=== PATIENT | female | born 1950 | race Caucasian/White ===

== ENCOUNTER 2018-12-31 16:38 | Outpatient (CLI) | payer MEDICARE, SELFPAY ==
[2018-12-31 14:59] LABS: Abs Immature Grans 0.02 k/cumm (0.0-0.09); Absolute Basophil Count 0.02 k/cumm (0.0-0.2); Absolute Eosinophil Count 0.03 k/cumm (0.0-0.7); Absolute Lymphocyte Count 0.79 k/cumm (1.2-3.4); Absolute Monocyte Count 1.37 k/cumm (0.11-0.7); Absolute Neutrophil Count 4.53 k/cumm (1.2-6.7); Basophils % 0.3; Eosinophils % 0.4; HCT 39.1 % (36.0-46.0); HGB 12.7 g/dL (12.0-15.5); Immature Grans % 0.3; Lymphocytes % 11.7; Mean Corp. HGB Concentration 32.5 g/dL (32.0-36.0); Mean Corpuscular Hemoglobin 29.2 pg (27.0-33.0); Mean Corpuscular Volume 89.9 fL (80-95); Mean Platelet Volume 9.4 fL (8.0-11.0); Monocytes % 20.3; Platelet Count 363 x1000/uL (130-400); RBC 4.35 m/cumm (4.00-5.20); RBC Distribution Width 13.5 % (11.7-14.6); White Blood Cell Count 6.76 k/cumm (4.4-10.8)
[2018-12-31 15:06] LABS: ALT 60 U/L (12-78); AST 39 U/L (15-37); Albumin 3.8 g/dL (3.4-5.0); Alkaline Phosphatase 122 U/L (46-116); Anion Gap 10.9 mmol/L (3-11); BUN 26 mg/dL (7-18); Bilirubin, Total 0.4 mg/dL (0.2-1.0); CO2 28.1 mmol/L (21.0-32.0); CREATININE 1.44 mg/dL (0.55-1.02); Calcium 8.7 mg/dL (8.5-10.1); Chloride 95 mmol/L (98-107); Estimated GFR 36.09 (mL/min/1.73m2); Glucose 113 mg/dL (70-100); Potassium 3.3 mmol/L (3.5-5.1); Sodium 134 mmol/L (136-145); Total Protein 7.9 g/dL (6.4-8.2)
--- NOTE | 2018-12-31 15:30 | DI.CT_ITS ---
SYMPTOM/DIAGNOSIS: RLQ PAIN, REBOUND TENDERNESS, DIARRHEA, ? APPENDICITIS ABDOMEN AND PELVIC CT: The study was carried out with oral contrast enhancement. No intravenous contrast was administered. There are some small regions of scarring in the lingula and right middle lobe. The lungs appear otherwise unremarkable with no evidence of a pleural effusion. The liver is intact. No focal abnormality is seen. The gallbladder is intact. There is no pericholecystic fluid. There are no demonstrated stones or evidence of ductal dilatation. The pancreas is unremarkable. The spleen is normal. Note is made of an 11 mm. left adrenal nodule, the findings are consistent with an adenoma. The kidneys are unremarkable. There is no evidence of nephrolithiasis or hydronephrosis. There is no evidence of bowel obstruction. Sigmoid and descending colonic diverticulosis is noted without evidence of diverticulitis. There is no evidence of an acute appendix. There are some small densities in the distal appendix which could represent contrast material or conceivably an appendicolith. The bladder is suboptimally distended. The reproductive organs as visualized appear intact. There is no evidence of free air or free fluid in the intraperitoneal space. No acute bony abnormality is seen. The soft tissues are unremarkable. Note is made of atherosclerotic changes involving the aorta and iliac vessels. There is no evidence of an aneurysm. SUMMARY: Question small appendicolith or appendicoliths. There is no finding to suggest an acute appendicitis. Note is made of diverticulosis without evidence of diverticulitis. There is an apparent left adrenal adenoma measuring approximately 11 mm. in diameter.
[2018-12-31] MEDS: Breeza Beverage 473 ML BTL PO ×2 (16:17→16:18)
[2018-12-31] MEDS: Omnipaque 350 MG/ML 50 ML BTL PO (16:18)
--- NOTE | 2018-12-31 16:56 | DI.VRAD_ITS ---
EXAM: CT Abdomen and Pelvis Without Contrast EXAM DATE/TIME: 12/31/2018 2:16 PM CLINICAL HISTORY: 68 years old, female; Signs and symptoms; Other: Rlq abd pain with rebound tenderness, diarrhea x 5 days, ? appendicitis TECHNIQUE: Imaging protocol: Axial computed tomography images of the abdomen and pelvis without contrast. Coronal and sagittal reformatted images were created and reviewed. Radiation optimization: All CT scans at this facility use at least one of these dose optimization techniques: automated exposure control; mA and/or kV adjustment per patient size (includes targeted exams where dose is matched to clinical indication); or iterative reconstruction. COMPARISON: No relevant prior studies available. FINDINGS: Limitations: The absence of intravenous contrast material limits evaluation of the abdominal and pelvic viscera, and the vasculature. Lower thorax: Scarring in the lingula and RIGHT middle lobe. Lower chest otherwise unremarkable as visualized. ABDOMEN: Liver: The liver is normal in size and density. The hepatic contour is normal. There are no focal hepatic masses. Gallbladder and bile ducts: The gall bladder is normal in size. There is no gall bladder wall thickening. There are no gallstones or pericholecystic collection. The common duct and intrahepatic ducts are normal in caliber. Pancreas: The pancreas is normal in size and density. There are no pancreatic calcifications or ductal dilatation. Spleen: The spleen is normal in size. No focal splenic lesions are noted. Adrenals: Normal RIGHT adrenal gland. 11 mm LEFT adrenal nodule with a density of 4 Hounsfield units consistent with an adenoma.There are no gross focal renal masses. No radioopaque renal calculi are noted. There is no hydronephosis. Kidneys and ureters: See Adrenals Finding. Stomach and bowel: Sigmoid and descending colonic diverticulosis. No fat stranding or fluid collections to suggest diverticulitis. There is mild thickening of the wall of a distal ileal loop (series 2, images 47-52). This is likely due to incomplete distention. There is no surrounding fat stranding to suggest inflammation. Stomach is unremarkable. There is lipomatous infiltration of the ileocecal valve. Appendix: The appendix is normal in caliber and contains a wall collapse material proximally and more hyperdense material distally, the latter probably representing an appendicolith. There is no periappendiceal fat straining or fluid collection to suggest appendicitis. PELVIS: Bladder: Contracted, limiting evaluation. Reproductive: Uterus unremarkable for age. Bilateral adnexal hypoattenuated lesions measuring up to 1.8 cm on the RIGHT and 1.0 cm on the LEFT. No followup is necessary. ABDOMEN and PELVIS: Intraperitoneal space: There is no evidence of free intraperitoneal air. There is no abdominal or pelvic ascites. Bones/joints: Degenerative changes of the lumbar spine. No acute fracture. Soft tissues: Soft tissues are unremarkable. Vasculature: Atherosclerotic calcification of the non-aneurysmal normal aorta and iliac arteries. Lymph nodes: See Adrenals Finding. IMPRESSION: 1. The appendix probably containing an appendicolith. No evidence of acute appendicitis. 2. Mild thickening of the wall of the infrarenal which may be due to incomplete distention. Pneumonitis is not excluded but less likely given the absence of surrounding fat stranding. Clinical correlation advised. 3. Colonic diverticulosis without CT evidence of diverticulitis. 4. LEFT adrenal adenoma. No followup is necessary. https://www.jacr.org/article/[email or web address]/fulltext?code=jacr-site#s ec11 <https://www.jacr.org/article/[email or web address]/fulltext?code=jacr-site> 5. Bilateral adnexal hypoattenuated lesions. No followup is necessary. Reference: Bradford Rodrigues MD, et al. (2013) Managing Incidental Findings on Abdominal and Pelvic CT and MRI, Part 1: White Paper of the ACR Incidental Findings Committee II on Adnexal Findings, JACR 10:675-678. 6. Additional incidental/nonemergent findings as discussed above. Dictated and Authenticated by: Katy Lockwood MD. Ordering:AYLEEN Arce MD
== END 2018-12-31 16:58 ==
DX: R19.7 Diarrhea, unspecified (principal); R10.31 Right lower quadrant pain; K57.90 Diverticulosis of intestine, part unspecified, without perforation or abscess without bleeding; D35.00 Benign neoplasm of unspecified adrenal gland
CPT/HCPCS: 80053; 74176; 82565; 85025; Q9967

== ENCOUNTER 2019-01-12 08:26 | Inpatient (IN) | payer MEDICARE, SELFPAY ==
[2019-01-12] VITALS (34 sets, daily range): BP systolic 93–154; BP diastolic 55–91; PULSE 105–127; RESP 18–42; TEMP 36.7–37.2; O2SAT 85–100
--- NOTE | 2019-01-12 08:38 | DI.RAD_ITS ---
SYMPTOM/DIAGNOSIS: COUGH, SOB, COPD R/O PNEUMONIA PA AND LATERAL CHEST: 01/12/19 The heart is not enlarged. There appears to be changes of COPD and mild interstitial scarring. No focal consolidation seen. No pleural effusion seen. CONCLUSION: No evidence of acute disease.
--- NOTE | 2019-01-12 08:40 | W.ED.GENAD ---
Discharge Plan Disposition Patient Disposition: [facility] INPATIENT Condition: Improving Discharge Details Chief Complaint: RespSymp Clinical Impression: Community acquired pneumonia, Asthma exacerbation in COPD Primary Care Provider: Yazmin Yañez ED Provider: Levy Sutton Home Meds and New Rx's Prescriptions: No Action fluticasone propion-salmeterol [Advair Diskus] 1 EACH blister with device 1 puff Inhalation BID Qty: 3 RF: 4 albuterol sulfate 2.5 MG/3 ML solution for nebulization 1 amp Inhalation QID PRN Qty: 50 RF: 11 amlodipine 5 MG tablet 5 mg PO DAILY Qty: 90 RF: 4 omeprazole 20 MG capsule,delayed release(DR/EC) 20 mg PO DAILY Qty: 90 RF: 3 montelukast 10 MG tablet 10 mg PO DAILY Qty: 90 RF: 3 furosemide 20 MG tablet 20 mg PO QAM Qty: 90 RF: 4 COMBIVENT RESPIMAT INHAL SPRAY 4 GM AER.W.ADAP 1 puff Inhalation QID Qty: 3 RF: 4 Medical Decision Making This is a pleasant 68-year-old female who presents with 3 weeks of cough, shortness of breath, productive green yellow and yao sputum. She has pain only with cough, no severe pleuritic chest pain or chest heaviness or tightness. No history of cardiac disease. She did have diarrhea 3 weeks ago which led to a CT scan of her abdomen pelvis which showed no evidence of significant abnormality at that time in her chest abdomen or pelvis. Exam today demonstrates mild tachypnea, mild hypoxemia, and tachycardia. She is afebrile. Exam demonstrates crackles in the bases and wheezes throughout. Concern for community-acquired pneumonia in conjunction with COPD exacerbation. Will perform a cardiac workup, rehydrate, treat for COPD and reassess. It is likely she will require admission. 11:41 AM Laboratory workup demonstrates an elevated white count, notable left shift, no bandemia, electrolytes demonstrate slightly low potassium and calcium which are being corrected. VBG shows mild CO2 retention at 52. Renal function stable, troponin normal, proBNP normal. Initial chest x-ray read was read as unchanged, however I do feel that there is infiltrate in the right lower cardiac border, concerning for potential community-acquired pneumonia. Patient has responded well to the breathing treatments and steroids. With a benign EKG, normal troponin, I feel that her signs and symptoms are clinically consistent with COPD exacerbation in conjunction with community-acquired pneumonia. We have started Rocephin and azithromycin. I discussed the case with hospitalist, the hospital staff agrees with the assessment and plan. The patient will be admitted for further medical management I have extensively reviewed the treatment plan with the patient. I have addressed all patient concerns at this time. I have also discussed the plan with the admitting physician and they agree with the current assessment and plan and have agreed to assume responsibility for the patient. All parties demonstrate verbal understanding and agreement with our assessment and plan at this time. . EKG 8: 47 Rate 115, intervals normal, sinus tachycardia, no significant ST elevations or depressions, small Q wave noted in lead III, no T wave inversions. No evidence of STEMI HPI General Date/Time Provider Initiated Documentation: 01/12/19 08:30. HPI Narrative: This is a 68-year-old female with a past medical history of COPD, hypertension, arthritis, who presents today for evaluation of shortness of breath and cough for the last 3 weeks. She has associated productive yellow and green sputum. Occasional yao sputum. She does admit to chills but denies any fever. She does have some pain when she is coughing but denies any regular chest pain, chest pressure, chest heaviness, arm, neck, or shoulder pain. She has been taking her breathing treatment but this is not resolved her symptoms. She denies any history of cardiac disease or blood clot. She does admit to mild swelling around her ankles. Patient denies any recent long trips, surgeries or procedures. She denies any other acute complaints. Breathing treatments have been slightly improving her symptoms. Patient denies any other complaints at this time. Related Data Home Medications Medication Instructions Recorded Confirmed albuterol sulfate 1 amp INHALATION QID PRN #50 amp 05/27/18 01/12/19 amlodipine 5 mg PO DAILY #90 tab-cap 05/27/18 01/12/19 fluticasone propion-salmeterol 1 puff INHALATION BID #3 disk 05/27/18 01/12/19 [Advair 250/50 Diskus] furosemide 20 mg PO QAM #90 tab-cap 05/27/18 01/12/19 montelukast 10 mg PO DAILY #90 tab-cap 05/27/18 01/12/19 omeprazole 20 mg PO DAILY #90 tab-cap 05/27/18 01/12/19 Previous Rx's Medication Instructions Recorded albuterol sulfate 1 amp INHALATION QID PRN #50 amp 05/27/18 amlodipine 5 mg PO DAILY #90 tab-cap 05/27/18 fluticasone propion-salmeterol 1 puff INHALATION BID #3 disk 05/27/18 [Advair 250/50 Diskus] furosemide 20 mg PO QAM #90 tab-cap 05/27/18 montelukast 10 mg PO DAILY #90 tab-cap 05/27/18 omeprazole 20 mg PO DAILY #90 tab-cap 05/27/18 Allergies Allergy/AdvReac Type Severity Reaction Status Date / Time hydrochlorothiazide Allergy Mild rash Verified 01/12/19 08:40 Sulfa (Sulfonamide Allergy Unknown Verified 01/12/19 08:40 Antibiotics) lisinopril AdvReac Mild did not Verified 01/12/19 08:40 feel well General Stated Complaint: RespSymp KAYCE: 3 Review of Systems Review of Systems All systems reviewed & are unremarkable except as noted in HPI and below PFSH Surgical History Endoscopic Carpal Tunnel release (03/31/13) Family History Mother Essential hypertension Hyperlipidemia Father Heart disease Neoplasm Sister No problems noted. Sister No problems noted. Brother No problems noted. Brother No problems noted. Grandfather Stroke Grandfather Heart disease Grandmother Heart disease Grandmother Stroke Son Diabetes Essential hypertension Daughter No problems noted. Social History Smoking/Tobacco Use Status: Former Tobacco Use Alcohol Intake: never Drug use: Never Do you feel safe at home: Yes Do you feel safe in your relationship?: Yes Exam Narrative Exam Narrative: 1.Const: Well-nourished, Well-developed, appearing stated age 2.Eyes: PERRL, no conjunctival injection, and symmetrical lids. 3.ENT: Atraumatic external nose and ears. Moist MM. Neck: Symmetric, trachea midline, No thyromegaly. 4.CVS: +S1/S2, No murmurs or gallops. Peripheral pulses 2+ and equal in all extremities. Brisk capillary refill in all extremities. 5.RESP: Mild tachypnea, reduced breath sounds throughout, wheezes throughout, crackles in the bases. 6.GI: Soft, Nontender/Nondistended, No hepatosplenomegaly. No guarding or rebound. 7.MSK: Normocephalic/Atraumatic, Extremities w/o deformity or ttp No cyanosis or clubbing, Normal movement of all extremities. No calf tenderness. 8.Skin: Warm, Dry. No rashes or lesions. 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 Sensation grossly intact, no focal neurologic deficits. 10.Psych: (AAO) x3. Appropriate mood and affect Course Vital Signs Temperature 36.7 C 01/12/19 08:30 Pulse 118 H 01/12/19 08:30 Respiratory Rate 20 01/12/19 08:30 Blood Pressure 133/80 01/12/19 08:30 Pulse Oximetry 91 L 01/12/19 08:30 Temperature 36.7 C 01/12/19 08:30 Temperature Source Temporal Artery Scan 01/12/19 08:30 Pulse 118 H 01/12/19 08:30 Respiratory Rate 20 01/12/19 08:30 Respiratory Effort Accessory Muscle Use 01/12/19 08:38 Blood Pressure 133/80 01/12/19 08:30 Blood Pressure Position Sitting 01/12/19 08:30 Pulse Oximetry 91 L 01/12/19 08:30 Oxygen Delivery Method Room Air 01/12/19 08:30 Oxygen Flow Rate 0 01/12/19 08:30
[2019-01-12] MEDS: Albuterol/Ipratropium 3 ML UPD VIAL UPD ×3 (08:48→23:38)
[2019-01-12] MEDS: methylPREDNISolone SUCC 125 MG VIAL IVP (09:05)
[2019-01-12] MEDS: Normal Saline 1,000 ML 1000 ML IV (09:08)
[2019-01-12 09:18] LABS: BE (Venous) 4.6 mmol/L (-3-3); HCO3 (Venous) 30 mmol/L (22-28); O2 Sat (Venous) 64 % (70-80); TCO2 (Venous) 28 mmol/L (22-29); pCO2 (Venous) 52 mm/Hg (34-47); pH (Venous) 7.37 (7.32-7.43); pO2 (Venous) 35 mm/Hg (28-44)
[2019-01-12 09:20] LABS: Abs Immature Grans 0.03 k/cumm (0.0-0.09); Absolute Eosinophil Count 0.04 k/cumm (0.0-0.7); Absolute Lymphocyte Count 0.76 k/cumm (1.2-3.4); Basophils % 0.2; Eosinophils % 0.3; HCT 36.3 % (36.0-46.0); HGB 11.4 g/dL (12.0-15.5); Immature Grans % 0.2; Lymphocytes % 6.2; Mean Corp. HGB Concentration 31.4 g/dL (32.0-36.0); Mean Corpuscular Hemoglobin 28.9 pg (27.0-33.0); Mean Corpuscular Volume 91.9 fL (80-95); Mean Platelet Volume 9.3 fL (8.0-11.0); Neutrophils % 80.1; Platelet Count 430 x1000/uL (130-400); RBC 3.95 m/cumm (4.00-5.20); RBC Distribution Width 13.8 % (11.7-14.6); White Blood Cell Count 12.33 k/cumm (4.4-10.8)
[2019-01-12 09:26] LABS: Absolute Basophil Count 0.02 k/cumm (0.0-0.2); Absolute Neutrophil Count 9.88 k/cumm (1.2-6.7)
[2019-01-12 09:34] LABS: PTT Activated 28.9 sec (21.0-31.4); Prothrombin Time 10.2 sec (9.3-11.0)
[2019-01-12 09:46] LABS: Diff Comment Diff Reviewed; RBC Morphology Normal
[2019-01-12 09:47] LABS: NT-proBNP 391 pg/mL
[2019-01-12 09:49] LABS: ALT 19 U/L (12-78); AST 12 U/L (15-37); Alkaline Phosphatase 115 U/L (46-116); Anion Gap 10.9 mmol/L (3-11); BUN 11 mg/dL (7-18); Bilirubin, Total 0.5 mg/dL (0.2-1.0); CO2 29.1 mmol/L (21.0-32.0); CREATININE 0.91 mg/dL (0.55-1.02); Calcium 7.7 mg/dL (8.5-10.1); Chloride 97 mmol/L (98-107); Glucose 107 mg/dL (70-100); Potassium 3.3 mmol/L (3.5-5.1); Sodium 137 mmol/L (136-145); TSH (W/Ref FT4) 2.43 uIU/mL (0.358-3.74); Total Protein 7.7 g/dL (6.4-8.2); Troponin I < 0.02 ng/mL (0.00-0.06)
[2019-01-12] MEDS: Albuterol/Ipratropium 3 ML UPD VIAL (10:04)
[2019-01-12] MEDS: cefTRIAXone 2 GM/50 ML BAG IVPB (10:52)
[2019-01-12] MEDS: Normal Saline 1,000 ML 100 ML IV (11:19)
[2019-01-12] MEDS: AZITHROMYCIN 500 MG in Normal Saline 250 ML 250 MG IVPB (11:31)
[2019-01-12] MEDS: POTASSIUM CHLORIDE 20 MEQ/100 ML BAG 50 MEQ IVPB (12:07)
[2019-01-12] MEDS: Enoxaparin 40 MG/0.4 ML SYR SC (13:42)
[2019-01-12] MEDS: Benzonatate 100 MG CAP PO ×2 (13:42→19:52)
[2019-01-12] MEDS: Normal Saline 1,000 ML 110 ML IV ×2 (14:15→20:51)
--- NOTE | 2019-01-12 14:31 | HPE_ITS ---
Date of service: 01/12/19 Time of Service: 14:28 Assessment and Plan (1) CAP (community acquired pneumonia): Start date: 01/12/19 Start time: 15:07 Current visit: Yes Status: Acute CAP started on ceftriaxone and azithromycin IV, steroids, blood cultures pending, mucolytics, updrafts, xoponex. Sputum cultures pending. She is requiring oxygen at this time. Continue to monitor. Echo was ordered given her COPD with c/o leg swelling in the evening, continue to monitor for fluid overload. (2) COPD with acute exacerbation: Start date: 01/12/19 Start time: 15:16 Current visit: Yes Status: Acute In the setting of pneumonia see above, SOB, tachycardia, O2 requirement of 2 liters at this time. (3) GERD (gastroesophageal reflux disease): Start date: 01/12/19 Start time: 15:26 Current visit: Yes Status: Chronic Protonix 40 mg daily (4) HTN (hypertension): Start date: 01/12/19 Start time: 15:27 Current visit: Yes Status: Chronic Continue home dose of amlodipine (5) DVT prophylaxis: Start date: 01/12/19 Start time: 15:27 Current visit: Yes Status: Acute lovenox subcu History of Present Illness Chief Complaint: CAP, COPD Exacerbation Narrative: Mrs. Myers is a 68 y.o female arriving to [facility] emergency deparment today with PMH of COPD non-oxygen dependent complaining of cough with yellow, green and brown sputum production and Shortness of breath. 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 She quit smoking 9 years ago. She has a PMH of COPD, HTN, Migraines. GERD. She had a bout of abdominal pain with diarrhea last week and was seen in the [facility] emergency department where an abdominal CT scan was done, resulting in small appendicolith no acute appendicitis. She was sent home, and she states she stayed in bed for two days. At this time she believes her breathing was worsening she started with a cough. She endorses chills, thinks she had a fever but did not check temperature. She came in today after worsening SOB x last couple days with ta chypnea, tachycardia, mild hypoxemia requiring 2 L oxygen. She was asked to be admitted to med surg. She was started on cefttiraxone with azithromycin, EKG was normal in ED with no history of CHF or cardiac disease. Blood cultures done in the ED are pending. We will obtain a sputum culture, start steroids, updrafts, neb with xoponex given the patient is tachy, and IVF. She has not had an echo and does endorse swelling to bilateral lower extremities at night. Her lungs are diminished but clear no wheezing, or rhonchi. No edema to bilateral extremities at this time. She denies CP, SOB, n/v/d. Review of Systems Constitutional Reports system reviewed and no additional complaints, except as docu Eyes Reports system reviewed and no additional complaints, except as docu ENT Reports system reviewed and no additional complaints, except as docu Cardiovascular Reports system reviewed and no additional complaints, except as docu Respiratory Reports as per HPI Gastrointestinal Reports system reviewed and no additional complaints, except as docu Genitourinary Reports system reviewed and no additional complaints, except as docu Musculoskeletal Reports system reviewed and no additional complaints, except as docu Integumentary/Breasts Reports system reviewed and no additional complaints, except as docu Neurologic Reports system reviewed and no additional complaints, except as docu Psychiatric Reports system reviewed and no additional complaints, except as docu Endocrine Reports system reviewed and no additional complaints, except as docu Hematologic/Lymphatic Reports system reviewed and no additional complaints, except as docu Allergic/Immunologic Reports system reviewed and no additional complaints, except as docu PFSH Medical History COPD (chronic obstructive pulmonary disease) (Chronic) GERD (gastroesophageal reflux disease) (Chronic) HTN (hypertension) (Chronic) Surgical History Endoscopic Carpal Tunnel release (03/31/13) Family History Mother Essential hypertension Hyperlipidemia Father Heart disease Neoplasm Sister No problems noted. Sister No problems noted. Brother No problems noted. Brother No problems noted. Grandfather Stroke Grandfather Heart disease Grandmother Heart disease Grandmother Stroke Son Diabetes Essential hypertension Daughter No problems noted. Social History Smoking/Tobacco Use Status: Former Tobacco Use Alcohol Intake: never Drug use: Never Do you feel safe at home: Yes Do you feel safe in your relationship?: Yes Meds Home Medications Medication Instructions Recorded Confirmed Type Combivent Respimat Inhal [place] 1 puff INHALATION QID #3 inhaler 05/27/18 01/12/19 Clinic albuterol sulfate 1 amp INHALATION QID PRN #50 amp 05/27/18 01/12/19 Rx amlodipine 5 mg PO DAILY #90 tab-cap 05/27/18 01/12/19 Rx fluticasone propion-salmeterol 1 puff INHALATION BID #3 disk 05/27/18 01/12/19 Rx [Advair 250/50 Diskus] furosemide 20 mg PO QAM #90 tab-cap 05/27/18 01/12/19 Rx montelukast 10 mg PO DAILY #90 tab-cap 05/27/18 01/12/19 Rx omeprazole 20 mg PO DAILY #90 tab-cap 05/27/18 01/12/19 Rx guaifenesin [Mucinex] 600 mg PO BID PRN 01/12/19 01/12/19 History Allergies Allergy/AdvReac Type Severity Reaction Status Date / Time hydrochlorothiazide Allergy Mild rash Verified 01/12/19 08:40 Sulfa (Sulfonamide Allergy Unknown Verified 01/12/19 08:40 Antibiotics) lisinopril AdvReac Mild did not Verified 01/12/19 08:40 feel well Exam Const General: cooperative and no acute distress Orientation: alert, awake and oriented x3 HENMT Head: normal to inspection Eyes General: appearance normal, both eyes and all related structures Pupils: PERRL Neck Neck: normal visual inspection Chest Chest: normal inspection of the chest Resp Effort & Inspection: able to speak in complete sentences and tachypneic Auscultation: clear to auscultation bilaterally Cardio Jugular venous pressure: no JVD Palpation: normal PMI Rate: regular rate Rhythm: regular rhythm Heart Sounds: S1 normal GI Inspection: normal to inspection Auscultation: normal bowel sounds Skin General skin exam: no rashes or lesions noted Neuro General: alert, awake and oriented x3 Extrem General: normal to inspection Results Labs : 01/12/19 09:05 01/12/19 09:05 Laboratory Results - last 24 hr 01/12/19 01/12/19 01/12/19 08:37 09:05 09:05 WBC RBC Hgb Hct MCV MCH MCHC RDW Plt Count MPV Immature Gran % Neutrophils % Lymphocytes % Monocytes % Eosinophils % Basophils % Absolute Neutrophils Absolute Lymphocytes Absolute Monocytes Absolute Eosinophils Absolute Basophils Differential Comment RBC Morphology PT INR APTT VBG pH VBG pCO2 VBG pO2 VBG HCO3 VBG Total CO2 VBG O2 Saturation VBG Base Excess Sodium 137 Potassium 3.3 L Chloride 97 L Carbon Dioxide 29.1 Anion Gap 10.9 BUN 11 Creatinine 0.91 Estimated GFR/1.73 m2 >= 60.00 Glucose 107 H Lactate 1.0 Calcium 7.7 L Total Bilirubin 0.5 AST 12 L ALT 19 Alkaline Phosphatase 115 Troponin I < 0.02 NT-Pro-B Natriuret Pep 391 H Total Protein 7.7 Albumin 3.0 L TSH 2.43 01/12/19 01/12/19 01/12/19 09:05 09:05 09:05 WBC 12.33 H RBC 3.95 L Hgb 11.4 L Hct 36.3 MCV 91.9 MCH 28.9 MCHC 31.4 L RDW 13.8 Plt Count 430 H MPV 9.3 Immature Gran % 0.2 Neutrophils % 80.1 Lymphocytes % 6.2 Monocytes % 13.0 Eosinophils % 0.3 Basophils % 0.2 Absolute Neutrophils 9.88 H Absolute Lymphocytes 0.76 L Absolute Monocytes 1.60 H Absolute Eosinophils 0.04 Absolute Basophils 0.02 Differential Comment Diff reviewed RBC Morphology Normal PT 10.2 INR 1.0 APTT 28.9 VBG pH 7.37 VBG pCO2 52 H VBG pO2 35 VBG HCO3 30 H VBG Total CO2 28 VBG O2 Saturation 64 L VBG Base Excess 4.6 H Sodium Potassium Chloride Carbon Dioxide Anion Gap BUN Creatinine Estimated GFR/1.73 m2 Glucose Lactate Calcium Total Bilirubin AST ALT Alkaline Phosphatase Troponin I NT-Pro-B Natriuret Pep Total Protein Albumin TSH Last Vital Signs Temp 37.1 C 01/12/19 12:56 Pulse 120 H 01/12/19 12:56 Resp 21 01/12/19 12:56 BP 129/79 01/12/19 12:56 Pulse Ox 94 L 01/12/19 12:56
[2019-01-12] MEDS: guaiFENesin 600 MG TABCR PO (19:51)
[2019-01-12] MEDS: Budesonide/Formoterol 160/4.5 6 GM 60 PUFF INH IH (19:51)
[2019-01-12] MEDS: Normal Saline Flush 10 ML SYR IVP (19:51)
[2019-01-12] MEDS: methylPREDNISolone SUCC 125 MG VIAL 80 MG IVP (19:52)
[2019-01-13] VITALS (15 sets, daily range): BP systolic 128–152; BP diastolic 68–88; PULSE 108–120; RESP 2–24; TEMP 36.2–37.3; O2SAT 90–94
[2019-01-13] MEDS: Albuterol/Ipratropium 3 ML UPD VIAL UPD ×4 (06:01→23:43)
[2019-01-13] MEDS: Normal Saline 1,000 ML 110 ML IV (06:01)
[2019-01-13] MEDS: Budesonide/Formoterol 160/4.5 6 GM 60 PUFF INH IH ×2 (07:17→19:46)
--- NOTE | 2019-01-13 07:31 | PT.INIE ---
Date of service: 01/12/19 Time of Service: 15:42 PT Notes Inpatient Physical Therapy Evaluation Date: 01/12/2019 Referring Doctor: Bianca Prescott NP PT Orders: PT CONSULT: Chronic disease deconditioning Precautions: Fall. Standard. Low endurance, needs frequent rests. Patient Profile/Admitting Diagnosis: Patient is a 68-year-old female who presented to the ED early this morning with chief complaints of cough with yellow, green and brown sputum as well as shortness of breath. Patient was found to be tachypneic, tachycardic and mildly hypoxemic requiring 2 L of oxygen. Patient was diagnosed with community-acquired pneumonia and with acute on chronic obstructive pulmonary disease and is on DVT prophylaxis. Orders for physical therapy received today for functional mobility training and maximization of functional activity tolerance. 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 She is independent with all aspects of ADLs with no assistive ambulatory device nor adaptive equipment. She still drives. She states she has 1 step to enter the house who he shares with her son and grandson. Current Functional Limitations: Patient has poor activity tolerance which has limited her ability to participate in all aspects of ADLs Equipment Owned/DME: None Subjective: Patient was seen lying in bed with head of bed elevated some 30 degrees. She is agreeable to a PT consult although is unsure of how much will be due to persistent shortness of breath. Objective: General Observation: Continuous oxygen at 2 L/min via NC. Patient seen dyspneic at rest and with conversation. Swelling on BUE/LE noted. No digital clubbing/cyanosis observed. Mental Status: Alert and oriented x3 Pain: 0/10 ROM: Right Upper Extremity: Shoulder Flexion WFL. Shoulder abduction WFL. Elbow flexion WFL. Wrist flexion WFL. Functional opening and closing of hand WFL. Left Upper Extremity: Shoulder Flexion WFL. Shoulder abduction WFL. Elbow flexion WFL. Wrist flexion WFL. Functional opening and closing of hand WFL. Right Lower Extremity: Hip flexion WFL. Hip abduction WFL. Knee flexion WFL. Ankle dorsiflexion WFL. Ankle plantarflexion WFL. Left Lower Extremity: Hip flexion WFL. Hip abduction WFL. Knee flexion WFL. Ankle dorsiflexion WFL. Ankle plantarflexion WFL. STRENGTH: Right Upper Extremity: Shoulder flexors 5/5. Shoulder abductors 5/5. Elbow flexors 5/5. Elbow extensors 5/5. Pneumatic Tester Mechanic strong. Left Upper Extremity: Shoulder flexors 5/5. Shoulder abductors 5/5. Elbow flexors 5/5. Elbow extensors 5/5. Pneumatic Tester Mechanic strong. Right Lower Extremity: Hip flexors 4/5. Hip abductors 4/5. Knee flexors 4/5. Knee extensors 4/5. Ankle dorsiflexors 5/5. Ankle plantarflexors 5/5. Right Lower Extremity:Hip flexors 4/5. Hip abductors 4/5. Knee flexors 4/5. Knee extensors 4/5. Ankle dorsiflexors 5/5. Ankle plantarflexors 5/5. Sensation: Intact to B UE LE as to pain and pressure. BED MOBILITY LEVELS/TRANSFERS Rolling supervision Supine to sit supervision Sit to supine supervision Sit to stand SBA Stand to sit SBA Bed to chair SBA Chair to bed SBA Gait: Patient managed to perform level surface ambulation although with significant difficulty and shortness of breath 40 feet up to the hallway, 20 feet inside room x 3 with slowed theresa and with trunk hunched due to SOB with oxygen saturation ranging from 84% to 91% on 2 L of oxygen. Patient complained of dizziness and supplementation was increased to 3 L back two with extensive cueing for pursed lip breathing. Balance: Static Sitting: Good Dynamic Sitting: Good Static Standing: Fair Dynamic Standing: Fair Special Tests: Mobility Limitations Standardized Measure [facility] AM-PAC 6 clicks basic Mobility Inpatient Short Form: Raw Score: 22 CMS score: 21% deficit 4-Stage Balance Test: Feet side by side 10 minutes. Instep to big toe position 10 minutes. Tandem stand 10 minutes able to assume with assistance but unable to maintain. Standing on one foot 10 minutes able to assume with assistance but unable to mid. Informed Consent/Education: Patient instructed in purpose of PT consult and plan of care. She was instructed on correct technique for pursed lip breathing, activity pacing, and energy conservation techniques. Assessment: Patient is a 68 year old female referred to physical therapy services with the diagnosis of progression of community-acquired pneumonia acute on chronic COPD. Patient presents with clinical signs and symptoms consistent with current/admitting diagnoses that have resulted to mobility limitations, gait instability, generalized weakness, and impairment of motor control as demonstrated by the following impairment level findings: 1. Decreased strength to B LE major muscle groups 2. Impaired sitting/standing balance 3. Impaired activity tolerance Impairments are contributing to the following functional limitations: 1. Increased completion time for bed mobility skills 2. Increased completion time for transfers 3. Inability to safely ambulate without assistive device and physical assistance 4. Increase completion time for mobility ADL performance 5. Increased fall risk 6. Inability to negotiate steps alone safely Patient is assessed as a Moderate 85173 complexity based on the following: History: 68-year-old female with diagnosis of complete acquired pneumonia and acute on chronic COPD had been independent with all aspects of ADLs prior to admission he Examination: Underlying impairments and functional deficits resulting to 1 AM-PAC score of 22 and an equivalent CMS score of 21% deficit Presentation: Evolving Decision Makin moderate complexity Goals: Goals X1 week 1. Supine-Sit independent 2. Sit-Supine independent 3. Sit-Stand independent 4. Stand-Sit independent 5. Bed-Chair independent 6. Chair-Bed independent 7. Independent gait on level surface without use of assistive device for at least 300 feet without report of pain nor dyspnea 8. Independent stair negotiation while holding onto bilateral rails for at least 3 steps without report of pain nor dyspnea 9. Independent with home exercise program 10. Good static and dynamic standing balance/tolerance Plan of Care/Treatment Plan: 1-2x/day, 7 days/week x 1 week. Plan of care has been reviewed with the EXERCISE PLANNER providing the service under Physical Therapy direction. Initiate Physical Therapy intervention for strengthening, bed mobility, transfers, gait, stairs, balance training, use of assistive device. DISCHARGE RECOMMENDATIONS: Patient will highly benefit from participating in a in outpatient pulmonary rehabilitation program to facilitate return to premorbid independent level. No anticipated equipment needs. TREATMENT CODE/TIME: 9716 237 minutes beginning at 15:42 PM. Thank you for this referral. Susana Lainez, PT, DPT, CLT [facility]
--- NOTE | 2019-01-13 07:34 | IN_ITS ---
Date of service: 01/12/19 Time of Service: 15:42 PT Notes Inpatient Physical Therapy Evaluation Date: 01/12/2019 Referring Doctor: Bianca Prescott NP PT Orders: PT CONSULT: Chronic disease deconditioning Precautions: Fall. Standard. Low endurance, needs frequent rests. Patient Profile/Admitting Diagnosis: Patient is a 68-year-old female who presented to the ED early this morning with chief complaints of cough with yellow, green and brown sputum as well as shortness of breath. Patient was found to be tachypneic, tachycardic and mildly hypoxemic requiring 2 L of oxygen. Patient was diagnosed with community-acquired pneumonia and with acute on chronic obstructive pulmonary disease and is on DVT prophylaxis. Orders for physical therapy received today for functional mobility training and maximization of functional activity tolerance. 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 She is independent with all aspects of ADLs with no assistive ambulatory device nor adaptive equipment. She still drives. She states she has 1 step to enter the house who he shares with her son and grandson. Current Functional Limitations: Patient has poor activity tolerance which has limited her ability to participate in all aspects of ADLs Equipment Owned/DME: None Subjective: Patient was seen lying in bed with head of bed elevated some 30 degrees. She is agreeable to a PT consult although is unsure of how much will be due to persistent shortness of breath. Objective: General Observation: Continuous oxygen at 2 L/min via NC. Patient seen dyspneic at rest and with conversation. Swelling on BUE/LE noted. No digital clubbing/cyanosis observed. Mental Status: Alert and oriented x3 Pain: 0/10 ROM: Right Upper Extremity: Shoulder Flexion WFL. Shoulder abduction WFL. Elbow flexion WFL. Wrist flexion WFL. Functional opening and closing of hand WFL. Left Upper Extremity: Shoulder Flexion WFL. Shoulder abduction WFL. Elbow flexion WFL. Wrist flexion WFL. Functional opening and closing of hand WFL. Right Lower Extremity: Hip flexion WFL. Hip abduction WFL. Knee flexion WFL. Ankle dorsiflexion WFL. Ankle plantarflexion WFL. Left Lower Extremity: Hip flexion WFL. Hip abduction WFL. Knee flexion WFL. Ankle dorsiflexion WFL. Ankle plantarflexion WFL. STRENGTH: Right Upper Extremity: Shoulder flexors 5/5. Shoulder abductors 5/5. Elbow flexors 5/5. Elbow extensors 5/5. Bisque Grader strong. Left Upper Extremity: Shoulder flexors 5/5. Shoulder abductors 5/5. Elbow flexors 5/5. Elbow extensors 5/5. Bisque Grader strong. Right Lower Extremity: Hip flexors 4/5. Hip abductors 4/5. Knee flexors 4/5. Kne e extensors 4/5. Ankle dorsiflexors 5/5. Ankle plantarflexors 5/5. Right Lower Extremity:Hip flexors 4/5. Hip abductors 4/5. Knee flexors 4/5. Knee extensors 4/5. Ankle dorsiflexors 5/5. Ankle plantarflexors 5/5. Sensation: Intact to B UE LE as to pain and pressure. BED MOBILITY LEVELS/TRANSFERS Rolling supervision Supine to sit supervision Sit to supine supervision Sit to stand SBA Stand to sit SBA Bed to chair SBA Chair to bed SBA Gait: Patient managed to perform level surface ambulation although with significant difficulty and shortness of breath 40 feet up to the hallway, 20 feet inside room x 3 with slowed theresa and with trunk hunched due to SOB with oxygen saturation ranging from 84% to 91% on 2 L of oxygen. Patient complained of dizziness and supplementation was increased to 3 L back two with extensive cueing for pursed lip breathing. Balance: Static Sitting: Good Dynamic Sitting: Good Static Standing: Fair Dynamic Standing: Fair Special Tests: Mobility Limitations Standardized Measure [facility] AM-PAC 6 clicks basic Mobility Inpatient Short Form: Raw Score: 22 CMS score: 21% deficit 4-Stage Balance Test: Feet side by side 10 minutes. Instep to big toe position 10 minutes. Tandem stand 10 minutes able to assume with assistance but unable to maintain. Standing on one foot 10 minutes able to assume with assistance but unable to mid. Informed Consent/Education: Patient instructed in purpose of PT consult and plan of care. She was instructed on correct technique for pursed lip breathing, activity pacing, and energy conservation techniques. Assessment: Patient is a 68 year old female referred to physical therapy services with the diagnosis of progression of community-acquired pneumonia acute on chronic COPD. Patient presents with clinical signs and symptoms consistent with current/admitting diagnoses that have resulted to mobility limitations, gait instability, generalized weakness, and impairment of motor control as demonstrated by the following impairment level findings: 1. Decreased strength to B LE major muscle groups 2. Impaired sitting/standing balance 3. Impaired activity tolerance Impairments are contributing to the following functional limitations: 1. Increased completion time for bed mobility skills 2. Increased completion time for transfers 3. Inability to safely ambulate without assistive device and physical assistance 4. Increase completion time for mobility ADL performance 5. Increased fall risk 6. Inability to negotiate steps alone safely Patient is assessed as a Moderate [id number] complexity based on the following: History: 68-year-old female with diagnosis of complete acquired pneumonia and acute on chronic COPD had been independent with all aspects of ADLs prior to admission he Examination: Underlying impairments and functional deficits resulting to 1 AM- PAC score of 22 and an equivalent CMS score of 21% deficit Presentation: Evolving Decision Makin moderate complexity Goals: Goals X1 week 1. Supine-Sit independent 2. Sit-Supine independent 3. Sit-Stand independent 4. Stand-Sit independent 5. Bed-Chair independent 6. Chair-Bed independent 7. Independent gait on level surface without use of assistive device for at least 300 feet without report of pain nor dyspnea 8. Independent stair negotiation while holding onto bilateral rails for at least 3 steps without report of pain nor dyspnea 9. Independent with home exercise program 10. Good static and dynamic standing balance/tolerance Plan of Care/Treatment Plan: 1-2x/day, 7 days/week x 1 week. Plan of care has been reviewed with the CHIEF ACCOUNTING OFFICER providing the service under Physical Therapy direction. Initiate Physical Therapy intervention for strengthening, bed mobility, transfers, gait, stairs, balance training, use of assistive device. DISCHARGE RECOMMENDATIONS: Patient will highly benefit from participating in a in outpatient pulmonary rehabilitation program to facilitate return to premorbid independent level. No anticipated equipment needs. TREATMENT CODE/TIME: 9716 237 minutes beginning at 15:42 PM. Thank you for this referral. Susana Lainez, PT, DPT, CLT [facility]
[2019-01-13 07:45] LABS: Abs Immature Grans 0.04 k/cumm (0.0-0.09); Absolute Basophil Count 0.01 k/cumm (0.0-0.2); Absolute Lymphocyte Count 0.52 k/cumm (1.2-3.4); Absolute Monocyte Count 0.45 k/cumm (0.11-0.7); Absolute Neutrophil Count 9.17 k/cumm (1.2-6.7); Basophils % 0.1; HCT 34.7 % (36.0-46.0); HGB 10.5 g/dL (12.0-15.5); Immature Grans % 0.4; Lymphocytes % 5.1; Mean Corp. HGB Concentration 30.3 g/dL (32.0-36.0); Mean Corpuscular Hemoglobin 28.4 pg (27.0-33.0); Mean Corpuscular Volume 93.8 fL (80-95); Mean Platelet Volume 9.3 fL (8.0-11.0); Monocytes % 4.4; Platelet Count 438 x1000/uL (130-400); White Blood Cell Count 10.19 k/cumm (4.4-10.8)
[2019-01-13 07:53] LABS: Anion Gap 11.7 mmol/L (3-11); BUN 9 mg/dL (7-18); CO2 27.3 mmol/L (21.0-32.0); CREATININE 0.79 mg/dL (0.55-1.02); Calcium 7.9 mg/dL (8.5-10.1); Chloride 102 mmol/L (98-107); Glucose 152 mg/dL (70-100); Magnesium 0.9 mg/dL (1.8-2.4); Potassium 3.5 mmol/L (3.5-5.1); Sodium 141 mmol/L (136-145)
[2019-01-13] MEDS: Montelukast 10 MG TAB PO (07:53)
[2019-01-13] MEDS: Pantoprazole 40 MG TABCR PO (07:53)
[2019-01-13] MEDS: Furosemide 20 MG TAB PO (07:53)
[2019-01-13] MEDS: guaiFENesin 600 MG TABCR PO ×2 (07:53→19:46)
[2019-01-13] MEDS: methylPREDNISolone SUCC 125 MG VIAL 80 MG IVP (07:54)
[2019-01-13] MEDS: Benzonatate 100 MG CAP PO ×3 (07:54→19:46)
[2019-01-13] MEDS: amLODIPine 5 MG TAB PO (07:54)
[2019-01-13] MEDS: Normal Saline Flush 10 ML SYR IVP ×2 (07:54→23:43)
--- NOTE | 2019-01-13 07:58 | PDOC.CMIN ---
- If Service Date Differs Date of service: 01/13/19 Time of Service: 07:58 Care Management Initial Assess REASON FOR HOSPITALIZATION:: Community acquired pneumonia, COPD exacerbation PAST MEDICAL HISTORY/PAST SURGICAL HISTORY:: Medical History: COPD (chronic obstructive pulmonary disease) (Chronic), GERD (gastroesophageal reflux disease), HTN (hypertension). Surgical History: Endoscopic Carpal Tunnel release (03/31/13) PREVIOUS FUNCTIONAL STATUS/SOCIAL/FAMILY SUPPORTS:: Jackie lives in her own home with her son and grandson. She has a daughter who lives in [place] and has 2 additional grandchildren and 2 great grandchildren. 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 She is completely independent with ADLs, driving, shopping etc. CURRENT FUNCTIONAL STATUS:: Jackie was sitting up in bed receiving 2L of oxygen via nasal cannula during CM visit. She was friendly and talkative and open in her responses to questions. She states she is feeling much better today but feels her health care providers are still concerned about her breathing. ADVANCE DIRECTIVES:: On file Has patient been provided with information about the portal?: No Did the patient sign up for the portal?: No (not interested) CODE STATUS:: DNR/DNI INSURANCE COVERAGE / FINANCIAL ISSUES:: Medicare CURRENT HOME/COMMUNITY SERVICES/EQUIPMENT:: None currently but did have home oxygen for a while after a previous hospital stay. PRIMARY CARE PHYSICIAN:: Yazmin Yañez NP POTENTIAL DISCHARGE NEEDS:: May need evaluation for home oxygen. PATIENT/FAMILY EDUCATION NEEDS:: Discharge plan, limitations, follow up plan of care and Ask Me Three. ANTICIPATED BARRIERS TO DISCHARGE:: May need home oxygen but is concerned about cost. TRANSPORTATION:: Via private automobile with family at time of discharge. PLAN:: Jackie is currently receiving oxygen, IV antibiotics and respiratory support. She will return home at discharge with no services, unless she needs home oxygen. CM will continue to provide support to patient, family, care team and ongoing discharge planning.
--- NOTE | 2019-01-13 08:12 | INITIAL_ITS ---
- If Service Date Differs Date of service: 01/13/19 Time of Service: 07:58 Care Management Initial Assess REASON FOR HOSPITALIZATION:: Community acquired pneumonia, COPD exacerbation PAST MEDICAL HISTORY/PAST SURGICAL HISTORY:: Medical History: COPD (chronic obstructive pulmonary disease) (Chronic), GERD (gastroesophageal reflux disease), HTN (hypertension). Surgical History: Endoscopic Carpal Tunnel release (03/31/13) PREVIOUS FUNCTIONAL STATUS/SOCIAL/FAMILY SUPPORTS:: Jackie lives in her own home with her son and grandson. She has a daughter who lives in [place] and has 2 additional grandchildren and 2 great grandchildren. 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 She is completely independent with ADLs, driving, shopping etc. CURRENT FUNCTIONAL STATUS:: Jackie was sitting up in bed receiving 2L of oxygen via nasal cannula during CM visit. She was friendly and talkative and open in her responses to questions. She states she is feeling much better today but feels her health care providers are still concerned about her breathing. ADVANCE DIRECTIVES:: On file Has patient been provided with information about the portal?: No Did the patient sign up for the portal?: No (not interested) CODE STATUS:: DNR/DNI INSURANCE COVERAGE / FINANCIAL ISSUES:: Medicare CURRENT HOME/COMMUNITY SERVICES/EQUIPMENT:: None currently but did have home oxygen for a while after a previous hospital stay. PRIMARY CARE PHYSICIAN:: Yazmin Yañez NP POTENTIAL DISCHARGE NEEDS:: May need evaluation for home oxygen. PATIENT/FAMILY EDUCATION NEEDS:: Discharge plan, limitations, follow up plan of care and Ask Me Three. ANTICIPATED BARRIERS TO DISCHARGE:: May need home oxygen but is concerned about cost. TRANSPORTATION:: Via private automobile with family at time of discharge. PLAN:: Jackie is currently receiving oxygen, IV antibiotics and respiratory support. She will return home at discharge with no services, unless she needs home oxygen. CM will continue to provide support to patient, family, care team and ongoing discharge planning.
--- NOTE | 2019-01-13 09:00 | MERGE_ITS ---
*[facility]* *[facility]* [address] [place] [address] Date of study: 01/13/2019 Transthoracic Echocardiography M-mode, complete 2D, complete spectral Doppler, and color Doppler *STUDY CONCLUSIONS* Summary: 1. Left ventricle: The cavity size was normal. Wall thickness was normal. Systolic function was hyperdynamic. The estimated ejection fraction was 65-70%. There was no dynamic obstruction. Wall motion was normal; there were no regional wall motion abnormalities. Findings consistent with diastolic dysfunction. Doppler parameters are consistent with high ventricular filling pressure. 2. Left atrium: The atrium was mildly dilated. 3. Right ventricle: The cavity size was normal. Wall thickness was normal. Systolic function was hyperdynamic. 4. Pulmonary arteries: Pulmonary systolic pressure was increased, in the range of 40mm Hg to 50mm Hg. *PATIENT PRESENTATION* Height: 157.5cm ((62in) ) S/D Pressure: 132 / 74 Weight: 76.2kg ((167.6lb) ) BSA: 1.85m^2 Test start time: 09:10 AM. Test stop time: 10:10 AM. PERFORMING Unknown ORDERING Fernando Parikh REFERRING Fernando Parikh PERFORMING Nv CONSULTING Yazmin Yañez [employer] DES[employer] ENGINEER RT Elisa (R)(WILL), FANNY *PROCEDURE DATA* Procedure information: The patient was identified by two identifiers. This study was interpreted by [facility]. Pertinent images and digital data are archived for permanent storage and are available for subsequent review. No prior study was available for comparison. Study status: Routine. Transthoracic echocardiography. M-mode, complete 2D, complete spectral Doppler, and color Doppler. A Transthoracic Echocardiogram was performed. Scanning was performed from the parasternal, apical, subcostal, and suprasternal notch acoustic windows. Images were obtained using an [id number] cardiac ultrasound machine. Image quality was adequate. Study completion: The patient tolerated the procedure well. There were no complications. History: PMH: COPD EDEMA. *CARDIAC ANATOMY* Left ventricle: The cavity size was normal. Wall thickness was normal. Systolic function was hyperdynamic. The estimated ejection fraction was 65-70%. There was no dynamic obstruction. Wall motion was normal; there were no regional wall motion abnormalities. Findings consistent with diastolic dysfunction. Doppler parameters are consistent with high ventricular filling pressure. Aortic valve: Trileaflet; normal thickness leaflets. Mobility was not restricted. Doppler: Transvalvular velocity was within the normal range. There was no stenosis. There was no significant regurgitation. VTI ratio of LVOT to aortic valve: 0.96. Valve area (VTI): 2.8cm^2. Indexed valve area (VTI): 1.5cm^2/m^2. Peak velocity ratio of LVOT to aortic valve: 0.76. Valve area (Vmax): 2.3cm^2. Indexed valve area (Vmax): 1.2cm^2/m^2. Mean velocity ratio of LVOT to aortic valve: 0.79. Valve area (Vmean): 2.4cm^2. Indexed valve area (Vmean): 1.3cm^2/m^2. Mean gradient (S): 5.9mm Hg. Peak gradient (S): 12.3mm Hg. Aorta: Aortic root: The aortic root was normal in size. Ascending aorta: The ascending aorta was normal in size. Mitral valve: Structurally normal valve. Mobility was not restricted. Doppler: Transvalvular velocity was within the normal range. There was no evidence for stenosis. There was trivial regurgitation. Peak gradient (D): 10.1mm Hg. Left atrium: The atrium was mildly dilated. Right ventricle: The cavity size was normal. Wall thickness was normal. Systolic function was hyperdynamic. Pulmonic valve: Structurally normal valve. Doppler: Transvalvular velocity was within the normal range. There was no evidence for stenosis. There was no significant regurgitation. Tricuspid valve: Structurally normal valve. Doppler: Transvalvular velocity was within the normal range. There was no evidence for stenosis. There was trivial regurgitation. Pulmonary artery: Pulmonary systolic pressure was increased, in the range of 40mm Hg to 50mm Hg. Right atrium: The atrium was normal in size. Pericardium: There was no pericardial effusion. Systemic veins: Inferior vena cava: Well visualized. The vessel was patent and normal in size. The respirophasic diameter changes were in the normal range (greater than or equal to 50%). Baseline ECG: Tachycardia. Measurements Left ventricle Value Reference LV ID, ED, PLAX 4.7 cm 3.5 - 6.0 LV ID, ES, PLAX 3.0 cm 2.1 - 4.0 LV PW thickness, ED, PLAX 1.0 cm LV end-diastolic volume, 1-p A2C 72 ml LV ejection fraction, 1-p A2C 64 % LV end-diastolic volume, 1-p A4C 94 ml LV ejection fraction, 1-p A4C 66 % LV e', lateral 0.073 m/sec LV E/e', lateral 22 Ventricular septum Value Reference IVS thickness, ED, PLAX 0.9 cm LVOT Value Reference LVOT ID, A-P 1.9 cm LVOT area 3 cm^2 LVOT peak velocity, S 1.33 m/sec LVOT mean velocity, S 0.88 m/sec LVOT VTI, S 25.8 cm LVOT peak gradient, S 7 mm Hg LVOT mean gradient, S 3.5 mm Hg Stroke volume (SV), LVOT DP 77 ml Stroke index (SV/bsa), LVOT DP 41 ml/m^2 Aortic valve Value Reference Aortic valve peak velocity, S 1.8 m/sec Aortic valve mean velocity, S 1.12 m/sec Aortic valve VTI, S 27.0 cm Aortic mean gradient, S 5.9 mm Hg Aortic peak gradient, S 12.3 mm Hg VTI ratio, LVOT/AV 0.96 Aortic valve area, VTI 2.8 cm^2 Velocity ratio, peak, LVOT/AV 0.76 Aortic valve area, peak velocity 2.3 cm^2 Velocity ratio, mean, LVOT/AV 0.79 Aortic valve area, mean velocity 2.4 cm^2 Aortic valve area/bsa, mean velocity 1.3 cm^2/m^2 Aorta Value Reference Aortic root ID, ED 3.1 cm Ascending aorta ID, A-P, S 3.4 cm Left atrium Value Reference LA ID, A-P, ES 3.6 cm LA ID/bsa, A-P 2.0 cm/m^2 <=2.2 LA area, ES, A4C 19.5 cm^2 8.8 - 23.4 LA area, ES, A2C 21 cm^2 LA volume/bsa, ES, 1-p A4C 34 ml/m^2 LA volume, ES, 2-p 59 ml LA volume/bsa, ES, 2-p 32 ml/m^2 LA/aortic root ratio 1.16 Mitral valve Value Reference Mitral E-wave peak velocity 1.59 m/sec Mitral peak gradient, D 10.1 mm Hg Tricuspid valve Value Reference Tricuspid regurg peak velocity 3.4 m/sec Tricuspid peak RV-RA gradient 46 mm Hg Right atrium Value Reference RA area, ES, A4C 12.1 cm^2 8.3 - 19.5 Legend: (L) and (H) trinh values outside specified reference range. I have personally reviewed the images and have reviewed and edited the reported findings. Electronically signed by Omar Coley 01/13/2019 11:02
[2019-01-13] MEDS: cefTRIAXone 1 GM/50 ML BAG IVPB (11:02)
[2019-01-13] MEDS: Potassium Chloride 20 MEQ TABCR 40 MEQ PO (11:02)
--- NOTE | 2019-01-13 11:17 | PHARADMIT ---
Addendum entered by Drew Degroot III 01/15/19 14:31: Pharmacy Note Subjective Experiencing tachycardia RT working on ambulating and SAO2's Objective BP-162/83 HR-108 K+4.2 Plts-589 H&h-OK WBC-10.62 Assessment Low dose Lopressor started. ABX to PO, Azithromycin & Vantin today. Symbicort DC'd Plan plan is for discharge home tomorrow. Original Note: Admission Pharmacy Clinical Review CAP, COPD exacerbation Code Status DNR/DNI Current Weight 76.657 kg Renally Cleared and Narrow Therapeutic Index Meds Crcl ~64.4 mL/min using adjusted body weight current meds okay QTc Value / Action Taken QTc 448 BP Control, Fever BP 132/74 afebrile Electrolytes reviewed mag 0.9 IV and PO mag replacement given DVT Prophylaxis enoxaparin Opiate Usage / Scheduled Bowel Regimen Ordered no/prn Plt/SCr for Heparin / Enoxaparin plt 438 SCr 0.79 INR for Warfarin n/a H/H stable, WBC/Bands h/h 10.5/34.7 WBC 10.19 Antibiotic appropriateness ceftriaxone and azithromycin (day2) Cultures and Sensitivities blood culture- one is pending other no growth @24 hours sputum culture- pending Surgical ABX d/c within 24 hr n/a DM control / Insulin Dosing BG 152 none Heart Failure (Check EF%) (DOE's, B-Block, Diuretics) EF 65-70% amlodipine, furosemide, IV to PO Switch n/a Home Meds Reviewed yes Home Meds Not Ordered albuterol(has xopenex ordered), combivent(has duonebs ordered), advair(symbicort substituted), omeprazole(has pantoprazole ordered) Comments
[2019-01-13] MEDS: AZITHROMYCIN 500 MG in Normal Saline 250 ML 250 MG IVPB (11:38)
[2019-01-13] MEDS: Enoxaparin 40 MG/0.4 ML SYR SC (11:38)
[2019-01-13] MEDS: MAGNESIUM SULFATE 4 GM/100 ML BAG IVPB (12:55)
[2019-01-13] MEDS: methylPREDNISolone SUCC 125 MG VIAL 60 MG IVP ×2 (16:21→23:43)
--- NOTE | 2019-01-13 16:40 | PGE_ITS ---
Date of Service Date of service: 01/13/19 Time of Service: 16:28 Assessment and Plan (1) CAP (community acquired pneumonia): Current visit: Yes Status: Acute Symptoms are improving. She remains afebrile, leukocytosis has resolved. Blood cultures have yielded no growth at 24 hours, sputum culture growing normal naomy. Continue ceftriaxone and azithromycin (day #2). Continue IV steroids, supplemental oxygen, scheduled nebulizer treatments and mucolytic's. She has been tachycardic, will place her on telemetry for continuous cardiac monitoring. (2) COPD with acute exacerbation: Current visit: Yes Status: Acute As above. (3) Tachycardia: Current visit: Yes Status: Acute Heart rate has consistently been over 100 in the setting of COPD exacerbation with pneumonia. Place her on telemetry for continued cardiac monitoring. (4) HTN (hypertension): Current visit: Yes Status: Chronic Blood pressure within acceptable range. Continue home dose of amlodipine. Echocardiogram today revealed LVEF of 65-70% with diastolic dysfunction, left atrium mildly dilated, pulmonary systolic pressure elevated in the range of 40- 50 mmHg. (5) GERD (gastroesophageal reflux disease): Current visit: Yes Status: Chronic Continue Protonix 40 mg daily. (6) DVT prophylaxis: Current visit: Yes Status: Acute Subcutaneous Lovenox. (7) Discharge planning issues: Current visit: Yes Status: Acute She is a DNR/DNI. This case was discussed with Dr. Parikh who is in agreement. Subjective Interval history since last seen: Mrs. Myers reports feeling better today. She continues to report shortness of breath with activity, no shortness of breath at rest. She continues to cough, productive of thick yellow sputum, she feels wheezy at times. She denies dizziness, chest pain/pressure, she has been tachycardic, she felt like her heart was racing with activity. She is eating and drinking and tolerating her diet, no nausea, vomiting or diarrhea. She denies dysuria or hematuria. Her bowels are moving normally, she had a bowel movement yesterday. She denies lower extremity edema. Exam Narrative Exam Narrative: General: She is sitting up at the edge of the bed, she is awake and alert, no acute distress, she is speaking complete sentences with no shor tness of breath. HEENT: Normocephalic, atraumatic, pupils equal and round, mucous membranes moist. Neck: Supple, no JVD. Respiratory: Respirations even and unlabored, rales to left lower lobe, no whee zing. Cardiovascular: Heart rate sounds regular, tachycardic. Gastrointestinal: Abdomen soft, nontender on palpation, normoactive bowel sounds, nondistended. Extremities: No clubbing, cyanosis or edema. Pedal pulses palpable bilaterally. Objective Objective Clinical Data: Abnormal lab results 01/13/19 01/13/19 Range/Units 07:28 07:28 RBC 3.70 L (4.00-5.20) m/cumm Hgb 10.5 L (12.0-15.5) g/dL Hct 34.7 L (36.0-46.0) % MCHC 30.3 L (32.0-36.0) g/dL Plt Count 438 H (130-400) x1000/uL Absolute Neutrophils 9.17 H (1.2-6.7) k/cumm Absolute Lymphocytes 0.52 L (1.2-3.4) k/cumm Anion Gap 11.7 H (3-11) mmol/L Glucose 152 H (70-100) mg/dL Calcium 7.9 L (8.5-10.1) mg/dL Magnesium 0.9 L (1.8-2.4) mg/dL Vital Signs Temperature 37.3 C 01/13/19 11:20 Temperature Source Tympanic 01/13/19 11:20 Pulse 120 H 01/13/19 11:20 Pulse Rhythm Regular 01/13/19 08:45 Pulse 121 H 01/12/19 12:20 Respiratory Rate 19 01/13/19 11:20 Respiratory Effort Non-Labored 01/13/19 08:45 Respiratory Depth Normal 01/13/19 08:45 Respiratory Pattern Normal 01/13/19 08:45 Blood Pressure 137/68 01/13/19 11:20 Blood Pressure Mean 76 01/12/19 12:15 Blood Pressure Position Sitting 01/12/19 08:30 Pulse Oximetry 93 L 01/13/19 11:20 Oxygen Delivery Method Nasal Cannula 01/13/19 11:20 Oxygen Flow Rate 2 01/13/19 11:20 Pain Level 0 01/13/19 12:49 Comment 01/13/19 07:10 Intake & Output 01/12/19 01/13/1901/13/19 23:59 11:59 23:59 Intake Total 1266 / 2316 1852.833 / 3852.833 2000 / 3852.833 Output Total 750 / 750 400 / 400 Balance 516 / 1566 1852.833 / 3452.833 1600 / 3452.833 Weight 76.657 kg Intake: IV 786 / 1836 1612.833 / 3112.833 1500 / 3112.833 Oral 480 / 480 240 / 740 500 / 740 Output: Urine 750 / 750 400 / 400 Other: Urine Color Yellow Yellow Urine Appearance Clear Clear Urine Odor None None Comment Void x1 in the bedside commode. Stool Size Moderate Stool Characteristics Soft Formed Voiding Methods Toilet Bedside Commode Laboratory Results WBC 10.19 k/cumm (4.4-10.8) 01/13/19 07:28 RBC 3.70 m/cumm (4.00-5.20) L 01/13/19 07:28 Hgb 10.5 g/dL (12.0-15.5) L 01/13/19 07:28 Hct 34.7 % (36.0-46.0) L 01/13/19 07:28 MCV 93.8 fL (80-95) 01/13/19 07:28 MCH 28.4 pg (27.0-33.0) 01/13/19 07:28 MCHC 30.3 g/dL (32.0-36.0) L 01/13/19 07:28 RDW 14.0 % (11.7-14.6) 01/13/19 07:28 Plt Count 438 x1000/uL (130-400) H 01/13/19 07:28 MPV 9.3 fL (8.0-11.0) 01/13/19 07:28 Immature Gran % 0.4 01/13/19 07:28 Neutrophils % 90.0 01/13/19 07:28 Lymphocytes % 5.1 01/13/19 07:28 Monocytes % 4.4 01/13/19 07:28 Eosinophils % 0.0 01/13/19 07:28 Basophils % 0.1 01/13/19 07:28 Absolute Neutrophils 9.17 k/cumm (1.2-6.7) H 01/13/19 07:28 Absolute Lymphocytes 0.52 k/cumm (1.2-3.4) L 01/13/19 07:28 Absolute Monocytes 0.45 k/cumm (0.11-0.7) 01/13/19 07:28 Absolute Eosinophils 0.00 k/cumm (0.0-0.7) 01/13/19 07:28 Absolute Basophils 0.01 k/cumm (0.0-0.2) 01/13/19 07:28 Differential Comment Diff reviewed 01/12/19 09:05 RBC Morphology Normal 01/12/19 09:05 PT 10.2 sec (9.3-11.0) 01/12/19 09:05 INR 1.0 (0.9-1.1) 01/12/19 09:05 APTT 28.9 sec (21.0-31.4) 01/12/19 09:05 VBG pH 7.37 (7.32-7.43) 01/12/19 09:05 VBG pCO2 52 mm/Hg (34-47) H 01/12/19 09:05 VBG pO2 35 mm/Hg (28-44) 01/12/19 09:05 VBG HCO3 30 mmol/L (22-28) H 01/12/19 09:05 VBG Total CO2 28 mmol/L (22-29) 01/12/19 09:05 VBG O2 Saturation 64 % (70-80) L 01/12/19 09:05 VBG Base Excess 4.6 mmol/L (-3-3) H 01/12/19 09:05 Sodium 141 mmol/L (136-145) 01/13/19 07:28 Potassium 3.5 mmol/L (3.5-5.1) 01/13/19 07:28 Chloride 102 mmol/L (98-107) 01/13/19 07:28 Carbon Dioxide 27.3 mmol/L (21.0-32.0) 01/13/19 07:28 Anion Gap 11.7 mmol/L (3-11) H 01/13/19 07:28 BUN 9 mg/dL (7-18) 01/13/19 07:28 Creatinine 0.79 mg/dL (0.55-1.02) 01/13/19 07:28 Estimated GFR/1.73 m2 >= 60.00 (mL/min/1.73m2) 01/13/19 07:28 Glucose 152 mg/dL (70-100) H 01/13/19 07:28 Lactate 1.0 mmol/l (0.6-1.4) 01/12/19 09:05 Calcium 7.9 mg/dL (8.5-10.1) L 01/13/19 07:28 Magnesium 0.9 mg/dL (1.8-2.4) L 01/13/19 07:28 Total Bilirubin 0.5 mg/dL (0.2-1.0) 01/12/19 09:05 AST 12 U/L (15-37) L 01/12/19 09:05 ALT 19 U/L (12-78) 01/12/19 09:05 Alkaline Phosphatase 115 U/L (46-116) 01/12/19 09:05 Troponin I < 0.02 ng/mL (0.00-0.06) 01/12/19 09:05 NT-Pro-B Natriuret Pep 391 pg/mL (-299) H 01/12/19 08:37 Total Protein 7.7 g/dL (6.4-8.2) 01/12/19 09:05 Albumin 3.0 g/dL (3.4-5.0) L 01/12/19 09:05 TSH 2.43 uIU/mL (0.358-3.74) 01/12/19 09:05
[2019-01-13] MEDS: Acetaminophen 325 MG TAB PO (19:45)
[2019-01-13] MEDS: Magnesium Oxide 400 MG TAB 800 MG PO (19:46)
[2019-01-14] VITALS (12 sets, daily range): BP systolic 129–167; BP diastolic 77–92; PULSE 93–120; RESP 4–24; TEMP 36.3–37; O2SAT 90–97
[2019-01-14] MEDS: Albuterol/Ipratropium 3 ML UPD VIAL UPD ×2 (06:00→12:35)
[2019-01-14 07:08] LABS: Anion Gap 5.6 mmol/L (3-11); BUN 8 mg/dL (7-18); CO2 32.4 mmol/L (21.0-32.0); CREATININE 0.87 mg/dL (0.55-1.02); Calcium 8.7 mg/dL (8.5-10.1); Chloride 99 mmol/L (98-107); Glucose 147 mg/dL (70-100); Magnesium 2.4 mg/dL (1.8-2.4); Potassium 4.1 mmol/L (3.5-5.1); Sodium 137 mmol/L (136-145)
[2019-01-14 07:09] LABS: Abs Immature Grans 0.07 k/cumm (0.0-0.09); Absolute Basophil Count 0.01 k/cumm (0.0-0.2); Absolute Lymphocyte Count 0.44 k/cumm (1.2-3.4); Absolute Monocyte Count 0.55 k/cumm (0.11-0.7); Absolute Neutrophil Count 9.92 k/cumm (1.2-6.7); Basophils % 0.1; HCT 36.1 % (36.0-46.0); Immature Grans % 0.6; Mean Corp. HGB Concentration 30.5 g/dL (32.0-36.0); Mean Corpuscular Hemoglobin 28.6 pg (27.0-33.0); Mean Corpuscular Volume 93.8 fL (80-95); Mean Platelet Volume 9.3 fL (8.0-11.0); Neutrophils % 90.3; Platelet Count 516 x1000/uL (130-400); RBC 3.85 m/cumm (4.00-5.20); RBC Distribution Width 13.7 % (11.7-14.6); White Blood Cell Count 10.99 k/cumm (4.4-10.8)
[2019-01-14] MEDS: Budesonide/Formoterol 160/4.5 6 GM 60 PUFF INH IH ×2 (07:27→19:26)
--- NOTE | 2019-01-14 07:59 | PDOC.CMPRO ---
- If Service Date Differs Date of service: 01/14/19 Time of Service: 08:00 Care Management Progress Note S/O:Jackie was walking in her room when CM came to visit. She was smiling and talkative and states she is feeling much better. She did well ambulating with PT and was able to maintain her oxygen saturation with only 1L of oxygen. She looks forward to returning home soon. A:Jackie is a 68 year old woman admitted with pneumonia and COPD exacerbation. P: Jackie is currently receiving oxygen, IV antibiotics and respiratory support. She will return home at discharge with no services, unless she needs home oxygen. CM will continue to provide support to patient, family, care team and ongoing discharge planning.
[2019-01-14] MEDS: Benzonatate 100 MG CAP PO ×3 (08:21→19:27)
[2019-01-14] MEDS: Pantoprazole 40 MG TABCR PO (08:21)
[2019-01-14] MEDS: Magnesium Oxide 400 MG TAB 800 MG PO ×2 (08:21→19:27)
[2019-01-14] MEDS: Montelukast 10 MG TAB PO (08:21)
[2019-01-14] MEDS: amLODIPine 5 MG TAB PO (08:21)
[2019-01-14] MEDS: Furosemide 20 MG TAB PO (08:22)
[2019-01-14] MEDS: guaiFENesin 600 MG TABCR PO ×2 (08:22→19:27)
[2019-01-14] MEDS: Normal Saline Flush 10 ML SYR IVP ×4 (08:22→16:51)
[2019-01-14] MEDS: methylPREDNISolone SUCC 125 MG VIAL 60 MG IVP ×2 (08:22→16:50)
[2019-01-14] MEDS: cefTRIAXone 1 GM/50 ML BAG IVPB (10:19)
[2019-01-14] MEDS: AZITHROMYCIN 500 MG in Normal Saline 250 ML 250 MG IVPB (12:30)
[2019-01-14] MEDS: Enoxaparin 40 MG/0.4 ML SYR SC (12:30)
--- NOTE | 2019-01-14 16:07 | CHAPLAIN ---
Jackie said she is feeling better. Her dog at home is missing her and paulino, family members told her. She has told family members not to visit because he likes to be by herself when she is not feeling well.
--- NOTE | 2019-01-14 17:19 | W.PM.PROGNOT ---
Date of Service Date of service: 01/14/19 Time of Service: 17:19 Assessment and Plan (1) CAP (community acquired pneumonia): Current visit: Yes Status: Acute Symptoms continue to improving. She remains afebrile, mild leukocytosis in the setting of systemic steroids. Blood cultures have yielded no growth at 48 hours, sputum culture growing normal naomy. Continue ceftriaxone and azithromycin (day #3). Continue IV steroids- begin to taper, supplemental oxygen, nebulizer treatments and mucolytic's. She has been tachycardic, telemetry shows sinus tachycardia. Change nebs to Xopenex PRN. (2) COPD with acute exacerbation: Current visit: Yes Status: Acute As above. (3) Tachycardia: Current visit: Yes Status: Acute Heart rate has consistently been over 100 in the setting of COPD exacerbation with pneumonia. Telemetry showing sinus tachycardia. Continue telemetry, change nebulizer treatment as above. (4) HTN (hypertension): Current visit: Yes Status: Chronic Blood pressure within acceptable range. Continue home dose of amlodipine. Echocardiogram today revealed LVEF of 65-70% with diastolic dysfunction, left atrium mildly dilated, pulmonary systolic pressure elevated in the range of 40-50 mmHg. (5) GERD (gastroesophageal reflux disease): Current visit: Yes Status: Chronic Continue Protonix 40 mg daily. (6) DVT prophylaxis: Current visit: Yes Status: Acute Subcutaneous Lovenox. (7) Discharge planning issues: Current visit: Yes Status: Acute She is a DNR/DNI. This case was discussed with Dr. Parikh who is in agreement. Subjective Interval history since last seen: Mrs. Myers reports feeling better again today. She has been ambulating in the halls, she continues to have some shortness of breath with activity, none at rest. She is occasionally wheezy. Her cough is improving, she is producing less sputum. The sputum is thin and slightly yellow today. She continues to have tachycardia, she does not feel like her heart is racing. She is eating and drinking and tolerating her diet, no nausea, vomiting or diarrhea. She denies dysuria or hematuria. Her bowels are more loose today. She noticed some RLE edema after her leg was dependent today. Exam Narrative Exam Narrative: General: She is sitting up in bed, she is awake and alert, no acute distress, she is speaking complete sentences with no shortness of breath. HEENT: Normocephalic, atraumatic, pupils equal and round, mucous membranes moist. Neck: Supple, no JVD. Respiratory: Respirations even and unlabored, rales to left lower lobe, no wheezing. No cough during exam. Cardiovascular: Heart rate sounds regular, tachycardic. Gastrointestinal: Abdomen soft, nontender on palpation, normoactive bowel sounds, nondistended. Extremities: No clubbing, cyanosis or edema. Pedal pulses palpable bilaterally. Objective Objective Clinical Data: Abnormal lab results 01/14/19 01/14/19 Range/Units 06:30 06:30 WBC 10.99 H (4.4-10.8) k/cumm RBC 3.85 L (4.00-5.20) m/cumm Hgb 11.0 L (12.0-15.5) g/dL MCHC 30.5 L (32.0-36.0) g/dL Plt Count 516 H (130-400) x1000/uL Absolute Neutrophils 9.92 H (1.2-6.7) k/cumm Absolute Lymphocytes 0.44 L (1.2-3.4) k/cumm Carbon Dioxide 32.4 H (21.0-32.0) mmol/L Glucose 147 H (70-100) mg/dL Vital Signs Temperature 36.3 C L 01/14/19 16:52 Temperature Source Tympanic 01/14/19 16:52 Pulse 120 H 01/14/19 17:03 Pulse Rhythm Regular 01/14/19 07:35 Pulse 121 H 01/12/19 12:20 Respiratory Rate 19 01/14/19 16:52 Respiratory Effort Non-Labored 01/14/19 07:35 Respiratory Depth Normal 01/14/19 07:35 Respiratory Pattern Normal 01/14/19 07:35 Blood Pressure 146/79 H 01/14/19 16:52 Blood Pressure Mean 76 01/12/19 12:15 Blood Pressure Position Sitting 01/12/19 08:30 Pulse Oximetry 93 L 01/14/19 16:52 Oxygen Delivery Method Room Air 01/14/19 16:52 Oxygen Flow Rate 0 01/14/19 16:52 Pain Level 0 01/14/19 11:35 Comment 01/13/19 07:10 Intake & Output 01/13/19 01/14/19 01/14/19 23:59 11:59 23:59 Intake Total 3327.167 / 5180.000 1390 / 1390 Output Total 700 / 700 900 / 900 Balance 2627.167 / 4480.000 490 / 490 Intake: IV 2037.167 / 3650.000 30 / 30 Oral 1290 / 1530 1360 / 1360 Output: Urine 700 / 700 900 / 900 Other: Urine Color Yellow Yellow Urine Appearance Clear Clear Urine Odor None Comment Void x1 in the bedside commode. Voiding Methods Bedside Commode Bedside Commode Laboratory Results WBC 10.99 k/cumm (4.4-10.8) H 01/14/19 06:30 RBC 3.85 m/cumm (4.00-5.20) L 01/14/19 06:30 Hgb 11.0 g/dL (12.0-15.5) L 01/14/19 06:30 Hct 36.1 % (36.0-46.0) 01/14/19 06:30 MCV 93.8 fL (80-95) 01/14/19 06:30 MCH 28.6 pg (27.0-33.0) 01/14/19 06:30 MCHC 30.5 g/dL (32.0-36.0) L 01/14/19 06:30 RDW 13.7 % (11.7-14.6) 01/14/19 06:30 Plt Count 516 x1000/uL (130-400) H 01/14/19 06:30 MPV 9.3 fL (8.0-11.0) 01/14/19 06:30 Immature Gran % 0.6 01/14/19 06:30 Neutrophils % 90.3 01/14/19 06:30 Lymphocytes % 4.0 01/14/19 06:30 Monocytes % 5.0 01/14/19 06:30 Eosinophils % 0.0 01/14/19 06:30 Basophils % 0.1 01/14/19 06:30 Absolute Neutrophils 9.92 k/cumm (1.2-6.7) H 01/14/19 06:30 Absolute Lymphocytes 0.44 k/cumm (1.2-3.4) L 01/14/19 06:30 Absolute Monocytes 0.55 k/cumm (0.11-0.7) 01/14/19 06:30 Absolute Eosinophils 0.00 k/cumm (0.0-0.7) 01/14/19 06:30 Absolute Basophils 0.01 k/cumm (0.0-0.2) 01/14/19 06:30 Differential Comment Diff reviewed 01/12/19 09:05 RBC Morphology Normal 01/12/19 09:05 PT 10.2 sec (9.3-11.0) 01/12/19 09:05 INR 1.0 (0.9-1.1) 01/12/19 09:05 APTT 28.9 sec (21.0-31.4) 01/12/19 09:05 VBG pH 7.37 (7.32-7.43) 01/12/19 09:05 VBG pCO2 52 mm/Hg (34-47) H 01/12/19 09:05 VBG pO2 35 mm/Hg (28-44) 01/12/19 09:05 VBG HCO3 30 mmol/L (22-28) H 01/12/19 09:05 VBG Total CO2 28 mmol/L (22-29) 01/12/19 09:05 VBG O2 Saturation 64 % (70-80) L 01/12/19 09:05 VBG Base Excess 4.6 mmol/L (-3-3) H 01/12/19 09:05 Sodium 137 mmol/L (136-145) 01/14/19 06:30 Potassium 4.1 mmol/L (3.5-5.1) 01/14/19 06:30 Chloride 99 mmol/L (98-107) 01/14/19 06:30 Carbon Dioxide 32.4 mmol/L (21.0-32.0) H 01/14/19 06:30 Anion Gap 5.6 mmol/L (3-11) 01/14/19 06:30 BUN 8 mg/dL (7-18) 01/14/19 06:30 Creatinine 0.87 mg/dL (0.55-1.02) 01/14/19 06:30 Estimated GFR/1.73 m2 >= 60.00 (mL/min/1.73m2) 01/14/19 06:30 Glucose 147 mg/dL (70-100) H 01/14/19 06:30 Lactate 1.0 mmol/l (0.6-1.4) 01/12/19 09:05 Calcium 8.7 mg/dL (8.5-10.1) 01/14/19 06:30 Magnesium 2.4 mg/dL (1.8-2.4) 01/14/19 06:30 Total Bilirubin 0.5 mg/dL (0.2-1.0) 01/12/19 09:05 AST 12 U/L (15-37) L 01/12/19 09:05 ALT 19 U/L (12-78) 01/12/19 09:05 Alkaline Phosphatase 115 U/L (46-116) 01/12/19 09:05 Troponin I < 0.02 ng/mL (0.00-0.06) 01/12/19 09:05 NT-Pro-B Natriuret Pep 391 pg/mL (-299) H 01/12/19 08:37 Total Protein 7.7 g/dL (6.4-8.2) 01/12/19 09:05 Albumin 3.0 g/dL (3.4-5.0) L 01/12/19 09:05 TSH 2.43 uIU/mL (0.358-3.74) 01/12/19 09:05
--- NOTE | 2019-01-14 18:37 | PT.INTREAT ---
Date of service: 01/14/19 Time of Service: 10:39 PT Notes Inpatient Physical Therapy Treatment Note [facility] Date: 01/14/2019 Precautions: Fall. Standard. Low endurance, needs frequent rests. SUBJECTIVE: Patient was seen sitting at edge of bed. She is agreeable to a PT treatment. She states she feels a lot better today. She reports that her sputum has started to clear up now with just little specks of yellow. OBJECTIVE: 1 L of oxygen per minute via NC. IV still in the right UE. PAIN: 0/10 BED MOBILITY/TRANSFERS Rolling independent Supine to sit independent Sit to supine independent Sit to stand independent Stand to sit independent Bed to chair independent Chair to bed independent GAIT: Patient tolerated level surface ambulation both in the morning and in the afternoon up to 205 feet with 5 standing rests and pursed lip breathing in order to maintain saturation levels. Patient demonstrates better ability at monitoring symptoms with saturation levels and doing activity pacing, energy conservation, and correct breathing techniques. In the morning patient was holding onto IV pole requiring only supervision assist from this therapist. The afternoon patient did not need to use any assistive device with supervision assist from this PT. both sessions patient's oxygen saturation ranged from 84% to 92% on 1 L of oxygen per minute. No complaints of dizziness or lightheadedness been received. Patient denied chest pain or leg pain throughout activity. THEREX: In the morning, patient completed sit to stand from edge of bed x10 and heel raises with arms across across chest for both exercises. Patient was instructed to coordinate deep breathing exercises with said activities with oxygen saturation ranging from 86-94% on room air. ASSESSMENT: Patient demonstrates continued increase in activity tolerance and decreased need for oxygen supplementation. She demonstrates good safety awareness and good ability to monitor self for symptoms of dyspnea and is able to pace self accordingly pursed lip breathing technique. PLAN: Patient may be discontinued from skilled PT services on 01/15/2019 now at highest functional level. No equipment needs at this time. Patient refused recommendations for home health PT services to assess for energy conservation techniques at home. TREATMENT CODE/TIME: Morning session 36795 25 minutes, [id number] 10 minutes, beginning at 10:39 AM. Afternoon session [id number] 25 minutes beginning at 14:53 PM.
--- NOTE | 2019-01-14 18:52 | PTTR_ITS ---
Date of service: 01/14/19 Time of Service: 10:39 PT Notes Inpatient Physical Therapy Treatment Note [facility] Date: 01/14/2019 Precautions: Fall. Standard. Low endurance, needs frequent rests. SUBJECTIVE: Patient was seen sitting at edge of bed. She is agreeable to a PT treatment. She states she feels a lot better today. She reports that her sputum has started to clear up now with just little specks of yellow. OBJECTIVE: 1 L of oxygen per minute via NC. IV still in the right UE. PAIN: 0/10 BED MOBILITY/TRANSFERS Rolling independent Supine to sit independent Sit to supine independent Sit to stand independent Stand to sit independent Bed to chair independent Chair to bed independent GAIT: Patient tolerated level surface ambulation both in the morning and in the afternoon up to 205 feet with 5 standing rests and pursed lip breathing in order to maintain saturation levels. Patient demonstrates better ability at monitoring symptoms with saturation levels and doing activity pacing, energy conservation, and correct breathing techniques. In the morning patient was holding onto IV pole requiring only supervision assist from this therapist. The afternoon patient did not need to use any assistive device with supervision assist from this PT. both sessions patient's oxygen saturation ranged from 84% to 92% on 1 L of oxygen per minute. No complaints of dizziness or lightheadedness been received. Patient denied chest pain or leg pain throughout activity. THEREX: In the morning, patient completed sit to stand from edge of bed x10 and heel raises with arms across across chest for both exercises. Patient was instructed to coordinate deep breathing exercises with said activities with oxygen saturation ranging from 86-94% on room air. ASSESSMENT: Patient demonstrates continued increase in activity tolerance and decreased need for oxygen supplementation. She demonstrates good safety awareness and good ability to monitor self for symptoms of dyspnea and is able to pace self accordingly pursed lip breathing technique. PLAN: Patient may be discontinued from skilled PT services on 01/15/2019 now at highest functional level. No equipment needs at this time. Patient refused recommendations for home health PT services to assess for energy conservation techniques at home. TREATMENT CODE/TIME: Morning session 39781 25 minutes, [id number] 10 minutes, beginning at 10:39 AM. Afternoon session [id number] 25 minutes beginning at 14:53 PM.
[2019-01-14] MEDS: Lactobacillus Acidophilus CAP 1 CAP PO (19:27)
[2019-01-14] MEDS: Acetaminophen 325 MG TAB PO (23:52)
[2019-01-15] VITALS (13 sets, daily range): BP systolic 135–165; BP diastolic 54–90; PULSE 92–140; RESP 20–24; TEMP 36.2–36.9; O2SAT 90–94
[2019-01-15] MEDS: methylPREDNISolone SUCC 125 MG VIAL 60 MG IVP (03:38)
[2019-01-15 07:22] LABS: Abs Immature Grans 0.19 k/cumm (0.0-0.09); Absolute Basophil Count 0.01 k/cumm (0.0-0.2); Absolute Lymphocyte Count 0.41 k/cumm (1.2-3.4); Absolute Neutrophil Count 9.31 k/cumm (1.2-6.7); Basophils % 0.1; HCT 37.7 % (36.0-46.0); HGB 11.5 g/dL (12.0-15.5); Immature Grans % 1.8; Lymphocytes % 3.9; Mean Corp. HGB Concentration 30.5 g/dL (32.0-36.0); Mean Corpuscular Hemoglobin 28.5 pg (27.0-33.0); Mean Corpuscular Volume 93.3 fL (80-95); Mean Platelet Volume 9.2 fL (8.0-11.0); Monocytes % 6.6; Neutrophils % 87.6; Platelet Count 589 x1000/uL (130-400); RBC 4.04 m/cumm (4.00-5.20); RBC Distribution Width 13.7 % (11.7-14.6); White Blood Cell Count 10.62 k/cumm (4.4-10.8)
[2019-01-15 07:26] LABS: Anion Gap 7.5 mmol/L (3-11); BUN 15 mg/dL (7-18); CO2 31.5 mmol/L (21.0-32.0); CREATININE 0.82 mg/dL (0.55-1.02); Calcium 8.9 mg/dL (8.5-10.1); Chloride 97 mmol/L (98-107); Glucose 114 mg/dL (70-100); Magnesium 2.1 mg/dL (1.8-2.4); Potassium 4.2 mmol/L (3.5-5.1); Sodium 136 mmol/L (136-145)
--- NOTE | 2019-01-15 07:47 | PDOC.CMPRO ---
- If Service Date Differs Date of service: 01/15/19 Time of Service: 07:47 Care Management Progress Note S/O:Jackie was sitting up in bed during CM visit. She states she is continuing to improve and feels 120% better than when she came to the hospital. She discussed the fact that although her oxygen saturation level dropped during ambulation on room air, she is clear that she does not want home oxygen. She insists I will be fine when I go home. She is a litttle concerned about her tachycardia and her medications are being adjusted to help with that. A:Jackie is a 68 year old woman admitted with pneumonia and COPD exacerbation. P: Jackie is currently receiving oxygen, IV antibiotics and respiratory support. She will return home at discharge with no services, unless she needs home oxygen. CM will continue to provide support to patient, family, care team and ongoing discharge planning. cc:
[2019-01-15] MEDS: Pantoprazole 40 MG TABCR PO (08:27)
[2019-01-15] MEDS: Lactobacillus Acidophilus CAP 1 CAP PO ×3 (08:27→19:13)
[2019-01-15] MEDS: Magnesium Oxide 400 MG TAB 800 MG PO ×2 (08:28→19:13)
[2019-01-15] MEDS: amLODIPine 5 MG TAB PO (08:28)
[2019-01-15] MEDS: Montelukast 10 MG TAB PO (08:28)
[2019-01-15] MEDS: Furosemide 20 MG TAB PO (08:29)
[2019-01-15] MEDS: Benzonatate 100 MG CAP PO ×3 (08:30→19:13)
[2019-01-15] MEDS: guaiFENesin 600 MG TABCR PO ×2 (08:30→19:13)
[2019-01-15] MEDS: Normal Saline Flush 10 ML SYR IVP ×2 (10:07→12:06)
[2019-01-15] MEDS: cefTRIAXone 1 GM/50 ML BAG IVPB (10:07)
--- NOTE | 2019-01-15 11:50 | PGE_ITS ---
Date of Service Date of service: 01/15/19 Time of Service: 11:41 Assessment and Plan (1) CAP (community acquired pneumonia): Current visit: Yes Status: Acute Symptoms continue to improving. She remains afebrile, no leukocytosis. Blood cultures have yielded no growth at 72 hours, sputum culture grew normal naomy. Transition to oral antibiotics today(day #4). She is no longer req uiring supplemental oxygen. Transition to oral steroids today. She has been tachycardic, telemetry shows sinus tachycardia, Decrease PRN Xopenex dose. Continue to monitor. (2) COPD with acute exacerbation: Current visit: Yes Status: Acute As above. (3) Tachycardia: Current visit: Yes Status: Acute Heart rate has consistently been over 100 in the setting of COPD exacerbation with pneumonia. Telemetry showing sinus tachycardia. Decrease Xopenex nebulizer dose as above. Discontinue Symbicort inhaler. Add low-dose beta-gisell. Continue to monitor on telemetry. (4) HTN (hypertension): Current visit: Yes Status: Chronic Blood pressure slightly elevated. Continue home dose of amlodipine. Echocardiogram today revealed LVEF of 65-70% with diastolic dysfunction, left atrium mildly dilated, pulmonary systolic pressure elevated in the range of 40- 50 mmHg. Rales on respiratory exam, RLE edema, give Lasix IV 20 mg x1 dose and continue to monitor. (5) GERD (gastroesophageal reflux disease): Current visit: Yes Status: Chronic Continue Protonix 40 mg daily. (6) DVT prophylaxis: Current visit: Yes Status: Acute Subcutaneous Lovenox. (7) Discharge planning issues: Current visit: Yes Status: Acute She is a DNR/DNI. This case was discussed with Dr. Parikh who is in agreement. Subjective Interval history since last seen: Jackie is feeling better again today. She has been ambulating in the halls. She continues to have some shortness of breath with activity, however, she reports dyspnea on exertion at baseline related to COPD. She has no shortness of breath at rest. She feels wheezy occasionally. She continues to cough, her cough is becoming less frequent, her sputum is more thin and clear. She has been monitored on telemetry, she continues to have tachycardia. She is eating and drinking tolerating her diet with no nausea or vomiting. She had some loose stools yesterday, she is now taking probiotics and is no longer having loose stools. She denies dysuria or hematuria. She reports right lower extremity edema again today, she feels it was dependent, it has improved from yesterday by her account. Exam Narrative Exam Narrative: General: She is walking around the room, doing exercises, she is awake and alert, no acute distress, she is speaking complete sentences with no shortness of breath. HEENT: Normocephalic, atraumatic, pupils equal and round, mucous membranes moist. Neck: Supple, no JVD. Respiratory: Respirations even and unlabored, rales to left lower lobe, no wheezing. No cough during exam. Cardiovascular: Heart rate sounds regular, tachycardic. Gastrointestinal: Abdomen soft, nontender on palpation, normoactive bowel sounds, nondistended. Extremities: +1 pitting edema to her RLE- no calf swelling, warmth or tenderness. No clubbing or cyanosis. Pedal pulses palpable bilaterally. Objective Objective Clinical Data: Abnormal lab results 01/15/19 01/15/19 Range/Units 06:55 06:55 Hgb 11.5 L (12.0-15.5) g/dL MCHC 30.5 L (32.0-36.0) g/dL Plt Count 589 H (130-400) x1000/uL Absolute Neutrophils 9.31 H (1.2-6.7) k/cumm Absolute Lymphocytes 0.41 L (1.2-3.4) k/cumm Chloride 97 L (98-107) mmol/L Glucose 114 H (70-100) mg/dL Vital Signs Temperature 36.9 C 01/15/19 07:20 Temperature Source Tympanic 01/15/19 07:20 Pulse 112 H 01/15/19 07:20 Pulse Rhythm Regular 01/15/19 07:30 Pulse 121 H 01/12/19 12:20 Respiratory Rate 20 01/15/19 07:20 Respiratory Effort Non-Labored 01/15/19 07:30 Respiratory Depth Normal 01/15/19 07:30 Respiratory Pattern Normal 01/15/19 07:30 Blood Pressure 165/90 H 01/15/19 07:20 Blood Pressure Mean 76 01/12/19 12:15 Blood Pressure Position Sitting 01/12/19 08:30 Pulse Oximetry 90 L 01/15/19 08:15 Oxygen Delivery Method Room Air 01/15/19 08:15 Oxygen Flow Rate 0 01/15/19 08:15 Pain Level 0 01/15/19 07:20 Comment 01/13/19 07:10 Intake & Output 01/14/19 01/14/19 01/15/19 11:59 23:59 11:59 Intake Total 1390 / 2170 780 / 2170 Output Total 900 / 900 1000 / 1000 Balance 490 / 1270 780 / 1270 -1000 / -1000 Intake: IV 30 / 330 300 / 330 Oral 1360 / 1840 480 / 1840 Output: Urine 900 / 900 1000 / 1000 Other: Urine Color Yellow Yellow Yellow Urine Appearance Clear Clear Clear Voiding Methods Bedside Commode Toilet Bedside Commode Laboratory Results WBC 10.62 k/cumm (4.4-10.8) 01/15/19 06:55 RBC 4.04 m/cumm (4.00-5.20) 01/15/19 06:55 Hgb 11.5 g/dL (12.0-15.5) L 01/15/19 06:55 Hct 37.7 % (36.0-46.0) 01/15/19 06:55 MCV 93.3 fL (80-95) 01/15/19 06:55 MCH 28.5 pg (27.0-33.0) 01/15/19 06:55 MCHC 30.5 g/dL (32.0-36.0) L 01/15/19 06:55 RDW 13.7 % (11.7-14.6) 01/15/19 06:55 Plt Count 589 x1000/uL (130-400) H 01/15/19 06:55 MPV 9.2 fL (8.0-11.0) 01/15/19 06:55 Immature Gran % 1.8 01/15/19 06:55 Neutrophils % 87.6 01/15/19 06:55 Lymphocytes % 3.9 01/15/19 06:55 Monocytes % 6.6 01/15/19 06:55 Eosinophils % 0.0 01/15/19 06:55 Basophils % 0.1 01/15/19 06:55 Absolute Neutrophils 9.31 k/cumm (1.2-6.7) H 01/15/19 06:55 Absolute Lymphocytes 0.41 k/cumm (1.2-3.4) L 01/15/19 06:55 Absolute Monocytes 0.70 k/cumm (0.11-0.7) 01/15/19 06:55 Absolute Eosinophils 0.00 k/cumm (0.0-0.7) 01/15/19 06:55 Absolute Basophils 0.01 k/cumm (0.0-0.2) 01/15/19 06:55 Differential Comment Diff reviewed 01/12/19 09:05 RBC Morphology Normal 01/12/19 09:05 PT 10.2 sec (9.3-11.0) 01/12/19 09:05 INR 1.0 (0.9-1.1) 01/12/19 09:05 APTT 28.9 sec (21.0-31.4) 01/12/19 09:05 VBG pH 7.37 (7.32-7.43) 01/12/19 09:05 VBG pCO2 52 mm/Hg (34-47) H 01/12/19 09:05 VBG pO2 35 mm/Hg (28-44) 01/12/19 09:05 VBG HCO3 30 mmol/L (22-28) H 01/12/19 09:05 VBG Total CO2 28 mmol/L (22-29) 01/12/19 09:05 VBG O2 Saturation 64 % (70-80) L 01/12/19 09:05 VBG Base Excess 4.6 mmol/L (-3-3) H 01/12/19 09:05 Sodium 136 mmol/L (136-145) 01/15/19 06:55 Potassium 4.2 mmol/L (3.5-5.1) 01/15/19 06:55 Chloride 97 mmol/L (98-107) L 01/15/19 06:55 Carbon Dioxide 31.5 mmol/L (21.0-32.0) 01/15/19 06:55 Anion Gap 7.5 mmol/L (3-11) 01/15/19 06:55 BUN 15 mg/dL (7-18) D 01/15/19 06:55 Creatinine 0.82 mg/dL (0.55-1.02) 01/15/19 06:55 Estimated GFR/1.73 m2 >= 60.00 (mL/min/1.73m2) 01/15/19 06:55 Glucose 114 mg/dL (70-100) H 01/15/19 06:55 Lactate 1.0 mmol/l (0.6-1.4) 01/12/19 09:05 Calcium 8.9 mg/dL (8.5-10.1) 01/15/19 06:55 Magnesium 2.1 mg/dL (1.8-2.4) 01/15/19 06:55 Total Bilirubin 0.5 mg/dL (0.2-1.0) 01/12/19 09:05 AST 12 U/L (15-37) L 01/12/19 09:05 ALT 19 U/L (12-78) 01/12/19 09:05 Alkaline Phosphatase 115 U/L (46-116) 01/12/19 09:05 Troponin I < 0.02 ng/mL (0.00-0.06) 01/12/19 09:05 NT-Pro-B Natriuret Pep 391 pg/mL (-299) H 01/12/19 08:37 Total Protein 7.7 g/dL (6.4-8.2) 01/12/19 09:05 Albumin 3.0 g/dL (3.4-5.0) L 01/12/19 09:05 TSH 2.43 uIU/mL (0.358-3.74) 01/12/19 09:05
[2019-01-15] MEDS: Furosemide 20 MG/2 ML VIAL IVP (12:06)
[2019-01-15] MEDS: Metoprolol 12.5 MG TAB PO ×2 (12:08→19:13)
[2019-01-15] MEDS: Azithromycin 250 MG TAB 500 MG PO (12:08)
[2019-01-15] MEDS: Enoxaparin 40 MG/0.4 ML SYR SC (12:09)
--- NOTE | 2019-01-15 14:41 | PT.INDS ---
Date of service: 01/15/19 Time of Service: 09:10 PT Notes Date: 01/15/2019 Referring Doctor: Bianca Prescott NP PT Orders: PT CONSULT: Chronic disease deconditioning Precautions: Fall. Standard. Low endurance, needs frequent rests. Treatment Dates: 01/12/19 - 01/15/19 Patient Profile/Admitting Diagnosis: Patient is a 68-year-old female who presented to the ED 01/12/19 with chief complaints of cough with yellow, green and brown sputum as well as shortness of breath. Patient was found to be tachypneic, tachycardic and mildly hypoxemic requiring 2 L of oxygen. Patient was diagnosed with community-acquired pneumonia and with acute on chronic obstructive pulmonary disease and is on DVT prophylaxis. Orders for physical therapy received, and patient has participated in PT intervention 1-2 times per day, for a total of 6 sessions over the past 4 days. 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 She is independent with all aspects of ADLs with no assistive ambulatory device nor adaptive equipment. She still drives. She states she has 1 step to enter the house who he shares with her son and grandson. Current Functional Limitations: Patient has poor activity tolerance which has limited her ability to participate in all aspects of ADLs Equipment Owned/DME: None Subjective: Patient resting in bed with no lines. She states that she has been off oxygen all morning, at nursing's request. She states that she feels as though her breathing is at baseline. She does have chronic back pain, and although she does not do any specific exercises for this, she reports that she tends to feel better during summer months when she is moving more. She typically splits her own wood, walks, etc. Objective: General Observation: No lines Mental Status: Alert and oriented x3 Pain: 0/10 at rest ROM: Right Upper Extremity: Shoulder Flexion WFL. Shoulder abduction WFL. Elbow flexion WFL. Wrist flexion WFL. Functional opening and closing of hand WFL. Left Upper Extremity: Shoulder Flexion WFL. Shoulder abduction WFL. Elbow flexion WFL. Wrist flexion WFL. Functional opening and closing of hand WFL. Right Lower Extremity: Hip flexion WFL. Hip abduction WFL. Knee flexion WFL. Ankle dorsiflexion WFL. Ankle plantarflexion WFL. Left Lower Extremity: Hip flexion WFL. Hip abduction WFL. Knee flexion WFL. Ankle dorsiflexion WFL. Ankle plantarflexion WFL. STRENGTH: Right Upper Extremity: Shoulder flexors 5/5. Shoulder abductors 5/5. Elbow flexors 5/5. Elbow extensors 5/5. Process Control Tech strong. Left Upper Extremity: Shoulder flexors 5/5. Shoulder abductors 5/5. Elbow flexors 5/5. Elbow extensors 5/5. Process Control Tech strong. Right Lower Extremity: Hip flexors 4+/5. Hip abductors 4/5. Knee flexors 4/5. Knee extensors 4+/5. Ankle dorsiflexors 5/5. Ankle plantarflexors 5/5. Right Lower Extremity:Hip flexors 4+/5. Hip abductors 4/5. Knee flexors 4/5. Knee extensors 4+/5. Ankle dorsiflexors 5/5. Ankle plantarflexors 5/5. Sensation: Intact to B UE LE as to pain and pressure. BED MOBILITY LEVELS/TRANSFERS Rolling: independent Supine to sit: independent Sit to supine: independent Sit to stand: independent Stand to sit: independent Bed to chair: independent Chair to bed: independent Gait: Patient ambulates 80 feet with no assistive device, supervision only. She requires cues for breathing throughout. She begins at SaO2 of 90% on room air, although desaturates to 81% with ambulation. With rest and pursed lip breathing, she requires 2 minutes to resect rate to 90%. During ambulation, she demonstrates forward flexed trunk position, and requires rest period with upper extremity support to wall. She has demonstrated safety with ambulation up to 300' with 2LPM (01/13/19). Balance: Static Sitting: Good Dynamic Sitting: Good Static Standing: Good Dynamic Standing: Good Special Tests: Mobility Limitations Standardized Measure [facility]-PAC 6 clicks basic Mobility Inpatient Short Form: Raw Score: 24 CMS score: 0% deficit Treatment: Today's session consisted of reevaluation, followed by instruction in a progress therapeutic exercise program. Patient completed supine core stabilization and trunk range of motion exercises, with good alleviation of symptoms. She also received lower extremity stretching, and was instructed in self stretching activities. These can be found noted on flowsheet. Assessment: Patient is a 68 year old female referred to physical therapy services with the diagnosis of progression of community-acquired pneumonia acute on chronic COPD. She has made significant improvements in activity tolerance and mobility, although continues to significantly desaturate with ambulation on room air. Patient is adamant about returning home without supplemental oxygen. She will benefit from continued short distance ambulation, with focus on breathing techniques, as well as initiation of a home exercise program to address her chronic back pain. At this point she is demonstrating safe short distance ambulation and is, I suspect, at baseline level of function. She has been instructed to continue with her home program independently in her room, and is appropriate for discharge from PT intervention in an acute care setting. We did discuss the option of outpatient PT for general conditioning and to address her chronic low back pain, although patient defers on this at this time. Goals: Goals X1 week 1. Supine-Sit independent (MET) 2. Sit-Supine independent(MET) 3. Sit-Stand independent(MET) 4. Stand-Sit independent(MET) 5. Bed-Chair independent(MET) 6. Chair-Bed independent(MET) 7. Independent gait on level surface without use of assistive device for at least 300 feet without report of pain nor dyspnea(MET) 8. Independent stair negotiation while holding onto bilateral rails for at least 3 steps without report of pain nor dyspnea (not assessed today) 9. Independent with home exercise program (MET) 10. Good static and dynamic standing balance/tolerance(MET) Plan of Care/Treatment Plan: Discharge from physical therapy in acute care setting DISCHARGE RECOMMENDATIONS: Recommendation for outpatient physical therapy, however patient is not interested in pursuing that at this time. TREATMENT CODE/TIME: [id number], [id number] (9:10 AM?9:40 AM) Chery Linder, PT, DPT [facility]
--- NOTE | 2019-01-15 14:51 | INDS_ITS ---
Date of service: 01/15/19 Time of Service: 09:10 PT Notes Date: 01/15/2019 Referring Doctor: Bianca Prescott NP PT Orders: PT CONSULT: Chronic disease deconditioning Precautions: Fall. Standard. Low endurance, needs frequent rests. Treatment Dates: 01/12/19 - 01/15/19 Patient Profile/Admitting Diagnosis: Patient is a 68-year-old female who presented to the ED 01/12/19 with chief complaints of cough with yellow, green and brown sputum as well as shortness of breath. Patient was found to be tachypneic, tachycardic and mildly hypoxemic requiring 2 L of oxygen. Patient was diagnosed with community-acquired pneumonia and with acute on chronic obstructive pulmonary disease and is on DVT prophylaxis. Orders for physical therapy received, and patient has participated in PT intervention 1-2 times per day, for a total of 6 sessions over the past 4 days. 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 She is independent with all aspects of ADLs with no assistive ambulatory device nor adaptive equipment. She still drives. She states she has 1 step to enter the house who he shares with her son and grands on. Current Functional Limitations: Patient has poor activity tolerance which has limited her ability to participate in all aspects of ADLs Equipment Owned/DME: None Subjective: Patient resting in bed with no lines. She states that she has been off oxygen all morning, at nursing's request. She states that she feels as though her breathing is at baseline. She does have chronic back pain, and although she does not do any specific exercises for this, she reports that she tends to feel better during summer months when she is moving more. She typically splits her own wood, walks, etc. Objective: General Observation: No lines Mental Status: Alert and oriented x3 Pain: 0/10 at rest ROM: Right Upper Extremity: Shoulder Flexion WFL. Shoulder abduction WFL. Elbow flexion WFL. Wrist flexion WFL. Functional opening and closing of hand WFL. Left Upper Extremity: Shoulder Flexion WFL. Shoulder abduction WFL. Elbow flexion WFL. Wrist flexion WFL. Functional opening and closing of hand WFL. Right Lower Extremity: Hip flexion WFL. Hip abduction WFL. Knee flexion WFL. Ankle dorsiflexion WFL. Ankle plantarflexion WFL. Left Lower Extremity: Hip flexion WFL. Hip abduction WFL. Knee flexion WFL. Ankle dorsiflexion WFL. Ankle plantarflexion WFL. STRENGTH: Right Upper Extremity: Shoulder flexors 5/5. Shoulder abductors 5/5. Elbow flexors 5/5. Elbow extensors 5/5. Division Merchandise Manager strong. Left Upper Extremity: Shoulder flexors 5/5. Shoulder abductors 5/5. Elbow flexors 5/5. Elbow extensors 5/5. Division Merchandise Manager strong. Right Lower Extremity: Hip flexors 4+/5. Hip abductors 4/5. Knee flexors 4/5. Knee extensors 4+/5. Ankle dorsiflexors 5/5. Ankle plantarflexors 5/5. Right Lower Extremity:Hip flexors 4+/5. Hip abductors 4/5. Knee flexors 4/5. Knee extensors 4+/5. Ankle dorsiflexors 5/5. Ankle plantarflexors 5/5. Sensation: Intact to B UE LE as to pain and pressure. BED MOBILITY LEVELS/TRANSFERS Rolling: independent Supine to sit: independent Sit to supine: independent Sit to stand: independent Stand to sit: independent Bed to chair: independent Chair to bed: independent Gait: Patient ambulates 80 feet with no assistive device, supervision only. She requires cues for breathing throughout. She begins at SaO2 of 90% on room air, although desaturates to 81% with ambulation. With rest and pursed lip breathing, she requires 2 minutes to resect rate to 90%. During ambulation, she demonstrates forward flexed trunk position, and requires rest period with upper extremity support to wall. She has demonstrated safety with ambulation up to 300' with 2LPM (01/13/19). Balance: Static Sitting: Good Dynamic Sitting: Good Static Standing: Good Dynamic Standing: Good Special Tests: Mobility Limitations Standardized Measure [facility] AM-PAC 6 clicks basic Mobility Inpatient Short Form: Raw Score: 24 CMS score: 0% deficit Treatment: Today's session consisted of reevaluation, followed by instruction in a progress therapeutic exercise program. Patient completed supine core stab ilization and trunk range of motion exercises, with good alleviation of symptoms. She also received lower extremity stretching, and was instructed in self stretching activities. These can be found noted on flowsheet. Assessment: Patient is a 68 year old female referred to physical therapy services with the diagnosis of progression of community-acquired pneumonia acute on chronic COPD. She has made significant improvements in activity tolerance and mobility, although continues to significantly desaturate with ambulation on room air. Patient is adamant about returning home without supplemental oxygen. She will benefit from continued short distance ambulation, with focus on breathing techniques, as well as initiation of a home exercise program to address her chronic back pain. At this point she is demonstrating safe short distance ambulation and is, I suspect, at baseline level of function. She has been instructed to continue with her home program independently in her room, and is appropriate for discharge from PT intervention in an acute care setting. We did discuss the option of outpatient PT for general conditioning and to address her chronic low back pain, although patient defers on this at this time. Goals: Goals X1 week 1. Supine-Sit independent (MET) 2. Sit-Supine independent(MET) 3. Sit-Stand independent(MET) 4. Stand-Sit independent(MET) 5. Bed-Chair independent(MET) 6. Chair-Bed independent(MET) 7. Independent gait on level surface without use of assistive device for at least 300 feet without report of pain nor dyspnea(MET) 8. Independent stair negotiation while holding onto bilateral rails for at least 3 steps without report of pain nor dyspnea (not assessed today) 9. Independent with home exercise program (MET) 10. Good static and dynamic standing balance/tolerance(MET) Plan of Care/Treatment Plan: Discharge from physical therapy in acute care setting DISCHARGE RECOMMENDATIONS: Recommendation for outpatient physical therapy, however patient is not interested in pursuing that at this time. TREATMENT CODE/TIME: 30035, 02426 (9:10 AM?9:40 AM) Chery Linder, PT, DPT [facility]
[2019-01-15] MEDS: predniSONE 20 MG TAB 40 MG PO (19:13)
[2019-01-15] MEDS: Budesonide/Formoterol 160/4.5 6 GM 60 PUFF INH IH (19:13)
[2019-01-15] MEDS: Cefpodoxime 200 MG TAB PO (19:13)
[2019-01-15] MEDS: Acetaminophen 325 MG TAB PO (20:42)
[2019-01-16 03:17] VITALS: BP 141/85; PULSE 96; RESP 18; TEMP 36; O2SAT 90
[2019-01-16] MEDS: Pantoprazole 40 MG TABCR PO (06:37)
[2019-01-16 07:00] VITALS: PULSE 93
[2019-01-16] MEDS: Acetaminophen 325 MG TAB PO (07:06)
[2019-01-16 07:10] LABS: Mean Corp. HGB Concentration 31.6 g/dL (32.0-36.0); Mean Corpuscular Hemoglobin 29.1 pg (27.0-33.0); RBC 4.13 m/cumm (4.00-5.20); RBC Distribution Width 13.4 % (11.7-14.6); White Blood Cell Count 10.83 k/cumm (4.4-10.8)
[2019-01-16 07:22] LABS: Anion Gap 6.5 mmol/L (3-11); BUN 21 mg/dL (7-18); CO2 33.5 mmol/L (21.0-32.0); CREATININE 0.88 mg/dL (0.55-1.02); Calcium 8.9 mg/dL (8.5-10.1); Chloride 95 mmol/L (98-107); Glucose 119 mg/dL (70-100); Magnesium 2.1 mg/dL (1.8-2.4); Potassium 4.6 mmol/L (3.5-5.1); Sodium 135 mmol/L (136-145)
[2019-01-16 07:40] VITALS: O2SAT 93
[2019-01-16] MEDS: Budesonide/Formoterol 160/4.5 6 GM 60 PUFF INH IH (07:41)
[2019-01-16 07:42] VITALS: BP 147/86; PULSE 100; RESP 20; TEMP 36.8; O2SAT 93
[2019-01-16 08:02] LABS: Absolute Lymphocyte Count 0.87 k/cumm (1.2-3.4); Absolute Monocyte Count 0.97 k/cumm (0.11-0.7); Absolute Neutrophil Count 8.77 k/cumm (1.2-6.7); Atypical Lymphocytes % 1; Diff Comment Manual Differential; Platelet Count 599 x1000/uL (130-400)
[2019-01-16 08:03] LABS: Basophilic Stippling Present; Hypochromasia 1+; Polychromasia Present
[2019-01-16] MEDS: Montelukast 10 MG TAB PO (08:50)
[2019-01-16] MEDS: Metoprolol 12.5 MG TAB PO (08:50)
[2019-01-16] MEDS: Cefpodoxime 200 MG TAB PO (08:50)
[2019-01-16] MEDS: Lactobacillus Acidophilus CAP 1 CAP PO (08:51)
[2019-01-16] MEDS: predniSONE 20 MG TAB 40 MG PO (08:51)
[2019-01-16] MEDS: Azithromycin 250 MG TAB 500 MG PO (08:51)
[2019-01-16] MEDS: Benzonatate 100 MG CAP PO (08:51)
[2019-01-16] MEDS: guaiFENesin 600 MG TABCR PO (08:51)
[2019-01-16] MEDS: amLODIPine 5 MG TAB PO (08:51)
[2019-01-16] MEDS: Magnesium Oxide 400 MG TAB 800 MG PO (08:51)
[2019-01-16] MEDS: Furosemide 20 MG TAB PO (08:52)
[2019-01-16 09:40] VITALS: PULSE 114; PULSE 126; PULSE 99; RESP 24; O2SAT 86; O2SAT 90; O2SAT 94
--- NOTE | 2019-01-16 10:44 | PDOC.CMDIS ---
- If Service Date Differs Date of service: 01/16/19 Time of Service: 10:44 LACE Index Scoring Tool - Questions: Length of Stay (in days): 4 - 6 Acuity (Admit via E.D.?): Yes Comorbidities: Chronic Pulmonary Disease E.D. Visits: 1 - Answers: Total Score: 10 Risk of Readmission: High Risk Care Management Discharge Reason for Hospitalization: Community acquired pneumonia, COPD exacerbation Discharge Plan: Jackie will return home with no services. She will follow up with her PCP and the precribed plan of care. Patient/Family Education Needs: Discharge plan, limitations, follow up plan and Ask Me Three.
--- NOTE | 2019-01-16 11:54 | DSE_ITS ---
Date of service: 01/16/19 Time of Service: 11:53 DS: Diagnosis Discharge Diagnosis (1) CAP (community acquired pneumonia): Status: Acute (2) COPD with acute exacerbation: Status: Acute (3) Tachycardia: Status: Acute (4) HTN (hypertension): Status: Chronic (5) GERD (gastroesophageal reflux disease): Status: Chronic Discharge Plan Disposition Patient Disposition: HOME Condition: Improving Discharge Details Reason For Visit: CAP, COPD EXACERBATION Admit Date/Time: 01/12/19 11:42 Admit Provider: Fernando Parikh Attending Provider: Fernando Parikh Primary Care Provider: Yazmin Yañez Hospital Course Hospital Course: Mrs. Myers is a very pleasant 68 year old female with a past medical history significant for COPD, HTN, Migraines and GERD who presented to the ED on 01/12/19 with reports of worsening cough productive of yellow, green and brown sputum, increasing shortness of breath, fever and chills. In the ED, she was found to hypoxic with tachycardia and tachypnea. She had elevated white blood cell count with left shift and hypokalemia. Her initial chest x-ray was read as unchanged, however there was concern for infiltrate at the right lower cardiac border, concerning for potential community-acquired pneumonia. She was admitted to the med/surg floor for treatment of community acquired pneumonia and COPD exacerbation. She was given IV ceftriaxone and azithromycin, IV steroids, nebulizer treatments and antitussives. Her respiratory status slowly improved over the following days. She transitioned to oral antibiotics and prednisone the day prior to her discharge and continued to improve. She had an ambulatory pulse oximetry test on the day of discharge and did not qualify for home oxygen, her oxygen saturation dropped as low as 89% with ambulation. She has some shortness of breath with activity at baseline and feels that her breathing is back to her baseline. Her leukocytosis resolved, her potassium and magnesium improved with supplementatio n. She did have an elevated platelet count which may be reactive, however, she will be scheduled to have a repeat CBC in one week to reassess her platelet count. She was found to be tachycardic and placed on telemetry. She remained in sinus tachycardia. She had one episode of nonsustained SVT on 01/15 with ambulation. She remained tachycardic as her respiratory status improved and with decreasing steroids and nebulizer treatments. She was then placed on a low dose beta gisell with improvement in her heart rate to primarily the 90s. She will be discharged home on metoprolol with follow up scheduled with her PCP. The plan was for a trial off of symbicort inhaler (therapeutic substitution for advair) to assess whether this had an impact on her heart rate, however, she had extreme anxiety surrounding changing this, therefore, she would prefer discussing this with her PCP at her follow up appointment. She had an echocardiogram while she was in the hospital with showed an LVEF of 65-70%, no regional wall motion abnormalities, with findings consistent with diastolic dysfunction. Her left atrium was mildly dilated, she had increased pulmonary systolic pressure in the range of 40-50 mmHg. She will complete 2 more days of antibiotics to complete a full 7 day course. She will taper off of steroids over several days. She will continue metoprolol at the time of discharge. Home Meds and New Rx's Prescriptions: New azithromycin 250 mg Tablet 500 mg PO DAILY Qty: 2 RF: 0 benzonatate 100 mg Capsule 100 mg PO TID Qty: 9 RF: 0 cefpodoxime 200 mg Tablet 200 mg PO BID Qty: 5 RF: 0 pantoprazole 40 mg Tablet,Delayed Release (Dr/Ec) 40 mg PO DAILY@0730 Qty: 30 RF: 0 metoprolol tartrate 25 mg Tablet 25 mg PO BID Qty: 30 RF: 0 acidophilus-pectin, citrus 25 million cell -100 mg Tablet 1 cap PO TID Qty: 9 RF: 0 guaifenesin [Mucinex] 600 mg Tablet Extended Release 12hr 600 mg PO BID Qty: 6 RF: 0 prednisone 10 mg tablet 10 mg PO DAILY Qty: 34 RF: 0 Continued fluticasone propion-salmeterol [Advair Diskus] 1 EACH blister with device 1 puff Inhalation BID Qty: 3 RF: 4 albuterol sulfate 2.5 MG/3 ML solution for nebulization 1 amp Inhalation QID PRN Qty: 50 RF: 11 amlodipine 5 MG tablet 5 mg PO DAILY Qty: 90 RF: 4 omeprazole 20 MG capsule,delayed release(DR/EC) 20 mg PO DAILY Qty: 90 RF: 3 montelukast 10 MG tablet 10 mg PO DAILY Qty: 90 RF: 3 furosemide 20 MG tablet 20 mg PO QAM Qty: 90 RF: 4 COMBIVENT RESPIMAT INHAL SPRAY 4 GM AER.W.ADAP 1 puff Inhalation QID Qty: 3 RF: 4 guaifenesin [Mucinex] 600 mg Tablet Extended Release 12hr 600 mg PO BID PRNRF: 0 Discharge Instructions Instructions: Community Acquired Pneumonia (DC), Chronic Lung Disease and Infection Prevention (DC) Additional Instructions: Taper steroids as follows: take 4 tablets tonight, then 4 tablets in the morning x3 days, then decrease to 3 tablets daily for 3 days, then 2 tablets daily x3 days then decrease to 1 tablet daily x3 days. Take antibiotics until they are gone. Continue taking metoprolol for your heart rate, discuss this with your PCP at your follow up appointment. Stand Alone Forms: Nursing Discharge Form Referrals: Jordana Mann MD [ [facility] STAFF PHYSICIAN] - 01/21/19 3:00 pm Activity:: Activity as Tolerated Equipment/Supplies:: No Equipment Needed Diet:: Low Sodium Discharge Orders Discharge Orders: Discharge Order (Routine); Ordered 01/16/19 Ordered By: Marga Nassar Other Ambulatory Orders: Complete Blood Count No Diff (Routine) Timeframe: 1 Week Location: Determined by Patient Ordered By: Marga Nassar Exam Narrative Exam Narrative: General: Sitting up at the edge of the bed, she is awake and alert, no acute distress, she is speaking complete sentences with no shortness of breath. HEENT: Normocephalic, atraumatic, pupils equal and round, mucous membranes moist. Neck: Supple, no JVD. Respiratory: Respirations even and unlabored, lung sounds clear throughout, no rales or wheezing. No cough during exam. Cardiovascular: Heart rate sounds regular, rate in the 90s. Gastrointestinal: Abdomen soft, nontender on palpation, normoactive bowel sounds, nondistended. Extremities: trace edema to her RLE- no calf swelling, warmth or tenderness. No clubbing or cyanosis. Pedal pulses palpable bilaterally. DS: Data Vitals/I&O Vitals and I&O: Vital Signs Temperature 36.8 C 01/16/19 07:42 Temperature Source Skin 01/16/19 07:42 Pulse 100 H 01/16/19 07:42 Pulse Rhythm Regular 01/16/19 09:38 Pulse 121 H 01/12/19 12:20 Respiratory Rate 20 01/16/19 07:42 Respiratory Effort Non-Labored 01/16/19 09:38 Respiratory Depth Normal 01/16/19 09:38 Respiratory Pattern Normal 01/16/19 09:38 Blood Pressure 147/86 H 01/16/19 07:42 Blood Pressure Mean 76 01/12/19 12:15 Blood Pressure Position Sitting 01/12/19 08:30 Pulse Oximetry 93 L 01/16/19 07:42 Oxygen Delivery Method Room Air 01/16/19 07:42 Oxygen Flow Rate 0 01/16/19 07:42 Pain Level 0 01/15/19 11:15 Comment 01/13/19 07:10 Intake & Output 01/15/19 01/15/19 01/16/19 11:59 23:59 11:59 Intake Total 960 / 960 740 / 740 Output Total 1000 / 3750 2750 / 3750 1500 / 1500 Balance -1000 / -2790 -1790 / -2790 -760 / -760 Weight 76.7 kg Intake: IV Oral 960 / 960 720 / 720 Output: Urine 1000 / 3750 2750 / 3750 1500 / 1500 Other: Urine Color Yellow Yellow Yellow Urine Appearance Clear Clear Clear Urine Odor Normal Voiding Methods Bedside Commode Bedside Commode Bedside Commode Completed studies during hospitalization [Text1]: 01/12/19: PA AND LATERAL CHEST: 01/12/19 The heart is not enlarged. There appears to be changes of COPD and mild interstitial scarring. No focal consolidation seen. No pleural effusion seen. CONCLUSION: No evidence of acute disease. Date of study: 01/13/2019 Transthoracic Echocardiography M-mode, complete 2D, complete spectral Doppler, and color Doppler *STUDY CONCLUSIONS* Summary: 1. Left ventricle: The cavity size was normal. Wall thickness was normal. Systolic function was hyperdynamic. The estimated ejection fraction was 65-70%. There was no dynamic obstruction. Wall motion was normal; there were no regional wall motion abnormalities. Findings consistent with diastolic dysfunction. Doppler parameters are consistent with high ventricular filling pressure. 2. Left atrium: The atrium was mildly dilated. 3. Right ventricle: The cavity size was normal. Wall thickness was normal. Systolic function was hyperdynamic. 4. Pulmonary arteries: Pulmonary systolic pressure was increased, in the range of 40mm Hg to 50mm Hg. Labs on day of discharge: Labs from last 24 hours 01/16/19 01/16/19 06:53 06:53 WBC 10.83 H RBC 4.13 Hgb 12.0 Hct 38.0 MCV 92.0 MCH 29.1 MCHC 31.6 L RDW 13.4 Plt Count 599 H MPV 9.0 Immature Gran % See Differential Neutrophils % 81.0 Lymphocytes % 7.0 Atypical Lymphs % 1 Monocytes % 9.0 Eosinophils % 0.0 Basophils % 0.0 Metamyelocytes % 1.0 Myelocytes % 1.0 Absolute Neutrophils 8.77 H Absolute Lymphocytes 0.87 L Absolute Monocytes 0.97 H Absolute Eosinophils 0.00 Absolute Basophils 0.00 Differential Comment Manual differential RBC Morphology See below Polychromasia Present Hypochromasia 1+ Basophilic Stippling Present Sodium 135 L Potassium 4.6 Chloride 95 L Carbon Dioxide 33.5 H Anion Gap 6.5 BUN 21 H D Creatinine 0.88 Estimated GFR/1.73 m2 >= 60.00 Glucose 119 H Calcium 8.9 Magnesium 2.1 Preliminary micro results at discharge 01/12/19 09:05 Blood Culture - Preliminary Blood NO GROWTH 96 HOURS 01/12/19 09:45 Blood Culture - Preliminary Blood NO GROWTH 72 HOURS [facility] Medical History COPD (chronic obstructive pulmonary disease) (Chronic) GERD (gastroesophageal reflux disease) (Chronic) HTN (hypertension) (Chronic) Surgical History Endoscopic Carpal Tunnel release (03/31/13) Family History Mother Essential hypertension Hyperlipidemia Father Heart disease Neoplasm Sister No problems noted. Sister No problems noted. Brother No problems noted. Brother No problems noted. Grandfather Stroke Grandfather Heart disease Grandmother Heart disease Grandmother Stroke Son Diabetes Essential hypertension Daughter No problems noted. Social History Smoking/Tobacco Use Status: Former Tobacco Use Alcohol Intake: never Drug use: Never Do you feel safe at home: Yes Do you feel safe in your relationship?: Yes
== END 2019-01-16 14:25 | disposition home or self-care (01) | DRG 190 ==
LOC: ER 12:26 → MS 12:47
PROVIDERS: Nurse Practitioner Family; Admitting Provider Internal Medicine; Emergency Provider Student in an Organized Health Care Education/Training Program; Visit Provider Internal Medicine
DX: J44.1 Chronic obstructive pulmonary disease with (acute) exacerbation (principal); J18.9 Pneumonia, unspecified organism; I47.1 Supraventricular tachycardia; I50.30 Unspecified diastolic (congestive) heart failure; J44.0 Chronic obstructive pulmonary disease with (acute) lower respiratory infection; R00.0 Tachycardia, unspecified; R53.81 Other malaise; R60.0 Localized edema; E87.6 Hypokalemia; E83.42 Hypomagnesemia; I11.0 Hypertensive heart disease with heart failure; K21.9 Gastro-esophageal reflux disease without esophagitis; R09.02 Hypoxemia; I27.20 Pulmonary hypertension, unspecified; Z87.891 Personal history of nicotine dependence
CPT/HCPCS: 36415; 80048; 80053; 82805; 87040; 93005; 93306; 94640; 96361; 96365; 96367; 96375; 97110; 97162; 97530; 99223; 99232; 99239; 99285; J1650; 71046; 83605; 83735; 83880; 84443; 84484; 85025; 85610; 85730; 87070; 87205; 93010; J0456; J0610; J0696; J1941; J2930; J3475; J3480; J3490; J7512; J7620

== ENCOUNTER 2019-01-19 01:56 | Outpatient (CLI) | payer MEDICARE, SELFPAY ==
[2019-01-19 11:03] LABS: HCT 40.4 % (36.0-46.0); HGB 12.5 g/dL (12.0-15.5); Mean Corp. HGB Concentration 30.9 g/dL (32.0-36.0); Mean Corpuscular Hemoglobin 28.7 pg (27.0-33.0); Mean Corpuscular Volume 92.9 fL (80-95); Platelet Count 635 x1000/uL (130-400); RBC 4.35 m/cumm (4.00-5.20); RBC Distribution Width 14.1 % (11.7-14.6); White Blood Cell Count 13.95 k/cumm (4.4-10.8)
== END 2019-01-19 02:16 ==
PROVIDERS: Visit Provider Nurse Practitioner
DX: J18.9 Pneumonia, unspecified organism (principal)
CPT/HCPCS: 36415; 85027

== ENCOUNTER 2019-01-22 08:16 | Outpatient (CLI) | payer MEDICARE, SELFPAY ==
[2019-01-22 11:47] LABS: HCT 38.1 % (36.0-46.0); HGB 11.7 g/dL (12.0-15.5); Mean Corp. HGB Concentration 30.7 g/dL (32.0-36.0); Mean Corpuscular Hemoglobin 28.4 pg (27.0-33.0); Mean Corpuscular Volume 92.5 fL (80-95); Mean Platelet Volume 9.3 fL (8.0-11.0); Platelet Count 564 x1000/uL (130-400); RBC 4.12 m/cumm (4.00-5.20); RBC Distribution Width 14.6 % (11.7-14.6); White Blood Cell Count 13.87 k/cumm (4.4-10.8)
[2019-01-22 11:57] LABS: ALT 42 U/L (12-78); AST 15 U/L (15-37); Albumin 3.3 g/dL (3.4-5.0); Alkaline Phosphatase 79 U/L (46-116); Anion Gap 5.9 mmol/L (3-11); BUN 18 mg/dL (7-18); Bilirubin, Total 0.3 mg/dL (0.2-1.0); CO2 31.1 mmol/L (21.0-32.0); CREATININE 1.05 mg/dL (0.55-1.02); Calcium 8.4 mg/dL (8.5-10.1); Chloride 100 mmol/L (98-107); Estimated GFR 51.96 (mL/min/1.73m2); Glucose 82 mg/dL (70-100); NT-proBNP 801 pg/mL; Potassium 4.8 mmol/L (3.5-5.1); Sodium 137 mmol/L (136-145); Total Protein 6.6 g/dL (6.4-8.2)
[2019-01-22 16:01] LABS: Vitamin D 25 Total < 5 ng/ml (30-100)
== END 2019-01-22 08:36 ==
PROVIDERS: Visit Provider Internal Medicine
DX: I50.9 Heart failure, unspecified (principal); M81.0 Age-related osteoporosis without current pathological fracture; E87.6 Hypokalemia; J18.9 Pneumonia, unspecified organism; J44.1 Chronic obstructive pulmonary disease with (acute) exacerbation
CPT/HCPCS: 36415; 80053; 82306; 85027; 83880

== ENCOUNTER 2019-01-27 12:00 | Outpatient (CLI) | payer MEDICARE, SELFPAY ==
--- NOTE | 2019-01-27 11:50 | DI.RAD_ITS ---
SYMPTOMS/DIAGNOSIS: SYMPTOMS IMPROVED AFTER DISCHARGE, WORSENING AGAIN, J18.9, R00.0, J44.9 CHEST X-RAY, PA AND LATERAL: Comparison is 01/12/19. The heart size and pulmonary vasculature are within normal limits. The lungs are clear. No effusions or pneumothoraces are identified. No acute osseous abnormality is identified. IMPRESSION: No acute pulmonary process.
[2019-01-27 12:22] LABS: Abs Immature Grans 0.06 k/cumm (0.0-0.09); Absolute Basophil Count 0.02 k/cumm (0.0-0.2); Absolute Eosinophil Count 0.01 k/cumm (0.0-0.7); Absolute Lymphocyte Count 0.42 k/cumm (1.2-3.4); Absolute Monocyte Count 0.52 k/cumm (0.11-0.7); Absolute Neutrophil Count 10.12 k/cumm (1.2-6.7); Basophils % 0.2; Eosinophils % 0.1; HCT 37.4 % (36.0-46.0); HGB 11.5 g/dL (12.0-15.5); Immature Grans % 0.5; Lymphocytes % 3.8; Mean Corp. HGB Concentration 30.7 g/dL (32.0-36.0); Mean Corpuscular Hemoglobin 28.8 pg (27.0-33.0); Mean Corpuscular Volume 93.5 fL (80-95); Mean Platelet Volume 8.6 fL (8.0-11.0); Monocytes % 4.7; Neutrophils % 90.7; Platelet Count 444 x1000/uL (130-400); RBC Distribution Width 15.3 % (11.7-14.6); White Blood Cell Count 11.16 k/cumm (4.4-10.8)
== END 2019-01-27 12:20 ==
DX: J18.9 Pneumonia, unspecified organism (principal); R00.0 Tachycardia, unspecified; J44.9 Chronic obstructive pulmonary disease, unspecified
CPT/HCPCS: 36415; 71046; 85025

== ENCOUNTER 2019-02-02 08:54 | Inpatient (IN) | payer MEDICARE, SELFPAY ==
[2019-02-02] VITALS (128 sets, daily range): BP systolic 86–183; BP diastolic 43–87; PULSE 66–121; RESP 2–43; TEMP 37; O2SAT 86–100
[2019-02-02] MEDS: Albuterol/Ipratropium 3 ML UPD VIAL UPD ×2 (09:10→18:50)
--- NOTE | 2019-02-02 09:10 | W.ED.GENAD ---
Discharge Plan Disposition Patient Disposition: [facility] INPATIENT Condition: Stable Discharge Details Chief Complaint: Chest Pain Clinical Impression: Acute exacerbation of chronic obstructive pulmonary disease (COPD) Admit Date/Time: 02/02/19 10:29 Admit Provider: Angelina Chino Attending Provider: Angelina Chino Primary Care Provider: Yazmin Yañez ED Provider: Anne Snell Discharge Data Discharge Date/Time-TO BE ENTERED AT DEPARTURE: 02/02/19 14:25 Medical Decision Making 68-year-old female with history of CVA, CHF, COPD, hypertension who presents with shortness of breath for the past 2 weeks, worse over the past 3 days. Also complaining of bilateral lower extremity edema. Respiratory rate 20s to 30s. Sats on arrival per nursing 60s, now 100% on nonrebreather. Speaks in 3-4 word sentences. Diminished breath sounds throughout with fine crackles to bases bilaterally. Nonpitting edema bilateral lower extremities. Differential diagnosis includes acute CHF, acute COPD, pneumonia, IA, dissection. We will give a DuoNeb and additional 5 mg albuterol neb, 40 mg Lasix, Solu-Medrol, cardiac work-up, portable chest x-ray. Will trial on BiPAP to see if improves pt symptoms. 0920 -- patient unable to tolerate BiPAP. Patient states she is claustrophobic and very anxious. Will give a dose of Ativan and reattempt. 0950 -- patient tolerating BiPAP. Still w/ scattered wheezing but improved breath sounds. She is significantly drowsy after Ativan but arousable and able to answer questions. RR mid 20s. Improvement in work of breathing. Will give a 7.5mg neb and reassess. 1015 -- labs and imaging reviewed. White blood cell count 11. Troponin negative. BNP 659. Mag 1.7. Chest x-ray negative for acute findings. Patient appears much more comfortable. Breath sounds improved. Will admit for acute COPD versus acute CHF exacerbation. Will hold on antibiotics at this time as she has no fever or sputum or obvious pneumonia on x-ray. 1025 -- discussed with hospitalist - accepts patient for admission. ABG notes an acute respiratory acidosis with some compensation -- pH 7.28, PCO2 of 77, PO2 of 96, HCO3 37 -- on BiPAP Medical Records Medical records reviewed: Yes I reviewed the patient's medical records. Imaging Data Radiologic Study: Radiologist's impression: PORTABLE AP CHEST at 0946 hours: The heart is not enlarged. The lungs appear clear and well expanded. CONCLUSION: No evidence of acute disease. Lab Data Lab results reviewed: Yes I reviewed the patient's lab results. Laboratory Tests Range/Units 02/02/19 02/02/19 09:10 09:10 WBC (4.4-10.8) k/cumm 11.56 H RBC (4.00-5.20) m/cumm 4.14 Hgb (12.0-15.5) g/dL 12.1 Hct (36.0-46.0) % 38.9 MCV (80-95) fL 94.0 MCH (27.0-33.0) pg 29.2 MCHC (32.0-36.0) g/dL 31.1 L RDW (11.7-14.6) % 15.3 H Plt Count (130-400) x1000/uL 380 MPV (8.0-11.0) fL 8.8 Immature Gran % 0.3 Neutrophils % 83.7 Lymphocytes % 7.9 Monocytes % 7.6 Eosinophils % 0.3 Basophils % 0.2 Absolute Neutrophils (1.2-6.7) k/cumm 9.68 H Absolute Lymphocytes (1.2-3.4) k/cumm 0.91 L Absolute Monocytes (0.11-0.7) k/cumm 0.88 H Absolute Eosinophils (0.0-0.7) k/cumm 0.03 Absolute Basophils (0.0-0.2) k/cumm 0.02 Sodium (136-145) mmol/L 135 L Potassium (3.5-5.1) mmol/L 4.0 Chloride (98-107) mmol/L 95 L Carbon Dioxide (21.0-32.0) mmol/L 34.3 H Anion Gap (3-11) mmol/L 5.7 BUN (7-18) mg/dL 22 H Creatinine (0.55-1.02) mg/dL 0.84 Estimated GFR/1.73 m2 (mL/min/1.73m2) >= 60.00 Glucose (70-100) mg/dL 125 H Calcium (8.5-10.1) mg/dL 9.2 Magnesium (1.8-2.4) mg/dL 1.7 L Total Bilirubin (0.2-1.0) mg/dL 0.4 AST (15-37) U/L 15 ALT (12-78) U/L 41 Alkaline Phosphatase (46-116) U/L 101 Troponin I (0.00-0.06) ng/mL < 0.02 NT-Pro-B Natriuret Pep ( - 299) pg/mL 659 H Total Protein (6.4-8.2) g/dL 7.7 Albumin (3.4-5.0) g/dL 3.7 ECG Data Attestation: I personally reviewed and interpreted this ECG (s) as follows: Interpretation: rate of 105bpm. Sinus tachycardia. No acute ST elevation or depression. QTc 418. QRS 76. HPI General Mode of arrival: wheelchair. Date/Time Provider Initiated Documentation: 02/02/19 09:01. Limitations to Documentation: no limitations. Information obtained by: patient. HPI Narrative: Patient is a 68-year-old female with a history of CVA, COPD, hypertension, GERD who presents the ED with a complaint of shortness of breath for the past 2 weeks, worse over the past 3 days. Patient was admitted here last month for pneumonia and COPD and discharged last week. She states she is still taking antibiotics and the prednisone taper. She states she has had intermittent left-sided chest pain with radiation up to her neck for the past 3 days. She denies any known fever or vomiting and states she has been eating and drinking normally. She also admits to a dry cough. Related Data Home Medications Medication Instructions Recorded Confirmed albuterol sulfate 1 amp INHALATION QID PRN #50 amp 05/27/18 02/02/19 amlodipine 5 mg PO DAILY #90 tab-cap 05/27/18 02/02/19 fluticasone propion-salmeterol 1 puff INHALATION BID #3 disk 05/27/18 02/02/19 [Advair Diskus] furosemide 20 mg PO QAM #90 tab-cap 05/27/18 02/02/19 montelukast 10 mg PO DAILY #90 tab-cap 05/27/18 02/02/19 guaifenesin [Mucinex] 600 mg PO BID PRN 01/12/19 02/02/19 acidophilus-pectin, citrus 1 cap PO TID #9 tab 01/16/19 02/02/19 metoprolol tartrate 25 mg PO BID #30 tab 01/16/19 02/02/19 pantoprazole 40 mg PO DAILY@0730 #30 tab 01/16/19 02/02/19 cholecalciferol (vitamin D3) 50,000 unit PO QWEEK #8 cap 01/22/19 02/02/19 50,000 unit capsule levofloxacin 750 mg tablet 750 mg PO DAILY #7 tab 01/27/19 02/02/19 prednisone 10 mg tablet 10 mg PO DAILY #9 tab 01/27/19 02/02/19 Previous Rx's Medication Instructions Recorded albuterol sulfate 1 amp INHALATION QID PRN #50 amp 05/27/18 amlodipine 5 mg PO DAILY #90 tab-cap 05/27/18 fluticasone propion-salmeterol 1 puff INHALATION BID #3 disk 05/27/18 [Advair Diskus] furosemide 20 mg PO QAM #90 tab-cap 05/27/18 montelukast 10 mg PO DAILY #90 tab-cap 05/27/18 acidophilus-pectin, citrus 1 cap PO TID #9 tab 01/16/19 metoprolol tartrate 25 mg PO BID #30 tab 01/16/19 pantoprazole 40 mg PO DAILY@0730 #30 tab 01/16/19 cholecalciferol (vitamin D3) 50,000 unit PO QWEEK #8 cap 01/22/19 50,000 unit capsule levofloxacin 750 mg tablet 750 mg PO DAILY #7 tab 01/27/19 prednisone 10 mg tablet 10 mg PO DAILY #9 tab 01/27/19 Allergies Allergy/AdvReac Type Severity Reaction Status Date / Time hydrochlorothiazide Allergy Mild rash Verified 02/02/19 10:18 Sulfa (Sulfonamide Allergy Unknown Verified 02/02/19 10:18 Antibiotics) lisinopril AdvReac Mild did not Verified 02/02/19 10:18 feel well General Stated Complaint: Chest Pain KAYCE: 2 Review of Systems Review of Systems All systems reviewed & are unremarkable except as noted in HPI and below Constitutional Reports as per HPI, Denies chills and Denies fever(s) Eyes Denies blurry vision ENT Denies dizziness, Denies sore throat and Denies throat swelling Cardiovascular Reports chest pain and Reports dyspnea Respiratory Reports cough and Reports dyspnea Gastrointestinal Denies abdominal pain, Denies diarrhea and Denies vomiting Genitourinary Denies hematuria and Denies dysuria Musculoskeletal Denies back pain and Denies numbness Integumentary/Breasts Denies lesions and Denies rash Neurologic Denies dizziness, Denies focal weakness and Denies numbness Allergic/Immunologic Denies throat swelling [facility] Medical History Arthritis (Acute 02/10/13) CVA (cerebral vascular accident) (Acute 02/10/13) Chronic obstructive lung disease (Acute) Fatigue (Acute 02/10/13) Osteoporosis (Acute 01/14/08) Discharge planning issues (Acute) Tachycardia (Acute) DVT prophylaxis (Acute) CAP (community acquired pneumonia) (Acute) HTN (hypertension) (Chronic) GERD (gastroesophageal reflux disease) (Chronic) COPD (chronic obstructive pulmonary disease) (Chronic) GERD (gastroesophageal reflux disease) (Chronic) HTN (hypertension) (Chronic) Surgical History Endoscopic Carpal Tunnel release (03/31/13) Family History Mother Essential hypertension Hyperlipidemia Father Heart disease Neoplasm Sister No problems noted. Sister No problems noted. Brother No problems noted. Brother No problems noted. Grandfather Stroke Grandfather Heart disease Grandmother Heart disease Grandmother Stroke Son Diabetes Essential hypertension Daughter No problems noted. Social History Smoking/Tobacco Use Status: Former Tobacco Use Alcohol Intake: never Drug use: Never Do you feel safe at home: Yes Do you feel safe in your relationship?: Yes Exam Const General: cooperative, healthy appearing and no acute distress HENMT Head: normal to inspection Face and sinus: normal facial exam Eyes General: appearance normal, both eyes and all related structures Neck Neck: normal visual inspection and No submandibular swelling Lymphatic: no lymphadenopathy noted Chest Chest: normal inspection of the chest and no tenderness Resp Effort & Inspection: normal respiratory effort and not able to speak in complete sentences (speaks in 3-4 word sentences) Auscultation: crackles bilaterally at the base and diminished lung sounds bilaterally throughout Cardio Rate: tachycardic Rhythm: regular rhythm GI Inspection: normal to inspection Palpation: soft, not firm, not rigid and nontender Auscultation: normal bowel sounds Skin General skin exam: no rashes or lesions noted Neuro General: alert, awake and oriented x3 Cognition: normal cognition Speech: speech normal Motor: muscle tone normal throughout Sensory Exam: no sensory deficits noted Extrem General: normal to inspection, full ROM and edema Laterality: bilateral (nonpitting) Psych Appearance: grossly normal Mental Status: mental status grossly normal Speech and Movement: speech and movement normal Affect: normal affect Course Vital Signs Temperature 98.6 F 02/02/19 09:06 Pulse 66 02/02/19 09:06 Respiratory Rate 14 02/02/19 09:06 Blood Pressure 135/58 L 02/02/19 09:06 Pulse Oximetry 95 02/02/19 09:06 Temperature 98.6 F 02/02/19 09:06 Pulse 66 02/02/19 09:06 Respiratory Rate 14 02/02/19 09:06 Respiratory Effort Non-Labored 02/02/19 09:09 Blood Pressure 135/58 L 02/02/19 09:06 Pulse Oximetry 95 02/02/19 09:06 Oxygen Delivery Method Room Air 02/02/19 09:06 Oxygen Flow Rate 0 02/02/19 09:06 Pain Level 1 02/02/19 09:06
[2019-02-02] MEDS: Albuterol 2.5 MG/3 ML INH SOLN VIAL 5 MG UPD (09:24)
[2019-02-02] MEDS: Furosemide 40 MG/4 ML VIAL IVP (09:25)
[2019-02-02] MEDS: methylPREDNISolone SUCC 125 MG VIAL IVP (09:25)
[2019-02-02] MEDS: LORazepam 2 MG/ML VIAL 1 MG IVP (09:26)
[2019-02-02 09:29] LABS: Abs Immature Grans 0.03 k/cumm (0.0-0.09); Absolute Basophil Count 0.02 k/cumm (0.0-0.2); Absolute Lymphocyte Count 0.91 k/cumm (1.2-3.4); Absolute Monocyte Count 0.88 k/cumm (0.11-0.7); Absolute Neutrophil Count 9.68 k/cumm (1.2-6.7); Basophils % 0.2; Eosinophils % 0.3; HCT 38.9 % (36.0-46.0); HGB 12.1 g/dL (12.0-15.5); Immature Grans % 0.3; Lymphocytes % 7.9; Mean Corp. HGB Concentration 31.1 g/dL (32.0-36.0); Mean Corpuscular Hemoglobin 29.2 pg (27.0-33.0); Mean Platelet Volume 8.8 fL (8.0-11.0); Monocytes % 7.6; Neutrophils % 83.7; Platelet Count 380 x1000/uL (130-400); RBC 4.14 m/cumm (4.00-5.20); RBC Distribution Width 15.3 % (11.7-14.6); White Blood Cell Count 11.56 k/cumm (4.4-10.8)
[2019-02-02 09:30] LABS: Absolute Eosinophil Count 0.03 k/cumm (0.0-0.7)
--- NOTE | 2019-02-02 09:42 | DI.RAD_ITS ---
SYMPTOM/DIAGNOSIS: CHEST PAIN, SOB PORTABLE AP CHEST at 0946 hours: The heart is not enlarged. The lungs appear clear and well expanded. CONCLUSION: No evidence of acute disease.
[2019-02-02 09:43] LABS: ALT 41 U/L (12-78); AST 15 U/L (15-37); Albumin 3.7 g/dL (3.4-5.0); Alkaline Phosphatase 101 U/L (46-116); Anion Gap 5.7 mmol/L (3-11); BUN 22 mg/dL (7-18); Bilirubin, Total 0.4 mg/dL (0.2-1.0); CO2 34.3 mmol/L (21.0-32.0); CREATININE 0.84 mg/dL (0.55-1.02); Calcium 9.2 mg/dL (8.5-10.1); Chloride 95 mmol/L (98-107); Glucose 125 mg/dL (70-100); Magnesium 1.7 mg/dL (1.8-2.4); NT-proBNP 659 pg/mL; Sodium 135 mmol/L (136-145); Total Protein 7.7 g/dL (6.4-8.2)
[2019-02-02 09:45] LABS: Troponin I < 0.02 ng/mL (0.00-0.06)
[2019-02-02] MEDS: Albuterol 2.5 MG/3 ML INH SOLN VIAL ×4 (09:55→13:15)
[2019-02-02 10:41] LABS: BE 9.9 mmol/L (-3-3); HCO3 37 mmol/L (22-28); pH 7.28 (7.35-7.45); pO2 96 mmHg (83-108); sO2 97 % (94-98); tCO2 34 mmol/L (22-29)
[2019-02-02 10:44] LABS: FIO2 40 %; Site Left Radial; pCO2 77 mmHg (34-47)
[2019-02-02] MEDS: MAGNESIUM SULFATE 2 GM/50 ML BAG IVPB (11:27)
[2019-02-02] MEDS: PIPERACILLIN/TAZO 3.375 GM in Normal Saline 50 ML IVPB ×2 (13:48→19:43)
--- NOTE | 2019-02-02 13:52 | HPE_ITS ---
Date of service: 02/02/19 Time of Service: 11:00 Assessment and Plan (1) Acute respiratory failure with hypoxia and hypercapnia: Current visit: Yes Status: Acute Multifactorial, due to both acute exacerbation of COPD (or one that failed outpatient therapy) as well as Acute on chronic diastolic CHF. Treat above conditions. Repeating ABG to see if BiPAP can be weaned off. Patient is being admitted to the ICU. (2) Acute exacerbation of chronic obstructive pulmonary disease (COPD): Current visit: Yes Status: Acute No evidence of pneumonia on CXR, however, reports persistently purulent sputum. Patient has recently completed a combination of azithromycin and cephalosporin and is still on levofloxacin as outpatient. I feel that at this point, we are forced to upgrade antibiotics to vancomycin/zosyn. Obtain sputum culture. Treat with systemic and inhaled corticosteroids, nebs, antitussives. Wean BiPAP/O2 as tolerated. (3) Acute on chronic diastolic CHF (congestive heart failure): Current visit: Yes Status: Acute Diurese with lasix gtt. (4) Chest discomfort: Current visit: Yes Status: Acute Initial EKG without evidence of acute ischemia and troponin negative. Will trend troponins, monitor on telemetry. (5) GERD (gastroesophageal reflux disease): Current visit: No Status: Chronic Continue home PPI (6) Hypomagnesemia: Current visit: Yes Status: Acute Replete (7) Discharge planning issues: Current visit: No Status: Acute Code status verified with patient. She is ok with receiving chest compressions and defibrillation but not intubation. DNI entered in the system. Total amount of time spent providing critical care/documentation on the patient is 45 minutes. (8) DVT prophylaxis: Current visit: No Status: Acute Lovenox History of Present Illness Chief Complaint: shortness of breath Narrative: Ms Myers is a 68 year old female with PMHx of non-oxygen dependent COPD, chronic diastolic CHF, recent CA P, treated with azithromycin and rocephin at [facility] from 01/14 until 01/16, and who remains on a steroid taper (10 mg PO daily of prednisone is the dose she took this morning), and initiated on levofloxacin by her PCP on 01/27/19, still on it, who has been getting progressively shorter of breath since 01/30/19. She describes wheezing, cough productive of yellow sputum (not her normal sputum color), chest tightness/pressure radiating to the Left side of her neck (described to the ED provider, to me she complains of chest tightness only), bilateral leg swelling, and orthopnea. She states she has been urinating less for the last couple of days. She denies fevers/chills. Her son felt that she was sick enough to be at the hospital 3 days ago, but the patient refused until today. At [facility] ED, her O2 sats were in the 60's on room air when she first arrived, and her respiratory rate was in the 30's. She was placed on BiPAP. This made her very anxious, and for this she required IV ativan, which was quite sedating for her. Her ABG revealed pH of 7.28, pCO2 of 77, pO2 of 96 while on BiPAP 10/5 and FiO2 of 40%. She was initiated on IV lasix, IV steroids, nebs. Because the patient describes persistent purulent sputum, I have also added antibiotics. We were asked to admit the patient for further care. The patient is quite somnolent during my interview with her, making this history limited. Review of Systems Review of Systems 12 systems attempted to be reviewed. Patient is somnolent and on BiPAP, making obtaining of the history difficult. Pertinent positives and negatives are as per HPI. [facility] Medical History Arthritis (Acute 02/10/13) CVA (cerebral vascular accident) (Acute 02/10/13) Chronic obstructive lung disease (Acute) Fatigue (Acute 02/10/13) Osteoporosis (Acute 01/14/08) Discharge planning issues (Acute) Tachycardia (Acute) DVT prophylaxis (Acute) CAP (community acquired pneumonia) (Acute) HTN (hypertension) (Chronic) GERD (gastroesophageal reflux disease) (Chronic) COPD (chronic obstructive pulmonary disease) (Chronic) GERD (gastroesophageal reflux disease) (Chronic) HTN (hypertension) (Chronic) Surgical History Endoscopic Carpal Tunnel release (03/31/13) Family History Mother Essential hypertension Hyperlipidemia Father Heart disease Neoplasm Sister No problems noted. Sister No problems noted. Brother No problems noted. Brother No problems noted. Grandfather Stroke Grandfather Heart disease Grandmother Heart disease Grandmother Stroke Son Diabetes Essential hypertension Daughter No problems noted. Social History Smoking/Tobacco Use Status: Former Tobacco Use Alcohol Intake: never Drug use: Never Do you feel safe at home: Yes Do you feel safe in your relationship?: Yes Meds Home Medications Medication Instructions Recorded Confirmed Type Combivent Respimat Inhal [place] 1 puff INHALATION QID #3 inhaler 05/27/18 02/02/19 Clinic albuterol sulfate 1 amp INHALATION QID PRN #50 amp 05/27/18 02/02/19 Rx amlodipine 5 mg PO DAILY #90 tab-cap 05/27/18 02/02/19 Rx fluticasone propion-salmeterol 1 puff INHALATION BID #3 disk 05/27/18 02/02/19 Rx [Advair Diskus] furosemide 20 mg PO QAM #90 tab-cap 05/27/18 02/02/19 Rx montelukast 10 mg PO DAILY #90 tab-cap 05/27/18 02/02/19 Rx guaifenesin [Mucinex] 600 mg PO BID PRN 01/12/19 02/02/19 History acidophilus-pectin, citrus 1 cap PO TID #9 tab 01/16/19 02/02/19 Rx metoprolol tartrate 25 mg PO BID #30 tab 01/16/19 02/02/19 Rx pantoprazole 40 mg PO DAILY@0730 #30 tab 01/16/19 02/02/19 Rx cholecalciferol (vitamin D3) 50,000 unit PO QWEEK #8 cap 01/22/19 02/02/19 Rx 50,000 unit capsule levofloxacin 750 mg tablet 750 mg PO DAILY #7 tab 01/27/19 02/02/19 Rx prednisone 10 mg tablet 10 mg PO DAILY #9 tab 01/27/19 02/02/19 Rx Allergies Allergy/AdvReac Type Severity Reaction Status Date / Time hydrochlorothiazide Allergy Mild rash Verified 02/02/19 10:18 Sulfa (Sulfonamide Allergy Unknown Verified 02/02/19 10:18 Antibiotics) lisinopril AdvReac Mild did not Verified 02/02/19 10:18 feel well Exam Narrative Exam Narrative: General: Middle-aged female, in bed, on BiPAP, somnolent, arousable for brief periods. Neurological: somnolent, arousable, following commands. With the BiPAP mask on, it appears she might have a R facial droop, but I am not convinced. Psychiatric: Difficult to establish given mental status Skin: visible skin intact HEENT: Atraumatic, normocephalic, EOMI, dry MM, wearing BiPAP - full oropharyngeal exam deferred, no submandibular or cervical lymphadenopathy, no goiter or JVD Cardiovascular: RRR, quiet KRYSTA Lungs: Wheezing on expiration B (tight); I did not appreciate crackles on my exam Gastrointestinal: abdomen is soft, nontender, nondistended Genitourinary: has a doll Extremities: 2+ BLE edema, symmetric, no clubbing or cyanosis Results Imaging Additional studies: EKG: Sinus Tachycardia, HR 105, poor lead placement in V5, otherwise, no acute ischemia and nonspecific ST changes in inferiolateral leads. CXR: No evidence of acute disease. Labs : 02/02/19 09:10 02/02/19 09:10 Laboratory Results - last 24 hr 02/02/19 02/02/19 02/02/19 09:10 09:10 10:28 WBC 11.56 H RBC 4.14 Hgb 12.1 Hct 38.9 MCV 94.0 MCH 29.2 MCHC 31.1 L RDW 15.3 H Plt Count 380 MPV 8.8 Immature Gran % 0.3 Neutrophils % 83.7 Lymphocytes % 7.9 Monocytes % 7.6 Eosinophils % 0.3 Basophils % 0.2 Absolute Neutrophils 9.68 H Absolute Lymphocytes 0.91 L Absolute Monocytes 0.88 H Absolute Eosinophils 0.03 Absolute Basophils 0.02 Sample Site Left radial pCO2 77 H* pO2 96 O2 Saturation 97 ABG pH 7.28 L ABG HCO3 37 H ABG Total CO2 34 H ABG Base Excess 9.9 H FiO2 40 Sodium 135 L Potassium 4.0 Chloride 95 L Carbon Dioxide 34.3 H Anion Gap 5.7 BUN 22 H Creatinine 0.84 Estimated GFR/1.73 m2 >= 60.00 Glucose 125 H Calcium 9.2 Magnesium 1.7 L Total Bilirubin 0.4 AST 15 ALT 41 Alkaline Phosphatase 101 Troponin I < 0.02 NT-Pro-B Natriuret Pep 659 H Total Protein 7.7 Albumin 3.7 Last Vital Signs Temp 37.0 C 02/02/19 09:06 Pulse 100 H 02/02/19 13:15 Resp 27 H 02/02/19 13:15 BP 136/61 02/02/19 11:01 Pulse Ox 93 L 02/02/19 13:15
[2019-02-02 14:56] LABS: BE 9.9 mmol/L (-3-3); HCO3 37 mmol/L (22-28); pH 7.28 (7.35-7.45); pO2 74 mmHg (83-108); sO2 93 % (94-98); tCO2 35 mmol/L (22-29)
[2019-02-02 14:58] LABS: FIO2L 4 L; Site Right Radial; pCO2 77 mmHg (34-47)
[2019-02-02 15:21] LABS: Troponin I < 0.02 ng/mL (0.00-0.06)
[2019-02-02] MEDS: hydrOXYzine HCL 25 MG TAB PO (16:06)
[2019-02-02] MEDS: Enoxaparin 40 MG/0.4 ML SYR SC (16:27)
[2019-02-02] MEDS: Normal Saline Flush 10 ML SYR IVP (17:45)
[2019-02-02] MEDS: methylPREDNISolone SUCC 125 MG VIAL 60 MG IVP (18:46)
[2019-02-02] MEDS: Normal Saline 500 ML 30 ML IV ×2 (19:06→23:20)
[2019-02-02] MEDS: Budesonide/Formoterol 160/4.5 6 GM 60 PUFF INH IH (19:43)
[2019-02-02] MEDS: Metoprolol 25 MG TAB PO (19:43)
[2019-02-03] VITALS (58 sets, daily range): BP systolic 96–131; BP diastolic 50–70; PULSE 80–121; RESP 2–35; TEMP 34–37.3; O2SAT 4–955
[2019-02-03] MEDS: Albuterol/Ipratropium 3 ML UPD VIAL UPD ×2 (00:12→05:24)
[2019-02-03] MEDS: methylPREDNISolone SUCC 125 MG VIAL 60 MG IVP ×2 (02:15→10:17)
[2019-02-03] MEDS: Normal Saline Flush 10 ML SYR IVP (02:20)
[2019-02-03] MEDS: PIPERACILLIN/TAZO 3.375 GM in Normal Saline 50 ML IVPB ×3 (04:13→20:28)
[2019-02-03] MEDS: Pantoprazole 40 MG TABCR PO (06:54)
[2019-02-03] MEDS: Aspirin 81 MG CHEW 162 MG PO (07:00)
[2019-02-03] MEDS: LORazepam 0.5 MG TAB PO (07:05)
[2019-02-03 07:06] LABS: Absolute Monocyte Count 0.11 k/cumm (0.11-0.7); Absolute Neutrophil Count 6.88 k/cumm (1.2-6.7); HCT 38.1 % (36.0-46.0); HGB 11.4 g/dL (12.0-15.5); Lymphocytes % 2.8; Mean Corp. HGB Concentration 29.9 g/dL (32.0-36.0); Mean Corpuscular Hemoglobin 28.7 pg (27.0-33.0); Mean Platelet Volume 9.1 fL (8.0-11.0); Monocytes % 1.5; Neutrophils % 95.7; Platelet Count 327 x1000/uL (130-400); RBC 3.97 m/cumm (4.00-5.20); RBC Distribution Width 15.6 % (11.7-14.6); White Blood Cell Count 7.19 k/cumm (4.4-10.8)
[2019-02-03 07:13] LABS: Anion Gap 5.3 mmol/L (3-11); BUN 21 mg/dL (7-18); CO2 35.7 mmol/L (21.0-32.0); CREATININE 0.85 mg/dL (0.55-1.02); Calcium 8.5 mg/dL (8.5-10.1); Chloride 96 mmol/L (98-107); Glucose 143 mg/dL (70-100); Magnesium 2.3 mg/dL (1.8-2.4); Potassium 4.3 mmol/L (3.5-5.1); Sodium 137 mmol/L (136-145)
[2019-02-03 07:24] LABS: Troponin I 0.02 ng/mL (0.00-0.06)
[2019-02-03] MEDS: Montelukast 10 MG TAB PO (07:52)
[2019-02-03] MEDS: Budesonide/Formoterol 160/4.5 6 GM 60 PUFF INH IH ×2 (07:52→20:30)
[2019-02-03] MEDS: Metoprolol 25 MG TAB PO ×2 (07:52→20:31)
[2019-02-03 12:28] LABS: Troponin I < 0.02 ng/mL (0.00-0.06)
--- NOTE | 2019-02-03 12:46 | PGE_ITS ---
Date of Service Date of service: 02/03/19 Time of Service: 08:15 Assessment and Plan (1) Acute respiratory failure with hypoxia and hypercapnia: Current visit: Yes Status: Acute Multifactorial, due to both acute exacerbation of COPD (or one that failed outpatient therapy) as well as Acute on chronic diastolic CHF. Improved, doing well off BiPAP. pH better on VBG today. May be able to transfer out of ICU to [facility] with tele this afternoon evening if remains stable. Treatment plan as below (2) Acute exacerbation of chronic obstructive pulmonary disease (COPD): Current visit: Yes Status: Acute Failed outpatient tx. No PNA on CXR. Continue vancomycin/zosyn x 24 more hours. Tomorrow, would d/c vancomycin unless cx data shows presence of MRSA. Start to wean systemic steroids; continue inhaled corticosteroids, nebs, antitussives. Wean O2 as tolerated. (3) Acute on chronic diastolic CHF (congestive heart failure): Current visit: Yes Status: Acute Continue lasix gtt x 24 hours. (4) Chest discomfort: Current visit: Yes Status: Acute Evidently, this has been happening repeatedly. Does get relieved with nitroglycerin, which is concerning. Troponins are negative x4, however, and EKG is without ischemia. Would benefit from a stress test, but I do not feel that she is ready to have a stress test tomorrow. Will consult cardiology. (5) GERD (gastroesophageal reflux disease): Current visit: No Status: Chronic Continue home PPI (6) Hypomagnesemia: Current visit: Yes Status: Acute Repleted (7) Discharge planning issues: Current visit: No Status: Acute The patient now verbalized to case management that she would consider intubation. Code status is being changed to full code, and palliativec are consult is placed. PT/OT consult placed. (8) DVT prophylaxis: Current visit: No Status: Acute Lovenox Subjective Interval history since last seen: Ms Myers feels better today - however, at around 6 am, after getting a duoneb treatment, she complained of L chest tightness radiating up to her L neck and jaw, which she described as pain. At the time, she does not recall feeling dizzy, having more shortness of breath. She is not sure if she was nauseated. The discomfort/pain resolved with nitroglycerin. She feels better now. She now admits to having had these episodes of chest discomfort with radiation multiple times per day for several days. Spent the night on BiPAP - transitioned to NC this am. Cough is improving. Exam Narrative Exam Narrative: General: Middle-aged female, awake, off BiPAP on NC, A&Ox3, very minimally tachypneic, able to speak in 4-5 word phrases HEENT: EOMI, dry MM, no facial droop, no JVD Cardiovascular: RRR, tachycardic, quiet KRYSTA Lungs: Diminished breath sounds B Gastrointestinal: abdomen is soft, nontender, nondistended Genitourinary: has a doll Extremities: trace BLE edema, symmetric, wrinkling noted in the ankles, no clubbing or cyanosis, 1+ pedal pulses B Objective Objective Clinical Data: Abnormal lab results 02/02/19 02/03/19 02/03/19 Range/Units 14:58 06:20 06:20 RBC 3.97 L (4.00-5.20) m/cumm Hgb 11.4 L (12.0-15.5) g/dL MCV 96.0 H (80-95) fL MCHC 29.9 L (32.0-36.0) g/dL RDW 15.6 H (11.7-14.6) % Absolute Neutrophils 6.88 H (1.2-6.7) k/cumm Absolute Lymphocytes 0.20 L (1.2-3.4) k/cumm pCO2 77 H* (34-47) mmHg pO2 74 L (83-108) mmHg O2 Saturation 93 L (94-98) % ABG pH 7.28 L (7.35-7.45) ABG HCO3 37 H (22-28) mmol/L ABG Total CO2 35 H (22-29) mmol/L ABG Base Excess 9.9 H (-3-3) mmol/L Chloride 96 L (98-107) mmol/L Carbon Dioxide 35.7 H (21.0-32.0) mmol/L BUN 21 H (7-18) mg/dL Glucose 143 H (70-100) mg/dL Vital Signs Temperature 37.2 C 02/03/19 09:35 Temperature Source Temporal Artery Scan 02/03/19 09:35 Pulse 85 02/03/19 10:01 Pulse 87 02/03/19 10:01 Respiratory Rate 21 02/03/19 10:01 Respiratory Effort Incrsd Work of Breathing 02/03/19 09:35 Respiratory Depth Shallow 02/03/19 09:35 Respiratory Pattern Tachypnea 02/03/19 09:35 Blood Pressure 102/57 L 02/03/19 10:01 Blood Pressure Mean 68 02/03/19 10:01 Blood Pressure Position Supine 02/03/19 09:35 Pulse Oximetry 96 02/03/19 10:01 Oxygen Delivery Method Nasal Cannula 02/03/19 09:35 Oxygen Flow Rate 4 02/03/19 09:35 Fraction of Inspired Oxygen (FIO2) 30 02/03/19 07:20 Pain Level 0 02/03/19 09:35 Intake & Output 02/02/19 02/03/19 02/03/19 23:59 11:59 23:59 Intake Total 930 / 930 260 / 260 Output Total 1175 / 1475 850 / 850 Balance -245 / -545 -590 / -590 Weight 96.162 kg 77 kg Intake: IV 880 / 880 250 / 250 Oral 50 / 50 10 / 10 Output: Urine 1175 / 1475 850 / 850 Other: Urine Color Yellow Pale Yellow Urine Appearance Clear Clear Comment doll patent Doll catheter in place and draining clear, pale, yellow urine. Laboratory Results WBC 7.19 k/cumm (4.4-10.8) D 02/03/19 06:20 RBC 3.97 m/cumm (4.00-5.20) L 02/03/19 06:20 Hgb 11.4 g/dL (12.0-15.5) L 02/03/19 06:20 Hct 38.1 % (36.0-46.0) 02/03/19 06:20 MCV 96.0 fL (80-95) H 02/03/19 06:20 MCH 28.7 pg (27.0-33.0) 02/03/19 06:20 MCHC 29.9 g/dL (32.0-36.0) L 02/03/19 06:20 RDW 15.6 % (11.7-14.6) H 02/03/19 06:20 Plt Count 327 x1000/uL (130-400) 02/03/19 06:20 MPV 9.1 fL (8.0-11.0) 02/03/19 06:20 Immature Gran % 0.0 02/03/19 06:20 Neutrophils % 95.7 02/03/19 06:20 Lymphocytes % 2.8 02/03/19 06:20 Monocytes % 1.5 02/03/19 06:20 Eosinophils % 0.0 02/03/19 06:20 Basophils % 0.0 02/03/19 06:20 Absolute Neutrophils 6.88 k/cumm (1.2-6.7) H 02/03/19 06:20 Absolute Lymphocytes 0.20 k/cumm (1.2-3.4) L 02/03/19 06:20 Absolute Monocytes 0.11 k/cumm (0.11-0.7) 02/03/19 06:20 Absolute Eosinophils 0.00 k/cumm (0.0-0.7) 02/03/19 06:20 Absolute Basophils 0.00 k/cumm (0.0-0.2) 02/03/19 06:20 Sample Site Right radial 02/02/19 14:58 pCO2 77 mmHg (34-47) H* 02/02/19 14:58 pO2 74 mmHg (83-108) L 02/02/19 14:58 O2 Saturation 93 % (94-98) L 02/02/19 14:58 ABG pH 7.28 (7.35-7.45) L 02/02/19 14:58 ABG HCO3 37 mmol/L (22-28) H 02/02/19 14:58 ABG Total CO2 35 mmol/L (22-29) H 02/02/19 14:58 ABG Base Excess 9.9 mmol/L (-3-3) H 02/02/19 14:58 Oxygen Liter Flow 4 L 02/02/19 14:58 FiO2 40 % 02/02/19 10:28 Sodium 137 mmol/L (136-145) 02/03/19 06:20 Potassium 4.3 mmol/L (3.5-5.1) 02/03/19 06:20 Chloride 96 mmol/L (98-107) L 02/03/19 06:20 Carbon Dioxide 35.7 mmol/L (21.0-32.0) H 02/03/19 06:20 Anion Gap 5.3 mmol/L (3-11) 02/03/19 06:20 BUN 21 mg/dL (7-18) H 02/03/19 06:20 Creatinine 0.85 mg/dL (0.55-1.02) 02/03/19 06:20 Estimated GFR/1.73 m2 >= 60.00 (mL/min/1.73m2) 02/03/19 06:20 Glucose 143 mg/dL (70-100) H 02/03/19 06:20 Calcium 8.5 mg/dL (8.5-10.1) 02/03/19 06:20 Magnesium 2.3 mg/dL (1.8-2.4) 02/03/19 06:20 Total Bilirubin 0.4 mg/dL (0.2-1.0) 02/02/19 09:10 AST 15 U/L (15-37) 02/02/19 09:10 ALT 41 U/L (12-78) 02/02/19 09:10 Alkaline Phosphatase 101 U/L (46-116) 02/02/19 09:10 Troponin I < 0.02 ng/mL (0.00-0.06) 02/03/19 11:40 NT-Pro-B Natriuret Pep 659 pg/mL (-299) H 02/02/19 09:10 Total Protein 7.7 g/dL (6.4-8.2) 02/02/19 09:10 Albumin 3.7 g/dL (3.4-5.0) 02/02/19 09:10
[2019-02-03 13:03] LABS: HCO3 (Venous) 43 mmol/L (22-28); O2 Sat (Venous) 45 % (70-80); TCO2 (Venous) 40 mmol/L (22-29); pCO2 (Venous) 78 mm/Hg (34-47); pH (Venous) 7.35 (7.32-7.43); pO2 (Venous) 26 mm/Hg (28-44)
--- NOTE | 2019-02-03 13:41 | INITIAL_ITS ---
- If Service Date Differs Date of service: 02/03/19 Time of Service: 12:46 Care Management Initial Assess REASON FOR HOSPITALIZATION:: COPD exacerbation, acute hypoxia, CHF PAST MEDICAL HISTORY/PAST SURGICAL HISTORY:: Medical History: COPD (chronic obstructive pulmonary disease) (Chronic), GERD (gastroesophageal reflux disease), HTN (hypertension). Surgical History: Endoscopic Carpal Tunnel release (03/31/13) PREVIOUS FUNCTIONAL STATUS/SOCIAL/FAMILY SUPPORTS:: Jackie lives in her own home with her son and grandson. She has a daughter who lives in [place] and has 2 additional grandchildren and 2 great grandchildren. 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 She is completely independent with ADLs, driving, shopping and maintaining her own firewood. CURRENT FUNCTIONAL STATUS:: Jackie is alert and engaged with CM during assessment. She is lying in bed she is able to articulate her days prior to admission. She reports she had chest pressure since Saturday intermintantly and was unable to lay flat. She states that she has had poor activity tolerence at home and has been unable to tolerate moving from one room to another r/t shortness of breath. She states she felt well after her last discharge. She states she was able to move her home around and compelte daily task until the symptoms started. She states she does not want any addtional services at home. She states I am an old [place] I need to be able to take care of myself and my home. She states her baseline is the ability to process her own firewood and and care for her home. ADVANCE DIRECTIVES:: On file Has patient been provided with information about the portal?: Yes Did the patient sign up for the portal?: No INSURANCE COVERAGE / FINANCIAL ISSUES:: Medicare CURRENT HOME/COMMUNITY SERVICES/EQUIPMENT:: No current services she declines any additional help. CM did review resources including chronic care classes and healthy living as well as oulmonary rehab to improve lung health and stability. PRIMARY CARE PHYSICIAN:: Yazmin Yañez NP POTENTIAL DISCHARGE NEEDS:: Follow up appoiontment with primary care scheduled prior to discharge. PATIENT/FAMILY EDUCATION NEEDS:: Discharge education, limitations and follow up plan of care including ask me three education and self management. CM provided teaching related to COPD and managment of chronic condition. ANTICIPATED BARRIERS TO DISCHARGE:: None identified TRANSPORTATION:: Via private car with family at time of discharge PLAN:: Jackie is currently receiving supplemental oxygen, lasix drip and IV antibiotics. She remians in the ICU anticiapte no change in status today. She will have daily weights and continue fluid balance monitoring. CM to continue to provide support to pt and family ongoing discharge planning and disposition. Readmission - Within the Past 30 Days Yes or No: Y - Date of First Admission Date of 1st Admission: 01/12/19 - Date of this Admission This admission was: Through ED - Office Visit Since 1st Admission Date of PCP Appointment: 01/27/19 Had an appointment Been Scheduled?: Yes - I. Interview patient and/or Family Difficulty reaching your doctor or getting an office appt?: No Have you had trouble purchasing/ or taking medication?: No Have you had trouble with getting meals at home?: No Did you feel ready for discharge when you left the last time: Yes (yes i felt ready to return home) What services were received?: declined If patient did not receive services, were there orders at: No Did you call your physician beore you came to the ED?: No How do you think you became sick enough to come back?: I began having chest pressure and unable to lay down for several days prior to going to the ED. I thought I was just tired and maybe needed to rest when I could no longer sleep in the recliner my son made me go to the ed - If the patient had a VNA ordered Did the patient have a VNA order?: No - ED visits How many ED visits in the past 12 months: 2 - Assessment for Readmission Summary of readmission circumstances, based upon interviews: Jackie states that she felt ready to be discharged last discharge. She was able to return home and continue task she did see her provider and was restarted on steroids per her report. She states that she also completed antibiotics as directed, She tried to not come into the hospital when she started having difficulty and attempted to manage her symptoms at home. She said she could hear her heart pounding in her ears when she would lay down. She states once she was no longer able to tolerate being in a recliner and the chest pressure her son had her go to the ED. She states she knew she was gaining some fluid in her legs however did not realize she was experiencing CHF. Jackie does not want home services she states that she needs to be independent with taking care of her home. She does have support people in the home including her son and grandson that can help with the tasks. She declines extra support services including home health. CM provided educational resources related to CHF/ and COPD. CM contacted chronic intensive care medicine specialist to follow up and support transition.
[2019-02-03] MEDS: Ipratropium 0.5 MG/2.5 ML UPD VIAL UPD ×3 (13:49→23:40)
[2019-02-03] MEDS: Enoxaparin 40 MG/0.4 ML SYR SC (16:32)
[2019-02-03] MEDS: methylPREDNISolone SUCC 40 MG VIAL IVP (18:12)
[2019-02-03] MEDS: Normal Saline 500 ML 30 ML IV (22:16)
[2019-02-03] MEDS: Acetaminophen 325 MG TAB PO (23:46)
[2019-02-04] VITALS (59 sets, daily range): BP systolic 101–151; BP diastolic 45–81; PULSE 70–127; RESP 17–36; TEMP 34–37.4; O2SAT 89–98
[2019-02-04] MEDS: hydrOXYzine HCL 25 MG TAB PO (00:10)
[2019-02-04] MEDS: methylPREDNISolone SUCC 40 MG VIAL IVP ×3 (02:19→18:34)
[2019-02-04] MEDS: PIPERACILLIN/TAZO 3.375 GM in Normal Saline 50 ML IVPB ×3 (05:29→19:39)
[2019-02-04 07:35] LABS: Abs Immature Grans 0.02 k/cumm (0.0-0.09); Absolute Lymphocyte Count 0.28 k/cumm (1.2-3.4); Absolute Monocyte Count 0.37 k/cumm (0.11-0.7); HGB 10.8 g/dL (12.0-15.5); Immature Grans % 0.2; Lymphocytes % 2.7; Mean Corpuscular Hemoglobin 29.3 pg (27.0-33.0); Mean Corpuscular Volume 97.6 fL (80-95); Mean Platelet Volume 9.1 fL (8.0-11.0); Monocytes % 3.6; Neutrophils % 93.5; Platelet Count 288 x1000/uL (130-400); RBC 3.69 m/cumm (4.00-5.20); RBC Distribution Width 15.6 % (11.7-14.6); White Blood Cell Count 10.27 k/cumm (4.4-10.8)
[2019-02-04 07:36] LABS: Anion Gap 3.2 mmol/L (3-11); BUN 22 mg/dL (7-18); CO2 37.8 mmol/L (21.0-32.0); CREATININE 0.81 mg/dL (0.55-1.02); Calcium 8.2 mg/dL (8.5-10.1); Chloride 96 mmol/L (98-107); Glucose 121 mg/dL (70-100); Sodium 137 mmol/L (136-145)
[2019-02-04] MEDS: Budesonide/Formoterol 160/4.5 6 GM 60 PUFF INH IH ×2 (07:45→19:39)
[2019-02-04] MEDS: Pantoprazole 40 MG TABCR PO (07:56)
[2019-02-04] MEDS: Montelukast 10 MG TAB PO (07:56)
[2019-02-04] MEDS: Aspirin 81 MG CHEW 162 MG PO (07:56)
[2019-02-04] MEDS: Metoprolol 25 MG TAB PO ×2 (07:56→19:40)
--- NOTE | 2019-02-04 08:37 | W.CARDCONSUL ---
Date of service: 02/04/19 Assessment and Plan (1) Chest discomfort: Current visit: Yes Status: Acute Symptoms suggestive of angina. This could be either due to coronary artery disease, microvascular disease vasospasm. Symptoms could have have certainly be exacerbated by hypoxia and anemia. She ruled out for CA. There were no ischemic changes on EKG. LV systolic function is normal and there were no regional wall motion abnormalities. She is electrically stable. Proceed with nuclear stress test to assess for coronary artery disease. Medical management is indicated for low risk test results. Cardiac catheterization should be considered for moderate or high risk test results. Risk will be determined by amount of ischemia and post stress EF. Continue metoprolol tartrate 25 mg twice daily Continue aspirin 81 mg daily Obtain fasting cholesterol profile to determine cardiovascular risk and need for statin for primary prevention. If abnormal stress test start atorvastatin 40 mg nightly Complete anemia work-up. (2) Acute on chronic diastolic CHF (congestive heart failure): Current visit: Yes Status: Acute Acute diastolic heart failure most likely driven by hypertension but need to consider ischemia as well. Continue IV diuresis, goal net negative 500 - 1000 cc Monitor for at least 24 hours after transition to p.o. diuretic diuretic. Consider adding on spironolactone if potassium remains less than 4.5 or if the patient requires potassium replacement, starting dose 12.5 mg Importance of low-sodium diet discussed. Strongly recommend an inpatient nutrition consult regarding DASH-Mediterranean diet. (3) HTN (hypertension): Current visit: No Status: Chronic Mildly hypertensive in setting of acute illness. Patient did not tolerate hydrochlorothiazide or lisinopril for Continue amlodipine 5 mg daily. If blood pressure persistently greater than 140 consider adding either an ARB. This can be done as an outpatient. Qualifiers: Hypertension type: essential hypertension Qualified Code(s): I10 - Essential (primary) hypertension History of Present Illness Chief Complaint: Chest pain Narrative: 68-year-old woman with tobacco dependence in remission, migraines associated with stroke like symptoms, GERD, COPD, hypertension, and heart failure with preserved ejection. Admitted 2 weeks ago for COPD exacerbation. 3 days prior to admission chest pressure with radiation into left jaw and left shoulder at rest and with exertion. Days prior to this episode she experienced worsening shortness of breath and productive cough; steroids were restarted. Her diet did not contain a particular high sodium load. She did not measure her blood pressure at home. Over the next few days she developed pedal edema shortness of breath worsened. She was hypoxic upon admission. Chest x-ray did not show an acute process. She ruled out for CA. NT proBNP was approximately 700. Echocardiogram was notable for preserved ejection fraction and diastolic dysfunction with elevated filling pressures as well as pulmonary hypertension. Telemetry did not significant tachycardia or bradycardia arrhythmia. Laboratory studies were further notable for anemia. She denies hematochezia, melena, hemoptysis, hematuria, bruising. Symptoms improved with forced diuresis and nitroglycerin. She still experience occasional chest discomfort. She denies PND, syncope, focal deficits, claudication, GI or symptoms. 10 point review of systems was performed; all pertinent positives as mentioned HPI, all others negative Allergies reviewed and include hydrochlorothiazide and lisinopril. Medications reviewed. Cardiac medications include aspirin, furosemide, metoprolol, amlodipine and enoxaparin . Available records including laboratory, cardiac and radiology studies reviewed; pertinent findings as mentioned above. Consults Consult date: 02/04/19 Requesting physician: Angelina Chino [facility] Medical History Arthritis (Acute 02/10/13) CVA (cerebral vascular accident) (Acute 02/10/13) Chronic obstructive lung disease (Acute) Fatigue (Acute 02/10/13) Osteoporosis (Acute 01/14/08) Discharge planning issues (Acute) Tachycardia (Acute) DVT prophylaxis (Acute) CAP (community acquired pneumonia) (Acute) HTN (hypertension) (Chronic) GERD (gastroesophageal reflux disease) (Chronic) COPD (chronic obstructive pulmonary disease) (Chronic) GERD (gastroesophageal reflux disease) (Chronic) HTN (hypertension) (Chronic) Surgical History Endoscopic Carpal Tunnel release (03/31/13) Family History Mother Essential hypertension Hyperlipidemia Father Heart disease Neoplasm Sister No problems noted. Sister No problems noted. Brother No problems noted. Brother No problems noted. Grandfather Stroke Grandfather Heart disease Grandmother Heart disease Grandmother Stroke Son Diabetes Essential hypertension Daughter No problems noted. Social History Smoking/Tobacco Use Status: Former Tobacco Use Alcohol Intake: never Drug use: Never Do you feel safe at home: Yes Do you feel safe in your relationship?: Yes Exam Narrative Exam Narrative: General: pleasant, no acute distress, wearing oxygen HEENT: Anicteric, mucus membranes moist Neck: Supple, normal JVP, brisk carotid upstrokes, no bruits Chest: Non-tender Lungs: Poor air entry bilaterally, distant breath sounds, scattered, faint expiratory wheezes Cardiac: Regular rate, regular rhythm, normal S1S2, no murmurs Abdomen: Soft, non-tender, bowel sounds present Extremities: No clubbing, cyanosis or edema, equal pulses in all 4 extremities Skin: Warm and dry, no rashes Neuro: Alert and oriented x3, grossly intact Results Last Vital Signs Temp 36.7 C 02/04/19 04:05 Pulse 92 H 02/04/19 06:01 Resp 30 H 02/04/19 06:01 BP 141/71 H 02/04/19 06:01 Pulse Ox 96 02/04/19 06:01 Labs : 02/04/19 06:10 02/04/19 06:10 Laboratory Results - last 24 hr 02/03/19 02/03/19 02/04/19 11:40 12:56 06:10 WBC RBC Hgb Hct MCV MCH MCHC RDW Plt Count MPV Immature Gran % Neutrophils % Lymphocytes % Monocytes % Eosinophils % Basophils % Absolute Neutrophils Absolute Lymphocytes Absolute Monocytes Absolute Eosinophils Absolute Basophils VBG pH 7.35 VBG pCO2 78 H VBG pO2 26 L VBG HCO3 43 H VBG Total CO2 40 H VBG O2 Saturation 45 L VBG Base Excess Sodium 137 Potassium 4.0 Chloride 96 L Carbon Dioxide 37.8 H Anion Gap 3.2 BUN 22 H Creatinine 0.81 Estimated GFR/1.73 m2 >= 60.00 Glucose 121 H Calcium 8.2 L Magnesium 2.0 Troponin I < 0.02 02/04/19 06:10 WBC 10.27 D RBC 3.69 L Hgb 10.8 L Hct 36.0 MCV 97.6 H MCH 29.3 MCHC 30.0 L RDW 15.6 H Plt Count 288 MPV 9.1 Immature Gran % 0.2 Neutrophils % 93.5 Lymphocytes % 2.7 Monocytes % 3.6 Eosinophils % 0.0 Basophils % 0.0 Absolute Neutrophils 9.60 H Absolute Lymphocytes 0.28 L Absolute Monocytes 0.37 Absolute Eosinophils 0.00 Absolute Basophils 0.00 VBG pH VBG pCO2 VBG pO2 VBG HCO3 VBG Total CO2 VBG O2 Saturation VBG Base Excess Sodium Potassium Chloride Carbon Dioxide Anion Gap BUN Creatinine Estimated GFR/1.73 m2 Glucose Calcium Magnesium Troponin I
[2019-02-04] MEDS: Furosemide 40 MG TAB PO ×2 (09:26→16:34)
--- NOTE | 2019-02-04 10:13 | W.PM.PROGNOT ---
Date of Service Date of service: 02/04/19 Time of Service: 10:13 Assessment and Plan (1) Acute respiratory failure with hypoxia and hypercapnia: Current visit: Yes Status: Acute Multifactorial, due to both acute exacerbation of COPD (or one that failed outpatient therapy) as well as Acute on chronic diastolic CHF. Improving. Did not require BiPAP overnight. Transfer out of ICU to [facility] surg with tele. Treatment as below. (2) Acute exacerbation of chronic obstructive pulmonary disease (COPD): Current visit: Yes Status: Acute Failed outpatient tx. No PNA on CXR. D/c vancomycin. Continue zosyn. Keep steroids the same as sounds extremely diminished on exam. Could benefit from IS and acapella. Continue inhaled corticosteroids, nebs, antitussives. Wean O2 as tolerated. (3) Acute on chronic diastolic CHF (congestive heart failure): Current visit: Yes Status: Acute D/c lasix gtt and transition to PO lasix. (4) Chest discomfort: Current visit: Yes Status: Acute Suspicious for angina. I am not sure that she will be ready for a stress test tomorrow, but I am preemptively making her NPO and ordering a stress test for tomorrow am, which we can cancel if she is not ready. (5) GERD (gastroesophageal reflux disease): Current visit: No Status: Chronic Continue home PPI (6) Hypomagnesemia: Current visit: Yes Status: Acute Repleted (7) Discharge planning issues: Current visit: No Status: Acute Full code, but the patient has been waxing and waning on her code status. Palliative care consulted. PT/OT consulted (8) DVT prophylaxis: Current visit: No Status: Acute Lovenox Subjective Interval history since last seen: Reports chest pain overnight radiating to L neck and ear. This responded to nitroglycerin again. On tele, there were several nonsustained episodes of SVT (no more than 5 beats each). [place] a little dizzy today with PT. Shortness of breath is better. Cough is still there, she did not bring up any sputum, but thinks she probably could. Denies nausea/vomiting. Evaluated by cardiology - Dr Coley recommends a stress test. Off lasix gtt. Doll out this morning. Exam Narrative Exam Narrative: General: Middle-aged female, awake, sitting in a chair on humidified heated high flow, A&Ox3, ? mildly tachypneic HEENT: EOMI, MMM, no JVD Cardiovascular: RRR, tachycardic, quiet KRYSTA Lungs: Diminished breath sounds B Gastrointestinal: abdomen is soft, nontender, nondistended Genitourinary: has a doll Extremities: +1 BLE edema, symmetric, better than yesterday, no clubbing or cyanosis, 1+ pedal pulses B Objective Objective Clinical Data: Abnormal lab results 02/03/19 02/04/19 02/04/19 Range/Units 12:56 06:10 06:10 RBC 3.69 L (4.00-5.20) m/cumm Hgb 10.8 L (12.0-15.5) g/dL MCV 97.6 H (80-95) fL MCHC 30.0 L (32.0-36.0) g/dL RDW 15.6 H (11.7-14.6) % Absolute Neutrophils 9.60 H (1.2-6.7) k/cumm Absolute Lymphocytes 0.28 L (1.2-3.4) k/cumm VBG pCO2 78 H (34-47) mm/Hg VBG pO2 26 L (28-44) mm/Hg VBG HCO3 43 H (22-28) mmol/L VBG Total CO2 40 H (22-29) mmol/L VBG O2 Saturation 45 L (70-80) % Chloride 96 L (98-107) mmol/L Carbon Dioxide 37.8 H (21.0-32.0) mmol/L BUN 22 H (7-18) mg/dL Glucose 121 H (70-100) mg/dL Calcium 8.2 L (8.5-10.1) mg/dL Vital Signs Temperature 36.7 C 02/04/19 04:05 Temperature Source Temporal Artery Scan 02/04/19 04:05 Pulse 92 H 02/04/19 06:01 Pulse 101 H 02/04/19 06:01 Respiratory Rate 30 H 02/04/19 06:01 Respiratory Effort 02/04/19 04:05 Respiratory Depth Normal 02/04/19 04:05 Respiratory Pattern Tachypnea 02/04/19 04:05 Blood Pressure 141/71 H 02/04/19 06:01 Blood Pressure Mean 88 02/04/19 06:01 Blood Pressure Position Sitting 02/04/19 00:20 Pulse Oximetry 96 02/04/19 06:01 Oxygen Delivery Method Hi Flow Nasal Cannula 02/04/19 04:05 Oxygen Flow Rate 40 02/04/19 00:20 Fraction of Inspired Oxygen (FIO2) 39 02/04/19 00:20 Pain Level 0 02/04/19 04:05 Intake & Output 02/03/19 02/03/19 02/04/19 11:59 23:59 11:59 Intake Total 310 / 2697 2387 / 2697 874.458 / 874.458 Output Total 850 / 1850 1000 / 1850 1000 / 1000 Balance -540 / 847 1387 / 847 -125.542 / -125.542 Weight 77 kg Intake: IV 300 / 1157 857 / 1157 634.458 / 634.458 Oral 10 / 1540 1530 / 1540 240 / 240 Output: Urine 850 / 1850 1000 / 1850 1000 / 1000 Other: Urine Color Pale Pale Yellow Yellow Urine Appearance Clear Clear Clear Comment Doll catheter in place and draining clear, pale, yellow urine. Doll catheter in place and draining Doll catheter in place and draining Laboratory Results WBC 10.27 k/cumm (4.4-10.8) D 02/04/19 06:10 RBC 3.69 m/cumm (4.00-5.20) L 02/04/19 06:10 Hgb 10.8 g/dL (12.0-15.5) L 02/04/19 06:10 Hct 36.0 % (36.0-46.0) 02/04/19 06:10 MCV 97.6 fL (80-95) H 02/04/19 06:10 MCH 29.3 pg (27.0-33.0) 02/04/19 06:10 MCHC 30.0 g/dL (32.0-36.0) L 02/04/19 06:10 RDW 15.6 % (11.7-14.6) H 02/04/19 06:10 Plt Count 288 x1000/uL (130-400) 02/04/19 06:10 MPV 9.1 fL (8.0-11.0) 02/04/19 06:10 Immature Gran % 0.2 02/04/19 06:10 Neutrophils % 93.5 02/04/19 06:10 Lymphocytes % 2.7 02/04/19 06:10 Monocytes % 3.6 02/04/19 06:10 Eosinophils % 0.0 02/04/19 06:10 Basophils % 0.0 02/04/19 06:10 Absolute Neutrophils 9.60 k/cumm (1.2-6.7) H 02/04/19 06:10 Absolute Lymphocytes 0.28 k/cumm (1.2-3.4) L 02/04/19 06:10 Absolute Monocytes 0.37 k/cumm (0.11-0.7) 02/04/19 06:10 Absolute Eosinophils 0.00 k/cumm (0.0-0.7) 02/04/19 06:10 Absolute Basophils 0.00 k/cumm (0.0-0.2) 02/04/19 06:10 Sample Site Right radial 02/02/19 14:58 pCO2 77 mmHg (34-47) H* 02/02/19 14:58 pO2 74 mmHg (83-108) L 02/02/19 14:58 O2 Saturation 93 % (94-98) L 02/02/19 14:58 ABG pH 7.28 (7.35-7.45) L 02/02/19 14:58 ABG HCO3 37 mmol/L (22-28) H 02/02/19 14:58 ABG Total CO2 35 mmol/L (22-29) H 02/02/19 14:58 ABG Base Excess 9.9 mmol/L (-3-3) H 02/02/19 14:58 VBG pH 7.35 (7.32-7.43) 02/03/19 12:56 VBG pCO2 78 mm/Hg (34-47) H 02/03/19 12:56 VBG pO2 26 mm/Hg (28-44) L 02/03/19 12:56 VBG HCO3 43 mmol/L (22-28) H 02/03/19 12:56 VBG Total CO2 40 mmol/L (22-29) H 02/03/19 12:56 VBG O2 Saturation 45 % (70-80) L 02/03/19 12:56 VBG Base Excess mmol/L (-3-3) 02/03/19 12:56 Oxygen Liter Flow 4 L 02/02/19 14:58 FiO2 40 % 02/02/19 10:28 Sodium 137 mmol/L (136-145) 02/04/19 06:10 Potassium 4.0 mmol/L (3.5-5.1) 02/04/19 06:10 Chloride 96 mmol/L (98-107) L 02/04/19 06:10 Carbon Dioxide 37.8 mmol/L (21.0-32.0) H 02/04/19 06:10 Anion Gap 3.2 mmol/L (3-11) 02/04/19 06:10 BUN 22 mg/dL (7-18) H 02/04/19 06:10 Creatinine 0.81 mg/dL (0.55-1.02) 02/04/19 06:10 Estimated GFR/1.73 m2 >= 60.00 (mL/min/1.73m2) 02/04/19 06:10 Glucose 121 mg/dL (70-100) H 02/04/19 06:10 Calcium 8.2 mg/dL (8.5-10.1) L 02/04/19 06:10 Magnesium 2.0 mg/dL (1.8-2.4) 02/04/19 06:10 Total Bilirubin 0.4 mg/dL (0.2-1.0) 02/02/19 09:10 AST 15 U/L (15-37) 02/02/19 09:10 ALT 41 U/L (12-78) 02/02/19 09:10 Alkaline Phosphatase 101 U/L (46-116) 02/02/19 09:10 Troponin I < 0.02 ng/mL (0.00-0.06) 02/03/19 11:40 NT-Pro-B Natriuret Pep 659 pg/mL (-299) H 02/02/19 09:10 Total Protein 7.7 g/dL (6.4-8.2) 02/02/19 09:10 Albumin 3.7 g/dL (3.4-5.0) 02/02/19 09:10
--- NOTE | 2019-02-04 10:31 | PHARADMIT ---
Addendum entered by Annabel Martinez 02/10/19 16:31: Pharmacy Note Subjective appeared volume depleted per progres note, gentle hydration ordered Objective BP-146/78 HR-96 other VS okay Na-127 K+5.5 Cl-89 mag-2.6 Assessment methylprednisolone changed to prednisone Plan possible discharge tomorrow pending hydration Addendum entered by Annabel Martinez 02/09/19 16:37: Pharmacy Note Subjective pt continues to appear dehydrated per progress note, diuretics still on hold Objective VS okay Na-128 mag-2.5 WBC-10.26(down) Assessment no med changes Plan continue to watch VS, labs and med changes Addendum entered by Radha Whitehead 02/07/19 14:38: Pharmacy Note Subjective frequent COPD exacerbations and evidence of acute on chronic hypoxic hypercapnic respiratory failure Objective bp up 166/84, afebrile, WBC 9.3 Assessment Vancomycin (now day 1)restarted, pip/tazo (day 5)continues Plan vancomycoin trough when appropriate Addendum entered by Drew Degroot III 02/06/19 16:23: Pharmacy Note Subjective Stress test negative, Patient transferred to Med,surg floor. Objective VS-OK SCr-0.82 Lytes,WBC, H&H,Plts-OK Assessment Vancomycin DC, Zosyn continues Plan No completed MD note entered Original Note: Admission Pharmacy Clinical Review acute exacerbation of COPD, acute hypoxic resp Code Status Full Code Current Weight 77 kg Renally Cleared and Narrow Therapeutic Index Meds crcl ~47ml/min QTc Value / Action Taken 436 BP Control, Fever 141/71 afebrile Electrolytes reviewed ok DVT Prophylaxis enoxaparin Opiate Usage / Scheduled Bowel Regimen Ordered no/PRN Plt/SCr for Heparin / Enoxaparin 288/0.81 INR for Warfarin na H/H stable, WBC/Bands 10.8/36.0 wbc 10.27 Antibiotic appropriateness pip/tazo, vancomycin Cultures and Sensitivities BC no growth 24 hrs,sputum culture pending Surgical ABX d/c within 24 hr na DM control / Insulin Dosing na Heart Failure (Check EF%) (DOE's, B-Block, Diuretics) na IV to PO Switch Home Meds Reviewed Home Meds Not Ordered albuterol sulfate 1 amp INHALATION QID PRN #50 amp 05/27/18 amlodipine 5 mg PO DAILY #90 tab-cap 05/27/18 [Rx Confirmed 02/02/19] fluticasone propion-salmeterol [Advair Diskus] 1 puff INHALATION BID acidophilus-pectin, citrus 1 cap PO TID #9 tab 01/16/19 cholecalciferol (vitamin D3) 50,000 unit capsule 50,000 unit PO QWEEK levofloxacin 750 mg tablet 750 mg PO DAILY #7 tab 01/27/19 prednisone 10 mg tablet 10 mg PO DAILY #9 tab 01/27/19 (ON IV) Comments
--- NOTE | 2019-02-04 11:20 | OTIE_ITS ---
Occupational Therapy Notes Inpatient Occupational Therapy Evaluation Date: 02/04/19 Referring Doctor: Angelina Chino MD OT Orders: Eval and Treat Precautions: Fall, Standard PATIENT PROFILE/ADMITTING DIAGNOSIS: Pt is a 68 year old female who was admitted through the ER for acute CHF, acute COPD, pneumonia, LA, dissection. Past Medical History: Medical History Arthritis (Acute 02/10/13) CVA (cerebral vascular accident) (Acute 02/10/13) Chronic obstructive lung disease (Acute) Fatigue (Acute 02/10/13) Osteoporosis (Acute 01/14/08) Discharge planning issues (Acute) Tachycardia (Acute) DVT prophylaxis (Acute) CAP (community acquired pneumonia) (Acute) HTN (hypertension) (Chronic) GERD (gastroesophageal reflux disease) (Chronic) COPD (chronic obstructive pulmonary disease) (Chronic) GERD (gastroesophageal reflux disease) (Chronic) HTN (hypertension) (Chronic) Surgical History Endoscopic Carpal Tunnel release (03/31/13) Social History/Home Situation: 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 She reports that prior to admission she was totally (I) with all ADLs/IADLs. She states that she enjoys spending her free time splitting and stacking firewood. Equipment owned/DME: None SUBJECTIVE: Pt was sitting in bed when OT arrived. She was agreeable to OT session and states that she is feeling better today. OBJECTIVE: General Observation: O2 nasal cannula, BP (L) UE, (B) IVs in elbows, telemetry Mental Status: A&Ox3 Pain: no c/o pain ROM: RUE AROM WFL L UE AROM WFL STRENGTH: RUE 4+/5 throughout globally LUE 4+/5 throughout globally FUNCTIONAL MOBILITY/ADLS: Transfers Supine-sit (I) Sit-supine (I) Sit-Stand (S) Stand-sit (S) Pivot transfer to commode (S) BATHING Pt denies. DRESSING Unable to (I) don and doff (B) socks at this time. GROOMING Pt denies TOILETING On commode (I) EATING (I) BALANCE: Static sitting Normal Dynamic Sitting Normal Static Standing Good Dynamic Standing Good SPECIAL TESTS: Daily Activity Limitations Standardized Measure [facility] AM PAC ?6 clicks? Daily Activity Inpatient Short Form: Raw score: 22 Standardized score: 47.10 CMS score: 25.80% INFORMED CONSENT/EDUCATION: Pt instructed in purpose of OT Consult and plan of care. ASSESSMENT: Patient is a 68-year-old female referred to occupational therapy services with diagnosis of acute CHF, acute COPD, pneumonia, LA, dissection. P atient presents with clinical signs and symptoms consistent with dx, as demonstrated by the following impairment level findings/ functional limitations: Decreased functional activity tolerance, functional mobility performed with O2 nasal cannula, decreased standing tolerance. Pt would benefit from skilled OT services for increased (I) in her ADL/IADL routine to get her back to her baseline level of function. AMPAC score 22, CMS score 25.80% Patient is assessed as a Low 53938 complexity based on the following: History: See Above Examination: See Above Presentation: Evolving Decision Making: AMPAC score 22, CMS score 25.80% GOALS Goals x1 week 1. Transfers (I) 2. Dressing (I) 3. Bathing (I) sitting in chair 4. Toileting (I) on toilet 5. Eating (I) 6. Grooming (I) standing at sink PLAN OF CARE/TREATMENT PLAN: 1x/day, 5 days/ week x 1week Initiate Occupational Therapy Services for bathing, dressing, grooming, toileting, eating, transfer training. DISCHARGE RECOMMENDATIONS Home with services TREATMENT TIME/MINUTES/CODES 00159, 25 minutes (08:40) Lydia Fuentes [facility]
[2019-02-04] MEDS: Ipratropium 0.5 MG/2.5 ML UPD VIAL UPD ×2 (11:42→18:07)
--- NOTE | 2019-02-04 12:08 | IN_ITS ---
Date of service: 02/04/19 Time of Service: 09:18 PT Notes Inpatient Physical Therapy Evaluation Date: 02/04/2019 Referring Doctor:Angelina Chino MD PT Orders: PT CONSULT: Eval and treat Precautions: Fall. Standard. Significantly limited endurance, needs frequent rests. Patient Profile/Admitting Diagnosis: Patient is a 68-year-old female who presented to the ED on 02/02/2019 with chief complaint of shortness of breath, productive cough with yellow sputum, chest tightness radiating to the left side of neck, bilateral lower extremity swelling, and orthopnea. Patient was diagnosed with Acute respiratory failure with hypoxia and hypercapnia, acute on chronic obstructive pulmonary disease, acute on chroninc CHF, and hypomagnesemia. Orders for physical therapy were received yesterday for functional mobility training and maximization of functional activity tolerance. PMHX: Medical History Arthritis (Acute 02/10/13) CVA (cerebral vascular accident) (Acute 02/10/13) Chronic obstructive lung disease (Acute) Fatigue (Acute 02/10/13) Osteoporosis (Acute 01/14/08) Discharge planning issues (Acute) Tachycardia (Acute) DVT prophylaxis (Acute) CAP (community acquired pneumonia) (Acute) HTN (hypertension) (Chronic) GERD (gastroesophageal reflux disease) (Chronic) COPD (chronic obstructive pulmonary disease) (Chronic) GERD (gastroesophageal reflux disease) (Chronic) HTN (hypertension) (Chronic) Surgical History Endoscopic Carpal Tunnel release (03/31/13) Social History/Home Situation: 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 She is independent with all aspects of ADLs with no assistive ambulatory device nor adaptive equipment. She still drives. She states she has 1 step to enter the house who he shares with her son and grandson. Since going home from her recent hospitalization, patient had been able to walk dog on her porch some 230 feet without undue fatigue nor shortness of breath. Current Functional Limitations: Patient has poor activity tolerance which has limited her ability to participate in all aspects of ADLs Equipment Owned/DME: [place] Subjective: Patient was seen sitting on. She is agreeable to a PT consult and ttreatment today. She states that last noc, she had one episode of heaavy feeling and could hear her heart was pounding through her ears which necessitated administartion of nurse by 1 nitroglycerin with good resolution. She reports no other episode since. She states she has not fallen since going home last month. She reports dizziness upon sitting back down from standing activity with this Pt today. Objective: General Observation: Continuous high flow oxygen. Patient seen dyspneic at rest and with conversation. Mild Swelling on B UE/LE noted with R more than L. No digital clubbing/cyanosis observed. Telemetry monitoring on. IV in R UE. Mental Status: Alert and oriented x3 Pain: 0/10 Vital Signs: Seated- 151/67 mmHg, 29 cpm, 100 bpm, 92% on HF. Standing- 119/58 mmHg to 121/57 mmHg, 37 to 31 cp, 101 to 105 bpm, 88%-93% on HF. ROM: Right Upper Extremity: Shoulder Flexion WFL. Shoulder abduction WFL. Elbow flexion WFL. Wrist flexion WFL. Functional opening and closing of hand WFL. Left Upper Extremity: Shoulder Flexion WFL. Shoulder abduction WFL. Elbow flexion WFL. Wrist flexion WFL. Functional opening and closing of hand WFL. Right Lower Extremity: Hip flexion WFL. Hip abduction WFL. Knee flexion WFL. Ankle dorsiflexion WFL. Ankle plantarflexion WFL. Left Lower Extremity: Hip flexion WFL. Hip abduction WFL. Knee flexion WFL. Ankle dorsiflexion WFL. Ankle plantarflexion WFL. STRENGTH: Right Upper Extremity: Shoulder flexors 5/5. Shoulder abductors 5/5. Elbow flexors 5/5. Elbow extensors 5/5. Shoe Puller strong. Left Upper Extremity: Shoulder flexors 5/5. Shoulder abductors 5/5. Elbow flexors 5/5. Elbow extensors 5/5. Shoe Puller strong. Right Lower Extremity: Hip flexors 4/5. Hip abductors 4/5. Knee flexors 4/5. Knee extensors 4/5. Ankle dorsiflexors 5/5. Ankle plantarflexors 5/5. Right Lower Extremity:Hip flexors 4/5. Hip abductors 4/5. Knee flexors 4/5. Knee extensors 4/5. Ankle dorsiflexors 5/5. Ankle plantarflexors 5/5. Sensation: Intact to B UE LE as to pain and pressure. BED MOBILITY LEVELS/TRANSFERS Rolling supervision using siderails for support with increased completion time observed Supine to sit supervision using siderails for support with increased completion time observed Sit to supine supervision using siderails for support with increased completion time observed Sit to stand SBA Stand to sit SBA Bed to chair SBA Chair to bed SBA Gait: Patient only able to tolerate 2 steps forward and 2 steps backward using FWW due to extremely low activity tolerance. Balance: Static Sitting: Good Dynamic Sitting: Good Static Standing: Fair Dynamic Standing: Fair Special Tests: Mobility Limitations Standardized Measure [facility] AM-PAC 6 clicks basic Mobility Inpatient Short Form: Raw Score: 16 CMS score: 54.16% deficit Informed Consent/Education: Patient instructed in purpose of PT consult and plan of care. She was instructed on correct technique for pursed lip breathing, activity pacing, and energy conservation techniques. Assessment: Patient is a 68-year-old female referred to physical therapy services with the diagnosis of progression of community-acquired pneumonia acute on chronic COPD. Patient presents with clinical signs and symptoms consistent with current/admitting diagnoses that have resulted to mobility limitations, gait instability, generalized weakness, and impairment of motor control as demonstrated by the following impairment level findings: 1. Decreased strength to B LE major muscle groups 2. Impaired sitting/standing balance 3. Impaired activity tolerance Impairments are contributing to the following functional limitations: 1. Increased completion time for bed mobility skills 2. Increased completion time for transfers 3. Inability to safely ambulate without assistive device and physical assistance 4. Increase completion time for mobility ADL performance 5. Increased fall risk 6. Inability to negotiate steps alone safely Patient is assessed as a Moderate [id number] complexity based on the following: History: 68-year-old female with diagnosis of acute respiratory failure, acute on chronic COPD, acute on chronic CHF, hypomagnesemia who had been independent with all aspects of ADLs prior to admission Examination: Underlying impairments and functional deficits as noted above Presentation: Evolving Decision Makin moderate complexity Goals: Goals X1 week 1. Supine-Sit independent 2. Sit-Supine independent 3. Sit-Stand independent 4. Stand-Sit independent 5. Bed-Chair independent 6. Chair-Bed independent 7. Independent gait on level surface without use of assistive device for at least 100 feet without report of pain nor dyspnea 8. Independent stair negotiation while holding onto bilateral rails for at least 3 steps without report of pain nor dyspnea 9. Independent with home exercise program 10. Good static and dynamic standing balance/tolerance Plan of Care/Treatment Plan: 1x/day, 7 days/week x 1 week. Plan of care has been reviewed with the ORDER DETAILER providing the service under Physical Therapy direction. Initiate Physical Therapy intervention for strengthening, bed mobility, transfers, gait, stairs, balance training, use of assistive device. DISCHARGE RECOMMENDATIONS: Patient will highly benefit from participating in a in outpatient pulmonary rehabilitation program to facilitate return to premorbid independent level. She will benefit from usinf a FWW in order to reduce fatigue level and conserve energy. TREATMENT CODE/TIME: [id number] for 28 minutes beginning at 9:18 AM. Thank you for this referral. Susana Lainez, PT, DPT, CLT [facility]
--- NOTE | 2019-02-04 13:11 | PDOC.CMPRO ---
- If Service Date Differs Date of service: 02/04/19 Time of Service: 13:11 Care Management Progress Note S/O: Jackie will transition to medical surgical status today. She continues to receive IV steroids and antibiotics three times a day. She did have a cardiology consult today her lasix drip was discontinued. She continues to have intermittent chest pressure and will plan to have a stress test here prior to discharge. A:Jackie is a 68 old female admitted with pneumonia and CHF. P:Jackie is currently receiving supplemental oxygen, IV antibiotics and steroids. She will have daily weights and continue fluid balance monitoring. CM to continue to provide support to Pt and family ongoing discharge planning and disposition.
[2019-02-04 13:37] LABS: Vancomycin, Trough 19.4 ug/mL (10.0-20.0)
[2019-02-04] MEDS: Enoxaparin 40 MG/0.4 ML SYR SC (16:34)
[2019-02-04] MEDS: Normal Saline Flush 10 ML SYR IVP ×2 (18:34→19:39)
[2019-02-04] MEDS: Acetaminophen 325 MG TAB PO (19:40)
[2019-02-05] VITALS (18 sets, daily range): BP systolic 126–157; BP diastolic 51–74; PULSE 63–205; RESP 1–30; TEMP 36.2–37.2; O2SAT 89–96
[2019-02-05] MEDS: methylPREDNISolone SUCC 40 MG VIAL IVP ×3 (03:06→21:16)
[2019-02-05] MEDS: PIPERACILLIN/TAZO 3.375 GM in Normal Saline 50 ML IVPB ×3 (03:06→19:49)
[2019-02-05 06:45] LABS: Abs Immature Grans 0.03 k/cumm (0.0-0.09); Absolute Lymphocyte Count 0.28 k/cumm (1.2-3.4); Absolute Monocyte Count 0.52 k/cumm (0.11-0.7); HCT 36.3 % (36.0-46.0); HGB 10.9 g/dL (12.0-15.5); Immature Grans % 0.3; Lymphocytes % 2.8; Mean Corpuscular Hemoglobin 29.1 pg (27.0-33.0); Mean Corpuscular Volume 96.8 fL (80-95); Mean Platelet Volume 8.9 fL (8.0-11.0); Monocytes % 5.2; Neutrophils % 91.7; Platelet Count 293 x1000/uL (130-400); RBC 3.75 m/cumm (4.00-5.20); RBC Distribution Width 15.2 % (11.7-14.6); White Blood Cell Count 10.03 k/cumm (4.4-10.8)
[2019-02-05 06:57] LABS: Anion Gap -2.4 mmol/L (3-11); BUN 22 mg/dL (7-18); CO2 43.4 mmol/L (21.0-32.0); CREATININE 0.86 mg/dL (0.55-1.02); Calcium 8.7 mg/dL (8.5-10.1); Chloride 95 mmol/L (98-107); Glucose 116 mg/dL (70-100); Potassium 4.2 mmol/L (3.5-5.1); Sodium 136 mmol/L (136-145)
[2019-02-05] MEDS: Budesonide/Formoterol 160/4.5 6 GM 60 PUFF INH IH (07:37)
--- NOTE | 2019-02-05 08:07 | W.PM.PROGNOT ---
Date of Service Date of service: 02/05/19 Time of Service: 08:08 Assessment and Plan (1) Acute respiratory failure with hypoxia and hypercapnia: Current visit: Yes Status: Acute Multifactorial, due to both acute exacerbation of COPD (or one that failed outpatient therapy) as well as Acute on chronic diastolic CHF. Improving. The patient, given her frequent COPD exacerbations and evidence of acute on chronic hypoxic hypercapnic respiratory failure, would strongly benefit from NIV. She has been admitted to the hospital twice in less than once month and has failed outpatient therapy for yet another COPD exacerbation in the interim. All of her ABGs on this admission reveal hypercapnia with pCO2 of 67-77. She does not have a diagnosis of obstructive sleep apnea. BiPAP was tried and failed and was difficult for the patient to tolerate. However, she would greatly benefit from NIV therapy at home to prevent recurrences of COPD exacerbations and prevent readmissions. (2) Acute exacerbation of chronic obstructive pulmonary disease (COPD): Current visit: Yes Status: Acute Failed outpatient tx. No PNA on CXR. Continue zosyn. Continue IS and acapella. Wean steroids. Continue nebs, antitussives. Wean O2 as tolerated. (3) Acute on chronic diastolic CHF (congestive heart failure): Current visit: Yes Status: Acute Lasix made IV today as the patient still has some fluid overload clinically. (4) Chest discomfort: Current visit: Yes Status: Acute Suspicious for angina. Await results of nuclear stress test today. (5) GERD (gastroesophageal reflux disease): Current visit: No Status: Chronic Continue home PPI (6) Hypomagnesemia: Current visit: Yes Status: Acute Repleted (7) Discharge planning issues: Current visit: No Status: Acute Met with palliative care - code status changed to DNR/DNI. PT/OT consulted Would strongly benefit from NIV as outpatient. (8) DVT prophylaxis: Current visit: No Status: Acute Lovenox Subjective Interval history since last seen: Remains on 4L via regular nasal cannula, 92% this am. Continues to have a wet cough. On monitor, ST 100-150, frequent PVCs. 1 am - chest pain - nitro given - helped. Chest pain again in stress test today - results are not yet available. Exam Narrative Exam Narrative: General: Middle-aged female, A&Ox3, no tachypnea HEENT: EOMI, MMM, no JVD Cardiovascular: RRR, quiet KRYSTA Lungs: Diminished breath sounds B, crackles at B bases and also at midlung, especially on the right Gastrointestinal: abdomen is soft, nontender, nondistended Genitourinary: has a doll Extremities: trace edema BLE's, no clubbing or cyanosis, 1+ pedal pulses B Objective Objective Clinical Data: Abnormal lab results 02/05/19 02/05/19 Range/Units 06:10 06:10 RBC 3.75 L (4.00-5.20) m/cumm Hgb 10.9 L (12.0-15.5) g/dL MCV 96.8 H (80-95) fL MCHC 30.0 L (32.0-36.0) g/dL RDW 15.2 H (11.7-14.6) % Absolute Neutrophils 9.20 H (1.2-6.7) k/cumm Absolute Lymphocytes 0.28 L (1.2-3.4) k/cumm Chloride 95 L (98-107) mmol/L Carbon Dioxide 43.4 H (21.0-32.0) mmol/L Anion Gap -2.4 L (3-11) mmol/L BUN 22 H (7-18) mg/dL Glucose 116 H (70-100) mg/dL Vital Signs Temperature 36.9 C 02/05/19 07:58 Temperature Source Temporal Artery Scan 02/05/19 07:58 Pulse 81 02/05/19 07:18 Pulse Rhythm Irregular 02/05/19 04:20 Pulse 91 H 02/05/19 07:18 Respiratory Rate 30 H 02/05/19 07:18 Respiratory Effort Non-Labored 02/05/19 07:58 Respiratory Depth Normal 02/05/19 07:58 Respiratory Pattern Normal 02/05/19 07:58 Blood Pressure 138/72 02/05/19 07:18 Blood Pressure Mean 89 02/05/19 07:18 Blood Pressure Position Supine 02/04/19 08:00 Pulse Oximetry 92 L 02/05/19 07:58 Oxygen Delivery Method Nasal Cannula 02/05/19 07:58 Oxygen Flow Rate 4 02/05/19 07:58 Fraction of Inspired Oxygen (FIO2) 39 02/04/19 08:00 Pain Level 0 02/05/19 07:58 Intake & Output 0502/04/19 02/05/19 11:59 23:59 11:59 Intake Total 1164.458 / 1694.458 530 / 1694.458 50 / 50 Output Total 1575 / 2425 850 / 2425 650 / 650 Balance -410.542 / -730.542 -320 / -730.542 -600 / -600 Intake: IV 684.458 / 734.458 50 / 734.458 50 / 50 Oral 480 / 960 480 / 960 Output: Urine 1575 / 2425 850 / 2425 650 / 650 Other: Urine Color Pale Pale Yellow Urine Appearance Clear Clear Clear Urine Odor None Normal Comment Doll catheter in place and draining Mixed with stool. Stool Occult Blood Negative Negative Stool Size Small Moderate Stool Characteristics Brown Soft Laboratory Results WBC 10.03 k/cumm (4.4-10.8) 02/05/19 06:10 RBC 3.75 m/cumm (4.00-5.20) L 02/05/19 06:10 Hgb 10.9 g/dL (12.0-15.5) L 02/05/19 06:10 Hct 36.3 % (36.0-46.0) 02/05/19 06:10 MCV 96.8 fL (80-95) H 02/05/19 06:10 MCH 29.1 pg (27.0-33.0) 02/05/19 06:10 MCHC 30.0 g/dL (32.0-36.0) L 02/05/19 06:10 RDW 15.2 % (11.7-14.6) H 02/05/19 06:10 Plt Count 293 x1000/uL (130-400) 02/05/19 06:10 MPV 8.9 fL (8.0-11.0) 02/05/19 06:10 Immature Gran % 0.3 02/05/19 06:10 Neutrophils % 91.7 02/05/19 06:10 Lymphocytes % 2.8 02/05/19 06:10 Monocytes % 5.2 02/05/19 06:10 Eosinophils % 0.0 02/05/19 06:10 Basophils % 0.0 02/05/19 06:10 Absolute Neutrophils 9.20 k/cumm (1.2-6.7) H 02/05/19 06:10 Absolute Lymphocytes 0.28 k/cumm (1.2-3.4) L 02/05/19 06:10 Absolute Monocytes 0.52 k/cumm (0.11-0.7) 02/05/19 06:10 Absolute Eosinophils 0.00 k/cumm (0.0-0.7) 02/05/19 06:10 Absolute Basophils 0.00 k/cumm (0.0-0.2) 02/05/19 06:10 Sample Site Right radial 02/02/19 14:58 pCO2 77 mmHg (34-47) H* 02/02/19 14:58 pO2 74 mmHg (83-108) L 02/02/19 14:58 O2 Saturation 93 % (94-98) L 02/02/19 14:58 ABG pH 7.28 (7.35-7.45) L 02/02/19 14:58 ABG HCO3 37 mmol/L (22-28) H 02/02/19 14:58 ABG Total CO2 35 mmol/L (22-29) H 02/02/19 14:58 ABG Base Excess 9.9 mmol/L (-3-3) H 02/02/19 14:58 VBG pH 7.35 (7.32-7.43) 02/03/19 12:56 VBG pCO2 78 mm/Hg (34-47) H 02/03/19 12:56 VBG pO2 26 mm/Hg (28-44) L 02/03/19 12:56 VBG HCO3 43 mmol/L (22-28) H 02/03/19 12:56 VBG Total CO2 40 mmol/L (22-29) H 02/03/19 12:56 VBG O2 Saturation 45 % (70-80) L 02/03/19 12:56 VBG Base Excess mmol/L (-3-3) 02/03/19 12:56 Oxygen Liter Flow 4 L 02/02/19 14:58 FiO2 40 % 02/02/19 10:28 Sodium 136 mmol/L (136-145) 02/05/19 06:10 Potassium 4.2 mmol/L (3.5-5.1) 02/05/19 06:10 Chloride 95 mmol/L (98-107) L 02/05/19 06:10 Carbon Dioxide 43.4 mmol/L (21.0-32.0) H 02/05/19 06:10 Anion Gap -2.4 mmol/L (3-11) L 02/05/19 06:10 BUN 22 mg/dL (7-18) H 02/05/19 06:10 Creatinine 0.86 mg/dL (0.55-1.02) 02/05/19 06:10 Estimated GFR/1.73 m2 >= 60.00 (mL/min/1.73m2) 02/05/19 06:10 Glucose 116 mg/dL (70-100) H 02/05/19 06:10 Calcium 8.7 mg/dL (8.5-10.1) 02/05/19 06:10 Magnesium 2.0 mg/dL (1.8-2.4) 02/05/19 06:10 Total Bilirubin 0.4 mg/dL (0.2-1.0) 02/02/19 09:10 AST 15 U/L (15-37) 02/02/19 09:10 ALT 41 U/L (12-78) 02/02/19 09:10 Alkaline Phosphatase 101 U/L (46-116) 02/02/19 09:10 Troponin I < 0.02 ng/mL (0.00-0.06) 02/03/19 11:40 NT-Pro-B Natriuret Pep 659 pg/mL (-299) H 02/02/19 09:10 Total Protein 7.7 g/dL (6.4-8.2) 02/02/19 09:10 Albumin 3.7 g/dL (3.4-5.0) 02/02/19 09:10 Vancomycin Trough 19.4 ug/mL (10.0-20.0) 02/04/19 13:00
[2019-02-05 08:27] LABS: Cholesterol 205 mg/dL (50-200); HDL Cholesterol 87 mg/dL (40-60); LDL CHOLESTEROL 89 mg/dL (<100); Triglyceride 93 mg/dL (30-150)
[2019-02-05] MEDS: Montelukast 10 MG TAB PO (08:30)
[2019-02-05] MEDS: Pantoprazole 40 MG TABCR PO (08:30)
[2019-02-05] MEDS: Aspirin 81 MG CHEW 162 MG PO (08:30)
[2019-02-05] MEDS: Furosemide 40 MG/4 ML VIAL IVP ×2 (08:40→15:16)
[2019-02-05] MEDS: Normal Saline Flush 10 ML SYR IVP ×4 (08:41→21:16)
--- NOTE | 2019-02-05 09:00 | MERGEMPI_ITS ---
*[facility]* *[facility]* [address] [place] [address] Myocardial Perfusion Imaging - SPECT Regadenoson Date of study: 02/05/2019 *PATIENT PRESENTATION* Height: 157.5cm (62in) Blood Pressure: Weight: 75.5kg (166lb) BSA: 1.84m^2 Referring physician: Valentin Murray Ordering physician: Angelina Chino Impressions: Normal perfusion and contraction by Tc99m Sestamibi Imaging. Summary: 1. Myocardial perfusion imaging: No myocardial perfusion defects noted. 2. The calculated left ventricular ejection fraction after stress: 75%. LV global systolic function is normal. No left ventricular regional motion abnormality. 3. Stress ECG conclusions: The stress ECG is negative. 4. Stress: There is resting hypertension with a hypertensive response to stress. Stress-induced atypical chest pain. Indication: R07.89. History: REASON FOR TESTING: INPATIENT FOR COPD EXACERBATION, HAVING CHEST DISCOMFORT RELIEVED BY NITROGLYCERINE SL. TROPONINS NEGATIVE. PMH: HYPOMAGNESEMIA, ACUTE ON CHRONIC DIASTOLIC CHF, COPD, RESP. FAILURE WITH HYPOXEMIA AND HYPERCAPNEA, CVA, FATIGUE, OSTEOPOROSIS, TACHYCARDIA, CAP, HTN, GERD. FAMILY HX: MOTHER- HYPERTENSION, HYPERLIPIDEMIA. FATHER-CAD. SON- HYPERTENSION. SMOKING: FORMER SMOKER EXCERCISE: NO REGULAR EXCERCISE. PMH: COPD. Risk factors: Family history of coronary artery disease. Current tobacco use. Hypertension. Cholesterol: 205mg/dl. HDL: 87mg/dl. LDL: 89mg/dl. Triglycerides: 93mg/dl. ALLERGIES: HCTZ, SULFA, LISINOPRIL. HOME MEDICATIONS:COMBIVENT RESPIMAT 1 PUFF QID, ALBUTEROL SULFAT 1 AMP INHALLATION QID PRN, AMLODIPINE 5 MG DAILY, ADVAIR DISKUS 1 INHALLATION BID, FUROSEMIDE 20 MG QAM, MONTELUKAST 10 MG DAILY, GUAIFENESIN 600 MG BID PRN, ACIDOPHILUS-PECTIN 1 TID, METOPROLOL TARTRATE 25 MG BID, PANTOPRAZOLE 40 MG DAILY, VIT D3 50,000 UNITS QWEEK, PREDNISONE 10 MG DAILY, LEVOFLOXACIN 750 MG DAILY. Imaging Technique: Protocol: Regadenoson. Acquisition: Gated SPECT; 1 day - rest/stress. The patient was imaged in the supine position. Attenuation correction used. Isotope administration: - Rest. Tc[99m]-sestamibi. Dose: 11mCi. Injection time: 11:00 AM. Injection to stress time: 00:45. - Stress. Tc[99m]-sestamibi. Dose: 33mCi. Injection time: 12:45 PM. 1-2 min before end of exercise Baseline ECG: LAST EKG 02/03/2019- SINUS TACHYCARDIA, OCCAS. VEB'S. TODAY'S EKG- SINUS TACHYARRYTHMIA, APC'S AND PVC'S NOTED. Stress protocol: +--------+---+ + + + !Stage !HR !BP (mmHg) ![employer]arm[employer] !Comments ! +--------+---+ + + + !Baseline!109!140/80 (100)! ! ! +--------+---+ + + + !1 min !118!160/68 (99) ! !Inject Regadenoson.! +--------+---+ + + + !3 min !136!158/72 (101)! ! ! +--------+---+ + + + !6 min !126!170/70 (103)! ! ! +--------+---+ + + + !7 min !156!140/80 (100)!Nitroglycerin 0.4 mg SL! ! +--------+---+ + + + !9 min !128!152/80 (104)! ! ! +--------+---+ + + + * Stress results: There is resting hypertension with a hypertensive response to stress. The rate-pressure product for the peak heart rate and blood pressure was 89392ti Hg/min. Stress-induced atypical chest pain. Stress ECG: LEXISCAN TESTING ENDED IN 9 MINS, 21 SECS EFFECT OF MEDICATION NO LONGER PRESENT. MAX HR WAS 162, WITH A HYPERTENSIVE BLOOD PRESSURE RESPONSE. TESTIN PERFORMED WTH THE PATIENT ON OXYGEN AT 4LNC CONTINOUSLY. ECTOPY: NUMEROUS PAC'S AND PVC'S, FREQUENT COUPLETS AND SEVERAL 3 BRAT RUNS OF PAC'S. ANGINA: PT REPORTED CHEST PRESSURE AT [facility] OCCASIONS DURING TESTING AT 5/10 ON THE PAIN SCALE. THE PRESSURE WAS OFTEN FLEETING, BUT AT 7 MINS OF TESTING THE PAIN HAD BEEN STEADY FOR 4 MINS- NITROGLYCERIN 0.4 MG SL GIVEN WITH RELIEF OF PAIN/ PRESSURE. ISCHEMIA: NO ISCHEMIC CHANGES NOTED. The stress ECG is negative. Myocardial perfusion: Imaging information: gated. Left ventricular size is normal. No myocardial perfusion defects noted. Ventricular Function (Wall Motion): The calculated left ventricular ejection fraction after stress: 75%. LV global systolic function is normal. No left ventricular regional motion abnormality. Study data: Valentin Murray MD supervised and was readily available during the procedure. This study was interpreted by [facility]. Study status: Routine. Consent: The risks, benefits, and alternatives to the procedure were explained to the patient and informed consent was obtained. Procedure: Initial setup. A baseline ECG was recorded. Surface ECG leads and manual cuff blood pressure measurements were monitored. Heart sounds: Normal. Lung sounds: Normal. Regadenoson stress test. Stress testing was performed, with regadenoson by intravenous bolus, for a total dose of 0.4mgover 10.00sec, followed by a 5ml saline flush. The infusion was terminated due to per protocol. The patient was unable to exercise due to deconditioning and or frailty. Study completion: All catheters inserted during the procedure were removed. The patient tolerated the procedure well and was discharged from the lab. Discharge: The patient left the laboratory in stable condition. Birthdate: Patient birthdate: 1950. Sex: Gender: female. Study date: Study date: 02/05/2019. Study time: 00:01 AM. Signature Documentation: - The imaging portion of this study was interpreted by [employer] Valentin Murray MD. - The Stress ECG portion of this study was interpreted by Valentin Murray MD. Electronically signed by Valentin Murray 02/05/2019 18:02
--- NOTE | 2019-02-05 09:39 | PDOC.CMPRO ---
- If Service Date Differs Date of service: 02/05/19 Time of Service: 09:39 Care Management Progress Note S/O: Jackie remains in the ICU she is receiving IV Lasix, antibiotics and IV steroids. Palliative care did meet with her today and she changed to a DNR/DNI. RT to assess for additional resp supports at time of discharge including ventilator support triolgy. vs home with oxygen if required. Jackie may qualify for Pulmonary Rehab CM to review with RT as an option. A:Jackie is a 68 old female admitted with pneumonia and CHF. P:Jackie is currently receiving supplemental oxygen, IV antibiotics and steroids. She will have daily weights and continue fluid balance monitoring. CM to continue to provide support to Pt and family ongoing discharge planning and disposition.
--- NOTE | 2019-02-05 11:18 | OT.INTREAT ---
Date of service: 02/05/19 Time of Service: 10:05 Occupational Therapy Notes Occupational Therapy Inpatient Treatment Note Date: 02/05/19 PRECAUTIONS: Standard Precautions SUBJECTIVE: Pt was working with CONDENSER WINDER when OT arrived. Pt was agreeable to OT session. OBJECTIVE: PAIN:no c/o pain but c/o discomfort in chest. FUNCTIONAL MOBILITY Sit-supine: (S) Sit-stand: (S) FWW Stand-sit: (S) FWW BATHING: Performed with set up by nursing (I) prior to OT session. DRESSING: Lower Extremity: In sitting (I) donning and doffing (B) socks GROOMING: Standing at sink with FWW pt was (I) with brushing teeth with ideal technique. ASSESSMENT/PLAN: Pt was educated in energy conservation techniques for self care, home and functional mobility. Pt was receptive to this and verbalized understanding. She is able to demonstrate increased (I) in functional mobility but still presents with decreased functional activity tolerance. OT will continue to work towards goals established at evaluation. TREATMENT CODES/TIME: [id number], 25 minutes (10:05) Lydia Fuentes OTR/[facility]
--- NOTE | 2019-02-05 11:24 | OTTR_ITS ---
Date of service: 02/05/19 Time of Service: 10:05 Occupational Therapy Notes Occupational Therapy Inpatient Treatment Note Date: 02/05/19 PRECAUTIONS: Standard Precautions SUBJECTIVE: Pt was working with SCOUT SNIPER when OT arrived. Pt was agreeable to OT session. OBJECTIVE: PAIN:no c/o pain but c/o discomfort in chest. FUNCTIONAL MOBILITY Sit-supine: (S) Sit-stand: (S) FWW Stand-sit: (S) FWW BATHING: Performed with set up by nursing (I) prior to OT session. DRESSING: Lower Extremity: In sitting (I) donning and doffing (B) socks GROOMING: Standing at sink with FWW pt was (I) with brushing teeth with ideal technique. ASSESSMENT/PLAN: Pt was educated in energy conservation techniques for self car e, home and functional mobility. Pt was receptive to this and verbalized understanding. She is able to demonstrate increased (I) in functional mobility but still presents with decreased functional activity tolerance. OT will continue to work towards goals established at evaluation. TREATMENT CODES/TIME: [id number], 25 minutes (10:05) Lydia Fuentes OTR/[facility]
[2019-02-05] MEDS: Ipratropium 0.5 MG/2.5 ML UPD VIAL UPD ×3 (11:34→23:26)
--- NOTE | 2019-02-05 13:02 | PT.INTREAT ---
Date of service: 02/05/19 Time of Service: 13:02 PT Notes Inpatient Physical Therapy Treatment Note [facility] Date: 02/05/19 PRECAUTIONS: Monitor SaO2 SUBJECTIVE: Jackie states that she feels better today, although continues to feel a little dizzy and lightheaded with changes in position and ambulating. OBJECTIVE: PAIN: No c/o pain BED MOBILITY/TRANSFERS Supine-sit: I Sit-supine: I Sit-stand: I Stand-sit: I Bed-Chair: I Chair-bed: I GAIT Assistive Device: FWW Weight bearing: Full Assist: S Distance: 20' x2 Deviation: Seated rest x1 Static standing at sink x3 minutes with SBA VITALS: SaO2: 87-92% on 2.5L O2 via NC with gait training and at rest; 82-89% on 2.5L O2 via NC with ther ex. Instruction and cueing for purse-lipped breathing techniques. THEREX: Patient completed a LE strengthening program, while seated at EOB, as per flow sheet. ASSESSMENT: Patient tolerated session well with minimal c/o dizziness and lightheadedness with transfers and gait training. She was able to tolerate a progression in gait distance with FWW support and supervision, requiring seated rest x1 due to SOB. Patient would benefit from continued strengthening and gait training for improved activity tolerance and improved cardiovascular endurance. PLAN: Continue with PT's POC TREATMENT CODE/TIME: 30 minutes; [id number], [id number]
--- NOTE | 2019-02-05 13:05 | PTTR_ITS ---
Date of service: 02/05/19 Time of Service: 13:02 PT Notes Inpatient Physical Therapy Treatment Note [facility] Date: 02/05/19 PRECAUTIONS: Monitor SaO2 SUBJECTIVE: Jackie states that she feels better today, although continues to fe el a little dizzy and lightheaded with changes in position and ambulating. OBJECTIVE: PAIN: No c/o pain BED MOBILITY/TRANSFERS Supine-sit: I Sit-supine: I Sit-stand: I Stand-sit: I Bed-Chair: I Chair-bed: I GAIT Assistive Device: FWW Weight bearing: Full Assist: S Distance: 20' x2 Deviation: Seated rest x1 Static standing at sink x3 minutes with SBA VITALS: SaO2: 87-92% on 2.5L O2 via NC with gait training and at rest; 82-89% on 2.5L O2 via NC with ther ex. Instruction and cueing for purse-lipped breathing techniques. THEREX: Patient completed a LE strengthening program, while seated at EOB, as per flow sheet. ASSESSMENT: Patient tolerated session well with minimal c/o dizziness and lightheadedness with transfers and gait training. She was able to tolerate a progression in gait distance with FWW support and supervision, requiring seated rest x1 due to SOB. Patient would benefit from continued strengthening and gait training for improved activity tolerance and improved cardiovascular endurance. PLAN: Continue with PT's POC TREATMENT CODE/TIME: 30 minutes; [id number], [id number]
[2019-02-05] MEDS: Regadenoson 0.4 MG/5 ML SYR IVP (13:28)
[2019-02-05 14:29] LABS: HCO3 45 mmol/L (22-28); pH 7.44 (7.35-7.45); pO2 44 mmHg (83-108); sO2 81 % (94-98); tCO2 41 mmol/L (22-29)
[2019-02-05 14:31] LABS: pCO2 67 mmHg (34-47)
[2019-02-05 14:32] LABS: FIO2 21 %; Site Right Radial
[2019-02-05] MEDS: Metoprolol 25 MG TAB PO ×3 (14:32→21:14)
[2019-02-05] MEDS: Enoxaparin 40 MG/0.4 ML SYR SC (15:17)
--- NOTE | 2019-02-05 17:56 | W.PALLCONSUL ---
Date of service: 02/05/19 Time of Service: 06:56 History of Present Illness Chief Complaint: clarification of code status Narrative: I was asked by the hospitalist to do a consult on Jackie. Jackie is a 68-year-old woman admitted for COPD exacerbation and community-acquired pneumonia. The lady has been thoughtful in the past about her advanced directives. She did not want to be intubated. She has them registered with the [facility] registry. When she spoke with the hospitalist she changed her CODE STATUS to a full code. Dr. Chino wanted this clarified so that she better understood and consequently could choose her preferences. Jackie has worked for [employer]. During this time she saw many people in different states of dying. She has decided because of this that she is not interested in being kept alive by artificial means. She understands what CPR stands for, and is not certain how she feels about chest compressions or intubation. She is feeling much better than when she initially came to the hospital. She states that she was feeling poorly for days, and finally she caves to her son's pressure to be seen at the hospital. She admits she is not a very good patient and does not like to see her PCP often. She lives at home with her son and grandson. Recently her her son girlfriend moved in with 2 children. She feels like this is a bit of a break and that the girlfriend has agreed to do meals and cleaning. States that she was trying to help a girlfriend settle into their home and consequently felt she was doing too much. It became more and more difficult for her to breathe and finally she presented to [facility] with community-acquired pneumonia and a COPD exacerbation Consults Consult date: 02/05/19 Requesting physician: Angelina Chino Assessment and Plan (1) Acute exacerbation of chronic obstructive pulmonary disease (COPD): Current visit: Yes Status: Acute (2) Acute respiratory failure with hypoxia and hypercapnia: Current visit: Yes Status: Acute (3) Tachycardia: Current visit: No Status: Acute Jackie and I spoke for quite some time regarding her wishes. We talked about what CPR entailed regarding chest compressions and intubation. In the end she decided she did not want to be resuscitated, but she does want other care in the form of IV antibiotics etc. I explained that being a DNR does not mean that she will not receive care only that she will not receive 3 things i.e. chest compressions electrical shocks and intubation. In the end she wanted to sign a COLST form stating that she is a DNR/DNI, she would still want to be transferred, she would want antibiotics, she does not want a feeding tube, she would want IV hydration. I discussed this with both the hospitalist and the care management people I also let her PCP know about this. If there are further discussions regarding end-of-life choices I am happy to see Jackie again. This document was created by [employer] and may contain grammatical and translation errors. I have spent more than 50% of time in counseling with this patient. Review of Systems Constitutional Reports fatigue Eyes Reports system reviewed and no additional complaints, except as docu ENT Reports system reviewed and no additional complaints, except as docu Cardiovascular Reports irregular heart rhythm, Reports palpitations, Reports dyspnea and Reports dyspnea on exertion Respiratory Reports chest congestion, Reports cough, Reports dyspnea, Reports dyspnea on exertion and Reports wheezing Gastrointestinal Reports diarrhea Genitourinary Reports system reviewed and no additional complaints, except as docu Psychiatric Denies depression Endocrine Reports fatigue and Reports palpitations Allergic/Immunologic Reports wheezing [facility] Medical History Arthritis (Acute 02/10/13) CVA (cerebral vascular accident) (Acute 02/10/13) Chronic obstructive lung disease (Acute) Fatigue (Acute 02/10/13) Osteoporosis (Acute 01/14/08) Discharge planning issues (Acute) Tachycardia (Acute) DVT prophylaxis (Acute) CAP (community acquired pneumonia) (Acute) HTN (hypertension) (Chronic) GERD (gastroesophageal reflux disease) (Chronic) COPD (chronic obstructive pulmonary disease) (Chronic) GERD (gastroesophageal reflux disease) (Chronic) HTN (hypertension) (Chronic) Surgical History Endoscopic Carpal Tunnel release (03/31/13) Family History Mother Essential hypertension Hyperlipidemia Father Heart disease Neoplasm Sister No problems noted. Sister No problems noted. Brother No problems noted. Brother No problems noted. Grandfather Stroke Grandfather Heart disease Grandmother Heart disease Grandmother Stroke Son Diabetes Essential hypertension Daughter No problems noted. Social History Smoking/Tobacco Use Status: Former Tobacco Use Alcohol Intake: never Drug use: Never Do you feel safe at home: Yes Do you feel safe in your relationship?: Yes Exam Narrative Exam Narrative: Jackie is sitting in the side of the bed. She smiles looks me in the eye. She speaks in complete sentences. Const General: cooperative, comfortable and no acute distress Nutritional Appearance: average body habitus Orientation: oriented x3 HENMT Head: normal to inspection Teeth and gingiva: dentures Eyes General: appearance normal, both eyes and all related structures Neck Lymphatic: no lymphadenopathy noted Resp Effort & Inspection: normal respiratory effort and able to speak in complete sentences Auscultation: wheezes Cardio Rate: tachycardic GI Palpation: soft and no hepatosplenomegaly Psych Appearance: grossly normal Mental Status: mental status grossly normal Speech and Movement: speech and movement normal Mood: congruent mood Affect: normal affect Attitude: cooperative Thought Process: normal Thought Content: normal Results Last Vital Signs Temp 99.0 F 02/05/19 15:57 Pulse 90 02/05/19 15:56 Resp 29 H 02/05/19 15:01 BP 135/64 02/05/19 15:01 Pulse Ox 92 L 02/05/19 15:57 Labs : 02/05/19 06:10 02/05/19 06:10 Laboratory Results - last 24 hr 02/05/19 02/05/19 02/05/19 06:10 06:10 14:19 WBC 10.03 RBC 3.75 L Hgb 10.9 L Hct 36.3 MCV 96.8 H MCH 29.1 MCHC 30.0 L RDW 15.2 H Plt Count 293 MPV 8.9 Immature Gran % 0.3 Neutrophils % 91.7 Lymphocytes % 2.8 Monocytes % 5.2 Eosinophils % 0.0 Basophils % 0.0 Absolute Neutrophils 9.20 H Absolute Lymphocytes 0.28 L Absolute Monocytes 0.52 Absolute Eosinophils 0.00 Absolute Basophils 0.00 Sample Site Right radial pCO2 67 H* pO2 44 L O2 Saturation 81 L ABG pH 7.44 ABG HCO3 45 H ABG Total CO2 41 H FiO2 21 Sodium 136 Potassium 4.2 Chloride 95 L Carbon Dioxide 43.4 H Anion Gap -2.4 L BUN 22 H Creatinine 0.86 Estimated GFR/1.73 m2 >= 60.00 Glucose 116 H Calcium 8.7 Magnesium 2.0 Triglycerides 93 Total Cholesterol 205 H LDL Cholesterol Direct 89 HDL Cholesterol 87 H Patient Name: JACKIE WELLS #: [id number]: ICU Ordering Provider: Anne Snell DOAccount #: [id number]: ADM IN Primary Care Provider: Yazmin Yañez NPDate of Exam: 02/02/19Sex: F Admission Date: 02/02/19 : 1950 Age: 68 Exam(s) a RAD:XR portable chest AP SYMPTOM/DIAGNOSIS: CHEST PAIN, SOB PORTABLE AP CHEST at 0946 hours: The heart is not enlarged. The lungs appear clear and well expanded.
[2019-02-05] MEDS: Sodium Chloride-Nasal SPRAY-ADULT 44 ML BTL NS (21:13)
[2019-02-05 21:50] LABS: Troponin I < 0.02 ng/mL (0.00-0.06)
[2019-02-05] MEDS: Acetaminophen 325 MG TAB PO (23:41)
[2019-02-06] VITALS (13 sets, daily range): BP systolic 122–143; BP diastolic 62–81; PULSE 77–103; RESP 5–33; TEMP 36.2–37.2; O2SAT 84–98
[2019-02-06] MEDS: PIPERACILLIN/TAZO 3.375 GM in Normal Saline 50 ML IVPB ×3 (04:00→20:27)
[2019-02-06] MEDS: Normal Saline Flush 10 ML SYR IVP ×4 (04:00→20:32)
[2019-02-06] MEDS: Ipratropium 0.5 MG/2.5 ML UPD VIAL UPD ×4 (05:59→23:38)
[2019-02-06 07:30] LABS: Abs Immature Grans 0.02 k/cumm (0.0-0.09); Absolute Lymphocyte Count 0.33 k/cumm (1.2-3.4); Absolute Monocyte Count 0.69 k/cumm (0.11-0.7); Absolute Neutrophil Count 8.24 k/cumm (1.2-6.7); HCT 37.6 % (36.0-46.0); HGB 11.1 g/dL (12.0-15.5); Immature Grans % 0.2; Lymphocytes % 3.6; Mean Corp. HGB Concentration 29.5 g/dL (32.0-36.0); Mean Corpuscular Hemoglobin 28.8 pg (27.0-33.0); Mean Corpuscular Volume 97.4 fL (80-95); Mean Platelet Volume 9.2 fL (8.0-11.0); Monocytes % 7.4; Neutrophils % 88.8; Platelet Count 321 x1000/uL (130-400); RBC 3.86 m/cumm (4.00-5.20); RBC Distribution Width 15.1 % (11.7-14.6); White Blood Cell Count 9.28 k/cumm (4.4-10.8)
[2019-02-06 07:48] LABS: Anion Gap -0.7 mmol/L (3-11); BUN 29 mg/dL (7-18); CO2 44.7 mmol/L (21.0-32.0); CREATININE 0.82 mg/dL (0.55-1.02); Calcium 8.9 mg/dL (8.5-10.1); Chloride 94 mmol/L (98-107); Glucose 105 mg/dL (70-100); Magnesium 2.1 mg/dL (1.8-2.4); Sodium 138 mmol/L (136-145)
[2019-02-06] MEDS: Aspirin 81 MG CHEW 162 MG PO (08:04)
[2019-02-06] MEDS: Pantoprazole 40 MG TABCR PO (08:04)
[2019-02-06] MEDS: Furosemide 40 MG/4 ML VIAL IVP ×2 (08:04→16:04)
[2019-02-06] MEDS: Metoprolol 25 MG TAB PO ×2 (08:05→20:28)
[2019-02-06] MEDS: Montelukast 10 MG TAB PO (08:05)
--- NOTE | 2019-02-06 08:12 | PGE_ITS ---
Date of Service Date of service: 02/06/19 Time of Service: 08:11 Assessment and Plan (1) Acute on chronic respiratory failure with hypoxia and hypercapnia: Current visit: Yes Status: Acute Multifactorial, due to both acute exacerbation of COPD (or one that failed outpatient therapy) as well as Acute on chronic diastolic CHF. Improvement has plateaued. Reintroduce vancomycin, continue zosyn. Today's CXR actually has evidence of PNA - which I trust the patient had on admission, but had not yet shown an infiltrate on original imaging. The patient, given her frequent COPD exacerbations and evidence of acute on chronic hypoxic hypercapnic respiratory failure, would strongly benefit from NIV. She has been admitted to the hospital twice in less than once month and has failed outpatient therapy for yet another COPD exacerbation in the interim. All of her ABGs on this admission reveal hypercapnia with pCO2 of 67-77. She does not have a diagnosis of obstructive sleep apnea. BiPAP was tried and failed and was difficult for the patient to tolerate. However, she would greatly benefit from NIV therapy at home to prevent recurrences of COPD exacerbations and prevent readmissions. (2) Acute exacerbation of chronic obstructive pulmonary disease (COPD): Current visit: Yes Status: Acute Failed outpatient tx. Does have PNA on today's CXR Continue zosyn. Add vancomycin. Continue the use of IS and acapella. Wean steroids. Continue nebs, antitussives. Wean O2 as tolerated. (3) Acute on chronic diastolic CHF (congestive heart failure): Current visit: Yes Status: Acute Continue IV lasix. Evidence of pleural effusion on today's CXR. (4) Chest discomfort: Current visit: Yes Status: Acute Negative nuclear stress test yesterday. I suspect the patient might be having esophageal spasms. Will trial calcium channel blockers. Ok to use prn nitroglycerin as well. Tele d/c'ed. (5) GERD (gastroesophageal reflux disease): Current visit: No Status: Chronic Continue home PPI (6) Hypomagnesemia: Current visit: Yes Status: Acute Repleted (7) Discharge planning issues: Current visit: No Status: Acute Met with palliative care - code status changed to DNR/DNI. PT/OT consulted Would strongly benefit from NIV as outpatient. (8) DVT prophylaxis: Current visit: No Status: Acute Lovenox Subjective Interval history since last seen: Afebrile, in NSR, no bouts of SVT or CP. Nursing continues to report crackles, wheezing. Down on 3L of O2, saturating 89- 94%. The patient states that the breathing is a little bit better. Complains of a little bit of dizziness/lightheadedness this morning. Denies chest pain, nausea, vomiting. Exam Narrative Exam Narrative: General: Middle-aged female, A&Ox3, no tachypnea HEENT: EOMI, MMM, no JVD Cardiovascular: RRR, quiet KRYSTA Lungs: Diminished breath sounds B, crackles only heard at the left midlung today Gastrointestinal: abdomen is soft, nontender, nondistended Genitourinary: has a doll Extremities: trace edema BLE's, no clubbing or cyanosis, 1+ pedal pulses B Objective Objective Clinical Data: Abnormal lab results 02/05/19 02/05/19 02/06/19 Range/Units 06:10 14:19 06:25 RBC (4.00-5.20) m/cumm Hgb (12.0-15.5) g/dL MCV (80-95) fL MCHC (32.0-36.0) g/dL RDW (11.7-14.6) % Absolute Neutrophils (1.2-6.7) k/cumm Absolute Lymphocytes (1.2-3.4) k/cumm pCO2 67 H* (34-47) mmHg pO2 44 L (83-108) mmHg O2 Saturation 81 L (94-98) % ABG HCO3 45 H (22-28) mmol/L ABG Total CO2 41 H (22-29) mmol/L Chloride 95 L 94 L (98-107) mmol/L Carbon Dioxide 43.4 H 44.7 H (21.0-32.0) mmol/L Anion Gap -2.4 L -0.7 L (3-11) mmol/L BUN 22 H 29 H (7-18) mg/dL Glucose 116 H 105 H (70-100) mg/dL Total Cholesterol 205 H (50-200) mg/dL HDL Cholesterol 87 H (40-60) mg/dL 02/06/19 Range/Units 06:25 RBC 3.86 L (4.00-5.20) m/cumm Hgb 11.1 L (12.0-15.5) g/dL MCV 97.4 H (80-95) fL MCHC 29.5 L (32.0-36.0) g/dL RDW 15.1 H (11.7-14.6) % Absolute Neutrophils 8.24 H (1.2-6.7) k/cumm Absolute Lymphocytes 0.33 L (1.2-3.4) k/cumm pCO2 (34-47) mmHg pO2 (83-108) mmHg O2 Saturation (94-98) % ABG HCO3 (22-28) mmol/L ABG Total CO2 (22-29) mmol/L Chloride (98-107) mmol/L Carbon Dioxide (21.0-32.0) mmol/L Anion Gap (3-11) mmol/L BUN (7-18) mg/dL Glucose (70-100) mg/dL Total Cholesterol (50-200) mg/dL HDL Cholesterol (40-60) mg/dL Vital Signs Temperature 36.2 C L 02/06/19 04:08 Temperature Source Tympanic 02/06/19 04:08 Pulse 79 02/06/19 03:59 Pulse Rhythm Regular 02/05/19 23:32 Pulse 84 02/06/19 03:59 Respiratory Rate 20 02/06/19 03:59 Respiratory Effort 02/05/19 23:32 Respiratory Depth Normal 02/05/19 23:32 Respiratory Pattern Normal 02/05/19 23:32 Blood Pressure 130/68 02/06/19 03:59 Blood Pressure Mean 82 02/06/19 03:59 Blood Pressure Position Supine 02/04/19 08:00 Pulse Oximetry 98 02/06/19 03:59 Oxygen Delivery Method Nasal Cannula 02/06/19 06:38 Oxygen Flow Rate 3 02/06/19 06:38 Fraction of Inspired Oxygen (FIO2) 39 02/04/19 08:00 Pain Level 5 02/05/19 23:41 Intake & Output 02/05/19 02/05/19 02/06/19 11:59 23:59 11:59 Intake Total 100 / 890 790 / 890 0 / 0 Output Total 1770 / 3055 1285 / 3055 150 / 150 Balance -1670 / -2165 -495 / -2165 -150 / -150 Weight 72.5 kg Intake: IV 100 / 250 150 / 250 0 / 0 Oral 640 / 640 Output: Urine 1770 / 3055 1285 / 3055 150 / 150 Other: Urine Color Pale Yellow Yellow Yellow Urine Appearance Clear Clear Clear Urine Odor Normal None Comment Mixed with stool. mixed with BM Stool Occult Blood Negative Stool Size Small Small Small Stool Characteristics Soft Soft Soft Liquid Voiding Methods Bedside Commode Bedside Commode Laboratory Results WBC 9.28 k/cumm (4.4-10.8) 02/06/19 06:25 RBC 3.86 m/cumm (4.00-5.20) L 02/06/19 06:25 Hgb 11.1 g/dL (12.0-15.5) L 02/06/19 06:25 Hct 37.6 % (36.0-46.0) 02/06/19 06:25 MCV 97.4 fL (80-95) H 02/06/19 06:25 MCH 28.8 pg (27.0-33.0) 02/06/19 06:25 MCHC 29.5 g/dL (32.0-36.0) L 02/06/19 06:25 RDW 15.1 % (11.7-14.6) H 02/06/19 06:25 Plt Count 321 x1000/uL (130-400) 02/06/19 06:25 MPV 9.2 fL (8.0-11.0) 02/06/19 06:25 Immature Gran % 0.2 02/06/19 06:25 Neutrophils % 88.8 02/06/19 06:25 Lymphocytes % 3.6 02/06/19 06:25 Monocytes % 7.4 02/06/19 06:25 Eosinophils % 0.0 02/06/19 06:25 Basophils % 0.0 02/06/19 06:25 Absolute Neutrophils 8.24 k/cumm (1.2-6.7) H 02/06/19 06:25 Absolute Lymphocytes 0.33 k/cumm (1.2-3.4) L 02/06/19 06:25 Absolute Monocytes 0.69 k/cumm (0.11-0.7) 02/06/19 06:25 Absolute Eosinophils 0.00 k/cumm (0.0-0.7) 02/06/19 06:25 Absolute Basophils 0.00 k/cumm (0.0-0.2) 02/06/19 06:25 Sample Site Right radial 02/05/19 14:19 pCO2 67 mmHg (34-47) H* 02/05/19 14:19 pO2 44 mmHg (83-108) L 02/05/19 14:19 O2 Saturation 81 % (94-98) L 02/05/19 14:19 ABG pH 7.44 (7.35-7.45) 02/05/19 14:19 ABG HCO3 45 mmol/L (22-28) H 02/05/19 14:19 ABG Total CO2 41 mmol/L (22-29) H 02/05/19 14:19 ABG Base Excess 9.9 mmol/L (-3-3) H 02/02/19 14:58 VBG pH 7.35 (7.32-7.43) 02/03/19 12:56 VBG pCO2 78 mm/Hg (34-47) H 02/03/19 12:56 VBG pO2 26 mm/Hg (28-44) L 02/03/19 12:56 VBG HCO3 43 mmol/L (22-28) H 02/03/19 12:56 VBG Total CO2 40 mmol/L (22-29) H 02/03/19 12:56 VBG O2 Saturation 45 % (70-80) L 02/03/19 12:56 VBG Base Excess mmol/L (-3-3) 02/03/19 12:56 Oxygen Liter Flow 4 L 02/02/19 14:58 FiO2 21 % 02/05/19 14:19 Sodium 138 mmol/L (136-145) 02/06/19 06:25 Potassium 4.0 mmol/L (3.5-5.1) 02/06/19 06:25 Chloride 94 mmol/L (98-107) L 02/06/19 06:25 Carbon Dioxide 44.7 mmol/L (21.0-32.0) H 02/06/19 06:25 Anion Gap -0.7 mmol/L (3-11) L 02/06/19 06:25 BUN 29 mg/dL (7-18) H 02/06/19 06:25 Creatinine 0.82 mg/dL (0.55-1.02) 02/06/19 06:25 Estimated GFR/1.73 m2 >= 60.00 (mL/min/1.73m2) 02/06/19 06:25 Glucose 105 mg/dL (70-100) H 02/06/19 06:25 Calcium 8.9 mg/dL (8.5-10.1) 02/06/19 06:25 Magnesium 2.1 mg/dL (1.8-2.4) 02/06/19 06:25 Total Bilirubin 0.4 mg/dL (0.2-1.0) 02/02/19 09:10 AST 15 U/L (15-37) 02/02/19 09:10 ALT 41 U/L (12-78) 02/02/19 09:10 Alkaline Phosphatase 101 U/L (46-116) 02/02/19 09:10 Troponin I < 0.02 ng/mL (0.00-0.06) 02/05/19 21:10 NT-Pro-B Natriuret Pep 659 pg/mL (-299) H 02/02/19 09:10 Total Protein 7.7 g/dL (6.4-8.2) 02/02/19 09:10 Albumin 3.7 g/dL (3.4-5.0) 02/02/19 09:10 Triglycerides 93 mg/dL (30-150) 02/05/19 06:10 Total Cholesterol 205 mg/dL (50-200) H 02/05/19 06:10 LDL Cholesterol Direct 89 mg/dL (<100) 02/05/19 06:10 HDL Cholesterol 87 mg/dL (40-60) H 02/05/19 06:10 Vancomycin Trough 19.4 ug/mL (10.0-20.0) 02/04/19 13:00 CXR: Findings raising the possibility of new left pleural effusion and/or left lower lobe patchy consolidation. Appropriate follow up studies requested. The findings are suspicious for acute pneumonia. Nuclear stress test: Normal perfusion and contraction by [id number] Sestamibi [facility]. Summary: 1. Myocardial perfusion imaging: No myocardial perfusion defects noted. 2. The calculated left ventricular ejection fraction after stress: 75%. LV global systolic function is normal. No left ventricular regional motion abnormality. 3. Stress ECG conclusions: The stress ECG is negative. 4. Stress: There is resting hypertension with a hypertensive response to stress. Stress-induced atypical chest pain.
--- NOTE | 2019-02-06 08:18 | OT.INDS ---
Date of service: 02/06/19 Time of Service: 07:55 Occupational Therapy Notes Occupational Therapy Inpatient Discharge Summary Date: 02/06/19 Dates of Service: 02/04/19-02/06/19 Referring Doctor: Angelina Chino MD OT Orders: Eval and Treat Precautions: Fall, Standard PATIENT PROFILE/ADMITTING DIAGNOSIS: Pt is a 68 year old female who was admitted through the ER for acute CHF, acute COPD, pneumonia, IA, dissection. Past Medical History: Medical History Arthritis (Acute 02/10/13) CVA (cerebral vascular accident) (Acute 02/10/13) Chronic obstructive lung disease (Acute) Fatigue (Acute 02/10/13) Osteoporosis (Acute 01/14/08) Discharge planning issues (Acute) Tachycardia (Acute) DVT prophylaxis (Acute) CAP (community acquired pneumonia) (Acute) HTN (hypertension) (Chronic) GERD (gastroesophageal reflux disease) (Chronic) COPD (chronic obstructive pulmonary disease) (Chronic) GERD (gastroesophageal reflux disease) (Chronic) HTN (hypertension) (Chronic) Surgical History Endoscopic Carpal Tunnel release (03/31/13) Social History/Home Situation: 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 She reports that prior to admission she was totally (I) with all ADLs/IADLs. She states that she enjoys spending her free time splitting and stacking firewood. Equipment owned/DME: None- OT recommends a shower chair. SUBJECTIVE: Pt was sitting on side of bed when OT arrived. She was agreeable to OT session. OBJECTIVE: Mental Status: A&Ox3 Pain: no c/o pain ROM: RUE AROM WFL L UE AROM WFL STRENGTH: RUE 4+/5 throughout globally LUE 4+/5 throughout globally FUNCTIONAL MOBILITY/ADLS: Transfers Supine-sit (I) Sit-supine (I) Sit-Stand (S) Stand-sit (S) Pivot transfer to commode (S) BATHING Sitting on side of the bed with max (A) set up (I) DRESSING Sitting on side of bed (I) [facility] gown and (B) socks. Dates of Service: 02/04/19-02/06/19 GROOMING standing at sink with FWW (I) with brushing teeth and hair TOILETING On commode (I) EATING (I) BALANCE: Static sitting Normal Dynamic Sitting Normal Static Standing Good Dynamic Standing Good ASSESSMENT: Patient is a 68-year-old female referred to occupational therapy services with diagnosis of acute CHF, acute COPD, pneumonia, IA, dissection. Pt was seen for 3 skilled OT services. She has demonstrated increased (I) in ADL/IADL routines. Pt is able to perform ADLs with limitations in her breathing at times. Pt does not feel that she needs OT services as she is able to perform her ADLs in sitting (I). GOALS- ALL GOALS MET UNLESS SPECIFIED 1. Transfers (I)- progressing towards with PT 2. Dressing (I) 3. Bathing (I) sitting in chair 4. Toileting (I) on toilet 5. Eating (I) 6. Grooming (I) standing at sink PLAN OF CARE/TREATMENT PLAN: 1x/day, 5 days/ week x 1week Initiate Occupational Therapy Services for bathing, dressing, grooming, toileting, eating, transfer training. DISCHARGE RECOMMENDATIONS Home with HH services OT recommends a shower chair to increase pts safety in bathing routine. TREATMENT TIME/MINUTES/CODES 09645, 15 minutes (07:50) [facility]
--- NOTE | 2019-02-06 08:24 | OTDS_ITS ---
Date of service: 02/06/19 Time of Service: 07:55 Occupational Therapy Notes Occupational Therapy Inpatient Discharge Summary Date: 02/06/19 Dates of Service: 02/04/19-02/06/19 Referring Doctor: Angelina Chino MD OT Orders: Eval and Treat Precautions: Fall, Standard PATIENT PROFILE/ADMITTING DIAGNOSIS: Pt is a 68 year old female who was admitted through the ER for acute CHF, acute COPD, pneumonia, MT, dissection. Past Medical History: Medical History Arthritis (Acute 02/10/13) CVA (cerebral vascular accident) (Acute 02/10/13) Chronic obstructive lung disease (Acute) Fatigue (Acute 02/10/13) Osteoporosis (Acute 01/14/08) Discharge planning issues (Acute) Tachycardia (Acute) DVT prophylaxis (Acute) CAP (community acquired pneumonia) (Acute) HTN (hypertension) (Chronic) GERD (gastroesophageal reflux disease) (Chronic) COPD (chronic obstructive pulmonary disease) (Chronic) GERD (gastroesophageal reflux disease) (Chronic) HTN (hypertension) (Chronic) Surgical History Endoscopic Carpal Tunnel release (03/31/13) Social History/Home Situation: 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 She reports that prior to admission she was totally (I) with all ADLs/IADLs. She states that she enjoys spending her free time splitting and stacking firewood. Equipment owned/DME: None- OT recommends a shower chair. SUBJECTIVE: Pt was sitting on side of bed when OT arrived. She was agreeable to OT session. OBJECTIVE: Mental Status: A&Ox3 Pain: no c/o pain ROM: RUE AROM WFL L UE AROM WFL STRENGTH: RUE 4+/5 throughout globally LUE 4+/5 throughout globally FUNCTIONAL MOBILITY/ADLS: Transfers Supine-sit (I) Sit-supine (I) Sit-Stand (S) Stand-sit (S) Pivot transfer to commode (S) BATHING Sitting on side of the bed with max (A) set up (I) DRESSING Sitting on side of bed (I) [facility] gown and (B) socks. Dates of Service: 02/04/19-02/06/19 GROOMING standing at sink with FWW (I) with brushing teeth and hair TOILETING On commode (I) EATING (I) BALANCE: Static sitting Normal Dynamic Sitting Normal Static Standing Good Dynamic Standing Good ASSESSMENT: Patient is a 68-year-old female referred to occupational therapy services with diagnosis of acute CHF, acute COPD, pneumonia, MT, dissection. Pt was seen for 3 skilled OT services. She has demonstrated increased (I) in ADL/IADL routines. Pt is able to perform ADLs with limitations in her breathing at times. Pt does not feel that she needs OT services as she is able to perform her ADLs in sitting (I). GOALS- ALL GOALS MET UNLESS SPECIFIED 1. Transfers (I)- progressing towards with PT 2. Dressing (I) 3. Bathing (I) sitting in chair 4. Toileting (I) on toilet 5. Eating (I) 6. Grooming (I) standing at sink PLAN OF CARE/TREATMENT PLAN: 1x/day, 5 days/ week x 1week Initiate Occupational Therapy Services for bathing, dressing, grooming, toileting, eating, transfer training. DISCHARGE RECOMMENDATIONS Home with HH services OT recommends a shower chair to increase pts safety in bathing routine. TREATMENT TIME/MINUTES/CODES 79910, 15 minutes (07:50) [facility]
--- NOTE | 2019-02-06 08:45 | DI.RAD_ITS ---
SYMPTOM/DIAGNOSIS: F/U CHF EXACERBATION, R/O PNA PORTABLE AP CHEST : 02/06 The heart is not enlarged. The right lung is clear. There is interval development of blunting of the costophrenic angle on the left with question of minimal streaky intrapulmonary densities since the previous chest film of 02/02/2019. CONCLUSION: Findings raising the possibility of new left pleural effusion and/or left lower lobe patchy consolidation. Appropriate follow up studies requested. The findings are suspicious for acute pneumonia.
--- NOTE | 2019-02-06 09:39 | CMPROGNOTE_ITS ---
- If Service Date Differs Date of service: 02/06/19 Time of Service: 09:33 Care Management Progress Note S/O: CM met with Jackie at the bedside she is sitting on the side of the bed alert and engaged. She states she would be willing to try non invasive ventilation support (NIV) at home if she qualifies. Per review with provider and at interdisciplinary rounds: given her frequent COPD exacerbations and evidence of acute on chronic hypoxic hypercapnic respiratory failure, would strongly benefit from NIV.She has been admitted to the hospital twice in less than once month and has failed outpatient therapy for yet another COPD exacerbation in the interim. All of her ABGs on this admission reveal hypercapnia with pCO2 of 67-77. She does not have a diagnosis of obstructive sleep apnea. BiPAP was tried and failed and was difficult for the patient to tolerate. However, she would greatly benefit from NIV therapy at home to prevent recurrences of COPD exacerbations and prevent readmissions.[place] [facility] today to completed assessment and review qualification for the device. Jackie continues to need oxygen which is not her baseline. She remains on IV steroids and antibiotics. A:Jackie is a 68 year old female admitted with pneumonia, and CHF P: Jackie will be discharged home when medically ready per provider. RT is assisting with obtaining a NIV for at home use. She declines any home health services. She will transport home via private car with family at time of discharge. Palliative care will be notified of discharge to continue follow up as outpatient.
[2019-02-06] MEDS: methylPREDNISolone SUCC 40 MG VIAL IVP ×2 (10:27→22:34)
--- NOTE | 2019-02-06 10:31 | PT.INTREAT ---
Date of service: 02/06/19 Time of Service: 10:31 PT Notes 02/06/19 SUBJECTIVE: Jackie stating she is feeling better. She needs to use the commode. OBJECTIVE: Pt agreeable to PT treatment. Nursing in the process of moving her to the floor. TRANSFERS Sit to stand: I Stand to sit: I GAIT Device: FWW Weight bearing: Full Assist: S Distance: 20'+30' Deviation: 1 sit rest break VITALS: Sa02 90-94% throughout, HR 89-90 b/m ASSESSMENT: Pt progressing well with her mobility with good maintenance of oxygen saturation today on 4 L NC. Pt will be moving to the Medical/Surgical floor this AM. PLAN: Continue 1x per day progressing toward's established goals. Treatment time: 20 minutes [id number] Gauri Tipton, SENIOR [employer] ADMINISTRATOR
--- NOTE | 2019-02-06 10:35 | PTTR_ITS ---
Date of service: 02/06/19 Time of Service: 10:31 PT Notes 02/06/19 SUBJECTIVE: Jackie stating she is feeling better. She needs to use the commode. OBJECTIVE: Pt agreeable to PT treatment. Nursing in the process of moving her to the floor. TRANSFERS Sit to stand: I Stand to sit: I GAIT Device: FWW Weight bearing: Full Assist: S Distance: 20'+30' Deviation: 1 sit rest break VITALS: Sa02 90-94% throughout, HR 89-90 b/m ASSESSMENT: Pt progressing well with her mobility with good maintenance of oxygen saturation today on 4 L NC. Pt will be moving to the Medical/Surgical floor this AM. PLAN: Continue 1x per day progressing toward's established goals. Treatment time: 20 minutes [id number] Gauri Tipton, MEDICAL PSYCHOTHERAPIST
[2019-02-06] MEDS: Budesonide/Formoterol 160/4.5 6 GM 60 PUFF INH IH ×2 (11:03→20:28)
[2019-02-06] MEDS: Enoxaparin 40 MG/0.4 ML SYR SC (16:05)
[2019-02-06] MEDS: Sodium Chloride-Nasal SPRAY-ADULT 44 ML BTL NS (18:44)
[2019-02-06] MEDS: dilTIAZem 30 MG TAB PO (22:37)
[2019-02-06] MEDS: Acetaminophen 325 MG TAB PO (23:38)
[2019-02-07] VITALS (12 sets, daily range): BP systolic 120–166; BP diastolic 74–84; PULSE 78–87; RESP 2–20; TEMP 36.6–37.1; O2SAT 92–96
[2019-02-07] MEDS: VANCOMYCIN 1,250 MG in Normal Saline 250 ML 250 MG IV (02:40)
[2019-02-07] MEDS: PIPERACILLIN/TAZO 3.375 GM in Normal Saline 50 ML IVPB ×3 (04:04→20:06)
[2019-02-07] MEDS: dilTIAZem 30 MG TAB PO ×3 (05:38→22:10)
[2019-02-07] MEDS: Ipratropium 0.5 MG/2.5 ML UPD VIAL UPD ×4 (05:38→23:37)
[2019-02-07 06:26] LABS: Anion Gap 1.3 mmol/L (3-11); BUN 34 mg/dL (7-18); CO2 43.7 mmol/L (21.0-32.0); CREATININE 0.91 mg/dL (0.55-1.02); Calcium 9.2 mg/dL (8.5-10.1); Chloride 91 mmol/L (98-107); Glucose 123 mg/dL (70-100); Magnesium 2.1 mg/dL (1.8-2.4); Potassium 4.2 mmol/L (3.5-5.1); Sodium 136 mmol/L (136-145)
[2019-02-07 06:27] LABS: Basophils % 0.1; HGB 12.6 g/dL (12.0-15.5); Immature Grans % 0.4; Mean Corp. HGB Concentration 30.7 g/dL (32.0-36.0); Mean Corpuscular Hemoglobin 29.3 pg (27.0-33.0); Mean Corpuscular Volume 95.3 fL (80-95); Mean Platelet Volume 9.4 fL (8.0-11.0); Monocytes % 6.2; Neutrophils % 89.3; Platelet Count 309 x1000/uL (130-400); RBC Distribution Width 14.9 % (11.7-14.6)
[2019-02-07 06:28] LABS: Abs Immature Grans 0.04 k/cumm (0.0-0.09); Absolute Basophil Count 0.01 k/cumm (0.0-0.2); Absolute Lymphocyte Count 0.37 k/cumm (1.2-3.4); Absolute Monocyte Count 0.58 k/cumm (0.11-0.7)
[2019-02-07] MEDS: Montelukast 10 MG TAB PO (07:43)
[2019-02-07] MEDS: Pantoprazole 40 MG TABCR PO (07:43)
[2019-02-07] MEDS: Metoprolol 25 MG TAB PO ×2 (07:43→20:05)
[2019-02-07] MEDS: Furosemide 40 MG/4 ML VIAL IVP ×2 (07:43→15:22)
[2019-02-07] MEDS: Aspirin 81 MG CHEW 162 MG PO (07:43)
[2019-02-07] MEDS: Normal Saline Flush 10 ML SYR IVP ×4 (07:43→20:06)
[2019-02-07] MEDS: Budesonide/Formoterol 160/4.5 6 GM 60 PUFF INH IH ×2 (07:56→20:06)
[2019-02-07] MEDS: methylPREDNISolone SUCC 40 MG VIAL IVP ×2 (09:28→22:10)
[2019-02-07] MEDS: Acetaminophen 325 MG TAB PO ×2 (11:02→20:26)
[2019-02-07] MEDS: Milk of Magnesia 30 ML CUP PO (11:02)
--- NOTE | 2019-02-07 12:28 | PT.INTREAT ---
Date of service: 02/07/19 Time of Service: 12:29 PT Notes Inpatient Physical Therapy Treatment Note [facility] Date: 02/07/2019 PRECAUTIONS: Monitor SaO2 SUBJECTIVE: Jackie states that she is not feeling well today, stating that she is feeling more dizzy than usual. OBJECTIVE: PAIN: No complaints of pain BED MOBILITY/TRANSFERS Sit-stand: I Stand-sit: I GAIT Assistive Device: FWW Weight bearing: Full Assist: S Distance: 20' x2 Static standing x4 minutes due to dizziness/SOB with gait training. VITALS: SaO2: 84-92% on 4L O2 via NC throughout session TOILETING: Patient toileted independently ASSESSMENT: Patient tolerated session with complaints of increased dizziness and SOB with gait training. Patient was able to tolerate gait training although did demonstrate a drop in oxygen saturation to 84%. Patient requested to hold further PT due to dizziness. PLAN: Continue with PTs POC TREATMENT CODE/TIME: 20 minutes; [id number]
[2019-02-07] MEDS: Docusate Sodium 100 MG CAP PO (12:49)
--- NOTE | 2019-02-07 15:09 | PGE_ITS ---
Date of Service Date of service: 02/07/19 Time of Service: 15:06 Assessment and Plan (1) Acute on chronic respiratory failure with hypoxia and hypercapnia: Current visit: Yes Status: Acute Multifactorial, due to both acute exacerbation of COPD (failed outpatient therapy) as well as Acute on chronic diastolic CHF. Currently also with evidence of new infiltrate after 4 days of hospitalization, although clinically suspected initially. Continue Pip-Tazo day #5, Vancomycin #1, steroid therapy, nebs, and diuretics. The patient, given her frequent COPD exacerbations and evidence of acute on chronic hypoxic hypercapnic respiratory failure, would strongly benefit from NIV. (2) Acute exacerbation of chronic obstructive pulmonary disease (COPD): Current visit: Yes Status: Acute Failed outpatient therapy. Continue antibiotics, steroids, and nebs as a nina. (3) Acute on chronic diastolic CHF (congestive heart failure): Current visit: Yes Status: Acute Continue but decrease IV Furosemide, with plans to transition to oral soon. Monitor daily weights and renal function carefully. (4) Chest discomfort: Current visit: Yes Status: Acute Appears likely nonischemic, with negative Nuclear stress test. Potential for esophageal spasm by prior evaluation, with patient initiated on short-acting Dilt. Will reevaluate symptoms. (5) GERD (gastroesophageal reflux disease): Current visit: No Status: Chronic Continue PPI therapy. (6) HTN (hypertension): Current visit: No Status: Chronic Continue BB, with amlodipine on hold in favor of short-acting Diltiazem as above. Qualifiers: Hypertension type: essential hypertension Qualified Code(s): I10 - Essential (primary) hypertension (7) DVT prophylaxis: Current visit: No Status: Acute SC Enoxaparin. (8) Advance directive discussed with patient: Current visit: Yes Status: Acute DNR/DNI. Subjective Interval history since last seen: 68 year old woman with a prior history of COPD, admitted from [facility] on 02/02 with an initial diagnosis of COPD exacerbation. Mrs. Myers has a history of non-oxygen depended COPD, Diastolic CHF, and GERD. She was recently hospitalized and treated for Pneumonia in mid December. The patient was treated with Azithromycin and Ceftriaxone during her hospitalization, transitioned to oral Cefpodoxime and Azithromycin at time of discharge. She was then initiated on Levofloxacin by her PCP on 01/27 for worsening dyspnea, and despite treatment has been getting progressively worse, leading to her presentation to the ED. Work-up initially showed the patient to be hypoxic with oxygen sats in the 60's on room air, along with tachypnea, originally requiring BiPAP therapy. She was also noted to be acutely hypercapneic, and found to be in a degree of CHF. At that time she was referred for admission for further evaluation and treatment. Although the patient's original CXR was negative, a repeat test performed on 02/06 showed evidence of a new left pleural effusion vs. LLL lobe patchy consolidation suspicious for pneumonia, per radiology read. Her chest pain was worked up with a nuclear stress test interpreted as negative for ischemia. She has been maintained on broad spectrum antibiotics, with culture data unrevealing. She has also been diuresed, and feels improved this morning. No other events reported. Remains afebrile. Exam Narrative Exam Narrative: General: Patient appears comfortable, AAOX3, NAD Neck: Supple CV: Regular, nontachycardic, S1S2, No rubs, murmurs, or gallops. Pulmonary: Clear to auscultation bilaterally, no crackles, wheezing, or rhonchi Abdomen: + Bowel Sounds, soft, nontender, nondistended Vascular: No lower extremity edema Psych: Normal mood and affect. Objective Objective Clinical Data: Abnormal lab results 02/07/19 02/07/19 Range/Units 06:01 06:01 MCV 95.3 H (80-95) fL MCHC 30.7 L (32.0-36.0) g/dL RDW 14.9 H (11.7-14.6) % Absolute Neutrophils 8.30 H (1.2-6.7) k/cumm Absolute Lymphocytes 0.37 L (1.2-3.4) k/cumm Chloride 91 L (98-107) mmol/L Carbon Dioxide 43.7 H (21.0-32.0) mmol/L Anion Gap 1.3 L (3-11) mmol/L BUN 34 H (7-18) mg/dL Glucose 123 H (70-100) mg/dL Vital Signs Temperature 36.8 C 02/07/19 11:35 Temperature Source Tympanic 02/07/19 11:35 Pulse 87 02/07/19 11:35 Pulse Rhythm Regular 02/07/19 07:37 Pulse 92 H 02/06/19 07:44 Respiratory Rate 20 02/07/19 11:35 Respiratory Effort Short of Breath 02/07/19 07:37 Respiratory Depth Normal 02/07/19 07:37 Respiratory Pattern Normal 02/07/19 07:37 Blood Pressure 166/84 H 02/07/19 11:35 Blood Pressure Mean 78 02/06/19 07:44 Blood Pressure Position Supine 02/04/19 08:00 Pulse Oximetry 92 L 02/07/19 11:35 Oxygen Delivery Method Room Air 02/07/19 11:35 Oxygen Flow Rate 0 02/07/19 11:35 Fraction of Inspired Oxygen (FIO2) 39 02/04/19 08:00 Pain Level 2 02/07/19 11:35 Intake & Output 02/06/19 02/07/19 02/07/19 23:59 11:59 23:59 Intake Total 530 / 886 750 / 990 240 / 990 Output Total 650 / 650 Balance 530 / -114 100 / 340 240 / 340 Weight 73.2 kg Intake: IV 50 / 120 390 / 390 Oral 480 / 766 360 / 600 240 / 600 Output: Urine 650 / 650 Other: Urine Color Yellow Yellow Urine Appearance Clear Clear Urine Odor None Normal Comment Mixed with moderate, liquid/soft stool. No hat Stool Size Moderate Stool Characteristics Soft Liquid Brown Voiding Methods Bedside Commode Bedside Commode Laboratory Results WBC 9.30 k/cumm (4.4-10.8) 02/07/19 06:01 RBC 4.30 m/cumm (4.00-5.20) 02/07/19 06:01 Hgb 12.6 g/dL (12.0-15.5) 02/07/19 06:01 Hct 41.0 % (36.0-46.0) 02/07/19 06:01 MCV 95.3 fL (80-95) H 02/07/19 06:01 MCH 29.3 pg (27.0-33.0) 02/07/19 06:01 MCHC 30.7 g/dL (32.0-36.0) L 02/07/19 06:01 RDW 14.9 % (11.7-14.6) H 02/07/19 06:01 Plt Count 309 x1000/uL (130-400) 02/07/19 06:01 MPV 9.4 fL (8.0-11.0) 02/07/19 06:01 Immature Gran % 0.4 02/07/19 06:01 Neutrophils % 89.3 02/07/19 06:01 Lymphocytes % 4.0 02/07/19 06:01 Monocytes % 6.2 02/07/19 06:01 Eosinophils % 0.0 02/07/19 06:01 Basophils % 0.1 02/07/19 06:01 Absolute Neutrophils 8.30 k/cumm (1.2-6.7) H 02/07/19 06:01 Absolute Lymphocytes 0.37 k/cumm (1.2-3.4) L 02/07/19 06:01 Absolute Monocytes 0.58 k/cumm (0.11-0.7) 02/07/19 06:01 Absolute Eosinophils 0.00 k/cumm (0.0-0.7) 02/07/19 06:01 Absolute Basophils 0.01 k/cumm (0.0-0.2) 02/07/19 06:01 Sample Site Right radial 02/05/19 14:19 pCO2 67 mmHg (34-47) H* 02/05/19 14:19 pO2 44 mmHg (83-108) L 02/05/19 14:19 O2 Saturation 81 % (94-98) L 02/05/19 14:19 ABG pH 7.44 (7.35-7.45) 02/05/19 14:19 ABG HCO3 45 mmol/L (22-28) H 02/05/19 14:19 ABG Total CO2 41 mmol/L (22-29) H 02/05/19 14:19 ABG Base Excess mmol/L (-3-3) 02/05/19 14:19 VBG pH 7.35 (7.32-7.43) 02/03/19 12:56 VBG pCO2 78 mm/Hg (34-47) H 02/03/19 12:56 VBG pO2 26 mm/Hg (28-44) L 02/03/19 12:56 VBG HCO3 43 mmol/L (22-28) H 02/03/19 12:56 VBG Total CO2 40 mmol/L (22-29) H 02/03/19 12:56 VBG O2 Saturation 45 % (70-80) L 02/03/19 12:56 VBG Base Excess mmol/L (-3-3) 02/03/19 12:56 Oxygen Liter Flow 4 L 02/02/19 14:58 FiO2 21 % 02/05/19 14:19 Sodium 136 mmol/L (136-145) 02/07/19 06:01 Potassium 4.2 mmol/L (3.5-5.1) 02/07/19 06:01 Chloride 91 mmol/L (98-107) L 02/07/19 06:01 Carbon Dioxide 43.7 mmol/L (21.0-32.0) H 02/07/19 06:01 Anion Gap 1.3 mmol/L (3-11) L 02/07/19 06:01 BUN 34 mg/dL (7-18) H 02/07/19 06:01 Creatinine 0.91 mg/dL (0.55-1.02) 02/07/19 06:01 Estimated GFR/1.73 m2 >= 60.00 (mL/min/1.73m2) 02/07/19 06:01 Glucose 123 mg/dL (70-100) H 02/07/19 06:01 Calcium 9.2 mg/dL (8.5-10.1) 02/07/19 06:01 Magnesium 2.1 mg/dL (1.8-2.4) 02/07/19 06:01 Total Bilirubin 0.4 mg/dL (0.2-1.0) 02/02/19 09:10 AST 15 U/L (15-37) 02/02/19 09:10 ALT 41 U/L (12-78) 02/02/19 09:10 Alkaline Phosphatase 101 U/L (46-116) 02/02/19 09:10 Troponin I < 0.02 ng/mL (0.00-0.06) 02/05/19 21:10 NT-Pro-B Natriuret Pep 659 pg/mL (-299) H 02/02/19 09:10 Total Protein 7.7 g/dL (6.4-8.2) 02/02/19 09:10 Albumin 3.7 g/dL (3.4-5.0) 02/02/19 09:10 Triglycerides 93 mg/dL (30-150) 02/05/19 06:10 Total Cholesterol 205 mg/dL (50-200) H 02/05/19 06:10 LDL Cholesterol Direct 89 mg/dL (<100) 02/05/19 06:10 HDL Cholesterol 87 mg/dL (40-60) H 02/05/19 06:10 Vancomycin Trough 19.4 ug/mL (10.0-20.0) 02/04/19 13:00
[2019-02-07] MEDS: Enoxaparin 40 MG/0.4 ML SYR SC (15:22)
[2019-02-07] MEDS: VANCOMYCIN 750 MG in Normal Saline 250 ML 166.667 MG IVPB (15:22)
[2019-02-07] MEDS: Sodium Chloride-Nasal SPRAY-ADULT 44 ML BTL NS (15:30)
--- NOTE | 2019-02-07 16:59 | RESPIRATORY ---
Patient demonstrated ability to turn off and on the Astral machine as well as to deal with alarms. She was able to fit and adjust her face mask.
--- NOTE | 2019-02-07 17:59 | EVALE_ITS ---
Date of service: 02/07/19 Time of Service: 16:15 Speech Therapy Evaluation Note: REFERRING PROVIDER: Dr. Parikh BACKGROUND This is a 68 year old right-handed female who was admitted on 02/02/19 for tx of a COPD exacerbation and acute respiratory failure. An initial CXR showed no acute findings but a repeat CXR on 02/06/19 showed a possible L pleural effusion &/or LLL patchy consolidation. Today a swallow evaluation was requested to assess for aspiration risk. PMH: COPD, HTN, GERD, h/o CVA (02/10/13). The patient (pt) is able to provide additional background information regarding p.o. consistencies taken in the weeks prior to this admission. She states that she was taking what, by description, are Thin liuquids, a Regular consistency diet and whole pills with a liquid wash. OBJECTIVE Nursing reports: - T: 36.3 - O2 sat: 92% on 3 L via NC - LS: wheezy & diminished in the presence of ABX - Pt is currently on a Regular consistency diet, Thin liquids and whole pills with a liquid wash. The pt tolerated whole pills with a Thin liquid wash well today. The pt is about to start her supper meal but is willing to have me work with her. She greets me with good direct eye contact, a smile and an intelligible verbal greeting. She is able to converse well, showing both good topic maintenance & use of humor. She is A&O x 4 and able to follow 3-step directions. Oral Sensorimotor Exam The pt is partially edentulous on the bottom ridge in the posterior areas bilaterally and has a full upper denture (FUD). She denies any discomfort with either her teeth or the denture. The FUD shows excellent fit without the use of adhesive. She states she has had an FUD since she was 17 years old and had this denture made just 3-4 years ago. Oral sensation is WNL-B for buccal, labial & lingual areas. Motorically, the smile is symmetrical. Buccal & labial strength /coordination is WNL-B. No lingual deviation on protrusion is seen in a setting of good excursion. Lingual lateralization is WNL-B as are lingual rapid alternating movements. Lingual strength is WNL-B. Mandibular lateralization is WNL-B. Velopharyngeal elevation is strong & symmetrical. Volitional cough is strong. Speech intelligibility to this unfamiliar listener in a setting of mild background noise is 100%. Vocal quality & intensity are WNL. Swallowing - Thin liquids: Good bolus control & posterior oral transit (POT); no pietro signs/symptoms (s/s) of aspiration/penetration (A/P); oral clearance 100%; no oral escape. These results are true for both single & consecutive swallows by both cup & straw (including both large & small-bore straws). - Puree food: Good bolus control & linguopalatal bolus compression; POT WNL; no pietro s/s A/P; oral clearance 100%; no oral escape. - Mechanically Altered/Minced & Moist food: Good bolus control, mastication quality & POT; no pietro s/s A/P; oral clearance 100%; no oral escape. - Dysphagia Advanced/Soft & Bite-sized food: Results are the same as for MA/MM food. - modified Regular food: Results are the same as for MA/MM food. - Regular food: Good bolus control; use of appropriately increased mastication time which does result in good mastication quality; POT WNL; no pietro s/s A/P; oral clearance 100%; no oral escape. Pt is observed to independently self-feed using her dominant RUE and regular utensils. INTERPRETATION The pt shows no clinical signs of oropharyngeal dysphagia. Therefore, aspiration risk is felt to be minimal. RECOMMENDATIONS 1. Continue current p.o. consistencies: Thin liquids, a Regular consistency diet, whole pills with a liquid wash. 2. Continue independent self-feeding. 3. No speech therapy for swallowing is indicated at this time. Thank you for referring this pt.
--- NOTE | 2019-02-07 18:12 | PDOC.CMPRO ---
Care Management Progress Note S/O: CM met with Jackie at the bedside she is sitting on the side of the bed alert and engaged. She states she tried the non invasive ventilation support (NIV) machine last night nd it bothered her face. Stated she is willing to work with RT and try again. A:Jackie is a 68 year old female admitted with pneumonia, and CHF P: Jackie will be discharged home when medically ready per provider. RT is assisting with obtaining a NIV for at home use. She declines any home health services. She will transport home via private car with family at time of discharge. Palliative care will be notified of discharge to continue follow up as outpatient.
[2019-02-08] VITALS (11 sets, daily range): BP systolic 126–155; BP diastolic 65–89; PULSE 67–90; RESP 1–20; TEMP 36.3–36.9; O2SAT 91–97
[2019-02-08] MEDS: VANCOMYCIN 750 MG in Normal Saline 250 ML 166.667 MG IVPB (01:56)
[2019-02-08] MEDS: PIPERACILLIN/TAZO 3.375 GM in Normal Saline 50 ML IVPB (04:20)
[2019-02-08] MEDS: Normal Saline 500 ML 30 ML IV (04:20)
[2019-02-08] MEDS: Ipratropium 0.5 MG/2.5 ML UPD VIAL UPD ×3 (05:58→17:40)
[2019-02-08] MEDS: dilTIAZem 30 MG TAB PO (05:58)
[2019-02-08] MEDS: Budesonide/Formoterol 160/4.5 6 GM 60 PUFF INH IH ×2 (07:37→20:48)
[2019-02-08] MEDS: Metoprolol 25 MG TAB PO ×2 (07:40→20:48)
[2019-02-08] MEDS: Aspirin 81 MG CHEW 162 MG PO (07:40)
[2019-02-08] MEDS: Furosemide 40 MG/4 ML VIAL IVP (07:40)
[2019-02-08] MEDS: Pantoprazole 40 MG TABCR PO (07:40)
[2019-02-08] MEDS: Montelukast 10 MG TAB PO (07:40)
[2019-02-08] MEDS: Normal Saline Flush 10 ML SYR IVP (09:41)
[2019-02-08] MEDS: Doxycycline Hyclate 100 MG CAP PO ×2 (09:41→20:47)
[2019-02-08] MEDS: methylPREDNISolone SUCC 40 MG VIAL IVP ×2 (09:41→22:09)
[2019-02-08 10:23] LABS: Abs Immature Grans 0.04 k/cumm (0.0-0.09); Absolute Lymphocyte Count 0.46 k/cumm (1.2-3.4); Absolute Monocyte Count 0.94 k/cumm (0.11-0.7); Absolute Neutrophil Count 10.77 k/cumm (1.2-6.7); HCT 38.5 % (36.0-46.0); Immature Grans % 0.3; Lymphocytes % 3.8; Mean Corp. HGB Concentration 31.2 g/dL (32.0-36.0); Mean Corpuscular Hemoglobin 29.5 pg (27.0-33.0); Mean Corpuscular Volume 94.6 fL (80-95); Mean Platelet Volume 9.1 fL (8.0-11.0); Monocytes % 7.7; Neutrophils % 88.2; Platelet Count 377 x1000/uL (130-400); RBC 4.07 m/cumm (4.00-5.20); RBC Distribution Width 14.8 % (11.7-14.6); White Blood Cell Count 12.21 k/cumm (4.4-10.8)
[2019-02-08 10:32] LABS: Anion Gap 1.9 mmol/L (3-11); BUN 26 mg/dL (7-18); CO2 41.1 mmol/L (21.0-32.0); CREATININE 0.82 mg/dL (0.55-1.02); Chloride 89 mmol/L (98-107); Glucose 132 mg/dL (70-100); Magnesium 2.2 mg/dL (1.8-2.4); Potassium 4.5 mmol/L (3.5-5.1); Sodium 132 mmol/L (136-145)
[2019-02-08 10:50] LABS: Procalcitonin < 0.1 ng/mL
--- NOTE | 2019-02-08 13:31 | W.PM.PROGNOT ---
Date of Service Date of service: 02/08/19 Time of Service: 13:31 Assessment and Plan (1) Acute on chronic respiratory failure with hypoxia and hypercapnia: Current visit: Yes Status: Acute Multifactorial, due to both acute exacerbation of COPD (failed outpatient therapy) as well as Acute on chronic diastolic CHF. Currently also with evidence of new infiltrate after 4 days of hospitalization, although clinically suspected initially. Discontinue Pip-Tazo after a 5 day course. Vancomycin was added previously, but current procalcitonin is undetectable. Will discontinue today. Continue steroid therapy but titrate as able. Continue nebs. Patient now appears dehydrated clinically and by labs - hold diuretics. The patient, given her frequent COPD exacerbations and evidence of acute on chronic hypoxic hypercapnic respiratory failure, would strongly benefit from NIV long-term. (2) Acute exacerbation of chronic obstructive pulmonary disease (COPD): Current visit: Yes Status: Acute Failed outpatient therapy. Continue steroids, and nebs as above. (3) Acute on chronic diastolic CHF (congestive heart failure): Current visit: Yes Status: Acute Currently appears volume depleted by labs and clinically. Discontinue IV Furosemide, with plans to reinitiating low dose oral furosemide soon. Monitor daily weights and renal function carefully. (4) Chest discomfort: Current visit: Yes Status: Acute Appears likely nonischemic, with negative Nuclear stress test. Potential for esophageal spasm by prior evaluation, with patient initiated on short-acting Dilt. Will discontinue and reevaluate symptoms. (5) GERD (gastroesophageal reflux disease): Current visit: No Status: Chronic Continue PPI therapy. (6) HTN (hypertension): Current visit: No Status: Chronic Continue BB, reinitiate amlodipine with discontinuation of short-acting Diltiazem as above. Qualifiers: Hypertension type: essential hypertension Qualified Code(s): I10 - Essential (primary) hypertension (7) DVT prophylaxis: Current visit: No Status: Acute SC Enoxaparin. (8) Advance directive discussed with patient: Current visit: Yes Status: Acute DNR/DNI. Subjective Interval history since last seen: 68 year old woman with a prior history of COPD, admitted from [facility] on 02/02 with an initial diagnosis of COPD exacerbation. Mrs. Myers has a history of non-oxygen depended COPD, Diastolic CHF, and GERD. She was recently hospitalized and treated for Pneumonia in mid December. The patient was treated with Azithromycin and Ceftriaxone during her hospitalization, transitioned to oral Cefpodoxime and Azithromycin at time of discharge. She was then initiated on Levofloxacin by her PCP on 01/27 for worsening dyspnea, and despite treatment has been getting progressively worse, leading to her presentation to the ED. Work-up initially showed the patient to be hypoxic with oxygen sats in the 60's on room air, along with tachypnea, originally requiring BiPAP therapy. She was also noted to be acutely hypercapneic, and found to be in a degree of CHF. At that time she was referred for admission for further evaluation and treatment. Although the patient's original CXR was negative, a repeat test performed on 02/06 showed evidence of a new left pleural effusion vs. LLL lobe patchy consolidation suspicious for pneumonia, per radiology read. Her chest pain was worked up with a nuclear stress test interpreted as negative for ischemia. She has been maintained on broad spectrum antibiotics, with culture data unrevealing. She has also been diuresed, and feels improved again this morning, but now complaining of dizziness and associating it with being dehydrated. No other events reported. Remains afebrile. Exam Narrative Exam Narrative: General: Patient appears comfortable, AAOX3, NAD Neck: Supple CV: Regular, nontachycardic, S1S2, No rubs, murmurs, or gallops. Pulmonary: Diffusely diminished but clear to auscultation bilaterally, no crackles, wheezing, or rhonchi Abdomen: + Bowel Sounds, soft, nontender, nondistended Vascular: No lower extremity edema Psych: Normal mood and affect. Objective Objective Clinical Data: Abnormal lab results 02/08/19 02/08/19 Range/Units 10:15 10:15 WBC 12.21 H (4.4-10.8) k/cumm MCHC 31.2 L (32.0-36.0) g/dL RDW 14.8 H (11.7-14.6) % Absolute Neutrophils 10.77 H (1.2-6.7) k/cumm Absolute Lymphocytes 0.46 L (1.2-3.4) k/cumm Absolute Monocytes 0.94 H (0.11-0.7) k/cumm Sodium 132 L (136-145) mmol/L Chloride 89 L (98-107) mmol/L Carbon Dioxide 41.1 H (21.0-32.0) mmol/L Anion Gap 1.9 L (3-11) mmol/L BUN 26 H (7-18) mg/dL Glucose 132 H (70-100) mg/dL Vital Signs Temperature 36.9 C 02/08/19 12:00 Temperature Source Tympanic 02/08/19 12:00 Pulse 83 02/08/19 12:00 Pulse Rhythm Regular 02/08/19 07:26 Pulse 92 H 02/06/19 07:44 Respiratory Rate 20 02/08/19 12:00 Respiratory Effort Short of Breath 02/08/19 07:26 Respiratory Depth Normal 02/08/19 07:26 Respiratory Pattern Normal 02/08/19 07:26 Blood Pressure 153/80 H 02/08/19 12:00 Blood Pressure Mean 78 02/06/19 07:44 Blood Pressure Position Supine 02/04/19 08:00 Pulse Oximetry 91 L 02/08/19 12:12 Oxygen Delivery Method Nasal Cannula 02/08/19 12:12 Oxygen Flow Rate 3 02/08/19 12:12 Fraction of Inspired Oxygen (FIO2) 39 02/04/19 08:00 Pain Level 0 02/08/19 03:50 Intake & Output 02/07/19 02/08/19 02/08/19 23:59 11:59 23:59 Intake Total 1750 / 2500 830.5 / 1350.5 520 / 1350.5 Output Total 1050 / 1700 400 / 1450 1050 / 1450 Balance 700 / 800 430.5 / -99.5 -530 / -99.5 Weight 74.559 kg Intake: IV 310 / 700 350.5 / 390.5 40 / 390.5 Oral 1440 / 1800 480 / 960 480 / 960 Output: Urine 1050 / 1700 400 / 1450 1050 / 1450 Other: Urine Color Yellow Yellow Yellow Urine Appearance Clear Clear Clear Urine Odor None Normal Comment Multiple voids on commode mixed with loose stool. Stool Size Moderate Small Moderate Stool Characteristics Soft Soft Soft Brown Voiding Methods Bedside Commode Bedside Commode Laboratory Results WBC 12.21 k/cumm (4.4-10.8) H 02/08/19 10:15 RBC 4.07 m/cumm (4.00-5.20) 02/08/19 10:15 Hgb 12.0 g/dL (12.0-15.5) 02/08/19 10:15 Hct 38.5 % (36.0-46.0) 02/08/19 10:15 MCV 94.6 fL (80-95) 02/08/19 10:15 MCH 29.5 pg (27.0-33.0) 02/08/19 10:15 MCHC 31.2 g/dL (32.0-36.0) L 02/08/19 10:15 RDW 14.8 % (11.7-14.6) H 02/08/19 10:15 Plt Count 377 x1000/uL (130-400) 02/08/19 10:15 MPV 9.1 fL (8.0-11.0) 02/08/19 10:15 Immature Gran % 0.3 02/08/19 10:15 Neutrophils % 88.2 02/08/19 10:15 Lymphocytes % 3.8 02/08/19 10:15 Monocytes % 7.7 02/08/19 10:15 Eosinophils % 0.0 02/08/19 10:15 Basophils % 0.0 02/08/19 10:15 Absolute Neutrophils 10.77 k/cumm (1.2-6.7) H 02/08/19 10:15 Absolute Lymphocytes 0.46 k/cumm (1.2-3.4) L 02/08/19 10:15 Absolute Monocytes 0.94 k/cumm (0.11-0.7) H 02/08/19 10:15 Absolute Eosinophils 0.00 k/cumm (0.0-0.7) 02/08/19 10:15 Absolute Basophils 0.00 k/cumm (0.0-0.2) 02/08/19 10:15 Sample Site Right radial 02/05/19 14:19 pCO2 67 mmHg (34-47) H* 02/05/19 14:19 pO2 44 mmHg (83-108) L 02/05/19 14:19 O2 Saturation 81 % (94-98) L 02/05/19 14:19 ABG pH 7.44 (7.35-7.45) 02/05/19 14:19 ABG HCO3 45 mmol/L (22-28) H 02/05/19 14:19 ABG Total CO2 41 mmol/L (22-29) H 02/05/19 14:19 ABG Base Excess mmol/L (-3-3) 02/05/19 14:19 VBG pH 7.35 (7.32-7.43) 02/03/19 12:56 VBG pCO2 78 mm/Hg (34-47) H 02/03/19 12:56 VBG pO2 26 mm/Hg (28-44) L 02/03/19 12:56 VBG HCO3 43 mmol/L (22-28) H 02/03/19 12:56 VBG Total CO2 40 mmol/L (22-29) H 02/03/19 12:56 VBG O2 Saturation 45 % (70-80) L 02/03/19 12:56 VBG Base Excess mmol/L (-3-3) 02/03/19 12:56 Oxygen Liter Flow 4 L 02/02/19 14:58 FiO2 21 % 02/05/19 14:19 Sodium 132 mmol/L (136-145) L 02/08/19 10:15 Potassium 4.5 mmol/L (3.5-5.1) 02/08/19 10:15 Chloride 89 mmol/L (98-107) L 02/08/19 10:15 Carbon Dioxide 41.1 mmol/L (21.0-32.0) H 02/08/19 10:15 Anion Gap 1.9 mmol/L (3-11) L 02/08/19 10:15 BUN 26 mg/dL (7-18) H 02/08/19 10:15 Creatinine 0.82 mg/dL (0.55-1.02) 02/08/19 10:15 Estimated GFR/1.73 m2 >= 60.00 (mL/min/1.73m2) 02/08/19 10:15 Glucose 132 mg/dL (70-100) H 02/08/19 10:15 Calcium 9.0 mg/dL (8.5-10.1) 02/08/19 10:15 Magnesium 2.2 mg/dL (1.8-2.4) 02/08/19 10:15 Total Bilirubin 0.4 mg/dL (0.2-1.0) 02/02/19 09:10 AST 15 U/L (15-37) 02/02/19 09:10 ALT 41 U/L (12-78) 02/02/19 09:10 Alkaline Phosphatase 101 U/L (46-116) 02/02/19 09:10 Troponin I < 0.02 ng/mL (0.00-0.06) 02/05/19 21:10 NT-Pro-B Natriuret Pep 659 pg/mL (-299) H 02/02/19 09:10 Total Protein 7.7 g/dL (6.4-8.2) 02/02/19 09:10 Albumin 3.7 g/dL (3.4-5.0) 02/02/19 09:10 Triglycerides 93 mg/dL (30-150) 02/05/19 06:10 Total Cholesterol 205 mg/dL (50-200) H 02/05/19 06:10 LDL Cholesterol Direct 89 mg/dL (<100) 02/05/19 06:10 HDL Cholesterol 87 mg/dL (40-60) H 02/05/19 06:10 Procalcitonin < 0.1 ng/mL 02/08/19 10:15 Vancomycin Trough 19.4 ug/mL (10.0-20.0) 02/04/19 13:00
[2019-02-08] MEDS: Enoxaparin 40 MG/0.4 ML SYR SC (16:00)
[2019-02-08] MEDS: Milk of Magnesia 30 ML CUP PO (16:00)
--- NOTE | 2019-02-08 16:24 | PDOC.CMPRO ---
Care Management Progress Note S/O: CM met with Jackie at the bedside she is sitting on the side of the bed alert and engaged. She states she did not use the machine last night but has been working with RT and understands what to do now. A:Jackie is a 68 year old female admitted with pneumonia, and CHF P: Jackie will be discharged home when medically ready per provider. RT is assisting with obtaining a NIV for at home use. She declines any home health services. She will transport home via private car with family at time of discharge. Palliative care will be notified of discharge to continue follow up as outpatient.
[2019-02-08] MEDS: Sodium Chloride-Nasal SPRAY-ADULT 44 ML BTL NS (16:37)
--- NOTE | 2019-02-08 20:18 | PT.INTREAT ---
Date of service: 02/08/19 Time of Service: 20:19 PT Notes Inpatient Physical Therapy Treatment Note [facility] Date: 02/07/2019 PRECAUTIONS: Monitor SaO2 SUBJECTIVE: Jackie states that she continues to feel dizzy. OBJECTIVE: PAIN: No complaints of pain BED MOBILITY/TRANSFERS Sit-stand: I Stand-sit: I GAIT Assistive Device: FWW Weight bearing: Full Assist: S Distance: 30' x4 VITALS: SaO2: 86-93% on 4L O2 via NC throughout session ASSESSMENT: Patient tolerated session with complaints of dizziness. Patient was able to tolerate gait training although did demonstrate a drop in oxygen saturation to 86%. Patient requested to hold further PT due to dizziness. PLAN: Continue with PTs POC TREATMENT CODE/TIME: 15 minutes; [id number]
[2019-02-08] MEDS: LORazepam 0.5 MG TAB PO (20:47)
[2019-02-08] MEDS: Acetaminophen 325 MG TAB PO (20:47)
[2019-02-09] VITALS (11 sets, daily range): BP systolic 131–137; BP diastolic 69–79; PULSE 65–85; RESP 5–19; TEMP 36.4–37; O2SAT 90–98
[2019-02-09] MEDS: Ipratropium 0.5 MG/2.5 ML UPD VIAL UPD ×5 (00:17→23:27)
[2019-02-09] MEDS: Pantoprazole 40 MG TABCR PO (07:19)
[2019-02-09 07:50] LABS: Abs Immature Grans 0.08 k/cumm (0.0-0.09); Absolute Lymphocyte Count 0.24 k/cumm (1.2-3.4); Absolute Monocyte Count 0.84 k/cumm (0.11-0.7); HCT 37.8 % (36.0-46.0); HGB 11.6 g/dL (12.0-15.5); Immature Grans % 0.8; Lymphocytes % 2.3; Mean Corp. HGB Concentration 30.7 g/dL (32.0-36.0); Mean Corpuscular Hemoglobin 28.9 pg (27.0-33.0); Mean Platelet Volume 9.4 fL (8.0-11.0); Monocytes % 8.2; Neutrophils % 88.7; Platelet Count 388 x1000/uL (130-400); RBC 4.02 m/cumm (4.00-5.20); RBC Distribution Width 14.4 % (11.7-14.6); White Blood Cell Count 10.26 k/cumm (4.4-10.8)
[2019-02-09 08:08] LABS: Anion Gap 2.3 mmol/L (3-11); BUN 25 mg/dL (7-18); CO2 38.7 mmol/L (21.0-32.0); CREATININE 0.79 mg/dL (0.55-1.02); Calcium 8.9 mg/dL (8.5-10.1); Chloride 87 mmol/L (98-107); Glucose 112 mg/dL (70-100); Magnesium 2.5 mg/dL (1.8-2.4); Potassium 4.9 mmol/L (3.5-5.1); Sodium 128 mmol/L (136-145)
[2019-02-09] MEDS: amLODIPine 5 MG TAB PO (08:33)
[2019-02-09] MEDS: Aspirin 81 MG CHEW 162 MG PO (08:33)
[2019-02-09] MEDS: Montelukast 10 MG TAB PO (08:33)
[2019-02-09] MEDS: Doxycycline Hyclate 100 MG CAP PO ×2 (08:33→20:38)
[2019-02-09] MEDS: Metoprolol 25 MG TAB PO ×2 (08:33→20:38)
[2019-02-09] MEDS: Budesonide/Formoterol 160/4.5 6 GM 60 PUFF INH IH ×2 (10:58→20:37)
[2019-02-09] MEDS: Normal Saline Flush 10 ML SYR IVP (11:02)
[2019-02-09] MEDS: methylPREDNISolone SUCC 40 MG VIAL IVP ×2 (11:02→20:37)
[2019-02-09] MEDS: Normal Saline 1,000 ML 75 ML IV (11:02)
--- NOTE | 2019-02-09 14:18 | PT.INTREAT ---
Date of service: 02/09/19 Time of Service: 14:18 PT Notes Inpatient Physical Therapy Treatment Note [facility] Date: 02/07/2019 PRECAUTIONS: Monitor SaO2 SUBJECTIVE: Jackie states that she continues to feel dizzy, although it seems to be getting better. OBJECTIVE: PAIN: No complaints of pain BED MOBILITY/TRANSFERS Supine-sit: I Sit-stand: I Stand-sit: I GAIT Assistive Device: FWW Weight bearing: Full Assist: S Distance: 120' in a.m.; 100' + 50' + 60' in p.m. Deviation: Standing rest x1 in a.m.; standing rest x3 in p.m. Static standing x5 minute with UE support and supervision VITALS: SaO2: 86-94% on 2L O2 via NC throughout session in a.m.; 89-94% on 2L O2 via NC throughout session in p.m. ASSESSMENT: Patient tolerated session with minimal complaints of dizziness. Patient was able to tolerate gait training although did demonstrate a drop in oxygen saturation to 86%. Patient requested to hold further PT due to dizziness. PLAN: Continue with PTs POC TREATMENT CODE/TIME: Session 1: 15 minutes; 91034 Session 2: 25 minutes; [id number] x2
--- NOTE | 2019-02-09 14:21 | PTTR_ITS ---
Date of service: 02/09/19 Time of Service: 14:18 PT Notes Inpatient Physical Therapy Treatment Note [facility] Date: 02/07/2019 PRECAUTIONS: Monitor SaO2 SUBJECTIVE: Jackie states that she continues to feel dizzy, although it seems to be getting better. OBJECTIVE: PAIN: No complaints of pain BED MOBILITY/TRANSFERS Supine-sit: I Sit-stand: I Stand-sit: I GAIT Assistive Device: FWW Weight bearing: Full Assist: S Distance: 120' in a.m.; 100' + 50' + 60' in p.m. Deviation: Standing rest x1 in a.m.; standing rest x3 in p.m. Static standing x5 minute with UE support and supervision VITALS: SaO2: 86-94% on 2L O2 via NC throughout session in a.m.; 89-94% on 2L O2 via NC throughout session in p.m. ASSESSMENT: Patient tolerated session with minimal complaints of dizziness. Patient was able to tolerate gait training although did demonstrate a drop in oxygen saturation to 86%. Patient requested to hold further PT due to dizziness. PLAN: Continue with PTs POC TREATMENT CODE/TIME: Session 1: 15 minutes; [id number] Session 2: 25 minutes; [id number] x2
--- NOTE | 2019-02-09 14:26 | W.PM.PROGNOT ---
Date of Service Date of service: 02/09/19 Time of Service: 14:26 Assessment and Plan (1) Acute on chronic respiratory failure with hypoxia and hypercapnia: Current visit: Yes Status: Acute Multifactorial, due to both acute exacerbation of COPD (failed outpatient therapy) as well as Acute on chronic diastolic CHF. Currently also with evidence of new infiltrate after 4 days of hospitalization, although clinically suspected initially. Patient was maintained on Pip-Tazo, discontinued after a 5 day course and after an undetectable Procalcitonin. Vancomycin was added previously, but also discontinued. Continue steroid therapy but titrate as able. Continue nebs. Patient continues to appear dehydrated clinically and by labs - continue to hold diuretics and plan on gentle IVFs through today. Still requiring oxygen therapy. The patient, given her frequent COPD exacerbations and evidence of acute on chronic hypoxic hypercapnic respiratory failure, would strongly benefit from NIV long-term. (2) Acute exacerbation of chronic obstructive pulmonary disease (COPD): Current visit: Yes Status: Acute Failed outpatient therapy. Continue steroids, and nebs as above. (3) Acute on chronic diastolic CHF (congestive heart failure): Current visit: Yes Status: Acute Currently appears volume depleted again by labs and clinically. Discontinued IV Furosemide, with plans to reinitiating low dose oral furosemide soon. Gentle IVFs as above. Monitor daily weights and renal function carefully. (4) Chest discomfort: Current visit: Yes Status: Acute Appears likely nonischemic, with negative Nuclear stress test. Potential for esophageal spasm by prior evaluation, with patient initiated on short-acting Dilt. Discontinued Diltiazem - remains asymptomatic. (5) GERD (gastroesophageal reflux disease): Current visit: No Status: Chronic Continue PPI therapy. (6) HTN (hypertension): Current visit: No Status: Chronic Continue BB, reinitiate amlodipine with discontinuation of short-acting Diltiazem as above. Qualifiers: Hypertension type: essential hypertension Qualified Code(s): I10 - Essential (primary) hypertension (7) DVT prophylaxis: Current visit: No Status: Acute SC Enoxaparin. (8) Advance directive discussed with patient: Current visit: Yes Status: Acute DNR/DNI. Subjective Interval history since last seen: 68 year old woman with a prior history of COPD, admitted from [facility] on 02/02 with an initial diagnosis of COPD exacerbation. Mrs. Myers has a history of non-oxygen depended COPD, Diastolic CHF, and GERD. She was recently hospitalized and treated for Pneumonia in mid December. The patient was treated with Azithromycin and Ceftriaxone during her hospitalization, transitioned to oral Cefpodoxime and Azithromycin at time of discharge. She was then initiated on Levofloxacin by her PCP on 01/27 for worsening dyspnea, and despite treatment has been getting progressively worse, leading to her presentation to the ED. Work-up initially showed the patient to be hypoxic with oxygen sats in the 60's on room air, along with tachypnea, originally requiring BiPAP therapy. She was also noted to be acutely hypercapneic, and found to be in a degree of CHF. At that time she was referred for admission for further evaluation and treatment. Although the patient's original CXR was negative, a repeat test performed on 02/06 showed evidence of a new left pleural effusion vs. LLL lobe patchy consolidation suspicious for pneumonia, per radiology read. Her chest pain was worked up with a nuclear stress test interpreted as negative for ischemia, and with a normal LVEF. She has been maintained on broad spectrum antibiotics, with culture data unrevealing. Procalcitonin was checked on 02/08 and negative. She was also diuresed and initially felt improved, but then complained of dizziness. No other events reported. Remains afebrile. Exam Narrative Exam Narrative: General: Patient appears comfortable, AAOX3, NAD Neck: Supple CV: Regular, nontachycardic, S1S2, No rubs, murmurs, or gallops. Pulmonary: Diffusely diminished but clear to auscultation bilaterally, no crackles, wheezing, or rhonchi Abdomen: + Bowel Sounds, soft, nontender, nondistended Vascular: No lower extremity edema Psych: Normal mood and affect. Objective Objective Clinical Data: Abnormal lab results 02/09/19 02/09/19 Range/Units 07:00 07:00 Hgb 11.6 L (12.0-15.5) g/dL MCHC 30.7 L (32.0-36.0) g/dL Absolute Neutrophils 9.10 H (1.2-6.7) k/cumm Absolute Lymphocytes 0.24 L (1.2-3.4) k/cumm Absolute Monocytes 0.84 H (0.11-0.7) k/cumm Sodium 128 L (136-145) mmol/L Chloride 87 L (98-107) mmol/L Carbon Dioxide 38.7 H (21.0-32.0) mmol/L Anion Gap 2.3 L (3-11) mmol/L BUN 25 H (7-18) mg/dL Glucose 112 H (70-100) mg/dL Magnesium 2.5 H (1.8-2.4) mg/dL Vital Signs Temperature 37.0 C 02/09/19 12:43 Temperature Source Tympanic 02/09/19 12:43 Pulse 83 02/09/19 12:43 Pulse Rhythm Regular 02/09/19 07:20 Pulse 92 H 02/06/19 07:44 Respiratory Rate 18 02/09/19 12:43 Respiratory Effort Non-Labored 02/09/19 07:20 Respiratory Depth Normal 02/09/19 07:20 Respiratory Pattern Normal 02/09/19 07:20 Blood Pressure 131/69 02/09/19 12:43 Blood Pressure Mean 78 02/06/19 07:44 Blood Pressure Position Supine 02/04/19 08:00 Pulse Oximetry 90 L 02/09/19 14:10 Oxygen Delivery Method Room Air 02/09/19 14:10 Oxygen Flow Rate 0 02/09/19 14:10 Fraction of Inspired Oxygen (FIO2) 39 02/04/19 08:00 Pain Level 0 02/09/19 12:43 Intake & Output 02/08/19 02/09/19 02/09/19 23:59 11:59 23:59 Intake Total 1490 / 2320.5 1240 / 1480 240 / 1480 Output Total 1450 / 2050 850 / 850 Balance 40 / 270.5 390 / 630 240 / 630 Weight 74.6 kg Intake: IV 50 / 400.5 10 10 Oral 1440 / 1920 1230 / 1470 240 / 1470 Output: Urine 1450 / 2050 850 / 850 Other: Urine Color Yellow Yellow Yellow Urine Appearance Clear Clear Clear Urine Odor Normal Comment Multiple voids on commode mixed with loose stool. large amount of urine mixed with stool Stool Size Small Moderate Small Stool Characteristics Liquid Soft Soft Brown Voiding Methods Bedside Commode Bedside Commode Bedside Commode Laboratory Results WBC 10.26 k/cumm (4.4-10.8) 02/09/19 07:00 RBC 4.02 m/cumm (4.00-5.20) 02/09/19 07:00 Hgb 11.6 g/dL (12.0-15.5) L 02/09/19 07:00 Hct 37.8 % (36.0-46.0) 02/09/19 07:00 MCV 94.0 fL (80-95) 02/09/19 07:00 MCH 28.9 pg (27.0-33.0) 02/09/19 07:00 MCHC 30.7 g/dL (32.0-36.0) L 02/09/19 07:00 RDW 14.4 % (11.7-14.6) 02/09/19 07:00 Plt Count 388 x1000/uL (130-400) 02/09/19 07:00 MPV 9.4 fL (8.0-11.0) 02/09/19 07:00 Immature Gran % 0.8 02/09/19 07:00 Neutrophils % 88.7 02/09/19 07:00 Lymphocytes % 2.3 02/09/19 07:00 Monocytes % 8.2 02/09/19 07:00 Eosinophils % 0.0 02/09/19 07:00 Basophils % 0.0 02/09/19 07:00 Absolute Neutrophils 9.10 k/cumm (1.2-6.7) H 02/09/19 07:00 Absolute Lymphocytes 0.24 k/cumm (1.2-3.4) L 02/09/19 07:00 Absolute Monocytes 0.84 k/cumm (0.11-0.7) H 02/09/19 07:00 Absolute Eosinophils 0.00 k/cumm (0.0-0.7) 02/09/19 07:00 Absolute Basophils 0.00 k/cumm (0.0-0.2) 02/09/19 07:00 Sample Site Right radial 02/05/19 14:19 pCO2 67 mmHg (34-47) H* 02/05/19 14: pO2 44 mmHg (83-108) L 02/05/19 14:19 O2 Saturation 81 % (94-98) L 02/05/19 14:19 ABG pH 7.44 (7.35-7.45) 02/05/19 14: ABG HCO3 45 mmol/L (22-28) H 02/05/19 14:19 ABG Total CO2 41 mmol/L (22-29) H 02/05/19 14:19 ABG Base Excess mmol/L (-3-3) 02/05/19 14:19 VBG pH 7.35 (7.32-7.43) 02/03/19 12:56 VBG pCO2 78 mm/Hg (34-47) H 02/03/19 12:56 VBG pO2 26 mm/Hg (28-44) L 02/03/19 12:56 VBG HCO3 43 mmol/L (22-28) H 02/03/19 12:56 VBG Total CO2 40 mmol/L (22-29) H 02/03/19 12:56 VBG O2 Saturation 45 % (70-80) L 02/03/19 12:56 VBG Base Excess mmol/L (-3-3) 02/03/19 12:56 Oxygen Liter Flow 4 L 02/02/19 14:58 FiO2 21 % 02/05/19 14:19 Sodium 128 mmol/L (136-145) L 02/09/19 07:00 Potassium 4.9 mmol/L (3.5-5.1) 02/09/19 07:00 Chloride 87 mmol/L (98-107) L 02/09/19 07:00 Carbon Dioxide 38.7 mmol/L (21.0-32.0) H 02/09/19 07:00 Anion Gap 2.3 mmol/L (3-11) L 02/09/19 07:00 BUN 25 mg/dL (7-18) H 02/09/19 07:00 Creatinine 0.79 mg/dL (0.55-1.02) 02/09/19 07:00 Estimated GFR/1.73 m2 >= 60.00 (mL/min/1.73m2) 02/09/19 07:00 Glucose 112 mg/dL (70-100) H 02/09/19 07:00 Calcium 8.9 mg/dL (8.5-10.1) 02/09/19 07:00 Magnesium 2.5 mg/dL (1.8-2.4) H 02/09/19 07:00 Total Bilirubin 0.4 mg/dL (0.2-1.0) 02/02/19 09:10 AST 15 U/L (15-37) 02/02/19 09:10 ALT 41 U/L (12-78) 02/02/19 09:10 Alkaline Phosphatase 101 U/L (46-116) 02/02/19 09:10 Troponin I < 0.02 ng/mL (0.00-0.06) 02/05/19 21:10 NT-Pro-B Natriuret Pep 659 pg/mL (-299) H 02/02/19 09:10 Total Protein 7.7 g/dL (6.4-8.2) 02/02/19 09:10 Albumin 3.7 g/dL (3.4-5.0) 02/02/19 09:10 Triglycerides 93 mg/dL (30-150) 02/05/19 06:10 Total Cholesterol 205 mg/dL (50-200) H 02/05/19 06:10 LDL Cholesterol Direct 89 mg/dL (<100) 02/05/19 06:10 HDL Cholesterol 87 mg/dL (40-60) H 02/05/19 06:10 Procalcitonin < 0.1 ng/mL 02/08/19 10:15 Vancomycin Trough 19.4 ug/mL (10.0-20.0) 02/04/19 13:00
[2019-02-09] MEDS: Enoxaparin 40 MG/0.4 ML SYR SC (15:44)
[2019-02-09] MEDS: Mylanta Suspension 30 ML CUP PO (15:48)
--- NOTE | 2019-02-09 17:02 | PDOC.CMPRO ---
- If Service Date Differs Date of service: 02/09/19 Time of Service: 17:02 Care Management Progress Note S/O: CM met with Jackie at the bedside she is sitting up she makes good eye contact. She remains on oxygen Sao2 low 90's. CM provided update to [facility] today. Agency would like to coordinate home visit with RT prior to discharge. CM will follow up with agency when patient is to be discharged. Contact is Darion at [phone] agency will also provide home oxygen if Jackie needs it at time of discharge. A:Jackie is a 68 year old female admitted with pneumonia, and CHF P: Jackie will be discharged home when medically ready per provider. NIV in the room will be sent home with patient at time of discharge. She declines any home health services. She will have outpatient RT services through [facility]. She will transport home via private car with family at time of discharge. Palliative care will be notified of discharge to continue follow up as outpatient.
--- NOTE | 2019-02-09 17:07 | CMPROGNOTE_ITS ---
- If Service Date Differs Date of service: 02/09/19 Time of Service: 17:02 Care Management Progress Note S/O: CM met with Jackie at the bedside she is sitting up she makes good eye contact. She remains on oxygen Sao2 low 90's. CM provided update to [facility] today. Agency would like to coordinate home visit with RT prior to discharge. CM will follow up with agency when patient is to be discharged. Contact is Darion at [phone] agency will also provide home oxygen if Jackie needs it at time of discharge. A:Jackie is a 68 year old female admitted with pneumonia, and CHF P: Jackie will be discharged home when medically ready per provider. NIV in the room will be sent home with patient at time of discharge. She declines any home health services. She will have outpatient RT services through [facility]. She will transport home via private car with family at time of discharge. Palliative care will be notified of discharge to continue follow up as outpatient.
[2019-02-09] MEDS: LORazepam 0.5 MG TAB PO (20:38)
[2019-02-09] MEDS: Sodium Chloride-Nasal SPRAY-ADULT 44 ML BTL NS (20:38)
[2019-02-09] MEDS: Acetaminophen 325 MG TAB PO (20:38)
[2019-02-10] VITALS (10 sets, daily range): BP systolic 117–146; BP diastolic 69–78; PULSE 74–98; RESP 8–26; TEMP 35.9–37.1; O2SAT 90–94
[2019-02-10] MEDS: Ipratropium 0.5 MG/2.5 ML UPD VIAL UPD ×4 (06:27→23:22)
[2019-02-10 07:34] LABS: Abs Immature Grans 0.08 k/cumm (0.0-0.09); Absolute Basophil Count 0.01 k/cumm (0.0-0.2); Absolute Lymphocyte Count 0.44 k/cumm (1.2-3.4); Absolute Monocyte Count 0.89 k/cumm (0.11-0.7); Basophils % 0.1; HGB 12.4 g/dL (12.0-15.5); Immature Grans % 0.7; Lymphocytes % 3.8; Mean Corp. HGB Concentration 31.8 g/dL (32.0-36.0); Mean Corpuscular Hemoglobin 29.5 pg (27.0-33.0); Mean Corpuscular Volume 92.6 fL (80-95); Mean Platelet Volume 9.4 fL (8.0-11.0); Monocytes % 7.7; Neutrophils % 87.7; Platelet Count 392 x1000/uL (130-400); RBC 4.21 m/cumm (4.00-5.20); RBC Distribution Width 14.7 % (11.7-14.6); White Blood Cell Count 11.59 k/cumm (4.4-10.8)
[2019-02-10 07:37] LABS: Absolute Neutrophil Count 10.16 k/cumm (1.2-6.7)
[2019-02-10 07:43] LABS: Anion Gap 4.7 mmol/L (3-11); BUN 20 mg/dL (7-18); CO2 33.3 mmol/L (21.0-32.0); CREATININE 0.77 mg/dL (0.55-1.02); Chloride 89 mmol/L (98-107); Glucose 107 mg/dL (70-100); Magnesium 2.6 mg/dL (1.8-2.4); Potassium 5.5 mmol/L (3.5-5.1); Sodium 127 mmol/L (136-145)
[2019-02-10] MEDS: Doxycycline Hyclate 100 MG CAP PO ×2 (08:02→19:16)
[2019-02-10] MEDS: amLODIPine 5 MG TAB PO (08:02)
[2019-02-10] MEDS: Montelukast 10 MG TAB PO (08:02)
[2019-02-10] MEDS: Metoprolol 25 MG TAB PO ×2 (08:03→19:16)
[2019-02-10] MEDS: Pantoprazole 40 MG TABCR PO (08:03)
[2019-02-10] MEDS: Aspirin 81 MG CHEW 162 MG PO (08:11)
[2019-02-10] MEDS: Normal Saline Flush 10 ML SYR IVP ×2 (09:39→13:48)
[2019-02-10] MEDS: methylPREDNISolone SUCC 40 MG VIAL IVP (09:39)
[2019-02-10] MEDS: Normal Saline 1,000 ML 100 ML IV (09:43)
[2019-02-10] MEDS: Budesonide/Formoterol 160/4.5 6 GM 60 PUFF INH IH ×2 (09:51→19:15)
--- NOTE | 2019-02-10 11:39 | PDOC.CMPRO ---
- If Service Date Differs Date of service: 02/10/19 Time of Service: 11:39 Care Management Progress Note S/O: Jackie is sitting up in chair she in engaged in assessment. She is not on oxygen at this time. She is hopeful that she will not need oxygen at home. She will be discharged home with NIV and with RT support through [facility]. She is requesting a financial assistance application CM assisted with and will return the application to patient procurement accountant once completed. Jackie continues to decline home health. A:Jackie is a 68 year old female admitted with pneumonia, and CHF P: Jackie will be discharged home when medically ready per provider. NIV in the room will be sent home with patient at time of discharge. She declines any home health services. She will have outpatient RT services through [facility]. She will transport home via private car with family at time of discharge. Palliative care will be notified of discharge to continue follow up as outpatient.
--- NOTE | 2019-02-10 11:53 | CMPROGNOTE_ITS ---
- If Service Date Differs Date of service: 02/10/19 Time of Service: 11:39 Care Management Progress Note S/O: Jackie is sitting up in chair she in engaged in assessment. She is not on oxygen at this time. She is hopeful that she will not need oxygen at home. She will be discharged home with NIV and with RT support through [facility]. She is requesting a financial assistance application CM assisted with and will return the application to patient landscape account manager once completed. Jackie continues to decline home health. A:Jackie is a 68 year old female admitted with pneumonia, and CHF P: Jackie will be discharged home when medically ready per provider. NIV in the room will be sent home with patient at time of discharge. She declines any home health services. She will have outpatient RT services through [facility]. She will transport home via private car with family at time of discharge. Palliative care will be notified of discharge to continue follow up as outpatient.
--- NOTE | 2019-02-10 12:32 | PT.INTREAT ---
Date of service: 02/10/19 Time of Service: 12:33 PT Notes Inpatient Physical Therapy Treatment Note [facility] Date: 02/10/2019 PRECAUTIONS: Monitor SaO2 SUBJECTIVE: Jackie states that she is feeling much better today. She reports that she has been performing standing exercises independently in her room. OBJECTIVE: PAIN: No complaints of pain BED MOBILITY/TRANSFERS Sit-stand: I Stand-sit: I GAIT Assistive Device: FWW Weight bearing: Full Assist: S Distance: 200' Deviation: Standing rest x2 due to decreased SaO2 Static standing with functional dynamic UE movement x1 minute without UE support VITALS: SaO2: 83-95% on RA throughout session ASSESSMENT: Patient tolerated session with minimal complaints of SOB with gait training. Patient was able to tolerate a progression in gait distance with FWW support, although did require standing rest x2 due to decrease in SaO2. PLAN: Continue with PTs POC TREATMENT CODE/TIME: 15 minutes; 31004
--- NOTE | 2019-02-10 14:26 | NUR.NOTE ---
Nursing Note: At approximately 1330 patient stated she was feeling like she was filling up with fluid again, becoming more short of breath and feeling puffy. Patient was assessed and RN Kelsey Gupta. IV fluids were decreased. CCRN and MD notified and d/c'd IV fluids
--- NOTE | 2019-02-10 15:43 | PGE_ITS ---
Date of Service Date of service: 02/10/19 Time of Service: 15:40 Assessment and Plan (1) Acute on chronic respiratory failure with hypoxia and hypercapnia: Current visit: Yes Status: Acute Multifactorial, due to both acute exacerbation of COPD (failed outpatient therapy) as well as Acute on chronic diastolic CHF. Also with evidence of new infiltrate after 4 days of hospitalization. Patient was maintained on Pip-Tazo, discontinued after a 5 day course and after an undetectable Procalcitonin. Vancomycin was added previously, but also discontinued. Continue steroid therapy but titrate as able. Continue nebs. Patient continued to appear dehydrated clinically and by labs - did not tolerate attempts at continued IVFs through a second bag. Oral lasix still on hold. Appears off oxygen therapy, but with increased work of breathing with repeat attempts at hydration. The patient, given her frequent COPD exacerbations and evidence of acute on chronic hypoxic hypercapnic respiratory failure, would strongly benefit from NIV long-term. (2) Acute exacerbation of chronic obstructive pulmonary disease (COPD): Current visit: Yes Status: Acute Failed outpatient therapy. Continue steroids, and nebs as above. (3) Acute on chronic diastolic CHF (congestive heart failure): Current visit: Yes Status: Acute Appeared volume depleted again by labs and clinically this morning, but repeat attempts at gentle hydration stopped as patient became subjectively dyspneic. Remains hyponatremic and hypochloremic. Will maintain off fluids and diuretics, with plans of reinitiating low dose oral furosemide soon. Monitor daily weights and renal function carefully. (4) Chest discomfort: Current visit: Yes Status: Acute Appears likely nonischemic, with negative Nuclear stress test. Potential for esophageal spasm by prior evaluation, with patient initiated on short-acting Dilt. Discontinued Diltiazem - remains asymptomatic. (5) GERD (gastroesophageal reflux disease): Current visit: No Status: Chronic Continue PPI therapy. (6) HTN (hypertension): Current visit: No Status: Chronic Continue BB, reinitiated amlodipine with discontinuation of short-acting Diltiazem as above. Qualifiers: Hypertension type: essential hypertension Qualified Code(s): I10 - Essential (primary) hypertension (7) DVT prophylaxis: Current visit: No Status: Acute SC Enoxaparin. (8) Advance directive discussed with patient: Current visit: Yes Status: Acute DNR/DNI. Subjective Interval history since last seen: 68 year old woman with a prior history of COPD, admitted from [facility] on 02/02 with an initial diagnosis of COPD exacerbation. Mrs. Myers has a history of non-oxygen depended COPD, Diastolic CHF, and GERD. She was recently hospitalized and treated for Pneumonia in mid December. The patient was treated with Azithromycin and Ceftriaxone during her hospitalization, transitioned to oral Cefpodoxime and Azithromycin at time of discharge. She was then initiated on Levofloxacin by her PCP on 01/27 for worsening dyspnea, and despite treatment has been getting progressively worse, leading to her presentation to the ED. Work-up initially showed the patient to be hypoxic with oxygen sats in the 60's on room air, along with tachypnea, originally requiring BiPAP therapy. She was also noted to be acutely hypercapneic, and found to be in a degree of CHF. At that time she was referred for admission for further evaluation and treatment. Although the patient's original CXR was negative, a repeat test performed on 02/06 showed evidence of a new left pleural effusion vs. LLL lobe patchy consolidation suspicious for pneumonia, per radiology read. Her chest pain was worked up with a nuclear stress test interpreted as negative for ischemia, and with a normal LVEF. She had been maintained on broad spectrum antibiotics, with culture data unrevealing. Procalcitonin was checked on 02/08 and negative, with antibiotics discontinued. She was also diuresed and initially felt improved, but then complained of dizziness with evidence of dehydration by labs. This morning she felt well with gentle hydration yesterday, but with continued hyponatremia and hypochloremia by labs. Additional IVFs were not tolerated by patient. No other events reported. Remains afebrile. Exam Narrative Exam Narrative: General: Patient appears comfortable, AAOX3, NAD Neck: Supple CV: Regular, nontachycardic, S1S2, No rubs, murmurs, or gallops. Pulmonary: Diffusely diminished but clear to auscultation bilaterally, no crackles, wheezing, or rhonchi. Exam improved. Abdomen: + Bowel Sounds, soft, nontender, nondistended Vascular: No lower extremity edema Psych: Normal mood and affect. Objective Objective Clinical Data: Abnormal lab results 02/10/19 02/10/19 Range/Units 07:23 07:23 WBC 11.59 H (4.4-10.8) k/cumm MCHC 31.8 L (32.0-36.0) g/dL RDW 14.7 H (11.7-14.6) % Absolute Neutrophils 10.16 H (1.2-6.7) k/cumm Absolute Lymphocytes 0.44 L (1.2-3.4) k/cumm Absolute Monocytes 0.89 H (0.11-0.7) k/cumm Sodium 127 L (136-145) mmol/L Potassium 5.5 H (3.5-5.1) mmol/L Chloride 89 L (98-107) mmol/L Carbon Dioxide 33.3 H (21.0-32.0) mmol/L BUN 20 H (7-18) mg/dL Glucose 107 H (70-100) mg/dL Magnesium 2.6 H (1.8-2.4) mg/dL Vital Signs Temperature 37.1 C 02/10/19 12:24 Temperature Source Tympanic 02/10/19 12:24 Pulse 89 02/10/19 12:24 Pulse Rhythm Regular 02/10/19 08:00 Pulse 92 H 02/06/19 07:44 Respiratory Rate 26 H 02/10/19 13:30 Respiratory Effort Non-Labored 02/10/19 08:00 Respiratory Depth Normal 02/10/19 08:00 Respiratory Pattern Normal 02/10/19 08:00 Blood Pressure 117/69 02/10/19 12:24 Blood Pressure Mean 78 02/06/19 07:44 Blood Pressure Position Supine 02/04/19 08:00 Pulse Oximetry 92 L 02/10/19 13:30 Oxygen Delivery Method Room Air 02/10/19 13:30 Oxygen Flow Rate 0 02/10/19 13:30 Fraction of Inspired Oxygen (FIO2) 39 02/04/19 08:00 Pain Level 0 02/10/19 10:21 Comment 02/10/19 03:39 Intake & Output 02/09/19 02/10/19 02/10/19 23:59 11:59 23:59 Intake Total 194.25 / 3181.25 500 / 915 415 / 915 Output Total 400 / 1300 900 / 1300 Balance 1940.25 / 2331.25 100 / -385 -485 / -385 Weight 74.2 kg Intake: IV 981.25 / 991.25 415 / 415 Oral 960 / 2190 500 / 500 Output: Urine 400 / 1300 900 / 1300 Other: Urine Color Yellow Yellow Urine Appearance Clear Clear Clear Urine Odor Normal Comment large amount of urine mixed with stool void x3 Stool Size Moderate Stool Characteristics Liquid Brown Voiding Methods Bedside Commode Bedside Commode Bedside Commode Laboratory Results WBC 11.59 k/cumm (4.4-10.8) H 02/10/19 07:23 RBC 4.21 m/cumm (4.00-5.20) 02/10/19 07:23 Hgb 12.4 g/dL (12.0-15.5) 02/10/19 07:23 Hct 39.0 % (36.0-46.0) 02/10/19 07:23 MCV 92.6 fL (80-95) 02/10/19 07:23 MCH 29.5 pg (27.0-33.0) 02/10/19 07:23 MCHC 31.8 g/dL (32.0-36.0) L 02/10/19 07:23 RDW 14.7 % (11.7-14.6) H 02/10/19 07:23 Plt Count 392 x1000/uL (130-400) 02/10/19 07:23 MPV 9.4 fL (8.0-11.0) 02/10/19 07:23 Immature Gran % 0.7 02/10/19 07:23 Neutrophils % 87.7 02/10/19 07:23 Lymphocytes % 3.8 02/10/19 07:23 Monocytes % 7.7 02/10/19 07:23 Eosinophils % 0.0 02/10/19 07:23 Basophils % 0.1 02/10/19 07:23 Absolute Neutrophils 10.16 k/cumm (1.2-6.7) H 02/10/19 07:23 Absolute Lymphocytes 0.44 k/cumm (1.2-3.4) L 02/10/19 07:23 Absolute Monocytes 0.89 k/cumm (0.11-0.7) H 02/10/19 07:23 Absolute Eosinophils 0.00 k/cumm (0.0-0.7) 02/10/19 07:23 Absolute Basophils 0.01 k/cumm (0.0-0.2) 02/10/19 07:23 Sample Site Right radial 02/05/19 14:19 pCO2 67 mmHg (34-47) H* 02/05/19 14:19 pO2 44 mmHg (83-108) L 02/05/19 14:19 O2 Saturation 81 % (94-98) L 02/05/19 14:19 ABG pH 7.44 (7.35-7.45) 02/05/19 14:19 ABG HCO3 45 mmol/L (22-28) H 02/05/19 14:19 ABG Total CO2 41 mmol/L (22-29) H 02/05/19 14:19 ABG Base Excess mmol/L (-3-3) 02/05/19 14:19 VBG pH 7.35 (7.32-7.43) 02/03/19 12:56 VBG pCO2 78 mm/Hg (34-47) H 02/03/19 12:56 VBG pO2 26 mm/Hg (28-44) L 02/03/19 12:56 VBG HCO3 43 mmol/L (22-28) H 02/03/19 12:56 VBG Total CO2 40 mmol/L (22-29) H 02/03/19 12:56 VBG O2 Saturation 45 % (70-80) L 02/03/19 12:56 VBG Base Excess mmol/L (-3-3) 02/03/19 12:56 Oxygen Liter Flow 4 L 02/02/19 14:58 FiO2 21 % 02/05/19 14:19 Sodium 127 mmol/L (136-145) L 02/10/19 07:23 Potassium 5.5 mmol/L (3.5-5.1) H 02/10/19 07:23 Chloride 89 mmol/L (98-107) L 02/10/19 07:23 Carbon Dioxide 33.3 mmol/L (21.0-32.0) H 02/10/19 07:23 Anion Gap 4.7 mmol/L (3-11) 02/10/19 07:23 BUN 20 mg/dL (7-18) H 02/10/19 07:23 Creatinine 0.77 mg/dL (0.55-1.02) 02/10/19 07:23 Estimated GFR/1.73 m2 >= 60.00 (mL/min/1.73m2) 02/10/19 07:23 Glucose 107 mg/dL (70-100) H 02/10/19 07:23 Calcium 9.0 mg/dL (8.5-10.1) 02/10/19 07:23 Magnesium 2.6 mg/dL (1.8-2.4) H 02/10/19 07:23 Total Bilirubin 0.4 mg/dL (0.2-1.0) 02/02/19 09:10 AST 15 U/L (15-37) 02/02/19 09:10 ALT 41 U/L (12-78) 02/02/19 09:10 Alkaline Phosphatase 101 U/L (46-116) 02/02/19 09:10 Troponin I < 0.02 ng/mL (0.00-0.06) 02/05/19 21:10 NT-Pro-B Natriuret Pep 659 pg/mL (-299) H 02/02/19 09:10 Total Protein 7.7 g/dL (6.4-8.2) 02/02/19 09:10 Albumin 3.7 g/dL (3.4-5.0) 02/02/19 09:10 Triglycerides 93 mg/dL (30-150) 02/05/19 06:10 Total Cholesterol 205 mg/dL (50-200) H 02/05/19 06:10 LDL Cholesterol Direct 89 mg/dL (<100) 02/05/19 06:10 HDL Cholesterol 87 mg/dL (40-60) H 02/05/19 06:10 Procalcitonin < 0.1 ng/mL 02/08/19 10:15 Vancomycin Trough 19.4 ug/mL (10.0-20.0) 02/04/19 13:00
[2019-02-10] MEDS: Enoxaparin 40 MG/0.4 ML SYR SC (15:44)
--- NOTE | 2019-02-10 18:29 | NUR.NOTE ---
Nursing Note: Pt received sitting on the chair with bilateral feet 2 pillows underneath, both feet seen bluish in color but warm to touched. Socks put in and encouraged to elevate lower extremities.Pedal pulses present. Rechecked and it improves and pt verbalized of feeling better.
[2019-02-10] MEDS: predniSONE 20 MG TAB 40 MG PO (19:16)
[2019-02-10] MEDS: Acetaminophen 325 MG TAB PO (19:20)
[2019-02-10] MEDS: Sodium Chloride-Nasal SPRAY-ADULT 44 ML BTL NS (19:21)
[2019-02-11] MEDS: Acetaminophen 325 MG TAB PO ×2 (00:19→07:01)
--- NOTE | 2019-02-11 01:36 | NUR.NOTE ---
Nursing Note: At 01:30, pt is fully awake on bed, called staff, so much concern with her lasix pill. She stated that MD told her that she will get it back again. resident care spec is aware of the concern, will be posted on day shift report. Pt verbalized of being puffy again
[2019-02-11 04:00] VITALS: BP 162/75; PULSE 77; RESP 18; TEMP 36.6; O2SAT 91
[2019-02-11] MEDS: Ipratropium 0.5 MG/2.5 ML UPD VIAL UPD ×2 (06:39→11:08)
[2019-02-11 07:09] VITALS: PULSE 91; RESP 1; RESP 19; RESP 8; O2SAT 91
[2019-02-11 07:25] VITALS: BP 162/74; PULSE 94; RESP 18; TEMP 36.7; O2SAT 92
[2019-02-11 07:28] LABS: Abs Immature Grans 0.25 k/cumm (0.0-0.09); Absolute Basophil Count 0.01 k/cumm (0.0-0.2); Absolute Monocyte Count 1.45 k/cumm (0.11-0.7); Basophils % 0.1; HGB 11.8 g/dL (12.0-15.5); Immature Grans % 1.9; Lymphocytes % 3.1; Mean Corp. HGB Concentration 31.9 g/dL (32.0-36.0); Mean Corpuscular Hemoglobin 29.3 pg (27.0-33.0); Mean Corpuscular Volume 91.8 fL (80-95); Mean Platelet Volume 9.3 fL (8.0-11.0); Monocytes % 11.1; Neutrophils % 83.8; Platelet Count 471 x1000/uL (130-400); RBC 4.03 m/cumm (4.00-5.20); RBC Distribution Width 14.5 % (11.7-14.6); White Blood Cell Count 13.07 k/cumm (4.4-10.8)
[2019-02-11 07:29] LABS: Absolute Lymphocyte Count 0.41 k/cumm (1.2-3.4); Absolute Neutrophil Count 10.95 k/cumm (1.2-6.7)
[2019-02-11] MEDS: Budesonide/Formoterol 160/4.5 6 GM 60 PUFF INH IH (07:35)
[2019-02-11 07:37] LABS: Anion Gap 3.6 mmol/L (3-11); BUN 24 mg/dL (7-18); CO2 33.4 mmol/L (21.0-32.0); CREATININE 0.77 mg/dL (0.55-1.02); Chloride 93 mmol/L (98-107); Glucose 96 mg/dL (70-100); Magnesium 2.2 mg/dL (1.8-2.4); Potassium 5.5 mmol/L (3.5-5.1); Sodium 130 mmol/L (136-145)
[2019-02-11] MEDS: Pantoprazole 40 MG TABCR PO (07:59)
[2019-02-11 08:01] VITALS: RESP 18
[2019-02-11] MEDS: Doxycycline Hyclate 100 MG CAP PO (08:04)
[2019-02-11] MEDS: Montelukast 10 MG TAB PO (08:04)
[2019-02-11] MEDS: amLODIPine 5 MG TAB PO (08:04)
[2019-02-11] MEDS: Metoprolol 25 MG TAB PO (08:04)
[2019-02-11] MEDS: Aspirin 81 MG CHEW 162 MG PO (08:08)
[2019-02-11] MEDS: predniSONE 20 MG TAB 40 MG PO (08:08)
--- NOTE | 2019-02-11 08:53 | PDOC.CMDIS ---
- If Service Date Differs Date of service: 02/11/19 Time of Service: 08:53 LACE Index Scoring Tool - Questions: Length of Stay (in days): 4 - 6 Acuity (Admit via E.D.?): Yes Comorbidities: Congestive Heart Failure, Chronic Pulmonary Disease E.D. Visits: 2 - Answers: Total Score: 14 Risk of Readmission: High Risk Care Management Discharge Reason for Hospitalization: COPD exacerbation, acute hypoxia, CHF Discharge Plan: Jackie will be discharged home today with supports through [facility] for RT support and ongoing follow up for NIV. She completed the patient assistance application. PT recomends a FWW for her patietn and agree. CM reviewed DME agencies pt request CM to fill FWW through [employer]. Jackie will be transported home via private car with sister at time of discharge. RT from [facility] met with patient prior to discharge and reviewed all NIV equipment with her. Patient/Family Education Needs: Discharge education, limitations, medications and treatments. Ask me three and self management. Jackie states she feels ready to be discharged home today and understands her discharge plan. Services Needed at Discharge: Respiratory Therapy, Respiratory Care Services
--- NOTE | 2019-02-11 08:57 | CMDISCH_ITS ---
- If Service Date Differs Date of service: 02/11/19 Time of Service: 08:53 LACE Index Scoring Tool - Questions: Length of Stay (in days): 4 - 6 Acuity (Admit via E.D.?): Yes Comorbidities: Congestive Heart Failure, Chronic Pulmonary Disease E.D. Visits: 2 - Answers: Total Score: 14 Risk of Readmission: High Risk Care Management Discharge Reason for Hospitalization: COPD exacerbation, acute hypoxia, CHF Discharge Plan: Jackie will be discharged home today with supports through [facility] for RT support and ongoing follow up for NIV. She completed the patient assistance application. PT recomends a FWW for her patietn and agree. CM reviewed DME agencies pt request CM to fill FWW through [employer] (formerly [employer]). Jackie will be transported home via private car with sister at time of discharge. RT from [facility] met with patient prior to discharge and reviewed all NIV equipment with her. Patient/Family Education Needs: Discharge education, limitations, medications and treatments. Ask me three and self management. Jackie states she feels ready to be discharged home today and understands her discharge plan. Services Needed at Discharge: Respiratory Therapy, Respiratory Care Services
[2019-02-11] MEDS: guaiFENesin 600 MG TABCR PO (09:00)
[2019-02-11] MEDS: Furosemide 20 MG TAB PO (09:31)
[2019-02-11 09:43] VITALS: O2SAT 91
--- NOTE | 2019-02-11 10:58 | W.PM.DS.N ---
Date of service: 02/11/19 Time of Service: 10:59 DS: Diagnosis Discharge Diagnosis (1) Acute on chronic respiratory failure with hypoxia and hypercapnia: Status: Acute (2) Acute exacerbation of chronic obstructive pulmonary disease (COPD): Status: Acute (3) Acute on chronic diastolic CHF (congestive heart failure): Status: Acute (4) Chest discomfort: Status: Acute (5) GERD (gastroesophageal reflux disease): Status: Chronic (6) HTN (hypertension): Status: Chronic Discharge Plan Disposition Patient Disposition: HOME Condition: Stable Discharge Details Reason For Visit: ACUTE EXACERBATION OF COPD, ACUTE HYPOXIC RESP. Admit Date/Time: 02/02/19 10:29 Admit Provider: Angelina Chino Attending Provider: Angelina Chino Primary Care Provider: Yazmin Yañez Hospital Course Hospital Course: Chief Complaint: Dyspnea HPI: 68 year old woman with a prior history of COPD, admitted from [facility] on 02/02 with an initial diagnosis of COPD exacerbation. Mrs. Myers has a history of non-oxygen depended COPD, Diastolic CHF, and GERD. She was recently hospitalized and treated for Pneumonia in mid December. The patient was treated with Azithromycin and Ceftriaxone during her hospitalization, transitioned to oral Cefpodoxime and Azithromycin at time of discharge. She was then initiated on Levofloxacin by her PCP on 01/27 for worsening dyspnea, and despite treatment had been getting progressively worse, leading to her presentation to the ED. Work-up initially showed the patient to be hypoxic with oxygen sats in the 60's on room air, along with tachypnea, originally requiring BiPAP therapy. She was also noted to be acutely hypercapneic, and found to be in a degree of CHF. At that time she was referred for admission for further evaluation and treatment. Although the patient's original CXR was negative, a repeat test performed on 02/06 was interpreted as having evidence of a new left pleural effusion vs. LLL lobe patchy consolidation suspicious for pneumonia. Her chest pain was worked up with a nuclear stress test interpreted as negative for ischemia, and with a normal LVEF. She had been maintained on broad spectrum antibiotics, with culture data unrevealing. Procalcitonin was checked on 02/08 and negative, with antibiotics discontinued. She was also diuresed and initially felt improved, but then complained of dizziness with evidence of dehydration by labs. This morning she felt well with gentle hydration previously, and with oral lasix reinitiated. She does have continued hyponatremia and hypochloremia by labs, both appear improved. No other events reported. Remains afebrile. Hospital Course: (1) Acute on chronic respiratory failure with hypoxia and hypercapnia: Multifactorial, due to both acute exacerbation of COPD (failed outpatient therapy) as well as Acute on chronic diastolic CHF. Also with evidence of new infiltrate vs. effusion after 4 days of hospitalization. Patient was maintained on Pip-Tazo, discontinued after a 5 day course and after an undetectable Procalcitonin on 02/08 - please note that she had remained afebrile throughout her hospital course, with mild leukocytosis in setting of steroid use - also appeared volume overloaded. Vancomycin was added previously, but also discontinued at the same time as her Zosyn. She continues to feel well and reports being at her baseline breathing status - no longer requiring supplemental oxygen. Wll continue steroid therapy with plans for a slow taper. Continue nebs. She will also continue on her home NIV long-term (Astral). (2) Acute exacerbation of chronic obstructive pulmonary disease (COPD): Failed outpatient therapy. Continue steroids, and nebs as above. (3) Acute on chronic diastolic CHF (congestive heart failure): Appeared volume depleted previously following diuresis, both by labs and clinically. However, also becomes subjectively dyspneic with minimal hydration. Currently feels very well from a respiratory standpoint, with swelling in her legs that is slightly worse than her baseline. She reports similiar findings prior to her last discharge, resolved within a few days at home. Also appears to be hyponatremic and hypochloremic, slightly improved, with minimal hyperkalemia off her home Furosemide, all unchanged to slightly improved from yesterday. Will plan on resumption of her low dose home Furosemide, with careful monitoring of her weight, fluid status, and repeat labs as outpatient. (4) Chest discomfort: Appears likely nonischemic, with negative Nuclear stress test. (5) GERD (gastroesophageal reflux disease): Continue PPI therapy. (6) HTN (hypertension): Continue BB, CCB. (7) DVT prophylaxis: Was maintained on SC Enoxaparin. (8) Advance directive: DNR/DNI. Home Meds and New Rx's Prescriptions: New prednisone 10 mg tablet 10 mg PO DAILY Qty: 34 RF: 0 Continued cholecalciferol (vitamin D3) 50,000 unit capsule 50,000 unit PO QWEEK Qty: 8 RF: 0 fluticasone propion-salmeterol [Advair Diskus] 1 EACH blister with device 1 puff Inhalation BID Qty: 3 RF: 4 albuterol sulfate 2.5 MG/3 ML solution for nebulization 1 amp Inhalation QID PRN Qty: 50 RF: 11 amlodipine 5 MG tablet 5 mg PO DAILY Qty: 90 RF: 4 montelukast 10 MG tablet 10 mg PO DAILY Qty: 90 RF: 3 furosemide 20 MG tablet 20 mg PO QAM Qty: 90 RF: 4 COMBIVENT RESPIMAT INHAL SPRAY 4 GM AER.W.ADAP 1 puff Inhalation QID Qty: 3 RF: 4 guaifenesin [Mucinex] 600 mg Tablet Extended Release 12hr 600 mg PO BID PRNRF: 0 pantoprazole 40 mg Tablet,Delayed Release (Dr/Ec) 40 mg PO DAILY@0730 Qty: 30 RF: 0 acidophilus-pectin, citrus 25 million cell -100 mg Tablet 1 cap PO TID Qty: 9 RF: 0 Changed metoprolol tartrate 25 mg Tablet 25 mg PO Q12H Qty: 30 RF: 0 Discontinued levofloxacin 750 mg tablet 750 mg PO DAILY Qty: 7 RF: 0 prednisone 10 mg tablet 10 mg PO DAILY Qty: 9 RF: 0 Discharge Instructions Stand Alone Forms: Nursing Discharge Form Referrals: Yazmin Yañez NP [Primary Care Provider] - 02/17/19 3:40 pm Activity:: No Strenuous Activity Equipment/Supplies:: No Equipment Needed Diet:: As Tolerated Discharge Orders Discharge Orders: Discharge Order (Routine); Ordered 02/11/19 Ordered By: Fernando Parikh Exam Narrative Exam Narrative: General: Patient appears comfortable, AAOX3, NAD Neck: Supple CV: Regular, nontachycardic, S1S2, No rubs, murmurs, or gallops. Pulmonary: Diffusely diminished but clear to auscultation bilaterally, no crackles, wheezing, or rhonchi. Better air entry. Exam improved. Abdomen: + Bowel Sounds, soft, nontender, nondistended Vascular: 1 + B/l lower extremity edema Psych: Normal mood and affect. DS: Data Vitals/I&O Vitals and I&O: Vital Signs Temperature 36.7 C 02/11/19 07:25 Temperature Source Tympanic 02/11/19 07:25 Pulse 94 H 02/11/19 07:25 Pulse Rhythm Regular 02/11/19 07:42 Pulse 92 H 02/06/19 07:44 Respiratory Rate 18 02/11/19 08:01 Respiratory Effort 02/11/19 07:42 Respiratory Depth Normal 02/11/19 07:42 Respiratory Pattern Normal 02/11/19 07:42 Blood Pressure 162/74 H 02/11/19 07:25 Blood Pressure Mean 78 02/06/19 07:44 Blood Pressure Position Supine 02/04/19 08:00 Pulse Oximetry 91 L 02/11/19 09:43 Oxygen Delivery Method Room Air 02/11/19 09:43 Oxygen Flow Rate 0 02/11/19 09:43 Fraction of Inspired Oxygen (FIO2) 39 02/04/19 08:00 Pain Level 0 02/11/19 09:43 Comment 02/10/19 03:39 Intake & Output 02/10/19 02/10/19 02/11/19 11:59 23:59 11:59 Intake Total 500 / 1405 905 / 1405 660 / 660 Output Total 400 / 1700 1300 / 1700 500 / 500 Balance 100 / -295 -395 / -295 160 / 160 Weight 74.2 kg 72.3 kg Intake: IV 425 / 425 Oral 500 / 980 480 / 980 660 / 660 Output: Urine 400 / 1700 1300 / 1700 500 / 500 Other: Urine Color Yellow Yellow Urine Appearance Clear Clear Clear Urine Odor Normal Comment void x3 Mixed with stool. Stool Size Small Small Stool Characteristics Formed Soft Voiding Methods Bedside Commode Bedside Commode Completed studies during hospitalization [Text1]: Exam(s) 02/02/2019 a RAD:XR portable chest AP SYMPTOM/DIAGNOSIS: CHEST PAIN, SOB PORTABLE AP CHEST at 0946 hours: The heart is not enlarged. The lungs appear clear and well expanded. CONCLUSION: No evidence of acute disease. -------- Exam(s) a NM:NM MPI rest & stress grp Date of study: 02/05/2019 Impressions: Normal perfusion and contraction by [id number] Sestamibi [facility]. Summary: 1. Myocardial perfusion imaging: No myocardial perfusion defects noted. 2. The calculated left ventricular ejection fraction after stress: 75%. LV global systolic function is normal. No left ventricular regional motion abnormality. 3. Stress ECG conclusions: The stress ECG is negative. 4. Stress: There is resting hypertension with a hypertensive response to stress. Stress-induced atypical chest pain. Exam(s) 02/06/2019 a RAD:XR portable chest AP SYMPTOM/DIAGNOSIS: F/U CHF EXACERBATION, R/O PNA PORTABLE AP CHEST : 02/06 The heart is not enlarged. The right lung is clear. There is interval development of blunting of the costophrenic angle on the left with question of minimal streaky intrapulmonary densities since the previous chest film of 02/02/2019. CONCLUSION: Findings raising the possibility of new left pleural effusion and/or left lower lobe patchy consolidation. Appropriate follow up studies requested. The findings are suspicious for acute pneumonia. Labs on day of discharge: Labs from last 24 hours 02/11/19 02/11/19 07:08 07:08 WBC 13.07 H RBC 4.03 Hgb 11.8 L Hct 37.0 MCV 91.8 MCH 29.3 MCHC 31.9 L RDW 14.5 Plt Count 471 H MPV 9.3 Immature Gran % 1.9 Neutrophils % 83.8 Lymphocytes % 3.1 Monocytes % 11.1 Eosinophils % 0.0 Basophils % 0.1 Absolute Neutrophils 10.95 H Absolute Lymphocytes 0.41 L Absolute Monocytes 1.45 H Absolute Eosinophils 0.00 Absolute Basophils 0.01 Sodium 130 L Potassium 5.5 H Chloride 93 L Carbon Dioxide 33.4 H Anion Gap 3.6 BUN 24 H Creatinine 0.77 Estimated GFR/1.73 m2 >= 60.00 Glucose 96 Calcium 9.0 Magnesium 2.2 Sputum Culture Final 02/06/19-1023 Day 1 Result ISOLATES BELOW DAY 1 GROWTH RARE GROWTH ISOLATE 1 APPEARANCE Normal Brian Day 2 Result ISOLATES BELOW DAY 2 GROWTH RARE GROWTH ISOLATE 1 APPEARANCE Normal Brian DAY 2 GROWTH RARE GROWTH ISOLATE 2 APPEARANCE Fungus Day 3 Result ISOLATES BELOW DAY 3 GROWTH RARE GROWTH ISOLATE 1 APPEARANCE Normal Brian DAY 3 GROWTH RARE GROWTH ISOLATE 2 APPEARANCE Fungus Organism 1 NORMAL BRIAN GROWTH RARE GROWTH Organism 2 FUNGUS GROWTH RARE GROWTH Gram Stain Final 02/04/19-704 GRAM STAIN Rare White Blood Cells Rare Epithelial Cells No Bacteria Seen Blood Culture ( Age => 10 Yrs) Final 02/07/19-1406 NO GROWTH 120 HOURS Blood Culture ( Age => 9 Yrs) Final 02/07/19-1404 NO GROWTH 120 HOURS [facility] Medical History Arthritis (Acute 02/10/13) CVA (cerebral vascular accident) (Acute 02/10/13) Chronic obstructive lung disease (Acute) Fatigue (Acute 02/10/13) Osteoporosis (Acute 01/14/08) Discharge planning issues (Acute) Tachycardia (Acute) DVT prophylaxis (Acute) CAP (community acquired pneumonia) (Acute) HTN (hypertension) (Chronic) GERD (gastroesophageal reflux disease) (Chronic) COPD (chronic obstructive pulmonary disease) (Chronic) GERD (gastroesophageal reflux disease) (Chronic) HTN (hypertension) (Chronic) Surgical History Endoscopic Carpal Tunnel release (03/31/13) Family History Mother Essential hypertension Hyperlipidemia Father Heart disease Neoplasm Sister No problems noted. Sister No problems noted. Brother No problems noted. Brother No problems noted. Grandfather Stroke Grandfather Heart disease Grandmother Heart disease Grandmother Stroke Son Diabetes Essential hypertension Daughter No problems noted. Social History Smoking/Tobacco Use Status: Former Tobacco Use Alcohol Intake: never Drug use: Never Do you feel safe at home: Yes Do you feel safe in your relationship?: Yes
[2019-02-11 11:20] VITALS: BP 145/73; PULSE 75; RESP 18; TEMP 37.2; O2SAT 95
--- NOTE | 2019-02-11 14:21 | PT.INNT ---
Date of service: 02/11/19 Time of Service: 14:21 PT Notes 02/11/2019 Patient refused PT session, due to swelling in feet. She reports that she will be going home today.
== END 2019-02-11 13:02 | disposition home or self-care (01) | DRG 189 ==
LOC: ER 11:06 → ICU 14:26 → MS 02-06 11:04
PROVIDERS: Family Medicine; Admitting Provider Internal Medicine; Emergency Provider Physician Assistant; Visit Provider Internal Medicine
DX: J96.21 Acute and chronic respiratory failure with hypoxia; I50.33 Acute on chronic diastolic (congestive) heart failure; J44.1 Chronic obstructive pulmonary disease with (acute) exacerbation; E87.1 Hypo-osmolality and hyponatremia; J96.22 Acute and chronic respiratory failure with hypercapnia; R91.8 Other nonspecific abnormal finding of lung field; R07.9 Chest pain, unspecified; K21.9 Gastro-esophageal reflux disease without esophagitis; I10 Essential (primary) hypertension; E83.42 Hypomagnesemia; Z87.891 Personal history of nicotine dependence; E87.8 Other disorders of electrolyte and fluid balance, not elsewhere classified
CPT/HCPCS: 36410; 36415; 51702; 78452; 80048; 80053; 80061; 82805; 83721; 84145; 87040; 92610; 93016; 93018; 94640; 96365; 96366; 96367; 96375; 97110; 97162; 97165; 97530; 97535; 99223; 99232; 99233; 99239; 99254; 99285; 99291; J1650; 36600; 71045; 80202; 83735; 83880; 84484; 85025; 87070; 87205; 93017; 94660; 99284; J1940; J2060; J2543; J2785; J2930; J3370; J7512; J7613; J7620; J7644

== ENCOUNTER → 2019-02-04 07:59 | Outpatient (BNVA) | payer MEDICARE, SELFPAY ==
--- NOTE | 2019-02-12 15:28 | PT.INDS ---
Date of service: 02/12/19 PT Notes Inpatient Physical Therapy Discharge Summary Dates: 02/12/2019 Dates of Service: 02/04/2019 through 02/10/2019 This is a clinical summary of care provided on the duration of dates listed above. No charge was made in the completion of this documentation. Referring Doctor:Angelina Chino MD PT Orders: PT CONSULT: Eval and treat Precautions: Fall. Standard. Significantly limited endurance, needs frequent rests. Patient Profile/Admitting Diagnosis: Patient is a 68-year-old female who presented to the ED on 02/02/2019 with chief complaint of shortness of breath, productive cough with yellow sputum, chest tightness radiating to the left side of neck, bilateral lower extremity swelling, and orthopnea. Patient was diagnosed with Acute respiratory failure with hypoxia and hypercapnia, acute on chronic obstructive pulmonary disease, acute on chroninc CHF, and hypomagnesemia. Orders for physical therapy were received yesterday for functional mobility training and maximization of functional activity tolerance. PMHX: Medical History Arthritis (Acute 02/10/13) CVA (cerebral vascular accident) (Acute 02/10/13) Chronic obstructive lung disease (Acute) Fatigue (Acute 02/10/13) Osteoporosis (Acute 01/14/08) Discharge planning issues (Acute) Tachycardia (Acute) DVT prophylaxis (Acute) CAP (community acquired pneumonia) (Acute) HTN (hypertension) (Chronic) GERD (gastroesophageal reflux disease) (Chronic) COPD (chronic obstructive pulmonary disease) (Chronic) GERD (gastroesophageal reflux disease) (Chronic) HTN (hypertension) (Chronic) Surgical History Endoscopic Carpal Tunnel release (03/31/13) Social History/Home Situation: 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 She is independent with all aspects of ADLs with no assistive ambulatory device nor adaptive equipment. She still drives. She states she has 1 step to enter the house who he shares with her son and grandson. Since going home from her recent hospitalization, patient had been able to walk dog on her porch some 230 feet without undue fatigue nor shortness of breath. Current Functional Limitations: Patient has poor activity tolerance which has limited her ability to participate in all aspects of ADLs Equipment Owned/DME: [place] Subjective: NT Objective: General Observation: NT Mental Status: NT Pain: NT ROM: Right Upper Extremity: Shoulder Flexion WFL. Shoulder abduction WFL. Elbow flexion WFL. Wrist flexion WFL. Functional opening and closing of hand WFL. Left Upper Extremity: Shoulder Flexion WFL. Shoulder abduction WFL. Elbow flexion WFL. Wrist flexion WFL. Functional opening and closing of hand WFL. Right Lower Extremity: Hip flexion WFL. Hip abduction WFL. Knee flexion WFL. Ankle dorsiflexion WFL. Ankle plantarflexion WFL. Left Lower Extremity: Hip flexion WFL. Hip abduction WFL. Knee flexion WFL. Ankle dorsiflexion WFL. Ankle plantarflexion WFL. STRENGTH: Right Upper Extremity: Shoulder flexors 5/5. Shoulder abductors 5/5. Elbow flexors 5/5. Elbow extensors 5/5. Analytic Manager strong. Left Upper Extremity: Shoulder flexors 5/5. Shoulder abductors 5/5. Elbow flexors 5/5. Elbow extensors 5/5. Analytic Manager strong. Right Lower Extremity: Hip flexors 4/5. Hip abductors 4/5. Knee flexors 4/5. Knee extensors 4/5. Ankle dorsiflexors 5/5. Ankle plantarflexors 5/5. Right Lower Extremity:Hip flexors 4/5. Hip abductors 4/5. Knee flexors 4/5. Knee extensors 4/5. Ankle dorsiflexors 5/5. Ankle plantarflexors 5/5. Sensation: Intact to B UE LE as to pain and pressure. BED MOBILITY LEVELS/TRANSFERS Rolling I Supine to sit I Sit to supine I Sit to stand I Stand to sit I Bed to chair I Chair to bed I Gait: Patient only able to tolerate 200 feet with 2 standing rests using FWW with SaO2 of 84%-95% on RA. Balance: Static Sitting: Good Dynamic Sitting: Good Static Standing: Fair Dynamic Standing: Fair Assessment: Patient is a 68-year-old female referred to physical therapy services with the diagnosis of progression of community-acquired pneumonia acute on chronic COPD. Patient presents with clinical signs and symptoms consistent with current/admitting diagnoses that have resulted to mobility limitations, gait instability, generalized weakness, and impairment of motor control as demonstrated by the following impairment level findings: 1. Decreased strength to B LE major muscle groups 2. Impaired sitting/standing balance 3. Impaired activity tolerance Impairments are contributing to the following functional limitations: 1. Increased completion time for bed mobility skills 2. Increased completion time for transfers 3. Inability to safely ambulate without assistive device and physical assistance 4. Increase completion time for mobility ADL performance 5. Increased fall risk 6. Inability to negotiate steps alone safely Goals: Goals X1 week 1. Supine-Sit independent MET 2. Sit-Supine independent MET 3. Sit-Stand independent MET 4. Stand-Sit independent MET 5. Bed-Chair independent MET 6. Chair-Bed independent MET 7. Independent gait on level surface without use of assistive device for at least 100 feet without report of pain nor dyspnea NOT MET 8. Independent stair negotiation while holding onto bilateral rails for at least 3 steps without report of pain nor dyspnea NOT MET 9. Independent with home exercise program NOT MET 10. Good static and dynamic standing balance/tolerance NOT MET DISCHARGE RECOMMENDATIONS: Patient will benefit from home health PT services in order to progress mobility level using least restrictive assistive ambulatory device/using no device, assess home safety, identify additional equipment needs, and establish a functional maintenance program that will increase ability of patient to remain at home. TREATMENT CODE/TIME: MT Thank you for this referral. Susana Lainez, PT, DPT, CLT [facility]
--- NOTE | 2019-02-16 15:41 | INDS_ITS ---
Date of service: 02/12/19 PT Notes Inpatient Physical Therapy Discharge Summary Dates: 02/12/2019 Dates of Service: 02/04/2019 through 02/10/2019 This is a clinical summary of care provided on the duration of dates listed above. No charge was made in the completion of this documentation. Referring Doctor:Angelina Chino MD PT Orders: PT CONSULT: Eval and treat Precautions: Fall. Standard. Significantly limited endurance, needs frequent rests. Patient Profile/Admitting Diagnosis: Patient is a 68-year-old female who presented to the ED on 02/02/2019 with chief complaint of shortness of breath, productive cough with yellow sputum, chest tightness radiating to the left side of neck, bilateral lower extremity swelling, and orthopnea. Patient was diagnosed with Acute respiratory failure with hypoxia and hypercapnia, acute on chronic obstructive pulmonary disease, acute on chroninc CHF, and hypomagnesemia. Orders for physical therapy were received yesterday for functional mobility training and maximization of functional activity tolerance. PMHX: Medical History Arthritis (Acute 02/10/13) CVA (cerebral vascular accident) (Acute 02/10/13) Chronic obstructive lung disease (Acute) Fatigue (Acute 02/10/13) Osteoporosis (Acute 01/14/08) Discharge planning issues (Acute) Tachycardia (Acute) DVT prophylaxis (Acute) CAP (community acquired pneumonia) (Acute) HTN (hypertension) (Chronic) GERD (gastroesophageal reflux disease) (Chronic) COPD (chronic obstructive pulmonary disease) (Chronic) GERD (gastroesophageal reflux disease) (Chronic) HTN (hypertension) (Chronic) Surgical History Endoscopic Carpal Tunnel release (03/31/13) Social History/Home Situation: 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 She is independent with all aspects of ADLs with no assistive ambulatory device nor adaptive equipment. She still drives. She states she has 1 step to enter the house who he shares with her son and grandson. Since going home from her recent hospitalization, patient had been able to walk dog on her porch some 230 feet without undue fatigue nor shortness of breath. Current Functional Limitations: Patient has poor activity tolerance which has limited her ability to participate in all aspects of ADLs Equipment Owned/DME: [place] Subjective: NT Objective: General Observation: NT Mental Status: NT Pain: NT ROM: Right Upper Extremity: Shoulder Flexion WFL. Shoulder abduction WFL. Elbow flexion WFL. Wrist flexion WFL. Functional opening and closing of hand WFL. Left Upper Extremity: Shoulder Flexion WFL. Shoulder abduction WFL. Elbow flexion WFL. Wrist flexion WFL. Functional opening and closing of hand WFL. Right Lower Extremity: Hip flexion WFL. Hip abduction WFL. Knee flexion WFL. Ankle dorsiflexion WFL. Ankle plantarflexion WFL. Left Lower Extremity: Hip flexion WFL. Hip abduction WFL. Knee flexion WFL. Ankle dorsiflexion WFL. Ankle plantarflexion WFL. STRENGTH: Right Upper Extremity: Shoulder flexors 5/5. Shoulder abductors 5/5. Elbow f lexors 5/5. Elbow extensors 5/5. Physician Neonatology strong. Left Upper Extremity: Shoulder flexors 5/5. Shoulder abductors 5/5. Elbow flexors 5/5. Elbow extensors 5/5. Physician Neonatology strong. Right Lower Extremity: Hip flexors 4/5. Hip abductors 4/5. Knee flexors 4/5. Knee extensors 4/5. Ankle dorsiflexors 5/5. Ankle plantarflexors 5/5. Right Lower Extremity:Hip flexors 4/5. Hip abductors 4/5. Knee flexors 4/5. Knee extensors 4/5. Ankle dorsiflexors 5/5. Ankle plantarflexors 5/5. Sensation: Intact to B UE LE as to pain and pressure. BED MOBILITY LEVELS/TRANSFERS Rolling I Supine to sit I Sit to supine I Sit to stand I Stand to sit I Bed to chair I Chair to bed I Gait: Patient only able to tolerate 200 feet with 2 standing rests using FWW with SaO2 of 84%-95% on RA. Balance: Static Sitting: Good Dynamic Sitting: Good Static Standing: Fair Dynamic Standing: Fair Assessment: Patient is a 68-year-old female referred to physical therapy services with the diagnosis of progression of community-acquired pneumonia acute on chronic COPD. Patient presents with clinical signs and symptoms consistent with current/admitting diagnoses that have resulted to mobility limitations, gait instability, generalized weakness, and impairment of motor control as demonstrated by the following impairment level findings: 1. Decreased strength to B LE major muscle groups 2. Impaired sitting/standing balance 3. Impaired activity tolerance Impairments are contributing to the following functional limitations: 1. Increased completion time for bed mobility skills 2. Increased completion time for transfers 3. Inability to safely ambulate without assistive device and physical assistance 4. Increase completion time for mobility ADL performance 5. Increased fall risk 6. Inability to negotiate steps alone safely Goals: Goals X1 week 1. Supine-Sit independent MET 2. Sit-Supine independent MET 3. Sit-Stand independent MET 4. Stand-Sit independent MET 5. Bed-Chair independent MET 6. Chair-Bed independent MET 7. Independent gait on level surface without use of assistive device for at least 100 feet without report of pain nor dyspnea NOT MET 8. Independent stair negotiation while holding onto bilateral rails for at least 3 steps without report of pain nor dyspnea NOT MET 9. Independent with home exercise program NOT MET 10. Good static and dynamic standing balance/tolerance NOT MET DISCHARGE RECOMMENDATIONS: Patient will benefit from home health PT services in order to progress mobility level using least restrictive assistive ambulatory device/using no device, assess home safety, identify additional equipment needs, and establish a functional maintenance program that will increase ability of patient to remain at home. TREATMENT CODE/TIME: OK Thank you for this referral. Susana Lainez, PT, DPT, CLT [facility]
== END ==
PROVIDERS: Visit Provider Student in an Organized Health Care Education/Training Program
DX: R69 Illness, unspecified (principal)

== ENCOUNTER 2019-02-16 03:00 | Outpatient (CLI) | payer MEDICARE, SELFPAY ==
[2019-02-16 10:49] LABS: Abs Immature Grans 0.36 k/cumm (0.0-0.09); Absolute Basophil Count 0.02 k/cumm (0.0-0.2); Basophils % 0.1; Eosinophils % 0.2; HCT 35.9 % (36.0-46.0); HGB 11.1 g/dL (12.0-15.5); Immature Grans % 1.8; Lymphocytes % 2.6; Mean Corp. HGB Concentration 30.9 g/dL (32.0-36.0); Mean Corpuscular Hemoglobin 29.4 pg (27.0-33.0); Mean Platelet Volume 9.3 fL (8.0-11.0); Monocytes % 3.5; Neutrophils % 91.8; Platelet Count 607 x1000/uL (130-400); RBC 3.78 m/cumm (4.00-5.20); RBC Distribution Width 16.2 % (11.7-14.6); White Blood Cell Count 19.73 k/cumm (4.4-10.8)
[2019-02-16 10:54] LABS: Absolute Eosinophil Count 0.04 k/cumm (0.0-0.7); Absolute Lymphocyte Count 0.51 k/cumm (1.2-3.4); Absolute Monocyte Count 0.69 k/cumm (0.11-0.7); Absolute Neutrophil Count 18.11 k/cumm (1.2-6.7)
[2019-02-16 11:58] LABS: Anion Gap 10.1 mmol/L (3-11); BUN 21 mg/dL (7-18); CO2 31.9 mmol/L (21.0-32.0); CREATININE 0.97 mg/dL (0.55-1.02); Calcium 9.1 mg/dL (8.5-10.1); Chloride 97 mmol/L (98-107); Estimated GFR 56.94 (mL/min/1.73m2); Glucose 96 mg/dL (70-100); Potassium 4.3 mmol/L (3.5-5.1); Sodium 139 mmol/L (136-145)
== END 2019-02-16 03:20 ==
PROVIDERS: Visit Provider Internal Medicine
DX: I50.33 Acute on chronic diastolic (congestive) heart failure (principal); K21.9 Gastro-esophageal reflux disease without esophagitis
CPT/HCPCS: 36415; 80048; 85025

== ENCOUNTER 2019-02-19 02:09 | Outpatient (CLI) | payer MEDICARE, SELFPAY ==
[2019-02-19 12:01] LABS: Magnesium 1.5 mg/dL (1.8-2.4)
[2019-02-19 12:08] LABS: Abs Immature Grans 0.14 k/cumm (0.0-0.09); Absolute Basophil Count 0.02 k/cumm (0.0-0.2); Absolute Lymphocyte Count 0.38 k/cumm (1.2-3.4); Basophils % 0.1; Eosinophils % 0.3; HCT 33.7 % (36.0-46.0); HGB 10.3 g/dL (12.0-15.5); Immature Grans % 0.7; Mean Corp. HGB Concentration 30.6 g/dL (32.0-36.0); Mean Corpuscular Hemoglobin 29.4 pg (27.0-33.0); Mean Corpuscular Volume 96.3 fL (80-95); Mean Platelet Volume 9.4 fL (8.0-11.0); Neutrophils % 93.9; Platelet Count 516 x1000/uL (130-400); RBC Distribution Width 16.4 % (11.7-14.6); White Blood Cell Count 19.18 k/cumm (4.4-10.8)
[2019-02-19 12:13] LABS: Absolute Eosinophil Count 0.06 k/cumm (0.0-0.7); Absolute Monocyte Count 0.58 k/cumm (0.11-0.7); Absolute Neutrophil Count 18.01 k/cumm (1.2-6.7)
== END 2019-02-19 02:29 ==
DX: E83.42 Hypomagnesemia (principal); J18.9 Pneumonia, unspecified organism; J44.9 Chronic obstructive pulmonary disease, unspecified; R00.0 Tachycardia, unspecified
CPT/HCPCS: 36415; 83735; 85025

== ENCOUNTER 2019-02-27 02:06 | Outpatient (CLI) | payer MEDICARE, SELFPAY ==
[2019-02-27 11:09] LABS: HCT 33.5 % (36.0-46.0); HGB 10.3 g/dL (12.0-15.5); Mean Corp. HGB Concentration 30.7 g/dL (32.0-36.0); Mean Corpuscular Hemoglobin 29.4 pg (27.0-33.0); Mean Corpuscular Volume 95.7 fL (80-95); Mean Platelet Volume 9.2 fL (8.0-11.0); Platelet Count 331 x1000/uL (130-400); RBC Distribution Width 15.6 % (11.7-14.6); White Blood Cell Count 8.48 k/cumm (4.4-10.8)
[2019-02-27 11:17] LABS: Magnesium 1.3 mg/dL (1.8-2.4)
== END 2019-02-27 02:26 ==
DX: D50.9 Iron deficiency anemia, unspecified (principal); E83.42 Hypomagnesemia; J18.9 Pneumonia, unspecified organism; R53.83 Other fatigue
CPT/HCPCS: 36415; 85027; 83735

== ENCOUNTER 2019-03-09 02:22 | Outpatient (CLI) | payer MEDICARE, SELFPAY ==
[2019-03-09 10:57] LABS: Anion Gap 10.1 mmol/L (3-11); BUN 13 mg/dL (7-18); CO2 28.9 mmol/L (21.0-32.0); CREATININE 0.95 mg/dL (0.55-1.02); Calcium 9.6 mg/dL (8.5-10.1); Chloride 95 mmol/L (98-107); Estimated GFR 58.33 (mL/min/1.73m2); Glucose 111 mg/dL (70-100); Magnesium 1.5 mg/dL (1.8-2.4); Potassium 4.6 mmol/L (3.5-5.1); Sodium 134 mmol/L (136-145)
== END 2019-03-09 02:42 ==
DX: E83.42 Hypomagnesemia (principal); I10 Essential (primary) hypertension
CPT/HCPCS: 36415; 80048; 83735

== ENCOUNTER 2019-04-10 02:21 | Outpatient (CLI) | payer MEDICARE, SELFPAY ==
[2019-04-10 09:48] LABS: Anion Gap 10.5 mmol/L (3-11); BUN 14 mg/dL (7-18); CO2 29.5 mmol/L (21.0-32.0); CREATININE 0.83 mg/dL (0.55-1.02); Calcium 9.5 mg/dL (8.5-10.1); Chloride 100 mmol/L (98-107); Glucose 102 mg/dL (70-100); Potassium 4.8 mmol/L (3.5-5.1); Sodium 140 mmol/L (136-145)
== END 2019-04-10 02:41 ==
DX: I10 Essential (primary) hypertension (principal); R00.0 Tachycardia, unspecified; J44.9 Chronic obstructive pulmonary disease, unspecified
CPT/HCPCS: 36415; 80048

== ENCOUNTER 2019-10-23 08:53 | Emergency (ER) | payer MEDICARE, SELFPAY ==
[2019-10-23 08:58] VITALS: BP 190/78; PULSE 92; RESP 18; TEMP 36.4; O2SAT 98
--- NOTE | 2019-10-23 09:11 | W.ED.GENAD ---
Discharge Plan Disposition Patient Disposition: HOME Condition: Stable Discharge Details Chief Complaint: FacialProb Clinical Impression: Lymphadenopathy of head and neck region Primary Care Provider: Yazmin Yañez ED Provider: Ofe Granda Home Meds and New Rx's Prescriptions: Continued Prevnar 13 (PF) 0.5 mL syringe 0.5 ml IM ONCE Qty: 0.5 RF: 0 Shingrix (PF) 50 mcg/0.5 mL suspension for reconstitution 0.5 ml IM ONCE Qty: 1 RF: 0 montelukast 10 mg tablet 10 mg PO DAILY Qty: 90 RF: 3 fluticasone propion-salmeterol [Advair Diskus] 250-50 mcg/dose blister with device 1 inh Inhalation BID Qty: 3 RF: 4 esomeprazole magnesium 40 mg capsule,delayed release(DR/EC) 40 mg PO DAILY Qty: 90 RF: 3 amlodipine 5 mg tablet 5 mg PO DAILY Qty: 90 RF: 3 furosemide 20 mg tablet See Rx Instructions PO .COMPLEX Qty: 135 RF: 4 digoxin 125 mcg tablet 0.125 mg PO QAM Qty: 90 RF: 4 albuterol sulfate 2.5 MG/3 ML solution for nebulization 1 amp Inhalation QID PRN Qty: 50 RF: 11 Combivent Respimat 20-100 mcg/actuation mist 1 puff IH QID Qty: 12 RF: 4 acetaminophen 500 mg Tablet 1,000 mg PO PRN PRNRF: 0 guaifenesin [Mucinex] 600 mg Tablet Extended Release 12hr 600 mg PO BID PRNRF: 0 Discharge Instructions Instructions: Lymphadenopathy (ED), Parotid Duct Obstruction (ED) Additional Instructions: Follow up with primary care provider in 3-5 days. Return to ED sooner if any worsening or concerns. Lymphnodes can swell for a number of reasons. Today your CBC is unchanged and largely normal. [place] screen negative. Return to the ED if any increase in size, problems swallowing, problems turning her neck. Try sucking on sour hard candy such as lemon drops for possible parotiditis.Massage the area and apply moist heat. Referrals: Kelsey Avila [Emergency Nurse] - Medical Decision Making 69-year-old female presents with left-sided unilateral lymphadenopathy to her left parotid/tonsillar area. She noticed this 1 week ago. Is mildly tender to touch, no surrounding erythema, no drainage. She has full range of motion of her neck. Denies any ear pain, throat pain or tooth pain no fever chills or night sweats. CBC and mono screen ordered. Discussed patient with ER attending he does not recommend imaging at this time. If abnormal labs will consider US or CT. Differential Dx includes: Normal lymphadenopathy, Parotoditis, Levi Clarke virus, Lymphoma. 0940: Negative [place] screen 0942: CBC results show Slightly elevated platelets at 463 and slightly low lymphocytes at 0.99. Upon examination of past labs, this is consistent with previous results. No acute change. Plan is to discharge patient with strict return instructions and given information on parotiditis and lymphadenopathy. Patient instructed to follow-up with PCP in 3 to 5 days and was put on a call list for ear nose and throat follow-up within 2 weeks. Patient verbalized understanding. HPI General Date/Time Provider Initiated Documentation: 10/23/19 08:57. Limitations to Documentation: no limitations. Information obtained by: patient. History of Present Illness described as mild, HPI Narrative: 69-year-old female presents with left-sided lymphadenopathy x1 week. Patient denies ear pain, throat pain, tooth pain, night sweats or any other symptoms. Denies fever or chills. Full range of motion noted to her neck. There is a proximately 3 cm x 3 cm swollen lymph node noted to her left Parotid and tonsillar area. No surrounding erythema or drainage. No other swollen lymph nodes noted to her axillary or supraclavicular. Related Data Home Medications Medication Instructions Recorded Confirmed albuterol sulfate 1 amp INHALATION QID PRN #50 amp 05/27/18 10/23/19 guaifenesin [Mucinex] 600 mg PO BID PRN 01/12/19 10/23/19 esomeprazole magnesium 40 mg 40 mg PO DAILY #90 cap 03/03/19 10/23/19 capsule,delayed release amlodipine 5 mg tablet 5 mg PO DAILY #90 tab 03/10/19 10/23/19 digoxin 125 mcg (0.125 mg) tablet 0.125 mg PO QAM #90 tab 04/14/19 10/23/19 furosemide 20 mg tablet See Rx Instructions PO .COMPLEX 04/14/19 10/23/19 #135 tab-cap fluticasone 250 mcg-salmeterol 50 1 inh INHALATION BID #3 each 06/04/19 10/23/19 mcg/dose blistr powdr for inhalation montelukast 10 mg tablet 10 mg PO DAILY #90 tab-cap 06/04/19 10/23/19 pneumoc 13-kaya conj-dip cr(PF) 0.5 0.5 ml IM ONCE #0.5 ml 06/04/19 10/23/19 mL IM syringe varicella-zoster [id number] (PF) 50 0.5 ml IM ONCE #1 each 06/04/19 10/23/19 mcg/0.5 mL IM susp, kit ipratropium 20 mcg-albuterol 100 1 puff IH QID #12 gm 07/13/19 10/23/19 mcg/actuation mist for inhalation acetaminophen 1,000 mg PO PRN PRN 10/23/19 10/23/19 Previous Rx's Medication Instructions Recorded albuterol sulfate 1 amp INHALATION QID PRN #50 amp 05/27/18 esomeprazole magnesium 40 mg 40 mg PO DAILY #90 cap 03/03/19 capsule,delayed release amlodipine 5 mg tablet 5 mg PO DAILY #90 tab 03/10/19 digoxin 125 mcg (0.125 mg) tablet 0.125 mg PO QAM #90 tab 04/14/19 furosemide 20 mg tablet See Rx Instructions PO .COMPLEX 04/14/19 #135 tab-cap fluticasone 250 mcg-salmeterol 50 1 inh INHALATION BID #3 each 06/04/19 mcg/dose blistr powdr for inhalation montelukast 10 mg tablet 10 mg PO DAILY #90 tab-cap 06/04/19 pneumoc 13-kaya conj-dip cr(PF) 0.5 0.5 ml IM ONCE #0.5 ml 06/04/19 mL IM syringe varicella-zoster [id number] (PF) 50 0.5 ml IM ONCE #1 each 06/04/19 mcg/0.5 mL IM susp, kit ipratropium 20 mcg-albuterol 100 1 puff IH QID #12 gm 07/13/19 mcg/actuation mist for inhalation Allergies Allergy/AdvReac Type Severity Reaction Status Date / Time diltiazem Allergy Intermediate LE and Verified 10/23/19 09:01 Facial Edema metoprolol Allergy Intermediate Fluid Verified 10/23/19 09:01 Retention hydrochlorothiazide Allergy Mild rash Verified 10/23/19 09:01 Sulfa (Sulfonamide Allergy Unknown Verified 10/23/19 09:01 Antibiotics) lisinopril AdvReac Mild did not Verified 10/23/19 09:01 feel well General Stated Complaint: FacialProb KAYCE: 3 Review of Systems Narrative: Constitutional: Negative for weight loss, alert and oriented, well groomed, normal body habitus, appears comfortable. HEENT: Denies trauma, headaches, blurry vision, nasal discharge, sore throat, trouble swallowing. Positive left lymphadenopathy. Chest: Denies chest pain, palpitations, irregular rhythm, hypertension. Respiratory: Denies Shortness of breath, cough, hemoptysis. GI: Denies abdominal pain, nausea, vomiting, diarrhea, constipation. : Denies dysuria, hematuria, flank pain, vaginal bleeding, rectal bleeding. Neuro: Denies dizziness, blurry vision, weakness, syncope, headache or facial numbness. Hematologic: Denies easy bruising, intolerance to heat or cold, hair loss. COUNT INCLUDES THE [facility] Medical History Acute on chronic diastolic CHF (congestive heart failure) (Inactive) Acute on chronic respiratory failure with hypoxia and hypercapnia (Inactive) Acute respiratory failure with hypoxia and hypercapnia (Inactive) Arthritis (Acute 02/10/13) CAP (community acquired pneumonia) (Resolved) Cervical arthritis with myelopathy (Acute) CHF (congestive heart failure) (Chronic) Chronic obstructive lung disease (Acute) h/o tobacco use, quit 2008 COPD (chronic obstructive pulmonary disease) (Chronic) CVA (cerebral vascular accident) (Resolved 02/10/13) 1987 with visual loss (? due to migraine) Discharge planning issues (Acute) DVT prophylaxis (Chronic) Fatigue (Acute 02/10/13) GERD (gastroesophageal reflux disease) (Chronic) GERD (gastroesophageal reflux disease) (Chronic) HTN (hypertension) (Chronic) HTN (hypertension) (Chronic) Osteoporosis (Acute 01/14/08) Tachycardia (Acute) Surgical History Endoscopic Carpal Tunnel release (03/31/13) Left 7.2.13 Family History Mother Essential hypertension Hyperlipidemia Father Heart disease Neoplasm LUNG Lung cancer Sister No problems noted. Sister No problems noted. Brother No problems noted. Brother No problems noted. Maternal Grandfather Stroke Paternal Grandfather Heart disease Maternal Grandmother Heart disease Paternal Grandmother Stroke Son Diabetes Essential hypertension Daughter No problems noted. Social History Smoking/Tobacco Use Status: Former Tobacco Use Tobacco: How many years used: 50 Alcohol Intake: never Drug use: Never Counseling given: No Counseling provided: none Caregiver/Support person: No Household members: children Housing: house Communication Needs: None Do you need help understanding health information?: Never Pets and animals: Yes Pets and animals: dog(s) Sexually active: No Do you think of yourself as: straight/heterosexual Current gender identity: female What is your relationship status?: How often do you talk on the phone with friends or family?: once per week How often do you get together with friends or relatives?: decline to answer How often do you attend confucianism or spiritism services?: decline to answer Do you belong to any clubs or organized social groups?: no Panel score (0-1 are the most socially isolated patients): 0 What type of physical activity do you participate in: none Holly/Quaker: None Special holly needs: No Seatbelt use: never Helmet use: No 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 Do you feel safe at home: Yes Do you feel safe in your relationship?: Yes Exam Const General: cooperative, healthy appearing, comfortable and no acute distress Nutritional Appearance: average body habitus Orientation: alert, awake and oriented x3 HENMT Head: normal to inspection, normocephalic and atraumatic Ears: hearing grossly normal bilaterally, external ears normal and TM's normal bilaterally General nose exam: external nose normal Face and sinus: no ecchymosis, no erythema and no edema Neck Neck: lymphadenopathy Thyroid: thyroid normal Lymphatic: lymphadenopathy (left tonsillar/parotid/ movable, soft) Chest Chest: normal inspection of the chest Resp Effort & Inspection: normal respiratory effort Auscultation: clear to auscultation bilaterally, no rales, no rhonchi and no wheezes Cardio Jugular venous pressure: no JVD Rate: regular rate Rhythm: regular rhythm Heart Sounds: S1 normal and S2 normal Bruits: no carotid bruits Pulses: radial pulses present Course Vital Signs Vital signs: Vital Signs Temperature 36.4 C L 10/23/19 08:58 Pulse 92 H 10/23/19 08:58 Respiratory Rate 18 10/23/19 08:58 Blood Pressure 190/78 H 10/23/19 08:58 Pulse Oximetry 98 10/23/19 08:58 Temperature 36.4 C L 10/23/19 08:58 Temperature Source Skin 10/23/19 08:58 Pulse 92 H 10/23/19 08:58 Respiratory Rate 18 10/23/19 08:58 Respiratory Effort 10/23/19 09:02 Blood Pressure 190/78 H 10/23/19 08:58 Pulse Oximetry 98 10/23/19 08:58 Oxygen Delivery Method Room Air 10/23/19 08:58 Oxygen Flow Rate 0 10/23/19 08:58 Pain Level 4 10/23/19 08:58
[2019-10-23 09:36] LABS: Abs Immature Grans 0.02 k/cumm (0.0-0.09); Absolute Basophil Count 0.05 k/cumm (0.0-0.2); Absolute Eosinophil Count 0.24 k/cumm (0.0-0.7); Absolute Lymphocyte Count 0.99 k/cumm (1.2-3.4); Absolute Monocyte Count 0.64 k/cumm (0.11-0.7); Basophils % 0.6; Eosinophils % 2.9; HCT 41.1 % (36.0-46.0); HGB 12.8 g/dL (12.0-15.5); Immature Grans % 0.2 %; Lymphocytes % 12.2; Mean Corp. HGB Concentration 31.1 g/dL (32.0-36.0); Mean Corpuscular Volume 89.9 fL (80-95); Monocytes % 7.9; Neutrophils % 76.2; Platelet Count 463 x1000/uL (130-400); RBC 4.57 m/cumm (4.00-5.20); RBC Distribution Width 13.7 % (11.7-14.6); White Blood Cell Count 8.14 k/cumm (4.4-10.8)
[2019-10-23 09:39] LABS: Mono Screening Negative (Negative)
[2019-10-23 10:51] VITALS: BP 190/78; PULSE 92; RESP 18; TEMP 36.4; O2SAT 98
--- NOTE | 2019-10-23 13:19 | NUR.NOTE ---
Nursing Note: faxed referral to ent kierra barrera
== END 2019-10-23 10:48 | disposition home or self-care (01) ==
PROVIDERS: Emergency Provider Registered Nurse Emergency
DX: R59.0 Localized enlarged lymph nodes (principal); I11.0 Hypertensive heart disease with heart failure; I50.33 Acute on chronic diastolic (congestive) heart failure; J44.9 Chronic obstructive pulmonary disease, unspecified; Z87.891 Personal history of nicotine dependence
CPT/HCPCS: 36415; 99283; 85025; 86308

== ENCOUNTER 2019-11-24 02:02 | Outpatient (CLI) | payer MEDICARE, SELFPAY ==
[2019-11-24 09:10] LABS: Estimated GFR 54.81 (mL/min/1.73m2)
[2019-11-24] MEDS: Normal Saline Flush 10 ML SYR IVP (10:00)
[2019-11-24] MEDS: Gadoterate meglumine 20 ML VIAL 14 ML IVP (10:01)
--- NOTE | 2019-11-24 10:21 | DI.MRI_ITS ---
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 TECHNIQUE: Multiplanar multisequence MRI was performed. COMPARISON: No exams were available for comparison FINDINGS: MR examination of the cervical facial region was performed. Patient reportedly has suspicion of paro tid gland mass on the left. Visualized portions of the brain are unremarkable. Visualized orbits and paranasal sinuses are unrem arkable. Temporal bone structures appear intact. No cervical adenopathy. Normal appearance of righ t parotid and submandibular glands, normal appearance of left submandibular gland. There is a bilobed fairly well-circumscribed mass of the left parotid gland, superficial lobe compone nt measures roughly 22 x 25 x 30 millimeters and the deep lobe component measures up to about 41 x 16 millimeters on transaxial imaging. This is of moderately heterogeneous signal with predominantly hi gh signal on T2 weighted imaging and intermediate signal on T1 weighted imaging, the deep lobe compon ent is of fairly low signal on T1 weighted imaging. There is enhancement of superficial and deep lobe components on post contrast imaging in a moderately heterogeneous fashion. No gross invasion of surrounding structures. The mass does extend medially to and mildly distorts the parapharyngeal fat. IMPRESSION: Large bilobed left parotid gland mass, no gross evidence of invasive features or associated adenopath y. 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 DATA REPOSITORY:
== END 2019-11-24 02:22 ==
PROVIDERS: Visit Provider Family Medicine
DX: R22.1 Localized swelling, mass and lump, neck (principal); D49.0 Neoplasm of unspecified behavior of digestive system
CPT/HCPCS: 70543; 82565

== ENCOUNTER 2021-06-19 15:13 | Outpatient (REF) | payer MEDICARE, SELFPAY ==
[2021-06-19 13:11] LABS: ALT 27 U/L (14-59); AST 18 U/L (15-37); Albumin 4.2 g/dL (3.4-5.0); Alkaline Phosphatase 110 U/L (46-116); Anion Gap 7.8 mmol/L (3-11); BUN 17 mg/dL (7-18); Bilirubin, Total 0.3 mg/dL (0.2-1.0); CO2 32.2 mmol/L (21.0-32.0); Calcium 9.5 mg/dL (8.5-10.1); Chloride 99 mmol/L (98-107); Estimated GFR 54.66 (mL/min/1.73m2); Glucose 105 mg/dL (74-106); Potassium 4.8 mmol/L (3.5-5.1); Sodium 139 mmol/L (136-145); Total Protein 7.9 g/dL (6.4-8.2)
== END 2021-06-19 15:14 | disposition home or self-care (01) ==
LOC: LBN 15:13
DX: I10 Essential (primary) hypertension (principal); I63.9 Cerebral infarction, unspecified
CPT/HCPCS: 80053

== ENCOUNTER 2021-08-08 11:19 | Outpatient (REF) | payer MEDICARE, SELFPAY ==
[2021-08-09 13:55] LABS: COVID-19 RT-PCR UVMMC Result Negative (Negative)
== END 2021-08-08 11:20 | disposition home or self-care (01) ==
LOC: LBN 11:19
PROVIDERS: Visit Provider Family Medicine
DX: Z20.822 Contact with and (suspected) exposure to COVID-19 (principal); R50.9 Fever, unspecified
CPT/HCPCS: U0003; U0005

== ENCOUNTER 2021-08-23 12:29 | Outpatient (REF) | payer MEDICARE, SELFPAY ==
[2021-08-26 13:35] LABS: COVID-19 RT-PCR UVMMC Result Positive (Negative)
== END 2021-08-23 12:30 | disposition home or self-care (01) ==
LOC: LBN 12:29
PROVIDERS: Visit Provider Family Medicine
DX: Z20.822 Contact with and (suspected) exposure to COVID-19 (principal); J44.1 Chronic obstructive pulmonary disease with (acute) exacerbation
CPT/HCPCS: U0003; 87070; 87205

== ENCOUNTER 2022-04-01 07:34 | Emergency (ER) | payer OTHER, SELFPAY ==
[2022-04-01 07:53] VITALS: BP 160/71; PULSE 107; TEMP 36.8; O2SAT 86
--- NOTE | 2022-04-01 08:26 | ED.GENADUL_ITS ---
Discharge Plan Disposition Patient Disposition: HOME Condition: Stable Discharge Details Clinical Impression: Acute exacerbation of chronic obstructive pulmonary disease (COPD), Pneumonia Primary Care Provider: Yazmin Yañez ED Provider: Khadra Long Home Meds and New Rx's Prescriptions: New levofloxacin 750 mg tablet 750 mg PO DAILY Qty: 5 0RF prednisone 20 mg tablet 40 mg PO DAILY 4 Days Qty: 8 0RF Continued digoxin 125 mcg (0.125 mg) tablet 125 mcg PO QAM Qty: 90 4RF esomeprazole magnesium 40 mg capsule,delayed release(DR/EC) 40 mg PO DAILY Qty: 90 3RF fluticasone propion-salmeterol [Advair Diskus] 250-50 mcg/dose blister with device 1 inh Inhalation BID Qty: 3 4RF furosemide 20 mg tablet See Rx Instructions PO .COMPLEX Qty: 135 4RF Rx Instructions: Alternating 20 mg and 40 mg PO every other day. Combivent Respimat 20-100 mcg/actuation mist 1 puff IH QID Qty: 12 4RF Rx Instructions: space evenly during waking hours montelukast 10 mg tablet 10 mg PO DAILY Qty: 90 3RF levofloxacin 500 mg tablet 500 mg PO DAILY Qty: 7 0RF prednisone 20 mg tablet See Rx Instructions PO DAILY Qty: 14 0RF Rx Instructions: PO daily; two tabs a day for 4 days then 1 tab a day for 4 days , then 1/2 tab a day for 4 days albuterol sulfate 2.5 MG/3 ML solution for nebulization 1 amp Inhalation QID PRN Qty: 50 11RF Rx Instructions: DX: J44.9 amlodipine 5 mg tablet 5 mg PO BID Qty: 180 3RF codeine-guaifenesin 10-100 mg/5 mL liquid See Rx Instructions PO Q6H PRN (Reason: cough) Qty: 120 0RF Rx Instructions: one to two teaspoons PO every 6 hours PRN; acetaminophen 500 mg Tablet 1,000 mg PO PRN PRN Discharge Instructions Instructions: COPD (Chronic Obstructive Pulmonary Disease) (ED), Pneumonia (ED) Additional Instructions: Your x-ray is concerning for pneumonia. Her lungs are also quite wheezy and your oxygen was low consistent with exacerbation of your COPD. Please encourage hydration. Please take the antibiotics as prescribed. You are given your first dose here today, next dose will be due tomorrow. I would also like to have you on prednisone for the COPD exacerbation, again you are given a dose here today and the next dose due until tomorrow morning. You may use Tylenol and ibuprofen as needed for any of your sinus pain. Please continue to use your nebulizer if you have any increasing in your symptoms, this greatly helps your heart rate and oxygen here today. If you develop increased work of breathing, shortness of breath or other new/worsening symptoms please seek care urgently once again. Otherwise, I would like for you to follow-up with primary care at the end of the week for reevaluation. Referrals: Yazmin Yañez NP [Primary Care Provider] - Discharge Data Discharge Date/Time-TO BE ENTERED AT DEPARTURE: 04/01/22 11:32 Medical Decision Making Patient is a pleasant 71-year-old female with past medical history pertinent for CHF, COPD, hypertension, GERD, presenting today with chief complaint of bilateral ear pain, sinus discomfort and fever x1 week. She reports this began after she believes that she swallowed something in her sleep approximately quarter of an inch. She states that she awoke with a sensation of the posterior oropharynx, questioning if this may have come down from her sinuses. States that since then that she has had worsening symptoms. T-max of 100.4 ?F at home. Patient currently afebrile. Patient reports that she has chronic cough and shortness of breath which has not gotten any worse. Denies any purulent sputum. No chest pain. On exam, patient does not appear acutely ill but does appear consistent with her chronic comorbidities. She is hypertensive at 160/71, heart rate of 107, initial O2 86%. She brought up to 94% on 2 L nasal cannula. She denies feeling symptomatically any better with this. She reports that her oxygen typically is in the mid to high 80s. She does have a frontal sinus pain with percussion. Patient has diffuse wheezing on exam, no focal area of crackles. Normal cardiac exam. No lower extremity edema or calf tenderness. Concerned at this time for COPD exacerbation, possible pneumonia, sinusitis. Patient denies any chest pain. She feels that her shortness of breath and cough are at baseline. However, on chart review her oxygen seems much lower than her normal. However, patient states this is typical for her when she is doing O2 readings at home. She also reports that tachycardia is typical for her. Her rate is generally in the high 90s, low 100s. Patient is quite hesitant to have a large work-up and would prefer minimal approach. She has declined evaluation historically. She was agreeable to obtaining chest x-ray. I would also like to give her a nebulizer she has not used any of her nebulizers at home. Questioning if this may have helped open her up and improve her oxygen so that she is not dependent on the nasal cannula. With her comorbidities, I would also like to obtain a viral panel. With her other infectious symptoms do not have suspicion for pulmonary embolism. FINDINGS: Lungs: Patchy infiltrates in right upper to mid lung. Pleural spaces: No pneumothorax or sizable pleural effusion. Heart/Mediastinum: Normal cardiac silhouette. Aortic atherosclerosis. Bones/joints: Degenerative changes in visualized spine and shoulders. IMPRESSION: Patchy infiltrates in right upper to mid lung concerning for pneumonia. After patient's DuoNeb reports feeling much improved. She is no longer needing the oxygen and heart rate has improved into the 90s. She reports that typically she has these large fluctuations in heart rate as well as oxygen demand. Does follow this at home and states that this is her baseline. Patient would prefer to be discharged home. Her viral panel is negative. Plan to treat for pneumonia. She has been on Levaquin and has done well with this historically. We will repeat the same. We will also place the patient on prednisone for her COPD exacerbation. I encourage close follow-up with her primary care. I did advise that she use her nebulizer at home she has not been doing so. Return precautions were discussed. All of her questions and concerns were addressed and she is in agreement this plan. 04/02/22 1320: Called patient to check in and she reports that she is feeling significantly improved today. HPI General Date/Time Provider Initiated Documentation: 04/01/22 08:09 . Limitations to Documentation: no limitations . Information obtained by: patient, RN notes reviewed and old records reviewed . History of Present Illness 71 year old F presents to the emergency department with the chief complaint of bilateral ear pain, sinus discomfort, cough, described as moderate and similar to prior episodes, Quality is described as aching, and is localized to the face. Patient reports no radiation. Patient started experiencing this week(s) and it has been constant. No relieving factors improve symptom(s), No exacerbating factors reported . Patient notes cough, fever/chills, malaise and shortness of breath (reports chronic and unchanged from baseline, associatede with COPD); denies chest pain, headaches, nausea/vomiting, rash and weakness. Patient did receive the following treatments prior to arrival, none Related Data Home Medications Medication Instructions Recorded Confirmed albuterol sulfate 2.5 mg/3 mL 1 amp inhalation QID PRN #50 amps 05/27/18 04/01/22 (0.083 %) solution for nebulization acetaminophen 500 mg tablet 1,000 mg PO PRN PRN 10/23/19 04/01/22 amlodipine 5 mg tablet 5 mg PO BID dose increase #180 tabs 06/19/21 04/01/22 digoxin 125 mcg (0.125 mg) tablet 125 mcg PO QAM #90 tabs 06/19/21 04/01/22 esomeprazole magnesium 40 mg 40 mg PO DAILY #90 caps 06/19/21 04/01/22 capsule,delayed release fluticasone 250 mcg-salmeterol 50 1 inh inhalation BID #3 ea 06/19/21 04/01/22 mcg/dose blistr powdr for inhalation (Advair Diskus) furosemide 20 mg tablet See Rx Instructions PO .COMPLEX 06/19/21 04/01/22 #135 tab-caps ipratropium 20 mcg-albuterol 100 1 puff inhalation QID #12 grams 06/19/21 04/01/22 mcg/actuation mist for inhalation (Combivent Respimat) montelukast 10 mg tablet 10 mg PO DAILY #90 tab-caps 06/19/21 04/01/22 levofloxacin 500 mg tablet 500 mg PO DAILY #7 tabs 08/23/21 04/01/22 prednisone 20 mg tablet See Rx Instructions PO DAILY #14 08/23/21 04/01/22 tabs codeine 10 mg-guaifenesin 100 mg/5 See Rx Instructions PO Q6H PRN 08/28/21 04/01/22 mL oral liquid cough #120 mL levofloxacin 750 mg tablet 750 mg PO DAILY #5 tabs 04/01/22 prednisone 20 mg tablet 40 mg PO DAILY 4 days #8 tabs 04/01/22 Previous Rx's Medication Instructions Recorded albuterol sulfate 2.5 mg/3 mL 1 amp inhalation QID PRN #50 amps 05/27/18 (0.083 %) solution for nebulization amlodipine 5 mg tablet 5 mg PO BID dose increase #180 tabs 06/19/21 digoxin 125 mcg (0.125 mg) tablet 125 mcg PO QAM #90 tabs 06/19/21 esomeprazole magnesium 40 mg 40 mg PO DAILY #90 caps 06/19/21 capsule,delayed release fluticasone 250 mcg-salmeterol 50 1 inh inhalation BID #3 ea 06/19/21 mcg/dose blistr powdr for inhalation (Advair Diskus) furosemide 20 mg tablet See Rx Instructions PO .COMPLEX 06/19/21 #135 tab-caps ipratropium 20 mcg-albuterol 100 1 puff inhalation QID #12 grams 06/19/21 mcg/actuation mist for inhalation (Combivent Respimat) montelukast 10 mg tablet 10 mg PO DAILY #90 tab-caps 06/19/21 levofloxacin 500 mg tablet 500 mg PO DAILY #7 tabs 08/23/21 prednisone 20 mg tablet See Rx Instructions PO DAILY #14 08/23/21 tabs codeine 10 mg-guaifenesin 100 mg/5 See Rx Instructions PO Q6H PRN 08/28/21 mL oral liquid cough #120 mL levofloxacin 750 mg tablet 750 mg PO DAILY #5 tabs 04/01/22 prednisone 20 mg tablet 40 mg PO DAILY 4 days #8 tabs 04/01/22 Allergies Allergy/AdvReac Type Severity Reaction Status Date / Time diltiazem Allergy Intermediate LE and Verified 04/01/22 08:34 Facial Edema metoprolol Allergy Intermediate Fluid Verified 04/01/22 08:34 Retention hydrochlorothiazide Allergy Mild rash Verified 04/01/22 08:34 Sulfa (Sulfonamide Allergy Unknown Verified 04/01/22 08:34 Antibiotics) lisinopril AdvReac Mild did not Verified 04/01/22 08:34 feel well General Stated Complaint: GenMedical KAYCE: 3 Review of Systems Constitutional Constitutional: Reports as per HPI and Denies headache(s) Eyes Eyes: Reports as per HPI, Denies eye discharge and Denies irritation ENT Ears, Nose, Mouth, and Throat: Reports as per HPI and Denies headache(s) Cardiovascular Cardiovascular: Reports as per HPI and Denies chest pain Respiratory Respiratory: Reports as per HPI Gastrointestinal Gastrointestinal: Reports as per HPI, Denies abdominal pain, Denies change in bowel habits, Denies nausea and Denies vomiting Integumentary/Breasts Skin/Breast: Reports as per HPI and Denies rash Neurologic Neurologic: Reports as per HPI and Denies headache(s) PFSH All Active Problems (Updated 04/01/22 @ 11:09 by MARITA Benz) Pneumonia (Acute) COVID-19 (Acute) -associated with COPD exacerbation CHF (congestive heart failure) (Chronic) Cervical arthritis with myelopathy (Acute) Acute exacerbation of chronic obstructive pulmonary disease (COPD) (Acute) Arthritis (Acute 02/10/13) Chronic obstructive lung disease (Acute) h/o tobacco use, quit 2008 Osteoporosis (Acute 01/14/08) Tachycardia (Acute) HTN (hypertension) (Chronic) GERD (gastroesophageal reflux disease) (Chronic) Medical History (Updated 04/01/22 @ 11:09 by MARITA Benz) Acute on chronic diastolic CHF (congestive heart failure) Acute on chronic respiratory failure with hypoxia and hypercapnia CAP (community acquired pneumonia) GERD (gastroesophageal reflux disease) HTN (hypertension) Surgical History (Updated 08/28/21 @ 07:52 by Ruddy Crowder MD) Endoscopic Carpal Tunnel release (03/31/13) Left 7.2.13 Family History Mother Essential hypertension Hyperlipidemia Father Heart disease Neoplasm LUNG Lung cancer Sister No problems noted. Sister No problems noted. Brother No problems noted. Brother No problems noted. Maternal Grandfather Stroke Paternal Grandfather Heart disease Maternal Grandmother Heart disease Paternal Grandmother Stroke Son Diabetes Essential hypertension Daughter No problems noted. Social History Smoking/Tobacco Use Status: Former Tobacco Use tobacco type: cigarettes Quit Date: 02/02/00 Tobacco: How many years used: 50 Second Hand Exposure: Yes Smoking risk assessment performed?: Yes Alcohol Intake: never Drug use: Never Substance use type: does not use Counseling given: No Counseling provided: none Caregiver/Support person: No Household members: family Communication Needs: None Do you need help understanding health information?: Never Pets and animals: Yes Pets and animals: dog(s) Sexually active: No Do you think of yourself as: straight/heterosexual Current gender identity: female What is your relationship status?: How often do you talk on the phone with friends or family?: three or more times per week How often do you get together with friends or relatives?: three or more times per week Do you belong to any clubs or organized social groups?: no Panel score (0-1 are the most socially isolated patients): 1 What type of physical activity do you participate in: none Special juan needs: No Seatbelt use: sometimes Helmet use: No Drive intox or ride w/intox cdl b driver: No Do you feel safe at home: Yes Do you feel safe in your relationship?: Yes Exam Const General: cooperative, comfortable, no acute distress, well developed, well groomed and ill appearing chronically Nutritional Appearance: average body habitus and well nourished Orientation: alert and awake [facility] Head: normal to inspection, normocephalic and atraumatic Ears: hearing grossly normal bilaterally, external ears normal and TM's normal bilaterally General nose exam: external nose normal and nares normal Face and sinus: normal facial exam, sinuses tender, face symmetric and sinus tenderness frontal Mouth: oral mucosae normal, lip normal, tongue normal, oropharynx normal and moist mucous membranes Teeth and gingiva: dentition normal Throat: posterior oropharynx normal, tonsils normal and uvula midline Eyes General: appearance normal, both eyes and all related structures Neck Neck: normal visual inspection, full ROM, no lymphadenopathy and no meningeal signs Resp Effort & Inspection: normal respiratory effort, able to speak in complete sentences and no respiratory distress Auscultation: no rales, no rhonchi and wheezes (diffuse) expiratory wheezes Cardio Rate: tachycardic (107) Rhythm: regular rhythm Heart Sounds: S1 normal and S2 normal Skin General skin exam: no rashes or lesions noted Neuro General: patient alert and patient awake Cognition: normal cognition Speech: speech normal Gait: normal gait Extrem General: normal to inspection, no pedal edema, no calf tenderness and normal gait Psych Appearance: grossly normal and well kempt Mental Status: mental status grossly normal Speech and Movement: speech and movement normal Course Vital Signs Vital signs: Vital Signs Temperature 36.8 C 04/01/22 07:53 Pulse 107 H 04/01/22 07:53 Blood Pressure 160/71 H 04/01/22 07:53 Pulse Oximetry 86 L 04/01/22 07:53 Temperature 36.8 C 04/01/22 07:53 Temperature Source Temporal Artery Scan 04/01/22 07:53 Pulse 107 H 04/01/22 07:53 Blood Pressure 160/71 H 04/01/22 07:53 Blood Pressure Position Sitting 04/01/22 07:53 Pulse Oximetry 86 L 04/01/22 07:53 Oxygen Delivery Method Room Air 04/01/22 07:53 Oxygen Flow Rate 0 04/01/22 07:53
--- NOTE | 2022-04-01 09:27 | DI.RAD_ITS ---
Exam(s) XR PORTABLE CHEST AP EXAM: XR PORTABLE CHEST AP CLINICAL HISTORY: cough, fever. TECHNIQUE: 2D digital imaging was performed. COMPARISON: CR XR PORTABLE CHEST AP from 02/06/2019 FINDINGS: Single AP portable view. Heart size is upper normal. The mediastinum is not widened. Left lung is clear. However, there is now prominent interstitial and patchy infiltrate in the upper 2/3 of the right lung field, not evident on chest x-ray of January 2019. No associated pleural effusion. IMPRESSION: Prominent right lung infiltrate. No pleural effusions. DATA REPOSITORY: RADIATION DOSE DELIVERED: All CT scans at this facility use at least one of these dose optimization techniques: automated exposure control; mA and/or kV adjustment per patient size (includes targeted e xams where dose is matched to clinical indication); or iterative reconstruction.
[2022-04-01 09:49] VITALS: RESP 4
[2022-04-01] MEDS: Albuterol/Ipratropium 3 ML UPD VIAL UPD (09:49)
--- NOTE | 2022-04-01 09:50 | DI.VRAD_ITS ---
PROCEDURE INFORMATION: Exam: XR Chest Exam date and time: 04/01/2022 9:07 AM Age: 71 years old Clinical indication: Cough and fever TECHNIQUE: Imaging protocol: Radiologic exam of the chest. Views: 1 view. COMPARISON: CR XR PORTABLE CHEST AP 02/06/2019 8:39 AM FINDINGS: Lungs: Patchy infiltrates in right upper to mid lung. Pleural spaces: No pneumothorax or sizable pleural effusion. Heart/Mediastinum: Normal cardiac silhouette. Aortic atherosclerosis. Bones/joints: Degenerative changes in visualized spine and shoulders. IMPRESSION: Patchy infiltrates in right upper to mid lung concerning for pneumonia. Dictated and Authenticated by: Amanda Rodrigues MD. Ordering:YARA Gaviria MD
[2022-04-01 10:23] LABS: COVID-19 PCR Negative (Negative); Influenza A PCR Negative (Negative); Influenza B PCR Negative (Negative); RSV PCR Negative (Negative)
[2022-04-01] MEDS: predniSONE 20 MG TAB 40 MG PO (11:18)
[2022-04-01] MEDS: levoFLOXacin 500 MG, levoFLOXacin 250 MG 750 MG PO (11:18)
[2022-04-01 11:27] VITALS: RESP 22
== END 2022-04-01 11:32 | disposition home or self-care (01) ==
PROVIDERS: Emergency Provider Physician Assistant
DX: J44.1 Chronic obstructive pulmonary disease with (acute) exacerbation (principal); J44.0 Chronic obstructive pulmonary disease with (acute) lower respiratory infection; J18.9 Pneumonia, unspecified organism; I11.0 Hypertensive heart disease with heart failure; I50.33 Acute on chronic diastolic (congestive) heart failure; Z87.891 Personal history of nicotine dependence; Z20.822 Contact with and (suspected) exposure to COVID-19; R00.0 Tachycardia, unspecified; Z79.51 Long term (current) use of inhaled steroids; Z79.52 Long term (current) use of systemic steroids
CPT/HCPCS: 87637; 94640; 99283; 99284; 71045; J7512; J7620

== ENCOUNTER 2022-05-18 00:57 | Outpatient (CLI) | payer OTHER, SELFPAY ==
[2022-05-18 13:06] LABS: ALT 14 U/L (14-59); AST 23 U/L (15-37); Albumin 2.8 g/dL (3.4-5.0); Alkaline Phosphatase 104 U/L (46-116); Anion Gap 9.9 mmol/L (3-11); BUN 17 mg/dL (7-18); Bilirubin, Total 0.3 mg/dL (0.2-1.0); CO2 27.1 mmol/L (21.0-32.0); CREATININE 0.9 mg/dL (0.55-1.02); Chloride 101 mmol/L (98-107); Glucose 116 mg/dL (74-106); Potassium 4.6 mmol/L (3.5-5.1); Sodium 138 mmol/L (136-145); Total Protein 8.3 g/dL (6.4-8.2)
== END 2022-05-18 00:58 | disposition home or self-care (01) ==
LOC: LOS 00:59
DX: I10 Essential (primary) hypertension (principal); I50.9 Heart failure, unspecified; K21.9 Gastro-esophageal reflux disease without esophagitis
CPT/HCPCS: 36415; 80053

== ENCOUNTER 2022-05-25 17:12 | Inpatient (IN) | payer OTHER, SELFPAY ==
[2022-05-25] VITALS (52 sets, daily range): BP systolic 122–161; BP diastolic 55–92; PULSE 88–175; RESP 4–42; TEMP 37; O2SAT 88–97
--- NOTE | 2022-05-25 17:15 | RT.EKG_ITS ---
APPROVED REPORT Exam: Resting ECG Reason for Exam: shortness of breath Patient Location: E HR:154 bpm ECG Measurements Heart Rate 154 AXIS MA [id number] P [id number] QRSd 72 QRS 83 QT 284 T -17 QTc 457 Conclusion Atrial fibrillation with rapid V-rate...A-rate 0 Ventricular premature complex...V complex w/ short R-R interval Consider anteroseptal infarct...Q >30mS, dimin R, V1-V2 Repolarization abnormality, prob rate related...ST dep, T neg, tachycardia. Afib. PVCs. No STEMI. I have reviewed and interpreted ECG and agree with software generated interpretation.
--- NOTE | 2022-05-25 17:15 | DI.RAD_ITS ---
Exam(s) XR PORTABLE CHEST AP EXAM: XR PORTABLE CHEST AP CLINICAL HISTORY: shortness of breath. TECHNIQUE: 2D digital imaging was performed. COMPARISON: CR,XR XR PORTABLE CHEST AP from 04/01/2022 FINDINGS: Single AP portable view. Compared to 04/01/2022 Heart size is upper normal. The mediastinum is not widened. Left lung is clear. There is infiltrate extending from the right suprahilar region to the lateral ri ght pleural surface. There is no adjacent rib destruction evident. This is in the region of larger more diffuse infiltrate in the right upper lobe as seen on 04/01/22. No pleural effusions. IMPRESSION: Right upper lobe infiltrate with atelectasis and/or scarring. Close follow-up to resolution is recom mended. Cannot completely exclude neoplasm here. There are no pleural effusions. DATA REPOSITORY: RADIATION DOSE DELIVERED: All CT scans at this facility use at least one of these dose optimization techniques: automated exposure control; mA and/or kV adjustment per patient size (includes targeted e xams where dose is matched to clinical indication); or iterative reconstruction.
[2022-05-25] MEDS: Albuterol/Ipratropium 3 ML UPD VIAL UPD (17:26)
[2022-05-25] MEDS: methylPREDNISolone SUCC 125 MG VIAL 80 MG IVP (17:30)
[2022-05-25] MEDS: Lactated Ringers 1,000 ML 1000 ML IV (17:30)
[2022-05-25 17:43] LABS: Abs Immature Grans 0.23 10^3/uL (0.0-0.06); HCT 36.5 % (36.0-46.0); HGB 10.8 g/dL (11.2-15.7); MCH 25.7 pg (27.0-33.0); MCHC 29.6 % (32.0-36.0); MCV 87 fL (80-95); RDW-SD 50.8 fL; WBC 15.46 10^3/uL (4.4-10.8)
[2022-05-25 17:49] LABS: BE 3 mmol/L (-2-3); HCO3 29 mmol/L (22-26); pH 7.27 (7.35-7.45); pO2 87 mmHg (80-105); sO2 95 % (95-98); tCO2 28 mmol/L (23-27)
[2022-05-25 17:52] LABS: Site Right Radial; pCO2 65 mmHg (35-45)
--- NOTE | 2022-05-25 17:59 | NUR.NOTE ---
Nursing Note:Pt pulse bouncing between 133 and 160s. Pt refused metoprolol, education provided on her increased risk of stroke and she continued to state it will come down on its own. I do not want a medication that i know will fuck me up Metoprolol is on allergy list as giving her fluid retention. Education provided to her letting her know that we can always take the fluid off, but at this time the benefit out weighs the risk and she continued to refuse the medication. Provider notified.
[2022-05-25 18:15] LABS: Platelet Count 743 10^3/uL (130-400)
[2022-05-25 18:17] LABS: Absolute Lymphocyte Count 0.46 10^3/uL (1.2-3.4); Absolute Monocyte Count 0.46 10^3/uL (0.1-0.8); Absolute Neutrophil Count 14.22 10^3/uL (1.2-6.7); Atypical Lymphocytes % 1; Bands % 1; Diff Comment Manual Differential; Metamyelocytes % 2; RBC Morphology Normal
[2022-05-25 18:18] LABS: ALT 29 U/L (14-59); AST 42 U/L (15-37); Albumin 3.3 g/dL (3.4-5.0); Alkaline Phosphatase 142 U/L (46-116); Anion Gap 9.3 mmol/L (3-11); BUN 18 mg/dL (7-18); Bilirubin, Total 0.1 mg/dL (0.2-1.0); CO2 30.7 mmol/L (21.0-32.0); Calcium 9.4 mg/dL (8.5-10.1); Chloride 97 mmol/L (98-107); Digoxin 0.87 ng/mL (0.90-2.00); Glucose 165 mg/dL (74-106); NT-proBNP 1460 pg/mL (<300); Potassium 4.8 mmol/L (3.5-5.1); Sodium 137 mmol/L (136-145); Total Protein 8.6 g/dL (6.4-8.2); Troponin I < 50 ng/L (<or=60)
[2022-05-25] MEDS: Levalbuterol 1.25 MG/3 ML UPD VIAL UPD ×2 (18:19→19:07)
[2022-05-25 18:20] LABS: Magnesium 1.7 mg/dL (1.8-2.4)
[2022-05-25 18:55] LABS: Source Nasal/Nares
--- NOTE | 2022-05-25 18:58 | DI.VRAD_ITS ---
PROCEDURE INFORMATION: Exam: XR Chest Exam date and time: 05/25/2022 18:29 Age: 71 years old Clinical indication: Other: Shortness of breath TECHNIQUE: Imaging protocol: Radiologic exam of the chest. Views: 1 view. COMPARISON: XR PORTABLE CHEST AP 04/01/2022 09:07 FINDINGS: Lungs: Linear density in the right lung apex, morphology suggesting predominantly scarring and or subsegmental atelectasis at the site of the previous pneumonia. There are patchy surrounding interstitial densities. Aeration of the lungs overall greatly improved compared to prior. The lungs appear slightly hyperinflated. Pleural spaces: No pleural effusion. No pneumothorax. Heart/Mediastinum: No significant cardiomegaly for position and projection. Bones/joints: No acute fracture. IMPRESSION: Improved aeration of the lungs since prior. Favor predominantly resolved right upper lobe pneumonia with residual subsegmental atelectasis and or scarring. Consider follow-up to assess for complete resolution of disease in the right upper lobe. Dictated and Authenticated by: Tali Urena MD. Ordering:ALAINA Jasso MD
[2022-05-25] MEDS: Levalbuterol 1.25 MG/3 ML UPD VIAL (19:26)
[2022-05-25 19:46] LABS: COVID-19 PCR POSITIVE (Negative)
[2022-05-25 20:06] LABS: BE (Venous) 2 mmol/L (-2-3); HCO3 (Venous) 29 mmol/L (23-28); O2 Sat (Venous) 94 %; TCO2 (Venous) 28 mmol/L (24-29); pH (Venous) 7.24 (7.31-7.41); pO2 (Venous) 81 mmHg
[2022-05-25 20:09] LABS: pCO2 (Venous) 69 mmHg (41-51)
[2022-05-25 20:13] LABS: Lactate 1.2 mmol/L (0.6-1.4)
--- NOTE | 2022-05-25 21:02 | HPE_ITS ---
Date of service: 05/25/22 Time of Service: 21:03 Assessment and Plan Assessment and plan (1) Pneumonia due to COVID-19 virus: Start date: 05/25/22 Status: Acute Assessment and plan: This is a 71-year-old lady who presents with hypoxemia and respiratory distress as well as respiratory failure he is found to be COVID-19 positive. She has persistent right infiltrate no improvement from her previous hospitalization when she was treated with Levaquin. She will be started on Zosyn and Zithromax IV with respiratory support including treatment for acute COVID-19 pneumonia. She was given dexamethasone in the ED after 1 dose of Solu-Medrol. She will be continued on remdesivir for 3 days at least. Pharmacy to review whether Paxlovid is appropriate in the morning. (2) Acute exacerbation of chronic obstructive pulmonary disease (COPD): Start date: 05/25/22 Status: Acute Assessment and plan: BiPAP with follow-up VBG in the morning. Treatment of acute pneumonia with COVID-19 and COPD exacerbation. (3) Tachycardia: Status: Chronic Assessment and plan: Patient has history of atrial fibrillation not on anticoagulation and will be placed on Lovenox while in the hospital. She appears to have paroxysmal atrial tachycardia in the ED and this has resolved without specific treatment other than treating her respiratory process. She will be continued on digoxin with metoprolol held for now. She is on amlodipine for hypertension and this will be continued. Consider adding metoprolol if he has recurrent tachycardia with elevated blood pressure. (4) Hypomagnesemia: Start date: 05/25/22 Status: Acute Assessment and plan: Patient has slight hypomagnesia Astrid and the ED was given IV magnesium with follow-up in the morning. (5) HTN (hypertension): Status: Chronic Assessment and plan: Improved with heart rate control and respiratory treatments. Amlodipine with addition of metoprolol if not controlled. Qualifiers: Hypertension type: essential hypertension Qualified Code(s): I10 - Essential (primary) hypertension (6) CHF (congestive heart failure): Status: Chronic Assessment and plan: Continue morning Lasix as at home. Monitor for fluid overload. She appears to have mostly elevated PA pressures with normal left-ventricular ejection fraction by last echocardiogram in 2019. This can be updated if needed. Qualifiers: Heart failure type: unspecified Qualified Code(s): I50.9 - Heart failure, unspecified History of Present Illness Narrative: This is a 71-year-old lady who had pneumonia about 1 month ago which was treated with Levaquin and improved. She was bit at home with her son and grandson and has not smoked since she was 59 years old but has COPD with right-sided heart failure in the past and elevated PA pressures by last echocardiogram. She does have chronic peripheral edema and 2 days prior to admission began to have increasing risk for symptoms reported to the ED with hypoxemia and wheezing with respiratory distress. She was in acute respiratory failure which responded to repeated Xopenex treatments and O2 supplementation along with BiPAP. He does have an elevated PCO2 with respiratory acidosis. After a period of time he was found to have COVID-19 positive status being immunized with a booster dose recently. He was started on dexamethasone after 1 dose of Solu-Medrol in the ED and remdesivir along with continued IV Zosyn and IV Zithromax for treatment of right infiltrates with persisting so improving by chest x-ray. At this time warren is more comfortable speaking comfortably and lying in bed with his head almost flat. She had a Castillo catheter in place and BiPAP continued. He stated he was constipated but has no other abdominal complaints. Her edema neuro.- Slightly worse treatment with chronic edema. He denies any significant weight gain. She has been sick since Saturday which was 2 days prior to presentation. Review of Systems Narrative: 13 point review of systems otherwise unrevealing or stable. PFSH All Active Problems (Updated 05/25/22 @ 23:25 by Allan Law) Pneumonia due to COVID-19 virus (Acute) CHF (congestive heart failure) (Chronic) Cervical arthritis with myelopathy (Acute) Hypomagnesemia (Acute) Acute exacerbation of chronic obstructive pulmonary disease (COPD) (Acute) Arthritis (Acute 02/10/13) Chronic obstructive lung disease (Acute) h/o tobacco use, quit 2008 Osteoporosis (Acute 01/14/08) Tachycardia (Chronic) HTN (hypertension) (Chronic) GERD (gastroesophageal reflux disease) (Chronic) Medical History (Updated 05/25/22 @ 23:25 by Allan Law) Acute on chronic diastolic CHF (congestive heart failure) Acute on chronic respiratory failure with hypoxia and hypercapnia CAP (community acquired pneumonia) COVID-19 -associated with COPD exacerbation GERD (gastroesophageal reflux disease) HTN (hypertension) Parotid mass Resolved after 3 months without intervention Tobacco dependence due to cigarettes Quit smoking when she was 59 years old Surgical History Endoscopic Carpal Tunnel release (03/31/13) Left 7.2.13 Family History Mother Essential hypertension Hyperlipidemia Father Heart disease Neoplasm LUNG Lung cancer Sister No problems noted. Sister No problems noted. Brother No problems noted. Brother No problems noted. Maternal Grandfather Stroke Paternal Grandfather Heart disease Maternal Grandmother Heart disease Paternal Grandmother Stroke Son Diabetes Essential hypertension Daughter No problems noted. Social History Smoking/Tobacco Use Status: Former Tobacco Use tobacco type: cigarettes Quit Date: 02/02/00 Tobacco: How many years used: 50 Second Hand Exposure: Yes Smoking risk assessment performed?: Yes Alcohol Intake: never Drug use: Never Substance use type: does not use Counseling given: No Counseling provided: none Caregiver/Support person: No Household members: family Communication Needs: None Do you need help understanding health information?: Never Pets and animals: Yes Pets and animals: dog(s) Sexually active: No Do you think of yourself as: straight/heterosexual Current gender identity: female What is your relationship status?: How often do you talk on the phone with friends or family?: three or more times per week How often do you get together with friends or relatives?: three or more times per week Do you belong to any clubs or organized social groups?: no Panel score (0-1 are the most socially isolated patients): 1 What type of physical activity do you participate in: none Special juan needs: No Seatbelt use: sometimes Helmet use: No Drive intox or ride w/intox driver/merchandiser: No Do you feel safe at home: Yes Do you feel safe in your relationship?: Yes Meds Allergies and Home Medications Allergies Allergy/AdvReac Type Severity Reaction Status Date / Time diltiazem Allergy Intermediate LE and Verified 05/23/22 10:17 Facial Edema hydrochlorothiazide Allergy Mild rash Verified 05/23/22 10:17 Sulfa (Sulfonamide Allergy Unknown Verified 05/23/22 10:17 Antibiotics) metoprolol AdvReac Intermediate Fluid Verified 05/25/22 17:29 Retention lisinopril AdvReac Mild did not Verified 05/23/22 10:17 feel well Home Medications Medication Instructions Recorded Confirmed Type albuterol sulfate 2.5 mg/3 mL 1 amp inhalation QID PRN #50 amps 05/27/18 05/23/22 Rx (0.083 %) solution for nebulization acetaminophen 500 mg tablet 1,000 mg PO PRN PRN 10/23/19 05/23/22 History amlodipine 5 mg tablet 5 mg PO BID dose increase #180 tabs 06/19/21 05/23/22 Rx digoxin 125 mcg (0.125 mg) tablet 125 mcg PO QAM #90 tabs 06/19/21 05/23/22 Rx esomeprazole magnesium 40 mg 40 mg PO DAILY #90 caps 06/19/21 05/23/22 Rx capsule,delayed release fluticasone 250 mcg-salmeterol 50 1 inh inhalation BID #3 ea 06/19/21 05/23/22 Rx mcg/dose blistr powdr for inhalation (Advair Diskus) furosemide 20 mg tablet See Rx Instructions PO .COMPLEX 06/19/21 05/23/22 Rx #135 tab-caps ipratropium 20 mcg-albuterol 100 1 puff inhalation QID #12 grams 06/19/21 05/23/22 Rx mcg/actuation mist for inhalation (Combivent Respimat) montelukast 10 mg tablet 10 mg PO DAILY #90 tab-caps 06/19/21 05/23/22 Rx codeine 10 mg-guaifenesin 100 mg/5 See Rx Instructions PO Q6H PRN 08/28/21 05/23/22 Rx mL oral liquid cough #120 mL amoxicillin 500 mg capsule 1,000 mg PO TID #42 caps 05/23/22 05/23/22 Rx benzonatate 100 mg capsule 100 - 200 mg PO TID PRN cough #60 05/23/22 05/23/22 Rx caps ciprofloxacin HCl 750 mg tablet 750 mg PO BID #14 tabs 05/23/22 05/23/22 Rx ipratropium 0.5 mg-albuterol 3 mg 3 ml inhalation Q6H PRN wheezing 05/23/22 05/23/22 Rx (2.5 mg base)/3 mL nebulization #180 mL soln prednisone 20 mg tablet 60 mg PO DAILY #23 tabs 05/23/22 05/23/22 Rx Exam Narrative Exam Narrative: General: Patient appears warm for age, lying in bed almost flat with BiPAP in place. He is alert and oriented to person place. She is in no acute distress. HEENT: Normocephalic, BiPAP mask in place, eyes with pupils equal and reactive light symmetrically, extraocular movement intact and sclera anicteric. Orophary nx with dry mucosa. Neck: Supple without JVD. Lungs: Bronchovesicular breath sounds diffusely with no focalizing rales or rhonchi but decreased aeration of the right hemithorax. Heart: Tachycardic rate with regular rhythm patient having higher heart rate earlier now in the low 100s. 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 Breast: Exam deferred. Abdomen: Slightly protuberant, soft nontender to palpation without palpable hepatosplenomegaly. Bowel sounds positive all quadrants. Genitalia/rectal: Exam deferred. Castillo catheter intact. Extremities: 2+ nonpitting edema in lower extremities with fair capillary refill, chronic skin changes with loss of hair but no ulcerations or hyperpigmentation. No atrophic skin. Joints have fair range of motion. Skin: Pale, warm and dry. Neuro: Cranial nerves II through XII grossly intact, no focal motor deficits. Psych: Normal affect and mood. No abnormal thought processes. Remote and recent memory intact. Results Imaging Imaging Studies: Exam: XR Chest Exam date and time: 05/25/2022 18:29 Age: 71 years old Clinical indication: Other: Shortness of breath TECHNIQUE: Imaging protocol: Radiologic exam of the chest. Views: 1 view. COMPARISON: XR PORTABLE CHEST AP 04/01/2022 09:07 FINDINGS: Lungs: Linear density in the right lung apex, morphology suggesting predominantly scarring and or subsegmental atelectasis at the site of the previous pneumonia. There are patchy surrounding interstitial densities. Aeration of the lungs overall greatly improved compared to prior. The lungs appear slightly hyperinflated. Pleural spaces: No pleural effusion. No pneumothorax. Heart/Mediastinum: No significant cardiomegaly for position and projection. Bones/joints: No acute fracture.? IMPRESSION: Improved aeration of the lungs since prior. Favor predominantly resolved right upper lobe pneumonia with residual subsegmental atelectasis and or scarring. Consider follow-up to assess for complete resolution of disease in the right upper lobe. Date of study: 01/13/2019 ? Transthoracic Echocardiography M-mode, complete 2D, complete spectral Doppler, and color Doppler *STUDY CONCLUSIONS* Summary: 1. Left ventricle: The cavity size was normal. Wall thickness was ?? normal. Systolic function was hyperdynamic. The estimated ejection ?? fraction was 65-70%. There was no dynamic obstruction. Wall motion ?? was normal; there were no regional wall motion abnormalities. ?? Findings consistent with diastolic dysfunction. Doppler parameters ?? are consistent with high ventricular filling pressure. 2. Left atrium: The atrium was mildly dilated. 3. Right ventricle: The cavity size was normal. Wall thickness was ?? normal. Systolic function was hyperdynamic. 4. Pulmonary arteries: Pulmonary systolic pressure was increased, in the ?? range of 40mm Hg to 50mm Hg. Labs Result diagrams: 05/25/22 17:35 05/25/22 17:35 Labs: Laboratory Results - last 24 hr 05/25/22 05/25/22 05/25/22 17:35 17:35 17:35 WBC 15.46 H RBC 4.20 Hgb 10.8 L Hct 36.5 MCV 87 MCH 25.7 L MCHC 29.6 L RDW 16.0 H Plt Count 743 H MPV 9.0 Immature Gran % See Differential Neutrophils % 91.0 Band Neutrophils % 1 Lymphocytes % 2.0 Atypical Lymphs % 1 Monocytes % 3.0 Eosinophils % 0.0 Basophils % 0.0 Metamyelocytes % 2 Other Cells % Nucleated RBC % 0.0 Absolute Neutrophils 14.22 H Absolute Lymphocytes 0.46 L Absolute Monocytes 0.46 Absolute Eosinophils 0.00 Absolute Basophils 0.00 RBC Morphology Normal ABG Sample Site ABG pH ABG pCO2 ABG pO2 ABG HCO3 ABG Total CO2 ABG O2 Saturation ABG Base Excess VBG pH VBG pCO2 VBG pO2 VBG HCO3 VBG Total CO2 VBG O2 Saturation VBG Base Excess VBG Lactate Oxygen Liter Flow Sodium 137 Potassium 4.8 Chloride 97 L Carbon Dioxide 30.7 Anion Gap 9.3 BUN 18 Creatinine 1.0 Estimated GFR/1.73 m2 54.50 Glucose 165 H Calcium 9.4 Magnesium 1.7 L Total Bilirubin 0.1 L AST 42 H ALT 29 Alkaline Phosphatase 142 H Troponin I < 50 NT-Pro-B Natriuret Pep 1460 H Total Protein 8.6 H Albumin 3.3 L Digoxin COVID-19 Source SARS-CoV-2 (PCR) 05/25/22 05/25/22 05/25/22 17:35 17:35 17:46 WBC RBC Hgb Hct MCV MCH MCHC RDW Plt Count MPV Immature Gran % Neutrophils % Band Neutrophils % Lymphocytes % Atypical Lymphs % Monocytes % Eosinophils % Basophils % Metamyelocytes % Other Cells % Nucleated RBC % Absolute Neutrophils Absolute Lymphocytes Absolute Monocytes Absolute Eosinophils Absolute Basophils RBC Morphology ABG Sample Site Right Radial ABG pH 7.27 L ABG pCO2 65 H* ABG pO2 87 ABG HCO3 29 H ABG Total CO2 28 H ABG O2 Saturation 95 ABG Base Excess 3 VBG pH VBG pCO2 VBG pO2 VBG HCO3 VBG Total CO2 VBG O2 Saturation VBG Base Excess VBG Lactate 2.0 H Oxygen Liter Flow BFPAP Sodium Potassium Chloride Carbon Dioxide Anion Gap BUN Creatinine Estimated GFR/1.73 m2 Glucose Calcium Magnesium Total Bilirubin AST ALT Alkaline Phosphatase Troponin I NT-Pro-B Natriuret Pep Total Protein Albumin Digoxin 0.87 L COVID-19 Source SARS-CoV-2 (PCR) 05/25/22 05/25/22 05/25/22 18:50 20:00 20:00 WBC RBC Hgb Hct MCV MCH MCHC RDW Plt Count MPV Immature Gran % Neutrophils % Band Neutrophils % Lymphocytes % Atypical Lymphs % Monocytes % Eosinophils % Basophils % Metamyelocytes % Other Cells % Nucleated RBC % Absolute Neutrophils Absolute Lymphocytes Absolute Monocytes Absolute Eosinophils Absolute Basophils RBC Morphology ABG Sample Site ABG pH ABG pCO2 ABG pO2 ABG HCO3 ABG Total CO2 ABG O2 Saturation ABG Base Excess VBG pH 7.24 L VBG pCO2 69 H* VBG pO2 81 VBG HCO3 29 H VBG Total CO2 28 VBG O2 Saturation 94 VBG Base Excess 2 VBG Lactate 1.2 Oxygen Liter Flow Sodium Potassium Chloride Carbon Dioxide Anion Gap BUN Creatinine Estimated GFR/1.73 m2 Glucose Calcium Magnesium Total Bilirubin AST ALT Alkaline Phosphatase Troponin I NT-Pro-B Natriuret Pep Total Protein Albumin Digoxin COVID-19 Source Nasal/Nares SARS-CoV-2 (PCR) POSITIVE A* 05/25/22 20:25 WBC RBC Hgb Hct MCV MCH MCHC RDW Plt Count MPV Immature Gran % Neutrophils % Band Neutrophils % Lymphocytes % Atypical Lymphs % Monocytes % Eosinophils % Basophils % Metamyelocytes % Other Cells % Nucleated RBC % Absolute Neutrophils Absolute Lymphocytes Absolute Monocytes Absolute Eosinophils Absolute Basophils RBC Morphology ABG Sample Site ABG pH ABG pCO2 ABG pO2 ABG HCO3 ABG Total CO2 ABG O2 Saturation ABG Base Excess VBG pH VBG pCO2 VBG pO2 VBG HCO3 VBG Total CO2 VBG O2 Saturation VBG Base Excess VBG Lactate Oxygen Liter Flow Sodium Potassium Chloride Carbon Dioxide Anion Gap BUN Creatinine Estimated GFR/1.73 m2 Glucose Calcium Magnesium Total Bilirubin AST ALT Alkaline Phosphatase Troponin I Cancelled NT-Pro-B Natriuret Pep Total Protein Albumin Digoxin COVID-19 Source SARS-CoV-2 (PCR) Last Vital Signs Pulse 105 H 05/25/22 19:45 Resp 37 H 05/25/22 19:50 BP 154/62 H 05/25/22 19:45 Pulse Ox 97 05/25/22 19:50
[2022-05-25] MEDS: MAGNESIUM SULFATE 1 GM/100 ML BAG IVPB (21:15)
--- NOTE | 2022-05-25 21:22 | NUR.NOTE ---
[facility] cell [phone] Vin[facility] Cell [phone] Nursing Note:
[2022-05-25] MEDS: AZITHROMYCIN 500 MG in Normal Saline 250 ML 250 MG IVPB (21:56)
[2022-05-25] MEDS: Normal Saline Flush 10 ML SYR IVP (21:57)
[2022-05-25] MEDS: Dexamethasone 10 MG/ML VIAL IVP (21:57)
[2022-05-25] MEDS: PIPERACILLIN/TAZO 3.375 GM in Normal Saline 50 ML IVPB (21:57)
[2022-05-25] MEDS: REMDESIVIR 200 MG in Normal Saline 250 ML 250 MG IVPB (23:30)
--- NOTE | 2022-05-25 23:57 | ED.GENADUL_ITS ---
Discharge Plan Disposition Patient Disposition: [facility] INPATIENT Condition: Critical Discharge Details Clinical Impression: Tachycardia, Acute exacerbation of chronic obstructive pulmonary disease (COPD), Hypomagnesemia, Pneumonia due to COVID-19 virus, Respiratory failure Admit Date/Time: 05/25/22 19:31 Admit Provider: Allan Law Attending Provider: Allan Law Primary Care Provider: Yazmin Yañez ED Provider: Louisa Terrell Discharge Data Discharge Date/Time-TO BE ENTERED AT DEPARTURE: 05/25/22 20:07 Medical Decision Making Patient in significant respiratory distress Respiratory called immediately, DuoNeb initiated, placed on BiPAP, 09/05, tolerating this well Diagnostic labs ordered, leukocytosis, right upper lobe infiltrate, prior large infiltrate in this area on prior x-ray, although increased opacity at this time ABG with evidence of hypercarbic hypoxemic respiratory failure COVID test positive Given recent outpatient antibiotics, Zosyn and azithromycin were initiated IV Patient received 80 mg of Solu-Medrol Secondary to tachycardia which initially they attributed to atrial fibrillation, cardiology was consulted as patient is unable to take metoprolol or diltiazem per her adverse effects and refuses medications, cardiology at [facility], Dr. DIANE actually thinks this is a multifocal atrial tachycardia and recommends continuing patient's digoxin and does not feel additional intervention is necess jose roberto at this time Therefore IV fluid resuscitation will be continued likely BNP is elevated, there is no overt evidence of right-sided heart failure and there is no prior documented history of left-sided involvement, her echocardiogram in 2019 shows an ejection fraction of 65 to 70% which I think is reassuring The patient was discontinued from the DuoNeb secondary to tachycardia and transition to Xopenex which actually seems to be working quite well, she is received for nebs in the emergency department and her lung sounds are becoming more clear and she is exhibiting wheezing We had a discussion regarding her CODE STATUS and she does wish to be intubated should she need that intervention She is alert and oriented and able to speak in several word sentences at this time, there is no indication for emergent intubation Her ABG is mildly concerning, this will need to be followed, repeat VBG shows bicarb of 69 and pH of 7.2, however the initial test was an ABG and so less concerned with this VBG finding, she will need repeat, clinically she appears markedly improved, her breathing rate has improved and she is appearing more comfortable in the room She is stable for admission at this time She will need intensive care level Case was discussed with Dr. Law who is agreeable to admitting the patient [facility] General Date/Time Provider Initiated Documentation: 05/25/22 17:20 . HPI Narrative: This 71-year-old female with history of COPD, CVA, CHF, hypertension, and GERD presents with report of I cannot breathe . She states that she was diagnosed with pneumonia approximately 2 months ago and completed a course of antibiotics and felt improvement. She states in the past week her symptoms have worsened. She denies known sick contacts. She has been using her inhalers as prescribed. She does smoke tobacco. She states that despite using her inhalers today she felt she could not take an inhalation or exhalation. She denies any associated pain. She denies any calf pain or swelling. She states that her symptoms are consistent with her prior episodes of COPD exacerbations. She states that she has not been intubated but has needed BiPAP numerous times in the past. She does indicate that she tolerates this well. She denies any myalgias. She denies fever. She has cough consistent with her prior COPD exacerbations probation. Related Data Home Medications Medication Instructions Recorded Confirmed albuterol sulfate 2.5 mg/3 mL 1 amp inhalation QID PRN #50 amps 05/27/18 05/23/22 (0.083 %) solution for nebulization acetaminophen 500 mg tablet 1,000 mg PO PRN PRN 10/23/19 05/23/22 amlodipine 5 mg tablet 5 mg PO BID dose increase #180 tabs 06/19/21 05/23/22 digoxin 125 mcg (0.125 mg) tablet 125 mcg PO QAM #90 tabs 06/19/21 05/23/22 esomeprazole magnesium 40 mg 40 mg PO DAILY #90 caps 06/19/21 05/23/22 capsule,delayed release fluticasone 250 mcg-salmeterol 50 1 inh inhalation BID #3 ea 06/19/21 05/23/22 mcg/dose blistr powdr for inhalation (Advair Diskus) furosemide 20 mg tablet See Rx Instructions PO .COMPLEX 06/19/21 05/23/22 #135 tab-caps ipratropium 20 mcg-albuterol 100 1 puff inhalation QID #12 grams 06/19/21 05/23/22 mcg/actuation mist for inhalation (Combivent Respimat) montelukast 10 mg tablet 10 mg PO DAILY #90 tab-caps 06/19/21 05/23/22 codeine 10 mg-guaifenesin 100 mg/5 See Rx Instructions PO Q6H PRN 08/28/21 0 05/23/22 mL oral liquid cough #120 mL amoxicillin 500 mg capsule 1,000 mg PO TID #42 caps 05/23/22 05/23/22 benzonatate 100 mg capsule 100 - 200 mg PO TID PRN cough #60 05/23/22 05/23/22 caps ciprofloxacin HCl 750 mg tablet 750 mg PO BID #14 tabs 05/23/22 05/23/22 ipratropium 0.5 mg-albuterol 3 mg 3 ml inhalation Q6H PRN wheezing 05/23/22 05/23/22 (2.5 mg base)/3 mL nebulization #180 mL soln prednisone 20 mg tablet 60 mg PO DAILY #23 tabs 05/23/22 05/23/22 Previous Rx's Medication Instructions Recorded albuterol sulfate 2.5 mg/3 mL 1 amp inhalation QID PRN #50 amps 05/27/18 (0.083 %) solution for nebulization amlodipine 5 mg tablet 5 mg PO BID dose increase #180 tabs 06/19/21 digoxin 125 mcg (0.125 mg) tablet 125 mcg PO QAM #90 tabs 06/19/21 esomeprazole magnesium 40 mg 40 mg PO DAILY #90 caps 06/19/21 capsule,delayed release fluticasone 250 mcg-salmeterol 50 1 inh inhalation BID #3 ea 06/19/21 mcg/dose blistr powdr for inhalation (Advair Diskus) furosemide 20 mg tablet See Rx Instructions PO .COMPLEX 06/19/21 #135 tab-caps ipratropium 20 mcg-albuterol 100 1 puff inhalation QID #12 grams 06/19/21 mcg/actuation mist for inhalation (Combivent Respimat) montelukast 10 mg tablet 10 mg PO DAILY #90 tab-caps 06/19/21 codeine 10 mg-guaifenesin 100 mg/5 See Rx Instructions PO Q6H PRN 08/28/21 mL oral liquid cough #120 mL amoxicillin 500 mg capsule 1,000 mg PO TID #42 caps 05/23/22 benzonatate 100 mg capsule 100 - 200 mg PO TID PRN cough #60 05/23/22 caps ciprofloxacin HCl 750 mg tablet 750 mg PO BID #14 tabs 05/23/22 ipratropium 0.5 mg-albuterol 3 mg 3 ml inhalation Q6H PRN wheezing 05/23/22 (2.5 mg base)/3 mL nebulization #180 mL soln prednisone 20 mg tablet 60 mg PO DAILY #23 tabs 05/23/22 Allergies Allergy/AdvReac Type Severity Reaction Status Date / Time diltiazem Allergy Intermediate LE and Verified 05/23/22 10:17 Facial Edema hydrochlorothiazide Allergy Mild rash Verified 05/23/22 10:17 Sulfa (Sulfonamide Allergy Unknown Verified 05/23/22 10:17 Antibiotics) metoprolol AdvReac Intermediate Fluid Verified 05/25/22 17:29 Retention lisinopril AdvReac Mild did not Verified 05/23/22 10:17 feel well General Stated Complaint: RespSymp KAYCE: 2 Review of Systems All systems reviewed & are unremarkable except as noted in HPI and below PFSH All Active Problems (Updated 05/26/22 @ 08:51 by MARITA Mckay) Respiratory failure (Acute) Pneumonia due to COVID-19 virus (Acute) CHF (congestive heart failure) (Chronic) Cervical arthritis with myelopathy (Acute) Hypomagnesemia (Acute) Acute exacerbation of chronic obstructive pulmonary disease (COPD) (Acute) Arthritis (Acute 02/10/13) Chronic obstructive lung disease (Acute) h/o tobacco use, quit 2008 Osteoporosis (Acute 01/14/08) Tachycardia (Chronic) HTN (hypertension) (Chronic) GERD (gastroesophageal reflux disease) (Chronic) Medical History (Updated 05/26/22 @ 08:51 by MARITA Mckay) Acute on chronic diastolic CHF (congestive heart failure) Acute on chronic respiratory failure with hypoxia and hypercapnia CAP (community acquired pneumonia) COVID-19 -associated with COPD exacerbation GERD (gastroesophageal reflux disease) HTN (hypertension) Parotid mass Resolved after 3 months without intervention Tobacco dependence due to cigarettes Quit smoking when she was 59 years old Surgical History Endoscopic Carpal Tunnel release (03/31/13) Left 7.2.13 Family History Mother Essential hypertension Hyperlipidemia Father Heart disease Neoplasm LUNG Lung cancer Sister No problems noted. Sister No problems noted. Brother No problems noted. Brother No problems noted. Maternal Grandfather Stroke Paternal Grandfather Heart disease Maternal Grandmother Heart disease Paternal Grandmother Stroke Son Diabetes Essential hypertension Daughter No problems noted. Social History Smoking/Tobacco Use Status: Former Tobacco Use tobacco type: cigarettes Quit Date: 02/02/00 Tobacco: How many years used: 50 Second Hand Exposure: Yes Smoking risk assessment performed?: Yes Alcohol Intake: never Drug use: Never Substance use type: does not use Counseling given: No Counseling provided: none Caregiver/Support person: No Household members: family Communication Needs: None Do you need help understanding health information?: Never Pets and animals: Yes Pets and animals: dog(s) Sexually active: No Do you think of yourself as: straight/heterosexual Current gender identity: female What is your relationship status?: How often do you talk on the phone with friends or family?: three or more times per week How often do you get together with friends or relatives?: three or more times per week Do you belong to any clubs or organized social groups?: no Panel score (0-1 are the most socially isolated patients): 1 What type of physical activity do you participate in: none Special juan needs: No Seatbelt use: sometimes Helmet use: No Drive intox or ride w/intox local driver: No Do you feel safe at home: Yes Do you feel safe in your relationship?: Yes Exam Const General: ill appearing Nutritional Appearance: average body habitus Orientation: alert and oriented x3 Eyes Pupils: PERRL Neck Other: No stridor Resp Effort & Inspection: audible wheezes, cough, labored, pursed lip breathing, respiratory distress, retractions, tachypneic, tripod positioning and uses accessory muscles Auscultation: diminished lung sounds and wheezes Cardio Rate: tachycardic Rhythm: abnormal rhythm GI Inspection: normal to inspection Neuro General: patient alert and patient oriented x3 Extrem General: normal to inspection Other: Nontender calves, vascularly intact Course Vital Signs Vital signs: Vital Signs Pulse 150 H 05/25/22 17:15 Respiratory Rate 18 05/25/22 17:15 Blood Pressure 150/74 H 05/25/22 17:15 Pulse Oximetry 94 05/25/22 17:15 Temperature 37.0 C 05/25/22 20:20 Temperature Source Temporal Artery Scan 05/25/22 20:20 Pulse 105 H 05/25/22 19:45 Pulse 152 H 05/25/22 19:50 Respiratory Rate 37 H 05/25/22 19:50 Respiratory Effort Labored 05/25/22 20:20 Respiratory Depth Shallow 05/25/22 17:42 Blood Pressure 154/62 H 05/25/22 19:45 Blood Pressure Mean 84 05/25/22 19:45 Blood Pressure Position Sitting 05/25/22 20:20 Pulse Oximetry 97 05/25/22 19:50 Oxygen Delivery Method Non-Rebreather 05/25/22 20:20 Oxygen Flow Rate 10 05/25/22 20:20 Fraction of Inspired Oxygen (FIO2) 35 05/25/22 19:07 Pain Level 0 05/25/22 20:20 Lab/Test Results Lab/Test Results: Laboratory Tests Range/Units 05/25/22 05/25/22 05/25/22 17:24 17:35 17:35 WBC (4.4-10.8) 10^3/uL 15.46 H RBC (3.93-5.22) 10^6/uL 4.20 Hgb (11.2-15.7) g/dL 10.8 L Hct (36.0-46.0) % 36.5 MCV (80-95) fL 87 MCH (27.0-33.0) pg 25.7 L MCHC (32.0-36.0) % 29.6 L RDW (11.7-14.6) % 16.0 H Plt Count (130-400) 10^3/uL 743 H MPV (8.0-11.0) fL 9.0 Immature Gran % See Differential Neutrophils % 91.0 Band Neutrophils % 1 Lymphocytes % 2.0 Atypical Lymphs % 1 Monocytes % 3.0 Eosinophils % 0.0 Basophils % 0.0 Metamyelocytes % 2 Other Cells % Nucleated RBC % (0.0-0.3) % 0.0 Absolute Neutrophils (1.2-6.7) 10^3/uL 14.22 H Absolute Lymphocytes (1.2-3.4) 10^3/uL 0.46 L Absolute Monocytes (0.1-0.8) 10^3/uL 0.46 Absolute Eosinophils (0.0-0.7) 10^3/uL 0.00 Absolute Basophils (0.0-0.2) 10^3/uL 0.00 RBC Morphology Normal ABG Sample Site Cancelled ABG pH Cancelled ABG pCO2 Cancelled ABG pO2 Cancelled ABG HCO3 Cancelled ABG Total CO2 Cancelled ABG O2 Saturation Cancelled ABG Base Excess Cancelled VBG Lactate (0.6-1.4) mmol/L Oxygen Liter Flow Cancelled FiO2 Cancelled Sodium (136-145) mmol/L 137 Potassium (3.5-5.1) mmol/L 4.8 Chloride (98-107) mmol/L 97 L Carbon Dioxide (21.0-32.0) mmol/L 30.7 Anion Gap (3-11) mmol/L 9.3 BUN (7-18) mg/dL 18 Creatinine (0.55-1.02) mg/dL 1.0 Estimated GFR/1.73 m2 (mL/min/1.73m2) 54.50 Glucose (74-106) mg/dL 165 H Calcium (8.5-10.1) mg/dL 9.4 Magnesium (1.8-2.4) mg/dL Total Bilirubin (0.2-1.0) mg/dL 0.1 L AST (15-37) U/L 42 H ALT (14-59) U/L 29 Alkaline Phosphatase (46-116) U/L 142 H Troponin I (<or=60) ng/L < 50 NT-Pro-B Natriuret Pep (<300) pg/mL 1460 H Total Protein (6.4-8.2) g/dL 8.6 H Albumin (3.4-5.0) g/dL 3.3 L Digoxin (0.90-2.00) ng/mL COVID-19 Source SARS-CoV-2 (PCR) (Negative) Range/Units 05/25/22 05/25/22 05/25/22 17:35 17:35 17:35 WBC (4.4-10.8) 10^3/uL RBC (3.93-5.22) 10^6/uL Hgb (11.2-15.7) g/dL Hct (36.0-46.0) % MCV (80-95) fL MCH (27.0-33.0) pg MCHC (32.0-36.0) % RDW (11.7-14.6) % Plt Count (130-400) 10^3/uL MPV (8.0-11.0) fL Immature Gran % Neutrophils % Band Neutrophils % Lymphocytes % Atypical Lymphs % Monocytes % Eosinophils % Basophils % Metamyelocytes % Other Cells % Nucleated RBC % (0.0-0.3) % Absolute Neutrophils (1.2-6.7) 10^3/uL Absolute Lymphocytes (1.2-3.4) 10^3/uL Absolute Monocytes (0.1-0.8) 10^3/uL Absolute Eosinophils (0.0-0.7) 10^3/uL Absolute Basophils (0.0-0.2) 10^3/uL RBC Morphology ABG Sample Site ABG pH ABG pCO2 ABG pO2 ABG HCO3 ABG Total CO2 ABG O2 Saturation ABG Base Excess VBG Lactate (0.6-1.4) mmol/L 2.0 H Oxygen Liter Flow FiO2 Sodium (136-145) mmol/L Potassium (3.5-5.1) mmol/L Chloride (98-107) mmol/L Carbon Dioxide (21.0-32.0) mmol/L Anion Gap (3-11) mmol/L BUN (7-18) mg/dL Creatinine (0.55-1.02) mg/dL Estimated GFR/1.73 m2 (mL/min/1.73m2) Glucose (74-106) mg/dL Calcium (8.5-10.1) mg/dL Magnesium (1.8-2.4) mg/dL 1.7 L Total Bilirubin (0.2-1.0) mg/dL AST (15-37) U/L ALT (14-59) U/L Alkaline Phosphatase (46-116) U/L Troponin I (<or=60) ng/L NT-Pro-B Natriuret Pep (<300) pg/mL Total Protein (6.4-8.2) g/dL Albumin (3.4-5.0) g/dL Digoxin (0.90-2.00) ng/mL 0.87 L COVID-19 Source SARS-CoV-2 (PCR) (Negative) Range/Units 05/25/22 05/25/22 17:46 18:50 WBC (4.4-10.8) 10^3/uL RBC (3.93-5.22) 10^6/uL Hgb (11.2-15.7) g/dL Hct (36.0-46.0) % MCV (80-95) fL MCH (27.0-33.0) pg MCHC (32.0-36.0) % RDW (11.7-14.6) % Plt Count (130-400) 10^3/uL MPV (8.0-11.0) fL Immature Gran % Neutrophils % Band Neutrophils % Lymphocytes % Atypical Lymphs % Monocytes % Eosinophils % Basophils % Metamyelocytes % Other Cells % Nucleated RBC % (0.0-0.3) % Absolute Neutrophils (1.2-6.7) 10^3/uL Absolute Lymphocytes (1.2-3.4) 10^3/uL Absolute Monocytes (0.1-0.8) 10^3/uL Absolute Eosinophils (0.0-0.7) 10^3/uL Absolute Basophils (0.0-0.2) 10^3/uL RBC Morphology ABG Sample Site Right Radial ABG pH 7.27 L ABG pCO2 65 H* ABG pO2 87 ABG HCO3 29 H ABG Total CO2 28 H ABG O2 Saturation 95 ABG Base Excess 3 VBG Lactate (0.6-1.4) mmol/L Oxygen Liter Flow BFPAP FiO2 Sodium (136-145) mmol/L Potassium (3.5-5.1) mmol/L Chloride (98-107) mmol/L Carbon Dioxide (21.0-32.0) mmol/L Anion Gap (3-11) mmol/L BUN (7-18) mg/dL Creatinine (0.55-1.02) mg/dL Estimated GFR/1.73 m2 (mL/min/1.73m2) Glucose (74-106) mg/dL Calcium (8.5-10.1) mg/dL Magnesium (1.8-2.4) mg/dL Total Bilirubin (0.2-1.0) mg/dL AST (15-37) U/L ALT (14-59) U/L Alkaline Phosphatase (46-116) U/L Troponin I (<or=60) ng/L NT-Pro-B Natriuret Pep (<300) pg/mL Total Protein (6.4-8.2) g/dL Albumin (3.4-5.0) g/dL Digoxin (0.90-2.00) ng/mL COVID-19 Source Nasal/Nares SARS-CoV-2 (PCR) (Negative) POSITIVE A* Critical Care Time Critical Care Time Attestation: 60 minutes: bipap initiation, telemetry monitoring, diagnostic lab interpretation, diagnostic imaging interpretation, admission to icu
[2022-05-26] VITALS (82 sets, daily range): BP systolic 108–158; BP diastolic 47–107; PULSE 88–129; RESP 12–45; TEMP 36.4–37; O2SAT 85–100
[2022-05-26] MEDS: PIPERACILLIN/TAZO 3.375 GM in Normal Saline 50 ML IVPB ×2 (04:35→10:04)
[2022-05-26 06:02] LABS: Abs Immature Grans 0.46 10^3/uL (0.0-0.06); HCT 30.9 % (36.0-46.0); MCH 25.7 pg (27.0-33.0); MCHC 29.1 % (32.0-36.0); MCV 88 fL (80-95); MPV 9.1 fL (8.0-11.0); Platelet Count 531 10^3/uL (130-400); RDW 16.2 % (11.7-14.6); RDW-SD 52.4 fL; WBC 12.73 10^3/uL (4.4-10.8)
[2022-05-26 06:04] LABS: BE (Venous) 3 mmol/L (-2-3); HCO3 (Venous) 30 mmol/L (23-28); O2 Sat (Venous) 99 %; TCO2 (Venous) 29 mmol/L (24-29); pH (Venous) 7.28 (7.31-7.41); pO2 (Venous) 129 mmHg
[2022-05-26 06:08] LABS: pCO2 (Venous) 65 mmHg (41-51)
[2022-05-26 06:23] LABS: ALT 39 U/L (14-59); AST 50 U/L (15-37); Absolute Lymphocyte Count 0.64 10^3/uL (1.2-3.4); Absolute Monocyte Count 0.38 10^3/uL (0.1-0.8); Absolute Neutrophil Count 11.58 10^3/uL (1.2-6.7); Albumin 2.5 g/dL (3.4-5.0); Alkaline Phosphatase 117 U/L (46-116); Anion Gap 3.5 mmol/L (3-11); BUN 16 mg/dL (7-18); Bilirubin, Total 0.1 mg/dL (0.2-1.0); CO2 33.5 mmol/L (21.0-32.0); CREATININE 0.9 mg/dL (0.55-1.02); Calcium 8.5 mg/dL (8.5-10.1); Chloride 102 mmol/L (98-107); Diff Comment Manual Differential; Glucose 147 mg/dL (74-106); Magnesium 1.9 mg/dL (1.8-2.4); Metamyelocytes % 1; Potassium 4.5 mmol/L (3.5-5.1); RBC Morphology Normal; Sodium 139 mmol/L (136-145); Total Protein 7.3 g/dL (6.4-8.2)
--- NOTE | 2022-05-26 07:38 | NUR.NOTE ---
RN sends SNPP message to respiratory care specialist to place high flow system in room so patient can enjoy her breakfast.Nursing Note:
[2022-05-26] MEDS: amLODIPine 10 MG TAB PO (08:07)
[2022-05-26] MEDS: Digoxin 0.125 MG TAB PO (08:07)
[2022-05-26] MEDS: Dexamethasone 10 MG/ML VIAL IVP (08:07)
[2022-05-26] MEDS: Esomeprazole 40 MG CAPCR PO (08:08)
[2022-05-26] MEDS: Enoxaparin 40 MG/0.4 ML SYR SC (08:08)
[2022-05-26] MEDS: Furosemide 20 MG TAB PO (08:09)
[2022-05-26] MEDS: Normal Saline Flush 10 ML SYR IVP ×2 (08:17→11:05)
[2022-05-26] MEDS: Insulin Aspart 300 UNITS/3 ML PEN SC (09:02)
--- NOTE | 2022-05-26 09:17 | PDOC.CMIN ---
- If Service Date Differs Date of service: 05/26/22 Time of Service: 09:17 Care Management Initial Assess REASON FOR HOSPITALIZATION:: COPD exacerbation, COVID pneumonia PAST MEDICAL HISTORY/PAST SURGICAL HISTORY:: All Active Problems. Pneumonia due to COVID-19 virus (Acute). CHF (congestive heart failure) (Chronic). Cervical arthritis with myelopathy (Acute). Hypomagnesemia (Acute). Acute exacerbation of chronic obstructive pulmonary disease (COPD) (Acute). Arthritis (Acute 02/10/13). Chronic obstructive lung disease (Acute). h/o tobacco use, quit 2008. Osteoporosis (Acute 01/14/08). Tachycardia (Chronic). HTN (hypertension) (Chronic). GERD (gastroesophageal reflux disease) (Chronic). Medical History. Acute on chronic diastolic CHF (congestive heart failure). Acute on chronic respiratory failure with hypoxia and hypercapnia. CAP (community acquired pneumonia). COVID-19. -associated with COPD exacerbation. GERD (gastroesophageal reflux disease). HTN (hypertension). Parotid mass. Resolved after 3 months without intervention. Tobacco dependence due to cigarettes. Quit smoking when she was 59 years old. Surgical History. Endoscopic Carpal Tunnel release (03/31/13). Left 7.2.13 PREVIOUS FUNCTIONAL STATUS/SOCIAL/FAMILY SUPPORTS:: Jackie lives in her own home with her son and grandson. She has a daughter who lives in [place] and has 2 additional grandchildren and 2 great grandchildren. 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 She is completely independent with ADLs, driving, shopping and maintaining her own firewood. CURRENT FUNCTIONAL STATUS:: Jackie in being closely monitored at ICU status, under Covid precautions, therefore CM did not meet with her today. Per report, she is feeling better. She is afebrile, and denies diarrhea, nausea or vomiting. She is being treated with remdesivir. She was transitioned from NC O2 to BiPAP due to elevated CO2. CM will continue to follow. ADVANCE DIRECTIVES:: JAREK on file, Vinh Ivy listed as agent. Has patient been provided with info about the portal/API?: Yes Did the patient sign up for the portal?: No CODE STATUS:: Full Code CODE STATUS COMMENT:: JAREK states pt is DNR/DNI. Will present to MD for consideration. INSURANCE COVERAGE / FINANCIAL ISSUES:: [employer] (MCR replacement) CURRENT HOME/COMMUNITY SERVICES/EQUIPMENT:: No current services or equipment. PRIMARY CARE PHYSICIAN:: Yazmin Yañez POTENTIAL DISCHARGE NEEDS:: Evaluation for further needs, follow up appointments. PATIENT/FAMILY EDUCATION NEEDS:: Review discharge instructions and limitations, discussion of self care needs including ask me three. ANTICIPATED BARRIERS TO DISCHARGE:: None identified. TRANSPORTATION:: Via private vehicle by family. PLAN:: Anticipate Jackie will return home once medically cleared. She will transport home via private vehicle by family. She will follow up with her PCP and discharge plan of care. CM will continue to follow.
--- NOTE | 2022-05-26 11:06 | NUR.NOTE ---
RN applies COLETTE. aware of same and assesses bilateral lower extremity edema in patient's room.Nursing Note:
--- NOTE | 2022-05-26 11:11 | NUR.NOTE ---
RN sends coding technician SNPP message asking for her advice on BIPAP during the day or at night, or both. Patient presently on BIPAP at 10/5 and FI02 OF 40%. Patient struggled a bit when transfering from bed to commode on 6 liters via nasal cannula earlier, which is why RN placed patient back on BIPAP.Nursing Note:
--- NOTE | 2022-05-26 11:22 | NUR.NOTE ---
Respiratory therapist would like patient to remain on BIPAP but for meals. Respiratory therapist changes BIPAP settings to 12/5 to provide patient with a bit more pressure. FI02 is now 35%.Nursing Note:
[2022-05-26 11:26] LABS: Lab Add On Test DONE
--- NOTE | 2022-05-26 11:44 | PHA.REVIEW ---
Pharmacy Admission Review - Admission Clinical Review (Last Updated 05/25/22 @ 23:24 by Allan Law) Respiratory failure (Acute) Pneumonia due to COVID-19 virus (Acute) Hypomagnesemia (Acute) Acute exacerbation of chronic obstructive pulmonary disease (COPD) (Acute) diltiazem Allergy (Intermediate, Verified 05/23/22 10:17) LE and Facial Edema hydrochlorothiazide Allergy (Mild, Verified 05/23/22 10:17) rash Sulfa (Sulfonamide Antibiotics) Allergy (Unknown, Verified 05/23/22 10:17) metoprolol Adverse Reaction (Intermediate, Verified 05/25/22 17:29) Fluid Retention lisinopril Adverse Reaction (Mild, Verified 05/23/22 10:17) did not feel well Resuscitation Status Full Code Height 5 ft 4 in Weight 69.5 kg COPD Exacerbation, Bacterial and COVID Pneumonia - Comments Comments/Follow Ups: Follow diuresis, BNP, weights, BP/HR, Antibiotic coverage, Procal pending. On IV steroids so expect elevated WBC and Blood sugars, insulin adjustments if needed. Treating bacterial and COVID Pneumonia with Azithromycin IV, Zosyn, Remdesivir - Renal Dosing Renal Dosing: BUN 16 mg/dL (7-18) 05/26/22 05:48 Creatinine 0.9 mg/dL (0.55-1.02) 05/26/22 05:48 Medications needing adjustments: Reviewed (CrCl~48ml/min (Watch Zosyn dosing)) - Anticoagulation Anticoagulation: Hgb 9.0 g/dL (11.2-15.7) L 05/26/22 05:48 Hct 30.9 % (36.0-46.0) L 05/26/22 05:48 Plt Count 531 10^3/uL (130-400) H 05/26/22 05:48 Creatinine 0.9 mg/dL (0.55-1.02) 05/26/22 05:48 DVT Prophylaxis: Reviewed Medications: Enoxaparin - Relevant Labs Sodium 139 mmol/L (136-145) 05/26/22 05:48 Potassium 4.5 mmol/L (3.5-5.1) 05/26/22 05:48 Chloride 102 mmol/L (98-107) 05/26/22 05:48 Magnesium 1.9 mg/dL (1.8-2.4) 05/26/22 05:48 Electrolytes, C-Reactive P, ESR: Reviewed - DM Control DM Control: Glucose 147 mg/dL (74-106) H 05/26/22 05:48 Finger Stick Blood Glucose 146 Finger Stick Blood Glucose 146 Finger Stick Blood Glucose 146 Insulin Dosing: Reviewed (Novolog sensitive scale) - Heart Failure/ND Heart Failure/ND: Troponin I Cancelled 05/25/22 20:25 NT-Pro-B Natriuret Pep 1460 pg/mL (<300) H 05/25/22 17:35 EF%, DOE's, B-Blockers, Diuretics: Reviewed (oral Furosemide alternating 20mg/40mg every other day, Amlodipine, Digoxin, per ER note, patient cannot tolerate Diltiazem or Metoprolol for Afib, not anticoagulated) - BP Control BP Control: Blood Pressure [Left Arm] 143/66 Blood Pressure 158/70 Blood Pressure 143/66 Blood Pressure 141/71 Blood Pressure 108/55 Blood Pressure 134/62 Blood Pressure 108/53 Blood Pressure 131/60 If elevated: Reviewed (HR>100's at times) - Qtc Review If Elevated: Reviewed (QTC 457) - IV to PO Switch IV Medications: Reviewed (IV Decadron, Antibiotics) - Home Meds Home Med List reviewed: Reviewed (reconciled home meds from pharmacy external history) - Current meds Current Medication Order Review: Intervened (formulary substitute Symbicort for Advair 250/50)
[2022-05-26] MEDS: Ipratropium/Albuterol 4 GM 120 PUFF INH IH ×3 (12:15→20:00)
[2022-05-26] MEDS: Budesonide/Formoterol 160/4.5 6 GM 60 PUFF INH IH ×2 (12:16→20:00)
[2022-05-26 12:41] LABS: Procalcitonin < 0.1 ng/mL
--- NOTE | 2022-05-26 12:43 | NUR.NOTE ---
BIPAP removed. Patient started on 6 liters of 02 via nasal cannula. Patient sating 92%.Nursing Note:
--- NOTE | 2022-05-26 12:48 | NUR.NOTE ---
Patient is set up with her lunch tray and is feeding herself.Nursing Note:
--- NOTE | 2022-05-26 13:21 | W.PM.PROGNOT ---
Date of Service Date of service: 05/26/22 Time of Service: 13:21 Assessment and Plan Assessment and plan (1) Pneumonia due to COVID-19 virus: Start date: 05/25/22 Status: Acute Assessment and plan: This is a 71-year-old lady who presents with hypoxemia and respiratory distress as well as respiratory failure he is found to be COVID-19 positive. She has persistent right infiltrate no improvement from her previous hospitalization when she was treated with Levaquin. She was initiated on Zosyn and Zithromax; Procal negative so Zosyn stopped. Cont dexamethasone in the ED after 1 dose of Solu-Medrol. She will be continued on remdesivir for 3 days at least. (2) Acute exacerbation of chronic obstructive pulmonary disease (COPD): Start date: 05/25/22 Status: Acute Assessment and plan: VBG today: pH 7.28. pCO2 65. pO2 129. On NC initially this AM then back to BiPAP d/t elevated pCO2. Cont home atrovent and prn xopenex. On Dexamethasone. (3) Tachycardia: Status: Chronic Assessment and plan: Patient has history of atrial fibrillation not on anticoagulation and will be placed on Lovenox while in the hospital. She appears to have paroxysmal atrial tachycardia in the ED and this has resolved without specific treatment other than treating her respiratory process. Continued on digoxin Continue amlodipine. (4) Hypomagnesemia: Start date: 05/25/22 Status: Acute Assessment and plan: Mg replaced via IV in the ED. Mg now normal at 1.9. (5) HTN (hypertension): Status: Chronic Assessment and plan: Improved with heart rate control and respiratory treatments. Cont amlodipine. Qualifiers: Hypertension type: essential hypertension Qualified Code(s): I10 - Essential (primary) hypertension (6) CHF (congestive heart failure): Status: Chronic Assessment and plan: Continue morning Lasix as at home. Monitor for fluid overload. She appears to have mostly elevated PA pressures with normal left-ventricular ejection fraction by last echocardiogram in 2019. This can be updated if needed. Qualifiers: Heart failure type: unspecified Qualified Code(s): I50.9 - Heart failure, unspecified Subjective Subjective Patient reports: no new complaints, feels better and afebrile; denies diarrhea, nausea or vomiting Exam Narrative Exam Narrative: Lying in bed. Now with BiPAP in place. Const General: cooperative and no acute distress Nutritional Appearance: average body habitus Orientation: alert Neck Neck: full ROM and no JVD Resp Effort & Inspection: normal respiratory effort Auscultation: rhonchi GI Palpation: soft and nontender Auscultation: normal bowel sounds Skin General skin exam: no rashes or lesions noted Neuro General: patient alert, patient awake and no focal motor deficits Cranial Nerves: facial strength normal Cognition: normal cognition Speech: speech normal Extrem General: no calf tenderness, edema and other (TEDS in place) Objective Last Vital Signs Temp 36.9 C 05/26/22 12:44 Pulse 119 H 05/26/22 12:44 Resp 24 05/26/22 12:44 BP 140/62 05/26/22 12:44 Pulse Ox 92 05/26/22 12:44 Laboratory Results - last 24 hr 05/25/22 05/25/22 05/25/22 17:24 17:35 17:35 WBC 15.46 H RBC 4.20 Hgb 10.8 L Hct 36.5 MCV 87 MCH 25.7 L MCHC 29.6 L RDW 16.0 H Plt Count 743 H MPV 9.0 Immature Gran % See Differential Neutrophils % 91.0 Band Neutrophils % 1 Lymphocytes % 2.0 Atypical Lymphs % 1 Monocytes % 3.0 Eosinophils % 0.0 Basophils % 0.0 Metamyelocytes % 2 Other Cells % Nucleated RBC % 0.0 Absolute Neutrophils 14.22 H Absolute Lymphocytes 0.46 L Absolute Monocytes 0.46 Absolute Eosinophils 0.00 Absolute Basophils 0.00 RBC Morphology Normal ABG Sample Site Cancelled ABG pH Cancelled ABG pCO2 Cancelled ABG pO2 Cancelled ABG HCO3 Cancelled ABG Total CO2 Cancelled ABG O2 Saturation Cancelled ABG Base Excess Cancelled VBG pH VBG pCO2 VBG pO2 VBG HCO3 VBG Total CO2 VBG O2 Saturation VBG Base Excess VBG Lactate Oxygen Liter Flow Cancelled FiO2 Cancelled Sodium 137 Potassium 4.8 Chloride 97 L Carbon Dioxide 30.7 Anion Gap 9.3 BUN 18 Creatinine 1.0 Estimated GFR/1.73 m2 54.50 Glucose 165 H Calcium 9.4 Magnesium Total Bilirubin 0.1 L AST 42 H ALT 29 Alkaline Phosphatase 142 H Troponin I < 50 NT-Pro-B Natriuret Pep 1460 H Total Protein 8.6 H Albumin 3.3 L Procalcitonin Digoxin COVID-19 Source SARS-CoV-2 (PCR) Add-On Test Request 05/25/22 05/25/22 05/25/22 17:35 17:35 17:35 WBC RBC Hgb Hct MCV MCH MCHC RDW Plt Count MPV Immature Gran % Neutrophils % Band Neutrophils % Lymphocytes % Atypical Lymphs % Monocytes % Eosinophils % Basophils % Metamyelocytes % Other Cells % Nucleated RBC % Absolute Neutrophils Absolute Lymphocytes Absolute Monocytes Absolute Eosinophils Absolute Basophils RBC Morphology ABG Sample Site ABG pH ABG pCO2 ABG pO2 ABG HCO3 ABG Total CO2 ABG O2 Saturation ABG Base Excess VBG pH VBG pCO2 VBG pO2 VBG HCO3 VBG Total CO2 VBG O2 Saturation VBG Base Excess VBG Lactate 2.0 H Oxygen Liter Flow FiO2 Sodium Potassium Chloride Carbon Dioxide Anion Gap BUN Creatinine Estimated GFR/1.73 m2 Glucose Calcium Magnesium 1.7 L Total Bilirubin AST ALT Alkaline Phosphatase Troponin I NT-Pro-B Natriuret Pep Total Protein Albumin Procalcitonin Digoxin 0.87 L COVID-19 Source SARS-CoV-2 (PCR) Add-On Test Request 05/25/22 05/25/22 05/25/22 17:46 18:50 20:00 WBC RBC Hgb Hct MCV MCH MCHC RDW Plt Count MPV Immature Gran % Neutrophils % Band Neutrophils % Lymphocytes % Atypical Lymphs % Monocytes % Eosinophils % Basophils % Metamyelocytes % Other Cells % Nucleated RBC % Absolute Neutrophils Absolute Lymphocytes Absolute Monocytes Absolute Eosinophils Absolute Basophils RBC Morphology ABG Sample Site Right Radial ABG pH 7.27 L ABG pCO2 65 H* ABG pO2 87 ABG HCO3 29 H ABG Total CO2 28 H ABG O2 Saturation 95 ABG Base Excess 3 VBG pH 7.24 L VBG pCO2 69 H* VBG pO2 81 VBG HCO3 29 H VBG Total CO2 28 VBG O2 Saturation 94 VBG Base Excess 2 VBG Lactate Oxygen Liter Flow BFPAP FiO2 Sodium Potassium Chloride Carbon Dioxide Anion Gap BUN Creatinine Estimated GFR/1.73 m2 Glucose Calcium Magnesium Total Bilirubin AST ALT Alkaline Phosphatase Troponin I NT-Pro-B Natriuret Pep Total Protein Albumin Procalcitonin Digoxin COVID-19 Source Nasal/Nares SARS-CoV-2 (PCR) POSITIVE A* Add-On Test Request 08/26/22 08/26/22 08/27/22 20:00 20:25 05:48 WBC RBC Hgb Hct MCV MCH MCHC RDW Plt Count MPV Immature Gran % Neutrophils % Band Neutrophils % Lymphocytes % Atypical Lymphs % Monocytes % Eosinophils % Basophils % Metamyelocytes % Other Cells % Nucleated RBC % Absolute Neutrophils Absolute Lymphocytes Absolute Monocytes Absolute Eosinophils Absolute Basophils RBC Morphology ABG Sample Site ABG pH ABG pCO2 ABG pO2 ABG HCO3 ABG Total CO2 ABG O2 Saturation ABG Base Excess VBG pH VBG pCO2 VBG pO2 VBG HCO3 VBG Total CO2 VBG O2 Saturation VBG Base Excess VBG Lactate 1.2 Oxygen Liter Flow FiO2 Sodium 139 Potassium 4.5 Chloride 102 Carbon Dioxide 33.5 H Anion Gap 3.5 BUN 16 Creatinine 0.9 Estimated GFR/1.73 m2 >= 60.00 Glucose 147 H Calcium 8.5 Magnesium 1.9 Total Bilirubin 0.1 L AST 50 H ALT 39 Alkaline Phosphatase 117 H Troponin I Cancelled NT-Pro-B Natriuret Pep Total Protein 7.3 Albumin 2.5 L Procalcitonin Digoxin COVID-19 Source SARS-CoV-2 (PCR) Add-On Test Request 05/26/22 05/26/22 05/26/22 05:48 05:48 05:48 WBC 12.73 H RBC 3.50 L Hgb 9.0 L Hct 30.9 L MCV 88 MCH 25.7 L MCHC 29.1 L RDW 16.2 H Plt Count 531 H MPV 9.1 Immature Gran % 0.0 Neutrophils % 91.0 Band Neutrophils % Lymphocytes % 5.0 Atypical Lymphs % Monocytes % 3.0 Eosinophils % 0.0 Basophils % 0.0 Metamyelocytes % 1 Other Cells % Nucleated RBC % 0.0 Absolute Neutrophils 11.58 H Absolute Lymphocytes 0.64 L Absolute Monocytes 0.38 Absolute Eosinophils 0.00 Absolute Basophils 0.00 RBC Morphology Normal ABG Sample Site ABG pH ABG pCO2 ABG pO2 ABG HCO3 ABG Total CO2 ABG O2 Saturation ABG Base Excess VBG pH 7.28 L VBG pCO2 65 H* VBG pO2 129 VBG HCO3 30 H VBG Total CO2 29 VBG O2 Saturation 99 VBG Base Excess 3 VBG Lactate Oxygen Liter Flow FiO2 Sodium Potassium Chloride Carbon Dioxide Anion Gap BUN Creatinine Estimated GFR/1.73 m2 Glucose Calcium Magnesium Total Bilirubin AST ALT Alkaline Phosphatase Troponin I NT-Pro-B Natriuret Pep Total Protein Albumin Procalcitonin Digoxin COVID-19 Source SARS-CoV-2 (PCR) Add-On Test Request DONE 05/26/22 05:48 WBC RBC Hgb Hct MCV MCH MCHC RDW Plt Count MPV Immature Gran % Neutrophils % Band Neutrophils % Lymphocytes % Atypical Lymphs % Monocytes % Eosinophils % Basophils % Metamyelocytes % Other Cells % Nucleated RBC % Absolute Neutrophils Absolute Lymphocytes Absolute Monocytes Absolute Eosinophils Absolute Basophils RBC Morphology ABG Sample Site ABG pH ABG pCO2 ABG pO2 ABG HCO3 ABG Total CO2 ABG O2 Saturation ABG Base Excess VBG pH VBG pCO2 VBG pO2 VBG HCO3 VBG Total CO2 VBG O2 Saturation VBG Base Excess VBG Lactate Oxygen Liter Flow FiO2 Sodium Potassium Chloride Carbon Dioxide Anion Gap BUN Creatinine Estimated GFR/1.73 m2 Glucose Calcium Magnesium Total Bilirubin AST ALT Alkaline Phosphatase Troponin I NT-Pro-B Natriuret Pep Total Protein Albumin Procalcitonin < 0.1 Digoxin COVID-19 Source SARS-CoV-2 (PCR) Add-On Test Request
--- NOTE | 2022-05-26 15:00 | NUR.NOTE ---
Patient placed back on BIPAP 07/06 at 35% FI02. RN places a nose piece on patient to protect the bridge of her nose from the BIPAP mask. Patient is comfortable with mask.
[2022-05-26] MEDS: Normal Saline 500 ML IV (21:20)
[2022-05-26] MEDS: REMDESIVIR 100 MG in Normal Saline 250 ML 250 MG IVPB (21:21)
[2022-05-26] MEDS: AZITHROMYCIN 500 MG in Normal Saline 250 ML 250 MG IVPB (22:37)
[2022-05-27] VITALS (31 sets, daily range): BP systolic 125–155; BP diastolic 48–85; PULSE 84–142; RESP 4–36; TEMP 36.2–36.6; O2SAT 79–97
[2022-05-27 06:27] LABS: HGB 10.5 g/dL (11.2-15.7); MCH 26.3 pg (27.0-33.0); MCV 88 fL (80-95); MPV 9.2 fL (8.0-11.0); Platelet Count 618 10^3/uL (130-400); RBC 3.99 10^6/uL (3.93-5.22); RDW 15.9 % (11.7-14.6); RDW-SD 51.6 fL; WBC 15.45 10^3/uL (4.4-10.8)
[2022-05-27 06:48] LABS: ALT 60 U/L (14-59); AST 47 U/L (15-37); Albumin 2.7 g/dL (3.4-5.0); Alkaline Phosphatase 126 U/L (46-116); BUN 17 mg/dL (7-18); Bilirubin, Total 0.1 mg/dL (0.2-1.0); CREATININE 0.7 mg/dL (0.55-1.02); Calcium 8.7 mg/dL (8.5-10.1); Chloride 98 mmol/L (98-107); Glucose 106 mg/dL (74-106); Potassium 4.4 mmol/L (3.5-5.1); Sodium 138 mmol/L (136-145); Total Protein 7.8 g/dL (6.4-8.2)
[2022-05-27 07:02] LABS: Absolute Lymphocyte Count 1.55 10^3/uL (1.2-3.4); Absolute Monocyte Count 0.46 10^3/uL (0.1-0.8); Absolute Neutrophil Count 13.29 10^3/uL (1.2-6.7); Bands % 2
[2022-05-27 07:03] LABS: Diff Comment Manual Differential; Metamyelocytes % 1; RBC Morphology Normal
[2022-05-27] MEDS: Ipratropium/Albuterol 4 GM 120 PUFF INH IH ×4 (08:21→19:24)
[2022-05-27] MEDS: Budesonide/Formoterol 160/4.5 6 GM 60 PUFF INH IH ×2 (08:21→19:24)
[2022-05-27] MEDS: Esomeprazole 40 MG CAPCR PO (09:11)
[2022-05-27] MEDS: Dexamethasone 10 MG/ML VIAL IVP (09:11)
[2022-05-27] MEDS: Furosemide 40 MG TAB PO (09:11)
[2022-05-27] MEDS: Digoxin 0.125 MG TAB PO (09:11)
[2022-05-27] MEDS: amLODIPine 10 MG TAB PO (09:11)
[2022-05-27] MEDS: Enoxaparin 40 MG/0.4 ML SYR SC (09:11)
[2022-05-27] MEDS: Normal Saline Flush 10 ML SYR IVP ×2 (09:12→22:42)
--- NOTE | 2022-05-27 10:51 | W.PM.PROGNOT ---
Date of Service Date of service: 05/27/22 Time of Service: 10:55 Assessment and Plan Assessment and plan (1) Pneumonia due to COVID-19 virus: Start date: 05/25/22 Status: Acute Assessment and plan: Presented with hypoxemia, respiratory distress as well as respiratory failure he is found to be COVID-19 positive. Persistent right infiltrate no improvement from her previous hospitalization when she was treated with Levaquin. She was initiated on Zosyn and Zithromax; Procal negative so Zosyn stopped. Cont dexamethasone in the ED after 1 dose of Solu-Medrol. She will be continued on remdesivir for 3 days at least. (2) Acute exacerbation of chronic obstructive pulmonary disease (COPD): Start date: 05/25/22 Status: Acute Assessment and plan: High flow nasal cannula. Cont home atrovent and prn xopenex. On Dexamethasone. (3) Tachycardia: Status: Chronic Assessment and plan: Patient has history of atrial fibrillation not on anticoagulation and will be placed on Lovenox while in the hospital. She appears to have paroxysmal atrial tachycardia in the ED and this has resolved without specific treatment other than treating her respiratory process. Continued on digoxin Continue amlodipine. (4) Hypomagnesemia: Start date: 05/25/22 Status: Acute Assessment and plan: Mg replaced via IV in the ED. Mg now normal at 1.9. (5) HTN (hypertension): Status: Chronic Assessment and plan: Improved with heart rate control and respiratory treatments. Cont amlodipine. Qualifiers: Hypertension type: essential hypertension Qualified Code(s): I10 - Essential (primary) hypertension (6) CHF (congestive heart failure): Status: Chronic Assessment and plan: Continue morning Lasix as at home. Monitor for fluid overload. She appears to have mostly elevated PA pressures with normal left-ventricular ejection fraction by last echocardiogram in 2019. This can be updated if needed. Qualifiers: Heart failure type: unspecified Qualified Code(s): I50.9 - Heart failure, unspecified Subjective Subjective Patient reports: no new complaints, shortness of breath (with activity) and afebrile; denies tolerating a regular diet, nausea or vomiting Exam Narrative Exam Narrative: Sitting in chair. High flow nasal cannula in place Const General: cooperative and no acute distress Nutritional Appearance: average body habitus Orientation: alert Neck Neck: full ROM and no JVD Resp Effort & Inspection: normal respiratory effort and able to speak in complete sentences Auscultation: diminished lung sounds and rhonchi GI Palpation: soft and nontender Auscultation: normal bowel sounds Skin General skin exam: no rashes or lesions noted Neuro General: patient alert, patient awake and no focal motor deficits Cranial Nerves: facial strength normal Cognition: normal cognition Speech: speech normal Extrem General: no calf tenderness, edema and other (TEDS in place) Objective Last Vital Signs Temp 36.3 C L 05/27/22 08:00 Pulse 106 H 05/27/22 09:42 Resp 35 H 05/27/22 09:42 BP 125/57 L 05/27/22 09:42 Pulse Ox 94 05/27/22 09:42 Laboratory Results - last 24 hr 05/26/22 05/26/22 05/27/22 05:48 05:48 05:36 WBC RBC Hgb Hct MCV MCH MCHC RDW Plt Count MPV Immature Gran % Neutrophils % Band Neutrophils % Lymphocytes % Monocytes % Eosinophils % Basophils % Metamyelocytes % Nucleated RBC % Absolute Neutrophils Absolute Lymphocytes Absolute Monocytes Absolute Eosinophils Absolute Basophils RBC Morphology Sodium 138 Potassium 4.4 Chloride 98 Carbon Dioxide 35.0 H Anion Gap 5.0 BUN 17 Creatinine 0.7 Estimated GFR/1.73 m2 >= 60.00 Glucose 106 Calcium 8.7 Total Bilirubin 0.1 L AST 47 H ALT 60 H Alkaline Phosphatase 126 H Total Protein 7.8 Albumin 2.7 L Procalcitonin < 0.1 Add-On Test Request DONE 05/27/22 05:36 WBC 15.45 H RBC 3.99 Hgb 10.5 L Hct 35.0 L MCV 88 MCH 26.3 L MCHC 30.0 L RDW 15.9 H Plt Count 618 H MPV 9.2 Immature Gran % 0.0 Neutrophils % 84.0 Band Neutrophils % 2 Lymphocytes % 10.0 Monocytes % 3.0 Eosinophils % 0.0 Basophils % 0.0 Metamyelocytes % 1 Nucleated RBC % 0.0 Absolute Neutrophils 13.29 H Absolute Lymphocytes 1.55 Absolute Monocytes 0.46 Absolute Eosinophils 0.00 Absolute Basophils 0.00 RBC Morphology Normal Sodium Potassium Chloride Carbon Dioxide Anion Gap BUN Creatinine Estimated GFR/1.73 m2 Glucose Calcium Total Bilirubin AST ALT Alkaline Phosphatase Total Protein Albumin Procalcitonin Add-On Test Request
[2022-05-27] MEDS: AZITHROMYCIN 500 MG in Normal Saline 250 ML 250 MG IVPB (22:41)
[2022-05-27] MEDS: Normal Saline 500 ML 30 ML IV (22:42)
[2022-05-27] MEDS: Levalbuterol 1.25 MG/3 ML UPD VIAL UPD (23:19)
[2022-05-28] VITALS (9 sets, daily range): BP systolic 117–140; BP diastolic 67–80; PULSE 92–104; RESP 12–24; TEMP 35.9–36.6; O2SAT 88–99
[2022-05-28] MEDS: REMDESIVIR 100 MG in Normal Saline 250 ML 250 MG IVPB ×2 (02:09→23:29)
[2022-05-28 06:55] LABS: Platelet Count 639 10^3/uL (130-400)
[2022-05-28 07:10] LABS: Abs Immature Grans 0.38 10^3/uL (0.0-0.06); Absolute Monocyte Count 1.42 10^3/uL (0.1-0.8); Basophils % 0.3; HCT 34.9 % (36.0-46.0); HGB 10.4 g/dL (11.2-15.7); Immature Grans % 2.4; Lymphocytes % 7.7; MCH 25.9 pg (27.0-33.0); MCHC 29.8 % (32.0-36.0); MCV 87 fL (80-95); MPV 8.9 fL (8.0-11.0); Neutrophils % 80.6; RBC 4.02 10^6/uL (3.93-5.22); RDW 15.8 % (11.7-14.6); RDW-SD 50.4 fL; WBC 15.78 10^3/uL (4.4-10.8)
--- NOTE | 2022-05-28 07:10 | PCNE_ITS ---
Date of service: 05/28/22 Time of Service: 07:11 History of Present Illness Narrative: [facility] History of Present Illness Narrative: This is a 71-year-old lady who had pneumonia about 1 month ago which was treated with Levaquin and improved.? She was bit at home with her son and grandson and has not smoked since she was 59 years old but has COPD with right-sided heart failure in the past and elevated PA pressures by last echocardiogram.? She does have chronic peripheral edema and 2 days prior to admission began to have increasing risk for symptoms reported to the ED with hypoxemia and wheezing with respiratory distress.? She was in acute respiratory failure which responded to repeated Xopenex treatments and O2 supplementation along with BiPAP.? He does have an elevated PCO2 with respiratory acidosis.? After a period of time he was found to have COVID-19 positive status being immunized with a booster dose recently.? He was started on dexamethasone after 1 dose of Solu-Medrol in the ED and remdesivir along with continued IV Zosyn and IV Zithromax for treatment of right infiltrates with persisting so improving by chest x-ray.? At this time as he is more comfortable speaking comfortably and lying in bed with his head almost flat.? She had a Castillo catheter in place and BiPAP continued.? He stated he was constipated but has no other abdominal complaints.? Her edema neuro.- Slightly worse treatment with chronic edema.? He denies any significant weight gain.? She has been sick since Saturday which was 2 days prior to presentation. Interim history Jackie states that she was feeling poorly at home. She could not get her O2 sats above mid 70s. She is feeling better but is small progress. She continues to live with her son and grandson. She does remember me from 2019. She also has thought a lot about CODE STATUS. When I met with her in 2019 she was fairly certain she wanted to be DNR/DNI. She is presently a full code. 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 She understands that ribs might be broken skin may be burned and intubation is not fine for patient or family. 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 She feels well cared for at home. She does feel like she is managing fine and that her life has quality to it. At this time she would like to be a full code as designated in the EMR. She states that her son and grandson can make decisions for her and that they have talked about this a lot at home and if she cannot make her own decisions she is certain that they will make a good decision for her We specifically talked about intubation and how long she would want to be intubated before extubation even if it meant . Without hesitation she said 5 days after 5 days she wants to be extubated. She understands that the incidence of CPR being successful in someone with end-stage COPD is very very slim (3) Chronic obstructive lung disease: Status: Acute Qualifiers: COPD type: emphysema Emphysema type: unspecified Qualified Code(s): J43.9 - Emphysema, unspecified Review of Systems Narrative: Continued shortness of breath, no chest pain, very limited in her abilities to move because of her shortness of breath PFSH All Active Problems (Updated 05/28/22 @ 09:02 by Victoria Bolivar MD, [place]) Advance care planning (Acute) Respiratory failure (Acute) Pneumonia due to COVID-19 virus (Acute) CHF (congestive heart failure) (Chronic) Cervical arthritis with myelopathy (Acute) Hypomagnesemia (Acute) Acute exacerbation of chronic obstructive pulmonary disease (COPD) (Acute) Arthritis (Acute 02/10/13) Chronic obstructive lung disease (Acute) h/o tobacco use, quit 2008 Osteoporosis (Acute 01/14/08) Tachycardia (Chronic) HTN (hypertension) (Chronic) GERD (gastroesophageal reflux disease) (Chronic) Medical History (Updated 05/28/22 @ 09:02 by Victoria Bolivar MD, [place]) Acute on chronic diastolic CHF (congestive heart failure) Acute on chronic respiratory failure with hypoxia and hypercapnia CAP (community acquired pneumonia) COVID-19 -associated with COPD exacerbation GERD (gastroesophageal reflux disease) HTN (hypertension) Parotid mass Resolved after 3 months without intervention Tobacco dependence due to cigarettes Quit smoking when she was 59 years old Surgical History Endoscopic Carpal Tunnel release (03/31/13) Left 7.2.13 Family History Mother Essential hypertension Hyperlipidemia Father Heart disease Neoplasm LUNG Lung cancer Sister No problems noted. Sister No problems noted. Brother No problems noted. Brother No problems noted. Maternal Grandfather Stroke Paternal Grandfather Heart disease Maternal Grandmother Heart disease Paternal Grandmother Stroke Son Diabetes Essential hypertension Daughter No problems noted. Social History Smoking/Tobacco Use Status: Former Tobacco Use tobacco type: cigarettes Quit Date: 02/02/00 Tobacco: How many years used: 50 Second Hand Exposure: Yes Smoking risk assessment performed?: Yes Alcohol Intake: never Drug use: Never Substance use type: does not use Counseling given: No Counseling provided: none Caregiver/Support person: No Household members: family Communication Needs: None Do you need help understanding health information?: Never Pets and animals: Yes Pets and animals: dog(s) Sexually active: No Do you think of yourself as: straight/heterosexual Current gender identity: female What is your relationship status?: How often do you talk on the phone with friends or family?: three or more times per week How often do you get together with friends or relatives?: three or more times per week Do you belong to any clubs or organized social groups?: no Panel score (0-1 are the most socially isolated patients): 1 What type of physical activity do you participate in: none Special juan needs: No Seatbelt use: sometimes Helmet use: No Drive intox or ride w/intox marine engine driver: No Do you feel safe at home: Yes Do you feel safe in your relationship?: Yes Exam Narrative Exam Narrative: Findings 71-year-old woman. Quite perky. Oxygen in place. Heart is regular. Breathing wheezing throughout, shortness of breath, difficult to complete a sentence without taking a breath in the middle. Mood seems excellent Results Last Vital Signs Temp 96.8 F L 05/28/22 03:26 Pulse 99 H 05/28/22 03:26 Resp 24 05/28/22 03:26 BP 117/80 05/28/22 03:26 Pulse Ox 92 05/28/22 03:26 Labs Result diagrams: 05/28/22 06:35 05/27/22 05:36 Labs: Laboratory Results - last 24 hr 05/28/22 06:35 Plt Count 639 H
[2022-05-28 07:19] LABS: Absolute Basophil Count 0.05 10^3/uL (0.0-0.2); Absolute Lymphocyte Count 1.22 10^3/uL (1.2-3.4); Absolute Neutrophil Count 12.72 10^3/uL (1.2-6.7)
[2022-05-28] MEDS: Budesonide/Formoterol 160/4.5 6 GM 60 PUFF INH IH ×2 (07:38→19:54)
[2022-05-28] MEDS: Ipratropium/Albuterol 4 GM 120 PUFF INH IH ×4 (07:39→19:54)
[2022-05-28 07:40] LABS: Basophilic Stippling Present; Diff Comment Diff Reviewed; Platelet Count 665 10^3/uL (130-400)
[2022-05-28 07:41] LABS: Poikilocytes 2+
--- NOTE | 2022-05-28 07:41 | RESPIRATORY ---
Pt has own BiPAP at home and gets supplies through [facility] in the mail.
[2022-05-28] MEDS: Enoxaparin 40 MG/0.4 ML SYR SC (08:29)
[2022-05-28] MEDS: Digoxin 0.125 MG TAB PO (08:30)
[2022-05-28] MEDS: Dexamethasone 10 MG/ML VIAL IVP (08:30)
[2022-05-28] MEDS: Normal Saline Flush 10 ML SYR IVP ×2 (08:30→19:55)
[2022-05-28] MEDS: Furosemide 20 MG TAB PO (08:30)
[2022-05-28] MEDS: Esomeprazole 40 MG CAPCR PO (08:30)
[2022-05-28] MEDS: amLODIPine 10 MG TAB PO (08:31)
--- NOTE | 2022-05-28 10:43 | CMPROGNOTE_ITS ---
- If Service Date Differs Date of service: 05/28/22 Time of Service: 10:43 Care Management Progress Note S/O: Jackie is on Covid precautions, so CM could not meet with her in person, but called into her room instead. She stated that she is feeling better, although she continues to require supplemental O2. Per report, she is on 5L O2. She reported that she is very independent, and lives with her son. She does not anticipate the need for services upon discharge. Jackie asked CM to cancel two a ppointments this week that she will miss, CM called and cancelled them at her request. CM will continue to follow. A: Jackie is a 71 year old female admitted to [facility] on 05/25/22 with COPD exacerbation, COVID pneumonia. P: Anticipate Jackie will return home once medically cleared. She will transport home via private vehicle by family. She will follow up with her PCP and discharge plan of care. CM will continue to follow.
[2022-05-28] MEDS: Acetaminophen 325 MG TAB 650 MG PO (20:19)
--- NOTE | 2022-05-28 21:35 | W.PM.PROGNOT ---
Date of Service Date of service: 05/28/22 Time of Service: 21:35 Assessment and Plan Assessment and plan (1) Pneumonia due to COVID-19 virus: Start date: 05/25/22 Status: Acute Assessment and plan: Presented with hypoxemia, respiratory distress as well as respiratory failure he is found to be COVID-19 positive. Persistent right infiltrate no improvement from her previous hospitalization when she was treated with Levaquin. She was initiated on Zosyn and Zithromax; Procal negative so Zosyn stopped. Cont dexamethasone in the ED after 1 dose of Solu-Medrol. She will be continued on remdesivir for 3 days at least. (2) Acute exacerbation of chronic obstructive pulmonary disease (COPD): Start date: 05/25/22 Status: Acute Assessment and plan: High flow nasal cannula. Cont home atrovent and prn xopenex. On Dexamethasone. (3) Tachycardia: Status: Chronic Assessment and plan: Patient has history of atrial fibrillation not on anticoagulation and will be placed on Lovenox while in the hospital. She appears to have paroxysmal atrial tachycardia in the ED and this has resolved without specific treatment other than treating her respiratory process. Continued on digoxin; level slightly low at 0.87 (0.9 - 2.0 is therapeutic range). Continue amlodipine. HR mostly in the low 100's. Consider increasing digoxin dosing but HR elevation likely d/t COVID PNA, COPD and albuterol (though using Xopenex which should cause less tachycardia). (4) Hypomagnesemia: Start date: 05/25/22 Status: Acute Assessment and plan: Mg replaced via IV in the ED. Mg now normal at 1.9. (5) HTN (hypertension): Status: Chronic Assessment and plan: SBP 120's to 140 today. Cont amlodipine. Monitor Qualifiers: Hypertension type: essential hypertension Qualified Code(s): I10 - Essential (primary) hypertension (6) CHF (congestive heart failure): Status: Chronic Assessment and plan: Continue morning Lasix as at home. Monitor for fluid overload. She appears to have mostly elevated PA pressures with normal left-ventricular ejection fraction by last echocardiogram in 2019. This can be updated if needed. Qualifiers: Heart failure type: unspecified Qualified Code(s): I50.9 - Heart failure, unspecified Subjective Subjective Patient reports: no new complaints, tolerating a regular diet and afebrile; denies nausea or vomiting Exam Narrative Exam Narrative: Sitting in chair. High flow nasal cannula in place Const General: cooperative and no acute distress Nutritional Appearance: average body habitus Orientation: alert Neck Neck: full ROM and no JVD Resp Effort & Inspection: normal respiratory effort Auscultation: diminished lung sounds, rhonchi and wheezes GI Palpation: soft and nontender Auscultation: normal bowel sounds Skin General skin exam: no rashes or lesions noted Neuro General: patient alert, patient awake and no focal motor deficits Cranial Nerves: facial strength normal Cognition: normal cognition Speech: speech normal Extrem General: no calf tenderness, edema and other (TEDS in place) Objective Last Vital Signs Temp 36.5 C 05/28/22 20:02 Pulse 104 H 05/28/22 20:02 Resp 18 05/28/22 20:02 BP 136/69 05/28/22 20:02 Pulse Ox 90 L 05/28/22 20:02 Laboratory Results - last 24 hr 05/28/22 05/28/22 06:35 06:35 WBC 15.78 H RBC 4.02 Hgb 10.4 L Hct 34.9 L MCV 87 MCH 25.9 L MCHC 29.8 L RDW 15.8 H Plt Count 639 H 665 H MPV 8.9 Immature Gran % 2.4 Neutrophils % 80.6 Lymphocytes % 7.7 Monocytes % 9.0 Eosinophils % 0.0 Basophils % 0.3 Nucleated RBC % 0.0 Absolute Neutrophils 12.72 H Absolute Lymphocytes 1.22 Absolute Monocytes 1.42 H Absolute Eosinophils 0.00 Absolute Basophils 0.05 RBC Morphology See Below Poikilocytosis 2+ Basophilic Stippling Present
[2022-05-28] MEDS: AZITHROMYCIN 500 MG in Normal Saline 250 ML 250 MG IVPB (22:07)
[2022-05-29] VITALS (18 sets, daily range): BP systolic 123–143; BP diastolic 66–74; PULSE 80–115; RESP 4–32; TEMP 36–36.7; O2SAT 86–99
[2022-05-29] MEDS: Levalbuterol 1.25 MG/3 ML UPD VIAL UPD ×4 (03:25→21:13)
[2022-05-29] MEDS: Acetaminophen 325 MG TAB 650 MG PO ×4 (03:25→22:17)
[2022-05-29] MEDS: Budesonide/Formoterol 160/4.5 6 GM 60 PUFF INH IH ×2 (07:43→19:34)
[2022-05-29] MEDS: Ipratropium/Albuterol 4 GM 120 PUFF INH IH ×2 (07:44→19:34)
[2022-05-29] MEDS: Furosemide 40 MG TAB PO (08:42)
[2022-05-29] MEDS: Esomeprazole 40 MG CAPCR PO (08:42)
[2022-05-29] MEDS: Digoxin 0.125 MG TAB PO (08:42)
[2022-05-29] MEDS: amLODIPine 10 MG TAB PO (08:42)
[2022-05-29] MEDS: Dexamethasone 10 MG/ML VIAL IVP (08:43)
[2022-05-29] MEDS: Enoxaparin 40 MG/0.4 ML SYR SC (08:43)
--- NOTE | 2022-05-29 09:50 | CMPROGNOTE_ITS ---
- If Service Date Differs Date of service: 05/29/22 Time of Service: 09:50 Care Management Progress Note S/O: Jackie is on Covid precautions. She is on 5L NC and being treated with Remdesivir, IV ABX, steroids and on Telemetry. Per pt, CPAP was worn for 4-5 hours last night. Jackie is encouraged to use her Incentive spirometer and Acapella in her room. She is tolerating the acapella well, but is having a difficult time taking deep breaths when using her IS. Sputum culture is pending. Yesterday, Jackie shared with CM that she is very independent at baseline and lives with her son. She does not anticipate the need for services upon discharge. Jackie asked CM to cancel two appointments this week that she will miss, CM called and cancelled them at her request. CM will continue to follow. A: Jackie is a 71 year old female admitted to [facility] on 05/25/22 with COPD exacerbation, COVID pneumonia. P: Anticipate Jackie will return home once medically cleared. She will transport home via private vehicle by family. She will follow up with her PCP and discharge plan of care. CM will continue to follow.
[2022-05-29] MEDS: Normal Saline Flush 10 ML SYR IVP ×3 (12:06→23:41)
--- NOTE | 2022-05-29 17:18 | W.PM.PROGNOT ---
Date of Service Date of service: 05/29/22 Time of Service: 17:18 Assessment and Plan Assessment and plan (1) Pneumonia due to COVID-19 virus: Start date: 05/25/22 Status: Acute Assessment and plan: Presented with hypoxemia, respiratory distress as well as respiratory failure he is found to be COVID-19 positive. Persistent right infiltrate no improvement from her previous hospitalization when she was treated with Levaquin. She was initiated on Zosyn and Zithromax. Zosyn was stopped when procalcitonin was less than 0.1 although this was not trended. I added Rocephin to her azithromycin pending sputum cultures and urine bacterial antigens (legionella and streptococcus) change dexamethasone to 6 mg daily. Baricitinib added to her Remdesivir. (2) Acute exacerbation of chronic obstructive pulmonary disease (COPD): Start date: 05/25/22 Status: Acute Assessment and plan: High flow nasal cannula. Cont home atrovent and prn xopenex. On Dexamethasone. (3) Tachycardia: Status: Chronic Assessment and plan: Patient has history of atrial fibrillation not on anticoagulation and will be placed on Lovenox while in the hospital. She appears to have paroxysmal atrial tachycardia in the ED and this has resolved without specific treatment other than treating her respiratory process. Continued on digoxin; level slightly low at 0.87 (0.9 - 2.0 is therapeutic range). Continue amlodipine. HR mostly in the low 100's. Consider increasing digoxin dosing but HR elevation likely d/t COVID PNA, COPD and albuterol (though using Xopenex which should cause less tachycardia). (4) HTN (hypertension): Status: Chronic Assessment and plan: SBP 120's to 140 today. Cont amlodipine. Monitor Qualifiers: Hypertension type: essential hypertension Qualified Code(s): I10 - Essential (primary) hypertension (5) CHF (congestive heart failure): Status: Chronic Assessment and plan: Hx of chronic HFPEF. Continue morning Lasix as at home. Monitor for fluid overload. She appears to have mostly elevated PA pressures with normal left-ventricular ejection fraction by last echocardiogram in 2019. This can be updated if needed. Qualifiers: Heart failure type: unspecified Qualified Code(s): I50.9 - Heart failure, unspecified Subjective Subjective Interval history since last seen: No new complaints. Cough is moist occasionally productive of yellowish mucus. She is afebrile. At rest she is not short of breath but with any activity she gets dyspneic and desaturates into the mid 80s. Currently on 5 L/min oxygen With oxygen saturation in the low 90s. She currently on Decadron 10 mg IV daily along with Remdesivir 100 mg daily for COVID-19 pneumonia. She was also put on azithromycin for possible concomitant bacterial coinfection. Her checks x-ray showed a right upper lobe infiltrate with atelectasis and or scarring. Based on the fact she is coughing up some purulent sputum and her pneumonia is not getting better quickly I have added Rocephin in addition to her azithromycin. Exam Narrative Exam Narrative: Elderly female laying up in her chair watching TV eating her dinner. She is alert and oriented person place time circumstance Lungs with scattered bilateral diffuse inspiratory and expiratory wheezes Heart is regular but tachycardic Abdomen soft nontender Lower extremities with 1+ bilateral pretibial and ankle edema. Objective Last Vital Signs Temp 36.7 C 05/29/22 17:06 Pulse 101 H 05/29/22 17:06 Resp 28 H 05/29/22 17:06 BP 137/68 05/29/22 17:06 Pulse Ox 92 05/29/22 17:06
[2022-05-29] MEDS: REMDESIVIR 100 MG in Normal Saline 250 ML 250 MG IVPB (22:17)
[2022-05-29 23:15] LABS: Legionella Ag Detection Urine Negative (Negative)
[2022-05-29] MEDS: AZITHROMYCIN 500 MG in Normal Saline 250 ML 250 MG IVPB (23:40)
[2022-05-30] VITALS (12 sets, daily range): BP systolic 130–160; BP diastolic 63–79; PULSE 57–99; RESP 4–34; TEMP 35.6–36.6; O2SAT 88–94
--- NOTE | 2022-05-30 | DI.CT_ITS ---
Exam(s) CT CHEST PE CTA EXAM: CT CHEST PE CTA CLINICAL HISTORY: COVID-19 pneumonia, elevated d-dimer; hypoxia. TECHNIQUE: Imaging Protocol: CT angiography of the chest was performed using pulmonary embolus sherly col. Multi planar reconstructions were performed. CONTRAST MATERIAL: Intravenous: Omnipaque 350 Contrast volume: 100 cc COMPARISON: CT CT ABDOMEN PELVIS WO from 12/31/2018 CR,XR XR PORTABLE CHEST AP from 04/01/2022 CR,XR XR PORTABLE CHEST AP from 05/25/2022 FINDINGS: CHEST: PULMONARY ARTERIES: There are no intraluminal filling defects to suggest acute pulmonary emboli. LUNGS: There is significant infiltrate in the right upper lobe which corresponds to what is seen on r ecent chest x-ray of 05/25/2022. This extends from the right parahilar region out to the right upper lobe pleural surface, this superimposed upon emphysematous changes in the upper lobes. No associate d rib destruction. No pleural effusion. In the opposite-left lung there is some scarring in the sub apical region the upper lobe.. There are no pleural effusions. No significant focal findings in th e trachea and mainstem bronchi. MEDIASTINUM: There is no hilar nor mediastinal adenopathy. Thyroid gland size is normal. Small sub c m nodule noted in the left thyroid lobe. CARDIAC: Heart size is upper normal. There is no pericardial effusion.Caliber of the thoracic aorta is within normal limits. No evidence of aortic dissection. There is no significant shift of the inte rventricular septum. PARTIALLY VISUALIZED UPPERMOST ABDOMEN: There is a small nodule in the left adrenal gland measuring 1 x 1 cm. This is unchanged from CT scan of December 2018 and therefore probably a small benign adenoma. Right adrenal gland unremarkable. No splenomegaly. OSSEOUS: No significant osseous lesions.. IMPRESSION: 1. No evidence of acute pulmonary emboli. However, there is a prominent area of infiltrate in the ri ght upper lobe, correspond to what is seen on the recent chest x-ray of 05/25/2022, this infiltrate e xtending from the right parahilar region out to the upper lobe pleural surface, not associated with h ilar nor mediastinal adenopathy nor pleural effusion. This infiltrate requires imaging follow-up to resolution to rule out malignancy. These findings are superimposed upon emphysematous changes. 2. No evidence for dissection nor pericardial effusion. 3. 1 centimeter unchanged left adrenal nodule, unchanged from 2019 and therefore most probably a odni gn adenoma. RADIATION DOSE DELIVERED: 237.44mGy.cm Total DLP DATA REPOSITORY: All CT scans at this facility are submitted to the National Radiology Data Registry (NRDR) Dose Index Registry (DIR) with the [employer] (ACR). RADIATION OPTIMIZATION: All CT scans at this facility use at least one of these dose optimization te chniques: automated exposure control; mA and/or kV adjustment per patient size (includes targeted exa ms where dose is matched to clinical indication); or iterative reconstruction.
[2022-05-30] MEDS: Levalbuterol 1.25 MG/3 ML UPD VIAL UPD ×2 (05:15→07:49)
[2022-05-30] MEDS: Acetaminophen 325 MG TAB 650 MG PO ×4 (05:16→22:13)
[2022-05-30 06:47] LABS: ESR 82 mm/hr (0-30)
[2022-05-30 07:10] LABS: ALT 71 U/L (14-59); AST 28 U/L (15-37); Alkaline Phosphatase 107 U/L (46-116); Anion Gap -3.1 mmol/L (3-11); BUN 25 mg/dL (7-18); Bilirubin, Total 0.2 mg/dL (0.2-1.0); C-Reactive Protein 0.31 mg/dL (0.0-0.3); CO2 41.1 mmol/L (21.0-32.0); CREATININE 0.9 mg/dL (0.55-1.02); Calcium 8.8 mg/dL (8.5-10.1); Chloride 96 mmol/L (98-107); Estimated GFR 67.92 (mL/min/1.73m2); Glucose 106 mg/dL (74-106); LDH 214 U/L (81-234); Potassium 4.4 mmol/L (3.5-5.1); Sodium 134 mmol/L (136-145); Total Protein 7.5 g/dL (6.4-8.2)
[2022-05-30 07:24] LABS: D-Dimer 1349 ng/mlFEU (<500)
[2022-05-30 07:35] LABS: Ferritin 147 ng/mL (8-252)
[2022-05-30 07:44] LABS: Procalcitonin < 0.1 ng/mL
[2022-05-30] MEDS: Budesonide/Formoterol 160/4.5 6 GM 60 PUFF INH IH ×2 (07:49→20:28)
[2022-05-30] MEDS: Enoxaparin 40 MG/0.4 ML SYR SC (08:28)
[2022-05-30] MEDS: Digoxin 0.125 MG TAB PO (08:28)
[2022-05-30] MEDS: Esomeprazole 40 MG CAPCR PO (08:28)
[2022-05-30] MEDS: Normal Saline Flush 10 ML SYR IVP ×2 (08:28→20:30)
[2022-05-30] MEDS: amLODIPine 10 MG TAB PO (08:29)
[2022-05-30] MEDS: Furosemide 20 MG TAB PO (08:29)
[2022-05-30] MEDS: Dexamethasone 10 MG/ML VIAL 6 MG IVP (08:29)
--- NOTE | 2022-05-30 11:38 | CMPROGNOTE_ITS ---
- If Service Date Differs Date of service: 05/30/22 Time of Service: 11:38 Care Management Progress Note S/O: Jackei continues to be closely monitored under Covid precautions. Per report, she is significantly hypoxemic with ambulation. She is still requiring 5L O2 per nasal cannula. ordered a CTA of chest to ruse out P.E. and evaluate for worsening pneumonia. CM will continue to follow. A: Jackie is a 71 year old female admitted to [facility] on 05/25/22 with COPD exacerbation, COVID pneumonia. P: Anticipate Jackie will return home once medically cleared. She will transport home via private vehicle by family. She will follow up with her PCP and discharge plan of care. CM will continue to follow.
[2022-05-30] MEDS: Ipratropium/Albuterol 4 GM 120 PUFF INH IH ×3 (12:32→20:29)
--- NOTE | 2022-05-30 12:59 | PGE_ITS ---
Date of Service Date of service: 05/30/22 Time of Service: 13:00 Assessment and Plan Assessment and plan (1) Pneumonia due to COVID-19 virus: Start date: 05/25/22 Status: Acute Assessment and plan: check CTA of chest to rule out P.E. and evaluate for worsening pneumonia. cont. Remdesivir, decadron, and baricitinib. continue antibacterial treatment w/ Rocephin and azithromycin pending sputum cultures and urine bacterial antigens. repeat her procalcitonin. (2) Acute exacerbation of chronic obstructive pulmonary disease (COPD): Start date: 05/25/22 Status: Acute Assessment and plan: High flow nasal cannula. Cont home atrovent and prn xopenex. On Dexamethasone. (3) Tachycardia: Status: Chronic Assessment and plan: hx of afib but remains in SR to ST. currently on digoxin. no indications to adjust dose at present. I suspect that the tachcardia is in response to her acute pulmonary issues. however need to rule out P.E. given her elevated d-dimer and persistent hypoxemia (4) HTN (hypertension): Status: Chronic Assessment and plan: SBP 120's to 140 today. Cont amlodipine. Monitor Qualifiers: Hypertension type: essential hypertension Qualified Code(s): I10 - Essential (primary) hypertension (5) CHF (congestive heart failure): Status: Chronic Assessment and plan: Hx of chronic HFPEF. Continue morning Lasix as at home. Monitor for fluid overload. She appears to have mostly elevated PA pressures with normal left-ventricular ejection fraction by last echocardiogram in 2019. this needs re-evaluation in light of her current respiratory deterioration Qualifiers: Heart failure type: unspecified Qualified Code(s): I50.9 - Heart failure, unspecified Subjective Subjective Interval history since last seen: Patient states that she feels less dyspneic today although nursing does report that with activity she still gets significantly hypoxemic with SPO2 in the high 70s to mid 80s with activity before she will finally recover into the low 90s. She is still requiring 5 L/min per nasal cannula. She has been wearing her BiPAP at night but only for about 4 hours. States that she is now coughing up some purulent yellow mucus which was sent for culture. She remains afebrile. Still has a leukocytosis of 15,000. Her D-dimer is elevated at 1349. Because of her persistent hypoxemia in the setting of COVID-19 pneumonia and elevated D- dimer I have ordered a CTA of her chest and an echocardiogram. She has known pulmonary hypertension but her last echocardiogram was from 2019 at which point it showed normal left ventricular function and normal right ventricular function but moderate pulmonary hypertension with RVSP of 40 to 50 mm. Exam Narrative Exam Narrative: Jackie is sitting up at the bedside working w/ her I.S. She is able to talk in complete sentences w/out dyspnea Lungs: improved aeration in all lung das. Right side is clear; still some high pitched wheezing in the left lung Heart: RRR (review of telemetry reveals her rhythm has remained in SR w/ rates of 80 to 132 ) Legs: 1+ bilateral pitting lower leg edema Objective Last Vital Signs Temp 36.6 C 05/30/22 11:11 Pulse 97 H 05/30/22 11:11 Resp 34 H 05/30/22 11:11 BP 134/66 05/30/22 11:11 Pulse Ox 88 L 05/30/22 11:11 Laboratory Results - last 24 hr 05/29/22 05/30/22 05/30/22 12:05 05:29 05:29 ESR D-Dimer Sodium 134 L Potassium 4.4 Chloride 96 L Carbon Dioxide 41.1 H Anion Gap -3.1 L BUN 25 H Creatinine 0.9 Est GFR (CKD-EPI 2020) 67.92 Glucose 106 Calcium 8.8 Ferritin 147 Total Bilirubin 0.2 AST 28 ALT 71 H Alkaline Phosphatase 107 Lactate Dehydrogenase 214 C-Reactive Protein 0.31 H Total Protein 7.5 Albumin 3.0 L Procalcitonin < 0.1 Urine Legionella Ag Negative 05/30/22 05/30/22 05:29 05:29 ESR 82 H D-Dimer 1349 H Sodium Potassium Chloride Carbon Dioxide Anion Gap BUN Creatinine Est GFR (CKD-EPI 2020) Glucose Calcium Ferritin Total Bilirubin AST ALT Alkaline Phosphatase Lactate Dehydrogenase C-Reactive Protein Total Protein Albumin Procalcitonin Urine Legionella Ag
[2022-05-30 15:56] LABS: Streptococcus Pneumoniae Ag, U Negative (Negative)
[2022-05-30] MEDS: REMDESIVIR 100 MG in Normal Saline 250 ML 250 MG IVPB (20:29)
--- NOTE | 2022-05-30 20:54 | DI.VRAD_ITS ---
PROCEDURE INFORMATION: Exam: CTA Chest With Contrast Exam date and time: 05/30/2022 7:43 PM Age: 71 years old Clinical indication: Other: Covid-19, pneumonia, elevated d-dimer, hypoxia TECHNIQUE: Imaging protocol: Computed tomographic angiography of the chest with contrast. 3D rendering (Not supervised by radiologist): MIP and/or 3D reconstructed images were created by the technologist. Radiation optimization: All CT scans at this facility use at least one of these dose optimization techniques: automated exposure control; mA and/or kV adjustment per patient size (includes targeted exams where dose is matched to clinical indication); or iterative reconstruction. Contrast material: OMNI 350; Contrast volume: 100 ml; Contrast route: INTRAVENOUS (IV); COMPARISON: CR XR PORTABLE CHEST AP 05/25/2022 6:29 PM FINDINGS: Pulmonary arteries: Pulmonary arteries are normal in course and caliber. No definitive pulmonary emboli identified. Aorta: Aorta normal in course and caliber. Mild calcific atherosclerotic disease of the aorta. No acute aortic pathology. Thyroid: Unremarkable thyroid gland. Lungs: COPD related lung changes and severe diffuse centrilobular emphysema which is upper lobe predominant. Platelike consolidation with associated traction bronchiectasis and surrounding architectural distortion in the right upper lobe linear area of scarring and traction bronchiectasis in the left upper lobe. Mosaic attenuation of the lungs, compatible with chronic small airways disease. Patchy nodularities in the bilateral lung bases. Scattered sub 6 mm pulmonary nodules. For example, 5 mm nodule right lower lobe on image 340 series 8 as another example, a 5 mm nodule right lower lobe on image 286 series 8. No other airspace consolidations. No significant interstitial disease. Bilateral segmental bronchial wall thickening. Airways otherwise completely patent. Pleural spaces: No pleural effusion, thickening, or pneumothorax. Heart: Normal heart size and atrial ventricular concordance. Left atrial appendage is patent. Mild calcific coronary artery disease involving the left coronary artery and left main, as well as the left circumflex. Normal pericardium. Mediastinal space: Unremarkable mediastinum. Lymph nodes: No thoracic adenopathy. Intraperitoneal space: No acute upper abdominal findings. Bones/joints: Old/healed fracture to the right 1st rib. No acute skeletal abnormality or aggressive osseous lesion. Mild multilevel degenerative changes of the spine. Soft tissues: No acute body wall soft tissue findings. IMPRESSION: 1. No pulmonary emboli. 2. Known right upper lobe findings are most compatible with a chronic area of platelike scarring and atelectasis. Consider residual or superimposed pneumonia if the patient is presenting with infectious symptomatology, although radiographically this is felt less likely. 3. Scattered areas of chronic scarring with traction bronchiectasis seen throughout the lungs, more pronounced in the left upper lobe. 4. Severe COPD/emphysema. 5. Chronic versus acute bronchitis. 6. Questionable chronic versus acute subclinical infectious/inflammatory alveolar disease in the bilateral lung bases. 7. Scattered sub 6 mm pulmonary nodules, nonspecific. For patients at low risk (minimal or absent history of smoking and of other known risk factors), no routine follow-up is indicated. For patients at high risk (history of smoking or of other known risk factors), consider optional CT Chest at 12 months. (Reference: Ramya) 8. Other incidental findings as detailed above. REFERENCES: Ramya H, et al. Guidelines for Management of Incidental Pulmonary Nodules Detected on CT Images: From the Fleischner Society 2017. Radiology. 2017;284(1):228-243. Dictated and Authenticated by: Doug Casillas MD. Ordering:OLIVE Back MD
[2022-05-30] MEDS: Omnipaque 350 MG/ML 100 ML BTL IJ (21:31)
[2022-05-30] MEDS: AZITHROMYCIN 500 MG in Normal Saline 250 ML 250 MG IVPB (23:42)
[2022-05-31] VITALS (9 sets, daily range): BP systolic 120–156; BP diastolic 66–73; PULSE 79–96; RESP 18–24; TEMP 36–36.9; O2SAT 89–93
[2022-05-31] MEDS: Acetaminophen 325 MG TAB 650 MG PO ×3 (03:48→21:13)
[2022-05-31 07:39] LABS: Platelet Count 842 10^3/uL (130-400)
[2022-05-31] MEDS: Ipratropium/Albuterol 4 GM 120 PUFF INH IH ×4 (08:12→20:51)
[2022-05-31] MEDS: Budesonide/Formoterol 160/4.5 6 GM 60 PUFF INH IH ×2 (08:12→20:50)
[2022-05-31] MEDS: Dexamethasone 10 MG/ML VIAL 6 MG IVP (08:14)
[2022-05-31] MEDS: Enoxaparin 40 MG/0.4 ML SYR SC (08:15)
[2022-05-31] MEDS: Normal Saline Flush 10 ML SYR IVP ×2 (08:15→20:45)
[2022-05-31] MEDS: Digoxin 0.125 MG TAB PO (08:16)
[2022-05-31] MEDS: amLODIPine 10 MG TAB PO (08:16)
[2022-05-31] MEDS: Furosemide 40 MG TAB PO (08:16)
[2022-05-31] MEDS: Esomeprazole 40 MG CAPCR PO (08:17)
--- NOTE | 2022-05-31 10:56 | CMPROGNOTE_ITS ---
- If Service Date Differs Date of service: 05/31/22 Time of Service: 10:56 Care Management Progress Note S/O: Jackie continues to be closely monitored. She remains on 5L O2, nasal cannula. Per nursing, she stated she had pain in her BLE's today, and pitting edema was noted. Per report, she may require new home O2 upon discharge. CM will continue to follow. A: Jackie is a 71 year old female admitted to [facility] on 05/25/22 with COPD exacerbation, COVID pneumonia. P: Anticipate Jackie will return home once medically cleared. She will transport home via private vehicle by family. She will follow up with her PCP and discharge plan of care. CM will continue to follow.
[2022-05-31] MEDS: Normal Saline 500 ML 30 ML IV (12:36)
--- NOTE | 2022-05-31 17:37 | W.PM.PROGNOT ---
Date of Service Date of service: 05/31/22 Time of Service: 17:37 Assessment and Plan Assessment and plan (1) Pneumonia due to COVID-19 virus: Start date: 05/25/22 Status: Acute Assessment and plan: CT of the chest shows right upper lobe infiltrate extending from hilum out to the upper lobe. Her procalcitonin levels been less than 0.1x2 studies and she has had no fever. Although sputum is yellowish in coloration she is not growing a predominant organisms. Her urine Legionella and urine Streptococcus pneumonia antigens were negative. Her CT of her chest is not consistent with with a COVID-pneumonia which typically has diffuse bilateral groundglass changes with basilar predominance at first. This is more concerning for potential malignancy. I will ask pulmonary to consult on her tomorrow. In the interim we will continue treating her for her COVID-19 infection. (2) Acute exacerbation of chronic obstructive pulmonary disease (COPD): Start date: 05/25/22 Status: Acute Assessment and plan: Continue supportive care with oxygen, Combivent inhaler, Symbicort, and the addition of Spiriva. In light of the lack of bacterial component to her infection I have discontinued the Rocephin and the azithromycin. I did put her on some Diflucan for the Corinne albicans in her sputum which is probably from oral colonization from being on antibiotics. I did keep her on some doxycycline for COPD exacerbation. She remains on Decadron for her COVID-19 infection. I will asked pulmonary to evaluate her right upper lobe infiltrate and make recommendations on her COPD treatment and follow-up on her right upper lobe consolidation. (3) HTN (hypertension): Status: Chronic Assessment and plan: In light of her bilateral leg edema we will discontinue her amlodipine and put her on Diovan Qualifiers: Hypertension type: essential hypertension Qualified Code(s): I10 - Essential (primary) hypertension (4) CHF (congestive heart failure): Status: Chronic Assessment and plan: Hx of chronic HFPEF. patient needs her lasix to be increased rather than just continuing her home dose. I have dc'ed her po dose and put her on iv lasix. I will add spironolactone. Also her norvasc may be contributing to her leg edema. An updated echo was done yesterday. This demonstrated the followin. Suboptimal image quality 2. LV normal size and systolic function with an LVEF 60% 3. No hemodynamically significant valve disease. 4. Number of aortic valve leaflets cannot be assessed. Aortic valve not well visualized. No aortic stenosis and no aortic regurgitation. 5. RV is borderline dilated with normal RV systolic function CT scan of the chest yesterday demonstrated the following: IMPRESSION: 1. No evidence of acute pulmonary emboli.? However, there is a prominent area of infiltrate in the right upper lobe, correspond to what is seen on the recent chest x-ray of 05/25/2022, this infiltrate extending from the right parahilar region out to the upper lobe pleural surface, not associated with hilar nor mediastinal adenopathy nor pleural effusion.? This infiltrate requires imaging follow-up to resolution to rule out malignancy.? These findings are superimposed upon emphysematous changes. 2. No evidence for dissection nor pericardial effusion. 3. 1 centimeter unchanged left adrenal nodule, unchanged from 2019 and therefore most probably a benign adenoma [facility] in favor of Diovan Qualifiers: Heart failure type: unspecified Qualified Code(s): I50.9 - Heart failure, unspecified (5) Abnormal chest CT: Status: Acute Assessment and plan: Abnormal infiltrate right upper lobe noted on chest CT. Infiltrate extends from right perihilar region out to the upper lobe pleural surface but not associated with hilar adenopathy or pleural effusion. Malignancy has not been excluded. Follow-up imaging recommended. Subjective Subjective Interval history since last seen: Patient reports that she is coughing up thick yellow sputum. Sputum was sent for culture. Sputum is growing rare growth of normal naomy and Corinne albicans. Rare gram-positive cocci was seen on gram stain. Patient is currently on Rocephin and azithromycin. Repeated procalcitonin levels have been less than 0.1. Patient still gets moderately dyspneic with any activity and has desaturation to the mid 80s. She quickly recovers into the low 90s on 5 L/min per nasal cannula. Patient is complaining of leg edema and pain Exam Narrative Exam Narrative: Elderly white female sitting up at the bedside leaning against her bedside table. She just completed her dinner. She is alert and oriented and able to talk in complete sentences. Neck without accessory respiratory muscle use Lungs with scattered expiratory wheezes Heart is regular Abdomen soft and nontender Legs with 2+ pitting edema Objective Last Vital Signs Temp 36.9 C 05/31/22 16:07 Pulse 91 H 05/31/22 16:07 Resp 18 05/31/22 16:07 BP 120/68 05/31/22 16:07 Pulse Ox 93 05/31/22 16:07 Laboratory Results - last 24 hr 05/31/22 06:47 Plt Count 842 H*
[2022-05-31] MEDS: Furosemide 40 MG/4 ML VIAL IVP (20:44)
[2022-05-31] MEDS: Fluconazole 100 MG TAB 200 MG PO (20:45)
[2022-05-31] MEDS: REMDESIVIR 100 MG in Normal Saline 250 ML 250 MG IVPB (20:45)
[2022-05-31] MEDS: Doxycycline Hyclate 100 MG CAP PO (20:45)
[2022-06-01] VITALS (9 sets, daily range): BP systolic 118–156; BP diastolic 63–75; PULSE 71–97; RESP 12–28; TEMP 36.6–36.8; O2SAT 92–99
[2022-06-01 07:10] LABS: Abs Immature Grans 0.24 10^3/uL (0.0-0.06); Absolute Basophil Count 0.03 10^3/uL (0.0-0.2); Absolute Eosinophil Count 0.02 10^3/uL (0.0-0.7); Basophils % 0.2; Eosinophils % 0.1; HGB 10.8 g/dL (11.2-15.7); Immature Grans % 1.5; Lymphocytes % 4.6; MCH 25.7 pg (27.0-33.0); MCHC 29.2 % (32.0-36.0); MCV 88 fL (80-95); MPV 9.1 fL (8.0-11.0); Monocytes % 8.7; Neutrophils % 84.9; RDW 15.9 % (11.7-14.6); RDW-SD 51.5 fL; WBC 16.48 10^3/uL (4.4-10.8)
[2022-06-01 07:16] LABS: Absolute Lymphocyte Count 0.76 10^3/uL (1.2-3.4); Absolute Monocyte Count 1.43 10^3/uL (0.1-0.8); Absolute Neutrophil Count 13.99 10^3/uL (1.2-6.7)
[2022-06-01 07:36] LABS: Diff Comment Diff Reviewed; Hypochromasia 1+; Platelet Count 717 10^3/uL (130-400)
[2022-06-01 07:53] LABS: D-Dimer 888 ng/mlFEU (<500)
[2022-06-01 08:02] LABS: ALT 61 U/L (14-59); AST 28 U/L (15-37); Alkaline Phosphatase 94 U/L (46-116); BUN 23 mg/dL (7-18); Bilirubin, Total 0.2 mg/dL (0.2-1.0); CREATININE 0.8 mg/dL (0.55-1.02); Calcium 8.8 mg/dL (8.5-10.1); Chloride 94 mmol/L (98-107); Estimated GFR 78.24 (mL/min/1.73m2); Ferritin 166 ng/mL (8-252); Glucose 95 mg/dL (74-106); Potassium 4.9 mmol/L (3.5-5.1); Sodium 137 mmol/L (136-145); Total Protein 7.2 g/dL (6.4-8.2)
[2022-06-01 08:20] LABS: C-Reactive Protein 0.33 mg/dL (0.0-0.3)
[2022-06-01] MEDS: Enoxaparin 40 MG/0.4 ML SYR SC (08:40)
[2022-06-01] MEDS: Furosemide 40 MG/4 ML VIAL IVP (08:41)
[2022-06-01] MEDS: Dexamethasone 10 MG/ML VIAL 6 MG IVP (08:41)
[2022-06-01] MEDS: Normal Saline Flush 10 ML SYR IVP ×3 (08:42→20:05)
[2022-06-01] MEDS: Doxycycline Hyclate 100 MG CAP PO (08:43)
[2022-06-01] MEDS: Esomeprazole 40 MG CAPCR PO (08:43)
[2022-06-01] MEDS: Digoxin 0.125 MG TAB PO (08:43)
[2022-06-01] MEDS: Budesonide/Formoterol 160/4.5 6 GM 60 PUFF INH IH ×2 (08:55→20:06)
[2022-06-01] MEDS: Ipratropium/Albuterol 4 GM 120 PUFF INH IH ×3 (08:56→20:05)
[2022-06-01] MEDS: Acetaminophen 325 MG TAB 650 MG PO ×3 (09:07→20:21)
[2022-06-01] MEDS: Valsartan 40 MG TAB 20 MG PO (09:07)
[2022-06-01] MEDS: Tiotropium Bromide-Respimat 10 PUFF INH 2 PUFF IH (09:50)
--- NOTE | 2022-06-01 11:08 | CMPROGNOTE_ITS ---
- If Service Date Differs Date of service: 06/01/22 Time of Service: 11:08 Care Management Progress Note S/O: CM spoke to Jackie over the phone today, who reported that she is feeling good. She stated that her O2 was weaned down from 5L to 4.5L. She asked about financial assistance, and CM offered to bring her a blank copy of the current financial assistance, which she declined. She stated that she has used it in the past, and knows how to navigate patient accounts after her discharge. Per MD, she will likely return home with new home O2, coordinated by RT. CM will continue to follow. A: Jackie is a 71 year old female admitted to [facility] on 05/25/22 with COPD exacerbation, COVID pneumonia. P: Anticipate Jackie will return home once medically cleared. She will transport home via private vehicle by family. She will follow up with her PCP and discharge plan of care. CM will continue to follow.
[2022-06-01] MEDS: amLODIPine 10 MG TAB PO (14:25)
--- NOTE | 2022-06-01 19:18 | W.PM.PROGNOT ---
Date of Service Date of service: 06/01/22 Time of Service: 19:18 Assessment and Plan Assessment and plan (1) Acute exacerbation of chronic obstructive pulmonary disease (COPD): Start date: 05/25/22 Status: Acute Assessment and plan: Continue supportive care with oxygen, Combivent inhaler, Symbicort, and the addition of Spiriva. In light of the lack of bacterial component to her infection I have discontinued the Rocephin and the azithromycin. I did put her on some Diflucan for the Corinne albicans in her sputum which is probably from oral colonization from being on antibiotics. I did keep her on some doxycycline for COPD exacerbation. She remains on Decadron for her COVID-19 infection. Operations Dispatcher was off sick today and unable to see the patient. (2) HTN (hypertension): Status: Chronic Assessment and plan: Diovan was discontinued due to at [place] side effect of facial paresthesia. She was put back on her Norvasc per her request. Qualifiers: Hypertension type: essential hypertension Qualified Code(s): I10 - Essential (primary) hypertension (3) CHF (congestive heart failure): Status: Chronic Assessment and plan: Hx of chronic HFPEF. patient needs her lasix to be increased rather than just continuing her home dose. She is refusing iv lasix, therefore I will put her on increased dose of her oral lasix at 40 mg bid for 2 to 3 days. An updated echo was done. This demonstrated the followin. Suboptimal image quality 2. LV normal size and systolic function with an LVEF 60% 3. No hemodynamically significant valve disease. 4. Number of aortic valve leaflets cannot be assessed. Aortic valve not well visualized. No aortic stenosis and no aortic regurgitation. 5. RV is borderline dilated with normal RV systolic function CT scan of the chest yesterday demonstrated the following: IMPRESSION: 1. No evidence of acute pulmonary emboli.? However, there is a prominent area of infiltrate in the right upper lobe, correspond to what is seen on the recent chest x-ray of 05/25/2022, this infiltrate extending from the right parahilar region out to the upper lobe pleural surface, not associated with hilar nor mediastinal adenopathy nor pleural effusion.? This infiltrate requires imaging follow-up to resolution to rule out malignancy.? These findings are superimposed upon emphysematous changes. 2. No evidence for dissection nor pericardial effusion. 3. 1 centimeter unchanged left adrenal nodule, unchanged from 2019 and therefore most probably a benign adenoma Qualifiers: Heart failure type: unspecified Qualified Code(s): I50.9 - Heart failure, unspecified (4) Abnormal chest CT: Status: Acute Assessment and plan: Abnormal infiltrate right upper lobe noted on chest CT. Infiltrate extends from right perihilar region out to the upper lobe pleural surface but not associated with hilar adenopathy or pleural effusion. Malignancy has not been excluded. Follow-up imaging recommended. I will have radiology push the images to either [facility] or [facility] and I will get telephone consultation. In the interim, she has been started on Diflucan for the Corinne in her sputum culture. . She is off broad spectrum antibiotics as this is unlikely bacterial given she had no response to the azithromycin and ceftriaxone. I will get fungitel and aspergillus studies but I suspect that this is likely a malignancy (5) COVID-19: Status: Acute Assessment and plan: as her CT scan of her chest was not consistent w/ COVID-19 pneumonia, I will dc her baricitinib but continue the Remdesivir treatement of her COVID-19 infection. She will continue the decadron as she has increased oxygen needs. Hopefully we will be able to wean her down however she has underlying COPD and probably will require home oxygen upon discharge. Subjective Subjective Interval history since last seen: Patient was unhappy with my choice to change her Norvasc to valsartan. I put her back on her valsartan. She also does not want IV Lasix. She indicated the last time she was put on IV Lasix she was over diuresed and required IV fluids. She is well to take her oral furosemide and to double up on her dose. Still has edematous legs. Still gets short of breath with activity. She is afebrile. She still reportedly coughs up yellowish mucus. Sputum is growing Corinne albicans which I presume is colonization from having been on antibiotics and steroids. She is now on Diflucan. She has no symptoms of thrush denies any odynophagia. Exam Narrative Exam Narrative: Alert and oriented person place time circumstance in no acute respiratory distress Oropharynx without exudate no white plaques on the palate. She did take out her dentures for me to examine her soft and hard palate. Lungs are clear with the exception of her right upper lobe where there is bronchovesicular sounds. No rhonchi or wheezing Heart is regular to slightly tachycardic Abdomen soft and nontender. She does note that she is constipated and is taking prune juice. Legs with 1+ bilateral pitting edema Objective Last Vital Signs Temp 36.6 C 06/01/22 18:40 Pulse 81 06/01/22 18:40 Resp 27 H 06/01/22 18:40 BP 146/68 H 06/01/22 18:40 Pulse Ox 92 06/01/22 18:40 Laboratory Results - last 24 hr 06/01/22 06/01/22 06/01/22 06:52 06:52 06:52 WBC 16.48 H RBC 4.20 Hgb 10.8 L Hct 37.0 MCV 88 MCH 25.7 L MCHC 29.2 L RDW 15.9 H Plt Count 717 H MPV 9.1 Immature Gran % 1.5 Neutrophils % 84.9 Lymphocytes % 4.6 Monocytes % 8.7 Eosinophils % 0.1 Basophils % 0.2 Nucleated RBC % 0.0 Absolute Neutrophils 13.99 H Absolute Lymphocytes 0.76 L Absolute Monocytes 1.43 H Absolute Eosinophils 0.02 Absolute Basophils 0.03 RBC Morphology See Below Hypochromasia 1+ D-Dimer 888 H Sodium 137 Potassium 4.9 Chloride 94 L Carbon Dioxide 42.0 H Anion Gap 1.0 L BUN 23 H Creatinine 0.8 Est GFR (CKD-EPI 2020) 78.24 Glucose 95 Calcium 8.8 Ferritin 166 Total Bilirubin 0.2 AST 28 ALT 61 H Alkaline Phosphatase 94 C-Reactive Protein 0.33 H Total Protein 7.2 Albumin 3.0 L
[2022-06-01] MEDS: REMDESIVIR 100 MG in Normal Saline 250 ML 250 MG IVPB (20:04)
[2022-06-01] MEDS: Fluconazole 100 MG TAB 200 MG PO (20:04)
[2022-06-02] VITALS (9 sets, daily range): BP systolic 124–160; BP diastolic 66–71; PULSE 67–89; RESP 12–18; TEMP 36–36.5; O2SAT 91–99
[2022-06-02 07:51] LABS: Abs Immature Grans 0.21 10^3/uL (0.0-0.06); Absolute Lymphocyte Count 0.55 10^3/uL (1.2-3.4); Absolute Monocyte Count 1.19 10^3/uL (0.1-0.8); Absolute Neutrophil Count 11.44 10^3/uL (1.2-6.7); Basophils % 0.1; HCT 35.2 % (36.0-46.0); HGB 10.5 g/dL (11.2-15.7); Immature Grans % 1.6; Lymphocytes % 4.1; MCH 26.1 pg (27.0-33.0); MCHC 29.8 % (32.0-36.0); MCV 87 fL (80-95); MPV 9.2 fL (8.0-11.0); Monocytes % 8.9; Neutrophils % 85.3; RBC 4.03 10^6/uL (3.93-5.22); RDW 15.8 % (11.7-14.6); RDW-SD 50.2 fL; WBC 13.41 10^3/uL (4.4-10.8)
[2022-06-02 08:01] LABS: Absolute Basophil Count 0.01 10^3/uL (0.0-0.2)
[2022-06-02 08:07] LABS: ALT 53 U/L (14-59); AST 20 U/L (15-37); Albumin 2.8 g/dL (3.4-5.0); Alkaline Phosphatase 90 U/L (46-116); Anion Gap 2.1 mmol/L (3-11); BUN 26 mg/dL (7-18); Bilirubin, Total 0.3 mg/dL (0.2-1.0); CO2 39.9 mmol/L (21.0-32.0); CREATININE 0.7 mg/dL (0.55-1.02); Calcium 8.7 mg/dL (8.5-10.1); Chloride 94 mmol/L (98-107); Estimated GFR 91.83 (mL/min/1.73m2); Glucose 92 mg/dL (74-106); Potassium 5.1 mmol/L (3.5-5.1); Sodium 136 mmol/L (136-145); Total Protein 6.9 g/dL (6.4-8.2)
[2022-06-02 08:22] LABS: D-Dimer 821 ng/mlFEU (<500)
[2022-06-02 08:31] LABS: Ferritin 165 ng/mL (8-252)
[2022-06-02 08:34] LABS: Diff Comment PLT Morph Reviewed; Platelet Count 690 10^3/uL (130-400); RBC Morphology Normal
[2022-06-02] MEDS: Digoxin 0.125 MG TAB PO (10:14)
[2022-06-02] MEDS: Esomeprazole 40 MG CAPCR PO (10:14)
[2022-06-02] MEDS: amLODIPine 10 MG TAB PO (10:14)
[2022-06-02] MEDS: acetaZOLAMIDE 250 MG TAB PO (10:17)
[2022-06-02] MEDS: Enoxaparin 40 MG/0.4 ML SYR SC (10:18)
[2022-06-02] MEDS: Acetaminophen 325 MG TAB 650 MG PO ×4 (10:18→22:34)
[2022-06-02] MEDS: Dexamethasone 10 MG/ML VIAL 6 MG IVP (10:19)
[2022-06-02] MEDS: Furosemide 40 MG TAB PO ×2 (10:19→16:50)
[2022-06-02] MEDS: Normal Saline Flush 10 ML SYR IVP ×2 (10:21→21:00)
[2022-06-02] MEDS: Ipratropium/Albuterol 4 GM 120 PUFF INH IH ×4 (10:26→21:00)
[2022-06-02] MEDS: Budesonide/Formoterol 160/4.5 6 GM 60 PUFF INH IH ×2 (10:26→21:00)
--- NOTE | 2022-06-02 10:59 | PGE_ITS ---
Date of Service Date of service: 06/02/22 Time of Service: 10:59 Assessment and Plan Assessment and plan (1) Acute exacerbation of chronic obstructive pulmonary disease (COPD): Status: Acute Assessment and plan: Continue supportive care with oxygen, Combivent inhaler, Symbicort, and the addition of Spiriva. Patient is now off antibiotics. No fevers, WBC is coming down. I will finish of her current course of Remdesivir. She will continue Diflucan for the Corinne in her sputum. I have ordered Fungitell and Aspergillus studies. (2) COVID-19: Status: Acute Assessment and plan: she has COVID infection but not COVID pneumonia (no ground glass changes on her CT scan). I stopped her baricitinib but will continue her Remdesivir (day #9); continue decadron (3) HTN (hypertension): Status: Chronic Assessment and plan: patient is back on her norvasc w/ well controlled BP. Qualifiers: Hypertension type: essential hypertension Qualified Code(s): I10 - Essential (primary) hypertension (4) CHF (congestive heart failure): Status: Chronic Assessment and plan: HFPEF. continue oral lasix at increased dose of 40 mg bid; monitor renal fu nction and electrolytes Qualifiers: Heart failure type: unspecified Qualified Code(s): I50.9 - Heart failure, unspecified (5) Abnormal chest CT: Status: Acute Assessment and plan: Abnormal infiltrate right upper lobe noted on chest CT. Infiltrate extends from right perihilar region out to the upper lobe pleural surface but not associated with hilar adenopathy or pleural effusion. Malignancy has not been excluded. Follow-up imaging recommended. I have asked our radiology to push the images to radiology at [facility] so I can get pulmonary telephone consult on her CT findings. In the interim, she has been started on Diflucan for the Corinne in her sputum culture. . She is off broad spectrum antibiotics as this is unlikely bacterial given she had no response to the azithromycin and ceftriaxone and her procalcitonin levels have been repeatedly negative. I will get fungitel and aspergillus studies but I suspect that this is likely a malignancy Subjective Subjective Interval history since last seen: Patient states she feels tired today but her dyspnea is somewhat better. She has been tolerating longer periods of being out of bed. She is coughing up some yellowish mucus. No fever or chills no chest pain other than when she coughs her heart she will feel a discomfort. She has no odynophagia no thrush in her mouth. Currently on Diflucan for Corinne. She continues on Remdesivir for COVID-19 and she is on Decadron. Exam Narrative Exam Narrative: Sitting up in her chair watching TV she is able to converse in complete paragraphs without getting dyspneic. No accessory respiratory muscle use. Lungs with some scattered end expiratory wheezes but overall much better airflow. Heart is regular to slightly tachycardic no murmur rub Abdomen soft nontender Legs with 1+ edema Objective Last Vital Signs Temp 36.5 C 06/02/22 00:43 Pulse 82 06/02/22 10:14 Resp 12 06/02/22 03:17 BP 135/67 06/02/22 00:43 Pulse Ox 96 06/02/22 00:43 Laboratory Results - last 24 hr 06/02/22 06/02/22 06/02/22 06:55 06:55 06:55 WBC 13.41 H RBC 4.03 Hgb 10.5 L Hct 35.2 L MCV 87 MCH 26.1 L MCHC 29.8 L RDW 15.8 H Plt Count 690 H MPV 9.2 Immature Gran % 1.6 Neutrophils % 85.3 Lymphocytes % 4.1 Monocytes % 8.9 Eosinophils % 0.0 Basophils % 0.1 Nucleated RBC % 0.0 Absolute Neutrophils 11.44 H Absolute Lymphocytes 0.55 L Absolute Monocytes 1.19 H Absolute Eosinophils 0.00 Absolute Basophils 0.01 RBC Morphology Normal D-Dimer 821 H Sodium 136 Potassium 5.1 Chloride 94 L Carbon Dioxide 39.9 H Anion Gap 2.1 L BUN 26 H Creatinine 0.7 Est GFR (CKD-EPI 2020) 91.83 Glucose 92 Calcium 8.7 Ferritin 165 Total Bilirubin 0.3 AST 20 ALT 53 Alkaline Phosphatase 90 C-Reactive Protein 0.30 Total Protein 6.9 Albumin 2.8 L
[2022-06-02] MEDS: REMDESIVIR 100 MG in Normal Saline 250 ML 250 MG IVPB (20:59)
[2022-06-02] MEDS: Fluconazole 100 MG TAB 200 MG PO (21:00)
[2022-06-02] MEDS: guaiFENesin 600 MG TABCR PO (21:00)
[2022-06-03 03:06] VITALS: BP 130/74; PULSE 75; RESP 14; TEMP 36.2; O2SAT 97
[2022-06-03 07:34] LABS: Abs Immature Grans 0.11 10^3/uL (0.0-0.06); Absolute Lymphocyte Count 0.45 10^3/uL (1.2-3.4); Absolute Monocyte Count 1.11 10^3/uL (0.1-0.8); Absolute Neutrophil Count 11.49 10^3/uL (1.2-6.7); Basophils % 0.2; HCT 36.3 % (36.0-46.0); HGB 11.1 g/dL (11.2-15.7); Immature Grans % 0.8; Lymphocytes % 3.4; MCH 26.1 pg (27.0-33.0); MCHC 30.6 % (32.0-36.0); MCV 85 fL (80-95); MPV 9.5 fL (8.0-11.0); Monocytes % 8.4; Neutrophils % 87.2; Platelet Count 604 10^3/uL (130-400); RBC 4.26 10^6/uL (3.93-5.22); RDW-SD 49.6 fL; WBC 13.18 10^3/uL (4.4-10.8)
[2022-06-03 07:37] LABS: Absolute Basophil Count 0.03 10^3/uL (0.0-0.2)
[2022-06-03 07:50] LABS: ALT 51 U/L (14-59); AST 22 U/L (15-37); Alkaline Phosphatase 90 U/L (46-116); Anion Gap 1.3 mmol/L (3-11); BUN 35 mg/dL (7-18); Bilirubin, Total 0.3 mg/dL (0.2-1.0); CO2 36.7 mmol/L (21.0-32.0); CREATININE 0.9 mg/dL (0.55-1.02); Calcium 9.1 mg/dL (8.5-10.1); Chloride 94 mmol/L (98-107); Estimated GFR 67.92 (mL/min/1.73m2); Glucose 97 mg/dL (74-106); Potassium 5.4 mmol/L (3.5-5.1); Sodium 132 mmol/L (136-145); Total Protein 7.3 g/dL (6.4-8.2)
[2022-06-03 07:55] LABS: C-Reactive Protein 0.34 mg/dL (0.0-0.3); NT-proBNP 223 pg/mL (<300)
[2022-06-03 08:09] LABS: D-Dimer 771 ng/mlFEU (<500)
[2022-06-03 08:19] LABS: Ferritin 214 ng/mL (8-252)
[2022-06-03] MEDS: Acetaminophen 325 MG TAB 650 MG PO ×4 (08:22→20:09)
[2022-06-03 08:23] VITALS: PULSE 88
[2022-06-03] MEDS: amLODIPine 10 MG TAB PO (08:23)
[2022-06-03] MEDS: guaiFENesin 600 MG TABCR PO ×2 (08:23→20:10)
[2022-06-03] MEDS: Digoxin 0.125 MG TAB PO (08:23)
[2022-06-03] MEDS: acetaZOLAMIDE 250 MG TAB PO (08:23)
[2022-06-03] MEDS: Furosemide 40 MG TAB PO ×2 (08:23→16:02)
[2022-06-03] MEDS: Esomeprazole 40 MG CAPCR PO (08:23)
[2022-06-03] MEDS: Ipratropium/Albuterol 4 GM 120 PUFF INH IH ×4 (08:24→20:10)
[2022-06-03] MEDS: Budesonide/Formoterol 160/4.5 6 GM 60 PUFF INH IH ×2 (08:24→20:10)
[2022-06-03] MEDS: Enoxaparin 40 MG/0.4 ML SYR SC (08:24)
[2022-06-03] MEDS: Dexamethasone 10 MG/ML VIAL 6 MG IVP (08:24)
[2022-06-03] MEDS: Normal Saline Flush 10 ML SYR IVP (08:24)
--- NOTE | 2022-06-03 11:54 | PGE_ITS ---
Date of Service Date of service: 06/03/22 Time of Service: 11:54 Assessment and Plan Assessment and plan (1) Acute exacerbation of chronic obstructive pulmonary disease (COPD): Status: Acute Assessment and plan: Continue supportive care with oxygen, Combivent inhaler, Symbicort, and the addition of Spiriva. Patient is now off antibiotics. No fevers, WBC is coming down. I will finish of her current course of Remdesivir today will be day 10 . She will continue Diflucan for the Corinne in her sputum. I have ordered Fungitell and Aspergillus studies which are still pending (2) COVID-19: Status: Acute Assessment and plan: she has COVID infection but not COVID pneumonia (no ground glass changes on her CT scan). I stopped her baricitinib but will continue her Remdesivir (day #07/09); continue decadron (3) HTN (hypertension): Status: Chronic Assessment and plan: patient is back on her norvasc w/ well controlled BP. Qualifiers: Hypertension type: essential hypertension Qualified Code(s): I10 - Essential (primary) hypertension (4) CHF (congestive heart failure): Status: Chronic Assessment and plan: HFPEF. continue oral lasix at increased dose of 40 mg bid; monitor renal function and electrolytes Qualifiers: Heart failure type: unspecified Qualified Code(s): I50.9 - Heart failure, unspecified (5) Abnormal chest CT: Status: Acute Assessment and plan: Abnormal infiltrate right upper lobe noted on chest CT. Infiltrate extends from right perihilar region out to the upper lobe pleural surface but not associated with hilar adenopathy or pleural effusion. Malignancy has not been excluded. Follow-up imaging recommended. I have not had a chance to review the images with pulmonary services [facility]. I think review of her CT can wait until our in-house washroom attendant is back next week. Patient is indicated to me that even if this is a cancer she has no intention of pursuing any treatment for cancer including any radiation or chemotherapy. Subjective Subjective Patient reports: no new complaints and feels better Interval history since last seen: Less dyspnea, cough productive of clear to whitish mucus. No fevers. SPO2 has been running from 95 to 99% on 4 L/min per nasal cannula. With activity her saturation will go as low as 91%. Nursing report is that the patient has been refused to wear her BiPAP at night she cannot stand the full facemask. At home she has a nasal CPAP or BiPAP unit and she says if she could wear the nasal prong she would wear the CPAP Exam Narrative Exam Narrative: Patient set up her chair alert oriented person place time circumstance watching TV in no respiratory distress able to talk in complete paragraphs. Lungs with improved airflow few end expiratory wheezes no rhonchi no rales Heart is regular but tachycardic with occasional ectopic beats Abdomen soft and nontender Legs with 1+ edema Objective Last Vital Signs Temp 36.2 C L 06/03/22 03:06 Pulse 88 06/03/22 08:23 Resp 14 06/03/22 03:06 BP 130/74 06/03/22 03:06 Pulse Ox 97 06/03/22 03:06 Laboratory Results - last 24 hr 06/03/22 06/03/22 06/03/22 07:15 07:15 07:15 WBC 13.18 H RBC 4.26 Hgb 11.1 L Hct 36.3 MCV 85 MCH 26.1 L MCHC 30.6 L RDW 16.0 H Plt Count 604 H MPV 9.5 Immature Gran % 0.8 Neutrophils % 87.2 Lymphocytes % 3.4 Monocytes % 8.4 Eosinophils % 0.0 Basophils % 0.2 Nucleated RBC % 0.0 Absolute Neutrophils 11.49 H Absolute Lymphocytes 0.45 L Absolute Monocytes 1.11 H Absolute Eosinophils 0.00 Absolute Basophils 0.03 D-Dimer Sodium 132 L Potassium 5.4 H Chloride 94 L Carbon Dioxide 36.7 H Anion Gap 1.3 L BUN 35 H Creatinine 0.9 Est GFR (CKD-EPI 2020) 67.92 Glucose 97 Calcium 9.1 Ferritin 214 Total Bilirubin 0.3 AST 22 ALT 51 Alkaline Phosphatase 90 C-Reactive Protein 0.34 H NT-Pro-B Natriuret Pep 223 Total Protein 7.3 Albumin 3.0 L 06/03/22 07:15 WBC RBC Hgb Hct MCV MCH MCHC RDW Plt Count MPV Immature Gran % Neutrophils % Lymphocytes % Monocytes % Eosinophils % Basophils % Nucleated RBC % Absolute Neutrophils Absolute Lymphocytes Absolute Monocytes Absolute Eosinophils Absolute Basophils D-Dimer 771 H Sodium Potassium Chloride Carbon Dioxide Anion Gap BUN Creatinine Est GFR (CKD-EPI 2020) Glucose Calcium Ferritin Total Bilirubin AST ALT Alkaline Phosphatase C-Reactive Protein NT-Pro-B Natriuret Pep Total Protein Albumin
[2022-06-03] MEDS: Milk of Magnesia 30 ML CUP PO (14:08)
[2022-06-03 16:07] VITALS: BP 122/67; PULSE 92; RESP 22; TEMP 36.4; O2SAT 96
[2022-06-03] MEDS: Fluconazole 100 MG TAB 200 MG PO (20:09)
[2022-06-03] MEDS: REMDESIVIR 100 MG in Normal Saline 250 ML 250 MG IVPB (20:09)
[2022-06-03 21:16] VITALS: BP 101/63; PULSE 87; RESP 16; TEMP 36.3; O2SAT 97
[2022-06-04 07:24] LABS: Anion Gap 2.5 mmol/L (3-11); BUN 36 mg/dL (7-18); CO2 36.5 mmol/L (21.0-32.0); CREATININE 1.1 mg/dL (0.55-1.02); Calcium 9.1 mg/dL (8.5-10.1); Chloride 93 mmol/L (98-107); Estimated GFR 53.39 (mL/min/1.73m2); Glucose 101 mg/dL (74-106); Potassium 5.1 mmol/L (3.5-5.1); Sodium 132 mmol/L (136-145)
[2022-06-04] MEDS: Ipratropium/Albuterol 4 GM 120 PUFF INH IH ×4 (07:42→20:20)
[2022-06-04] MEDS: Budesonide/Formoterol 160/4.5 6 GM 60 PUFF INH IH ×2 (07:42→20:20)
--- NOTE | 2022-06-04 07:44 | RESPIRATORY ---
Pt is refusing to take Spiriva inhaler. Pt states that it makes her head feel weird.
[2022-06-04 07:47] VITALS: RESP 12
[2022-06-04 07:53] VITALS: O2SAT 88
[2022-06-04 08:41] VITALS: PULSE 98
[2022-06-04] MEDS: amLODIPine 10 MG TAB PO (08:41)
[2022-06-04] MEDS: Acetaminophen 325 MG TAB 650 MG PO ×4 (08:41→20:19)
[2022-06-04] MEDS: guaiFENesin 600 MG TABCR PO ×2 (08:41→20:19)
[2022-06-04] MEDS: Furosemide 40 MG TAB PO ×2 (08:41→16:57)
[2022-06-04] MEDS: Esomeprazole 40 MG CAPCR PO (08:41)
[2022-06-04] MEDS: Digoxin 0.125 MG TAB PO (08:41)
[2022-06-04] MEDS: Enoxaparin 40 MG/0.4 ML SYR SC (08:41)
[2022-06-04] MEDS: Normal Saline Flush 10 ML SYR IVP (08:42)
[2022-06-04] MEDS: Dexamethasone 10 MG/ML VIAL 6 MG IVP (08:42)
[2022-06-04] MEDS: acetaZOLAMIDE 250 MG TAB PO (08:42)
[2022-06-04 08:44] VITALS: BP 146/92; PULSE 98; RESP 20; TEMP 35.9; O2SAT 88
[2022-06-04 10:32] LABS: Source Nasal/Nares
[2022-06-04 11:14] LABS: COVID-19 PCR Negative (Negative)
[2022-06-04 15:32] VITALS: BP 128/65; PULSE 89; RESP 23; TEMP 36.5; O2SAT 97
--- NOTE | 2022-06-04 16:43 | W.PM.PROGNOT ---
Date of Service Date of service: 06/04/22 Time of Service: 16:57 Assessment and Plan Assessment and plan (1) Acute exacerbation of chronic obstructive pulmonary disease (COPD): Status: Acute Assessment and plan: Improving on current regimen. O2 requirement down to 2L of O2 by NC. Continue Combivent, Symbicort, and Spiriva. There is still concern re possible fungal pneumonia - await fungitell/aspergillus studies. (2) COVID-19: Status: Acute Assessment and plan: Completed 10 days of remdesivir and baricitinib. better. COVID PCR negative today. Will recehck again tomorrow - if negative, can d/c precautions. Still on dexamethasone. (3) HTN (hypertension): Status: Chronic Assessment and plan: On norvasc. However, reports BLE edema. Consider alternative therapy. Qualifiers: Hypertension type: essential hypertension Qualified Code(s): I10 - Essential (primary) hypertension (4) CHF (congestive heart failure): Status: Chronic Assessment and plan: HFPEF. Continue furosemide and acetazolamide. Qualifiers: Heart failure type: unspecified Qualified Code(s): I50.9 - Heart failure, unspecified (5) Abnormal chest CT: Status: Acute Assessment and plan: Possible malignancy RUL. Will obtain a pulmonology consult. (6) DVT prophylaxis: Status: Acute Assessment and plan: SC enoxaparin (7) Discharge planning issues: Status: Acute Assessment and plan: Full code C/s PT. Anticipate discharge home in 24-48 hrs. Subjective Subjective Interval history since last seen: Feels better. Clear sputum. Feet are swollen and sore. Tired. Elevated your legs. No CP other than gas/indigestion (not right now). Leg swelling is an ongoing problem. Wearing TEDs. Elevating legs when can. Agrees to physical therapy. Exam Narrative Exam Narrative: Patient was evaluated over the phone today due to her improvement and diagnosis of COVID-19. She did sound hoarse. She is not coughing on the phone. A&Ox3, no evidence of respiratory distress. Objective Last Vital Signs Temp 36.5 C 06/04/22 15:32 Pulse 89 06/04/22 15:32 Resp 23 06/04/22 15:32 BP 128/65 06/04/22 15:32 Pulse Ox 97 09/05/22 15:32 Laboratory Results - last 24 hr 06/04/22 06/04/22 06:30 10:15 Sodium 132 L Potassium 5.1 Chloride 93 L Carbon Dioxide 36.5 H Anion Gap 2.5 L BUN 36 H Creatinine 1.1 H Est GFR (CKD-EPI 2020) 53.39 Glucose 101 Calcium 9.1 COVID-19 Source Nasal/Nares SARS-CoV-2 (PCR) Negative
[2022-06-04] MEDS: Fluconazole 100 MG TAB 200 MG PO (20:19)
[2022-06-04 23:13] VITALS: BP 127/67; PULSE 81; RESP 12; TEMP 36.2; O2SAT 93
[2022-06-05] MEDS: Acetaminophen 325 MG TAB 650 MG PO ×5 (01:29→20:45)
[2022-06-05 06:46] LABS: Abs Immature Grans 0.13 10^3/uL (0.0-0.06); Absolute Basophil Count 0.01 10^3/uL (0.0-0.2); Basophils % 0.1; HCT 35.7 % (36.0-46.0); Lymphocytes % 3.1; MCHC 30.8 % (32.0-36.0); MCV 84 fL (80-95); MPV 9.6 fL (8.0-11.0); Monocytes % 9.6; Neutrophils % 86.2; Platelet Count 573 10^3/uL (130-400); RBC 4.23 10^6/uL (3.93-5.22); RDW 15.9 % (11.7-14.6); WBC 13.06 10^3/uL (4.4-10.8)
[2022-06-05 06:54] LABS: Absolute Monocyte Count 1.25 10^3/uL (0.1-0.8); Absolute Neutrophil Count 11.26 10^3/uL (1.2-6.7)
[2022-06-05 07:04] LABS: ALT 69 U/L (14-59); AST 31 U/L (15-37); Albumin 3.1 g/dL (3.4-5.0); Alkaline Phosphatase 86 U/L (46-116); Anion Gap 3.2 mmol/L (3-11); BUN 40 mg/dL (7-18); Bilirubin, Direct 0.1 mg/dL (0.0-0.2); Bilirubin, Total 0.4 mg/dL (0.2-1.0); C-Reactive Protein 0.08 mg/dL (0.0-0.3); CO2 33.8 mmol/L (21.0-32.0); Calcium 8.6 mg/dL (8.5-10.1); Chloride 94 mmol/L (98-107); Estimated GFR 59.86 (mL/min/1.73m2); Glucose 106 mg/dL (74-106); Magnesium 2.4 mg/dL (1.8-2.4); Potassium 4.5 mmol/L (3.5-5.1); Sodium 131 mmol/L (136-145); Total Protein 7.1 g/dL (6.4-8.2)
[2022-06-05 07:23] VITALS: BP 127/85; PULSE 85; RESP 20; TEMP 36.5; O2SAT 90
[2022-06-05] MEDS: Normal Saline Flush 10 ML SYR IVP ×3 (07:25→20:53)
[2022-06-05] MEDS: Enoxaparin 40 MG/0.4 ML SYR SC (07:25)
[2022-06-05 07:26] VITALS: PULSE 85
[2022-06-05] MEDS: amLODIPine 10 MG TAB PO (07:26)
[2022-06-05] MEDS: Esomeprazole 40 MG CAPCR PO (07:26)
[2022-06-05] MEDS: Dexamethasone 10 MG/ML VIAL 6 MG IVP (07:26)
[2022-06-05] MEDS: guaiFENesin 600 MG TABCR PO ×2 (07:26→20:44)
[2022-06-05] MEDS: acetaZOLAMIDE 250 MG TAB PO (07:26)
[2022-06-05] MEDS: Furosemide 40 MG TAB PO ×2 (07:26→15:13)
[2022-06-05] MEDS: Digoxin 0.125 MG TAB PO (07:26)
[2022-06-05 07:32] LABS: Ferritin 296 ng/mL (8-252)
[2022-06-05 07:54] VITALS: RESP 12
[2022-06-05] MEDS: Budesonide/Formoterol 160/4.5 6 GM 60 PUFF INH IH ×2 (07:54→20:45)
[2022-06-05] MEDS: Ipratropium/Albuterol 4 GM 120 PUFF INH IH ×4 (07:54→20:46)
[2022-06-05 07:56] VITALS: PULSE 108; PULSE 109; PULSE 88; PULSE 91; RESP 17; RESP 20; RESP 28; RESP 30; O2SAT 83; O2SAT 89; O2SAT 90
--- NOTE | 2022-06-05 09:23 | PDOC.CMPRO ---
- If Service Date Differs Date of service: 06/05/22 Time of Service: 09:24 Care Management Progress Note S/O: Jackie continues to be closely monitored. She met with Palliative and then with Pulmonary today. Jackie may discharge tomorrow with [address] O2 tomorrow if medically ready with [facility] RN/PT if indicated. A: Jackie is a 71 year old female admitted to [facility] on 05/25/22 with COPD exacerbation, COVID pneumonia. P: Anticipate Jackie will return home once medically cleared. She will transport home via private vehicle by family. She will follow up with her PCP and discharge plan of care. CM will continue to follow.
--- NOTE | 2022-06-05 09:51 | PCPN_ITS ---
Date of service: 06/05/22 Time of Service: 07:00 Assessment and Plan Assessment and plan (1) COVID-19: Status: Acute Assessment and plan: Jackie is doing very well respiratory ferris. She is back at her baseline. She will be completing her IV therapy today. She is ready to go home. She does have another COVID test scheduled (2) Advance care planning: Status: Acute Assessment and plan: I have spoken on 3 occasions regarding her CODE STATUS. Initially she was a DNR/DNI, on this admission she said leave it up to my grandson and my son so therefore she was a full code, and now she is very very explicit she does not want CPR. She is a DNR/DNI. 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 She does not want CPR. She felt that it was confusing when she first came in and wanted to clear this up. I have relayed this information to Dr. Chino (3) Dysuria: Status: Acute Assessment and plan: I was told by nursing that there was a negative urine test I do not see this in the system . I may be a not be looking in the right spot. If there has not been a urine test done in the last 24 hours I would recommend that she have this done. Subjective Subjective Interval history since last seen: Has gone through a lot over the last week. She has been receiving different medications, physical therapy, oxygen etc. Overall she is feeling much much better today. She is anxious to go home. She knows that her son and grandson will take good care of her. She has no hesitation about going home. We did talk again about her CODE STATUS and she was very clear that she was a DNR/DNI. 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 When she is home she would very much like palliative care to visit her She has had some burning with urination. UA was negative per nursing. Exam Narrative Exam Narrative: Sweet woman who was talking in complete paragraphs. She was very exuberant in her speech. She showed no signs of shortness of breath. Her lungs still has some wheezes but there was aeration throughout. Her heart was regular. I did do a exam and I did not see any redness in the area. There was no discharge. Objective Last Vital Signs Temp 97.7 F 06/05/22 07:23 Pulse 85 06/05/22 07:26 Resp 20 06/05/22 07:23 BP 127/85 06/05/22 07:23 Pulse Ox 90 L 06/05/22 07:23 Laboratory Results - last 24 hr 06/04/22 06/05/22 06/05/22 10:15 06:30 06:30 WBC 13.06 H RBC 4.23 Hgb 11.0 L Hct 35.7 L MCV 84 MCH 26.0 L MCHC 30.8 L RDW 15.9 H Plt Count 573 H MPV 9.6 Immature Gran % 1.0 Neutrophils % 86.2 Lymphocytes % 3.1 Monocytes % 9.6 Eosinophils % 0.0 Basophils % 0.1 Nucleated RBC % 0.0 Absolute Neutrophils 11.26 H Absolute Lymphocytes 0.40 L Absolute Monocytes 1.25 H Absolute Eosinophils 0.00 Absolute Basophils 0.01 Sodium 131 L Potassium 4.5 Chloride 94 L Carbon Dioxide 33.8 H Anion Gap 3.2 BUN 40 H Creatinine 1.0 Est GFR (CKD-EPI 2020) 59.86 Glucose 106 Calcium 8.6 Magnesium 2.4 Ferritin 296 H Total Bilirubin 0.4 Conjugated Bilirubin 0.1 AST 31 ALT 69 H Alkaline Phosphatase 86 C-Reactive Protein 0.08 Total Protein 7.1 Albumin 3.1 L COVID-19 Source Nasal/Nares SARS-CoV-2 (PCR) Negative
[2022-06-05 10:25] LABS: Source Nasal/Nares
--- NOTE | 2022-06-05 10:52 | PT.INIE ---
Date of service: 06/05/22 Time of Service: 10:52 PT Notes Visit Reasons: COPD Exacerbation,COVID pneumonia,Respitory Failur Inpatient Physical Therapy Initial Evaluation Date: 06/05/2022 Referring Doctor:Angelina Chino MD PT Orders: PT CONSULT: Eval and treat Precautions: Fall.? Standard.? Activity as tolerated. Patient Profile/Admitting Diagnosis: Patient is a 71-year-old female who presented to the ED on 05/25/2022 due to severe respiratory distress.? Patient was diagnosed acute on chronic obstructive pulmonary disease, COVID-19 infection, hypertension, congestive heart failure, and abnormal chest CT.? PMHX: All Active Problems?(Updated 05/25/22 @ 23:25 by Allan Law) Pneumonia due to COVID-19 virus (Acute) CHF (congestive heart failure) (Chronic) Cervical arthritis with myelopathy (Acute) Hypomagnesemia (Acute) Acute exacerbation of chronic obstructive pulmonary disease (COPD) (Acute) Arthritis (Acute 02/10/13) Chronic obstructive lung disease (Acute) h/o tobacco use, quit 2008 Osteoporosis (Acute 01/14/08) Tachycardia (Chronic) HTN (hypertension) (Chronic) GERD (gastroesophageal reflux disease) (Chronic) Medical History?(Updated 05/25/22 @ 23:25 by Allan Law) Acute on chronic diastolic CHF (congestive heart failure) Acute on chronic respiratory failure with hypoxia and hypercapnia CAP (community acquired pneumonia) COVID-19 -associated with COPD exacerbation GERD (gastroesophageal reflux disease) HTN (hypertension) Parotid mass Resolved after 3 months without intervention Tobacco dependence due to cigarettes Quit smoking when she was 59 years old Surgical History? 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 She is independent with all aspects of ADLs with no assistive ambulatory device nor adaptive equipment.? She still drives.? She states she has 1 step to enter the house which he shares with her son and grandson. Current Functional Limitations: Patient has poor activity tolerance which has limited her ability to participate in all aspects of ADLs Equipment Owned/DME: [facility] Subjective: She is agreeable to a PT consult and treatment today. Feels a lot better but still requires oxygen when she moves. Okay with no oxygen at rest with room air oxygen saturation of 90%. Feels more stable using FWW with walking. Objective: General Observation: Seated on bedside chair. B TEDS in legs. Mental Status: Alert and oriented x3 Pain: 0/10 Vital Signs: Required 2 L of oxygen supplementation via NC for in-room ambulation to stay above 89% ROM: Right Upper Extremity: ? Shoulder Flexion WFL. Shoulder abduction WFL. Elbow flexion WFL. Wrist flexion WFL. Functional opening and closing of hand WFL. Left Upper Extremity:? Shoulder Flexion WFL. Shoulder abduction WFL. Elbow flexion WFL. Wrist flexion WFL. Functional opening and closing of hand WFL. Right Lower Extremity: Hip flexion WFL. Hip abduction WFL. Knee flexion WFL. Ankle dorsiflexion WFL. Ankle plantarflexion WFL. Left Lower Extremity: Hip flexion WFL. Hip abduction WFL. Knee flexion WFL. Ankle dorsiflexion WFL. Ankle plantarflexion WFL. STRENGTH: Right Upper Extremity: Shoulder flexors 4-/5. Shoulder abductors 4-/5. Elbow flexors 4/5. Elbow extensors 4/5. Reliability Technologist strong. Left Upper Extremity: Shoulder flexors 4-/5. Shoulder abductors 4-/5. Elbow flexors 4/5. Elbow extensors 4/5. Reliability Technologist strong. Right Lower Extremity: Hip flexors 4-/5. Hip abductors 4-/5. Knee flexors 4/5. Knee extensors 4/5. Ankle dorsiflexors 5/5. Ankle plantarflexors 5/5. Right Lower Extremity:Hip flexors 4-/5. Hip abductors 4-/5. Knee flexors 4/5. Knee extensors 4/5. Ankle dorsiflexors 5/5. Ankle plantarflexors 5/5. Sensation: Intact to B UE/LE as to pain and pressure. Sit to stand stand by assist with FWW Stand to sit stand by assist with FWW Bed to chair stand by assist with FWW Chair to bed stand by assist with FWW Gait: 30 feet using FWW with 2L of oxygen via NC saturating at 90-92%, stand by assist provided. Minimal shortness of breath. No loss of balance. No path deviation. Balance: Static Sitting: Good Dynamic Sitting: Good Static Standing: Fair Dynamic Standing: Fair Special Tests: Mobility Limitations Standardized Measure [facility] AM-PAC 6 clicks basic Mobility Inpatient Short Form: Raw Score: 20 CMS score: 36% deficit Informed Consent/Education:? Patient instructed in purpose of PT consult and plan of care.? She was instructed on correct technique for pursed lip breathing, activity pacing, and energy conservation techniques. Assessment:? Patient is a 71-year-old female who presented to the ED on 05/25/2022 due to severe respiratory distress.? Patient was diagnosed acute on chronic obstructive pulmonary disease, COVID-19 infection, hypertension, congestive heart failure, and abnormal chest CT.? Patient presents with clinical signs and symptoms consistent with current/admitting diagnoses that have resulted to mobility limitations, gait instability, generalized weakness, and impairment of motor control as demonstrated by the following impairment level findings: 1.? Decreased strength to B LE major muscle groups 2.? Impaired sitting/standing balance 3.? Impaired activity tolerance 4. Need for oxygen supplementation during mobility performance Impairments are contributing to the following functional limitations: 3.? Inability to safely ambulate without assistive device 4.? Increase completion time for mobility ADL performance 5.? Increased fall risk 6.? Inability to negotiate steps alone safely Patient is assessed as a Moderate 72728? complexity based on the following: History: 71-year-old female with diagnosis of acute respiratory failure, acute on chronic COPD, acute on chronic CHF, hypomagnesemia who had been independent with all aspects of ADLs prior to admission Examination: Underlying impairments and functional deficits as noted above Presentation: Evolving Decision Makin moderate complexity Goals: Goals X1 week 1. Supine-Sit independent 2. Sit-Supine independent 3. Sit-Stand independent 4. Stand-Sit independent 5. Bed-Chair independent 6. Chair-Bed independent 7. Independent gait on level surface without use of assistive device for at least 100 feet without report of pain nor dyspnea 8. Good static and dynamic standing balance/tolerance Plan of Care/Treatment Plan: 1x/day, 7 days/week x 1 week. Plan of care has been reviewed with the CYLINDER WORKER providing the service under Physical Therapy direction. Initiate Physical Therapy intervention for strengthening, bed mobility, transfers, gait, stairs, balance training, use of assistive device. DISCHARGE RECOMMENDATIONS: [] Home with no services [] [X] Home with services. Home when medically cleared by hospitalist. Patient will benefit from home health PT services in order to progress mobility level using least restrictive assistive ambulatory device, assess home safety, identify additional equipment needs, and establish a functional maintenance program that will increase ability of patient to remain at home. Will require FWW at home to maximize independence. [] Home with outpatient PT [] [] SNF for continued rehabilitation [] [] [facility] [] [] SNF versus LTC based on ability to participate and progress [] TREATMENT CODE/TIME: 33405 for 23 minutes beginning at 10:52 AM. Thank you for the opportunity to participate in the care of this patient. Susana Lainez PT, DPT, CLT [facility] [place], [place]
[2022-06-05 11:08] LABS: COVID-19 PCR Negative (Negative)
[2022-06-05 12:00] LABS: Bilirubin Negative (Negative); Blood Negative (Negative); Clarity Clear (Clear); Glucose Negative (Negative); Ketones Negative (Negative); Leukocyte Esterase Trace (Negative); Nitrite Negative (Negative); Specific Gravity 1.015 (1.005-1.025); Urobilinogen 0.2 EU/dL (Up TO 0.2); pH 6.5 (5-8)
[2022-06-05 12:07] LABS: RBC Negative HPF (0-2); WBC 0-2 HPF (0-5)
[2022-06-05 12:08] LABS: Bacteria Rare HPF (Negative); C & S Indicated? Yes; Casts Negative LPF (Negative); Crystals Negative HPF (Negative); Epithelial Cells Rare HPF (Negative); Mucus Negative (Negative)
--- NOTE | 2022-06-05 13:59 | PT.INTREAT ---
Date of service: 06/05/22 Time of Service: 13:59 PT Notes Visit Reasons: COPD Exacerbation,COVID pneumonia,Respitory Failur Inpatient Physical Therapy Treatment Note Date: 06/05/2022 Precautions: Fall.? Standard.? Activity as tolerated. Off of COVID precautions as of 06/05/2022. Subjective: Expressed how fatigued she as but is still willing to try out her walking distance in the hallway. Objective: General Observation: Seated on bedside chair.? B TEDS in legs. Mental Status: Alert and oriented x3 Pain: 0/10 Vital Signs: Required 2 L of oxygen supplementation via NC for in-room ambulation to stay above 89% Sit to stand stand by assist with FWW Stand to sit stand by assist with FWW Bed to chair stand by assist with FWW Chair to bed stand by assist with FWW Gait: 80 feet using FWW with 2L of oxygen via NC saturating at 86-92%,? stand by assist with wheelchair follow provided.? Minimal to moderate shortness of breath.? No loss of balance.? No path deviation. Balance: Static Sitting: Good Dynamic Sitting: Good Static Standing: Fair Dynamic Standing: Fair Assessment:? Now off of COVID-19 precautions. Tolerated session well needing 2-3 short standing rests due to shortness of breath and fatigue. Contnue functional mobility training, sterngth, and balance training to regain PLOF. DISCHARGE RECOMMENDATIONS: [] ? Home with no services [] [X] ? Home with services.? Home when medically cleared by hospitalist.? Patient will benefit from home health PT services in order to progress mobility level using least restrictive assistive ambulatory device, assess home safety, identify additional equipment needs, and establish a functional maintenance program that will increase ability of patient to remain at home.? Will require FWW at home to maximize independence. [] ? Home with outpatient PT [] [] ? SNF for continued rehabilitation [] [] ? [facility] [] [] ? SNF versus LTC based on ability to participate and progress [] TREATMENT CODE/TIME: 90409 x 20 minutes beginning at 13:59 PM.
[2022-06-05 16:26] VITALS: BP 121/66; PULSE 91; RESP 22; TEMP 36.7; O2SAT 92
--- NOTE | 2022-06-05 17:39 | W.PM.PROGNOT ---
Date of Service Date of service: 06/05/22 Time of Service: 17:00 Assessment and Plan Assessment and plan (1) Acute exacerbation of chronic obstructive pulmonary disease (COPD): Status: Acute Assessment and plan: Improving on current regimen. O2 requirement down to RA at rest, 4L on activity. Seen by pulmonlogy today: refuses workup of lung mass and follow up. Continue Combivent, Symbicort, and Spiriva. (2) COVID-19: Status: Acute Assessment and plan: Completed 10 days of remdesivir and baricitinib. better. COVID PCR negative again today - taken off of precautions. Still on dexamethasone - converted to PO. (3) HTN (hypertension): Status: Chronic Assessment and plan: On norvasc. However, reports BLE edema. Consider alternative therapy. Qualifiers: Hypertension type: essential hypertension Qualified Code(s): I10 - Essential (primary) hypertension (4) CHF (congestive heart failure): Status: Chronic Assessment and plan: HFPEF. Continue furosemide and acetazolamide. Qualifiers: Heart failure type: unspecified Qualified Code(s): I50.9 - Heart failure, unspecified (5) Abnormal chest CT: Status: Acute Assessment and plan: Possible malignancy RUL. Refuses workup; seen by pulmonlogy. Dr Elliott is communicating with PCP as to the follow up that the patient would need at PCP's office for this. (6) DVT prophylaxis: Status: Acute Assessment and plan: SC enoxaparin (7) Discharge planning issues: Status: Acute Assessment and plan: Full code PT on board. O2 orders would be new. Anticipate discharge home in 24-48 hrs. Subjective Subjective Interval history since last seen: Ms Myers states she is tired today. She is off of COVID precautions since her 2nd COVID PCR in 24 hrs now came back negative. Denies dizziness, chest pain, endorses shortness of breath, denies nausea. Required 4L of O2 to saturate 89% Nursing reports yeasty vaginal discharge. Exam Narrative Exam Narrative: General: Pleasant elderly female who appears to be in good spirits, wearing NC at the time of my visit HEENT: EOMI, MMM Heart: RRR, no m/r/g Lungs: rales at B bases Abdomen: soft,nontender, nondistended Extremities: +1 edema BLEs, symmetric Objective Last Vital Signs Temp 36.7 C 06/05/22 16:26 Pulse 91 H 06/05/22 16:26 Resp 22 06/05/22 16:26 BP 121/66 06/05/22 16:26 Pulse Ox 92 06/05/22 16:26 Laboratory Results - last 24 hr 06/05/22 06/05/22 06/05/22 06:30 06:30 09:16 WBC 13.06 H RBC 4.23 Hgb 11.0 L Hct 35.7 L MCV 84 MCH 26.0 L MCHC 30.8 L RDW 15.9 H Plt Count 573 H MPV 9.6 Immature Gran % 1.0 Neutrophils % 86.2 Lymphocytes % 3.1 Monocytes % 9.6 Eosinophils % 0.0 Basophils % 0.1 Nucleated RBC % 0.0 Absolute Neutrophils 11.26 H Absolute Lymphocytes 0.40 L Absolute Monocytes 1.25 H Absolute Eosinophils 0.00 Absolute Basophils 0.01 Sodium 131 L Potassium 4.5 Chloride 94 L Carbon Dioxide 33.8 H Anion Gap 3.2 BUN 40 H Creatinine 1.0 Est GFR (CKD-EPI 2020) 59.86 Glucose 106 Calcium 8.6 Magnesium 2.4 Ferritin 296 H Total Bilirubin 0.4 Conjugated Bilirubin 0.1 AST 31 ALT 69 H Alkaline Phosphatase 86 C-Reactive Protein 0.08 Total Protein 7.1 Albumin 3.1 L Urine Color Urine Clarity Urine pH Ur Specific [place] Urine Protein Urine Ketones Urine Blood Urine Nitrite Urine Bilirubin Urine Urobilinogen Ur Leukocyte Esterase Urine RBC Urine WBC Ur Epithelial Cells Urine Crystals Urine Bacteria Urine Casts Urine Mucus Ur Culture Indicated? Urine Glucose COVID-19 Source Nasal/Nares SARS-CoV-2 (PCR) Negative 06/05/22 11:44 WBC RBC Hgb Hct MCV MCH MCHC RDW Plt Count MPV Immature Gran % Neutrophils % Lymphocytes % Monocytes % Eosinophils % Basophils % Nucleated RBC % Absolute Neutrophils Absolute Lymphocytes Absolute Monocytes Absolute Eosinophils Absolute Basophils Sodium Potassium Chloride Carbon Dioxide Anion Gap BUN Creatinine Est GFR (CKD-EPI 2020) Glucose Calcium Magnesium Ferritin Total Bilirubin Conjugated Bilirubin AST ALT Alkaline Phosphatase C-Reactive Protein Total Protein Albumin Urine Color Yellow Urine Clarity Clear Urine pH 6.5 Ur Specific [place] 1.015 Urine Protein Negative Urine Ketones Negative Urine Blood Negative Urine Nitrite Negative Urine Bilirubin Negative Urine Urobilinogen 0.2 Ur Leukocyte Esterase Trace H Urine RBC Negative Urine WBC 0-2 Ur Epithelial Cells Rare Urine Crystals Negative Urine Bacteria Rare Urine Casts Negative Urine Mucus Negative Ur Culture Indicated? Yes Urine Glucose Negative COVID-19 Source SARS-CoV-2 (PCR)
--- NOTE | 2022-06-05 17:48 | W.PULMCON ---
General Date Of Service Date of service: 06/05/22 Time of Service: 12:45 Reason for Consult: RUL mass Assessment and Plan Assessment and plan (1) Abnormal chest CT: Status: Acute (2) Chronic obstructive lung disease: Status: Acute Assessment and plan: This is a 71 yo female with COPD and extensive former smoking history who is admitted for COVID, found to have a RUL consolidation tht is somewhat concerning for malignancy. In speaking with her, as detailed in HPI, she does not wish for work up or treatment for this if it is cancer. She has received both Levaquin and azithromycin so presumably if this was a pneumonia it has been treated. I would recommend a repeat chest CT in 2 months time to assess for resolution. She is willing to do this, but prefers to have this care provided by her primary provider Yazmin Yañez, so I will be sure to sent my note her way to ensure follow up of this. I told her that if she were to change her mind, I am happy to see her. From a COPD standpoint she tells me she is happy with her current regimen and does not feel the need for it to be improved upon at this time. RUL consolidation - recommend chest CT in 2 months to assess for resolution - patient prefers this be done by PCP - will send note to Yazmin Yañez for this COPD - continue home regimen, patient satisfied Qualifiers: COPD type: emphysema Emphysema type: unspecified Qualified Code(s): J43.9 - Emphysema, unspecified History of Present Illness Narrative: This is a 71 yo female who has a history of COPD, emphysema and former smoking who is admitted for a COPD exacerbation and COVID 19. She was previously treated for a pneumonia with a course of Levaquin as well a azithromycin. She had a chest CT performed on 05/30/22 for continued hypoxia and an elevated D-dimer and it found a RUL consolidation that certainly could be suspicious for malignancy, particularly given her >100 pack year smoking history. I discussed this finding on the chest CT with the patient to which she responded yup, I know, and I don't care. She proceeded to tell me that she kept her alive for 18 months who had small cell lung cancer who ultimately from this and she would never go through that. I explained to her that this may represent a pneumonia that has scarred and will shrink, as I cannot see an abnormality tehre and on prior CXR from earlier in the year. She was hopeful that this was the case. She told me that if it is a cancer she would not do anything for it. 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 I did mention that for her lesion specifically, if it did in fact end up being a cancer, is not consistent with small cell, and would be more consistent with non small cell, which is much easier to treat. I also mentioned that I saw no lymph node enlargement, which means that if that lesion were to turner off to be a cancer, that there is a chance that they would be able to resect it and she would be cured. Despite this information, she did not change her opinion about never wanting treatment. In discussing the plan for a repeat chest CT in a couple months to see if this area resolves she was fine with this but prefers to just have this done through her primary provider Yazmin Yañez. She is on Advair and Combivent for her COPD and feels as though her symptoms are well managed. She states she rarely has exacerbations, except for when she gets sick. Review of Systems All systems reviewed & are unremarkable except as noted in HPI and below PFSH All Active Problems (Updated 06/05/22 @ 09:56 by Victoria Bolivar MD, [place]) Dysuria (Acute) Discharge planning issues (Acute) DVT prophylaxis (Acute) COVID-19 (Acute) Abnormal chest CT (Acute) Advance care planning (Acute) Respiratory failure (Acute) CHF (congestive heart failure) (Chronic) Cervical arthritis with myelopathy (Acute) Hypomagnesemia (Acute) Acute exacerbation of chronic obstructive pulmonary disease (COPD) (Acute) Arthritis (Acute 02/10/13) Chronic obstructive lung disease (Acute) h/o tobacco use, quit 2008 Osteoporosis (Acute 01/14/08) Tachycardia (Chronic) HTN (hypertension) (Chronic) GERD (gastroesophageal reflux disease) (Chronic) Medical History (Updated 06/05/22 @ 09:56 by Victoria Bolivar MD, [place]) Acute on chronic diastolic CHF (congestive heart failure) Acute on chronic respiratory failure with hypoxia and hypercapnia CAP (community acquired pneumonia) COVID-19 -associated with COPD exacerbation GERD (gastroesophageal reflux disease) HTN (hypertension) Parotid mass Resolved after 3 months without intervention Tobacco dependence due to cigarettes Quit smoking when she was 59 years old Surgical History Endoscopic Carpal Tunnel release (03/31/13) Left 7.2.13 Family History Mother Essential hypertension Hyperlipidemia Father Heart disease Neoplasm LUNG Lung cancer Sister No problems noted. Sister No problems noted. Brother No problems noted. Brother No problems noted. Maternal Grandfather Stroke Paternal Grandfather Heart disease Maternal Grandmother Heart disease Paternal Grandmother Stroke Son Diabetes Essential hypertension Daughter No problems noted. Social History Smoking/Tobacco Use Status: Former Tobacco Use tobacco type: cigarettes Quit Date: 02/02/00 Tobacco: How many years used: 50 Second Hand Exposure: Yes Smoking risk assessment performed?: Yes Alcohol Intake: never Drug use: Never Substance use type: does not use Counseling given: No Counseling provided: none Caregiver/Support person: No Household members: family Communication Needs: None Do you need help understanding health information?: Never Pets and animals: Yes Pets and animals: dog(s) Sexually active: No Do you think of yourself as: straight/heterosexual Current gender identity: female What is your relationship status?: How often do you talk on the phone with friends or family?: three or more times per week How often do you get together with friends or relatives?: three or more times per week Do you belong to any clubs or organized social groups?: no Panel score (0-1 are the most socially isolated patients): 1 What type of physical activity do you participate in: none Special juan needs: No Seatbelt use: sometimes Helmet use: No Drive intox 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 Do you feel safe at home: Yes Do you feel safe in your relationship?: Yes Visit Medication and Allergies Active Medications Generic Name Dose Route Start Last Admin Trade Name Freq PRN Reason Stop Dose Admin Acetaminophen 650 mg 05/25/22 21:06 06/05/22 15:14 Acetaminophen 325 Mg Tab PO 650 mg Q4H PRN PRN Administration Acetazolamide 250 mg 06/02/22 08:30 06/05/22 07:26 Acetazolamide 250 Mg Tab PO 250 mg DAILY [facility] Administration Al Hydrox/Mg Hydrox/Simethicone 30 ml 05/25/22 21:06 Mylanta Suspension 30 Ml Cup PO Q2H PRN PRN Albuterol/Ipratropium 1 puff 05/26/22 12:00 06/05/22 17:42 Ipratropium/Albuterol 4 Gm 120 Puff Inh IH 1 puff QID [facility] Administration Amlodipine Besylate 10 mg 06/01/22 11:30 06/05/22 07:26 Amlodipine 10 Mg Tab PO 10 mg DAILY [facility] Administration Budesonide/Formoterol Fumarate 2 puff 05/26/22 08:30 06/05/22 07:54 Budesonide/Formoterol 160/4.5 6 Gm 60 Puff Inh IH 2 puffs BID [facility] Administration Device 1 each 05/26/22 12:00 Inhaler, Assist Device MC DIRECTED [facility] Dexamethasone 6 mg 06/06/22 08:30 Dexamethasone 4 Mg Tab PO DAILY [facility] Dextrose 0 gm 05/25/22 21:26 Glucose 40% Oral Solution 15 Gm/37.5 Gm Tube PO DIRECTED PRN Dextrose/Water 0 gm 05/25/22 21:26 Dextrose 50%-Water 25 Gm/50 Ml Syr IVP DIRECTED PRN Digoxin 0.125 mg 05/26/22 08:30 06/05/22 07:26 Digoxin 0.125 Mg Tab PO 0.125 mg QAM [facility] Administration Dimethicone/Zinc Oxide 0 gm 05/25/22 19:31 Misa Protect Cream 142 Gm Tube TP PRN PRN Docusate Sodium 100 mg 05/25/22 21:06 Docusate Sodium 100 Mg Cap PO TID PRN PRN Enoxaparin Sodium 40 mg 05/26/22 08:30 06/05/22 07:25 Enoxaparin 40 Mg/0.4 Ml Syr SC 40 mg Q24H [facility] Administration Esomeprazole Magnesium 40 mg 05/26/22 07:30 06/05/22 07:26 Esomeprazole 40 Mg Capcr PO 40 mg DAILY@0730 [facility] Administration Fluconazole 200 mg 06/01/22 20:00 06/04/22 20:19 Fluconazole 100 Mg Tab PO 200 mg QPM [facility] Administration Furosemide 40 mg 06/02/22 08:30 06/05/22 15:13 Furosemide 40 Mg Tab PO 40 mg BID@0830,1600 [facility] Administration Guaifenesin 600 mg 06/02/22 20:00 06/05/22 07:26 Guaifenesin 600 Mg Tabcr PO 600 mg BID [facility] Administration Sodium Chloride 500 mls @ 0 mls/hr 05/25/22 21:06 05/31/22 12:36 Saline 500ml Bag IV 30 mls/hr PRN PRN Administration As Directed IV Miscellaneous Supplies 1 each 05/25/22 21:15 Iv Access IV DIRECTED [facility] Levalbuterol HCl 1.25 mg 05/25/22 21:23 05/30/22 07:49 Levalbuterol 1.25 Mg/3 Ml Upd Vial UPD 1.25 mg Q2H PRN PRN Administration Magnesium Hydroxide 30 ml 05/25/22 21:06 06/03/22 14:08 Milk Of Magnesia 30 Ml Cup PO 30 ml DAILY PRN PRN Administration Miconazole Nitrate 0 gm 06/05/22 22:00 Miconazole 2% Vag 45 Gm Tube VG HS [facility] Polyethylene Glycol 17 gm 05/25/22 21:06 Polyethylene Glycol 3350 17 Gm Packet PO DAILY PRN PRN Constipation Sodium Chloride 0 ml 05/25/22 21:06 06/05/22 07:25 Normal Saline Flush 10 Ml Syr IVP 10 ml PRN PRN Administration Tiotropium [place] 2 puff 06/01/22 08:30 06/05/22 07:56 Tiotropium [place]-Respimat 10 Puff Inh IH Not Given DAILY [facility] Allergies diltiazem Allergy (Intermediate, Verified 05/23/22 10:17) LE and Facial Edema hydrochlorothiazide Allergy (Mild, Verified 05/23/22 10:17) rash Sulfa (Sulfonamide Antibiotics) Allergy (Unknown, Verified 05/23/22 10:17) metoprolol Adverse Reaction (Intermediate, Verified 05/25/22 17:29) Fluid Retention lisinopril Adverse Reaction (Mild, Verified 05/23/22 10:17) did not feel well Exam Narrative Exam Narrative: Gen: NAD, normal respiratory effort, well-nourished HENT: PERRL, nasal turbinates normal without erythema or inflammation, moist oral mucosa, Mallampati 2, No LAD or JVD Chest: No respiratory distress, normal appearance of chest, clear to auscultation bilaterally, no crackles or wheezes, normal inspiratory effort Heart: regular rate and rhythym, no murmurs, rubs or gallops Abdomen: Non-distended, soft, non tender Extremities: No clubbing, edema, cyanosis, rashes Neuro: AAOx3 , non focal Psych: cooperative, appropriate mental affect Results Last Vital Signs Temp 36.7 C 06/05/22 16:26 Pulse 91 H 06/05/22 16:26 Resp 22 06/05/22 16:26 BP 121/66 06/05/22 16:26 Pulse Ox 92 06/05/22 16:26 Labs Result diagrams: 06/05/22 06:30 06/05/22 06:30 Labs: Laboratory Results - last 24 hr 06/05/22 06/05/22 06/05/22 06:30 06:30 09:16 WBC 13.06 H RBC 4.23 Hgb 11.0 L Hct 35.7 L MCV 84 MCH 26.0 L MCHC 30.8 L RDW 15.9 H Plt Count 573 H MPV 9.6 Immature Gran % 1.0 Neutrophils % 86.2 Lymphocytes % 3.1 Monocytes % 9.6 Eosinophils % 0.0 Basophils % 0.1 Nucleated RBC % 0.0 Absolute Neutrophils 11.26 H Absolute Lymphocytes 0.40 L Absolute Monocytes 1.25 H Absolute Eosinophils 0.00 Absolute Basophils 0.01 Sodium 131 L Potassium 4.5 Chloride 94 L Carbon Dioxide 33.8 H Anion Gap 3.2 BUN 40 H Creatinine 1.0 Est GFR (CKD-EPI 2020) 59.86 Glucose 106 Calcium 8.6 Magnesium 2.4 Ferritin 296 H Total Bilirubin 0.4 Conjugated Bilirubin 0.1 AST 31 ALT 69 H Alkaline Phosphatase 86 C-Reactive Protein 0.08 Total Protein 7.1 Albumin 3.1 L Urine Color Urine Clarity Urine pH Ur Specific [place] Urine Protein Urine Ketones Urine Blood Urine Nitrite Urine Bilirubin Urine Urobilinogen Ur Leukocyte Esterase Urine RBC Urine WBC Ur Epithelial Cells Urine Crystals Urine Bacteria Urine Casts Urine Mucus Ur Culture Indicated? Urine Glucose COVID-19 Source Nasal/Nares SARS-CoV-2 (PCR) Negative 06/05/22 11:44 WBC RBC Hgb Hct MCV MCH MCHC RDW Plt Count MPV Immature Gran % Neutrophils % Lymphocytes % Monocytes % Eosinophils % Basophils % Nucleated RBC % Absolute Neutrophils Absolute Lymphocytes Absolute Monocytes Absolute Eosinophils Absolute Basophils Sodium Potassium Chloride Carbon Dioxide Anion Gap BUN Creatinine Est GFR (CKD-EPI 2020) Glucose Calcium Magnesium Ferritin Total Bilirubin Conjugated Bilirubin AST ALT Alkaline Phosphatase C-Reactive Protein Total Protein Albumin Urine Color Yellow Urine Clarity Clear Urine pH 6.5 Ur Specific [place] 1.015 Urine Protein Negative Urine Ketones Negative Urine Blood Negative Urine Nitrite Negative Urine Bilirubin Negative Urine Urobilinogen 0.2 Ur Leukocyte Esterase Trace H Urine RBC Negative Urine WBC 0-2 Ur Epithelial Cells Rare Urine Crystals Negative Urine Bacteria Rare Urine Casts Negative Urine Mucus Negative Ur Culture Indicated? Yes Urine Glucose Negative COVID-19 Source SARS-CoV-2 (PCR)
[2022-06-05] MEDS: Fluconazole 100 MG TAB 200 MG PO (20:45)
[2022-06-05 22:23] LABS: Aspergillus Fumigatus IgE <0.35 kU/L
[2022-06-05 23:36] VITALS: BP 121/66; PULSE 91; RESP 20; TEMP 36.7; O2SAT 88
[2022-06-06] MEDS: Acetaminophen 325 MG TAB 650 MG PO ×3 (02:13→13:11)
[2022-06-06 07:25] VITALS: PULSE 84
[2022-06-06] MEDS: Esomeprazole 40 MG CAPCR PO (07:25)
[2022-06-06] MEDS: Normal Saline Flush 10 ML SYR IVP (07:25)
[2022-06-06] MEDS: Enoxaparin 40 MG/0.4 ML SYR SC (07:25)
[2022-06-06] MEDS: acetaZOLAMIDE 250 MG TAB PO (07:25)
[2022-06-06] MEDS: Digoxin 0.125 MG TAB PO (07:25)
[2022-06-06] MEDS: amLODIPine 10 MG TAB PO (07:26)
[2022-06-06] MEDS: Furosemide 40 MG TAB PO ×2 (07:26→15:53)
[2022-06-06] MEDS: guaiFENesin 600 MG TABCR PO ×2 (07:26→20:29)
[2022-06-06 07:32] VITALS: BP 133/66; PULSE 84; RESP 24; TEMP 36.4; O2SAT 92
[2022-06-06] MEDS: Ipratropium/Albuterol 4 GM 120 PUFF INH IH ×4 (07:35→20:29)
[2022-06-06] MEDS: Budesonide/Formoterol 160/4.5 6 GM 60 PUFF INH IH ×2 (07:35→20:31)
[2022-06-06] MEDS: Dexamethasone 4 MG TAB 6 MG PO (09:02)
--- NOTE | 2022-06-06 09:14 | CMPROGNOTE_ITS ---
- If Service Date Differs Date of service: 06/06/22 Time of Service: 09:14 Care Management Progress Note S/O: Jackie may discharge home with [facility] tomorrow, if needed. Per pt, she doesn't feel that she needs [facility] RN/PT, but will accept services if recommended. A: Jackie is a 71 year old female admitted to [facility] on 05/25/22 with COPD exacerbation, COVID pneumonia. P: Anticipate Jackie will return home once medically cleared. She will transport home via private vehicle by family. She will follow up with her PCP and discharge plan of care. CM will continue to follow.
[2022-06-06 10:09] VITALS: PULSE 101; PULSE 90; PULSE 98; O2SAT 87; O2SAT 90; O2SAT 94
--- NOTE | 2022-06-06 14:09 | W.PM.PROGNOT ---
Date of Service Date of service: 06/06/22 Time of Service: 14:09 Assessment and Plan Assessment and plan (1) Acute exacerbation of chronic obstructive pulmonary disease (COPD): Status: Acute Assessment and plan: Improving on current regimen. O2 requirement down to RA at rest, 1 L with activity. Seen by pulmonary and refuses workup of lung mass and follow up. Continue Combivent, Symbicort, and Spiriva. (2) COVID-19: Status: Acute Assessment and plan: Completed 10 days of remdesivir and baricitinib. better. COVID PCR negative again today - taken off of precautions. Still on dexamethasone - converted to PO. (3) HTN (hypertension): Status: Chronic Assessment and plan: On norvasc. However, reports BLE edema. Consider alternative therapy. Qualifiers: Hypertension type: essential hypertension Qualified Code(s): I10 - Essential (primary) hypertension (4) CHF (congestive heart failure): Status: Chronic Assessment and plan: HFPEF. Continue furosemide and acetazolamide. echo on this admission shows EF 60% with no significant valvular disease or WMA per report by Dr Biswas Qualifiers: Heart failure type: unspecified Qualified Code(s): I50.9 - Heart failure, unspecified (5) Abnormal chest CT: Status: Acute Assessment and plan: Possible malignancy RUL. Refuses workup; seen by pulmonlogy. Dr Elliott is communicating with PCP as to the follow up that the patient would need at PCP's office for this. (6) Yeast infection involving the vagina and surrounding area: Status: Acute Assessment and plan: suspected d/t steroids. reports she has had in past. continue oral diflucan and miconazole cream. (7) DVT prophylaxis: Status: Acute Assessment and plan: SC enoxaparin (8) Discharge planning issues: Status: Acute Assessment and plan: Full code PT consulted O2 orders would be new but hopefully will be weaned off. Anticipate discharge home tomorrow. discussed with Dr Chino Subjective Subjective Patient reports: tolerating liquids well, tolerating a regular diet, voiding w/o difficulty (labia burning, no lesions) and afebrile; denies shortness of breath (improving, oxygen down to 1 liter with ambulation only, otherwise on room air) Interval history since last seen: vaginal itching, swelling and cottage cheese like discharge. Exam Const General: cooperative and no acute distress Nutritional Appearance: average body habitus Orientation: alert, awake and oriented x3 HENMT Head: normal to inspection, normocephalic and atraumatic Mouth: oral mucosae normal Neck Neck: normal visual inspection Chest Chest: normal inspection of the chest Resp Effort & Inspection: normal respiratory effort Cardio Rate: regular rate Rhythm: regular rhythm GI Palpation: soft and nontender Auscultation: normal bowel sounds External Female Exam: external swelling, no lesions, no ecchymosis and No urethral discharge Speculum Exam - Vagina: normal appearance of the vagina, abnormal vaginal discharge white, not erythematous and other (itchy) Skin Lesions: no lesions Rashes: rashes noted (slight erythema and swelling to labias, scant white discharge noted) Neuro General: patient alert, patient awake and no focal motor deficits Cognition: normal cognition Speech: speech normal Gait: normal gait Motor: muscle tone normal throughout Extrem General: no calf tenderness and edema Objective Last Vital Signs Temp 36.4 C L 06/06/22 07:32 Pulse 84 06/06/22 07:32 Resp 24 06/06/22 07:32 BP 133/66 06/06/22 07:32 Pulse Ox 92 06/06/22 07:32 Laboratory Results - last 24 hr 06/02/22 06/02/22 06:55 06:55 A.fumigatus Allerg IgE <0.35 Aspergillus Ag (EIA) <0.500 A. fumigatus IgG Ab 97.1
--- NOTE | 2022-06-06 15:05 | PT.INTREAT ---
PT Notes Visit Reasons: COPD Exacerbation,COVID pneumonia,Respitory Failur Inpatient Physical Therapy Treatment Note [facility] Date: 06/06/22 SUBJECTIVE: Jackie states that she is extremely claustrophobic which make it difficult for her to walk with a mask on. OBJECTIVE: [] BED MOBILITY/TRANSFERS Sit-stand:S Stand-sit:S GAIT Assistive Device: FWW Weight bearing: AT Assist:CGA/SBA Distance: approx 50' in am and 75' in pm RA/ 2L of O2. ASSESSMENT: tolerated session fairly well. O2 sats dropped to 85% on RA, 30 sec rest and 2L of O2 to 93%. PLAN: will continue to progress her strength and functional mobility to tolerance. TREATMENT CODE/TIME: 15 min in am and 10 min pm. [id number]
[2022-06-06 15:32] VITALS: BP 125/67; PULSE 93; RESP 22; TEMP 36.5; O2SAT 95
[2022-06-06 15:37] LABS: Fungitell Qualitative Negative (Negative); Fungitell Quantitative Value <31 pg/mL (<60 pg/mL)
[2022-06-06] MEDS: Fluconazole 100 MG TAB 200 MG PO (20:29)
[2022-06-06 23:53] VITALS: BP 146/89; PULSE 89; RESP 17; TEMP 36.6; O2SAT 90
[2022-06-07] MEDS: Acetaminophen 325 MG TAB 650 MG PO ×3 (00:48→12:35)
[2022-06-07 04:43] VITALS: RESP 12
[2022-06-07] MEDS: Milk of Magnesia 30 ML CUP PO (06:18)
[2022-06-07] MEDS: Budesonide/Formoterol 160/4.5 6 GM 60 PUFF INH IH (07:51)
[2022-06-07] MEDS: Ipratropium/Albuterol 4 GM 120 PUFF INH IH ×2 (07:51→11:58)
[2022-06-07] MEDS: Dexamethasone 4 MG TAB 6 MG PO (08:03)
[2022-06-07] MEDS: acetaZOLAMIDE 250 MG TAB PO (08:03)
[2022-06-07] MEDS: Enoxaparin 40 MG/0.4 ML SYR SC (08:03)
[2022-06-07 08:04] VITALS: PULSE 91
[2022-06-07] MEDS: Digoxin 0.125 MG TAB PO (08:04)
[2022-06-07] MEDS: Esomeprazole 40 MG CAPCR PO (08:05)
[2022-06-07] MEDS: Furosemide 40 MG TAB PO (08:05)
[2022-06-07] MEDS: amLODIPine 10 MG TAB PO (08:05)
[2022-06-07] MEDS: guaiFENesin 600 MG TABCR PO (08:05)
[2022-06-07 08:11] VITALS: BP 145/64; PULSE 93; RESP 16; TEMP 36.3; O2SAT 91
[2022-06-07 08:34] LABS: Anion Gap 9.1 mmol/L (3-11); BUN 38 mg/dL (7-18); CO2 27.9 mmol/L (21.0-32.0); CREATININE 1.2 mg/dL (0.55-1.02); Calcium 8.6 mg/dL (8.5-10.1); Chloride 92 mmol/L (98-107); Estimated GFR 48.09 (mL/min/1.73m2); Glucose 159 mg/dL (74-106); Potassium 4.2 mmol/L (3.5-5.1); Sodium 129 mmol/L (136-145)
[2022-06-07 12:00] VITALS: PULSE 91; PULSE 98; PULSE 99; O2SAT 91; O2SAT 93; O2SAT 96
--- NOTE | 2022-06-07 14:52 | DSE_ITS ---
DS: Diagnosis Discharge Diagnosis (1) Acute exacerbation of chronic obstructive pulmonary disease (COPD): Status: Acute (2) HTN (hypertension): Status: Chronic (3) CHF (congestive heart failure): Status: Chronic (4) Yeast infection involving the vagina and surrounding area: Status: Resolved Discharge Plan Disposition Patient Disposition: HOME Condition: Improving Discharge Details Reason For Visit: COPD Exacerbation,COVID pneumonia,Respitory Failur Admit Date/Time: 05/25/22 19:31 Admit Provider: Allan Law Attending Provider: Allan Law Primary Care Provider: Yazmin Yañez Hospital Course Hospital Course: This is a 71-year-old female presented to the [facility] emergency department with hypoxemia and respiratory distress with respiratory failure. She was found to be COVID-19 positive.? She had a persistent right infiltrate with n o improvement from her previous hospitalization, which then she was treated with Levaquin.? She was given Zosyn and Zithromax IV for treatment of right lung infiltrates, and steroids. She was admitted on Covid precautions to the medical floor. ? She was given a course of Remdesivir.? She did require BiPap the first hospital day and was weened down to nasal cannula, then room air.? Her procalcitonin was negative, the Zosyn was stopped. She completed a course of Baricitinib also.? She was evaluated by Pulmonary and Jackie was told that this could be a possible mass.? Jackie does not want to explore that any further and stated if it was cancer she would not have anything done anyway.? Pulmonary recommended repeat chest CT in a couple of months to see if this area resolves. Jackie was fine with and will have it done by her PCP Yazmin Yañez APRN. She was seen by Dr Bolivar and confirmed her wishes to be DNR/DNI and that was updated in the medical record. ??She was discharged to home, improved with no services.? Her son and grandson she said, will take good care of her.? Home Meds and New Rx's Prescriptions: New albuterol sulfate 90 mcg/actuation HFA aerosol inhaler 2 puff inhalation Q6H PRNQty: 8.5 0RF Continued digoxin 125 mcg (0.125 mg) tablet 125 mcg PO QAM Qty: 90 4RF esomeprazole magnesium 40 mg capsule,delayed release(DR/EC) 40 mg PO DAILY Qty: 90 3RF fluticasone propion-salmeterol [Advair Diskus] 250-50 mcg/dose blister with device 1 inh Inhalation BID Qty: 3 4RF furosemide 20 mg tablet See Rx Instructions PO .COMPLEX Qty: 135 4RF Rx Instructions: Alternating 20 mg and 40 mg PO every other day. Combivent Respimat 20-100 mcg/actuation mist 1 puff IH QID Qty: 12 4RF Rx Instructions: space evenly during waking hours montelukast 10 mg tablet 10 mg PO DAILY Qty: 90 3RF acetaminophen 500 mg Tablet 1,000 mg PO PRN PRN Changed amlodipine 5 mg tablet 10 mg PO BID Qty: 180 3RF Discharge Instructions Instructions: COPD (Chronic Obstructive Pulmonary Disease) (DC), COVID-19 (Coronavirus Disease 2019) (DC) Additional Instructions: We increased your amlodipine to 10 mg daily. We will send you home with a pulse oximeter to occasionally keep track of your oxygenation. Stand Alone Forms: Nursing Discharge Form Referrals: Yazmin Yañez [employer]ST[employer] [Primary Care Provider] - (Message left with office for them to call you with a follow up appointment, if you do not hear from them please call office to make an appointment) Activity:: Activity as Tolerated Equipment/Supplies:: No Equipment Needed Diet:: Low Sodium Discharge Orders Discharge Orders: Discharge Order (Routine); Ordered 06/07/22 Ordered By: Gladys Leo Discharge Data Discharge Date/Time-TO BE ENTERED AT DEPARTURE: 06/07/22 15:49 DS: Summary Time Spent with Patient providing and/or coordinating discharge services: Less than 30 minutes Status at Discharge Functional status at discharge: independent ambulation Overall status at discharge: patient is progressing back to baseline Mental Status: mental status grossly normal Speech and Movement: speech and movement normal Mood: congruent mood Affect: normal affect Exam Psych Mental Status: mental status grossly normal Speech and Movement: speech and movement normal Mood: congruent mood Affect: normal affect DS: Data Vitals/I&O Vitals and I&O: Vital Signs Temperature 36.3 C L 06/07/22 08:11 Temperature Source Tympanic 06/07/22 08:11 Pulse 93 H 06/07/22 08:11 Pulse Rhythm Regular 06/07/22 08:54 Pulse 123 H 05/27/22 14:01 Respiratory Rate 16 06/07/22 08:11 Respiratory Effort Non-Labored 06/07/22 08:54 Respiratory Depth Normal 06/07/22 08:54 Respiratory Pattern Normal 06/07/22 08:54 Blood Pressure 145/64 H 06/07/22 08:11 Blood Pressure Mean 89 05/27/22 14:00 Blood Pressure Position Sitting 05/27/22 12:58 Pulse Oximetry 91 L 06/07/22 08:11 Oxygen Delivery Method Room Air 06/07/22 08:11 Oxygen Flow Rate 0 06/07/22 08:11 Fraction of Inspired Oxygen (FIO2) 30 06/07/22 04:43 Pain Level 6 06/07/22 08:11 Comment 06/05/22 23:36 Intake & Output 06/06/22 06/07/22 06/07/22 23:59 11:59 23:59 Intake Total 450 / 1140 240 / 240 Output Total 450 / 1350 Balance 0 / -210 240 / 240 Weight 63.1 kg Intake: Oral 450 / 1140 240 / 240 Output: Urine 450 / 1350 Other: Urine Color Yellow Yellow Urine Appearance Clear Clear Urine Odor Normal None Comment not measured due to Pt throwing toilet paper in commode unmeasured amount mixed with stool Stool Size Moderate Small Stool Characteristics Formed Soft Hard Brown Voiding Methods Bedside Commode Bedside Commode Data Completed and Pending Labs on day of discharge: Labs from last 24 hours 06/07/22 06/02/22 06:56 06:55 Sodium 129 L Potassium 4.2 Chloride 92 L Carbon Dioxide 27.9 Anion Gap 9.1 BUN 38 H Creatinine 1.2 H Est GFR (CKD-EPI 2020) 48.09 Glucose 159 H Calcium 8.6 B-(1,3)-D-Glucan Quant <31 B-(1,3)-D-Glucan Qual Negative PFSH All Active Problems (Updated 06/08/22 @ 00:06 by FERNIE HE) CHF (congestive heart failure) (Chronic) Cervical arthritis with myelopathy (Acute) Acute exacerbation of chronic obstructive pulmonary disease (COPD) (Acute) Arthritis (Acute 02/10/13) Osteoporosis (Acute 01/14/08) Tachycardia (Chronic) HTN (hypertension) (Chronic) GERD (gastroesophageal reflux disease) (Chronic) Medical History (Updated 06/08/22 @ 00:06 by FERNIE HE) Abnormal chest CT Acute on chronic diastolic CHF (congestive heart failure) Acute on chronic respiratory failure with hypoxia and hypercapnia CAP (community acquired pneumonia) Chronic obstructive lung disease h/o tobacco use, quit 2008 COVID-19 -associated with COPD exacerbation COVID-19 GERD (gastroesophageal reflux disease) HTN (hypertension) Parotid mass Resolved after 3 months without intervention Tobacco dependence due to cigarettes Quit smoking when she was 59 years old Surgical History Endoscopic Carpal Tunnel release (03/31/13) Left 7.2.13 Family History Mother Essential hypertension Hyperlipidemia Father Heart disease Neoplasm LUNG Lung cancer Sister No problems noted. Sister No problems noted. Brother No problems noted. Brother No problems noted. Maternal Grandfather Stroke Paternal Grandfather Heart disease Maternal Grandmother Heart disease Paternal Grandmother Stroke Son Diabetes Essential hypertension Daughter No problems noted. Social History Smoking/Tobacco Use Status: Former Tobacco Use tobacco type: cigarettes Quit Date: 02/02/00 Tobacco: How many years used: 50 Second Hand Exposure: Yes Smoking risk assessment performed?: Yes Alcohol Intake: never Drug use: Never Substance use type: does not use Counseling given: No Counseling provided: none Caregiver/Support person: No Household members: family Communication Needs: None Do you need help understanding health information?: Never Pets and animals: Yes Pets and animals: dog(s) Sexually active: No Do you think of yourself as: straight/heterosexual Current gender identity: female What is your relationship status?: How often do you talk on the phone with friends or family?: three or more times per week How often do you get together with friends or relatives?: three or more times per week Do you belong to any clubs or organized social groups?: no Panel score (0-1 are the most socially isolated patients): 1 What type of physical activity do you participate in: none Special juan needs: No Seatbelt use: sometimes Helmet use: No Drive intox or ride w/intox dedicated intermodal truck driver: No Do you feel safe at home: Yes Do you feel safe in your relationship?: Yes
--- NOTE | 2022-06-07 14:56 | PT.INTREAT ---
Date of service: 06/07/22 Time of Service: 11:44 PT Notes Visit Reasons: COPD Exacerbation,COVID pneumonia,Respitory Failur Inpatient Physical Therapy Treatment Note [facility] Date: 06/07/2022 PRECAUTIONS: Activity as tolerated SUBJECTIVE: Jackie is pleasant and agreeable to participating in PT.? She reports that she has been having diarrhea today and does not want to walk too far away from the toilet or commode. She wants to go home today. OBJECTIVE:? PAIN: No c/o pain ? BED MOBILITY/TRANSFERS: Sit-stand: I Stand-sit: I ? GAIT: Assistive device: FWW Weight bearing: Full Assist: I Distance: ~5 minutes Deviation: Occasional cueing for deep breathing and breathing techniques. ? VITALS: SaO2: 89-92% on RA with gait training. Patient briefly dropped to 89% x2 during gait training, and quickly recovered back to 90-92% with cueing for breathing techniques. ASSESSMENT: Patient tolerated session without complaint. She was able to maintain appropriate and safe oxygen saturation without use of supplemental oxygen, although does require occasional cueing for breathing techniques. She demonstrates independence with transfers and gait training with FWW support at this time. PLAN: Patient to discharge to home later today, per provider. TREATMENT CODE/TIME: 10 minutes; 13455 (11:44)
[2022-06-07 15:10] VITALS: BP 108/57; PULSE 88; RESP 18; TEMP 36.3; O2SAT 96
--- NOTE | 2022-06-07 15:47 | PDOC.CMDIS ---
- If Service Date Differs Date of service: 06/07/22 Time of Service: 15:47 LACE Index Scoring Tool - Questions: Length of Stay (in days): 7 - 13 Acuity (Admit via E.D.?): Yes Comorbidities: Cerebrovascular Disease, Congestive Heart Failure, Chronic Pulmonary Disease E.D. Visits: 2 - Answers: Total Score: 15 Risk of Readmission: High Risk Care Management Discharge Reason for Hospitalization: COPD exacerbation, COVID pneumonia Discharge Plan: Jackie was able to completely wean off supplimental O2 and is discharged home via private vehicle with family. New RX's are transmitted to [facility]. No new HH services are ordered at time of discharge, per pt request. New Pulse Ox is provided to pt for continued monitoring. Jackie will call her PCP to schedule a Hosp. F/U appt tomorrow, PCP office is notified and may contact her directly. In addition, during this admission Dr. Lee recommended a repeat chest CT in 2 months. Jackie prefers this imaging to be ordered by her PCP. Patient/Family Education Needs: Review discharge instructions, limitations, medications and plan to follow up with PCP. Review ask me three.
--- NOTE | 2022-06-07 18:00 | PT.INDS ---
Date of service: 06/07/22 PT Notes Visit Reasons: COPD Exacerbation,COVID pneumonia,Respitory Failur Physical Therapy Inpatient Discharge Summary Date: 06/07/2022 Dates of service: 06/05/2022 through 06/07/2022 This is a clinical summary of care provided for the duration of dates listed above. No charge was made in the completion of this documentation. Referring Doctor:Angelina Chino MD PT Orders: PT CONSULT: Eval and treat Precautions: Fall.? Standard.? Activity as tolerated. Patient Profile/Admitting Diagnosis: Patient is a 71-year-old female who presented to the ED on 05/25/2022 due to severe respiratory distress.? Patient was diagnosed acute on chronic obstructive pulmonary disease, COVID-19 infection,? hypertension,? congestive heart failure,? and abnormal chest CT.? PMHX: All Active Problems?(Updated 05/25/22 @ 23:25 by Allan Law) Pneumonia due to COVID-19 virus (Acute) CHF (congestive heart failure) (Chronic) Cervical arthritis with myelopathy (Acute) Hypomagnesemia (Acute) Acute exacerbation of chronic obstructive pulmonary disease (COPD) (Acute) Arthritis (Acute 02/10/13) Chronic obstructive lung disease (Acute) h/o tobacco use, quit 2008 Osteoporosis (Acute 01/14/08) Tachycardia (Chronic) HTN (hypertension) (Chronic) GERD (gastroesophageal reflux disease) (Chronic) Medical History?(Updated 05/25/22 @ 23:25 by Allan Law) Acute on chronic diastolic CHF (congestive heart failure) Acute on chronic respiratory failure with hypoxia and hypercapnia CAP (community acquired pneumonia) COVID-19 -associated with COPD exacerbation GERD (gastroesophageal reflux disease) HTN (hypertension) Parotid mass Resolved after 3 months without intervention Tobacco dependence due to cigarettes Quit smoking when she was 59 years old Surgical History? 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 She is independent with all aspects of ADLs with no assistive ambulatory device nor adaptive equipment.? She still drives.? She states she has 1 step to enter the house which he shares with her son and grandson. Current Functional Limitations: Patient has poor activity tolerance which has limited her ability to participate in all aspects of ADLs Equipment Owned/DME: [facility] Subjective: NT. See most recent TYRE FITTER notes. Objective: General Observation: NT. See most recent TYRE FITTER notes. Mental Status: NT. See most recent TYRE FITTER notes. Pain: NT. See most recent TYRE FITTER notes. Vital Signs: NT. See most recent TYRE FITTER notes. ROM: Right Upper Extremity: ? Shoulder Flexion WFL. Shoulder abduction WFL. Elbow flexion WFL. Wrist flexion WFL. Functional opening and closing of hand WFL. Left Upper Extremity:? Shoulder Flexion WFL. Shoulder abduction WFL. Elbow flexion WFL. Wrist flexion WFL. Functional opening and closing of hand WFL. Right Lower Extremity: Hip flexion WFL. Hip abduction WFL. Knee flexion WFL. Ankle dorsiflexion WFL. Ankle plantarflexion WFL. Left Lower Extremity: Hip flexion WFL. Hip abduction WFL. Knee flexion WFL. Ankle dorsiflexion WFL. Ankle plantarflexion WFL. STRENGTH: Right Upper Extremity: Shoulder flexors 4-/5. Shoulder abductors 4-/5. Elbow flexors 4/5. Elbow extensors 4/5. 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 Left Upper Extremity: Shoulder flexors 4-/5. Shoulder abductors 4-/5. Elbow flexors 4/5. Elbow extensors 4/5. 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 Right Lower Extremity: Hip flexors 4-/5. Hip abductors 4-/5. Knee flexors 4/5. Knee extensors 4/5. Ankle dorsiflexors 5/5. Ankle plantarflexors 5/5. Right Lower Extremity:Hip flexors 4-/5. Hip abductors 4-/5. Knee flexors 4/5. Knee extensors 4/5. Ankle dorsiflexors 5/5. Ankle plantarflexors 5/5. Sensation: Intact to B UE/LE as to pain and pressure. BED MOBILITY/TRANSFERS: Sit-stand: I Stand-sit: I ? GAIT: Assistive device: FWW Weight bearing: Full Assist: I Distance: ~5 minutes Deviation: Occasional cueing for deep breathing and breathing techniques. ? VITALS: SaO2: 89-92% on RA with gait training.? Patient briefly dropped to 89% x2 during gait training, and quickly recovered back to 90-92% with cueing for breathing techniques. Balance: Static Sitting: Good Dynamic Sitting: Good Static Standing: Fair Dynamic Standing: Fair Assessment:? Patient is a 71-year-old female who presented to the ED on 05/25/2022 due to severe respiratory distress.? Patient was diagnosed acute on chronic obstructive pulmonary disease, COVID-19 infection,? hypertension,? congestive heart failure,? and abnormal chest CT.?? Patient presents with clinical signs and symptoms consistent with current/admitting diagnoses that have resulted to mobility limitations, gait instability, generalized weakness, and impairment of motor control as demonstrated by the following impairment level findings: 1.? Decreased strength to B LE major muscle groups 2.? Impaired sitting/standing balance 3.? Impaired activity tolerance 4.? Need for oxygen supplementation during mobility performance Impairments are contributing to the following functional limitations: 3.? Inability to safely ambulate without assistive device 4.? Increase completion time for mobility ADL performance 5.? Increased fall risk 6.? Inability to negotiate steps alone safely Goals: Goals X1 week 1. Supine-Sit independent 2. Sit-Supine independent 3. Sit-Stand independent 4. Stand-Sit independent 5. Bed-Chair independent 6. Chair-Bed independent 7. Independent gait on level surface without use of assistive device for at least 100 feet without report of pain nor dyspnea 8. Good static and dynamic standing balance/tolerance DISCHARGE RECOMMENDATIONS: [] ? Home with no services [] [X] ? Home with services.? Home when medically cleared by hospitalist.? Patient will benefit from home health PT services in order to progress mobility level using least restrictive assistive ambulatory device, assess home safety, identify additional equipment needs, and establish a functional maintenance program that will increase ability of patient to remain at home.? Will require FWW at home to maximize independence. [] ? Home with outpatient PT [] [] ? SNF for continued rehabilitation [] [] ? [facility] [] [] ? SNF versus LTC based on ability to participate and progress [] TREATMENT CODE/TIME: NC Thank you for the opportunity to participate in the care of this patient. Susana Lainez PT, DPT, CLT [facility] [place], [place]
== END 2022-06-07 15:49 | disposition home or self-care (01) | DRG 177 ==
LOC: ER 19:38 → ICU 20:11 → MS 05-27 14:34
PROVIDERS: Family Medicine; Internal Medicine; Admitting Provider Family Medicine; Emergency Provider Physician Assistant; Visit Provider Family Medicine
DX: U07.1 COVID-19 (principal); J96.01 Acute respiratory failure with hypoxia; J44.1 Chronic obstructive pulmonary disease with (acute) exacerbation; M47.12 Other spondylosis with myelopathy, cervical region; I50.32 Chronic diastolic (congestive) heart failure; E87.2 Acidosis; I48.91 Unspecified atrial fibrillation; E83.42 Hypomagnesemia; I11.0 Hypertensive heart disease with heart failure; Z87.891 Personal history of nicotine dependence; M81.0 Age-related osteoporosis without current pathological fracture; K21.9 Gastro-esophageal reflux disease without esophagitis; R79.1 Abnormal coagulation profile; I27.20 Pulmonary hypertension, unspecified; Z66 Do not resuscitate; R91.8 Other nonspecific abnormal finding of lung field; R30.0 Dysuria; B37.3 Candidiasis of vulva and vagina
CPT/HCPCS: 36415; 71275; 80048; 80053; 80076; 82805; 84145; 85652; 87305; 87449; 87635; 93005; 94618; 94640; 96361; 96374; 97162; 97530; 99291; J1650; 36600; 71045; 80162; 81003; 81015; 82728; 83605; 83615; 83735; 83880; 84484; 85025; 85049; 85379; 86003; 86140; 86606; 87070; 87086; 87205; 87899; 93010; 93306; 94660; 94664; 94667; 94668; 94760; 99223; 99231; 99232; 99233; 99238; J0248; J0456; J0696; J1100; J1940; J2543; J2930; J3475; J3490; J7614; J7620; J8540

== ENCOUNTER 2023-06-24 12:40 | Outpatient (REF) | payer OTHER, SELFPAY ==
[2023-06-24 21:52] LABS: ALT 25 U/L (14-59); AST 15 U/L (15-37); Alkaline Phosphatase 100 U/L (46-116); Anion Gap 11.6 mmol/L (3-11); BUN 18 mg/dL (7-18); Bilirubin, Total 0.2 mg/dL (0.2-1.0); CO2 26.4 mmol/L (21.0-32.0); Calcium 9.6 mg/dL (8.5-10.1); Calculated LDL 106 mg/dL (<100); Chloride 99 mmol/L (98-107); Cholesterol 210 mg/dL (<200); Estimated GFR 59.49 (mL/min/1.73m2); Glucose 104 mg/dL (74-106); HDL Cholesterol 77 mg/dL (40-60); Potassium 4.7 mmol/L (3.5-5.1); Sodium 137 mmol/L (136-145); Total Protein 7.9 g/dL (6.4-8.2); Triglyceride 137 mg/dL (<150)
== END 2023-06-24 12:41 | disposition home or self-care (01) ==
LOC: LBN 12:40
PROVIDERS: PCP Nurse Practitioner Family; Visit Provider Nurse Practitioner Family
DX: I50.9 Heart failure, unspecified (principal); I10 Essential (primary) hypertension; K21.9 Gastro-esophageal reflux disease without esophagitis; J44.9 Chronic obstructive pulmonary disease, unspecified
CPT/HCPCS: 80053; 80061

== ENCOUNTER 2024-03-19 11:38 | Outpatient (REF) | payer OTHER, SELFPAY | END 2024-03-19 11:39 | disposition home or self-care (01) | LOC: LBN 11:38 | PROVIDERS: PCP Nurse Practitioner Family; Visit Provider Family Medicine | DX: N39.0 Urinary tract infection, site not specified (principal) | CPT/HCPCS: 87086 ==

== ENCOUNTER 2024-05-29 06:48 | Inpatient (IN) | payer OTHER, SELFPAY ==
[2024-05-29] VITALS (41 sets, daily range): BP systolic 111–159; BP diastolic 41–81; PULSE 66–93; RESP 2–37; TEMP 36.4–36.9; O2SAT 69–100
--- NOTE | 2024-05-29 06:45 | RT.EKG_ITS ---
APPROVED REPORT Exam: Resting ECG Reason for Exam: short of breath Patient Location: E HR:93 bpm ECG Measurements Heart Rate 93 AXIS AR 155 P 67 QRSd 85 QRS 100 QT 354 T 35 QTc 436 Conclusion Sinus rhythm...normal P axis, V-rate 60- 99 Ventricular premature complex...V complex w/ short R-R interval Right axis deviation...QRS axis ( 51,115)
--- NOTE | 2024-05-29 07:05 | ED.GENADUL_ITS ---
Discharge Plan Disposition Patient Disposition: Admit to [facility] Condition: Stable Discharge Details Chief Complaint: SOB Clinical Impression: Acute respiratory failure with hypoxia, COPD exacerbation, CAP (community acquired pneumonia) Primary Care Provider: Deven Collier ED Provider: Trav Resendez Home Meds and New Rx's Prescriptions: No Action cephalexin 500 mg capsule 500 mg PO QID Qty: 20 0RF amlodipine 10 mg tablet 10 mg PO BID Qty: 180 3RF digoxin 125 mcg (0.125 mg) tablet 125 mcg PO QAM Qty: 90 4RF esomeprazole magnesium 40 mg capsule,delayed release(DR/EC) 40 mg PO DAILY Qty: 90 3RF fluticasone propion-salmeterol [Advair Diskus] 250-50 mcg/dose blister with device 1 inh Inhalation BID Qty: 3 4RF furosemide 20 mg tablet See Rx Instructions .ROUTE .COMPLEX Qty: 135 4RF Dose Instruction: TAKE 1 TABLET (20MG) BY MOUTH EVERY OTHER DAY ALTERNATING WITH TAKING 2 TABLETS (40MG) BY MOUTH EVERY OTHER DAY Rx Instructions: TAKE 1 TABLET (20MG) BY MOUTH EVERY OTHER DAY ALTERNATING WITH TAKING 2 TABLETS (40MG) BY MOUTH EVERY OTHER DAY Combivent Respimat 20-100 mcg/actuation mist 1 puff IH QID Qty: 12 4RF Rx Instructions: space evenly during waking hours montelukast 10 mg tablet 10 mg PO DAILY Qty: 90 3RF acetaminophen 500 mg Tablet 1,000 mg PO PRN PRN albuterol sulfate 90 mcg/actuation HFA aerosol inhaler 2 puff inhalation Q6H PRNQty: 8.5 0RF HPI General Mode of arrival: ambulatory . Date/Time Provider Initiated Documentation: 05/29/24 07:00 . Limitations to Documentation: no limitations . Information obtained by: patient . History of Present Illness 73 year old F presents to the emergency department with the chief complaint of dyspnea, described as moderate, Patient started experiencing this week(s) (2) and it has been constant. No relieving factors improve symptom(s), No exacerbating factors reported . Patient notes cough and shortness of breath; denies chest pain and fever/chills. Patient did receive the following treatments prior to arrival, none Related Data Home Medications ?Medication ?Instructions ?Recorded ?Confirmed acetaminophen 500 mg tablet 1,000 mg PO PRN PRN 10/23/19 03/19/24 albuterol sulfate 90 mcg/actuation 2 puff inhalation Q6H PRN #8.5 06/07/22 03/19/24 aerosol inhaler grams amlodipine 10 mg tablet 10 mg PO BID #180 tabs 06/24/23 03/19/24 digoxin 125 mcg (0.125 mg) tablet 125 mcg PO QAM #90 tabs 06/24/23 03/19/24 esomeprazole magnesium 40 mg 40 mg PO DAILY #90 caps 06/24/23 03/19/24 capsule,delayed release fluticasone 250 mcg-salmeterol 50 1 inh inhalation BID #3 ea 06/24/23 03/19/24 mcg/dose blistr powdr for inhalation (Advair Diskus) furosemide 20 mg tablet See Rx Instructions .Route 06/24/23 03/19/24 .COMPLEX #135 tabs ipratropium 20 mcg-albuterol 100 1 puff inhalation QID #12 grams 06/24/23 03/19/24 mcg/actuation mist for inhalation (Combivent Respimat) montelukast 10 mg tablet 10 mg PO DAILY #90 tab-caps 06/24/23 03/19/24 cephalexin 500 mg capsule 500 mg PO QID #20 caps 03/19/24 03/19/24 Previous Rx's ?Medication ?Instructions ?Recorded albuterol sulfate 90 mcg/actuation 2 puff inhalation Q6H PRN #8.5 06/07/22 aerosol inhaler grams amlodipine 10 mg tablet 10 mg PO BID #180 tabs 06/24/23 digoxin 125 mcg (0.125 mg) tablet 125 mcg PO QAM #90 tabs 06/24/23 esomeprazole magnesium 40 mg 40 mg PO DAILY #90 caps 06/24/23 capsule,delayed release fluticasone 250 mcg-salmeterol 50 1 inh inhalation BID #3 ea 06/24/23 mcg/dose blistr powdr for inhalation (Advair Diskus) furosemide 20 mg tablet See Rx Instructions .Route 06/24/23 .COMPLEX #135 tabs ipratropium 20 mcg-albuterol 100 1 puff inhalation QID #12 grams 06/24/23 mcg/actuation mist for inhalation (Combivent Respimat) montelukast 10 mg tablet 10 mg PO DAILY #90 tab-caps 06/24/23 cephalexin 500 mg capsule 500 mg PO QID #20 caps 03/19/24 Allergies Allergy/AdvReac Type Severity Reaction Status Date / Time diltiazem Allergy Intermediate LE and Verified 05/29/24 07:39 Facial Edema hydrochlorothiazide Allergy Mild rash Verified 05/29/24 07:39 Sulfa (Sulfonamide Allergy Unknown Other (See Verified 05/29/24 07:39 Antibiotics) Comment) metoprolol AdvReac Intermediate Fluid Verified 05/29/24 07:39 Retention lisinopril AdvReac Mild did not Verified 05/29/24 07:39 feel well General Stated Complaint: SOB KAYCE: 1 Review of Systems All systems reviewed & are unremarkable except as noted in HPI and below Constitutional Constitutional: Denies chills, Denies fever(s) and Denies weakness Cardiovascular Cardiovascular: Denies chest pain and Reports dyspnea Respiratory Respiratory: Reports cough and Reports dyspnea Gastrointestinal Gastrointestinal: Denies abdominal pain, Denies nausea and Denies vomiting Integumentary/Breasts Skin/Breast: Denies rash Neurologic Neurologic: Denies weakness Exam Const Orientation: alert [facility] Head: normal to inspection Ears: external ears normal General nose exam: external nose normal Mouth: moist mucous membranes Eyes General: appearance normal, both eyes and all related structures Neck Neck: normal visual inspection Resp Auscultation: diminished lung sounds Cardio Jugular venous pressure: no JVD Rate: regular rate Skin General skin exam: no rashes or lesions noted Neuro General: patient alert and patient oriented x3 Extrem General: normal to inspection Psych Mental Status: mental status grossly normal Course Vital Signs Vital signs: Vital Signs Temperature 36.6 C 05/29/24 06:50 Pulse 89 05/29/24 06:50 Respiratory Rate 26 H 05/29/24 06:50 Blood Pressure 159/64 H 05/29/24 06:50 Pulse Oximetry 69 L 05/29/24 06:50 Temperature 36.6 C 05/29/24 06:50 Temperature Source Skin 05/29/24 06:50 Pulse 89 05/29/24 06:50 Respiratory Rate 26 H 05/29/24 06:50 Blood Pressure 159/64 H 05/29/24 06:50 Pulse Oximetry 69 L 05/29/24 06:50 Oxygen Delivery Method Room Air 05/29/24 06:50 Oxygen Flow Rate 0 05/29/24 06:50 Pain Level 10 05/29/24 06:50 Comment back pain 05/29/24 06:50 Medical Decision Making 73-year-old female with a history of COPD, prior CVA, hypertension, who comes in with 2 to 3 weeks of upper back pain and difficulty breathing. She also notes an increased cough. She has noted to be hypoxic in the 60s on arrival on room air but on 2 L nasal cannula goes to the low 90s. She is able speak in 4-5 word sentences, has diminished lung sounds bilaterally with apical wheezing bilaterally. No JVD, does have some mild pitting edema up to the mid tibia. She is not sure if the edema is new or not. Soft nontender abdomen. Suspect COPD exacerbation but l Given her age and hypoxia will obtain VBG, CBC, CMP, troponin and if her renal function is adequate obtain CTA of the chest to evaluate for PE. She localizes the pain to the upper mid back, she has no pal pable or visible deformities and is reproducible on exam. Suspect musculoskeletal back pain no findings on history or exam to suggest entities such as spinal epidural abscess and has equal peripheral pulses and no chest pain so doubt dissection abs unremarkable, patient feels better after 2 nebs, does have improved lung sounds with continuous wheezing bilaterally. CTA shows bilateral infiltrates. Ceftriaxone and doxycycline ordered for coverage of community-acquired pneumonia. Will discuss with hospitalist about admission given patient continues to be hypoxic without oxygen. Differential Diagnosis Differential Diagnosis: COPD, CHF, pneumonia, PE Medical Records Medical records reviewed: Yes I reviewed the patient's medical records. Imaging Data Radiologic Study: Attestation: I personally reviewed and interpreted this imaging study as follows: Imaging: CT Scan Radiologist's impression: IMPRESSION: 1. No evidence of acute pulmonary emboli. No evidence of pulmonary infarction.No pleural effusions. 2. However, when compared to the prior CT scan of April 2022 there is persistent right upper lobe infiltrate as well as new infiltrate in the right lower lobe both in the superior segment of the right lower lobe and in the basal segments as described above. There is also some new infiltrate in the superior segment of the left lower lobe, anterior segment of the left upper lobe and in the posterior basal segment of the left lower lobe. There is mild subcarinal adenopathy. Although the above findings may be infectious etiology, neoplasm cannot be excluded here. Close follow-up recommended to rule out neoplasm 3. No evidence of aortic dissection nor pericardial effusion. Lab Data Lab results reviewed: Yes I reviewed the patient's lab results. ECG Data Attestation: I personally reviewed and interpreted this ECG (s) as follows: Prior ECG tracings: available for review Interpretation: Sinus rhythm, rate of 93, no STEMI, motion artifact Quality:SDOH Health Related Social Needs: No Data to Display PFSH All Active Problems (Updated 05/29/24 @ 09:13 by Trav Resendez MD) CAP (community acquired pneumonia) (Acute) COPD exacerbation (Acute) Acute respiratory failure with hypoxia (Acute) Do not intubate, perform CPR, or defibrillate (Acute) CHF (congestive heart failure) (Chronic) Cervical arthritis with myelopathy (Acute) Acute exacerbation of chronic obstructive pulmonary disease (COPD) (Acute) Arthritis (Acute 02/10/13) Osteoporosis (Acute 01/14/08) Tachycardia (Chronic) HTN (hypertension) (Chronic) GERD (gastroesophageal reflux disease) (Chronic) Medical History Abnormal chest CT Acute on chronic diastolic CHF (congestive heart failure) Acute on chronic respiratory failure with hypoxia and hypercapnia CAP (community acquired pneumonia) Chronic obstructive lung disease h/o tobacco use, quit 2008 COVID-19 -associated with COPD exacerbation COVID-19 GERD (gastroesophageal reflux disease) HTN (hypertension) Parotid mass Resolved after 3 months without intervention Tobacco dependence due to cigarettes Quit smoking when she was 59 years old Surgical History Endoscopic Carpal Tunnel release (03/31/13) Left 7.2.13 Family History (Updated 06/24/23 @ 13:35 by Maty Torres) Mother Essential hypertension Hyperlipidemia Adopted Dementia Father Heart disease Neoplasm LUNG Lung cancer Sister No problems noted. Sister No problems noted. Brother No problems noted. Brother No problems noted. Maternal Grandfather Stroke Paternal Grandfather Heart disease Maternal Grandmother Heart disease Paternal Grandmother Stroke Son Diabetes Essential hypertension Daughter No problems noted. Social History Smoking/Tobacco Use Status: Former Tobacco Use tobacco type: cigarettes Quit Date: 02/02/00 Tobacco: How many years used: 50 Second Hand Exposure: Yes Smoking risk assessment performed?: Yes Alcohol Intake: never Drug use: Never Substance use type: does not use Counseling given: No Counseling provided: none Caregiver/Support person: No Household members: family Communication Needs: None Do you need help understanding health information?: Never Pets and animals: Yes Pets and animals: dog(s) Sexually active: No Do you think of yourself as: straight/heterosexual Current gender identity: female What is your relationship status?: How often do you talk on the phone with friends or family?: three or more times per week How often do you get together with friends or relatives?: three or more times per week Do you belong to any clubs or organized social groups?: no Panel score (0-1 are the most socially isolated patients): 1 What type of physical activity do you participate in: none Special juan needs: No Seatbelt use: sometimes Helmet use: No Drive intox or ride w/intox dray driver: No Do you feel safe at home: Yes Do you feel safe in your relationship?: Yes
[2024-05-29 07:19] LABS: Abs Immature Grans 0.03 10^3/uL (0.0-0.06); Absolute Basophil Count 0.07 10^3/uL (0.0-0.2); Absolute Eosinophil Count 0.33 10^3/uL (0.0-0.7); Absolute Lymphocyte Count 0.58 10^3/uL (1.2-3.4); Absolute Monocyte Count 0.73 10^3/uL (0.1-0.8); Absolute Neutrophil Count 5.73 10^3/uL (1.2-6.7); BE (Venous) 5 mmol/L (-2-3); Basophils % 0.9 %; Eosinophils % 4.4 %; HCO3 (Venous) 31 mmol/L (23-28); HCT 38.7 % (36.0-46.0); HGB 11.1 g/dL (11.2-15.7); Immature Grans % 0.4 %; Lymphocytes % 7.8 %; MCH 24.8 pg (27.0-33.0); MCHC 28.7 % (32.0-36.0); MCV 86 fL (80-95); MPV 9.6 fL (8.0-11.0); Monocytes % 9.8 %; Neutrophils % 76.7 %; O2 Sat (Venous) 87 %; Platelet Count 342 10^3/uL (130-400); RBC 4.48 10^6/uL (3.93-5.22); RDW 16.5 % (11.7-14.6); RDW-SD 52.5 fL; TCO2 (Venous) 29 mmol/L (24-29); WBC 7.47 10^3/uL (4.4-10.8); pH (Venous) 7.31 (7.31-7.41); pO2 (Venous) 59 mmHg
[2024-05-29 07:20] LABS: pCO2 (Venous) 62 mmHg (41-51)
[2024-05-29] MEDS: Normal Saline Flush 10 ML SYR IVP ×6 (07:24→23:56)
[2024-05-29] MEDS: methylPREDNISolone SUCC 125 MG VIAL IVP (07:24)
[2024-05-29] MEDS: Albuterol/Ipratropium 3 ML UPD VIAL UPD ×5 (07:27→23:53)
[2024-05-29 07:43] LABS: ALT 17 U/L (14-59); AST 12 U/L (15-37); Albumin 3.3 g/dL (3.4-5.0); Alkaline Phosphatase 117 U/L (46-116); Anion Gap 5.6 mmol/L (3-11); BUN 13 mg/dL (7-18); Bilirubin, Total 0.25 mg/dL (0.2-1.0); CO2 31.4 mmol/L (21.0-32.0); Calcium 9.1 mg/dL (8.5-10.1); Chloride 98 mmol/L (98-107); Estimated GFR 59.12 (mL/min/1.73m2); Glucose 117 mg/dL (74-106); Magnesium 1.7 mg/dL (1.8-2.4); NT-proBNP 3751 pg/mL (<300); Potassium 4.5 mmol/L (3.5-5.1); Sodium 135 mmol/L (136-145); Total Protein 7.7 g/dL (6.4-8.2); Troponin I < 50 ng/L (< or =60)
--- NOTE | 2024-05-29 07:45 | DI.CT_ITS ---
Exam(s) CT CHEST PE CTA EXAM: CT CHEST PE CTA CLINICAL HISTORY: dyspnea, hypoxia. TECHNIQUE: Imaging Protocol: CT angiography of the chest was performed using pulmonary embolus sherly col. Multi planar reconstructions were performed. CONTRAST MATERIAL: Intravenous: Omnipaque 350 Contrast volume: 100 cc COMPARISON: CR,XR XR PORTABLE CHEST AP from 05/25/[address] CHEST PE CTA from 05/30/2022 FINDINGS: CHEST: PULMONARY ARTERIES: There are no intraluminal filling defects to suggest acute pulmonary emboli. LUNGS: There is persistent right upper lobe infiltrate which appears relatively similar to prior CT s can 2 years ago (05/30/2022). However, there is also now significant new area of infiltrate in the s uperior segment of the right lower lobe which was not previously present. Also subpleural infiltrate lower down also noted in the right lower lobe, not previously present. In addition, in the posterio r basal segment of the right lower lobe there is pleural based enhancing infiltrate measuring approxi mately 3.7 cm wide by 1.1 cm AP.. In the opposite-left lung there is some scarring in the sub apical aspect of the upper lobe. There is a nodular infiltrate in the superior segment of the left lower l obe. Also some new nodular infiltrate anteriorly in the left upper lobe/superior lingular segment. Inferior lingular segment appears unremarkable. There is also some pleural based infiltrate in the p osterior basal segment of the left lower lobe. There are no pleural effusions. No significant focal findings in the trachea and mainstem bronchi. There is no bronchiectasis.. MEDIASTINUM: There is no obvious hilar adenopathy. There is mild subcarinal adenopathy. CARDIAC: Heart size is minimally prominent. There is no pericardial effusion.Caliber of the thoracic aorta is within normal limits. No evidence of aortic dissection. There is no significant shift of t he interventricular septum. PARTIALLY VISUALIZED UPPERMOST ABDOMEN: Small 1 cm left adrenal nodule appears relatively stable when compared to 2 years ago. Right adrenal gland unremarkable. OSSEOUS: No significant osseous lesions.No fractures.. IMPRESSION: 1. No evidence of acute pulmonary emboli. No evidence of pulmonary infarction.No pleural effusions. 2. However, when compared to the prior CT scan of April 2022 there is persistent right upper lobe in filtrate as well as new infiltrate in the right lower lobe both in the superior segment of the right lower lobe and in the basal segments as described above. There is also some new infiltrate in the morales perior segment of the left lower lobe, anterior segment of the left upper lobe and in the posterior b james segment of the left lower lobe. There is mild subcarinal adenopathy. Although the above findings may be infectious etiology, neoplasm cannot be excluded here. Close foll ow-up recommended to rule out neoplasm 3. No evidence of aortic dissection nor pericardial effusion. Report called by myself to ER physician 05/29/2024 at 9:02 a.m. RADIATION DOSE DELIVERED: 108.27mGy.cm Total DLP DATA REPOSITORY: All CT scans at this facility are submitted to the National Radiology Data Registry (NRDR) Dose Index Registry (DIR) with the [employer] (ACR). RADIATION OPTIMIZATION: All CT scans at this facility use at least one of these dose optimization te chniques: automated exposure control; mA and/or kV adjustment per patient size (includes targeted exa ms where dose is matched to clinical indication); or iterative reconstruction.
[2024-05-29 07:48] LABS: PTT Activated 29.2 sec (23.6-32.8); Prothrombin Time 9.8 sec (9.1-11.1)
[2024-05-29 07:52] LABS: Procalcitonin < 0.1 ng/mL
[2024-05-29 07:55] LABS: COVID-19 PCR Negative (Negative); Influenza A PCR Negative (Negative); Influenza B PCR Negative (Negative); RSV PCR Negative (Negative)
[2024-05-29 08:01] LABS: Source Nasopharynx
[2024-05-29] MEDS: MAGNESIUM SULFATE 1 GM/100 ML BAG IVINF (08:06)
[2024-05-29] MEDS: Normal Saline - Diluent 50 ML VIAL IJ (08:25)
[2024-05-29] MEDS: Omnipaque 350 MG/ML 100 ML BTL IJ (08:26)
[2024-05-29] MEDS: cefTRIAXone 2 GM/50 ML BAG IVPB (08:50)
[2024-05-29] MEDS: DOXYCYCLINE 100 MG in Normal Saline 100 ML IVPB ×2 (09:26→20:14)
--- NOTE | 2024-05-29 10:22 | W.PC.ACHO ---
Registration Status: Primary Language: Preferred Language: ED Information & Data Chief Complaint SOB 05/29/24 08:16 Chief Complaint SOB 05/29/24 07:07 Triage Note 3-4 weeks of increasing 05/29/24 06:50 dyspnea. uses Bi-Pap at home . has been using her inhalers. states her back went out 2 weeks ago - taking tylenol. hasn't been sleeping well or eating well . hx COPD. quit smoking at age 59. does not have home oxygen. Medical / Surgical History (Last Reviewed 06/13/22 @ 09:21 by Deven Roberto NP) COVID-[address] Tobacco dependence due to cigarettes COVID-19 Parotid mass Acute on chronic respiratory failure with hypoxia and hypercapnia Acute on chronic diastolic CHF (congestive heart failure) Chronic obstructive lung disease CAP (community acquired pneumonia) GERD (gastroesophageal reflux disease) HTN (hypertension) (Last Reviewed 06/13/22 @ 09:21 by Deven Roberto NP) Endoscopic Carpal Tunnel release (03/31/13) Most Recent Vital Signs Temperature 36.4 C L 05/29/24 09:40 Temperature Source Oral 05/29/24 09:40 Pulse 73 05/29/24 09:31 Pulse 84 05/29/24 09:31 Respiratory Rate 34 H 05/29/24 09:31 Respiratory Effort Short of Breath, Incrsd Work of Breathing 05/29/24 08:43 Respiratory Pattern Tachypnea 05/29/24 08:43 Blood Pressure 139/46 L 05/29/24 09:31 Blood Pressure Mean 79 05/29/24 09:31 Pulse Oximetry 93 05/29/24 09:31 Oxygen Delivery Method Nasal Cannula 05/29/24 09:20 Oxygen Flow Rate 3 05/29/24 09:20 Pain Level 10 05/29/24 08:41 Comment back pain 05/29/24 08:41 Allergies lorazepam (From Ativan) Allergy (Severe, Verified 05/29/24 09:34) Anaphylaxis diltiazem Allergy (Intermediate, Verified 05/29/24 07:39) LE and Facial Edema hydrochlorothiazide Allergy (Mild, Verified 05/29/24 07:39) rash Sulfa (Sulfonamide Antibiotics) Allergy (Unknown, Verified 05/29/24 07:39) Other (See Comment) metoprolol Adverse Reaction (Intermediate, Verified 05/29/24 07:39) Fluid Retention lisinopril Adverse Reaction (Mild, Verified 05/29/24 07:39) did not feel well Active Medications Generic Name Dose Route Start Last Admin Trade Name Mary Alice PRN Reason Stop Dose Admin Doxycycline Hyclate 100 mg/ 100 mls @ 100 mls/hr 05/29/24 20:00 05/29/24 09:52 Sodium Chloride IVPB Not Given Q12H WALTER Sodium Chloride 0 ml 05/29/24 07:01 05/29/24 07:24 Normal Saline Flush 10 Ml Syr IVP 10 ml PRN PRN Administration Sodium Chloride 0 ml 05/29/24 08:30 05/29/24 08:34 Normal Saline Flush 10 Ml Syr IVP Not Given BID WALTER IV IV Catheter Type [Right Saline Lock Antecubital] IV Catheter Type [Right Saline Lock Forearm] IV Catheter Gauge [Right 18 Antecubital] IV Catheter Gauge [Right 18 Forearm] Diet Orders Category Date Time Status Heart Healthy Eating [DIET] Nutrition 05/29/24 Lunch Active Diagnostics 05/29/24 05/29/24 05/29/24 Range/Units 10:01 07:27 07:15 WBC 7.47 (4.4-10.8) 10^3/uL RBC 4.48 (3.93-5.22) 10^6/uL Hgb 11.1 L (11.2-15.7) g/dL Hct 38.7 (36.0-46.0) % MCV 86 (80-95) fL MCH 24.8 L (27.0-33.0) pg MCHC 28.7 L (32.0-36.0) % RDW 16.5 H (11.7-14.6) % Plt Count 342 (130-400) 10^3/uL MPV 9.6 (8.0-11.0) fL Immature Gran % 0.4 % Neutrophils % 76.7 % Lymphocytes % 7.8 % Monocytes % 9.8 % Eosinophils % 4.4 % Basophils % 0.9 % Nucleated RBC % 0.0 (0.0-0.3) % Absolute Neutrophils 5.73 (1.2-6.7) 10^3/uL Absolute Lymphocytes 0.58 L (1.2-3.4) 10^3/uL Absolute Monocytes 0.73 (0.1-0.8) 10^3/uL Absolute Eosinophils 0.33 (0.0-0.7) 10^3/uL Absolute Basophils 0.07 (0.0-0.2) 10^3/uL PT 9.8 (9.1-11.1) sec INR 1.0 (0.9-1.1) APTT 29.2 (23.6-32.8) sec VBG pH 7.31 (7.31-7.41) VBG pCO2 62 H* (41-51) mmHg VBG pO2 59 mmHg VBG HCO3 31 H (23-28) mmol/L VBG Total CO2 29 (24-29) mmol/L VBG O2 Saturation 87 % VBG Base Excess 5 H (-2-3) mmol/L Sodium 135 L (136-145) mmol/L Potassium 4.5 (3.5-5.1) mmol/L Chloride 98 (98-107) mmol/L Carbon Dioxide 31.4 (21.0-32.0) mmol/L Anion Gap 5.6 (3-11) mmol/L BUN 13 (7-18) mg/dL Creatinine 1.0 (0.55-1.02) mg/dL Est GFR (CKD-EPI 2020) 59.12 (mL/min/1.73m2) Glucose 117 H (74-106) mg/dL Calcium 9.1 (8.5-10.1) mg/dL Magnesium 1.7 L (1.8-2.4) mg/dL Total Bilirubin 0.25 (0.2-1.0) mg/dL AST 12 L (15-37) U/L ALT 17 (14-59) U/L Alkaline Phosphatase 117 H (46-116) U/L Troponin I Pending < 50 (< or =60) ng/L NT-Pro-B Natriuret Pep 3751 H (<300) pg/mL Total Protein 7.7 (6.4-8.2) g/dL Albumin 3.3 L (3.4-5.0) g/dL Procalcitonin < 0.1 ng/mL Digoxin 0.70 L (0.90-2.00) ng/mL COVID-19 Source SARS-CoV-2 (PCR) (Negative) Influenza Type A (PCR) (Negative) Influenza Type B (PCR) (Negative) RSV (PCR) (Negative) 05/29/24 Range/Units 07:06 WBC (4.4-10.8) 10^3/uL RBC (3.93-5.22) 10^6/uL Hgb (11.2-15.7) g/dL Hct (36.0-46.0) % MCV (80-95) fL MCH (27.0-33.0) pg MCHC (32.0-36.0) % RDW (11.7-14.6) % Plt Count (130-400) 10^3/uL MPV (8.0-11.0) fL Immature Gran % % Neutrophils % % Lymphocytes % % Monocytes % % Eosinophils % % Basophils % % Nucleated RBC % (0.0-0.3) % Absolute Neutrophils (1.2-6.7) 10^3/uL Absolute Lymphocytes (1.2-3.4) 10^3/uL Absolute Monocytes (0.1-0.8) 10^3/uL Absolute Eosinophils (0.0-0.7) 10^3/uL Absolute Basophils (0.0-0.2) 10^3/uL PT (9.1-11.1) sec INR (0.9-1.1) APTT (23.6-32.8) sec VBG pH (7.31-7.41) VBG pCO2 (41-51) mmHg VBG pO2 mmHg VBG HCO3 (23-28) mmol/L VBG Total CO2 (24-29) mmol/L VBG O2 Saturation % VBG Base Excess (-2-3) mmol/L Sodium (136-145) mmol/L Potassium (3.5-5.1) mmol/L Chloride (98-107) mmol/L Carbon Dioxide (21.0-32.0) mmol/L Anion Gap (3-11) mmol/L BUN (7-18) mg/dL Creatinine (0.55-1.02) mg/dL Est GFR (CKD-EPI 2020) (mL/min/1.73m2) Glucose (74-106) mg/dL Calcium (8.5-10.1) mg/dL Magnesium (1.8-2.4) mg/dL Total Bilirubin (0.2-1.0) mg/dL AST (15-37) U/L ALT (14-59) U/L Alkaline Phosphatase (46-116) U/L Troponin I (< or =60) ng/L NT-Pro-B Natriuret Pep (<300) pg/mL Total Protein (6.4-8.2) g/dL Albumin (3.4-5.0) g/dL Procalcitonin ng/mL Digoxin (0.90-2.00) ng/mL COVID-19 Source Nasopharynx SARS-CoV-2 (PCR) Negative (Negative) Influenza Type A (PCR) Negative (Negative) Influenza Type B (PCR) Negative (Negative) RSV (PCR) Negative (Negative) 05/29/24 09:17 Blood Culture - Pending Blood 05/29/24 09:17 Blood Culture - Pending Blood Intake and Output - 24 Hour Total 05/29/24 06:48 thru 05/29/24 09:22 Intake Total 160 Balance 160 Weight 67 kg Intake: IV 160 Falls Risk Assessment History of Falls No History 05/29/24 08:15 Contributing Factors No Factors 05/29/24 08:15 Ambulatory Aids Independent 05/29/24 08:15 Tubes/Lines None 05/29/24 08:15 Gait Evaluation No gait disturbance 05/29/24 08:15 Cognition No cognitive impairment 05/29/24 08:15 Fall Total Score 0 05/29/24 08:15 Level of Risk Standard/Low Risk 05/29/24 08:15 Problems (Last Reviewed 06/13/22 @ 09:21 by Deven Roberto NP) CAP (community acquired pneumonia) (Acute) COPD exacerbation (Acute) Acute respiratory failure with hypoxia (Acute) v v v v v v v v v Sending and/or Receiving Nurses: Please use comment section below to note any information pertinent to the patient hand-off not included above. Information / Comments: Report received from: Marcelle Goncalves
[2024-05-29 11:37] LABS: Troponin I < 50 ng/L (< or =60)
[2024-05-29] MEDS: Enoxaparin 40 MG/0.4 ML SYR SC (13:10)
[2024-05-29] MEDS: Digoxin 0.125 MG TAB PO (13:11)
[2024-05-29] MEDS: amLODIPine 10 MG TAB PO ×2 (13:11→20:16)
[2024-05-29] MEDS: CEFEPIME 2 GM in Normal Saline 100 ML IVPB ×2 (13:12→23:55)
[2024-05-29] MEDS: Montelukast 10 MG TAB PO (13:23)
[2024-05-29] MEDS: Esomeprazole 40 MG CAPCR PO (13:23)
[2024-05-29] MEDS: Acetaminophen 500 MG TAB 1000 MG PO (13:46)
[2024-05-29] MEDS: Furosemide 20 MG TAB 40 MG PO (13:47)
[2024-05-29] MEDS: methylPREDNISolone SUCC 125 MG VIAL 80 MG IVP ×2 (14:27→21:47)
--- NOTE | 2024-05-29 15:20 | HPE_ITS ---
Date of service: 05/29/24 Time of Service: 15:20 Assessment and Plan Assessment and plan (1) Acute exacerbation of chronic obstructive pulmonary disease (COPD): Status: Acute Assessment and plan: Continue doxycycline; discontinue ceftriaxone, start cefepime. O2 requirement down to 2 L at rest, increased with activity. Patient has been hospitalized for this in the past and a lung mass was noted. Patient refuses workup of lung mass and follow up. Continue Combivent, Symbicort, and Spiriva. Sputum culture and blood cultures pending RT cconsult (2) HTN (hypertension): Status: Chronic Assessment and plan: Stable; continue Amlodipine Qualifiers: Hypertension type: essential hypertension Qualified Code(s): I10 - Essential (primary) hypertension (3) CHF (congestive heart failure): Status: Chronic Assessment and plan: HFPEF. Continue furosemide and Digoxin. last echo EF 60% with no significant valvular disease or WMA as read by cardiology Qualifiers: Heart failure type: unspecified Qualified Code(s): I50.9 - Heart failure, unspecified (4) Abnormal chest CT: Assessment and plan: Possible malignancy RUL. This is not new; Patient continues to refuse workup; seen by pulmonlogy. PCP should follow up (5) DVT prophylaxis: Status: Deleted Assessment and plan: SC enoxaparin (6) Discharge planning issues: Status: Deleted Assessment and plan: DNR/DNI Probable need for O2 orders, this would be new but hopefully will be weaned off. Anticipate discharge home tomorrow. History of Present Illness Narrative: A 73-year-old female presented to the emergency department ambulating with a primary complaint of moderate dyspnea that had persisted for two weeks. She described the dyspnea as constant with no known relieving or exacerbating factors. Along with the shortness of breath, she reported a cough but denied chest pain, fever, or chills. Her current medication list included acetaminophen, albuterol sulfate, amlodipine, digoxin, esomeprazole, fluticasone-salmeterol, furosemide, ipratropium-albuterol, montelukast, and cephalexin. She had a history of allergies to diltiazem, hydrochlorothiazide, and sulfa antibiotics, and had experienced adverse reactions to metoprolol and lisinopril. On examination, the patient was alert and oriented. She exhibited diminished lung sounds bilaterally with continuous wheezing but no jugular venous distension or significant skin changes. Her vital signs included a temperature of 36.6?C, a pulse of 89 bpm, a respiratory rate of 26 bpm, and a blood pressure of 159/64 mmHg. Her pulse oximetry reading was critically low at 69% on room air but improved to the low 90s with 2 L of supplemental oxygen. She also reported a pain level of 10, specifically in her back. Due to her age and hypoxia, further testing was conducted, including a VBG, CBC, CMP, troponin, and a CTA of the chest to rule out pulmonary embolism. Imaging results from a CT scan showed no acute pulmonary emboli or pleural effusions but revealed persistent right upper lobe infiltrate and new infiltrates in multiple lung segments. Mild subcarinal adenopathy was noted, suggesting a possible infectious process with neoplasm as a differential diagnosis. She was started on ceftriaxone and doxycycline to cover community-acquired pneumonia. Due to her continued hypoxia despite oxygen therapy, patient was admitted to the medical floor.. Patient states she is DNR/DNI Review of Systems All systems reviewed & are unremarkable except as noted in HPI and below PFSH All Active Problems (Updated 05/29/24 @ 09:13 by Trav Resendez MD) CAP (community acquired pneumonia) (Acute) COPD exacerbation (Acute) Acute respiratory failure with hypoxia (Acute) Do not intubate, perform CPR, or defibrillate (Acute) CHF (congestive heart failure) (Chronic) Cervical arthritis with myelopathy (Acute) Acute exacerbation of chronic obstructive pulmonary disease (COPD) (Acute) Arthritis (Acute 02/10/13) Osteoporosis (Acute 01/14/08) Tachycardia (Chronic) HTN (hypertension) (Chronic) GERD (gastroesophageal reflux disease) (Chronic) Medical History Abnormal chest CT Acute on chronic diastolic CHF (congestive heart failure) Acute on chronic respiratory failure with hypoxia and hypercapnia CAP (community acquired pneumonia) Chronic obstructive lung disease h/o tobacco use, quit 2008 COVID-19 -associated with COPD exacerbation COVID-19 GERD (gastroesophageal reflux disease) HTN (hypertension) Parotid mass Resolved after 3 months without intervention Tobacco dependence due to cigarettes Quit smoking when she was 59 years old Surgical History Endoscopic Carpal Tunnel release (03/31/13) Left 7.2.13 Family History (Updated 06/24/23 @ 13:35 by Maty Torres) Mother Essential hypertension Hyperlipidemia Adopted Dementia Father Heart disease Neoplasm LUNG Lung cancer Sister No problems noted. Sister No problems noted. Brother No problems noted. Brother No problems noted. Maternal Grandfather Stroke Paternal Grandfather Heart disease Maternal Grandmother Heart disease Paternal Grandmother Stroke Son Diabetes Essential hypertension Daughter No problems noted. Social History Smoking/Tobacco Use Status: Former Tobacco Use tobacco type: cigarettes Quit Date: 02/02/00 Tobacco: How many years used: 50 Second Hand Exposure: Yes Smoking risk assessment performed?: Yes Alcohol Intake: never Drug use: Never Substance use type: does not use Counseling given: No Counseling provided: none Caregiver/Support person: No Household members: family Housing: house Communication Needs: None Do you need help understanding health information?: Never Pets and animals: Yes Pets and animals: dog(s) Sexually active: No Do you think of yourself as: straight/heterosexual Current gender identity: female What is your relationship status?: How often do you talk on the phone with friends or family?: three or more times per week How often do you get together with friends or relatives?: three or more times per week Do you belong to any clubs or organized social groups?: no Panel score (0-1 are the most socially isolated patients): 1 What type of physical activity do you participate in: none Special juan needs: No Seatbelt use: sometimes Helmet use: No Drive intox 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 Do you feel safe at home: Yes Do you feel safe in your relationship?: Yes Meds Allergies and Home Medications Allergies Allergy/AdvReac Type Severity Reaction Status Date / Time lorazepam (From Ativan) Allergy Severe Anaphylaxis Verified 05/29/24 09:34 diltiazem Allergy Intermediate LE and Verified 05/29/24 07:39 Facial Edema hydrochlorothiazide Allergy Mild rash Verified 05/29/24 07:39 Sulfa (Sulfonamide Allergy Unknown Other (See Verified 05/29/24 07:39 Antibiotics) Comment) metoprolol AdvReac Intermediate Fluid Verified 05/29/24 07:39 Retention lisinopril AdvReac Mild did not Verified 05/29/24 07:39 feel well Home Medications ?Medication ?Instructions ?Recorded ?Confirmed ?Type acetaminophen 500 mg tablet 1,000 mg PO PRN PRN 10/23/19 05/29/24 History albuterol sulfate 90 mcg/actuation 2 puff inhalation Q6H PRN #8.5 06/07/22 05/29/24 Rx aerosol inhaler grams amlodipine 10 mg tablet 10 mg PO BID #180 tabs 06/24/23 05/29/24 Rx digoxin 125 mcg (0.125 mg) tablet 125 mcg PO QAM #90 tabs 06/24/23 05/29/24 Rx esomeprazole magnesium 40 mg 40 mg PO DAILY #90 caps 06/24/23 05/29/24 Rx capsule,delayed release fluticasone 250 mcg-salmeterol 50 1 inh inhalation BID #3 ea 06/24/23 05/29/24 Rx mcg/dose blistr powdr for inhalation (Advair Diskus) furosemide 20 mg tablet See Rx Instructions .Route 06/24/23 05/29/24 Rx .COMPLEX #135 tabs ipratropium 20 mcg-albuterol 100 1 puff inhalation QID #12 grams 06/24/23 05/29/24 Rx mcg/actuation mist for inhalation (Combivent Respimat) montelukast 10 mg tablet 10 mg PO DAILY #90 tab-caps 06/24/23 05/29/24 Rx Exam Narrative Exam Narrative: General: Sitting up in the recliner leaning forward over the bedside table. She is awake and alert, no acute distress, she is speaking complete sentences with no shortness of breath. HEENT: Normocephalic, atraumatic, pupils equal and round, mucous membranes moist. Neck: Supple, no JVD. Respiratory: Respirations even and unlabored, lung sounds distant, clear throughout, no rales or wheezing. No cough during exam. Cardiovascular: Heart rate sounds regular, rate in the 90s. Gastrointestinal: Abdomen soft, nontender on palpation, normoactive bowel sounds, nondistended. Extremities: No calf swelling, warmth or tenderness. No clubbing or cyanosis. Pedal pulses palpable bilaterally. Results Labs 05/29/24 07:15 05/29/24 07:15 Labs: Laboratory Results - last 24 hr 05/29/24 05/29/24 05/29/24 07:06 07:15 07:27 WBC 7.47 RBC 4.48 Hgb 11.1 L Hct 38.7 MCV 86 MCH 24.8 L MCHC 28.7 L RDW 16.5 H Plt Count 342 MPV 9.6 Immature Gran % 0.4 Neutrophils % 76.7 Lymphocytes % 7.8 Monocytes % 9.8 Eosinophils % 4.4 Basophils % 0.9 Nucleated RBC % 0.0 Absolute Neutrophils 5.73 Absolute Lymphocytes 0.58 L Absolute Monocytes 0.73 Absolute Eosinophils 0.33 Absolute Basophils 0.07 PT 9.8 INR 1.0 APTT 29.2 VBG pH 7.31 VBG pCO2 62 H* VBG pO2 59 VBG HCO3 31 H VBG Total CO2 29 VBG O2 Saturation 87 VBG Base Excess 5 H Sodium 135 L Potassium 4.5 Chloride 98 Carbon Dioxide 31.4 Anion Gap 5.6 BUN 13 Creatinine 1.0 Est GFR (CKD-EPI 2020) 59.12 Glucose 117 H Calcium 9.1 Magnesium 1.7 L Total Bilirubin 0.25 AST 12 L ALT 17 Alkaline Phosphatase 117 H Troponin I < 50 NT-Pro-B Natriuret Pep 3751 H Total Protein 7.7 Albumin 3.3 L Procalcitonin < 0.1 Digoxin 0.70 L COVID-19 Source Nasopharynx SARS-CoV-2 (PCR) Negative Influenza Type A (PCR) Negative Influenza Type B (PCR) Negative RSV (PCR) Negative 05/29/24 11:11 WBC RBC Hgb Hct MCV MCH MCHC RDW Plt Count MPV Immature Gran % Neutrophils % Lymphocytes % Monocytes % Eosinophils % Basophils % Nucleated RBC % Absolute Neutrophils Absolute Lymphocytes Absolute Monocytes Absolute Eosinophils Absolute Basophils PT INR APTT VBG pH VBG pCO2 VBG pO2 VBG HCO3 VBG Total CO2 VBG O2 Saturation VBG Base Excess Sodium Potassium Chloride Carbon Dioxide Anion Gap BUN Creatinine Est GFR (CKD-EPI 2020) Glucose Calcium Magnesium Total Bilirubin AST ALT Alkaline Phosphatase Troponin I < 50 NT-Pro-B Natriuret Pep Total Protein Albumin Procalcitonin Digoxin COVID-19 Source SARS-CoV-2 (PCR) Influenza Type A (PCR) Influenza Type B (PCR) RSV (PCR) Last Vital Signs Temp 36.9 C 08/30/24 14:45 Pulse 88 05/29/24 14:45 Resp 20 05/29/24 14:45 BP 111/81 05/29/24 14:45 Pulse Ox 94 05/29/24 14:45 Time Spent Time spent with Patient: 40-54 minutes Time was spent: preparing to see the patient(eg.review tests), obtaining and/or reviewing separately otained hiistory, ordering medications,tests, procedures, referring, communicating with other health overnight caregiver, indepentently interpreting results, counseling the patient and care coordination
--- NOTE | 2024-05-29 18:53 | RESPIRATORY ---
Pt's own [employer] 150 iVAPS machine. Target Rate: 15 Target Va: 4.0 L/min Min PS: 5 Max PS: 20 EPAP: 5 Set to Pt height of 64 MV: 5.5 Avg Vt: 364 Ti Min: 0.20 Ti Max: 1.50 Nasal Pillows: Medium No humidity No O2 bleed in at baseline DME: [facility] [facility]
[2024-05-29] MEDS: guaiFENesin 600 MG TABCR PO (20:16)
[2024-05-29] MEDS: Budesonide/Formoterol 160/4.5 6 GM 60 PUFF INH IH (21:17)
[2024-05-30] VITALS (10 sets, daily range): BP systolic 119–130; BP diastolic 51–67; PULSE 72–98; RESP 2–20; TEMP 36.2–37.1; O2SAT 88–97
[2024-05-30] MEDS: Acetaminophen 500 MG TAB 1000 MG PO ×3 (00:32→19:52)
[2024-05-30] MEDS: Normal Saline Flush 10 ML SYR IVP ×4 (00:58→21:34)
[2024-05-30] MEDS: Albuterol/Ipratropium 3 ML UPD VIAL UPD ×3 (05:56→17:48)
[2024-05-30] MEDS: methylPREDNISolone SUCC 125 MG VIAL 80 MG IVP ×2 (05:59→12:43)
[2024-05-30] MEDS: DOXYCYCLINE 100 MG in Normal Saline 100 ML IVPB ×2 (07:19→19:47)
[2024-05-30] MEDS: Esomeprazole 40 MG CAPCR PO (07:20)
[2024-05-30 07:48] LABS: Abs Immature Grans 0.04 10^3/uL (0.0-0.06); Absolute Basophil Count 0.01 10^3/uL (0.0-0.2); Absolute Lymphocyte Count 0.25 10^3/uL (1.2-3.4); Absolute Monocyte Count 0.06 10^3/uL (0.1-0.8); Absolute Neutrophil Count 5.93 10^3/uL (1.2-6.7); Basophils % 0.2 %; HCT 36.4 % (36.0-46.0); HGB 10.5 g/dL (11.2-15.7); Immature Grans % 0.6 %; MCH 24.9 pg (27.0-33.0); MCHC 28.8 % (32.0-36.0); MCV 87 fL (80-95); MPV 9.8 fL (8.0-11.0); Neutrophils % 94.2 %; Platelet Count 333 10^3/uL (130-400); RBC 4.21 10^6/uL (3.93-5.22); RDW 16.7 % (11.7-14.6); RDW-SD 52.6 fL; WBC 6.29 10^3/uL (4.4-10.8)
[2024-05-30 07:50] LABS: Anion Gap 4.2 mmol/L (3-11); BUN 18 mg/dL (7-18); CO2 30.8 mmol/L (21.0-32.0); CREATININE 1.2 mg/dL (0.55-1.02); Calcium 9.1 mg/dL (8.5-10.1); Chloride 97 mmol/L (98-107); Glucose 170 mg/dL (74-106); Magnesium 1.9 mg/dL (1.8-2.4); Potassium 4.5 mmol/L (3.5-5.1); Sodium 132 mmol/L (136-145)
[2024-05-30] MEDS: Budesonide/Formoterol 160/4.5 6 GM 60 PUFF INH IH ×2 (07:59→19:41)
[2024-05-30] MEDS: Digoxin 0.125 MG TAB PO (08:39)
[2024-05-30] MEDS: Furosemide 20 MG TAB PO (08:40)
[2024-05-30] MEDS: amLODIPine 10 MG TAB PO ×2 (08:40→19:51)
[2024-05-30] MEDS: guaiFENesin 600 MG TABCR PO ×2 (08:40→19:51)
[2024-05-30] MEDS: Montelukast 10 MG TAB PO (08:40)
--- NOTE | 2024-05-30 09:25 | W.PM.PROGNOT ---
Date of Service Date of service: 05/30/24 Time of Service: 09:26 Assessment and Plan Assessment and plan (1) Acute exacerbation of chronic obstructive pulmonary disease (COPD): Status: Acute Assessment and plan: Continue doxycycline and cefepime O2 requirement down to 2 L at rest, increased with activity. Patient has been hospitalized for this in the past and a lung mass was noted; Pulmonary consult in the past has been refused Continue hold home Combivent,on duonebs now, Symbicort, and Spiriva. Might not need Combivent at home but will defer to PCP Sputum culture and blood cultures pending RT consult : home CPAP setting completed / Home O2 needs- O2 weaning as meuch as possible; patient has been refractory to the idea of home oxygen in the past (2) HTN (hypertension): Status: Chronic Assessment and plan: VSS On home dose Amlodipine Qualifiers: Hypertension type: essential hypertension Qualified Code(s): I10 - Essential (primary) hypertension (3) CHF (congestive heart failure): Status: Chronic Assessment and plan: HFpEF with last LVEF 60% w/o wall motion abnormality or significant valvular disease Continue furosemide and Digoxin. Qualifiers: Heart failure type: unspecified Qualified Code(s): I50.9 - Heart failure, unspecified (4) Abnormal chest CT: Assessment and plan: Possible malignancy RUL. Patient has refused work-up in the past Seen by pulmonlogy in 2021 Follow up as per PCP (5) DVT prophylaxis: Status: Deleted Assessment and plan: Continue LMWH SC (6) Discharge planning issues: Status: Deleted Assessment and plan: Considering home oxygen if needed and agreed upon by patient Wean off if possible . discharge when medically ready with prednisone taper and oral antibiotics Discussed with Dr. Greene Subjective Subjective Patient reports: no new complaints, feels better, tolerating liquids well, tolerating a regular diet, voiding w/o difficulty, bowel movement, shortness of breath and other (non-productive cough); denies nausea, vomiting or fever Exam Narrative Exam Narrative: Neuro:alert and oriented to self, person, place time and situation. No neurological focal deficit Resp: Clear lung bilaterally- diminished bases Cardio: regular rhythm, S1, S2, no murmur, capillary refill<3 sec., bilateral radial and dorsalis pedis pulses are positive GI: Abdomen is not distended, soft and non tender, bowel sounds are present : Negative Costovertebral angle tenderness Back/spine/Pelvis: No back tenderness, normal alignment Integumentary: No skin lesions or rash on exposed skin Extremities: strength 5/5 to bilateral lower and upper extremities Psych: RASS 0, congruent mood and normal affect. Objective Last Vital Signs Temp 37.1 C 05/30/24 07:46 Pulse 98 H 05/30/24 07:46 Resp 19 05/30/24 07:46 BP 128/61 05/30/24 07:46 Pulse Ox 91 L 05/30/24 07:46 Laboratory Results - last 24 hr 05/29/24 05/30/24 11:11 07:00 WBC 6.29 RBC 4.21 Hgb 10.5 L Hct 36.4 MCV 87 MCH 24.9 L MCHC 28.8 L RDW 16.7 H Plt Count 333 MPV 9.8 Immature Gran % 0.6 Neutrophils % 94.2 Lymphocytes % 4.0 Monocytes % 1.0 Eosinophils % 0.0 Basophils % 0.2 Nucleated RBC % 0.0 Absolute Neutrophils 5.93 Absolute Lymphocytes 0.25 L Absolute Monocytes 0.06 L Absolute Eosinophils 0.00 Absolute Basophils 0.01 Sodium 132 L Potassium 4.5 Chloride 97 L Carbon Dioxide 30.8 Anion Gap 4.2 BUN 18 Creatinine 1.2 H Est GFR (CKD-EPI 2020) 47.50 Glucose 170 H Calcium 9.1 Magnesium 1.9 Troponin I < 50 Time Spent with Patient Time Spent with Patient: >50 minutes Time was spent: preparing to see the patient(eg.review tests), obtaining and/or reviewing separately otained hiistory, ordering medications,tests, procedures, referring, communicating with other health critical care educator, indepentently interpreting results, counseling the patient and care coordination
--- NOTE | 2024-05-30 11:54 | PHACLINREV_ITS ---
Pharmacy Admission Review Admission Clinical Review Admission Pharmacy Review: CAP (community acquired pneumonia) (Acute) COPD exacerbation (Acute) Acute respiratory failure with hypoxia (Acute) Acute exacerbation of chronic obstructive pulmonary disease (COPD) (Acute) lorazepam (From Ativan) Allergy (Severe, Verified 05/29/24 09:34) Anaphylaxis diltiazem Allergy (Intermediate, Verified 05/29/24 07:39) LE and Facial Edema hydrochlorothiazide Allergy (Mild, Verified 05/29/24 07:39) rash Sulfa (Sulfonamide Antibiotics) Allergy (Unknown, Verified 05/29/24 07:39) Other (See Comment) metoprolol Adverse Reaction (Intermediate, Verified 05/29/24 07:39) Fluid Retention lisinopril Adverse Reaction (Mild, Verified 05/29/24 07:39) did not feel well Resuscitation Status DNR/DNI Height 5 ft Weight 67.1 kg Comments Comments/Follow Ups: Watch for med changes (renal dose adjustments if needed) Pharmacy Admission Review Renal Dosing Renal Dosing: BUN 18 mg/dL (7-18) 05/30/24 07:00 Creatinine 1.2 mg/dL (0.55-1.02) H 05/30/24 07:00 Medications needing adjustments: Reviewed (CrCl 35.11 mL/min, SCr increased from 1) List of meds needing interventions: Current medications are okay Anticoagulation Anticoagulation: Hgb 10.5 g/dL (11.2-15.7) L 05/30/24 07:00 Hct 36.4 % (36.0-46.0) 05/30/24 07:00 Plt Count 333 10^3/uL (130-400) 05/30/24 07:00 INR 1.0 (0.9-1.1) 05/29/24 07:27 Creatinine 1.2 mg/dL (0.55-1.02) H 05/30/24 07:00 DVT Prophylaxis: Reviewed (hgb decreased from 11.1) Medications: Enoxaparin (40mg daily) Relevant Labs Relevant Labs: Sodium 132 mmol/L (136-145) L 05/30/24 07:00 Potassium 4.5 mmol/L (3.5-5.1) 05/30/24 07:00 Chloride 97 mmol/L (98-107) L 05/30/24 07:00 Magnesium 1.9 mg/dL (1.8-2.4) 05/30/24 07:00 Electrolytes, C-Reactive P, ESR: Reviewed (Na decreased from 135, Mg increased from 1.7, glucose 170) Cardiac Review Cardiac Review: Troponin I < 50 ng/L (< or =60) 05/29/24 11:11 NT-Pro-B Natriuret Pep 3751 pg/mL (<300) H 05/29/24 07:15 BP, HR, EF%: Reviewed (BP WNL, HR 97 - has been elevated all morning) List meds needing interventions: Patient is on amlodipine 10mg BID, digoxin 0.125mg daily and furosemide daily (alternating doses) QTc Review QTc: Reviewed (436 from 05/29/24) IV to PO Switch IV Medications: Reviewed (cefepime, doxycycline and methylprednisolone) Home Meds Home Med List reviewed: Intervened Relevent Home Meds Not ordered & why?: Advair (substituted with Symbicort per p harmacy protocol) and Combivent Reached out to provider regarding Combivent, waiting to hear back Current Meds Current Medication Order Review: Reviewed Pharmacy Antibiotic Review Relevant Labs: WBC 6.29 10^3/uL (4.4-10.8) 05/30/24 07:00 Procalcitonin < 0.1 ng/mL 05/29/24 07:15 Temperature 37.1 C Pharmacy Antibiotic Activity: C/S review and Reviewed, no change Comments: Patient is on doxycycline and cefepime, day 2, for CAP. Blood cultures are pending. Cefepime renally adjusted (2g q12h). Comments Comments/Follow Ups: Watch for med changes (renal dose adjustments if needed)
--- NOTE | 2024-05-30 12:07 | PDOC.CMIN ---
Date of service: 05/30/24 Time of Service: 12:07 Care Management Initial Assmt Initial Assessment Reason for Hospitalization: Pneumonia Functional Status/Living Situation Patient Presentation: Jackie was sitting in a chair watching TV when CM met with her. She is wearing O2 NC which is not her baseline. Town of Residence: [facility] Resides with: Child (Son Vinh Ivy) Significant Other/Family: Local Caregiver/Guardian: None Natural Supports: Son and grandson are very supportive Employment Status: Retired ([employer]) Instrumental Activities of Daily Living (ADLs): Independent Medications Medication Management: No Issues/Barriers identified Physical Functioning/Mobility Assistive Device: Has a walker and cane, uses PRN when her back hurts. Has her own Bi-Pap Advance Directives Advance Directives: Do you have an Advance Directive: Y 02/10/13 10:22 AD On File at [facility]: Y 02/10/13 11:03 Date Asked 02/02/19 05/29/24 10:37 AD Date Reviewed 05/29/24 05/29/24 10:35 COLST On File at [facility] Yes 05/29/24 10:37 COLST Date Scanned 02/05/19 05/29/24 10:37 Code Status Resuscitation Status DNR/DNI Portal Pt does not currently have a portal and education provided: Yes Insurance Coverage/Financial Issues Insurance: Medicare [employer] Financial assistance Financial Issues: None identified Care Team Visit Care Team Role Provider Type Deven Roberto NP Primary Care Provider NURSE PRACTITIONER Trav Resendez MD Emergency Provider [facility] STAFF PHYSICIAN Otilio Greene Admit Provider [facility] STAFF PHYSICIAN Attending Provider Discharge Potential Discharge Needs: PT Evaluation and Other (RT consult, ? New home O2?) Anticipated Barriers to Discharge: Medical Status Patient/Family Education Needs: Review discharge instructions, discuss Ask Me Three Transportation: Private vehicle Plan: Jackie is being treated with IV ABX and steroids and requires O2 NC, which is not her baseline. Anticipate, Jackie will discharge home with new services and/or Home O2, if indicated by PT/RT consults. She will transport via private vehicle with son or RCT when medically ready. PFSH All Active Problems (Updated 05/29/24 @ 09:13 by Trav Resendez MD) CAP (community acquired pneumonia) (Acute) COPD exacerbation (Acute) Acute respiratory failure with hypoxia (Acute) Do not intubate, perform CPR, or defibrillate (Acute) CHF (congestive heart failure) (Chronic) Cervical arthritis with myelopathy (Acute) Acute exacerbation of chronic obstructive pulmonary disease (COPD) (Acute) Arthritis (Acute 02/10/13) Osteoporosis (Acute 01/14/08) Tachycardia (Chronic) HTN (hypertension) (Chronic) GERD (gastroesophageal reflux disease) (Chronic) Medical History Abnormal chest CT Acute on chronic diastolic CHF (congestive heart failure) Acute on chronic respiratory failure with hypoxia and hypercapnia CAP (community acquired pneumonia) Chronic obstructive lung disease h/o tobacco use, quit 2008 COVID-19 -associated with COPD exacerbation COVID-19 GERD (gastroesophageal reflux disease) HTN (hypertension) Parotid mass Resolved after 3 months without intervention Tobacco dependence due to cigarettes Quit smoking when she was 59 years old Surgical History Endoscopic Carpal Tunnel release (03/31/13) Left 7.2.13 Family History (Updated 06/24/23 @ 13:35 by Maty Torres) Mother Essential hypertension Hyperlipidemia Adopted Dementia Father Heart disease Neoplasm LUNG Lung cancer Sister No problems noted. Sister No problems noted. Brother No problems noted. Brother No problems noted. Maternal Grandfather Stroke Paternal Grandfather Heart disease Maternal Grandmother Heart disease Paternal Grandmother Stroke Son Diabetes Essential hypertension Daughter No problems noted. Social History Smoking/Tobacco Use Status: Former Tobacco Use tobacco type: cigarettes Quit Date: 02/02/00 Tobacco: How many years used: 50 Second Hand Exposure: Yes Smoking risk assessment performed?: Yes Alcohol Intake: never Drug use: Never Substance use type: does not use Counseling given: No Counseling provided: none Caregiver/Support person: No Household members: family Housing: house Communication Needs: None Do you need help understanding health information?: Never Pets and animals: Yes Pets and animals: dog(s) Sexually active: No Do you think of yourself as: straight/heterosexual Current gender identity: female What is your relationship status?: How often do you talk on the phone with friends or family?: three or more times per week How often do you get together with friends or relatives?: three or more times per week Do you belong to any clubs or organized social groups?: no Panel score (0-1 are the most socially isolated patients): 1 What type of physical activity do you participate in: none Special juan needs: No Seatbelt use: sometimes Helmet use: No Drive intox or ride w/intox street flusher driver: No Do you feel safe at home: Yes Do you feel safe in your relationship?: Yes SDOH(Care Management) Screening Will the Patient Participate in the Screening?: Yes Do you worry about having a steady place to live?: no Problems where you live: pests such as bugs, ants or mice In the past 12 months, have you had to go without electric, gas, oil or water in your home?: no Have you or anyone in your house had to go without enough food to eat?: no Has lack of transportation kept you from medical appointments or from doing things needed for daily living?: no Has anyone in your support network made you feel unsafe for any reason?: no Health Related Social Needs Health related social needs: inadequate housing(Z59.1) Health related social needs details: lives with son
[2024-05-30] MEDS: Enoxaparin 40 MG/0.4 ML SYR SC (12:45)
[2024-05-30] MEDS: CEFEPIME 2 GM in Normal Saline 100 ML IVPB (12:46)
--- NOTE | 2024-05-30 20:35 | RESPIRATORY ---
Addendum entered by Darwin Quintana 05/30/24 20:48: Pt. states that she uses Advair Diskus BID, Combivent QID, Duoneb PRN regularly. Currently requiring 1.5 LPM of Oxygen, Pt. does not use Oxygen at baseline currently per Pt. Original Note: RT Initial Evalutation/Assessment Start: 05/30/24 18:29 Freq: .q shift and prn Status: Active Protocol: Document 05/30/24 19:41 RT.[email or web address] (Rec: 05/30/24 19:55 [id number]) RT Assessment Pulmonary History Pulmonary History COPD Smoking History Smoking/Tobacco Use Status Former Tobacco Use Tobacco: How many years used 50 Quit Date 09/30/13 Tobacco Type cigarettes Packs per Day 2 Years smoked 50 OXYGEN HISTORY: Supplemental O2 At Rest 1.5 Trilogy/AVAPS Can use home machine Yes DME/Compliance DME Reliable Respiratory Current Respiratory Symptoms Current Respiratory Symptoms Cough,Shortness of breath, Wheezing Activity Activity Level very active, pt. states does home chores independently. Respiratory Breath Sounds Breath Sounds Faint wheezing or rhonci, decreased sounds throughout Response No change Pulse Rate <100 Respiratory Rate <18 Shortness of Breath On exertion Respiratory Therapy Score Total 3 Assessment and Plan RT Treatment Protocol Bronchodilator Aerosol Therapy Protocol,No RT treatment protocols required at this time, re-consult if change Note Continue Home Regimen. Pt. states uses Combivent QID, Advair discus BID. Currently requiring 1.5LPM of oxygen.
[2024-05-31] VITALS (14 sets, daily range): BP systolic 123–129; BP diastolic 59–65; PULSE 90–100; RESP 2–18; TEMP 36.4–36.7; O2SAT 74–95
[2024-05-31] MEDS: Normal Saline Flush 10 ML SYR IVP ×2 (01:05→08:14)
[2024-05-31] MEDS: CEFEPIME 2 GM in Normal Saline 100 ML IVPB ×2 (01:05→12:30)
[2024-05-31] MEDS: Acetaminophen 500 MG TAB 1000 MG PO ×3 (05:56→19:41)
[2024-05-31] MEDS: Budesonide/Formoterol 160/4.5 6 GM 60 PUFF INH IH ×2 (08:02→20:37)
[2024-05-31] MEDS: DOXYCYCLINE 100 MG in Normal Saline 100 ML 200 MG IVPB (08:24)
[2024-05-31] MEDS: predniSONE 20 MG TAB 40 MG PO (08:25)
[2024-05-31] MEDS: amLODIPine 10 MG TAB PO ×2 (08:25→19:41)
[2024-05-31] MEDS: guaiFENesin 600 MG TABCR PO ×2 (08:25→19:41)
[2024-05-31] MEDS: Montelukast 10 MG TAB PO (08:25)
[2024-05-31] MEDS: Digoxin 0.125 MG TAB PO (08:25)
[2024-05-31] MEDS: Furosemide 20 MG TAB 40 MG PO (08:25)
[2024-05-31] MEDS: Esomeprazole 40 MG CAPCR PO (08:25)
--- NOTE | 2024-05-31 12:28 | IN_ITS ---
PT Notes Visit Reasons: COPD Exacerbation, Community Acquired Pneumonia Inpatient Physical Therapy Evaluation Date: 05/31/24 Referring Doctor: Marley Kolb NP PT Orders: PT CONSULT: safety consult for D/C Precautions: standard Patient Profile/Admitting Diagnosis: Patient admitted for management of COPD exacerbation. Respiratory therapy present at time of consultation for assessment for need for oxygen supplementation. Social History/Home Situation: Jackie lives in a private home. Normally independent, although admits to frequent shortness of breath. She has a 4WW, but uses infrequently. States that she mows her own lawn, does her own grocery shop ping, etc. Has not been on supplemental O2 at home up to this point. Equipment Owned/DME: 4WW Subjective: Jackie states that she is looking forward to walking. She's been s itting much more than usual. She states that she will be going home with oxygen, and that the time has come. Objective: General Observation: Resting in chair, with supplemental O2 via nasal cannula, adjusted by RT throughout session. Mental Status: A&Ox3. Pleasant and cooperative throughout. Pain: denies Vital Signs: Monitored by RT. SaO2 drops as low as 80% during ambulation. ROM: Right Upper Extremity: WFL Left Upper Extremity: WFL, with the exception of shoulder flexion, limited to 160*. 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 Right Lower Extremity: WFL Left Lower Extremity: WFL Strength: Right Upper Extremity: Shoulder flexion 4/5. Biceps 4/5. Triceps 4-/5. Left Upper Extremity: Shoulder flexion 3-/5. Biceps 4/5. Triceps 4-/5. Right Lower Extremity: Hip flexion 4/5. Quads 4/5. Ankle DF 4+/5. Left Lower Extremity: Hip flexion 4/5. Quads 4/5. Ankle DF 4+/5. Bed Mobility/Transfers: sit-stand: independent stand-sit: independent Gait: Ambulates 130' with UE support to vitals cart. Cues for pacing and breathing throughout. She ambulates last 25' without support, without significant gait deviations. Balance: Static Sitting: normal Dynamic Sitting: normal Static Standing: normal Dynamic Standing: normal Special Tests: Mobility Limitations [facility] Basic Mobility Inpatient Short Form: Raw Score: 24 CMS Score: 0% impairment Informed Consent/Education: Patient instructed in purpose of PT consult and plan of care. Treatment: Initial Evaluation (14250) Therapeutic Exercises (69278): Instruction in the following: Diaphragmatic breathing in sitting position, 3 breaths, 3x/day seated alternating arm and leg march, cues for upright positioning, pacing and breathing, 10x seated LAQ 10x seated ankle pumps 10x Written instructions provided on white board for completion between PT sessions. Assessment: Patient is a 73 year old female referred to physical therapy services with the diagnosis of COPD exacerbation, with PT consult request for safety consult for d/c recommendations. Jackie demonstrates good safety and independence, but with significant limitations in strength and activity tolerance, consistent with her acute medical issues. She requires skilled PT intervention to allow for further instruction in breathing and pacing techniques. She is appropriate for d/c home once medically stable. Recommend consideration of Pulmonary Rehab for continued gains. She currently demonstrates the following impairment level findings: 1. Decreased activity tolerance 2. oxygen desaturation with activity 3. decreased LE strength 4. shortness of breath Impairments are contributing to the following functional limitations: 1. unable to tolerate community distance ambulation without oxygen supplementation 2. requiring education on pacing and breathing techniques Patient is assessed as a Low 66847 complexity based on the following: History: as above Examination: functional limitations as above Presentation: evolving due to acute medical issues Decision Making: low Goals: Goals X1 week 1. demonstrate effective diaphragmatic breathing techniques 2. Able to tolerate 150' of ambulation with supplemental O2 and SaO2 > 85% Plan of Care/Treatment Plan: 1-2x/day, 7 days/week x 1 week. Plan of care has been reviewed with the [employer] providing the service under Physical Therapy direction. Initiate Physical Therapy intervention for strengthening, bed mobility, transfers, gait, stairs, balance training, use of assistive device. DISCHARGE RECOMMENDATIONS: Home. No equipment needs outside of O2 supplementation as per RT recommendations. Consider Pulmonary Rehab. TREATMENT CODE/TIME: [id number] (14696, 29395) Chery Linder, PT, DPT [facility]
[2024-05-31] MEDS: Docusate Sodium 100 MG/10 ML CUP 200 MG PO (12:30)
[2024-05-31] MEDS: Enoxaparin 40 MG/0.4 ML SYR SC (12:30)
[2024-05-31] MEDS: Albuterol/Ipratropium 3 ML UPD VIAL UPD ×3 (12:36→20:32)
--- NOTE | 2024-05-31 13:20 | W.PM.PROGNOT ---
Date of Service Date of service: 05/31/24 Time of Service: 13:20 Assessment and Plan Assessment and plan (1) Acute exacerbation of chronic obstructive pulmonary disease (COPD): Status: Acute Assessment and plan: Continue doxycycline and cefepime transition to oral on discharge O2 requirement down to 1.5 L at rest, increased with activity up to 8 liters; agreed to home O2 Known lung mass was noted; Pulmonary consult in the past has been refused Continue hold home Combivent,on duonebs now, Symbicort, and Spiriva; stating not on Spiriva at home - initiated Blood cultures no growth 48 hours RT consult : home CPAP setting completed / Home O2 needs- O2 weaning as much as possible Exercise oxymetry IS (2) HTN (hypertension): Status: Chronic Assessment and plan: On home dose Amlodipine Qualifiers: Hypertension type: essential hypertension Qualified Code(s): I10 - Essential (primary) hypertension (3) CHF (congestive heart failure): Status: Chronic Assessment and plan: HFpEF with last LVEF 60% w/o wall motion abnormality or significant valvular disease On home dose of furosemide and Digoxin. Qualifiers: Heart failure type: unspecified Qualified Code(s): I50.9 - Heart failure, unspecified (4) Abnormal chest CT: Assessment and plan: As previously noted, possible malignancy RUL. Patient has refused work-up in the past Seen by pulmonlogy in 2021- will defer to PCP re: f/u on patient's decision Follow up as per PCP (5) DVT prophylaxis: Status: Deleted Assessment and plan: On LMWH SC (6) Discharge planning issues: Status: Deleted Assessment and plan: Considering home oxygen if needed and agreed upon by patient Will need Oxygen at home, needed > 4 liters on ambulation Will still discharge when medically ready with prednisone taper and oral antibiotics Discussed with Dr. Greene Subjective Subjective Patient reports: no new complaints, feels better, still having pain, tolerating liquids well, tolerating a regular diet, voiding w/o difficulty, no bowel movement and shortness of breath; denies diarrhea, vomiting, afebrile or fever Exam Narrative Exam Narrative: Neuro:alert and oriented to self, person, place time and situation. No neurological focal deficit Resp: Clear lung bilaterally- diminished bases Cardio: regular rhythm, S1, S2, positive radial and pedal pulses GI: Abdomen is not distended, soft and non tender, bowel sounds are present Integumentary: No skin lesions or rash on exposed skin Extremities: strength 5/5 to bilateral lower and upper extremities Psych: RASS 0, congruent mood and normal affect. Objective Last Vital Signs Temp 36.7 C 05/31/24 07:21 Pulse 96 H 05/31/24 12:36 Resp 17 05/31/24 07:21 BP 124/62 05/31/24 07:21 Pulse Ox 91 L 05/31/24 12:36 Time Spent with Patient Time Spent with Patient: >50 minutes Time was spent: preparing to see the patient(eg.review tests), obtaining and/or reviewing separately otained hiistory, ordering medications,tests, procedures, referring, communicating with other health respiratory care specialist, indepentently interpreting results, counseling the patient and care coordination
[2024-05-31] MEDS: DOXYCYCLINE 100 MG in Normal Saline 100 ML IVPB (19:41)
[2024-05-31] MEDS: Docusate Sodium 100 MG CAP PO (19:41)
[2024-06-01] VITALS (11 sets, daily range): BP systolic 122–135; BP diastolic 56–67; PULSE 79–95; RESP 2–32; TEMP 36.2–36.7; O2SAT 89–100
[2024-06-01] MEDS: Normal Saline Flush 10 ML SYR IVP ×4 (00:11→19:13)
[2024-06-01] MEDS: CEFEPIME 2 GM in Normal Saline 100 ML IVPB ×2 (00:11→11:50)
[2024-06-01] MEDS: Milk of Magnesia 30 ML CUP PO (03:06)
[2024-06-01] MEDS: predniSONE 20 MG TAB 40 MG PO (07:52)
[2024-06-01] MEDS: Digoxin 0.125 MG TAB PO (07:53)
[2024-06-01] MEDS: guaiFENesin 600 MG TABCR PO ×2 (07:53→19:12)
[2024-06-01] MEDS: Esomeprazole 40 MG CAPCR PO (07:53)
[2024-06-01] MEDS: amLODIPine 10 MG TAB PO ×2 (07:54→19:12)
[2024-06-01] MEDS: DOXYCYCLINE 100 MG in Normal Saline 100 ML IVPB ×2 (07:55→19:13)
[2024-06-01] MEDS: Docusate Sodium 100 MG CAP PO ×3 (07:55→19:12)
[2024-06-01] MEDS: Montelukast 10 MG TAB PO (07:55)
[2024-06-01] MEDS: Albuterol/Ipratropium 3 ML UPD VIAL UPD ×4 (08:12→20:40)
[2024-06-01] MEDS: Budesonide/Formoterol 160/4.5 6 GM 60 PUFF INH IH ×2 (08:17→20:44)
[2024-06-01] MEDS: Tiotropium Bromide-Respimat 10 PUFF INH 2 PUFF IH (08:17)
[2024-06-01 08:38] LABS: Abs Immature Grans 0.09 10^3/uL (0.0-0.06); Absolute Basophil Count 0.01 10^3/uL (0.0-0.2); Absolute Lymphocyte Count 0.65 10^3/uL (1.2-3.4); Basophils % 0.1 %; HCT 35.6 % (36.0-46.0); HGB 10.1 g/dL (11.2-15.7); Immature Grans % 0.8 %; Lymphocytes % 5.4 %; MCH 24.8 pg (27.0-33.0); MCHC 28.4 % (32.0-36.0); MCV 87 fL (80-95); MPV 9.2 fL (8.0-11.0); Monocytes % 11.3 %; Neutrophils % 82.4 %; Nucleated RBC 0.2 % (0.0-0.3); Platelet Count 265 10^3/uL (130-400); RBC 4.08 10^6/uL (3.93-5.22); RDW-SD 53.9 fL
[2024-06-01] MEDS: Furosemide 20 MG TAB PO (08:38)
[2024-06-01 08:39] LABS: Absolute Monocyte Count 1.36 10^3/uL (0.1-0.8); Absolute Neutrophil Count 9.89 10^3/uL (1.2-6.7)
[2024-06-01 08:47] LABS: Anion Gap 6.8 mmol/L (3-11); BUN 30 mg/dL (7-18); CO2 32.2 mmol/L (21.0-32.0); CREATININE 1.1 mg/dL (0.55-1.02); Calcium 9.1 mg/dL (8.5-10.1); Chloride 98 mmol/L (98-107); Estimated GFR 52.73 (mL/min/1.73m2); Glucose 110 mg/dL (74-106); Potassium 4.7 mmol/L (3.5-5.1); Sodium 137 mmol/L (136-145)
[2024-06-01] MEDS: Bisacodyl 10 MG SUPP PR (10:14)
[2024-06-01] MEDS: Polyethylene Glycol 3350 17 GM PACKET PO (10:14)
[2024-06-01] MEDS: Enoxaparin 40 MG/0.4 ML SYR SC (11:49)
--- NOTE | 2024-06-01 12:16 | PT.INTREAT ---
PT Notes Visit Reasons: COPD Exacerbation, Community Acquired Pneumonia Date: 06/01/24 Precautions: standard SUBJECTIVE: Pi in bed having suppository administered, pt agreed to be seen after, OBJECTIVE: NC 1L 02 support ? PAIN: none ? BED MOBILITY/TRANSFERS? Supine-sit: I ? Sit-supine: I? Sit-stand: I? Stand-sit: I? Bed-Chair: I ? Chair-bed: I ? GAIT? Assistive Device: FWW? Weight bearing: Full Assist: supervision? Distance:? 300' ? Deviation: Slow theresa, low step height and short step length, standing rest break every 50 for Deep breathing and standing rest break ? ASSESSMENT:?standing rest break every 50 for Deep breathing and standing rest break, pt education about energy conservation strategies and deep breathing to prevent SOB. Plan: progression toward baseline level of function. TREATMENT CODE/TIME: [id number] 15mins (11:25-11:40am) ? Session 2: 21 minutes; 10077 x2 (13:01)
--- NOTE | 2024-06-01 12:47 | PGE_ITS ---
Date of Service Date of service: 06/01/24 Time of Service: 12:49 Assessment and Plan Assessment and plan (1) Acute exacerbation of chronic obstructive pulmonary disease (COPD): Status: Acute Assessment and plan: Continue doxycycline and cefepime transition to oral on discharge as needed O2 requirement down to 1.5 L at rest, increased with activity up to 8 liters; agreed to home O2 Most likely will need reevaluation of oxygen need at discharge with new exercise oxymetry testing Known lung mass ; Pulmonary consult in the past with refusal to pursue options by patient Continue hold home Combivent,on duonebs now, Symbicort, and Spiriva; stating not on Spiriva at home - initiated inpatient On mucinex Blood cultures no growth 72 hours RT consult : home CPAP setting completed / Home O2 needs- O2 weaning as much as possible Exercise oxymetry done 05/31/24 Continue IS Acapella intitiated (2) CHF (congestive heart failure): Status: Chronic Assessment and plan: HFpEF with last LVEF 60% w/o wall motion abnormality or significant valvular disease On home dose of furosemide and Digoxin. Increased edema to LE's noticed today; see below Qualifiers: Heart failure type: unspecified Qualified Code(s): I50.9 - Heart failure, unspecified (3) Bilateral lower extremity edema: Status: Acute Assessment and plan: Worsening, intial BNP >3751 On home dose oral furosemide Give additional furosemide 20 mg IVP today BMP and mag level in AM (4) Leukocytosis: Status: Acute Assessment and plan: WBC 6.29 on admission now 12 w/o fever, negative blood cultures Most likely related to steroid therapy Will continue to monitor CBC in AM (5) Abnormal chest CT: Assessment and plan: As previously noted, possible malignancy RUL. Patient has refused work-up in the past Seen by pulmonlogy in 2021- will defer to PCP re: f/u on patient's decision Follow up as per PCP (6) HTN (hypertension): Status: Chronic Assessment and plan: Continue home dose Amlodipine Qualifiers: Hypertension type: essential hypertension Qualified Code(s): I10 - Essential (primary) hypertension (7) DVT prophylaxis: Status: Deleted Assessment and plan: Continue SC Lovenox (8) Discharge planning issues: Status: Deleted Assessment and plan: Considering home oxygen if needed and agreed upon by patient Will need Oxygen at home, needed > 4 liters and up to 8 for recovery on ambulation Will still discharge when medically ready with prednisone taper and oral antibiotics if still needed Discussed with Dr. Greene Subjective Subjective Patient reports: no new complaints, feels better, tolerating liquids well, tolerating a regular diet, voiding w/o difficulty, bowel movement, shortness of breath and afebrile; denies blood in stool, nausea or vomiting Exam Narrative Exam Narrative: Neuro:alert and oriented to self, person, place time and situation. No neurological focal deficit Resp: Clear right middle lobe - lung bilaterally diminished L>R Cardio: regular rhythm, S1, S2, positive radial and pedal pulses, LE edema increased from 05/31 GI: Abdomen is not distended, soft and non tender, bowel sounds are present Integumentary: No skin lesions or rash on exposed skin Extremities: strength 5/5 to bilateral lower and upper extremities Psych: RASS 0, congruent mood and normal affect. Objective Last Vital Signs Temp 36.5 C 06/01/24 07:29 Pulse 80 06/01/24 08:26 Resp 32 H 06/01/24 08:12 BP 126/60 06/01/24 07:29 Pulse Ox 91 L 06/01/24 08:26 Laboratory Results - last 24 hr 06/01/24 08:31 WBC 12.00 H RBC 4.08 Hgb 10.1 L Hct 35.6 L MCV 87 MCH 24.8 L MCHC 28.4 L RDW 17.0 H Plt Count 265 MPV 9.2 Immature Gran % 0.8 Neutrophils % 82.4 Lymphocytes % 5.4 Monocytes % 11.3 Eosinophils % 0.0 Basophils % 0.1 Nucleated RBC % 0.2 Absolute Neutrophils 9.89 H Absolute Lymphocytes 0.65 L Absolute Monocytes 1.36 H Absolute Eosinophils 0.00 Absolute Basophils 0.01 Sodium 137 Potassium 4.7 Chloride 98 Carbon Dioxide 32.2 H Anion Gap 6.8 BUN 30 H Creatinine 1.1 H Est GFR (CKD-EPI 2020) 52.73 Glucose 110 H Calcium 9.1 Time Spent with Patient Time Spent with Patient: >50 minutes Time was spent: preparing to see the patient(eg.review tests), obtaining and/or reviewing separately otained hiistory, ordering medications,tests, procedures, referring, communicating with other health interior plant caretaker, indepentently interpreting results, counseling the patient and care coordination
[2024-06-01] MEDS: Acetaminophen 500 MG TAB 1000 MG PO ×2 (15:16→19:13)
[2024-06-01] MEDS: Furosemide 20 MG/2 ML VIAL IVP (16:10)
[2024-06-01] MEDS: Melatonin 3 MG TAB PO (19:12)
[2024-06-02] VITALS (14 sets, daily range): BP systolic 136–142; BP diastolic 58–64; PULSE 78–91; RESP 2–22; TEMP 36.4–37.1; O2SAT 87–99
[2024-06-02] MEDS: CEFEPIME 2 GM in Normal Saline 100 ML IVPB ×3 (00:41→23:21)
[2024-06-02] MEDS: Acetaminophen 500 MG TAB 1000 MG PO ×2 (03:51→20:14)
[2024-06-02 06:40] LABS: Abs Immature Grans 0.04 10^3/uL (0.0-0.06); Absolute Eosinophil Count 0.01 10^3/uL (0.0-0.7); Absolute Monocyte Count 1.35 10^3/uL (0.1-0.8); Absolute Neutrophil Count 7.29 10^3/uL (1.2-6.7); Eosinophils % 0.1 %; HCT 34.8 % (36.0-46.0); Immature Grans % 0.4 %; Lymphocytes % 6.5 %; MCHC 28.7 % (32.0-36.0); MCV 87 fL (80-95); MPV 9.4 fL (8.0-11.0); Monocytes % 14.5 %; Neutrophils % 78.5 %; Platelet Count 239 10^3/uL (130-400); RDW 16.8 % (11.7-14.6); RDW-SD 53.3 fL; WBC 9.29 10^3/uL (4.4-10.8)
[2024-06-02 06:49] LABS: Anion Gap 2.6 mmol/L (3-11); BUN 29 mg/dL (7-18); CO2 34.4 mmol/L (21.0-32.0); CREATININE 0.8 mg/dL (0.55-1.02); Calcium 8.9 mg/dL (8.5-10.1); Chloride 99 mmol/L (98-107); Estimated GFR 77.27 (mL/min/1.73m2); Glucose 90 mg/dL (74-106); Magnesium 1.8 mg/dL (1.8-2.4); Potassium 5.1 mmol/L (3.5-5.1); Sodium 136 mmol/L (136-145)
[2024-06-02] MEDS: Budesonide/Formoterol 160/4.5 6 GM 60 PUFF INH IH ×2 (08:03→21:15)
[2024-06-02] MEDS: Tiotropium Bromide-Respimat 10 PUFF INH 2 PUFF IH (08:03)
[2024-06-02] MEDS: Albuterol/Ipratropium 3 ML UPD VIAL UPD ×4 (08:04→21:11)
[2024-06-02] MEDS: Normal Saline Flush 10 ML SYR IVP ×2 (08:12→22:10)
[2024-06-02] MEDS: DOXYCYCLINE 100 MG in Normal Saline 100 ML IVPB ×2 (08:12→22:09)
[2024-06-02] MEDS: Polyethylene Glycol 3350 17 GM PACKET PO (08:14)
[2024-06-02] MEDS: amLODIPine 10 MG TAB PO ×2 (08:14→20:14)
[2024-06-02] MEDS: Montelukast 10 MG TAB PO (08:14)
[2024-06-02] MEDS: Esomeprazole 40 MG CAPCR PO (08:15)
[2024-06-02] MEDS: predniSONE 20 MG TAB 40 MG PO (08:15)
[2024-06-02] MEDS: Digoxin 0.125 MG TAB PO (08:15)
[2024-06-02] MEDS: guaiFENesin 600 MG TABCR PO ×2 (08:16→20:14)
[2024-06-02] MEDS: Docusate Sodium 100 MG CAP PO ×3 (08:16→20:14)
[2024-06-02] MEDS: Furosemide 20 MG TAB 40 MG PO (08:16)
--- NOTE | 2024-06-02 10:18 | PT.INTREAT ---
PT Notes Visit Reasons: COPD Exacerbation, Community Acquired Pneumonia Physical Therapy Inpatient Treatment Note Date: 06/02/24 Precautions: Standard. Activity as tolerated. On 1 L of continuous O2 via NC. SUBJECTIVE: Feels more confident about being able to monitor symptoms in relation to her oxygen saturation changes whileperforming mobility ADLs using FWW. Wondering when she can get her home oxygen so she could go home. OBJECTIVE: 1L 02 support via NC ? PAIN: none ? BED MOBILITY/TRANSFERS? Supine-sit: independent ? Sit-supine: independent ? Sit-stand: independent ? Stand-sit: independent ? Bed-Chair: independent ? Chair-bed: independent ? GAIT? Assistive Device: FWW? Weight bearing: Full Assist: supervision? Distance:? 350' ? Deviation: Slow theresa, low step height and short step length, standing rest break every 75 for pursed lip breathing and to allow for oxygen saturation recovery/symptom minimization. Recovery of saturation levels takes about 2 minutes on 1 L via NC to get back up to at least 88%. THERA EX; Guided patient with deep breathing techniques alongside chest expansion exercises to facilitate qucik recovery and resaturation during activity performance. ? ASSESSMENT:? Activity tolerance improving. Patient ow more able to appreciate being able to feel her symtoms in reltion to desaturation so she is more keen about activity pacing/cessation to minimize SOB and fatigue. Plan: Regain PLOF of modified indpendent with use of FWW for indoor ambulation. TREATMENT CODE/TIME: [id number] x 42 mins for 3 units (10:18-11:00am). ?
[2024-06-02] MEDS: Milk of Magnesia 30 ML CUP PO (11:26)
[2024-06-02] MEDS: Enoxaparin 40 MG/0.4 ML SYR SC (11:26)
--- NOTE | 2024-06-02 14:47 | W.PALLCONSUL ---
Date of service: 06/02/24 Time of Service: 14:47 History of Present Illness Narrative: Jackie Myers is a 73 yo woman from [place], [place] who was recently admitted to inpt at [facility] several days ago with pneumonia and hypoxia. Hospitalist team has consulted us to review goals of care with patient, and review her advance care directives. Of note, patient initially found to have suspicious right upper lobe lung lesion 2 years ago, but repeatedly declined any further workup, as she says she would never consider surgery or chemotherapy should it last turner to be cancer. Her medical problems include COPD (on BiPAP for COPD since 2021), CHF, GERD, Chronic mild anemia, RUL suspicious lesion 2021 that pt elected not to have worked up. CT scan done during admission:Lung Lesion Initially seen in 2021 lung lesion is about same size on CT scan. There are multiple other lung lesions and one pleural based lesion which could be infectious or malignant (not seen on 2021 CT scan). No effusion and n cocncerning lymph nodes. She has been on nasal Bipap for her COPD (without supplemental oxygen) since recommended by Dr. Lee in 2021. She says this works as she now sleeps with her mouth closed. She has noted that her O2 Sats have mostly been in the mid-80s 9and often lower) at home and she is more dyspneic in the last 6 months. I knew I probably needed oxygen, but denied it. Care Team: Primary Care physician: Deven Fernández NP [facility]: Not followed as outpatient (Dr. Lee consulted when she was an inpt in 2021). Social HX: Lives with son Vinh Ivy in [place], [place] ([place] [facility] of [facility] that is adjacent to [place]). Grandson (Virgilio) now grown and moved out. 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 No friends (, chose not to make new friends) Additional Services: RCT on occasion NO other services Impression of currents health status: Before she got ill , she realized she probably did need oxygen, but I'm stupid and did not want it. What bothers you the most: That the breathing is slowly her down and taking away things she can do. Might do better on oxygen. What worries you the most: Can't think of anything health ferris. Goals: -Hopes that oxygen allows her to return to taking care of house and dogs. -SNF only if needed, or if Vinh could not care for her. -No other specific hopes, goals or fears. Sxs hard for her to want to continue living: Really SOB from CHF.\c Current information preferences: OK to talk about anything Function: Ambulation: Usually does not need aid. Cane or walker only if back is bad ADLs: Totally independent iADLs: Totally independent: She has been doing most of the housecleaning and the cooking and the pet care and mowing the lawn on rider mower. Son takes her shopping. SHe handles the finanaces. Hearing: Reports OK Vision: Uses glasses. Cognition: Seems to be OK, no concerns. Falls: None Driving: Still drives (does not own a car) Palliative Performance Scale % Ambulation Activity and Evidence of Disease Self Care Intake Level of Consciousness 100 Full Normal activity, no evidence of disease Full Normal Full 90 Full Normal activity, some evidence of disease Full Normal Full 80 Full Normal activity with effort, some evidence of disease Full Normal or reduced Full 70 Reduced Unable to do normal work, some evidence of disease Full Normal or reduced Full 60 Reduced Unable to do hobby or some housework, significant disease Occasional assist necessary Normal or reduced Full or confusion 50 Mainly sit/lie Unable to do any work, extensive disease Considerable assistance required Normal or reduced Full or confusion 40 Mainly in bed Unable to do any work, extensive disease Mainly assistance Normal or reduced Full, drowsy, or confusion 30 Totally bed bound Unable to do any work, extensive disease Total care Reduced Full, drowsy, or confusion 20 Totally bed bound Unable to do any work, extensive disease Total care Minimal sips Full, drowsy, or confusion 10 Totally bed bound Unable to do any work, extensive disease Total care Mouth care only Drowsy or coma 0 - - - - Patient Score: 60-70 Spiritual history: NOt advent, no mandaen Palliative review of systems: Pain: Legs and belly and low back are sore. These are transient and come and go. Dyspnea: WOrse the week before she came in. Home O2s prior to getting sick often in pierre 80's (60s the day she came to ED) GI symptoms: NL stools is QOD,currently constipated. no nausea (That prednisone is making my appetite too good) Appetite:Too good Depression: NOne Anxiety: None Emotional Distress: None Spiritual/Existential Distress: None Labs: Cr: 0.8 Liver panel: WNL Albumin: 3.3 CBC: hgb 10.0 Advanced Care Planning: Advanced Directive: September 2011 AD on file, reviewed Health Care Agent: New form today: Son Vinh Ivy will be HCA and grandson Virgilio is alternate. COLST: COLST January 2019: DNR/DNI, +admit, +abx, + IV fluids, NO feeding tube. COLST rewritten and signed today (May 2024) to read the same Limitations: Assessment and Plan Assessment and plan (1) CAP (community acquired pneumonia): Status: Acute Assessment and plan: Ms. Myers is a 73 yo woman with advanced COPD admitted for pneumonia with acute respiratory failure. Given her history of home oxygen saturations in the mid 80s for the last 6 months, she likely now will need chronic home oxygen. She also had RUL lung mass identified 2 years ago which she declined further evaluation of. CT scan this admission shows no appreciable change in this lung mass but additional new lesions which either could be multifocal pneumonia or malignant lesions. #Goals of care discussion: -Patient describes that what is most important to her is to continue to do her life educator and care for her dogs, spend time with her son, grandson and sister who lives locally. -She very much would like to stay at home for the rest of her life. But she would be willing to live in a SNF (preferably [place] [facility] where she used to work) if there came a time when her family could no longer care for her at home. She does not want to be a burden to them. Healthcare agent: Her 2011 advanced directive lists her iglesiaon as her healthcare agent. She no longer has any contact with him. She believes she has more recent forms at home but she is not sure. She agreed to fill out a new healthcare agent form. She appointed her son Vinh Ivy as her healthcare agent and her adult grandson Virgilio Ivy as alternate. Although she is close to her sister, she did not want to add her to the list at this time. Forms were completed, witnessed and patient given original. CODE STATUS: We have a 2019 COLST form on file. At that time patient had a ready requested DNR/DNI status, although she would still want to be admitted to the hospital to receive IV antibiotics IV fluids and other treatments. She would not want a feeding tube. 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 We revisited life-sustaining treatment discussion. We discussed the procedure of CPaR, actual mechanical process, rate of success in restoring heartbeat, short and long-term side effects in survivors (including likely decreased physical and cognitive functioning). Patient says that she still wishes to be DNR/DNI. She still at this time would like to receive IV antibiotics if she has an infection and IV fluids. She does not want to have a feeding tube. She says she cannot tolerate any sort of facemask (uses BiPAP with nasal cannula only). But later says she has been able to tolerate it for short periods of time. She would be agreeable to high flow oxygen if needed. Given that the COLST on file is 5 years old, it was rewritten today, although basically unchanged from 2019. Patient points out that she is glad she came to the hospital to be treated and looks forward to going home on oxygen. #Suspicious lung lesion(s) Asked patient to tell me about her decision not to pursue evaluation of lung lesion in 2021 and her decision that she does not want any further evaluation of suspicious lesions at this time. She tells me that her of small cell cancer about 25 years ago. She felt that he suffered terribly during 18 months of treatment with chemotherapy and radiation. She had had similar discussion with Dr. Lee [address] Lee had explained that if the right upper lobe lesion was a cancer, more likely to be a slow-growing non-small cell CA given lack of significant adenopathy at that time and that this would be more amenable to treatment. Patient says she remembers this discussion and understood. She then shared with me her father's history of being diagnosed with a brain tumor and suffering through treatment with surgery and chemotherapy which she feels led to his early demise and loss of any remaining quality of life for his last days. We discussed that she now has multiple small lesions which could either be infection or possibly a malignancy. She repeats that she is not interested in biopsy. She says she would never undergo any sort of chemotherapy, immunotherapy or radiation even if it was considered palliative with minimal side effects. We discussed that knowing the diagnosis would help with prognosis and with planning. She is willing to discuss with her PCP as an outpatient whether to repeat imaging in a few months as an outpatient to see if there is any change in the lesions. She pointed out I do not need to decide this right now . If she has a cancer, she hopes to remain at home for as long as possible with support of the hospice team. Therefore, having a diagnosis of cancer, would help her qualify for hospice if she did not meet other criteria. #COPD with acute on chronic respiratory failure: Patient said she had been denying that she needed oxygen for at least 6 months. She is now looking forward to home oxygen as she hopes it will allow her to be more functional with her home chores and allow her more active in general. I note that in 2021 she was felt to have hypercapnia as well. I advised her to consider reengaging with outpatient pulmonary team to help her optimize outpatient therapy of her COPD. She thought this was a good idea. ---- Discussed with patient follow-up. She would like to to have follow-up home visit in agrees to 2-month follow-up. Please contact us if you would like us to see patient sooner. ---- 16 to 30 minutes spent today on Advance Care Planning. Patient and family participated voluntarily. Advance care planning may include (not limited to) explanation and discussion of advance directives, choosing and appointing healthcare agents, alternatives to various ACP tools, discussion of (and if indicated, completion of) COLST form, discussion of patient's values and overall goals for treatment, palliative and disease directive care options, ways to avoid hospital readmission including hospice discussions, care preferences should the patient's several other adverse health events.See today's palliative care note for additional information. ---- This note was dictated using speech recognition software. Attempt was made at proofreading, but errors may be present. Please call with questions. (2) Acute and chronic respiratory failure ([id number]): Status: Acute (3) COPD exacerbation: Status: Acute (4) Do not intubate, perform CPR, or defibrillate: Status: Acute (5) Palliative care patient: Status: Acute (6) Advanced care planning/counseling discussion: Status: Acute PFSH All Active Problems (Updated 06/02/24 @ 20:36 by Kaylee Medrano MD) Advanced care planning/counseling discussion (Acute) Palliative care patient (Acute) Acute and chronic respiratory failure ([id number]-gisdsit) (Acute) Leukocytosis (Acute) Bilateral lower extremity edema (Acute) CAP (community acquired pneumonia) (Acute) COPD exacerbation (Acute) Acute respiratory failure with hypoxia (Acute) Do not intubate, perform CPR, or defibrillate (Acute) 2018 COLST. Confirmed with new May 2024 COLST: +transfer to hospital, +abx,+IV fluids, No feeding tube CHF (congestive heart failure) (Chronic) Cervical arthritis with myelopathy (Acute) Acute exacerbation of chronic obstructive pulmonary disease (COPD) (Acute) Arthritis (Acute 02/10/13) Osteoporosis (Acute 01/14/08) Tachycardia (Chronic) HTN (hypertension) (Chronic) GERD (gastroesophageal reflux disease) (Chronic) Medical History Abnormal chest CT Acute on chronic diastolic CHF (congestive heart failure) Acute on chronic respiratory failure with hypoxia and hypercapnia CAP (community acquired pneumonia) Chronic obstructive lung disease h/o tobacco use, quit 2008 COVID-19 -associated with COPD exacerbation COVID-19 GERD (gastroesophageal reflux disease) HTN (hypertension) Parotid mass Resolved after 3 months without intervention Tobacco dependence due to cigarettes Quit smoking when she was 59 years old Surgical History Endoscopic Carpal Tunnel release (03/31/13) Left 7.2.13 Family History (Updated 06/24/23 @ 13:35 by Maty Torres) Mother Essential hypertension Hyperlipidemia Adopted Dementia Father Heart disease Neoplasm LUNG Lung cancer Sister No problems noted. Sister No problems noted. Brother No problems noted. Brother No problems noted. Maternal Grandfather Stroke Paternal Grandfather Heart disease Maternal Grandmother Heart disease Paternal Grandmother Stroke Son Diabetes Essential hypertension Daughter No problems noted. Social History Smoking/Tobacco Use Status: Former Tobacco Use tobacco type: cigarettes Quit Date: 09/30/13 Tobacco: How many years used: 50 Second Hand Exposure: Yes Smoking risk assessment performed?: Yes Alcohol Intake: never Drug use: Never Substance use type: does not use Counseling given: No Counseling provided: none Caregiver/Support person: No Household members: family Housing: house Communication Needs: None Do you need help understanding health information?: Never Pets and animals: Yes Pets and animals: dog(s) Sexually active: No Do you think of yourself as: straight/heterosexual Current gender identity: female What is your relationship status?: How often do you talk on the phone with friends or family?: three or more times per week How often do you get together with friends or relatives?: three or more times per week Do you belong to any clubs or organized social groups?: no Panel score (0-1 are the most socially isolated patients): 1 What type of physical activity do you participate in: none Special juan needs: No Seatbelt use: sometimes Helmet use: No Drive intox or ride w/intox bulk 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 Able to speak in complete sentences, and then needs to take a few breaths. Speak is rapid (I'm on a lot of prednisone right now). Color slightly sallow. SPeach is fluid. Oriented x 3. 1+ bilateral leg edema, knee high choco hose on. Results Last Vital Signs Temp 36.8 C 06/02/24 07:45 Pulse 82 06/02/24 11:41 Resp 16 06/02/24 11:41 BP 136/58 L 06/02/24 07:45 Pulse Ox 92 06/02/24 11:41 Labs 06/02/24 06:07 06/02/24 06:07 Labs: Laboratory Results - last 24 hr 06/02/24 06:07 WBC 9.29 RBC 4.00 Hgb 10.0 L Hct 34.8 L MCV 87 MCH 25.0 L MCHC 28.7 L RDW 16.8 H Plt Count 239 MPV 9.4 Immature Gran % 0.4 Neutrophils % 78.5 Lymphocytes % 6.5 Monocytes % 14.5 Eosinophils % 0.1 Basophils % 0.0 Nucleated RBC % 0.0 Absolute Neutrophils 7.29 H Absolute Lymphocytes 0.60 L Absolute Monocytes 1.35 H Absolute Eosinophils 0.01 Absolute Basophils 0.00 Sodium 136 Potassium 5.1 Chloride 99 Carbon Dioxide 34.4 H Anion Gap 2.6 L BUN 29 H Creatinine 0.8 Est GFR (CKD-EPI 2020) 77.27 Glucose 90 Calcium 8.9 Magnesium 1.8 Time Spent Time Spent with Patient Time Spent(min): 75
--- NOTE | 2024-06-02 16:08 | PDOC.CMPRO ---
Date of service: 06/02/24 Time of Service: 16:09 Care Management Progress Note Progress Note Text Progress Note Text: Jackie was sitting up in her chair when CM met with her. She stated that she is looking forward to discharging home tomorrow, which is her expectation. She stated that her son has tomorrow off, and he has appointments in [place] and [facility], so it will be convenient for him to grape picker her prescriptions at the [facility], and to pick her up and drive her home. Per report, she will have orders for new O2, and per RT, this will be filled by [facility] in [place]. [facility] will deliver a tank to [facility] for her to transport home with, and will meet her at her home in the afternoon. The provider sent in her prescriptions this afternoon, so that her son will be able to pick them up in the morning when he is in [place], and he will plan to pick her up in the afternoon, after 1pm. CM will continue to follow. Discharge Potential Discharge Needs: PCP F/U Appt and Other (supplemental home O2) Anticipated Barriers to Discharge: None Identified Patient/Family Education Needs: Review discharge instructions, discuss Ask Me Three Transportation: Private vehicle Plan: Jackie will return home once medically cleared. Her son will drive her home via private vehicle, after picking up her prescriptions. She will have new home O2 through [facility], which will provide a tank for her to transport home with, and will meet her at home for delivery. She will follow up with her PCP and discharge plan of care. CM will continue to follow. SDOH(Care Management) Screening Will the Patient Participate in the Screening?: Yes Do you worry about having a steady place to live?: no Problems where you live: pests such as bugs, ants or mice In the past 12 months, have you had to go without electric, gas, oil or water in your home?: no Have you or anyone in your house had to go without enough food to eat?: no Has lack of transportation kept you from medical appointments or from doing things needed for daily living?: no Has anyone in your support network made you feel unsafe for any reason?: no Health Related Social Needs Health related social needs: inadequate housing(Z59.1) Health related social needs details: lives with son
--- NOTE | 2024-06-02 18:18 | W.PM.PROGNOT ---
Date of Service Date of service: 06/02/24 Time of Service: 12:00 Assessment and Plan Assessment and plan (1) Acute exacerbation of chronic obstructive pulmonary disease (COPD): Status: Acute Assessment and plan: Continue doxycycline and cefepime transition to oral on discharge as needed - cefpodoxime 200 mg bid x 5d ordered O2 requirement down to 1.5 L at rest, increased with activity up to 2 liters; agreed to home O2 Known lung mass ; Pulmonary consult in the past with refusal to pursue options by patient Continue hold home Combivent,on duonebs now, Symbicort, and Spiriva; stating not on Spiriva at home - initiated inpatient On mucinex Blood cultures no growth 72 hours RT consult : home CPAP setting completed / Home O2 needs- O2 weaning as much as possible Exercise oxymetry prior to dc Continue IS and acapella (2) CHF (congestive heart failure): Status: Chronic Assessment and plan: HFpEF with last LVEF 60% w/o wall motion abnormality or significant valvular disease On home dose of furosemide and Digoxin. Stable Qualifiers: Heart failure type: unspecified Qualified Code(s): I50.9 - Heart failure, unspecified (3) Bilateral lower extremity edema: Status: Acute Assessment and plan: Worsening, intial proBNP >3751 On home dose oral furosemide trend electrolytes (4) Leukocytosis: Status: Acute Assessment and plan: WBC 6.29 on admission now 12 w/o fever, negative blood cultures in setting of steroids CBC in AM (5) Abnormal chest CT: Assessment and plan: As previously noted, possible malignancy RUL. Patient has refused work-up in the past Seen by pulmonlogy in 2021- will defer to PCP re: f/u on patient's decision Follow up as per PCP (6) HTN (hypertension): Status: Chronic Assessment and plan: Stable, Continue home dose Amlodipine Qualifiers: Hypertension type: essential hypertension Qualified Code(s): I10 - Essential (primary) hypertension (7) DVT prophylaxis: Status: Deleted Assessment and plan: Stable Continue SC Lovenox (8) Discharge planning issues: Status: Deleted Assessment and plan: Home oxygen ordered Will discharge when medically ready with prednisone taper and oral antibiotics Discussed with Dr. Regan Subjective Subjective Patient reports: no new complaints, voiding w/o difficulty and shortness of breath (decreased sob) Exam Narrative Exam Narrative: Neuro:alert and oriented to self, person, place time and situation. No neurological focal deficit Resp: Clear bilaterally diminished Cardio: regular rhythm, S1, S2, positive radial and pedal pulses, no edema GI: Abdomen is not distended, soft and non tender, bowel sounds are present Integumentary: No skin lesions or rash on exposed skin Extremities: strength 5/5 to bilateral lower and upper extremities Psych: RASS 0, congruent mood and normal affect. Objective Last Vital Signs Temp 36.7 C 06/02/24 16:23 Pulse 87 06/02/24 16:23 Resp 20 06/02/24 16:23 BP 139/61 06/02/24 16:23 Pulse Ox 93 06/02/24 16:27 Laboratory Results - last 24 hr 06/02/24 06:07 WBC 9.29 RBC 4.00 Hgb 10.0 L Hct 34.8 L MCV 87 MCH 25.0 L MCHC 28.7 L RDW 16.8 H Plt Count 239 MPV 9.4 Immature Gran % 0.4 Neutrophils % 78.5 Lymphocytes % 6.5 Monocytes % 14.5 Eosinophils % 0.1 Basophils % 0.0 Nucleated RBC % 0.0 Absolute Neutrophils 7.29 H Absolute Lymphocytes 0.60 L Absolute Monocytes 1.35 H Absolute Eosinophils 0.01 Absolute Basophils 0.00 Sodium 136 Potassium 5.1 Chloride 99 Carbon Dioxide 34.4 H Anion Gap 2.6 L BUN 29 H Creatinine 0.8 Est GFR (CKD-EPI 2020) 77.27 Glucose 90 Calcium 8.9 Magnesium 1.8 Time Spent with Patient Time Spent with Patient: 25-34 minutes Time was spent: preparing to see the patient(eg.review tests), ordering medications,tests, procedures, referring, communicating with other health medical care manager, indepentently interpreting results, counseling the patient and care coordination
--- NOTE | 2024-06-02 18:29 | RESPIRATORY ---
Pt will be discharged home tomorrow 06/03/24 with new home O2 through [facility], 1L at rest and 2L with ambulation. This RT spoke with Jade at [facility] today @ 16:30 and was told that [facility] will deliver an E tank to the hospital tomorrow morning for the patient to go home with. Pt will then be discharged in the afternoon/evening and [facility] is expecting to meet pt at her home around 15:30 for completion of setup. Of note, RT attempted to set patient up with home O2 through [facility] as the patient already uses this company for her NIV machine and supplies. [facility] advised that the patient lives out of their current service territory for oxygen equipment.
[2024-06-02] MEDS: Melatonin 3 MG TAB PO (20:14)
[2024-06-02] MEDS: Mineral Oil-Enema 133 ML BTL PR (20:14)
[2024-06-03 06:31] LABS: Abs Immature Grans 0.06 10^3/uL (0.0-0.06); Absolute Basophil Count 0.01 10^3/uL (0.0-0.2); Absolute Eosinophil Count 0.03 10^3/uL (0.0-0.7); Absolute Lymphocyte Count 0.74 10^3/uL (1.2-3.4); Absolute Neutrophil Count 7.36 10^3/uL (1.2-6.7); Basophils % 0.1 %; Eosinophils % 0.3 %; HCT 35.8 % (36.0-46.0); HGB 10.4 g/dL (11.2-15.7); Immature Grans % 0.6 %; Lymphocytes % 7.6 %; MCH 24.5 pg (27.0-33.0); MCHC 29.1 % (32.0-36.0); MCV 84 fL (80-95); Monocytes % 15.5 %; Neutrophils % 75.9 %; Platelet Count 279 10^3/uL (130-400); RBC 4.24 10^6/uL (3.93-5.22); RDW 16.7 % (11.7-14.6); RDW-SD 51.7 fL
[2024-06-03 06:44] LABS: Anion Gap -0.6 mmol/L (3-11); BUN 26 mg/dL (7-18); CO2 34.6 mmol/L (21.0-32.0); Calcium 9.5 mg/dL (8.5-10.1); Chloride 94 mmol/L (98-107); Estimated GFR 59.12 (mL/min/1.73m2); Glucose 100 mg/dL (74-106); Magnesium 1.9 mg/dL (1.8-2.4); Potassium 4.6 mmol/L (3.5-5.1); Sodium 128 mmol/L (136-145)
[2024-06-03 07:24] VITALS: BP 148/71; PULSE 90; RESP 18; TEMP 36.9; O2SAT 95
[2024-06-03] MEDS: amLODIPine 10 MG TAB PO (07:32)
[2024-06-03] MEDS: guaiFENesin 600 MG TABCR PO (07:32)
[2024-06-03] MEDS: Polyethylene Glycol 3350 17 GM PACKET PO (07:32)
[2024-06-03] MEDS: predniSONE 20 MG TAB 40 MG PO (07:32)
[2024-06-03] MEDS: Digoxin 0.125 MG TAB PO (07:32)
[2024-06-03] MEDS: Esomeprazole 40 MG CAPCR PO (07:32)
[2024-06-03] MEDS: Furosemide 20 MG TAB PO (07:33)
[2024-06-03] MEDS: Docusate Sodium 100 MG CAP PO (07:33)
[2024-06-03] MEDS: Montelukast 10 MG TAB PO (07:33)
[2024-06-03 07:52] VITALS: PULSE 77; RESP 2; RESP 9; O2SAT 93
[2024-06-03] MEDS: Albuterol/Ipratropium 3 ML UPD VIAL UPD ×2 (07:52→11:19)
[2024-06-03] MEDS: Tiotropium Bromide-Respimat 10 PUFF INH 2 PUFF IH (07:58)
[2024-06-03] MEDS: Budesonide/Formoterol 160/4.5 6 GM 60 PUFF INH IH (07:58)
[2024-06-03 08:05] VITALS: RESP 26; RESP 5
[2024-06-03] MEDS: Normal Saline Flush 10 ML SYR IVP (08:55)
[2024-06-03] MEDS: DOXYCYCLINE 100 MG in Normal Saline 100 ML IVPB (09:35)
--- NOTE | 2024-06-03 10:43 | PT.INTREAT ---
PT Notes Visit Reasons: COPD Exacerbation, Community Acquired Pneumonia Physical Therapy Inpatient Treatment Note Date: 06/03/24 Precautions: Standard. Activity as tolerated. On 1 L of continuous O2 via NC. SUBJECTIVE: More adept at noticing beginning of symptoms and is able to rest to get ahead before she desaturates. Looking forward to going home after lunch today. Agreeable with HH PT. Worried about not being able to move her bowels yet. OBJECTIVE: 1L 02 support via NC ? PAIN: None reported ? BED MOBILITY/TRANSFERS? Supine-sit: independent ? Sit-supine: independent ? Sit-stand: independent ? Stand-sit: independent ? Bed-Chair: independent ? Chair-bed: independent ? GAIT? Assistive Device: FWW? Weight bearing: Full Assist: supervision? Distance:? 150 feet ? Deviation: Slow theresa, low step height and short step length, standing rest break every 50 for pursed lip breathing and to allow for oxygen saturation recovery/symptom minimization. Recovery of saturation levels takes about 2 minutes on 1 L via NC to get back up to at least 88%. THERA ACT; Guided patient with deep breathing techniques alongside chest expansion exercises to facilitate qucik recovery and resaturation during activity performance. Access Code: [email or web address] URL: [email or web address] Date: 06/03/2024 Prepared by: Susana Lainez Patient Education - Understanding Energy Conservation ? ASSESSMENT:? Activity tolerance improving. Patient ow more able to appreciate being able to feel her symptoms in relation to desaturation so she is more keen about activity pacing/cessation to minimize SOB and fatigue. Plan: Regain PLOF of modified indpendent with use of FWW for indoor ambulation. TREATMENT CODE/TIME: 13478 x 25 mins for 2 units (10:08-10:35 am).
[2024-06-03 11:19] VITALS: PULSE 82; RESP 9; O2SAT 92
[2024-06-03 11:28] VITALS: PULSE 82; RESP 9
[2024-06-03] MEDS: Enoxaparin 40 MG/0.4 ML SYR SC (12:15)
[2024-06-03] MEDS: CEFEPIME 2 GM in Normal Saline 100 ML IVPB (12:16)
--- NOTE | 2024-06-03 12:16 | PDOC.HHF2F_ITS ---
Home Health Referral Home Health Orders Clinical synopsis of why skilled professionals are needed: This is a 73-year-old woman with a history of COPD, CHF, and a previously identified right upper lobe lung lesion, who was admitted to [facility] 05/29/24 with pneumonia and hypoxia. She presented with worsening shortness of breath and low oxygen saturation levels, which have been persistently low at home, often in the mid-80s or lower. Despite recognizing that she might need supplemental oxygen, she previously declined it. During her admission, Jackie was placed on doxycycline and cefepime to address a potential infection. Her oxygen requirements have decreased to1 liters at rest, although she still requires higher levels with activity. A respiratory therapy consult was completed, which confirmed her home CPAP settings and recommended weaning oxygen as much as possible, acknowledging her reluctance toward home oxygen use. Her current respiratory regimen includes nebulized Duonebs, as well as Symbicort and Spiriva, which she has been maintained on for COPD management. The necessity of continuing Combivent at home is deferred to her primary care provider. Blood are negative to date (96h. Jackie?s history includes a previously noted right upper lobe lung mass discovered two years ago, for which she refused further workup, stating that she would not consider surgery or chemotherapy if the lesion were malignant. A recent CT scan showed that the lung lesion remains unchanged in size but revealed additional lung lesions and a pleural-based lesion, raising concerns for possible malignancy or infection. Despite these findings, she continues to refuse a pulmonary workup or specialist follow-up. Jackie lives with her son in [place], [place], and has limited social connections. She has now reconsidered home oxygen and will have it available to her in her home. This was set up through [facility]. Jackie is discharged to home with cefpodoxime 200 mg twice a day for 5 days. Registered Nurse: Check all that apply Instruct on new or changed medication(s)/assess compliance: Ordered Assess for exacerbation of medical condition, instruct patient/caregivers on signs and symptoms to report for early detection: Ordered Other: New home oxygen Physical Therapist: Check all that apply Increase strength & endurance for safe mobility at home: Ordered To design/establish home maintenance program: Ordered Fall reduction therapy program for patient with history of frequent falls: Ordered Home safety evaluation and teaching/gait training including stair management (if applicable): Ordered Better Breathing Program: Ordered Other: PT note: Activity tolerance improving. Patient now more able to appreciate being able to feel her symptoms in relation to desaturation so she is more keen about activity pacing/cessation to minimize SOB and fatigue. Plan: Regain PLOF of modified independent with use of FWW for indoor ambulation. Kinesiotherapist: Assist with community resources: Ordered Assist with snf care planning: Ordered Home Bound Status Requires the aid of supportive device (check all that apply): Walker Patient has a condition such that leaving home is medically contraindicated (Describe): Patient requires oxygen Describe why leaving home would require a considerable and taxing effort: Requires frequent rest periods and Oxygen Encounter Date and Reason: I certify that a FTF encounter for this patient was performed on June 03, 2024 and that such encounter was related to the primary reason the patient requires home health services. The encounter was conducted in the following manner: * By me as the certifying physician, FIXER SUPERVISOR, PA or * By an inpatient physician, FIXER SUPERVISOR or PA during an inpatient stay who communicated findings to me, Certification And Authentication I certify that I composed the above information based on my clinical judgment relating to this patient's medical condition and, if applicable, clinical findings communicated to me by the NPP or inpatient physician who performed the FTF encounter. Name of Provider that will be monitoring home health services: Deven Roberto
--- NOTE | 2024-06-03 12:32 | W.PM.DS.N ---
Date of service: 06/03/24 Time of Service: 12:32 DS: Diagnosis Discharge Diagnosis (1) CAP (community acquired pneumonia): Status: Acute (2) Acute and chronic respiratory failure ([id number]): Status: Acute (3) COPD exacerbation: Status: Acute (4) Do not intubate, perform CPR, or defibrillate: Status: Acute (5) Palliative care patient: Status: Acute (6) Advanced care planning/counseling discussion: Status: Acute Discharge Plan Disposition Patient Disposition: Home W/Home Health Services Condition: Improving Discharge Details Reason For Visit: COPD Exacerbation, Community Acquired Pneumonia Admit Date/Time: 05/29/24 09:19 Admit Provider: Otilio Greene Attending Provider: Otilio Greene Primary Care Provider: Deven Collier Hospital Course Hospital Course: This is a 73-year-old woman with a history of COPD, CHF, and a previously identified right upper lobe lung lesion, who was admitted to [facility] 05/29/24 with pneumonia and hypoxia. She presented with worsening shortness of breath and low oxygen saturation levels, which have been persistently low at home, often in the mid-80s or lower. Despite recognizing that she might need supplemental oxygen, she previously declined it. During her admission, Jackie was placed on doxycycline and cefepime to address a potential infection. Her oxygen requirements have decreased to1 liters at rest, although she still requires higher levels with activity. A respiratory therapy consult was completed, which confirmed her home CPAP settings and recommended weaning oxygen as much as possible, acknowledging her reluctance toward home oxygen use. Her current respiratory regimen includes nebulized Duonebs, as well as Symbicort and Spiriva, which she has been maintained on for COPD management. The necessity of continuing Combivent at home is deferred to her primary care provider. Blood are negative to date (96h. Jackie?s history includes a previously noted right upper lobe lung mass discovered two years ago, for which she refused further workup, stating that she would not consider surgery or chemotherapy if the lesion were malignant. A recent CT scan showed that the lung lesion remains unchanged in size but revealed additional lung lesions and a pleural-based lesion, raising concerns for possible malignancy or infection. Despite these findings, she continues to refuse a pulmonary workup or specialist follow-up. Jackie lives with her son in [place], [place], and has limited social connections. She has now reconsidered home oxygen and will have it available to her in her home. This was set up through [facility]. Jackie is discharged to home with cefpodoxime 200 mg twice a day for 5 days. Home health nursing, physical therapy and psychosocial rehabilitation counselor has been requested. Home Meds and New Rx's Prescriptions: New prednisone 20 mg tablet 40 mg PO DAILY Qty: 10 0RF guaifenesin [Mucinex] 600 mg tablet extended release 12hr 600 mg PO BID Qty: 10 0RF benzonatate 100 mg capsule 100 mg PO BID PRNQty: 10 0RF Bio-K plus 50 billion cell capsule,delayed release(DR/EC) 1 cap PO DAILY Qty: 5 0RF ipratropium-albuterol 0.5 mg-3 mg(2.5 mg base)/3 mL solution for nebulization 3 ml inhalation QID Qty: 180 0RF cefpodoxime 200 mg tablet 200 mg PO BID Qty: 10 0RF Rx Instructions: must administer with a meal/food Continued amlodipine 10 mg tablet 10 mg PO BID Qty: 180 3RF digoxin 125 mcg (0.125 mg) tablet 125 mcg PO QAM Qty: 90 4RF esomeprazole magnesium 40 mg capsule,delayed release(DR/EC) 40 mg PO DAILY Qty: 90 3RF fluticasone propion-salmeterol [Advair Diskus] 250-50 mcg/dose blister with device 1 inh Inhalation BID Qty: 3 4RF furosemide 20 mg tablet See Rx Instructions .ROUTE .COMPLEX Qty: 135 4RF Dose Instruction: TAKE 1 TABLET (20MG) BY MOUTH EVERY OTHER DAY ALTERNATING WITH TAKING 2 TABLETS (40MG) BY MOUTH EVERY OTHER DAY Rx Instructions: TAKE 1 TABLET (20MG) BY MOUTH EVERY OTHER DAY ALTERNATING WITH TAKING 2 TABLETS (40MG) BY MOUTH EVERY OTHER DAY Combivent Respimat 20-100 mcg/actuation mist 1 puff IH QID Qty: 12 4RF Rx Instructions: space evenly during waking hours montelukast 10 mg tablet 10 mg PO DAILY Qty: 90 3RF acetaminophen 500 mg Tablet 1,000 mg PO PRN PRN albuterol sulfate 90 mcg/actuation HFA aerosol inhaler 2 puff inhalation Q6H PRNQty: 8.5 0RF Discharge Instructions Instructions: Chronic obstructive pulmonary disease (COPD), Cefpodoxime Stand Alone Forms: Nursing Discharge Form Referrals: Deven Collier ACTIVITIES DIRECTOR [Primary Care Provider] - (Post hospitalization 1-2 weeks Now on home oxygen) Activity:: Activity as Tolerated Equipment/Supplies:: No Equipment Needed Diet:: As Tolerated Discharge Orders Discharge Orders: Discharge Order (Routine); Ordered 06/03/24 Ordered By: Gladys Leo DS: Summary Time Spent with Patient providing and/or coordinating discharge services: Greater than 30 minutes Status at Discharge Functional status at discharge: uses cane/walker Overall status at discharge: patient is progressing back to baseline (new home oxygen requirement) Mental Status: mental status grossly normal Speech and Movement: speech and movement normal Mood: congruent mood Affect: normal affect Quality:SDOH Health Related Social Needs: Health related social needs inadequate housing Health related social needs details lives with son Health related social needs details: lives with son Exam Narrative Exam Narrative: Neuro:alert and oriented to self, person, place time and situation. No neurological focal deficit Resp: Clear bilaterally diminished Cardio: regular rhythm, S1, S2, positive radial and pedal pulses, no edema GI: Abdomen is not distended, soft and non tender, bowel sounds are present Integumentary: No skin lesions or rash on exposed skin Extremities: strength 5/5 to bilateral lower and upper extremities Psych: RASS 0, congruent mood and normal affect. Psych Mental Status: mental status grossly normal Speech and Movement: speech and movement normal Mood: congruent mood Affect: normal affect DS: Data Vitals/I&O Vitals and I&O: Vital Signs Temperature 36.9 C 06/03/24 07:24 Temperature Source Skin 06/03/24 07:24 Pulse 82 06/03/24 11:28 Pulse Rhythm Irregular 06/02/24 01:34 Pulse 84 05/29/24 09:31 Respiratory Rate 26 H 06/03/24 08:05 Respiratory Effort Normal, Short of Breath, Labored 06/02/24 01:34 Respiratory Depth Shallow 06/02/24 01:34 Respiratory Pattern Normal 06/02/24 01:34 Blood Pressure 148/71 H 06/03/24 07:24 Blood Pressure Mean 79 05/29/24 09:31 Pulse Oximetry 92 06/03/24 11:19 Oxygen Delivery Method Nasal Cannula 06/03/24 11:19 Oxygen Flow Rate 1 06/03/24 11:19 Pain Level 6 06/03/24 07:24 Comment Pain 0 with severe discomfort 06/02/24 18:22 Intake & Output 06/02/24 06/03/24 06/03/24 23:59 11:59 23:59 Intake Total 200 / 410 850 / 850 Balance 200 / 410 850 / 850 Weight 69.4 kg Intake: IV 200 / 410 250 / 250 Oral 600 / 600 Other: Urine Color Yellow Pale Urine Appearance Clear Urine Odor None Comment clear yellow urine mixed with stool in bedside commode Stool Size Moderate Moderate Stool Characteristics Formed Soft Brown Voiding Methods Bedside Commode Bedside Commode Data Completed and Pending Labs on day of discharge: Labs from last 24 hours 06/03/24 06:01 WBC 9.70 RBC 4.24 Hgb 10.4 L Hct 35.8 L MCV 84 MCH 24.5 L MCHC 29.1 L RDW 16.7 H Plt Count 279 MPV 10.0 Immature Gran % 0.6 Neutrophils % 75.9 Lymphocytes % 7.6 Monocytes % 15.5 Eosinophils % 0.3 Basophils % 0.1 Nucleated RBC % 0.0 Absolute Neutrophils 7.36 H Absolute Lymphocytes 0.74 L Absolute Monocytes 1.50 H Absolute Eosinophils 0.03 Absolute Basophils 0.01 Sodium 128 L Potassium 4.6 Chloride 94 L Carbon Dioxide 34.6 H Anion Gap -0.6 L BUN 26 H Creatinine 1.0 Est GFR (CKD-EPI 2020) 59.12 Glucose 100 Calcium 9.5 Magnesium 1.9 Preliminary micro results at discharge 05/29/24 10:20 Blood Culture - Preliminary Blood NO GROWTH 96 HOURS PFSH All Active Problems (Updated 06/03/24 @ 00:07 by FERNIE HE) Advanced care planning/counseling discussion (Acute) Palliative care patient (Acute) Acute and chronic respiratory failure (alehk-at-vivlium) (Acute) Leukocytosis (Acute) Bilateral lower extremity edema (Acute) CAP (community acquired pneumonia) (Acute) COPD exacerbation (Acute) Do not intubate, perform CPR, or defibrillate (Acute) 2018 COLST. Confirmed with new May 2024 COLST: +transfer to hospital, +abx,+IV fluids, No feeding tube CHF (congestive heart failure) (Chronic) Cervical arthritis with myelopathy (Acute) Acute exacerbation of chronic obstructive pulmonary disease (COPD) (Acute) Arthritis (Acute 02/10/13) Osteoporosis (Acute 01/14/08) Tachycardia (Chronic) HTN (hypertension) (Chronic) GERD (gastroesophageal reflux disease) (Chronic) Medical History Abnormal chest CT Acute on chronic diastolic CHF (congestive heart failure) Acute on chronic respiratory failure with hypoxia and hypercapnia CAP (community acquired pneumonia) Chronic obstructive lung disease h/o tobacco use, quit 2008 COVID-19 -associated with COPD exacerbation COVID-19 GERD (gastroesophageal reflux disease) HTN (hypertension) Parotid mass Resolved after 3 months without intervention Tobacco dependence due to cigarettes Quit smoking when she was 59 years old Surgical History Endoscopic Carpal Tunnel release (03/31/13) Left 7.2.13 Family History (Updated 06/24/23 @ 13:35 by Maty Torres) Mother Essential hypertension Hyperlipidemia Adopted Dementia Father Heart disease Neoplasm LUNG Lung cancer Sister No problems noted. Sister No problems noted. Brother No problems noted. Brother No problems noted. Maternal Grandfather Stroke Paternal Grandfather Heart disease Maternal Grandmother Heart disease Paternal Grandmother Stroke Son Diabetes Essential hypertension Daughter No problems noted. Social History Smoking/Tobacco Use Status: Former Tobacco Use tobacco type: cigarettes Quit Date: 09/30/13 Tobacco: How many years used: 50 Second Hand Exposure: Yes Smoking risk assessment performed?: Yes Alcohol Intake: never Drug use: Never Substance use type: does not use Counseling given: No Counseling provided: none Caregiver/Support person: No Household members: family Housing: house Communication Needs: None Do you need help understanding health information?: Never Pets and animals: Yes Pets and animals: dog(s) Sexually active: No Do you think of yourself as: straight/heterosexual Current gender identity: female What is your relationship status?: How often do you talk on the phone with friends or family?: three or more times per week How often do you get together with friends or relatives?: three or more times per week Do you belong to any clubs or organized social groups?: no Panel score (0-1 are the most socially isolated patients): 1 What type of physical activity do you participate in: none Special juan needs: No Seatbelt use: sometimes Helmet use: No Drive intox or ride w/intox skip load driver: No Do you feel safe at home: Yes Do you feel safe in your relationship?: Yes Time Spent with Patient Time Spent with Patient: 45-69 minutes Time was spent: preparing to see the patient(eg.review tests), ordering medications,tests, procedures, referring, communicating with other health child care cook, indepentently interpreting results, counseling the patient and care coordination
--- NOTE | 2024-06-03 13:07 | PDOC.CMDIS ---
Date of service: 06/03/24 Time of Service: 13:07 LACE Index Scoring Tool Questions: Length of Stay (in days): 4 - 6 Was the patient admitted via the E.D.?: Yes Comorbidities: Cerebrovascular Disease, Congestive Heart Failure and Chronic Pulmonary Disease E.D. Visits: 1 Answers: Total Score: 13 Risk of Readmission: High Risk Care Management Discharge Plan Reason for Hospitalization: CAP, COPD Discharge Plan: Jackie is discharged home with New [facility] services and [facility]. Pt is transported via private vehicle with her son. Jackie will follow up with community providers and agrees to her discharge plan of care as instructed. Patient/Family Education Needs: Review discharge instructions, limitations, medications and plan to follow up with community providers. Discuss ask me three. Services Needed at Discharge: Home Health Care Services (New [facility] RN,PT,[employer], coordinated by CM) and Oxygen Therapy (Through [facility], delivered prior to discharge. ) SDOH Health Related Social Needs: Health related social needs inadequate housing Health related social needs details lives with son Health related social needs: inadequate housing(Z59.1) Health related social needs details: lives with son
== END 2024-06-03 14:18 | disposition home health service (06) | DRG 193 ==
LOC: ER 09:13 → MS 10:35
PROVIDERS: Nurse Practitioner Acute Care; Nurse Practitioner Family; Admitting Provider Family Medicine; Emergency Provider Emergency Medicine; PCP Nurse Practitioner Family; Visit Provider Family Medicine
DX: J18.9 Pneumonia, unspecified organism (principal); J96.21 Acute and chronic respiratory failure with hypoxia; J96.22 Acute and chronic respiratory failure with hypercapnia; J44.0 Chronic obstructive pulmonary disease with (acute) lower respiratory infection; I50.32 Chronic diastolic (congestive) heart failure; J44.1 Chronic obstructive pulmonary disease with (acute) exacerbation; C34.11 Malignant neoplasm of upper lobe, right bronchus or lung; M47.12 Other spondylosis with myelopathy, cervical region; I11.0 Hypertensive heart disease with heart failure; D72.829 Elevated white blood cell count, unspecified; Z66 Do not resuscitate; Z51.5 Encounter for palliative care; R59.0 Localized enlarged lymph nodes; Z87.891 Personal history of nicotine dependence; K21.9 Gastro-esophageal reflux disease without esophagitis; M81.0 Age-related osteoporosis without current pathological fracture; R00.0 Tachycardia, unspecified
CPT/HCPCS: 00123; 36415; 71275; 80048; 80053; 82805; 84145; 87040; 87637; 93005; 94618; 94640; 96365; 96367; 96375; 97110; 97161; 97530; 99285; J1650; 80162; 83735; 83880; 84484; 85025; 85610; 85730; 93010; 94664; 94667; 94668; 94760; 99222; 99231; 99233; 99239; J0692; J0696; J1941; J2919; J3475; J3490; J7512; J7620

== ENCOUNTER 2024-06-19 06:10 | Inpatient (IN) | payer OTHER, SELFPAY ==
[2024-06-19] VITALS (74 sets, daily range): BP systolic 122–168; BP diastolic 47–74; PULSE 77–113; RESP 16–39; TEMP 36.4–37; O2SAT 73–100
--- NOTE | 2024-06-19 06:00 | RT.EKG_ITS ---
APPROVED REPORT Exam: Resting ECG Reason for Exam: possible herat attack Patient Location: E HR:97 bpm ECG Measurements Heart Rate 97 AXIS ME 168 P 80 QRSd 83 QRS 103 QT 332 T 45 QTc 425 Conclusion Unknown rhythm, irregular rate...V-rate 77-125, variation>10% Right axis deviation...QRS axis ( 78,223) Physician: no stemi
--- NOTE | 2024-06-19 06:22 | ED.GENADUL_ITS ---
Discharge Plan Discharge Details Chief Complaint: Chest Pain Primary Care Provider: Deven Collier ED Provider: Levy Sutton Home Meds and New Rx's Prescriptions: No Action Combivent Respimat 20-100 mcg/actuation mist 1 puff IH QID Qty: 12 4RF Rx Instructions: space evenly during waking hours amlodipine 10 mg tablet 10 mg PO BID Qty: 180 3RF digoxin 125 mcg (0.125 mg) tablet 125 mcg PO QAM Qty: 90 4RF esomeprazole magnesium 40 mg capsule,delayed release(DR/EC) 40 mg PO DAILY Qty: 90 3RF fluticasone propion-salmeterol [Advair Diskus] 250-50 mcg/dose blister with device 1 inh Inhalation BID Qty: 3 4RF furosemide 20 mg tablet See Rx Instructions .ROUTE .COMPLEX Qty: 135 4RF Dose Instruction: TAKE 1 TABLET (20MG) BY MOUTH EVERY OTHER DAY ALTERNATING WITH TAKING 2 TABLETS (40MG) BY MOUTH EVERY OTHER DAY Rx Instructions: TAKE 1 TABLET (20MG) BY MOUTH EVERY OTHER DAY ALTERNATING WITH TAKING 2 TABLETS (40MG) BY MOUTH EVERY OTHER DAY montelukast 10 mg tablet 10 mg PO DAILY Qty: 90 3RF Bio-K plus 50 billion cell capsule,delayed release(DR/EC) 1 cap PO DAILY Qty: 90 1RF benzonatate 100 mg capsule 100 mg PO BID PRN (Reason: cough) Qty: 30 0RF diclofenac potassium 25 mg capsule 25 mg PO BID Qty: 30 1RF acetaminophen 500 mg Tablet 1,000 mg PO PRN PRN albuterol sulfate 90 mcg/actuation HFA aerosol inhaler 2 puff inhalation Q6H PRNQty: 8.5 0RF prednisone 20 mg tablet 40 mg PO DAILY Qty: 10 0RF guaifenesin [Mucinex] 600 mg tablet extended release 12hr 600 mg PO BID Qty: 10 0RF ipratropium-albuterol 0.5 mg-3 mg(2.5 mg base)/3 mL solution for nebulization 3 ml inhalation QID Qty: 180 0RF cefpodoxime 200 mg tablet 200 mg PO BID Qty: 10 0RF Rx Instructions: must administer with a meal/food HPI General Date/Time Provider Initiated Documentation: 06/19/24 06:10 . HPI Narrative: 73-year-old female with a past medical history of being DNR/DNI, previous CVA, COPD recently started on 2 L of oxygen at baseline, recent community-acquired pneumonia with discharge about 2 weeks ago with a short course of cefpodoxime, known lung mass with potential pleural extension lesions, who has refused outpatient workup, and refused surgical intervention, who presents today for evaluation of chest pain. Patient states that she awoke at at 2 AM felt that her heart was racing and had significant chest pain which she describes as severe heaviness. It lasted about 3 minutes and then resolved on its own. She felt much better and was brought in here for further assessment. She denies fever or chills. She states that her lungs have been improving since her last discharge. She denies any arm neck or shoulder pain. She denies any chest pain heaviness or tightness whatsoever at this time. She has a distant history of smoking, family history of cardiac disease. No other complaints at this time. Related Data Home Medications ?Medication ?Instructions ?Recorded ?Confirmed acetaminophen 500 mg tablet 1,000 mg PO PRN PRN 10/23/19 06/08/24 albuterol sulfate 90 mcg/actuation 2 puff inhalation Q6H PRN #8.5 06/07/22 06/08/24 aerosol inhaler grams guaifenesin 600 mg tablet, 600 mg PO BID #10 tabs 05/31/24 06/08/24 extended release 12 hr (Mucinex) prednisone 20 mg tablet 40 mg (2 x 20 mg) PO DAILY #10 tabs 05/31/24 06/08/24 cefpodoxime 200 mg tablet 200 mg PO BID #10 tabs 06/02/24 06/08/24 ipratropium 0.5 mg-albuterol 3 mg 3 ml inhalation QID #180 mL 06/02/24 06/08/24 (2.5 mg base)/3 mL nebulization soln L. acidophilus,casei,rhamnosus 50 1 cap PO DAILY #90 caps 06/08/24 06/08/24 billion cell capsule,delayed release (Bio-K plus) amlodipine 10 mg tablet 10 mg PO BID #180 tabs 06/08/24 06/08/24 benzonatate 100 mg capsule 100 mg PO BID PRN cough #30 caps 06/08/24 06/08/24 digoxin 125 mcg (0.125 mg) tablet 125 mcg PO QAM #90 tabs 06/08/24 06/08/24 esomeprazole magnesium 40 mg 40 mg PO DAILY #90 caps 06/08/24 06/08/24 capsule,delayed release fluticasone 250 mcg-salmeterol 50 1 inh inhalation BID #3 ea 06/08/24 06/08/24 mcg/dose blistr powdr for inhalation (Advair Diskus) furosemide 20 mg tablet See Rx Instructions .Route 06/08/24 06/08/24 .COMPLEX #135 tabs ipratropium 20 mcg-albuterol 100 1 puff inhalation QID #12 grams 06/08/24 06/08/24 mcg/actuation mist for inhalation (Combivent Respimat) montelukast 10 mg tablet 10 mg PO DAILY #90 tab-caps 06/08/24 06/08/24 diclofenac potassium 25 mg capsule 25 mg PO BID #30 caps 06/11/24 06/11/24 Previous Rx's ?Medication ?Instructions ?Recorded albuterol sulfate 90 mcg/actuation 2 puff inhalation Q6H PRN #8.5 06/07/22 aerosol inhaler grams guaifenesin 600 mg tablet, 600 mg PO BID #10 tabs 05/31/24 extended release 12 hr (Mucinex) prednisone 20 mg tablet 40 mg (2 x 20 mg) PO DAILY #10 tabs 05/31/24 cefpodoxime 200 mg tablet 200 mg PO BID #10 tabs 06/02/24 ipratropium 0.5 mg-albuterol 3 mg 3 ml inhalation QID #180 mL 06/02/24 (2.5 mg base)/3 mL nebulization soln L. acidophilus,casei,rhamnosus 50 1 cap PO DAILY #90 caps 06/08/24 billion cell capsule,delayed release (Bio-K plus) amlodipine 10 mg tablet 10 mg PO BID #180 tabs 06/08/24 benzonatate 100 mg capsule 100 mg PO BID PRN cough #30 caps 06/08/24 digoxin 125 mcg (0.125 mg) tablet 125 mcg PO QAM #90 tabs 06/08/24 esomeprazole magnesium 40 mg 40 mg PO DAILY #90 caps 06/08/24 capsule,delayed release fluticasone 250 mcg-salmeterol 50 1 inh inhalation BID #3 ea 06/08/24 mcg/dose blistr powdr for inhalation (Advair Diskus) furosemide 20 mg tablet See Rx Instructions .Route 06/08/24 .COMPLEX #135 tabs ipratropium 20 mcg-albuterol 100 1 puff inhalation QID #12 grams 06/08/24 mcg/actuation mist for inhalation (Combivent Respimat) montelukast 10 mg tablet 10 mg PO DAILY #90 tab-caps 06/08/24 diclofenac potassium 25 mg capsule 25 mg PO BID #30 caps 06/11/24 Allergies Allergy/AdvReac Type Severity Reaction Status Date / Time lorazepam (From Ativan) Allergy Severe Anaphylaxis Verified 06/19/24 06:19 diltiazem Allergy Intermediate LE and Verified 06/19/24 06:19 Facial Edema hydrochlorothiazide Allergy Mild rash Verified 06/19/24 06:19 Sulfa (Sulfonamide Allergy Unknown Other (See Verified 06/19/24 06:19 Antibiotics) Comment) metoprolol AdvReac Intermediate Fluid Verified 06/19/24 06:19 Retention lisinopril AdvReac Mild did not Verified 06/19/24 06:19 feel well General Stated Complaint: Chest Pain KAYCE: 3 Review of Systems All systems reviewed & are unremarkable except as noted in HPI and below Exam Narrative Exam Narrative: 1.Const: Well-nourished, Well-developed, appearing stated age 2.Eyes: PERRL, no conjunctival injection, and symmetrical lids. 3.ENT: Atraumatic external nose and ears. Moist MM. Neck: Symmetric, trachea midline, No thyromegaly. 4.CVS: +S1/S2, No murmurs or gallops. Peripheral pulses 2+ and equal in all extremities. Brisk capillary refill in all extremities. 5.RESP: 3-4 word conversational dyspnea. Reduced lung sounds throughout. No rhonchi or rales. Minimal wheezes. 6.GI: Soft, Nontender/Nondistended, No hepatosplenomegaly. No guarding or rebound. 7.MSK: Normocephalic/Atraumatic, Extremities w/o deformity or ttp No cyanosis or clubbing, Normal movement of all extremities. No calf tenderness 8.Skin: Warm, Dry. No rashes or lesions. 9.Neuro: box feeder II-XII grossly intact. Sensation grossly intact, no focal neurologic deficits. 10.Psych: (AAO) x3. Appropriate mood and affect Course Vital Signs Vital signs: Vital Signs Temperature 36.5 C 06/19/24 06:12 Pulse 101 H 06/19/24 06:12 Respiratory Rate 22 06/19/24 06:12 Blood Pressure 168/70 H 06/19/24 06:12 Pulse Oximetry 96 06/19/24 06:12 Temperature 36.5 C 06/19/24 06:12 Temperature Source Temporal Artery Scan 06/19/24 06:12 Pulse 101 H 06/19/24 06:12 Respiratory Rate 22 06/19/24 06:12 Blood Pressure 168/70 H 06/19/24 06:12 Blood Pressure Position Supine 06/19/24 06:12 Pulse Oximetry 96 06/19/24 06:12 Oxygen Delivery Method Non-Rebreather 06/19/24 06:12 Pain Level 0 06/19/24 06:12 Medical Decision Making 73-year-old female with a past medical history of being DNR/DNI, previous CVA, COPD recently started on 2 L of oxygen at baseline, recent community-acquired pneumonia with discharge about 2 weeks ago with a short course of cefpodoxime, known lung mass with potential pleural extension lesions, who has refused outpatient workup, and refused surgical intervention, who presents today for evaluation of chest pain. Patient states that she awoke at at 2 AM felt that her heart was racing and had significant chest pain which she describes as severe heaviness. It lasted about 3 minutes and then resolved on its own. She felt much better and was brought in here for further assessment. She denies fever or chills. She states that her lungs have been improving since her last discharge. She denies any arm neck or shoulder pain. She denies any chest pain heaviness or tightness whatsoever at this time. She has a distant history of smoking, family history of cardiac disease. No other complaints at this time. Exam demonstrates short of breath slightly tachypneic female, 2-3 word conversational dyspnea. Getting up walking ambulating to the bed the patient dropped down to the 60s on room air as she was transitioning from her nasal cannula. She was started on a nonrebreather at 12 L and eventually came back up to 100%. No chest pain at this time, no rash or signs of trauma. No calf tenderness. No pitting edema of the lower extremities to suggest severe CHF. Diminished respiratory sounds throughout, minimal wheezes. Suspect COPD and chronic lung disease component. EKG shows no evidence of STEMI, however with the patient's history and risk factors she certainly is at risk for ACS. PE is also on the differential especially considering her suspected malignancy. Will get a CTA, give a breathing treatment for COPD component, give 325 aspirin, evaluate for concerning etiologies, monitor closely and reassess. 7:12 AM Laboratory workup shows no white count. VBG demonstrates a pH of 7.3 with a pCO2 of 65 which is relatively near her baseline. Electrolytes stable, initial troponin is 21, pending procalcitonin. Digoxin level is slightly subtherapeutic at 0.72., We have given her her morning dose. Pending CT scan. Patient will be signed out to my colleague Dr. Romo for follow-up on imaging and repeat troponin. Quality:SDOH Health Related Social Needs: Health related social needs inadequate housing Health related social needs details lives with son ASHLEE All Active Problems Acute and chronic respiratory failure ([id number]) (Acute) CAP (community acquired pneumonia) (Acute) COPD exacerbation (Acute) Cervical arthritis with myelopathy (Acute) Arthritis (Acute 02/10/13) Osteoporosis (Acute 01/14/08) Tachycardia (Chronic) GERD (gastroesophageal reflux disease) (Chronic) Medical History Bilateral lower extremity edema Acute respiratory failure with hypoxia HTN (hypertension) COVID-[address] Tobacco dependence due to cigarettes Quit smoking when she was 59 years old COVID-19 -associated with COPD exacerbation Parotid mass Resolved after 3 months without intervention Acute on chronic respiratory failure with hypoxia and hypercapnia Acute on chronic diastolic CHF (congestive heart failure) Chronic obstructive lung disease h/o tobacco use, quit 2008 CAP (community acquired pneumonia) GERD (gastroesophageal reflux disease) HTN (hypertension) Surgical History Endoscopic Carpal Tunnel release (03/31/13) Left 7.2.13 Family History Mother Essential hypertension Hyperlipidemia Adopted Dementia Father Heart disease Neoplasm LUNG Lung cancer Sister No problems noted. Sister No problems noted. Brother No problems noted. Brother No problems noted. Maternal Grandfather Stroke Paternal Grandfather Heart disease Maternal Grandmother Heart disease Paternal Grandmother Stroke Son Diabetes Essential hypertension Daughter No problems noted. Social History Smoking/Tobacco Use Status: Former Tobacco Use tobacco type: cigarettes Quit Date: 09/30/13 Tobacco: How many years used: 50 Second Hand Exposure: Yes Smoking risk assessment performed?: Yes Alcohol Intake: never Drug use: Never Substance use type: does not use Counseling given: No Counseling provided: none Caregiver/Support person: No Household members: family Housing: house Communication Needs: None Do you need help understanding health information?: Never Pets and animals: Yes Pets and animals: dog(s) Sexually active: No Do you think of yourself as: straight/heterosexual Current gender identity: female What is your relationship status?: How often do you talk on the phone with friends or family?: three or more times per week How often do you get together with friends or relatives?: three or more times per week Do you belong to any clubs or organized social groups?: no Panel score (0-1 are the most socially isolated patients): 1 What type of physical activity do you participate in: none Special juan needs: No Seatbelt use: sometimes Helmet use: No Drive intox or ride w/intox driver license agent: No Do you feel safe at home: Yes Do you feel safe in your relationship?: Yes
[2024-06-19 06:31] LABS: Abs Immature Grans 0.03 10^3/uL (0.0-0.06); Absolute Basophil Count 0.06 10^3/uL (0.0-0.2); Absolute Eosinophil Count 0.39 10^3/uL (0.0-0.7); Absolute Lymphocyte Count 0.62 10^3/uL (1.2-3.4); Absolute Monocyte Count 0.78 10^3/uL (0.1-0.8); Absolute Neutrophil Count 6.46 10^3/uL (1.2-6.7); BE (Venous) 5 mmol/L (-2-3); Basophils % 0.7 %; Eosinophils % 4.7 %; HCO3 (Venous) 32 mmol/L (23-28); HGB 10.9 g/dL (11.2-15.7); Immature Grans % 0.4 %; Lymphocytes % 7.4 %; MCH 25.3 pg (27.0-33.0); MCHC 28.7 % (32.0-36.0); MCV 88 fL (80-95); MPV 9.3 fL (8.0-11.0); Monocytes % 9.4 %; Neutrophils % 77.4 %; O2 Sat (Venous) 96 %; Platelet Count 360 10^3/uL (130-400); RBC 4.31 10^6/uL (3.93-5.22); RDW 17.6 % (11.7-14.6); TCO2 (Venous) 30 mmol/L (24-29); WBC 8.34 10^3/uL (4.4-10.8); pO2 (Venous) 84 mmHg
[2024-06-19 06:33] LABS: pCO2 (Venous) 65 mmHg (41-51)
[2024-06-19] MEDS: Aspirin 81 MG CHEW 324 MG PO (06:33)
[2024-06-19] MEDS: Albuterol/Ipratropium 3 ML UPD VIAL 6 ML UPD (06:33)
[2024-06-19 06:46] LABS: INR 0.9 (0.9-1.1); PTT Activated 28.3 sec (23.6-32.8); Prothrombin Time 9.5 sec (9.1-11.1)
[2024-06-19 06:51] LABS: ALT 25 U/L (14-59); AST 15 U/L (15-37); Albumin 3.4 g/dL (3.4-5.0); Alkaline Phosphatase 115 U/L (46-116); Anion Gap 6.4 mmol/L (3-11); BUN 13 mg/dL (7-18); Bilirubin, Total 0.24 mg/dL (0.2-1.0); CO2 31.6 mmol/L (21.0-32.0); CREATININE 0.8 mg/dL (0.55-1.02); Calcium 9.7 mg/dL (8.5-10.1); Chloride 99 mmol/L (98-107); Estimated GFR 77.27 (mL/min/1.73m2); Glucose 118 mg/dL (74-106); Potassium 4.4 mmol/L (3.5-5.1); Sodium 137 mmol/L (136-145); Total Protein 7.8 g/dL (6.4-8.2); Troponin I 21 ng/L (<or=51)
[2024-06-19 06:56] LABS: Digoxin 0.72 ng/mL (0.90-2.00)
[2024-06-19 07:13] LABS: Procalcitonin < 0.1 ng/mL
[2024-06-19] MEDS: Omnipaque 350 MG/ML 100 ML BTL IJ (07:22)
[2024-06-19] MEDS: Normal Saline - Diluent 50 ML VIAL IJ (07:33)
--- NOTE | 2024-06-19 07:40 | DI.CT_ITS ---
Exam(s) CT CHEST PE CTA EXAM: CT CHEST PE CTA CLINICAL HISTORY: chest pain, SOB, recent pneumonia. TECHNIQUE: Imaging Protocol: Axial CT angiography was performed with multi-slice acquisition and mu lti-planar reconstructions as well as axial, coronal and sagittal MIP reconstructions. CONTRAST MATERIAL: Intravenous: Omnipaque 350 Contrast volume:70 ml COMPARISON: CT CT CHEST PE CTA from 05/30/[address] CHEST PE CTA from 05/29/2024 FINDINGS: Pulmonary Arteries: No evidence of filling defect to suggest pulmonary emboli. Tracheobronchial tree: No mucous plugging. Mediastinum and Amberly: No dominant adenopathy or fluid collection. Pulmonary parenchyma: Underlying emphysematous changes greater in upper lobe. Stable area of scarrin g noted in the right upper lobe. Mild improvement in infiltrate seen in the right lower lobe. Stabl e mild scarring in left upper lobe. Pleura: No effusion or pneumothorax. Heart: The heart is not dilated. Mild coronary artery calcifications are seen. Aorta: Thoracic aorta non-dilated. No dissection. Upper abdomen: No acute findings. Bones: Unremarkable for age. Tubes, Catheters, and Lines: None Soft tissues: Unremarkable. IMPRESSION: No evidence of pulmonary embolism. Some improvement in right lower lobe infiltrate however significant densities persist. The remainder of the lung das appear stable. There is significant chronic appearing scarring in the right uppe r lobe. Underlying emphysematous changes greater in the upper lobes. RADIATION DOSE DELIVERED: 69.27mGy.cm Total DLP DATA REPOSITORY: All CT scans at this facility are submitted to the National Radiology Data Registry (NRDR) Dose Index Registry (DIR) with the [employer] (ACR). RADIATION OPTIMIZATION: All CT scans at this facility use at least one of these dose optimization te chniques: automated exposure control; mA and/or kV adjustment per patient size (includes targeted exa ms where dose is matched to clinical indication); or iterative reconstruction.
[2024-06-19] MEDS: Digoxin 0.125 MG TAB PO (07:42)
[2024-06-19 08:08] LABS: Troponin I 21 ng/L (<or=51)
--- NOTE | 2024-06-19 08:17 | ED.PROG_ITS ---
Date of service: 06/19/24 Time of Service: 08:17 Medical Decision Making I received signout this 73-year-old female with acute on chronic respiratory failure. She is pending a CT scan. She has a history of atrial fibrillation and she is not anticoagulated. She had slightly subtherapeutic digoxin level but receive her daily home digoxin level. She is on slightly increased nasal cannula oxygen at 4 L. At home she generally takes 2 L. Will reassess following CT report. 8:34 AM Repeat troponin with delta of 0. 9:15 AM Patient got up to go to the bathroom. Wearing her 2 L of oxygen she quickly desaturated into the 60s and became cyanotic with increased work of breathing respiratory rates greater than 30. Based on her persistent right lower lobe pneumonia and her history of COPD I am concerned for the possibility of failed outpatient treatment for community-acquired pneumonia. Also given her COPD I am concerned for the possibility of pulmonary hypertension so we will update patient's echo. Will reach out to the hospitalist team with request for hospitalization. Patient has an elevated port score at 144 points making her class V risk with that 27 to 29% mortality for which hospitalization is recommended. Will treat with doxycycline and ampicillin-sulbactam. I updated the patient and family at bedside. 9:27 AM I was in touch with Dr. Regan from the hospitalist team concerning this patient. He graciously agreed to accept the patient and will put hospitalization orders in. Patient will remain as an ED boarder given limited availability of beds upstairs at the moment. Quality:SDOH Health Related Social Needs: Health related social needs inadequate housing Health related social needs details lives with son Sign Out Sign Out Data: Sign Out Comment: Chest pain, shortness of breath, hypoxic in the 60s. Pending repeat troponins and CTA. Reassess respiratory status. Last updated by Levy Sutton DO at 06/19/24 07:16 Discharge Plan Disposition Patient Disposition: Admit to [facility] Discharge Details Clinical Impression: Acute on chronic respiratory failure with hypoxia and hypercapnia Admit Date/Time: 06/19/24 09:29 Admit Provider: Feng Regan Attending Provider: Feng Regan Primary Care Provider: Deven Collier ED Provider: Otilio Romo Discharge Data Discharge Date/Time-TO BE ENTERED AT DEPARTURE: 06/19/24 15:19
--- NOTE | 2024-06-19 09:00 | DI.US_ITS ---
APPROVED REPORT EXAM: Comprehensive 2D, Doppler, and color-flow Echocardiogram Patient Location: ER Room/Bed: 1 [employer] Manager: Darion Badillo RDCS (AE) Indications: Hypoxia Other Information Technically limited study due to body habitus, inability to position patient. Conclusion Normal left ventricular wall thickness and chamber size. Ejection fraction is 65%. Wall motion is n ormal Right ventricle is mildly enlarged and hypocontractile Both atria are normal in size There are no structural valvular abnormalities Estimated right ventricular systolic pressure is 52 mmHg Wall motion Left Ventricle Left ventricle is mildly dilated. The left ventricular systolic function is normal. The left ventricu lar ejection fraction is within the normal range. There is normal left ventricular wall thickness. Th ere is normal LV segmental wall motion. There is no ventricular septal defect visualized. LVEF is 65% . Right Ventricle The right ventricle is mildly dilated The right ventricular function is mildly reduced Atria The left atrium size is normal. The right atrium size is normal. The interatrial septum is intact wit h no evidence for an atrial septal defect. Aortic Valve The aortic valve is normal in structure. Aortic valve is trileaflet. There is no aortic valvular sten osis. No aortic regurgitation is present. Mitral Valve The mitral valve is normal in structure. No evidence of mitral valve stenosis. Trace to mild mitral r egurgitation. Tricuspid Valve The tricuspid valve is normal in structure. There is no tricuspid valve stenosis. Mild to moderate tr icuspid regurgitation. The RVSP is 51.9 mmHg. Pulmonic Valve The pulmonary valve is normal in structure. There is no pulmonic valvular stenosis. There is no pulmo lucia valvular regurgitation. Great Vessels The aortic root is normal in size. The ascending aorta is normal in size. Aortic arch is not well vis ualized. IVC is normal in size and collapses >50% with inspiration. Pericardium There is no pericardial effusion. 2D Dimensions IVSD d PLAX 0.68 cm F: 0.6-1.0 Ao Root d 2.62 cm F: 2.7 - 3.3 LVPW d PLAX 0.68 cm F: 0.6 - 1.0 Ao Asc Diam d 2.66 cm F: 2.3 - 3.1 LVID d PLAX 5.32 cm F: 3.8 - 5.2 LVDs 3.39 cm F: 2.2 - 3.5 LV EF Teichholz 65.5 % FS 36.27 % LV EDV (Teich) 136.3 mL LV ESV (Teich) 47.1 mL Stroke Vol Index (Teich) 54.44 M-Mode TAPSE 2.52 cm (M/F) >1.7 Auto EF LV EDV A4C 96.7 mL LV EDV A2C 112.1 mL LV EDV BP 105.1 mL LV ESV A4C 32.0 mL LV ESV A2C 35.6 mL LV ESV BP 33.5 mL LVEF(%) A4C 66.9 % LVEF(%) A2C 68.3 % LVEF(%) BP 68.1 % LV SV A4C 64.7 ml LV SV A2C 76.6 ml LV SV BP 71.6 ml LV CO A4C 8.3 L/min LV CO A2C 8.1 L/min LV CO BP 8.2 L/min HR A4C 128.57 BPM HR A2C 105.89 BPM LV EDV Index (BP) LA Volume LA Length A4C 5.0 cm LA Length A2C 6.1 cm LA Area A4C s 15.19 cm2 LA Area A2C s 18.11 cm2 LA Vol A4C A-L 39.02 mL LA Vol A2C A-L 45.34 mL LA Vol Biplane A-L 46.5 mL LA Vol/BSA A4C A-L LA Vol/BSA A2C A-L LA Vol/BSA BP A-L 28.4 mL/m2 LA Vol A4C MOD 35.5 mL LA Vol A2C MOD 46.3 mL LA Vol BP MOD 42.6 mL RA Volume RA Area A4C 11.5 cm2 RA ESV A4C (A-L) 26.0mL RA Vol/BSA A4C A-L RA Length A4C 4.3 cm RA ESV A4C (MOD) 23.3mL LV Diastology MV E' medial 0.097 (>0.07 m/s) MV E Vmax 1.19 (0.4-1.3 m/s) MV E/E' MED 12.23 (<14) MV A Vmax 1.20 (0.4-1.3 m/s) MV E' lateral 0.097 (>0.1 m/s) E/A Ratio 1.0 MV E/E' LAT 12.23 (<14) MV E' Average 0.097 m/s MV E/E'(average) 12.23 Aortic Valve AoV Vmax 1.96 m/s LVOT Vmax 1.28 m/s AoV Peak Grad 15.4 mmHg LVOT Peak Grad 6.6 mmHg AoV Area (Vmax) 2.04 cm2 LVOT VTI 0.261 m AoV VTI 0.405 m LVOT Mean Grad 2.9 mmHg AoV Mean Hudson. 1.50 m/s LVOT SV 81.54 mL AoV Mean Grad 9.6 mmHg LVOT Diam s 1.95 cm AoV Area (VTI) 2.01 cm2 AV Regurg Peak Gr. 15.40 mmHg Velocity Ratio 0.65 Mitral Valve MV DT 279 (160-240 msec) MV Vmax TIPS 1.53 m/s MV Mean Grad 5.4 (<2mmHg) MV VTI 0.416 m Pulmonary Valve PV Vmax 1.34 (0.5-1.5 m/s) RVOT Vmax 0.82 m/s PV Peak Grad 7.2 mmHg RVOT Peak Gr. 2.7 mmHg PV Mean Hudson 0.89 m/s RVOT VTI 0.179 m PV Mean Grad 3.6 mmHg RVOT Mean Gr. 1.5 mmHg Tricuspid Valve RA Pressure 3.00 mmHg TR Vmax 3.50 m/s TR Peak Grad 48.9 mmHg RVSP (TR) 51.9 mmHg
[2024-06-19] MEDS: AMPICILLIN/SULBACTAM 3 GM in Normal Saline 100 ML IVPB ×2 (09:33→18:48)
[2024-06-19] MEDS: Doxycycline Hyclate 100 MG CAP PO (09:33)
--- NOTE | 2024-06-19 09:40 | DI.VRAD_ITS ---
PROCEDURE INFORMATION: Exam: CTA Chest With Contrast Exam date and time: 06/19/2024 7:25 AM Age: 73 years old Clinical indication: Pain; Shortness of breath; On breathing TECHNIQUE: Imaging protocol: Computed tomographic angiography of the chest with contrast. Exam focused on the arteries. 3D rendering (Not supervised by radiologist): MIP and/or 3D reconstructed images were created by the technologist. Radiation optimization: All CT scans at this facility use at least one of these dose optimization techniques: automated exposure control; mA and/or kV adjustment per patient size (includes targeted exams where dose is matched to clinical indication); or iterative reconstruction. Contrast material: OMNIPAQUE; Contrast volume: 70 ml; Contrast route: INTRAVENOUS (IV); COMPARISON: CT CHEST PE CTA 05/29/2024 8:24 AM FINDINGS: Pulmonary arteries: No main, lobar or segmental pulmonary arterial embolism. Aorta: Unremarkable. No aortic aneurysm. Lungs: There are patchy airspace opacities in the right lower lobe, new from 05/29/2024. There is right apical airspace opacity, similar to 05/29/2024 with morphology suggesting scarring/fibrosis. There is a less pronounced scarring/fibrosis in the left apex. There is moderate centrilobular and paraseptal emphysema. There are scattered subpleural reticular opacities. There is a 5 mm solid pulmonary nodule in the left upper lobe (series 4, image 160). Pleural spaces: Unremarkable. No pneumothorax. No pleural effusion. Heart: Unremarkable. No cardiomegaly. No pericardial effusion. Lymph nodes: Unremarkable. No enlarged lymph nodes. Bones/joints: Unremarkable. No acute fracture. Soft tissues: Unremarkable. IMPRESSION: 1. No pulmonary arterial embolism. 2. Patchy right lower lobe airspace opacities, new from 05/29/2024. Query aspiration. 3. 5 mm left upper lobe solid pulmonary nodule. For patients at low risk (minimal or absent history of smoking and of other known risk factors), no routine follow-up is indicated. For patients at high risk (history of smoking or of other known risk factors), consider optional CT Chest at 12 months. 4. Moderate emphysema with fibrosis. REFERENCES: Ramya Rees, et al. Guidelines for Management of Incidental Pulmonary Nodules Detected on CT Images: From the Fleischner Society 2017. Radiology. 2017;284(1):228-243. Dictated and Authenticated by: Jc Marks MD. Ordering:MARCO A Lockett MD
[2024-06-19 10:10] LABS: Troponin I 20 ng/L (<or=51)
[2024-06-19 10:40] LABS: COVID-19 PCR Negative (Negative); Influenza A PCR Negative (Negative); Influenza B PCR Negative (Negative); RSV PCR Negative (Negative); Source Nasopharynx
[2024-06-19] MEDS: Ipratropium/Albuterol 4 GM 120 PUFF INH IH ×2 (16:59→19:48)
--- NOTE | 2024-06-19 17:09 | HPE_ITS ---
Date of service: 06/19/24 Time of Service: 17:09 Assessment and Plan Assessment and plan (1) CAP (community acquired pneumonia): Status: Acute Assessment and plan: On doxycycline and Unasyn Mucinex Tessalon perle Albuterol/ ipratropium nebs PRN Home Albuterol INH IS Acapella O2 home requirement and as needed to maintain sat 88-92% (2) Acute and chronic respiratory failure ([id number]): Status: Acute Assessment and plan: As above (3) Hypoxia: Status: Acute Assessment and plan: As above Discussed with Dr. Regan (4) Chronic obstructive lung disease: Assessment and plan: Home CPAP PH 7.43 with PCO2 65 around baseline Discussed with Dr. Regan Qualifiers: COPD type: emphysema Emphysema type: unspecified Qualified Code(s): J 43.9 - Emphysema, unspecified History of Present Illness History of Present Illness Chief Complaint: Chest pain Narrative: This 73-year-old female patient with past medical history of CVA, COPD with recent home oxygen requirement for 2 L of O2, remote tobacco abuse history, recent acquired pneumonia discharged with cefpodoxime, long mask with potential pleural extension was refused outpatient workup and surgical intervention presented to the ED at [facility] today for evaluation of chest pain. The patient stated waking up at 2 AM feeling that her heart was racing with significant chest pain described as heavy and sev a couple of minutes and subsiding on its own. On arrival to the ED patient denied chills, fevers. Reported no further chest pain. Patient reported that respiratory status has not improved since her last discharge. The patient noted to be DNR/DNI as per ED provider notes. EKG showed sinus rhythm heart rate [address] elevation or significant ST depression. Significant workup in the ED, showed a pH of 7.3 with a pCO2 of 65 close to baseline, chemistry panel was stable, negative troponins x 2, digoxin level slightly subtherapeutic at 0.72, negative procalcitonin. CTA was ordered with concern of differential diagnostic of pulmonary emboli, aspirin 325mg was administered due to report of chest pain, and breathing treatment was administered for differential diagnosis of COPD. Furthermore, on admission to the bathroom on 2 L of oxygen the patient decompensated with a sat dropping into the 60s and respiratory rate up to the 30s. The service was consulted and patient admitted for acute on chronic hypoxic respiratory failure, community- acquired pneumonia. An echocardiogram was completed with the following result: Conclusion Normal left ventricular wall thickness and chamber size. Ejection fraction is 65%. Wall motion is normal Right ventricle is mildly enlarged and hypocontractile Both atria are normal in size There are no structural valvular abnormalities Estimated right ventricular systolic pressure is 52 mmHg CTA was completed with the following impressions: 1. No pulmonary arterial embolism. 2. Patchy right lower lobe airspace opacities, new from 05/29/2024. Query aspiration. 3. 5 mm left upper lobe solid pulmonary nodule. For patients at low risk (minimal or absent history of smoking and of other known risk factors), no routine follow-up is indicated. For patients at high risk (history of smoking or of other known risk factors), consider optional CT Chest at 12 months. 4. Moderate emphysema with fibrosis. When seen the patient reported feeling like she was going to faint during her chest pain episode at home but never blacked out. The patient denied dizziness, headache, chest pain, left arm pain or jaw pain, nausea, vomiting, diarrhea, constipation, or dysuria.The patient still reports shortness of breath with movement and ambulation. The patient confirmed DNR and DNI status Review of Systems All systems reviewed & are unremarkable except as noted in HPI and below PFSH All Active Problems Hypoxia (Acute) Acute on chronic respiratory failure with hypoxia and hypercapnia (Acute) Acute and chronic respiratory failure ([id number]) (Acute) CAP (community acquired pneumonia) (Acute) COPD exacerbation (Acute) Cervical arthritis with myelopathy (Acute) Arthritis (Acute 02/10/13) Osteoporosis (Acute 01/14/08) Tachycardia (Chronic) GERD (gastroesophageal reflux disease) (Chronic) Medical History Bilateral lower extremity edema Acute respiratory failure with hypoxia HTN (hypertension) COVID-[address] Tobacco dependence due to cigarettes Quit smoking when she was 59 years old COVID-19 -associated with COPD exacerbation Parotid mass Resolved after 3 months without intervention Acute on chronic respiratory failure with hypoxia and hypercapnia Acute on chronic diastolic CHF (congestive heart failure) Chronic obstructive lung disease h/o tobacco use, quit 2008 CAP (community acquired pneumonia) GERD (gastroesophageal reflux disease) HTN (hypertension) Surgical History Endoscopic Carpal Tunnel release (03/31/13) Left 7.2.13 Family History Mother Essential hypertension Hyperlipidemia Adopted Dementia Father Heart disease Neoplasm LUNG Lung cancer Sister No problems noted. Sister No problems noted. Brother No problems noted. Brother No problems noted. Maternal Grandfather Stroke Paternal Grandfather Heart disease Maternal Grandmother Heart disease Paternal Grandmother Stroke Son Diabetes Essential hypertension Daughter No problems noted. Social History Smoking/Tobacco Use Status: Former Tobacco Use tobacco type: cigarettes Quit Date: 09/30/13 Tobacco: How many years used: 50 Second Hand Exposure: Yes Smoking risk assessment performed?: Yes Alcohol Intake: never Drug use: Never Substance use type: does not use Counseling given: No Counseling provided: none Caregiver/Support person: No Household members: family Housing: house Communication Needs: None Do you need help understanding health information?: Never Pets and animals: Yes Pets and animals: dog(s) Sexually active: No Do you think of yourself as: straight/heterosexual Current gender identity: female What is your relationship status?: How often do you talk on the phone with friends or family?: three or more times per week How often do you get together with friends or relatives?: three or more times per week Do you belong to any clubs or organized social groups?: no Panel score (0-1 are the most socially isolated patients): 1 What type of physical activity do you participate in: none Special juan needs: No Seatbelt use: sometimes Helmet use: No 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 Do you feel safe at home: Yes Do you feel safe in your relationship?: Yes Meds Allergies and Home Medications Allergies Allergy/AdvReac Type Severity Reaction Status Date / Time lorazepam (From Ativan) Allergy Severe Anaphylaxis Verified 06/19/24 07:37 diltiazem Allergy Intermediate LE and Verified 06/19/24 07:37 Facial Edema hydrochlorothiazide Allergy Mild rash Verified 06/19/24 07:37 Sulfa (Sulfonamide Allergy Unknown Other (See Verified 06/19/24 07:37 Antibiotics) Comment) metoprolol AdvReac Intermediate Fluid Verified 06/19/24 07:37 Retention lisinopril AdvReac Mild did not Verified 06/19/24 07:37 feel well Home Medications ?Medication ?Instructions ?Recorded ?Confirmed ?Type acetaminophen 500 mg tablet 1,000 mg PO PRN PRN 10/23/19 06/19/24 History albuterol sulfate 90 mcg/actuation 2 puff inhalation Q6H PRN #8.5 06/07/22 06/19/24 Rx aerosol inhaler grams guaifenesin 600 mg tablet, 600 mg PO BID #10 tabs 05/31/24 06/19/24 Rx extended release 12 hr (Mucinex) ipratropium 0.5 mg-albuterol 3 mg 3 ml inhalation QID #180 mL 06/02/24 06/19/24 Rx (2.5 mg base)/3 mL nebulization soln amlodipine 10 mg tablet 10 mg PO BID #180 tabs 06/08/24 06/19/24 Rx benzonatate 100 mg capsule 100 mg PO BID PRN cough #30 caps 06/08/24 06/19/24 Rx digoxin 125 mcg (0.125 mg) tablet 125 mcg PO QAM #90 tabs 06/08/24 06/19/24 Rx esomeprazole magnesium 40 mg 40 mg PO DAILY #90 caps 06/08/24 06/19/24 Rx capsule,delayed release fluticasone 250 mcg-salmeterol 50 1 inh inhalation BID #3 ea 06/08/24 06/19/24 Rx mcg/dose blistr powdr for inhalation (Advair Diskus) furosemide 20 mg tablet See Rx Instructions .Route 06/08/24 06/19/24 Rx .COMPLEX #135 tabs ipratropium 20 mcg-albuterol 100 1 puff inhalation QID #12 grams 06/08/24 06/19/24 Rx mcg/actuation mist for inhalation (Combivent Respimat) montelukast 10 mg tablet 10 mg PO DAILY #90 tab-caps 06/08/24 06/19/24 Rx Exam Narrative Exam Narrative: HENMT: Facial structures with normal appearance Neuro:alert and oriented to self, person, place time and situation. No neurological focal deficit Resp:speaks 2-3 word in a row , labored breathing,RLL crackles, diminished left base Cardio: regular rhythm, S1, S2, no murmur, bilateral radial and dorsalis pedis pulses are positive GI: Abdomen is not distended, soft and non tender, bowel sounds are present Back/spine/Pelvis: normal alignment Integumentary: No skin lesions or rash Extremities: strength 5/5 to bilateral lower and upper extremities Psych: RASS 0, congruent mood and normal affect. Results Labs 06/19/24 06:23 06/19/24 06:23 Labs: Laboratory Results - last 24 hr 06/19/24 06/19/24 06/19/24 06:23 07:46 08:50 WBC 8.34 RBC 4.31 Hgb 10.9 L Hct 38.0 MCV 88 MCH 25.3 L MCHC 28.7 L RDW 17.6 H Plt Count 360 MPV 9.3 Immature Gran % 0.4 Neutrophils % 77.4 Lymphocytes % 7.4 Monocytes % 9.4 Eosinophils % 4.7 Basophils % 0.7 Nucleated RBC % 0.0 Absolute Neutrophils 6.46 Absolute Lymphocytes 0.62 L Absolute Monocytes 0.78 Absolute Eosinophils 0.39 Absolute Basophils 0.06 PT 9.5 INR 0.9 APTT 28.3 VBG pH 7.30 L VBG pCO2 65 H* VBG pO2 84 VBG HCO3 32 H VBG Total CO2 30 H VBG O2 Saturation 96 VBG Base Excess 5 H Sodium 137 Potassium 4.4 Chloride 99 Carbon Dioxide 31.6 Anion Gap 6.4 BUN 13 Creatinine 0.8 Est GFR (CKD-EPI 2020) 77.27 Glucose 118 H Calcium 9.7 Total Bilirubin 0.24 AST 15 ALT 25 Alkaline Phosphatase 115 Troponin I 21 21 Total Protein 7.8 Albumin 3.4 Procalcitonin < 0.1 Digoxin 0.72 L COVID-19 Source Nasopharynx SARS-CoV-2 (PCR) Negative Influenza Type A (PCR) Negative Influenza Type B (PCR) Negative RSV (PCR) Negative 06/19/24 09:42 WBC RBC Hgb Hct MCV MCH MCHC RDW Plt Count MPV Immature Gran % Neutrophils % Lymphocytes % Monocytes % Eosinophils % Basophils % Nucleated RBC % Absolute Neutrophils Absolute Lymphocytes Absolute Monocytes Absolute Eosinophils Absolute Basophils PT INR APTT VBG pH VBG pCO2 VBG pO2 VBG HCO3 VBG Total CO2 VBG O2 Saturation VBG Base Excess Sodium Potassium Chloride Carbon Dioxide Anion Gap BUN Creatinine Est GFR (CKD-EPI 2020) Glucose Calcium Total Bilirubin AST ALT Alkaline Phosphatase Troponin I 20 Total Protein Albumin Procalcitonin Digoxin COVID-19 Source SARS-CoV-2 (PCR) Influenza Type A (PCR) Influenza Type B (PCR) RSV (PCR) Last Vital Signs Temp 36.4 C L 06/19/24 15:31 Pulse 90 06/19/24 15:31 Resp 24 06/19/24 15:31 BP 136/74 06/19/24 15:31 Pulse Ox 90 L 06/19/24 15:31 Time Spent Time spent with Patient: >75 minutes Time was spent: preparing to see the patient(eg.review tests), obtaining and/or reviewing separately otained hiistory, ordering medications,tests, procedures, referring, communicating with other health child care coordinator, indepentently interpreting results, counseling the patient and care coordination
--- NOTE | 2024-06-19 17:11 | W.PC.ACHO ---
Registration Status: Primary Language: Preferred Language: ED Information & Data Chief Complaint Chest Pain 06/19/24 06:23 Triage Note Pt c/o non-radiating chest 06/19/24 06:12 pain/pressure that started at 0200. Pt states the pain was in the center of her chest which lasted approx 2 min. Pt recently dx w PNA a couple of weeks ago. No hx of VT but states there are family hx of such. Pt has home O2 2L and BIPAP. Pt arrives w O2 in the 70s. NRB immediately applied. Pt denies taking any meds this morning. Pt currently chest pain free. Pt w hx of COPD w chronic non- productive cough. Medical / Surgical History (Last Reviewed 06/19/24 @ 06:25 by Levy Sutton DO) Bilateral lower extremity edema Acute respiratory failure with hypoxia HTN (hypertension) COVID-[address] Tobacco dependence due to cigarettes COVID-19 Parotid mass Acute on chronic respiratory failure with hypoxia and hypercapnia Acute on chronic diastolic CHF (congestive heart failure) Chronic obstructive lung disease CAP (community acquired pneumonia) GERD (gastroesophageal reflux disease) HTN (hypertension) (Last Reviewed 06/19/24 @ 06:25 by Levy Sutton DO) Endoscopic Carpal Tunnel release (03/31/13) Most Recent Vital Signs Temperature 36.4 C L 06/19/24 15:31 Temperature Source Tympanic 06/19/24 15:29 Pulse 90 06/19/24 15:31 Pulse Rhythm Irregular 06/19/24 15:31 Pulse 90 06/19/24 08:40 Respiratory Rate 24 06/19/24 15:31 Respiratory Effort Short of Breath, Labored, Accessory Muscle Use, Nasal Flaring, Pursed Lip 06/19/24 15:31 Respiratory Depth Shallow 06/19/24 15:31 Respiratory Pattern Tachypnea 06/19/24 15:31 Blood Pressure 136/74 06/19/24 15:31 Blood Pressure Mean 90 06/19/24 08:01 Blood Pressure Position Supine 06/19/24 06:12 Pulse Oximetry 90 L 06/19/24 15:31 Oxygen Delivery Method Nasal Cannula 06/19/24 15:31 Oxygen Flow Rate 2 06/19/24 15:31 Pain Level 0 06/19/24 15:31 Allergies lorazepam (From Ativan) Allergy (Severe, Verified 06/19/24 07:37) Anaphylaxis diltiazem Allergy (Intermediate, Verified 06/19/24 07:37) LE and Facial Edema hydrochlorothiazide Allergy (Mild, Verified 06/19/24 07:37) rash Sulfa (Sulfonamide Antibiotics) Allergy (Unknown, Verified 06/19/24 07:37) Other (See Comment) metoprolol Adverse Reaction (Intermediate, Verified 06/19/24 07:37) Fluid Retention lisinopril Adverse Reaction (Mild, Verified 06/19/24 07:37) did not feel well Active Medications Generic Name Dose Route Start Last Admin Trade Name Freq PRN Reason Stop Dose Admin Albuterol/Ipratropium 1 puff 06/19/24 16:03 06/19/24 16:59 Ipratropium/Albuterol 4 Gm 120 Puff Inh IH 1 inh QID WALTER Administration Iohexol 100 ml 06/19/24 07:30 06/19/24 07:22 Omnipaque 350 Mg/Ml 100 Ml Btl IJ 07/19/24 23:59 70 ml DIRECTED WALTER Administration Sodium Chloride 50 ml 06/19/24 07:45 06/19/24 07:33 Normal Saline - Diluent 50 Ml Vial IJ 50 ml .FOR DI USE WALTER Administration IV IV Catheter Type [Left Saline Lock Antecubital] IV Catheter Gauge [Left 20 Antecubital] Diet Orders Category Date Time Status Heart Healthy Eating [DIET] Nutrition 06/19/24 Lunch Active Diagnostics 06/19/24 06/19/24 06/19/24 Range/Units 09:42 08:50 07:46 WBC (4.4-10.8) 10^3/uL RBC (3.93-5.22) 10^6/uL Hgb (11.2-15.7) g/dL Hct (36.0-46.0) % MCV (80-95) fL MCH (27.0-33.0) pg MCHC (32.0-36.0) % RDW (11.7-14.6) % Plt Count (130-400) 10^3/uL MPV (8.0-11.0) fL Immature Gran % % Neutrophils % % Lymphocytes % % Monocytes % % Eosinophils % % Basophils % % Nucleated RBC % (0.0-0.3) % Absolute Neutrophils (1.2-6.7) 10^3/uL Absolute Lymphocytes (1.2-3.4) 10^3/uL Absolute Monocytes (0.1-0.8) 10^3/uL Absolute Eosinophils (0.0-0.7) 10^3/uL Absolute Basophils (0.0-0.2) 10^3/uL PT (9.1-11.1) sec INR (0.9-1.1) APTT (23.6-32.8) sec VBG pH (7.31-7.41) VBG pCO2 (41-51) mmHg VBG pO2 mmHg VBG HCO3 (23-28) mmol/L VBG Total CO2 (24-29) mmol/L VBG O2 Saturation % VBG Base Excess (-2-3) mmol/L Sodium (136-145) mmol/L Potassium (3.5-5.1) mmol/L Chloride (98-107) mmol/L Carbon Dioxide (21.0-32.0) mmol/L Anion Gap (3-11) mmol/L BUN (7-18) mg/dL Creatinine (0.55-1.02) mg/dL Est GFR (CKD-EPI 2020) (mL/min/1.73m2) Glucose (74-106) mg/dL Calcium (8.5-10.1) mg/dL Total Bilirubin (0.2-1.0) mg/dL AST (15-37) U/L ALT (14-59) U/L Alkaline Phosphatase (46-116) U/L Troponin I 20 21 (<or=51) ng/L Total Protein (6.4-8.2) g/dL Albumin (3.4-5.0) g/dL Procalcitonin ng/mL Digoxin (0.90-2.00) ng/mL COVID-19 Source Nasopharynx SARS-CoV-2 (PCR) Negative (Negative) Influenza Type A (PCR) Negative (Negative) Influenza Type B (PCR) Negative (Negative) RSV (PCR) Negative (Negative) 06/19/24 Range/Units 06:23 WBC 8.34 (4.4-10.8) 10^3/uL RBC 4.31 (3.93-5.22) 10^6/uL Hgb 10.9 L (11.2-15.7) g/dL Hct 38.0 (36.0-46.0) % MCV 88 (80-95) fL MCH 25.3 L (27.0-33.0) pg MCHC 28.7 L (32.0-36.0) % RDW 17.6 H (11.7-14.6) % Plt Count 360 (130-400) 10^3/uL MPV 9.3 (8.0-11.0) fL Immature Gran % 0.4 % Neutrophils % 77.4 % Lymphocytes % 7.4 % Monocytes % 9.4 % Eosinophils % 4.7 % Basophils % 0.7 % Nucleated RBC % 0.0 (0.0-0.3) % Absolute Neutrophils 6.46 (1.2-6.7) 10^3/uL Absolute Lymphocytes 0.62 L (1.2-3.4) 10^3/uL Absolute Monocytes 0.78 (0.1-0.8) 10^3/uL Absolute Eosinophils 0.39 (0.0-0.7) 10^3/uL Absolute Basophils 0.06 (0.0-0.2) 10^3/uL PT 9.5 (9.1-11.1) sec INR 0.9 (0.9-1.1) APTT 28.3 (23.6-32.8) sec VBG pH 7.30 L (7.31-7.41) VBG pCO2 65 H* (41-51) mmHg VBG pO2 84 mmHg VBG HCO3 32 H (23-28) mmol/L VBG Total CO2 30 H (24-29) mmol/L VBG O2 Saturation 96 % VBG Base Excess 5 H (-2-3) mmol/L Sodium 137 (136-145) mmol/L Potassium 4.4 (3.5-5.1) mmol/L Chloride 99 (98-107) mmol/L Carbon Dioxide 31.6 (21.0-32.0) mmol/L Anion Gap 6.4 (3-11) mmol/L BUN 13 (7-18) mg/dL Creatinine 0.8 (0.55-1.02) mg/dL Est GFR (CKD-EPI 2020) 77.27 (mL/min/1.73m2) Glucose 118 H (74-106) mg/dL Calcium 9.7 (8.5-10.1) mg/dL Total Bilirubin 0.24 (0.2-1.0) mg/dL AST 15 (15-37) U/L ALT 25 (14-59) U/L Alkaline Phosphatase 115 (46-116) U/L Troponin I 21 (<or=51) ng/L Total Protein 7.8 (6.4-8.2) g/dL Albumin 3.4 (3.4-5.0) g/dL Procalcitonin < 0.1 ng/mL Digoxin 0.72 L (0.90-2.00) ng/mL COVID-19 Source SARS-CoV-2 (PCR) (Negative) Influenza Type A (PCR) (Negative) Influenza Type B (PCR) (Negative) RSV (PCR) (Negative) Intake and Output - 24 Hour Total 06/19/24 06:10 thru 06/19/24 16:57 Intake Total 100 Output Total 250 Balance -150 Weight 64.864 kg Intake: IV 100 Output: Urine 250 Other: Urine Color Pale Urine Appearance Clear Urine Odor None Voiding Methods Toilet Falls Risk Assessment History of Falls No History 06/19/24 15:31 Contributing Factors No Factors 06/19/24 15:31 Ambulatory Aids Independent 06/19/24 15:31 Tubes/Lines None 06/19/24 15:31 Gait Evaluation No gait disturbance 06/19/24 15:31 Cognition No cognitive impairment 06/19/24 06:20 Fall Total Score 0 06/19/24 15:31 Level of Risk Standard/Low Risk 06/19/24 15:31 v v v v v v v v v Sending and/or Receiving Nurses: Please use comment section below to note any information pertinent to the patient hand-off not included above. Information / Comments: S: 62 yo female brought to ED by family for chest pain and respiratory failure. B: Patient just discharged 06/03/24 post treatment for pneumonia.Patient was continuing to feel better until last night, when she developed chest pain and respiratory distress. 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 A: Vital signs stable. A&O x 3. Normal sinus rhythm. 20 g lft AC. On 2 L O2. SANCHEZ. Activity is wheel chair 1 assist. No pain. R: To med/surg for observation over night. Report received from: Wong, from ED @ 1925.
[2024-06-19] MEDS: Furosemide 20 MG TAB 40 MG PO (17:23)
[2024-06-19] MEDS: Normal Saline Flush 10 ML SYR IVP (18:47)
[2024-06-19] MEDS: Budesonide/Formoterol 160/4.5 6 GM 60 PUFF INH IH (19:49)
[2024-06-19] MEDS: guaiFENesin 600 MG TABCR PO (20:22)
[2024-06-19] MEDS: amLODIPine 10 MG TAB PO (20:22)
[2024-06-19] MEDS: Benzonatate 100 MG CAP PO (20:22)
[2024-06-19] MEDS: DOXYCYCLINE 100 MG in Normal Saline 100 ML IVPB (20:23)
[2024-06-19] MEDS: Acetaminophen 325 MG TAB PO (20:34)
[2024-06-20] VITALS (8 sets, daily range): BP systolic 118–142; BP diastolic 58–69; PULSE 80–95; RESP 14–18; TEMP 36.1–36.7; O2SAT 81–95
[2024-06-20] MEDS: AMPICILLIN/SULBACTAM 3 GM in Normal Saline 100 ML IVPB ×4 (00:58→21:57)
[2024-06-20] MEDS: Acetaminophen 325 MG TAB PO ×4 (02:26→16:53)
[2024-06-20] MEDS: Normal Saline Flush 10 ML SYR IVP ×5 (05:30→21:37)
[2024-06-20 07:16] LABS: HCT 38.7 % (36.0-46.0); HGB 11.3 g/dL (11.2-15.7); MCH 25.1 pg (27.0-33.0); MCHC 29.2 % (32.0-36.0); MCV 86 fL (80-95); MPV 9.5 fL (8.0-11.0); Platelet Count 360 10^3/uL (130-400); RBC 4.51 10^6/uL (3.93-5.22); RDW 17.5 % (11.7-14.6); RDW-SD 55.8 fL
[2024-06-20 07:26] LABS: Anion Gap 6.1 mmol/L (3-11); BUN 18 mg/dL (7-18); CO2 32.9 mmol/L (21.0-32.0); CREATININE 0.8 mg/dL (0.55-1.02); Calcium 9.5 mg/dL (8.5-10.1); Chloride 96 mmol/L (98-107); Estimated GFR 77.27 (mL/min/1.73m2); Glucose 100 mg/dL (74-106); Magnesium 1.6 mg/dL (1.8-2.4); Sodium 135 mmol/L (136-145)
[2024-06-20] MEDS: Polyethylene Glycol 3350 17 GM PACKET PO ×2 (07:49→16:52)
[2024-06-20] MEDS: Furosemide 20 MG TAB PO (07:50)
[2024-06-20] MEDS: Benzonatate 100 MG CAP PO ×3 (07:51→19:49)
[2024-06-20] MEDS: Docusate Sodium 100 MG CAP PO (07:51)
[2024-06-20] MEDS: guaiFENesin 600 MG TABCR PO ×2 (07:51→19:48)
[2024-06-20] MEDS: Esomeprazole 40 MG CAPCR PO (07:51)
[2024-06-20] MEDS: amLODIPine 10 MG TAB PO ×2 (07:52→19:49)
[2024-06-20] MEDS: Montelukast 10 MG TAB PO (07:52)
[2024-06-20] MEDS: Digoxin 0.125 MG TAB PO (07:52)
[2024-06-20] MEDS: DOXYCYCLINE 100 MG in Normal Saline 100 ML IVPB ×2 (08:16→19:48)
[2024-06-20] MEDS: Ipratropium/Albuterol 4 GM 120 PUFF INH IH ×4 (09:25→20:11)
[2024-06-20] MEDS: Budesonide/Formoterol 160/4.5 6 GM 60 PUFF INH IH ×2 (09:25→20:11)
--- NOTE | 2024-06-20 10:03 | PT.INIE ---
PT Notes Visit Reasons: Acute on chronic hypoxic respiratory failure, CAP Inpatient Physical Therapy Evaluation Date: [06/20/2024] Referring Doctor: []Marley Kolb PT Orders: PT CONSULT: safty consult for D/C Precautions: [] Standard, PNA, fall risk Patient Profile/Admitting Diagnosis: []Jackie is a 73-year-old female patient with PMH of CVA, COPD with recent home oxygen requirement for 2 L of O2, hx of smoking, recent acquired pneumonia discharged 06/03/24. Presented to ED at [facility] 06/19/24 for evaluation of chest pain. The patient stated waking up at 2 AM feeling that her heart was racing with significant chest pain described as heavy and sev a couple of minutes and subsiding on its own. PMHX: All Active Problems Hypoxia (Acute) Acute on chronic respiratory failure with hypoxia and hypercapnia (Acute) Acute and chronic respiratory failure ([id number]) (Acute) CAP (community acquired pneumonia) (Acute) COPD exacerbation (Acute) Cervical arthritis with myelopathy (Acute) Arthritis (Acute 02/10/13) Osteoporosis (Acute 01/14/08) Tachycardia (Chronic) GERD (gastroesophageal reflux disease) (Chronic) Medical History Bilateral lower extremity edema Acute respiratory failure with hypoxia HTN (hypertension) COVID-[address] Tobacco dependence due to cigarettes Quit smoking when she was 59 years oldCOVID-19 -associated with COPD exacerbationParotid mass Resolved after 3 months without interventionAcute on chronic respiratory failure with hypoxia and hypercapnia Acute on chronic diastolic CHF (congestive heart failure) Chronic obstructive lung disease h/o tobacco use, quit 2008 CAP (community acquired pneumonia) GERD (gastroesophageal reflux disease) HTN (hypertension) Surgical History Endoscopic Carpal Tunnel release (03/31/13) Left 7.2.13 Social History/Home Situation: []Social History/Home Situation: Jackie lives in a private home. Normally independent, although admits to frequent shortness of breath. She has a 4WW, but uses infrequently. States that she mows her own lawn, does her own grocery shopping, etc. Has been on supplemental O2 since discharge in early May for COPD. Equipment Owned/DME: 4WW Subjective: Jackie states that she has been using 2 L n/c at home and monitors her 02 sat. Objective: General Observation: Resting in chair, with supplemental O2 via nasal cannula. Mental Status: A&Ox3. Pleasant and cooperative throughout. Pain: denies Vital Signs: SaO2 drops as low as 80% during ambulation. ROM: Right Upper Extremity: WFL Left Upper Extremity: WFL, with the exception of shoulder flexion, limited to 160*. 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 Right Lower Extremity: WFL Left Lower Extremity: WFL Strength: Right Upper Extremity: Shoulder flexion 4/5. Biceps 4/5. Triceps 4-/5. Left Upper Extremity: Shoulder flexion 3-/5. Biceps 4/5. Triceps 4-/5. Right Lower Extremity: Hip flexion 4/5. Quads 4/5. Ankle DF 4+/5. Left Lower Extremity: Hip flexion 4/5. Quads 4/5. Ankle DF 4+/5. Bed Mobility/Transfers: sit-stand: independent stand-sit: independent Gait: Ambulates 130' with UE support to vitals cart with 2 L n/c. Cues for pacing and breathing throughout. She states she uses walker at home to lean on for her Low back but smaller area so doesn't need for walking. Balance: Static Sitting: normal Dynamic Sitting: normal Static Standing: normal Dynamic Standing: normal Special Tests: Mobility Limitations Standardized Measure [facility] AM-PAC 6 clicks Basic Mobility Inpatient Short Form: Raw Score: 23 CMS Score:11% impairment Informed Consent/Education: Patient instructed in purpose of PT consult and plan of care. Treatment: Initial Evaluation ([id number]) Therapeutic Exercises Reviewed but no time spent: Instruction in the following: At least 3x/day Diaphragmatic breathing in sitting position, 5 breaths seated alternating arm and leg march, cues for upright positioning, pacing and breathing, 10x seated LAQ 10x seated ankle pumps 10x standing hip abduction x5 standing calf raises x5 Assessment: Patient is a 73 year old female referred to physical therapy services with the diagnosis of acute on chronic respiratory failure, hypoxia , with PT consult request for safety consult for d/c recommendations. Jackie demonstrates good safety and independence, but with significant limitations in strength and activity tolerance, consistent with her acute medical issues. She requires skilled PT intervention to allow for further instruction in breathing and pacing techniques. She is appropriate for d/c home once medically stable. Recommend consideration of Pulmonary Rehab for continued gains. She currently demonstrates the following impairment level findings: 1. Decreased activity tolerance 2. oxygen desaturation with activity 3. decreased LE strength 4. shortness of breath Impairments are contributing to the following functional limitations: 1. unable to tolerate community distance ambulation without oxygen supplementation 2. requiring education on pacing and breathing techniques Patient is assessed as a Low 55398 complexity based on the following: History: as above Examination: functional limitations as above Presentation: evolving due to acute medical issues Decision Making: low Goals: Goals X1 week 1. demonstrate effective diaphragmatic breathing techniques 2. Able to tolerate 150' of ambulation with supplemental O2 and SaO2 > 85% Plan of Care/Treatment Plan: 1-2x/day, 7 days/week x 1 week. Plan of care has been reviewed with the ATTIC BLOWER providing the service under Physical Therapy direction. Initiate Physical Therapy intervention for strengthening, bed mobility, transfers, gait, stairs, balance training, use of assistive device. DISCHARGE RECOMMENDATIONS: Home with services vs Out Pt pulmonary rehab. No equipment needs outside of O2 supplementation . Consider Pulmonary Rehab. TREATMENT CODE/TIME: 60086 10:30-10:50 Jacqueline Middleton PT Please sign an return this page within 30 days if you agree with the above POC. Thank you! Physician Signature Date [facility]
--- NOTE | 2024-06-20 12:04 | W.PM.PROGNOT ---
Date of Service Date of service: 06/20/24 Time of Service: 12:04 Assessment and Plan Assessment and plan (1) CAP (community acquired pneumonia): Status: Acute Assessment and plan: continue doxycycline and Unasyn day 2/5 Mucinex Tessalon perle Albuterol/ ipratropium nebs PRN Home Albuterol INH IS Acapella O2 home requirement and as needed to maintain sat 88-92% (2) Acute and chronic respiratory failure ([id number]): Status: Acute Assessment and plan: As above (3) Chronic obstructive lung disease: Status: Chronic Assessment and plan: Home CPAP PH 7.43 with PCO2 65 around baseline no steroid need Discussed with Dr. Regan Qualifiers: COPD type: emphysema Emphysema type: unspecified Qualified Code(s): J43.9 - Emphysema, unspecified (4) Hypomagnesemia: Status: Acute Assessment and plan: replete and follow (5) Heart failure with preserved ejection fraction (HFpEF, >= 50%): Status: Acute Assessment and plan: continue home lasix Echo Conclusion Normal left ventricular wall thickness and chamber size. Ejection fraction is 65%. Wall motion is normal Right ventricle is mildly enlarged and hypocontractile Both atria are normal in size There are no structural valvular abnormalities Estimated right ventricular systolic pressure is 52 mmHg , (was 40-50 mmHg in 2019) (6) DVT prophylaxis: Status: Acute Assessment and plan: continue enoxaparin daily (7) Discharge planning issues: Status: Acute Assessment and plan: home with no services when medically stable discussed with DR Regan. Subjective Subjective Patient reports: no new complaints, feels better, tolerating liquids well, tolerating a regular diet, shortness of breath (with activity and improving) and afebrile Interval history since last seen: on home oxygen flow. reambulated safely with PT Exam Const General: cooperative, comfortable and no acute distress Nutritional Appearance: average body habitus Orientation: alert, awake and oriented x3 HENMT Head: normal to inspection Ears: external ears normal General nose exam: external nose normal Mouth: moist mucous membranes Eyes General: appearance normal, both eyes and all related structures Neck Neck: normal visual inspection Resp Effort & Inspection: normal respiratory effort Auscultation: diminished lung sounds Cardio Jugular venous pressure: no JVD Rate: regular rate Skin General skin exam: no rashes or lesions noted Neuro General: patient alert and patient oriented x3 Extrem General: normal to inspection Psych Mental Status: mental status grossly normal Objective Last Vital Signs Temp 36.4 C L 06/20/24 11:40 Pulse 88 06/20/24 11:40 Resp 17 06/20/24 11:40 BP 118/61 06/20/24 11:40 Pulse Ox 95 06/20/24 11:40 Laboratory Results - last 24 hr 06/20/24 06:47 WBC 8.90 RBC 4.51 Hgb 11.3 Hct 38.7 MCV 86 MCH 25.1 L MCHC 29.2 L RDW 17.5 H Plt Count 360 MPV 9.5 Sodium 135 L Potassium 4.0 Chloride 96 L Carbon Dioxide 32.9 H Anion Gap 6.1 BUN 18 Creatinine 0.8 Est GFR (CKD-EPI 2020) 77.27 Glucose 100 Calcium 9.5 Magnesium 1.6 L Time Spent with Patient Time Spent with Patient: 35-49 minutes Time was spent: preparing to see the patient(eg.review tests), obtaining and/or reviewing separately otained hiistory, ordering medications,tests, procedures, indepentently interpreting results and counseling the patient
[2024-06-20] MEDS: Enoxaparin 40 MG/0.4 ML SYR SC (12:17)
[2024-06-20] MEDS: MAGNESIUM SULFATE 2 GM/50 ML BAG IVINF (14:10)
--- NOTE | 2024-06-20 17:49 | NUR.NOTE ---
Trust Vault Clerk reviewed and is in agreement with Fahad Olmos LPN's charting.
--- NOTE | 2024-06-20 18:09 | PDOC.CMIN ---
Date of service: 06/20/24 Time of Service: 18:11 Care Management Initial Assmt Initial Assessment Reason for Hospitalization: acute on chronic hypoxic respiratory failure Functional Status/Living Situation Patient Presentation: Jackie was sitting up in her chair when CM met with her. She was pleasant and engaged well in conversation. She stated that she is feeling better today. She discussed how she had just met with and was signed off from nursing services, and then started to feel worse, and presented to [facility] for evaluation. She stated that she felt ready for discharge when she left a couple weeks ago, but that she got sick again. She stated that she was hoping to return home today, but the provider wanted to monitor her overnight again, so she agreed to stay. She is being treated with IV antibiotics, and is on O2 at baseline. She discussed how she has connected with [facility] since discharge, and is getting set up with [facility], and plans to receive help from them when it is time for her to change her insurance during open enrollment. CM will continue to follow. Town of Residence: [facility] Resides with: Child (Son, Vinh) Significant Other/Family: Local Natural Supports: son and grandson are supportive Employment Status: Retired ([employer]) Instrumental Activities of Daily Living (ADLs): Independent Medications Medication Management: No Issues/Barriers identified Physical Functioning/Mobility Assistive Device: home O2, bipap FWW and cane Advance Directives Advance Directives: Do you have an Advance Directive: Y 02/10/13 10:22 AD On File at [facility]: Y 02/10/13 11:03 Date Asked 02/02/19 05/29/24 10:37 AD Date Reviewed 06/19/24 06/20/24 14:08 COLST On File at [facility] Yes 05/29/24 10:37 COLST Date Scanned 02/05/19 05/29/24 10:37 Code Status Resuscitation Status DNR/DNI Insurance Coverage/Financial Issues Insurance: [facility] Care Team Visit Care Team Role Provider Type Deven Roberto NP Primary Care Provider NURSE PRACTITIONER InPatient Stanley Rangel Other Providers OTHER Otilio Romo MD Emergency Provider [facility] STAFF PHYSICIAN Feng Regan MD Admit Provider [facility] STAFF PHYSICIAN Attending Provider Discharge Potential Discharge Needs: PCP F/U Appt (She has one scheduled on 06/26/24) Anticipated Barriers to Discharge: None Identified Patient/Family Education Needs: Review discharge instructions, discuss Ask Me Three Transportation: Private vehicle Plan: Anticipate Jackie will return home once medically cleared. She will have a resumption of HH, with the addition of HH RN, as this was recently discontinued. Her son will drive her home via private vehicle. She will follow up with her PCP and discharge plan of care. CM will continue to follow. PFSH All Active Problems (Updated 06/20/24 @ 12:15 by Maria Eugenia Gonzalez NP) Hypomagnesemia (Acute) Chronic obstructive lung disease (Chronic) h/o tobacco use, quit 2008 Discharge planning issues (Acute) DVT prophylaxis (Acute) Heart failure with preserved ejection fraction (HFpEF, >= 50%) (Acute) Hypoxia (Acute) Acute on chronic respiratory failure with hypoxia and hypercapnia (Acute) Acute and chronic respiratory failure ([id number]) (Acute) CAP (community acquired pneumonia) (Acute) COPD exacerbation (Acute) Cervical arthritis with myelopathy (Acute) Arthritis (Acute 02/10/13) Osteoporosis (Acute 01/14/08) Tachycardia (Chronic) GERD (gastroesophageal reflux disease) (Chronic) Medical History (Updated 06/20/24 @ 12:15 by Maria Eugenia Gonzalez NP) Bilateral lower extremity edema Acute respiratory failure with hypoxia HTN (hypertension) COVID-[address] Tobacco dependence due to cigarettes Quit smoking when she was 59 years old COVID-19 -associated with COPD exacerbation Parotid mass Resolved after 3 months without intervention Acute on chronic respiratory failure with hypoxia and hypercapnia Acute on chronic diastolic CHF (congestive heart failure) CAP (community acquired pneumonia) GERD (gastroesophageal reflux disease) HTN (hypertension) Surgical History Endoscopic Carpal Tunnel release (03/31/13) Left 7.2.13 Family History Mother Essential hypertension Hyperlipidemia Adopted Dementia Father Heart disease Neoplasm LUNG Lung cancer Sister No problems noted. Sister No problems noted. Brother No problems noted. Brother No problems noted. Maternal Grandfather Stroke Paternal Grandfather Heart disease Maternal Grandmother Heart disease Paternal Grandmother Stroke Son Diabetes Essential hypertension Daughter No problems noted. Social History (Reviewed 06/19/24 @ 18:45 by MARTINA Quevedo Smoking/Tobacco Use Status: Former Tobacco Use tobacco type: cigarettes Quit Date: 09/30/13 Tobacco: How many years used: 50 Second Hand Exposure: Yes Smoking risk assessment performed?: Yes Alcohol Intake: never Drug use: Never Substance use type: does not use Counseling given: No Counseling provided: none Caregiver/Support person: No Household members: family Housing: house Communication Needs: None Do you need help understanding health information?: Never Pets and animals: Yes Pets and animals: dog(s) Sexually active: No Do you think of yourself as: straight/heterosexual Current gender identity: female What is your relationship status?: How often do you talk on the phone with friends or family?: three or more times per week How often do you get together with friends or relatives?: three or more times per week Do you belong to any clubs or organized social groups?: no Panel score (0-1 are the most socially isolated patients): 1 What type of physical activity do you participate in: none Special juan needs: No Seatbelt use: sometimes Helmet use: No Drive intox 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 Interview patient and/or Family Difficulty reaching your doctor or getting an office appt?: No Have you had trouble purchasing/ or taking medication?: No How do you take your medications and set up your pills?: independently Have you had trouble with getting meals at home?: Yes Describe your typical meals since you have been home: [facility] ordered on previous discharge Did you feel ready for discharge when you left the last time: Yes Were services received that you thought were set up on disch: Yes What services were received?: AUDREY RN, PT, INSIGHT DIRECTOR, as well as [facility] referral Did you call your physician beore you came to the ED?: No How do you think you became sick enough to come back?: Jackie stated that she thinks she either got sick again, or was not quite back to normal, although she is unsure. She stated that she felt ready to discharge home then, and is anticipating her discharge home on this admission soon, as well. ED visits How many ED visits in the past 12 months: 1 Assessment for Readmission Summary of readmission circumstances, based upon interviews: Jackie stated that she felt ready for discharge when she left on her previous admission, and was happy to receive all of the services that were discussed, including HH RN, PT, and INSIGHT DIRECTOR, as well as the referral for [facility]. She was pleased with the response she had after leaving the hospital. She stated that HH was just in her home prior to her coming in, and they signed off on her case, as she was doing so well. She stated that she went to her hospital follow up appointment, and has another scheduled (her annual well visit) on 06/26/24. She received supplemental O2 on her last admission, and she reported that it went smoothly, and she is happy that she has it. She stated that her son is her main support, and he will drive her home once discharged. Overall she is happy with the care she receives at [facility]. Once she is medically ready for discharge, HH services will be resumed, with the addition of HH RN, as this was recently discontinued. CM will continue to follow. SDOH(Care Management) Screening Will the Patient Participate in the Screening?: Declined to provide Anticipated HH Services Anticipated HH Services at Discharge [facility] Resumption, INSIGHT DIRECTOR, PT and RN Anticipated Date of Discharge: 06/21/24. Following Provider: Deven Roberto.
[2024-06-20 21:25] LABS: HCT 33.1 % (36.0-46.0); HGB 9.5 g/dL (11.2-15.7); MCH 25.5 pg (27.0-33.0); MCHC 28.7 % (32.0-36.0); MCV 89 fL (80-95); MPV 9.5 fL (8.0-11.0); Platelet Count 290 10^3/uL (130-400); RBC 3.73 10^6/uL (3.93-5.22); RDW 17.6 % (11.7-14.6); RDW-SD 57.5 fL
[2024-06-21] VITALS (9 sets, daily range): BP systolic 117–132; BP diastolic 53–60; PULSE 79–87; RESP 15–20; TEMP 36.5–36.7; O2SAT 91–96
[2024-06-21 01:21] LABS: HCT 28.4 % (36.0-46.0); HGB 8.2 g/dL (11.2-15.7); MCH 25.5 pg (27.0-33.0); MCHC 28.9 % (32.0-36.0); MCV 88 fL (80-95); MPV 9.2 fL (8.0-11.0); Platelet Count 280 10^3/uL (130-400); RBC 3.22 10^6/uL (3.93-5.22); RDW 17.6 % (11.7-14.6); WBC 6.63 10^3/uL (4.4-10.8)
--- NOTE | 2024-06-21 02:15 | DI.RAD_ITS ---
Exam(s) XR ABDOMEN FLAT UPRIGHT EXAM: XR ABDOMEN FLAT UPRIGHT CLINICAL HISTORY: Drop in H H, new blood in stool. TECHNIQUE: 2D digital imaging was performed. COMPARISON: No exams were available for comparison FINDINGS: Two views-supine and upright. There is an I ileus pattern evident. Air seen throughout the nondilated colon. Few air-fluid levels are noted in nondilated small bowel loops in the abdomen. No abnormal calcifications. Scoliosis in the lumbar spine convex left noted. Advanced degenerative changes in the right hip noted. Left hip relatively unremarkable. IMPRESSION: I ileus pattern. No obvious obstruction. No free air. DATA REPOSITORY: RADIATION DOSE DELIVERED:
--- NOTE | 2024-06-21 03:38 | W.EVENT ---
Date of service: 06/21/24 Time of Service: 03:39 Event Note: This is a 73-year-old lady admitted for community-acquired pneumonia on Zosyn with doxycycline who was just given her first dose of Lovenox on 06/20/2024 for DVT prophylaxis. She began to have gross large volume bloody stools with scant liquid brown stool that evening and persisted with stooling blood to a volume of 100 cc with the last stool less volume compared to previous. She has no abdominal discomfort though she does have some increased bowel sounds and slight cramping. She has no nausea vomiting. Stool did test positive for blood. Her lab was evaluated with type and screen and CBC's were done serially with H&H dropping from 11 g/dL to 8 g/dL and remained hemodynamically stable without tachycardia and no hypotension. She was not septic. Physical exam was significant for decreased aeration and coarse crackles lower lung das but vesicular breath sounds but no expiratory wheeze, heart with regular rate. No murmurs gallops appreciated and abdomen obese contour with soft palpation without guarding or rebound and no focal tenderness. Hepatosplenomegaly. Extremities had no edema or cyanosis. Skin with normal color with good cap refill over the extremities. Skin was warm and dry. Patient had a C. difficile antigen which was negative. Surgery was consulted animal laboratory helper because of her continued bloody stools though decreasing volume and or drop in hemoglobin. She may be a candidate for colonoscopy. She will need to be prepped. Different diagnosis is possible diverticular bleed versus unknown colon pathology with bleed the patient not had a colonoscopy in the recent past. This is less likely an upper GI bleed. She is on PPI. She is a DNR/DNI. Time Spent with Patient Time spent in critical care(minutes): 40 Time Spent Included: Coordination of care, Chart review, Documenting critically ill care, Time at immediate bedside and Discussing critically ill care with other medical staff
[2024-06-21 04:04] LABS: C Diff PCR Negative (Negative)
[2024-06-21] MEDS: AMPICILLIN/SULBACTAM 3 GM in Normal Saline 100 ML IVPB ×4 (04:06→23:16)
--- NOTE | 2024-06-21 04:59 | DI.VRAD_ITS ---
PROCEDURE INFORMATION: Exam: XR Abdomen Exam date and time: 06/21/2024 2:42 AM Age: 73 years old Clinical indication: Other: Drop in h\T\h, new blood in stool TECHNIQUE: Imaging protocol: Radiologic exam of the abdomen. Views: 2 Views. Upright and supine views. COMPARISON: CT ABDOMEN PELVIS WO 12/31/2018 3:59 PM FINDINGS: Gastrointestinal tract: Normal. No bowel dilation. Intraperitoneal space: Normal. No free air. Bones/joints: Unremarkable for age. IMPRESSION: No acute findings. Dictated and Authenticated by: Jc Marks MD. Ordering:MAEGAN Lemus MD
[2024-06-21 06:23] LABS: Abs Immature Grans 0.02 10^3/uL (0.0-0.06); Absolute Basophil Count 0.05 10^3/uL (0.0-0.2); Absolute Eosinophil Count 0.35 10^3/uL (0.0-0.7); Absolute Lymphocyte Count 0.51 10^3/uL (1.2-3.4); Absolute Monocyte Count 0.81 10^3/uL (0.1-0.8); Absolute Neutrophil Count 6.44 10^3/uL (1.2-6.7); Basophils % 0.6 %; Eosinophils % 4.3 %; HCT 27.3 % (36.0-46.0); HGB 8.1 g/dL (11.2-15.7); Immature Grans % 0.2 %; Lymphocytes % 6.2 %; MCH 25.5 pg (27.0-33.0); MCHC 29.7 % (32.0-36.0); MCV 86 fL (80-95); MPV 9.9 fL (8.0-11.0); Monocytes % 9.9 %; Neutrophils % 78.8 %; Platelet Count 297 10^3/uL (130-400); RBC 3.18 10^6/uL (3.93-5.22); RDW 17.7 % (11.7-14.6); RDW-SD 56.2 fL; WBC 8.18 10^3/uL (4.4-10.8)
[2024-06-21 06:46] LABS: Anion Gap 6.9 mmol/L (3-11); BUN 24 mg/dL (7-18); CO2 28.1 mmol/L (21.0-32.0); CREATININE 0.8 mg/dL (0.55-1.02); Calcium 8.5 mg/dL (8.5-10.1); Chloride 102 mmol/L (98-107); Estimated GFR 77.27 (mL/min/1.73m2); Glucose 104 mg/dL (74-106); Magnesium 1.9 mg/dL (1.8-2.4); Sodium 137 mmol/L (136-145)
[2024-06-21] MEDS: Normal Saline Flush 10 ML SYR IVP ×3 (07:38→21:43)
[2024-06-21] MEDS: DOXYCYCLINE 100 MG in Normal Saline 100 ML IVPB ×2 (07:38→21:42)
[2024-06-21] MEDS: Digoxin 0.125 MG TAB PO (07:39)
[2024-06-21] MEDS: Esomeprazole 40 MG CAPCR PO (07:40)
[2024-06-21] MEDS: guaiFENesin 600 MG TABCR PO ×2 (07:40→21:43)
[2024-06-21] MEDS: Montelukast 10 MG TAB PO (07:40)
[2024-06-21] MEDS: Benzonatate 100 MG CAP PO ×3 (07:40→21:43)
[2024-06-21] MEDS: Furosemide 20 MG TAB 40 MG PO (07:41)
[2024-06-21] MEDS: amLODIPine 10 MG TAB PO ×2 (07:41→21:43)
[2024-06-21] MEDS: Acetaminophen 325 MG TAB PO ×2 (07:59→13:38)
[2024-06-21] MEDS: Budesonide/Formoterol 160/4.5 6 GM 60 PUFF INH IH ×2 (08:27→21:14)
[2024-06-21] MEDS: Ipratropium/Albuterol 4 GM 120 PUFF INH IH ×4 (08:27→21:15)
[2024-06-21 09:19] LABS: HCT 29.9 % (36.0-46.0); HGB 8.5 g/dL (11.2-15.7); MCH 25.4 pg (27.0-33.0); MCHC 28.4 % (32.0-36.0); MCV 89 fL (80-95); Platelet Count 314 10^3/uL (130-400); RBC 3.35 10^6/uL (3.93-5.22); RDW 17.6 % (11.7-14.6); RDW-SD 57.7 fL; WBC 7.47 10^3/uL (4.4-10.8)
--- NOTE | 2024-06-21 09:30 | PT.INNT ---
PT Notes Visit Reasons: Acute on Chronic Hypoxic Respiratory Failure, CAP Pt reports that with everything going on she does not want to participate in PT this am. Nursing reports that she is losing blood and her hemoglobin is low.
--- NOTE | 2024-06-21 10:10 | NUR.NOTE ---
Patient maintaining 02 sats mid-high 90's on 2L 02 via NC and is asymptomatic. Home Builder educated patient on weaning 02 to maintain 02 sats 88-90% because of patient's COPD and concern of C02 retention. Patient appeared to become anxious and stated, I've always been on 2L of oxygen. When I get up and move around, I need my oxygen. Home Builder suggested oxygen be weaned and removed at rest (as long as 02 sats maintain 88-90%) and apply 02 NC prior to ambulating, patient not receptive. Will continue to reinforce education as necessary and as patient is more receptive.
--- NOTE | 2024-06-21 10:34 | W.SURGCON ---
Date of service: 06/21/24 Time of Service: 10:34 Assessment and Plan Assessment and plan (1) GI bleed: Status: Acute Assessment and plan: 73-year-old woman who had painless bright red bleeding per rectum. She is hemodynamically stable and was never unstable. The bleeding seems to have stopped clinically. Her hemoglobin did drop a little bit but she is chronically anemic in the 9?11 range for years. Differential diagnosis is quite broad but foregut etiology would be the most likely statistically. Peptic ulcer disease, stress gastritis, diverticular bleeding, hemorrhoidal bleeding and colon malignancy are all within the differential diagnosis. An upper endoscopy can be performed tomorrow to assess her foregut from a diagnostic standpoint. Colonoscopy can be considered afterwards if there are no findings on forgot but statistically carries only about a 5% chance of finding anything of significance. Overall plan: If she is staying in the hospital today, we can do an EGD tomorrow before she is discharged home as long as the bleeding stays resolved like it appears to have done. History of Present Illness Narrative: 73-year-old woman started having some blood per rectum last night. This is never happened before. She is here in the hospital because of chronic pneumonia. She is many multiple medical comorbid conditions. Examples: She has oxygen-dependent COPD and has digoxin for heart failure. She has never had a colonoscopy or an upper endoscopy. She does not have a family history of colon cancer. She is not on blood thinners or antiplatelet medications. She is DNR/DNI. The bleeding she saw was reportedly pretty bright red blood. There was a significant volume of it for a couple of hours that was witnessed by nursing staff in the commode. Her hemoglobin did drop a couple of grams. She denies any abdominal pain. No vomiting blood. [facility] All Active Problems (Updated 06/21/24 @ 11:59 by Shon Hendrickson MD) GI bleed (Acute) Hypomagnesemia (Acute) Chronic obstructive lung disease (Chronic) h/o tobacco use, quit 2008 Discharge planning issues (Acute) DVT prophylaxis (Acute) Heart failure with preserved ejection fraction (HFpEF, >= 50%) (Acute) Hypoxia (Acute) Acute on chronic respiratory failure with hypoxia and hypercapnia (Acute) Acute and chronic respiratory failure ([id number]) (Acute) CAP (community acquired pneumonia) (Acute) COPD exacerbation (Acute) Cervical arthritis with myelopathy (Acute) Arthritis (Acute 02/10/13) Osteoporosis (Acute 01/14/08) Tachycardia (Chronic) GERD (gastroesophageal reflux disease) (Chronic) Medical History (Updated 06/21/24 @ 11:59 by Shon Hendrickson MD) Bilateral lower extremity edema Acute respiratory failure with hypoxia HTN (hypertension) COVID-[address] Tobacco dependence due to cigarettes Quit smoking when she was 59 years old COVID-19 -associated with COPD exacerbation Parotid mass Resolved after 3 months without intervention Acute on chronic respiratory failure with hypoxia and hypercapnia Acute on chronic diastolic CHF (congestive heart failure) CAP (community acquired pneumonia) GERD (gastroesophageal reflux disease) HTN (hypertension) Surgical History Endoscopic Carpal Tunnel release (03/31/13) Left 7.2.13 Family History Mother Essential hypertension Hyperlipidemia Adopted Dementia Father Heart disease Neoplasm LUNG Lung cancer Sister No problems noted. Sister No problems noted. Brother No problems noted. Brother No problems noted. Maternal Grandfather Stroke Paternal Grandfather Heart disease Maternal Grandmother Heart disease Paternal Grandmother Stroke Son Diabetes Essential hypertension Daughter No problems noted. Social History Smoking/Tobacco Use Status: Former Tobacco Use tobacco type: cigarettes Quit Date: 09/30/13 Tobacco: How many years used: 50 Second Hand Exposure: Yes Smoking risk assessment performed?: Yes Alcohol Intake: never Drug use: Never Substance use type: does not use Counseling given: No Counseling provided: none Caregiver/Support person: No Household members: family Housing: house Communication Needs: None Do you need help understanding health information?: Never Pets and animals: Yes Pets and animals: dog(s) Sexually active: No Do you think of yourself as: straight/heterosexual Current gender identity: female What is your relationship status?: How often do you talk on the phone with friends or family?: three or more times per week How often do you get together with friends or relatives?: three or more times per week Do you belong to any clubs or organized social groups?: no Panel score (0-1 are the most socially isolated patients): 1 What type of physical activity do you participate in: none Special juan needs: No Seatbelt use: sometimes Helmet use: No Drive intox or ride w/intox wrecker driver: No Do you feel safe at home: Yes Do you feel safe in your relationship?: Yes Exam Narrative Exam Narrative: Gen: Non-toxic, comfortable and interactive. Normal weight but appears chronically unhealthy. Has nasal cannula oxygen in her nares. Neuro: Alert and oriented x3 Psych: Good mood and affect. Good insight and understanding into condition. Chest: Non-labored breathing, no wheezing, no visible shortness of breath. She is using oxygen. Heart: Regular Abdomen: Soft, nondistended and nontender. Results Last Vital Signs Temp 98.1 F 06/21/24 02:01 Pulse 85 06/21/24 07:39 Resp 20 06/21/24 02:01 BP 118/56 L 06/21/24 02:01 Pulse Ox 92 06/21/24 08:31 Labs 06/21/24 09:13 06/21/24 05:40 Labs: Laboratory Results - last 24 hr 06/20/24 06/21/24 06/21/24 21:15 01:13 03:09 WBC 6.50 6.63 RBC 3.73 L 3.22 L Hgb 9.5 L 8.2 L Hct 33.1 L 28.4 L MCV 89 88 MCH 25.5 L 25.5 L MCHC 28.7 L 28.9 L RDW 17.6 H 17.6 H Plt Count 290 280 MPV 9.5 9.2 Immature Gran % Neutrophils % Lymphocytes % Monocytes % Eosinophils % Basophils % Nucleated RBC % Absolute Neutrophils Absolute Lymphocytes Absolute Monocytes Absolute Eosinophils Absolute Basophils Sodium Potassium Chloride Carbon Dioxide Anion Gap BUN Creatinine Est GFR (CKD-EPI 2020) Glucose Calcium Magnesium Stl C.difficile Tox PCR Negative ABO/Rh A Positive Antibody Screen NEGATIVE 06/21/24 06/21/24 06/21/24 05:15 05:40 09:13 WBC Cancelled 8.18 7.47 RBC Cancelled 3.18 L 3.35 L Hgb Cancelled 8.1 L 8.5 L Hct Cancelled 27.3 L 29.9 L MCV Cancelled 86 89 MCH Cancelled 25.5 L 25.4 L MCHC Cancelled 29.7 L 28.4 L RDW Cancelled 17.7 H 17.6 H Plt Count Cancelled 297 314 MPV Cancelled 9.9 9.0 Immature Gran % 0.2 Neutrophils % 78.8 Lymphocytes % 6.2 Monocytes % 9.9 Eosinophils % 4.3 Basophils % 0.6 Nucleated RBC % 0.0 Absolute Neutrophils 6.44 Absolute Lymphocytes 0.51 L Absolute Monocytes 0.81 H Absolute Eosinophils 0.35 Absolute Basophils 0.05 Sodium 137 Potassium 5.0 D Chloride 102 Carbon Dioxide 28.1 Anion Gap 6.9 BUN 24 H Creatinine 0.8 Est GFR (CKD-EPI 2020) 77.27 Glucose 104 Calcium 8.5 Magnesium 1.9 Stl C.difficile Tox PCR ABO/Rh Antibody Screen
--- NOTE | 2024-06-21 10:43 | PT.INTREAT ---
PT Notes Visit Reasons: Acute on Chronic Hypoxic Respiratory Failure, CAP Inpatient Physical Therapy Treatment Note [facility] Date: 06/21/24 PRECAUTIONS:Standard SUBJECTIVE: Pt reports that she is doing better and will participate in PT now. She states that she is weaker today. OBJECTIVE: ? VITALS: ? Pre-Treatment: Oxygen 91% and dropped to 81% with walking. Nursing did mention with walking we could go t 3L. Therapeutic Activities ([id number][]): Direct one-on-one instruction in dynamic activities to improve functional performance. ? BED MOBILITY/TRANSFERS? Sit-stand: SBA? Stand-sit: SBA ? GAIT? Assistive Device: FWW? Weight bearing: Full Assist: SBA? Distance:? Small loop? ASSESSMENT:? Pt did require a seated rest after just approx 15 ft only due to her oxgen dropping to 81%. After a short rest her oxygen improved into low 90's and was able to tolerate the small loop slowly. We did at the end of the walk have to bump it back up to 3 L. PLAN: Cont as per PT POC. TREATMENT CODE/TIME: 10:30-10:42 (12) TA DISCHARGE RECOMMENDATION: []
--- NOTE | 2024-06-21 11:22 | W.PM.PROGNOT ---
Date of Service Date of service: 06/21/24 Time of Service: 11:23 Assessment and Plan Assessment and plan (1) GI bleed: Status: Acute Assessment and plan: enoxaparin placed on hold surgical consult pending change nexium to protonix IVP BID trend H&H (2) CAP (community acquired pneumonia): Status: Acute Assessment and plan: continue doxycycline and Unasyn day 3/5 Mucinex Tessalon perle Albuterol/ ipratropium nebs PRN Home Albuterol INH IS Acapella O2 home requirement and as needed to maintain sat 88-92% (3) Acute and chronic respiratory failure ([id number]): Status: Acute Assessment and plan: As above (4) Chronic obstructive lung disease: Status: Chronic Assessment and plan: Home CPAP and oxygen PH 7.43 with PCO2 65 around baseline no steroid need Qualifiers: COPD type: emphysema Emphysema type: unspecified Qualified Code(s): J43.9 - Emphysema, unspecified (5) Hypomagnesemia: Status: Acute Assessment and plan: replete and follow (6) Heart failure with preserved ejection fraction (HFpEF, >= 50%): Status: Acute Assessment and plan: continue home lasix Echo Conclusion Normal left ventricular wall thickness and chamber size. Ejection fraction is 65%. Wall motion is normal Right ventricle is mildly enlarged and hypocontractile Both atria are normal in size There are no structural valvular abnormalities Estimated right ventricular systolic pressure is 52 mmHg , (was 40-50 mmHg in 2019) (7) DVT prophylaxis: Status: Acute Assessment and plan: enoxaparin discontinued in setting of gi bleeding continue home compression stockings. patient has not been on bedrest. (8) Discharge planning issues: Status: Acute Assessment and plan: home with no services when medically stable discussed with DR Regan. Subjective Subjective Patient reports: diarrhea (bloody), blood in stool, shortness of breath (with activity) and afebrile; denies nausea or vomiting Exam Const General: cooperative, comfortable and no acute distress Nutritional Appearance: average body habitus Orientation: alert, awake and oriented x3 HENMT Head: normal to inspection Ears: external ears normal General nose exam: external nose normal Mouth: moist mucous membranes Eyes General: appearance normal, both eyes and all related structures Neck Neck: normal visual inspection Resp Effort & Inspection: normal respiratory effort Auscultation: diminished lung sounds Cardio Jugular venous pressure: no JVD Rate: regular rate Skin General skin exam: no rashes or lesions noted Neuro General: patient alert and patient oriented x3 Extrem General: normal to inspection Psych Mental Status: mental status grossly normal Objective Last Vital Signs Temp 36.7 C 06/21/24 02:01 Pulse 85 06/21/24 07:39 Resp 20 06/21/24 02:01 BP 118/56 L 06/21/24 02:01 Pulse Ox 92 06/21/24 08:31 Laboratory Results - last 24 hr 06/20/24 06/21/24 06/21/24 21:15 01:13 03:09 WBC 6.50 6.63 RBC 3.73 L 3.22 L Hgb 9.5 L 8.2 L Hct 33.1 L 28.4 L MCV 89 88 MCH 25.5 L 25.5 L MCHC 28.7 L 28.9 L RDW 17.6 H 17.6 H Plt Count 290 280 MPV 9.5 9.2 Immature Gran % Neutrophils % Lymphocytes % Monocytes % Eosinophils % Basophils % Nucleated RBC % Absolute Neutrophils Absolute Lymphocytes Absolute Monocytes Absolute Eosinophils Absolute Basophils Sodium Potassium Chloride Carbon Dioxide Anion Gap BUN Creatinine Est GFR (CKD-EPI 2020) Glucose Calcium Magnesium Stl C.difficile Tox PCR Negative ABO/Rh A Positive Antibody Screen NEGATIVE 06/21/24 06/21/24 06/21/24 05:15 05:40 09:13 WBC Cancelled 8.18 7.47 RBC Cancelled 3.18 L 3.35 L Hgb Cancelled 8.1 L 8.5 L Hct Cancelled 27.3 L 29.9 L MCV Cancelled 86 89 MCH Cancelled 25.5 L 25.4 L MCHC Cancelled 29.7 L 28.4 L RDW Cancelled 17.7 H 17.6 H Plt Count Cancelled 297 314 MPV Cancelled 9.9 9.0 Immature Gran % 0.2 Neutrophils % 78.8 Lymphocytes % 6.2 Monocytes % 9.9 Eosinophils % 4.3 Basophils % 0.6 Nucleated RBC % 0.0 Absolute Neutrophils 6.44 Absolute Lymphocytes 0.51 L Absolute Monocytes 0.81 H Absolute Eosinophils 0.35 Absolute Basophils 0.05 Sodium 137 Potassium 5.0 D Chloride 102 Carbon Dioxide 28.1 Anion Gap 6.9 BUN 24 H Creatinine 0.8 Est GFR (CKD-EPI 2020) 77.27 Glucose 104 Calcium 8.5 Magnesium 1.9 Stl C.difficile Tox PCR ABO/Rh Antibody Screen Time Spent with Patient Time Spent with Patient: 35-49 minutes Time was spent: preparing to see the patient(eg.review tests), obtaining and/or reviewing separately otained hiistory, ordering medications,tests, procedures, indepentently interpreting results and counseling the patient
--- NOTE | 2024-06-21 11:47 | NUR.NOTE ---
Airplane [employer] sent message to provider Jarred Gonzalez NP inquiring whether patient's home medication (Nexium) could be contributing to patient having loose, bloody stools (referencing Lexicomp). Received new order indicating Nexium had been discontinued. See orders/MAR.
[2024-06-21 18:45] LABS: HCT 28.7 % (36.0-46.0); HGB 8.2 g/dL (11.2-15.7)
[2024-06-21] MEDS: Pantoprazole 40 MG VIAL IVP (21:42)
[2024-06-22] VITALS (14 sets, daily range): BP systolic 110–131; BP diastolic 52–78; PULSE 74–95; RESP 0–30; TEMP 36.5–36.9; O2SAT 89–97; BMI 27.9
[2024-06-22] MEDS: AMPICILLIN/SULBACTAM 3 GM in Normal Saline 100 ML IVPB ×2 (04:26→12:40)
[2024-06-22] MEDS: Normal Saline Flush 10 ML SYR IVP ×2 (05:22→12:56)
--- NOTE | 2024-06-22 07:52 | ANES.PREOP_ITS ---
General Info Date of Service Date Performed: 06/22/24 Height: 5 ft Weight: 64.864 kg Body Mass Index (BMI): 27.9 Surgical Procedure: Operation Date: 06/22/24 11:05 Proposed Procedure Side Surgeon p Gastroscopy Shon Hendrickson MD Meds Allergies and Home Medications Allergies Allergy/AdvReac Type Severity Reaction Status Date / Time lorazepam (From Ativan) Allergy Severe Anaphylaxis Verified 06/19/24 07:37 diltiazem Allergy Intermediate LE and Verified 06/19/24 07:37 Facial Edema hydrochlorothiazide Allergy Mild rash Verified 06/19/24 07:37 Sulfa (Sulfonamide Allergy Unknown Other (See Verified 06/19/24 07:37 Antibiotics) Comment) metoprolol AdvReac Intermediate Fluid Verified 06/19/24 07:37 Retention lisinopril AdvReac Mild did not Verified 06/19/24 07:37 feel well Home Medication ?Medication ?Instructions ?Recorded acetaminophen 500 mg tablet 1,000 mg PO PRN PRN 10/23/19 albuterol sulfate 90 mcg/actuation 2 puff inhalation Q6H PRN #8.5 06/07/22 aerosol inhaler grams guaifenesin 600 mg tablet, 600 mg PO BID #10 tabs 05/31/24 extended release 12 hr (Mucinex) ipratropium 0.5 mg-albuterol 3 mg 3 ml inhalation QID #180 mL 06/02/24 (2.5 mg base)/3 mL nebulization soln amlodipine 10 mg tablet 10 mg PO BID #180 tabs 06/08/24 benzonatate 100 mg capsule 100 mg PO BID PRN cough #30 caps 06/08/24 digoxin 125 mcg (0.125 mg) tablet 125 mcg PO QAM #90 tabs 06/08/24 esomeprazole magnesium 40 mg 40 mg PO DAILY #90 caps 06/08/24 capsule,delayed release fluticasone 250 mcg-salmeterol 50 1 inh inhalation BID #3 ea 06/08/24 mcg/dose blistr powdr for inhalation (Advair Diskus) furosemide 20 mg tablet See Rx Instructions .Route 06/08/24 .COMPLEX #135 tabs ipratropium 20 mcg-albuterol 100 1 puff inhalation QID #12 grams 06/08/24 mcg/actuation mist for inhalation (Combivent Respimat) montelukast 10 mg tablet 10 mg PO DAILY #90 tab-caps 06/08/24 Current Visit Medications: Current Medications Generic Name Dose Route Start Last Admin Trade Name Freq PRN Reason Stop Dose Admin Acetaminophen 0 mg 06/19/24 16:03 06/21/24 13:38 Acetaminophen 325 Mg Tab PO 650 mg Q4H PRN PRN Administration Albuterol Sulfate 2 puff 06/19/24 16:03 Albuterol Hfa 8 Gm 60 Puff Inh IH Q6H PRN PRN Albuterol/Ipratropium 1 puff 06/19/24 16:03 06/21/24 21:15 Ipratropium/Albuterol 4 Gm 120 Puff Inh IH 1 inh QID WALTER Administration Albuterol/Ipratropium 3 ml 06/19/24 18:47 Albuterol/Ipratropium 3 Ml Upd Vial UPD Q6H PRN PRN Amlodipine Besylate 10 mg 06/19/24 20:00 06/21/24 21:43 Amlodipine 10 Mg Tab PO 10 mg BID WALTER Administration Benzonatate 100 mg 06/19/24 20:00 06/21/24 21:43 Benzonatate 100 Mg Cap PO 100 mg TID WALTER Administration Budesonide/Formoterol Fumarate 0 puff 06/19/24 20:00 06/21/24 21:14 Budesonide/Formoterol 160/4.5 6 Gm 60 Puff Inh IH 2 puffs BID WALTER Administration Device 1 each 06/19/24 16:03 Inhaler, Assist Device DIRECTED WALTER Digoxin 0.125 mg 06/20/24 08:30 06/21/24 07:39 Digoxin 0.125 Mg Tab PO 0.125 mg QAM WALTER Administration Docusate Sodium 100 mg 06/19/24 16:03 06/20/24 07:51 Docusate Sodium 100 Mg Cap PO 100 mg TID PRN PRN Administration Furosemide 40 mg 06/21/24 08:30 06/21/24 07:41 Furosemide 20 Mg Tab PO 40 mg Q48H WALTER Administration Furosemide 20 mg 06/20/24 08:30 06/20/24 07:50 Furosemide 20 Mg Tab PO 20 mg Q48H WALTER Administration Guaifenesin 600 mg 06/19/24 20:00 06/21/24 21:43 Guaifenesin 600 Mg Tabcr PO 600 mg BID WALTER Administration Doxycycline Hyclate 100 mg/ 100 mls @ 100 mls/hr 06/19/24 18:00 06/21/24 23:17 Sodium Chloride IVPB Infused Q12H WALTER Infusion Ampicillin Sodium/Sulbactam 100 mls @ 200 mls/hr 06/20/24 16:00 06/22/24 05:22 Sodium 3 gm/ Sodium Chloride IVPB Infused Q6H WALTER Infusion IV Miscellaneous Supplies 1 each 06/19/24 16:03 Iv Access IV DIRECTED WALTER Montelukast Sodium 10 mg 06/20/24 08:30 06/21/24 07:40 Montelukast 10 Mg Tab PO 10 mg DAILY WALTER Administration Pantoprazole Sodium 40 mg 06/21/24 20:00 06/21/24 21:42 Pantoprazole 40 Mg Vial IVP 40 mg BID WALTER Administration Polyethylene Glycol 17 gm 06/19/24 16:03 06/20/24 16:52 Polyethylene Glycol 3350 17 Gm Packet PO 17 gm DAILY PRN PRN Administration Constipation Sodium Chloride 0 ml 06/19/24 16:03 06/22/24 05:22 Normal Saline Flush 10 Ml Syr IVP 40 ml PRN PRN Administration Sodium Chloride 0 ml 06/19/24 20:00 06/21/24 21:43 Normal Saline Flush 10 Ml Syr IVP 10 ml BID WALTER Administration Sodium Chloride 0 ml 06/19/24 16:03 Normal Saline 10 Ml Vial IJ DIRECTED PRN PFSH Active Problems Active Problems: Problem Status Onset Code GI bleed Acute K92.2 Hypomagnesemia Acute E83.42 Chronic obstructive lung disease Chronic J44.9 Discharge planning issues Acute Z02.9 DVT prophylaxis Acute Z29.9 Heart failure with preserved ejection fraction (HFpEF, >= 50%) Acute I50.30 Hypoxia Acute R09.02 Acute on chronic respiratory failure with hypoxia and hypercapnia Acute J96.21, J96.22 Acute and chronic respiratory failure ([id number]) Acute J96.20 CAP (community acquired pneumonia) Acute J18.9 COPD exacerbation Acute J44.1 Cervical arthritis with myelopathy Acute M47.12 Carpal tunnel syndrome Resolved 02/19/13 G56.00 Arthritis Acute 02/10/13 M19.90 CVA (cerebral vascular accident) Resolved 02/10/13 I63.9 Osteoporosis Acute 01/14/08 M81.0 Tachycardia Chronic R00.0 GERD (gastroesophageal reflux disease) Chronic K21.9 Medical History Medical History (Updated 06/22/24 @ 09:29 by Marley Kolb APRN) Bilateral lower extremity edema Acute respiratory failure with hypoxia HTN (hypertension) COVID-[address] Tobacco dependence due to cigarettes Quit smoking when she was 59 years old COVID-19 -associated with COPD exacerbation Parotid mass Resolved after 3 months without intervention Acute on chronic respiratory failure with hypoxia and hypercapnia Acute on chronic diastolic CHF (congestive heart failure) CAP (community acquired pneumonia) GERD (gastroesophageal reflux disease) HTN (hypertension) Surgical History Surgical History Endoscopic Carpal Tunnel release (03/31/13) Left 7.2.13 Tobacco Smoking/Tobacco Use Status: Former Tobacco Use Passive smoking exposure: Yes Second hand exposure: Yes Alcohol Alcohol Intake: never Substance Use Substance use: Never Substance use type: does not use Counseling provided: none Vital Signs and Lab Results Vital Signs Most Recent Vital Signs in EMR: Most Recent Vital Signs Temp Pulse Resp BP Pulse Ox 36.6 C 94 H 15 110/78 92 06/22/24 07:32 06/22/24 07:32 06/22/24 07:32 06/22/24 07:32 06/22/24 07:32 Lab Results 06/21/24 18:35 06/21/24 05:40 Blood Type / Crossmatch: 2 Antibody Screen NEGATIVE 06/21/24 Complete Blood Count: 2 White Blood Count 7.47 10^3/uL (4.4-10.8) 06/21/24 09:13 Red Blood Count 3.35 10^6/uL (3.93-5.22) L 06/21/24 09:13 Hemoglobin 8.2 g/dL (11.2-15.7) L 06/21/24 18:35 Hematocrit 28.7 % (36.0-46.0) L 06/21/24 18:35 Platelet Count 314 10^3/uL (130-400) 06/21/24 09:13 Complete Metabolic Panel: 2 Sodium 137 mmol/L (136-145) 06/21/24 05:40 Potassium 5.0 mmol/L (3.5-5.1) 06/21/24 05:40 Chloride 102 mmol/L (98-107) 06/21/24 05:40 Carbon Dioxide 28.1 mmol/L (21.0-32.0) 06/21/24 05:40 BUN 24 mg/dL (7-18) H 06/21/24 05:40 Creatinine 0.8 mg/dL (0.55-1.02) 06/21/24 05:40 Est GFR (CKD-EPI 2020) 77.27 (mL/min/1.73m2) 06/21/24 05:40 Magnesium 1.9 mg/dL (1.8-2.4) 06/21/24 05:40 Calcium 8.5 mg/dL (8.5-10.1) 06/21/24 05:40 Albumin 3.4 g/dL (3.4-5.0) 06/19/24 06:23 Glucose 104 mg/dL (74-106) 06/21/24 05:40 Liver Function Panel: 2 Alanine Aminotransferase (ALT/SGPT) 25 U/L (14-59) 06/19/24 06: 23 Aspartate Amino Transf (AST/SGOT) 15 U/L (15-37) 06/19/24 06:23 Coagulation Panel: 2 INR International Normalized Ratio 0.9 (0.9-1.1) 06/19/24 06:2 3 Prothrombin Time 9.5 sec (9.1-11.1) 06/19/24 06:23 Activated Partial Thromboplast Time 28.3 sec (23.6-32.8) 06:23 Cardiac Panel: 2 Troponin I 20 ng/L (<or=51) 06/19/24 NT-Pro-B Natriuret Pep 3751 pg/mL (<300) H 05/29/24 Arterial Blood Gas: 2 No Data to Display Venous Blood Gas: 2 Venous Blood pH 7.30 (7.31-7.41) L 06/19/24 06:23 Venous Blood Partial Pressure O2 84 mmHg 06/19/24 06:23 Venous Blood Partial Pressure CO2 65 mmHg (41-51) H* 06/19/24 0 6:23 Venous Blood Oxygen Saturation 96 % 06/19/24 06:23 Venous Blood HCO3 32 mmol/L (23-28) H 06/19/24 06:23 Venous Blood Base Excess 5 mmol/L (-2-3) H 06/19/24 06:23 Venous Blood Total Carbon Dioxide 30 mmol/L (24-29) H 06/19/24 06:23 Pancreas Panel: 2 No Data to Display Thyroid Panel: 2 No Data to Display Infectious Disease: 2 Coronavirus (COVID-19)(PCR) Negative (Negative) 06/19/24 08:50 Coronavirus 2019 Source Nasopharynx 06/19/24 08:50 Influenza Virus Type A (PCR) Negative (Negative) 06/19/24 08:5 0 Influenza Virus Type B (PCR) Negative (Negative) 06/19/24 08:5 0 Respiratory Syncytial Virus (PCR) Negative (Negative) 06/19/24 08:50 Blood Cultures: 2 No Data to Display Toxicology Panel: 2 Digoxin Level 0.72 ng/mL (0.90-2.00) L 06/19/24 06:23 Imaging and Studies Imaging and Studies Study information below may be from another EMR and interpreted by another provider. Please see original notes in EMR for more complete details. EKG Summary: DATE/TIME OF SERVICE: 06/19/24613 : 1950 PERFORMING LOCATION: ER APPROVED REPORT Exam: Resting ECG Reason for Exam: possible herat attack Patient Location: E HR:97 bpm ECG Measurements Heart Rate 97 AXIS MA 168 P 80 QRSd 83 QRS 103 QT 332 T45 QTc 425 Conclusion Unknown rhythm, irregular rate...V-rate 77-125, variation>10% Right axis deviation...QRS axis ( 91,269) Physician: no stemi Stress Test Summary: Date of study: 02/05/2019 *PATIENT PRESENTATION* Height: 157.5cm (62in) Blood Pressure: Weight: 75.5kg (166lb) BSA: 1.84m^2 Referring physician: Valentin Murray Ordering physician: Angelina Chino Impressions: Normal perfusion and contraction by Tc99m Sestamibi Imaging. Summary: 1. Myocardial perfusion imaging: No myocardial perfusion defects noted. 2. The calculated left ventricular ejection fraction after stress: 75%. LV global systolic function is normal. No left ventricular regional motion abnormality. 3. Stress ECG conclusions: The stress ECG is negative. 4. Stress: There is resting hypertension with a hypertensive response to stress. Stress-induced atypical chest pain. Echocardiogram Summary: Date of Exam: 06/19/24 Sex: F Admission Date: 06/19/24 : 1950 Age: 73 APPROVED REPORT EXAM: Comprehensive 2D, Doppler, and color-flow Echocardiogram Patient Location: ER Room/Bed: 1 Supervisor Hot Dip Tinning: Darion Badillo RDCS (AE) Indications: Hypoxia Other Information Technically limited study due to body habitus, inability to position patient. Conclusion Normal left ventricular wall thickness and chamber size. Ejection fraction is 65%. Wall motion is normal Right ventricle is mildly enlarged and hypocontractile Both atria are normal in size There are no structural valvular abnormalities Estimated right ventricular systolic pressure is 52 mmHg Anesthesia Assessment and Plan Anesthesia History Personal History: No History of Anesthesia Complications Family History: No Family History of Anesthesia Complications Exercise Tolerance Exercise Tolerance: Metabolic Equivalents<4 Pertinent Negatives Pertinent Negatives: No Symptoms of GERD Cardiac & Pulmonary Exam Cardiac Exam: Normal S1/S2 Heart Sounds Pulmonary Exam: Clear Bilateral Breath Sounds Implantable Cardiac Device Does patient have a Pacemaker or an ICD?: No Airway Exam Known Difficult Airway: No Mallampati Class: 2 Mouth Opening: Normal (> 3cm) Thyromental Distance: Greater than 3 cm Neck Range of Motion: Full ROM Neck Circumference: Normal Teeth Condition: Removable Dentures/Plates Upper ASA Classification ASA Score: ASA 4 Emergency Case?: No NPO Status NPO Status: NPO Clears >2 hours, Solids >8 hours Anesthesia Plan Resuscitation Status: DNR Fully Suspended During Perioperative Period Anesthesia Technique: General Anesthesia Airway Planned: Natural Airway Monitors Used: Standard Monitors Preoperative Comments:: Last hot chocolate at 0445 today. Uses oxygen 2LPM since early May given pneumonia, gets SOB with talking and movement. Agrees to suspend dnr/dni during procedure. Discussed pulmonary complications up to and including requiring ventilation or prolonged ventilation if needed. Pt. wishes to proceed and seems to understand risk. Very appropriate during conversation.
--- NOTE | 2024-06-22 08:10 | W.PM.PROGNOT ---
Date of Service Date of service: 06/22/24 Time of Service: 08:10 Assessment and Plan Assessment and plan (1) GI bleed: Status: Acute Assessment and plan: 73-year-old woman with many multiple medical problems chronically who had acute GI bleeding. She is hemodynamically stable and her respiratory effort is at baseline. Clinically her bleeding seems to have stopped and her hemoglobin is stable. Upper endoscopy indicated to try to establish a definitive diagnosis for the bleeding or at minimum, rule out a foregut source to guide further management. Overall plan: EGD Subjective Subjective Interval history since last seen: No more bleeding overnight. No complaints at the bedside. Exam Narrative Exam Narrative: Gen: Non-toxic, comfortable and interactive. Elderly, feeble, chronically ill Neuro: Alert and oriented x3 Psych: Good mood and affect. Good insight and understanding into condition. Chest: Non-labored breathing, no wheezing, nasal cannula oxygen at baseline Heart: Regular Objective Last Vital Signs Temp 97.9 F 06/22/24 07:32 Pulse 94 H 06/22/24 07:32 Resp 15 06/22/24 07:32 BP 110/78 06/22/24 07:32 Pulse Ox 92 06/22/24 07:32 Laboratory Results - last 24 hr 06/21/24 06/21/24 09:13 18:35 WBC 7.47 RBC 3.35 L Hgb 8.5 L 8.2 L Hct 29.9 L 28.7 L MCV 89 MCH 25.4 L MCHC 28.4 L RDW 17.6 H Plt Count 314 MPV 9.0 Time Spent with Patient Time Spent with Patient: <25 minutes Time was spent: preparing to see the patient(eg.review tests), obtaining and/or reviewing separately otained hiistory, referring, communicating with other health childbirth and infant care teacher, indepentently interpreting results, counseling the patient and care coordination
[2024-06-22] MEDS: Ipratropium/Albuterol 4 GM 120 PUFF INH IH ×3 (08:15→16:24)
[2024-06-22] MEDS: Budesonide/Formoterol 160/4.5 6 GM 60 PUFF INH IH (08:15)
[2024-06-22] MEDS: Pantoprazole 40 MG VIAL IVP (08:45)
[2024-06-22] MEDS: Digoxin 0.125 MG TAB PO (08:45)
[2024-06-22] MEDS: Benzonatate 100 MG CAP PO ×2 (08:46→14:44)
[2024-06-22] MEDS: amLODIPine 10 MG TAB PO (08:46)
[2024-06-22] MEDS: guaiFENesin 600 MG TABCR PO (08:46)
[2024-06-22] MEDS: Montelukast 10 MG TAB PO (08:46)
[2024-06-22] MEDS: Furosemide 20 MG TAB PO (08:46)
[2024-06-22] MEDS: Normal Saline 10 ML VIAL IJ (08:47)
--- NOTE | 2024-06-22 09:23 | W.PM.PROGNOT ---
Date of Service Date of service: 06/22/24 Time of Service: Assessment and Plan Assessment and plan (1) GI bleed: Status: Acute Assessment and plan: enoxaparin placed on hold surgical consult pending change nexium to protonix IVP BID trend H&H (2) CAP (community acquired pneumonia): Status: Acute Assessment and plan: continue doxycycline and Unasyn day 3/5 Mucinex Tessalon perle Albuterol/ ipratropium nebs PRN Home Albuterol INH IS Acapella O2 home requirement and as needed to maintain sat 88-92% (3) Acute and chronic respiratory failure ([id number]): Status: Acute Assessment and plan: As above (4) Chronic obstructive lung disease: Status: Chronic Assessment and plan: Home CPAP and oxygen PH 7.43 with PCO2 65 around baseline no steroid need Qualifiers: COPD type: emphysema Emphysema type: unspecified Qualified Code(s): J43.9 - Emphysema, unspecified (5) Hypomagnesemia: Status: Acute Assessment and plan: replete and follow (6) Heart failure with preserved ejection fraction (HFpEF, >= 50%): Status: Acute Assessment and plan: continue home lasix Echo Conclusion Normal left ventricular wall thickness and chamber size. Ejection fraction is 65%. Wall motion is normal Right ventricle is mildly enlarged and hypocontractile Both atria are normal in size There are no structural valvular abnormalities Estimated right ventricular systolic pressure is 52 mmHg , (was 40-50 mmHg in 2019) (7) DVT prophylaxis: Status: Acute Assessment and plan: enoxaparin discontinued in setting of gi bleeding continue home compression stockings. patient has not been on bedrest. (8) Discharge planning issues: Status: Acute Assessment and plan: home with no services when medically stable discussed with DR Regan. (9) Anemia: Status: Chronic Assessment and plan: Hemodynamically stable and her respiratory effort is at baseline. Clinically her bleeding seems to have stopped and her hemoglobin is stable. Surgical consult with Dr. Hendrickson Upper endoscopy indicated to try to establish a definitive diagnosis for the bleeding or at minimum, rule out a foregut source to guide further management. Overall plan: EGD- OPD VS INPATIENT Exam Const General: cooperative, comfortable and no acute distress Nutritional Appearance: average body habitus Orientation: alert, awake and oriented x3 HENMT Head: normal to inspection Ears: external ears normal General nose exam: external nose normal Mouth: moist mucous membranes Eyes General: appearance normal, both eyes and all related structures Neck Neck: normal visual inspection Resp Effort & Inspection: normal respiratory effort Auscultation: diminished lung sounds Cardio Jugular venous pressure: no JVD Rate: regular rate Skin General skin exam: no rashes or lesions noted Neuro General: patient alert and patient oriented x3 Extrem General: normal to inspection Psych Mental Status: mental status grossly normal Objective Last Vital Signs Temp 36.6 C 06/22/24 07:32 Pulse 90 06/22/24 08:45 Resp 15 06/22/24 07:32 BP 110/78 06/22/24 07:32 Pulse Ox 89 L 06/22/24 08:17 Laboratory Results - last 24 hr 06/21/24 18:35 Hgb 8.2 L Hct 28.7 L
[2024-06-22] MEDS: DOXYCYCLINE 100 MG in Normal Saline 100 ML IVPB (09:53)
--- NOTE | 2024-06-22 09:55 | PT.INNT ---
PT Notes Visit Reasons: Acute on Chronic Hypoxic Respiratory Failure, CAP Pt not available for therapy this morning, pt NPO as of the time being and is getting ready for a procedure downstairs (upper endoscopy), pt expressed that she would try to participate later in the afternoon after her procedure.
--- NOTE | 2024-06-22 11:05 | PDOC.HHF2F_ITS ---
Home Health Referral Home Health Orders Clinical synopsis of why skilled professionals are needed: This 73-year-old female patient with past medical history of cerebrovascular accident, chronic obstructive pulmonary disease with recent need for oxygen requirement at 2 L, remote tobacco abuse history, recent community acquired pneumonia discharged home on cefpodoxime in early May, pulmonary mass with potential pleural extension for which patient had refused workup and surgical intervention presented to the emergency room at [facility] on 06/19/2024 for evaluation of chest pain. Patient reporting that stairs chest pain started around 2 AM with the feeling of heart racing with spontaneous resolution within a couple of minutes. On arrival to the ED patient denied chills fever and reported resolution of chest pain. The patient reported that her respiratory status had improved since her last discharge but then worsened. EKG showed sinus rhythm heart rate [address] elevation or significant ST depression. Significant workup in the ED showed a pH of 7.3 with a pCO2 of 65 close to baseline, chemistry panel was stable, troponins were negative x 2, digoxin level was slightly subtherapeutic at 0.72, procalcitonin was negative. CT was ordered with concern for differential diagnostic of pulmonary emboli, aspirin 325mg was administered due to report of chest pain, and breathing treatment was administered for differential diagnosis of COPD. Furthermore, on ambulation to the bathroom on 2 L of oxygen the patient decompensated with saturation in oxygen dropping into the 60s and respiratory rate up to the 30s. 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 During the stay the patient continued to be treated with Unasyn and doxycycline, mucinex, as needed nebulizer treatment and DVT prophylaxis was initiated with enoxaparin subcutaneous. Chronic conditions were treated as per home medicine regimen. The patient developed an episode of hematochezia and surgery was consulted. Enoxaparin was stopped. hemoglobin had dropped from 11 g/dL to a gram per deciliter without tachycardia or hypotension. The patient underwent an upper endoscopy with findings of inflame mucosal lining of the antrum, gastric body as well as gastric polyps which were biopsied; biopsy was taken to rule out H. pylori. Other findings are negative for ulcers, Livingston's esophagus but positive for hiatal hernia with Hill grade 2 defect. Surgery recommends follow- up with PCP as bleeding seems to have been more likely from diverticulosis or hemorrhoid bleeding. Further recommendations are for discussion of the colonoscopy between the patient and the primary care practitioner as the patient never had a colonoscopy in the past. Today, patient stated that her breathing is back to baseline. The patient will be discharged home on a short course of Augmentin and oral doxycycline with resumption of home health physical therapy and nursing. Proton pump inhibitor?Protonix 40 mg orally twice a day was also ordered on discharge in the setting of gastrointestinal bleeding. Creatinine remained at baseline. Hemoglobin remained stable at 7.9. An iron supplement will be initiated with recommendation for the patient to discuss continuation with the primary care provider. The patient will have to discuss the continuation of the proton pump inhibitor with the primary care practitioner. The patient will have to follow- up with her primary care practitioner within 7 days of discharge. Medical diagnosis necessitation home health referral: Pneumonia, anemia- hematochezia Registered Nurse: Check all that apply Instruct on new or changed medication(s)/assess compliance: Ordered Assess for exacerbation of medical condition, instruct patient/caregivers on signs and symptoms to report for early detection: Ordered Other: hematochezia, pneumonia Physical Therapist: Check all that apply Increase strength & endurance for safe mobility at home: Ordered To design/establish home maintenance program: Ordered Fall reduction therapy program for patient with history of frequent falls: Ordered Home safety evaluation and teaching/gait training including stair management (if applicable): Ordered Better Breathing Program: Ordered Other: PT note: Activity tolerance improving. Patient now more able to appreciate being able to feel her symptoms in relation to desaturation so she is more keen about activity pacing/cessation to minimize SOB and fatigue. Plan: Regain PLOF of modified independent with use of FWW for indoor ambulation. Butane Compressor Operator: Assist with community resources: Ordered Assist with intermediate card tender care planning: Ordered Home Bound Status Requires the aid of supportive device (check all that apply): Walker Patient has a condition such that leaving home is medically contraindicated (Describe): Patient requires oxygen Describe why leaving home would require a considerable and taxing effort: Requires frequent rest periods and Oxygen Encounter Date and Reason: I certify that a FTF encounter for this patient was performed on June 22, 2024 and that such encounter was related to the primary reason the patient requires home health services. The encounter was conducted in the following manner: * By me as the certifying physician, SET UP WORKER, PA or * By an inpatient physician, SET UP WORKER or PA during an inpatient stay who communicated findings to me, Certification And Authentication I certify that I composed the above information based on my clinical judgment relating to this patient's medical condition and, if applicable, clinical findings communicated to me by the NPP or inpatient physician who performed the FTF encounter. Name of Provider that will be monitoring home health services: Deven Roberto
[2024-06-22 11:12] LABS: Abs Immature Grans 0.05 10^3/uL (0.0-0.06); Absolute Basophil Count 0.06 10^3/uL (0.0-0.2); Absolute Eosinophil Count 0.22 10^3/uL (0.0-0.7); Absolute Lymphocyte Count 0.55 10^3/uL (1.2-3.4); Absolute Monocyte Count 0.63 10^3/uL (0.1-0.8); Absolute Neutrophil Count 6.12 10^3/uL (1.2-6.7); Basophils % 0.8 %; Eosinophils % 2.9 %; HCT 27.3 % (36.0-46.0); HGB 7.9 g/dL (11.2-15.7); Immature Grans % 0.7 %; Lymphocytes % 7.2 %; MCH 25.5 pg (27.0-33.0); MCHC 28.9 % (32.0-36.0); MCV 88 fL (80-95); MPV 9.3 fL (8.0-11.0); Monocytes % 8.3 %; Neutrophils % 80.1 %; Platelet Count 313 10^3/uL (130-400); RDW-SD 57.4 fL; WBC 7.63 10^3/uL (4.4-10.8)
[2024-06-22 11:19] LABS: Anion Gap 6.4 mmol/L (3-11); BUN 24 mg/dL (7-18); CO2 31.6 mmol/L (21.0-32.0); CREATININE 0.9 mg/dL (0.55-1.02); Calcium 8.7 mg/dL (8.5-10.1); Chloride 101 mmol/L (98-107); Estimated GFR 67.08 (mL/min/1.73m2); Glucose 102 mg/dL (74-106); Potassium 4.4 mmol/L (3.5-5.1); Sodium 139 mmol/L (136-145)
[2024-06-22] MEDS: Lactated Ringers 1,000 ML 30 ML IV (11:23)
--- NOTE | 2024-06-22 11:37 | STOM_PTH ---
PATIENT: Jackie Myers LOC: U#:[id number] AGE/SX: 73/F ROOM: RE06/19/[address]: Feng Regan MD : 1950 BED: A DIS: 06/22/2024 SPEC #: [id number] RECD: 06/22/24 13:18 STATUS: TONY REQ #: [id number] ANTONIO: 06/22/24 11:[address]: Feng Regan DEPT: Surgical Specimen RECD BY: Louisa Connors ENTERED: 06/22/24 13:20 SP TYPE: STOMACH OTHR DR: Deven Fernández, [facility] Tissues: 1 - STOMACH BIOPSY 2 - STOMACH BIOPSY 3 - STOMACH BIOPSY Procedures: GROSS AND MICRO LEVEL 4 IMMUNOPEROXIDASE STAIN Comments: [id number]
--- NOTE | 2024-06-22 11:45 | PHA.REVIEW2 ---
Pharmacy Admission Review Admission Clinical Review Admission Pharmacy Review: GI bleed (Acute) Hypomagnesemia (Acute) Discharge planning issues (Acute) DVT prophylaxis (Acute) Heart failure with preserved ejection fraction (HFpEF, >= 50%) (Acute) Hypoxia (Acute) Acute and chronic respiratory failure ([id number]) (Acute) CAP (community acquired pneumonia) (Acute) lorazepam (From Ativan) Allergy (Severe, Verified 06/19/24 07:37) Anaphylaxis diltiazem Allergy (Intermediate, Verified 06/19/24 07:37) LE and Facial Edema hydrochlorothiazide Allergy (Mild, Verified 06/19/24 07:37) rash Sulfa (Sulfonamide Antibiotics) Allergy (Unknown, Verified 06/19/24 07:37) Other (See Comment) metoprolol Adverse Reaction (Intermediate, Verified 06/19/24 07:37) Fluid Retention lisinopril Adverse Reaction (Mild, Verified 06/19/24 07:37) did not feel well Resuscitation Status DNR/DNI Height 5 ft Weight 64.864 kg Pharmacy Admission Review Renal Dosing Renal Dosing: BUN 24 mg/dL (7-18) H 06/22/24 10:51 Creatinine 0.9 mg/dL (0.55-1.02) 06/22/24 10:51 Medications needing adjustments: Reviewed (CrCl 41.49 mL/min) List of meds needing interventions: Current medications are okay Anticoagulation Anticoagulation: Hgb 7.9 g/dL (11.2-15.7) L 06/22/24 10:51 Hct 27.3 % (36.0-46.0) L 06/22/24 10:51 Plt Count 313 10^3/uL (130-400) 06/22/24 10:51 INR 0.9 (0.9-1.1) 06/19/24 06:23 Creatinine 0.9 mg/dL (0.55-1.02) 06/22/24 10:51 DVT Prophylaxis: Reviewed (TEDs - GI bleed, Hgb decreased from 8.2) Relevant Labs Relevant Labs: Sodium 139 mmol/L (136-145) 06/22/24 10:51 Potassium 4.4 mmol/L (3.5-5.1) 06/22/24 10:51 Chloride 101 mmol/L (98-107) 06/22/24 10:51 Magnesium 1.9 mg/dL (1.8-2.4) 06/21/24 05:40 Electrolytes, C-Reactive P, ESR: Reviewed Cardiac Review Cardiac Review: Troponin I 20 ng/L (<or=51) 06/19/24 09:42 BP, HR, EF%: Reviewed (BP and HR WNL) List meds needing interventions: Has order for amlodipine 10mg BID, digoxin 0.125mg daily and furosemide 20mg every other day alternating with 40mg QTc Review QTc: Reviewed (425 from 06/19/24) IV to PO Switch IV Medications: Reviewed (Unasyn and doxycycline and pantoprazole - patient currently NPO due to procedure today) Home Meds Home Med List reviewed: Reviewed Relevent Home Meds Not ordered & why?: esomeprazole (has order for IV pantoprazole) and Advair (substituted with Symbicort per pharmacy protocol) Current Meds Current Medication Order Review: Intervened Comments: changed timing of pantoprazole from 829 and 1999 to 729 and 1999 per pharmacy protocol Pharmacy Antibiotic Review Relevant Labs: WBC 7.63 10^3/uL (4.4-10.8) 06/22/24 10:51 Procalcitonin < 0.1 ng/mL 06/19/24 06:23 Temperature 36.6 C Temperature 36.6 C Pharmacy Antibiotic Activity: Reviewed, no change Comments: Patient is on doxycycline and Unasyn, day 3 out of 5, for CAP.
--- NOTE | 2024-06-22 11:50 | ENDO_ITS ---
Date of service: 06/22/24 Time of Service: 11:50 Endoscopy Report PROCEDURE DESCRIPTION: PROCEDURES PERFORMED: 1. EGD with biopsies PREOPERATIVE DIAGNOSIS: GI bleeding POSTOPERATIVE DIAGNOSIS: Mild gastritis/gastropathy, gastric polyps, small(1- 2cm) type I sliding hiatal hernia SURGEON: Farida Hendrickson MD INDICATION FOR PROCEDURE: 73-year-old woman who had a significant amount of painless rectal bleeding suddenly while hospitalized for other issues in the last 36 hours. The bleeding seems to have subsided clinically and her hemoglobin is stable. Upper endoscopy indicated to rule out foregut etiologies. FINDINGS: D2/D3 = normal D1/bulb = normal - no ulcers or inflammation Pylorus = normal Antrum = mildly inflamed appearance, could be gastropathy, no ulcers, cold forceps biopsies were taken to rule out H. pylori routinely Body = mildly inflamed appearance diffusely, again could be gastropathy, biopsies taken with cold forceps technique routinely Fundus = a couple of small benign?gastric polyps are noted and the largest one was biopsied with cold forceps technique. Cardia = normal Hiatus = sliding hiatal hernia, Hill grade 2 defect. About 1-2 cm slide. Distal esophagus = no obvious or visible inflammation, no esophagitis, no Livingston's, no stricture. I did not take biopsies because it certainly is not contributing to her presentation and aside from there being a small hernia, there is no visible inflammation. Mid esophagus = normal Proximal esophagus/hypopharynx/vocal cords = normal SURVEILLANCE-INTERVAL/FOLLOW-UP: Follow-up with PCP. Bleeding likely was either from a condition called diverticulosis or could have even been hemorrhoid blee ding. A colon malignancy(cancer) is within the differential diagnosis since the patient has never had a colonoscopy. Unclear what her overall prognosis is for her other conditions. Defer to her and her PCP to decide whether or not a colonoscopy is indicated. Statistically there will be a relatively low?yield of finding a certain cause for the bleeding, but it may be indicated to rule out the above?mentioned issues. Specimens: Yes EBL: Minimal COMPLICATIONS: None Procedure in detail: The patient gave written consent and was in agreement with the indications, the potential risks as well as the benefits of the procedure. The patient was taken to the endoscopy suite and laid on their left side. Anesthesia was given which was tolerated well. We performed a timeout and we are in agreement I started the procedure. A well-lubricated endoscope was gently and carefully advanced down the esophagus, into the stomach the scope was and through the pylorus into the duodenum. The scope was then slowly withdrawn with the above-noted findings/interventions. The patient tolerated the procedure well.
--- NOTE | 2024-06-22 11:52 | W.ANESPOSTOP ---
Postoperative Evaluation Date, Time and Location Date Performed: 06/22/24 Time Performed: 11:55 Patient Location: PACU Vital Signs Most Recent Imported Vital Signs: Most Recent Vital Signs Temp Pulse Resp BP Pulse Ox 36.6 C 90 15 110/78 92 06/22/24 07:32 06/22/24 08:45 06/22/24 07:32 06/22/24 07:32 06/22/24 10:16 Pain Score Most Recent Pain Score: Most Recent Pain Score Pain Level [Head] 6 06/22/24 10:16 Pain Level 0 06/22/24 07:32 Assessment Mental Status: Awake (Alert & Oriented to Patient Baseline) Airway and Respiratory Function: Patent airway with normal (patient baseline) respiratory exam Cardiovascular Function: Hemodynamically Stable Hydration Status: Adequately Hydrated Nausea & Vomiting: No Nausea or Vomiting Pain: Pt. Denies Any Pain Peripheral Nerve Block: Patient did not receive a nerve block Teaching Patient Teaching: Discussed Safe Use of Pain Medication Given Recent Anesthesia
--- NOTE | 2024-06-22 13:57 | PT.INTREAT ---
PT Notes Visit Reasons: Acute on Chronic Hypoxic Respiratory Failure, CAP 06/22/2024 PRECAUTIONS:Standard SUBJECTIVE: Pt agreeable to participating with afternoon session, pt sitting at the EOB. OBJECTIVE: ?2L NC 02 support, ?IV line BUE ? VITALS: Pre-Treatment: Oxygen 91% and dropped to 75% with walking. goes back up to 91% after standing rest break with DBE Therapeutic Activities 80878: Direct one-on-one instruction in dynamic activities to improve functional performance. ? BED MOBILITY/TRANSFERS? Sit-stand: SBA? Stand-sit: SBA ? GAIT? Assistive Device: FWW? Weight bearing: Full Assist: SBA? Distance:? 50'x4 taking standing rest break in between distance for O2 recovery doing DBE. ? ASSESSMENT:? Pt pt reports she feels ok even if saO2 goes down to 75%, pt major complaint is of the back pain which is relieved by STM while pt is taking rest breaks. PLAN: Cont as per PT POC. TREATMENT CODE/TIME: 82069m1 16mins (1:38-1:54pm)
--- NOTE | 2024-06-22 15:24 | W.PM.DS.N ---
Date of service: 06/22/24 Time of Service: 15:24 DS: Diagnosis Discharge Diagnosis (1) GI bleed: Status: Acute (2) CAP (community acquired pneumonia): Status: Acute (3) Acute and chronic respiratory failure ([id number]): Status: Acute (4) Chronic obstructive lung disease: Status: Chronic (5) Hypomagnesemia: Status: Acute (6) Heart failure with preserved ejection fraction (HFpEF, >= 50%): Status: Acute (7) DVT prophylaxis: Status: Acute (8) Discharge planning issues: Status: Acute (9) Anemia: Status: Chronic Discharge Plan Disposition Patient Disposition: Home W/Home Health Services Condition: Improving Discharge Details Reason For Visit: Acute on Chronic Hypoxic Respiratory Failure, CAP Admit Date/Time: 06/19/24 09:29 Admit Provider: Feng Regan Attending Provider: Feng Regan Primary Care Provider: Deven Collier Hospital Course Hospital Course: This 73-year-old female patient with past medical history of cerebrovascular accident, chronic obstructive pulmonary disease with recent need for oxygen requirement at 2 L, remote tobacco abuse history, recent community acquired pneumonia discharged home on cefpodoxime in early May, pulmonary mass with potential pleural extension for which patient had refused workup and surgical intervention presented to the emergency room at [facility] on 06/19/2024 for evaluation of chest pain. Patient reporting that stairs chest pain started around 2 AM with the feeling of heart racing with spontaneous resolution within a couple of minutes. On arrival to the ED patient denied chills fever and reported resolution of chest pain. The patient reported that her respiratory status had improved since her last discharge but then worsened. EKG showed sinus rhythm heart rate [address] elevation or significant ST depression. Significant workup in the ED showed a pH of 7.3 with a pCO2 of 65 close to baseline, chemistry panel was stable, troponins were negative x 2, digoxin level was slightly subtherapeutic at 0.72, procalcitonin was negative. CT was ordered with concern for differential diagnostic of pulmonary emboli, aspirin 325mg was administered due to report of chest pain, and breathing treatment was administered for differential diagnosis of COPD. Furthermore, on ambulation to the bathroom on 2 L of oxygen the patient decompensated with saturation in oxygen dropping into the 60s and respiratory rate up to the 30s. Thehospitalist service was consulted and the patient admitted for acute on chronic hypoxic respiratory failure, community-acquired pneumonia. An echocardiogram was completed with the following result: Conclusion Normal left ventricular wall thickness and chamber size. Ejection fraction is 65%. Wall motion is normal Right ventricle is mildly enlarged and hypocontractile Both atria are normal in size There are no structural valvular abnormalities Estimated right ventricular systolic pressure is 52 mmHg CTA was completed with the following impressions: 1. No pulmonary arterial embolism. 2. Patchy right lower lobe airspace opacities, new from 05/29/2024. Query aspiration. 3. 5 mm left upper lobe solid pulmonary nodule. For patients at low risk (minimal or absent history of smoking and of other known risk factors), no routine follow-up is indicated. For patients at high risk (history of smoking or of other known risk factors), consider optional CT Chest at 12 months. 4. Moderate emphysema with fibrosis. During the stay the patient continued to be treated with Unasyn and doxycycline, mucinex, as needed nebulizer treatment and DVT prophylaxis was initiated with enoxaparin subcutaneous. Chronic conditions were treated as per home medicine regimen. The patient developed an episode of hematochezia and surgery was consulted. Enoxaparin was stopped. hemoglobin had dropped from 11 g/dL to a gram per deciliter without tachycardia or hypotension. The patient underwent an upper endoscopy with findings of inflame mucosal lining of the antrum, gastric body as well as gastric polyps which were biopsied; biopsy was taken to rule out H. pylori. Other findings are negative for ulcers, Livingston's esophagus but positive for hiatal hernia with Hill grade 2 defect. Surgery recommends follow-up with PCP as bleeding seems to have been more likely from diverticulosis or hemorrhoid bleeding. Further recommendations are for discussion of the colonoscopy between the patient and the primary care practitioner as the patient never had a colonoscopy in the past. Today, patient stated that her breathing is back to baseline. The patient will be discharged home on a short course of Augmentin and oral doxycycline with resumption of home health physical therapy and nursing. Proton pump inhibitor?Protonix 40 mg orally twice a day was also ordered on discharge in the setting of gastrointestinal bleeding. Creatinine remained at baseline. Hemoglobin remained stable at 7.9. An iron supplement will be initiated with recommendation for the patient to discuss continuation with the primary care provider. The patient will have to discuss the continuation of the proton pump inhibitor with the primary care practitioner. The patient will have to follow-up with her primary care practitioner within 7 days of discharge. Discussed with Dr. Regan Home Meds and New Rx's Prescriptions: New pantoprazole [Protonix] 40 mg tablet,delayed release (DR/EC) 40 mg PO BID Qty: 60 0RF amoxicillin-pot clavulanate 875-125 mg tablet 1 tab PO Q12H Qty: 10 0RF doxycycline hyclate 100 mg capsule 100 mg PO BID Qty: 10 0RF guaifenesin [Mucinex] 600 mg tablet extended release 12hr 600 mg PO Q12H PRNQty: 10 0RF docusate sodium [Colace] 100 mg capsule 100 mg PO DAILY Qty: 30 0RF ferrous sulfate [iron] 325 mg (65 mg iron) tablet 325 mg PO DAILY Qty: 30 0RF Continued Combivent Respimat 20-100 mcg/actuation mist 1 puff IH QID Qty: 12 4RF Rx Instructions: space evenly during waking hours amlodipine 10 mg tablet 10 mg PO BID Qty: 180 3RF digoxin 125 mcg (0.125 mg) tablet 125 mcg PO QAM Qty: 90 4RF esomeprazole magnesium 40 mg capsule,delayed release(DR/EC) 40 mg PO DAILY Qty: 90 3RF fluticasone propion-salmeterol [Advair Diskus] 250-50 mcg/dose blister with device 1 inh Inhalation BID Qty: 3 4RF furosemide 20 mg tablet See Rx Instructions .ROUTE .COMPLEX Qty: 135 4RF Dose Instruction: TAKE 1 TABLET (20MG) BY MOUTH EVERY OTHER DAY ALTERNATING WITH TAKING 2 TABLETS (40MG) BY MOUTH EVERY OTHER DAY Rx Instructions: TAKE 1 TABLET (20MG) BY MOUTH EVERY OTHER DAY ALTERNATING WITH TAKING 2 TABLETS (40MG) BY MOUTH EVERY OTHER DAY montelukast 10 mg tablet 10 mg PO DAILY Qty: 90 3RF benzonatate 100 mg capsule 100 mg PO BID PRN (Reason: cough) Qty: 30 0RF acetaminophen 500 mg Tablet 1,000 mg PO PRN PRN albuterol sulfate 90 mcg/actuation HFA aerosol inhaler 2 puff inhalation Q6H PRNQty: 8.5 0RF guaifenesin [Mucinex] 600 mg tablet extended release 12hr 600 mg PO BID Qty: 10 0RF ipratropium-albuterol 0.5 mg-3 mg(2.5 mg base)/3 mL solution for nebulization 3 ml inhalation QID Qty: 180 0RF Discharge Instructions Stand Alone Forms: Nursing Discharge Form Referrals: Deven Collier [facility] [Primary Care Provider] - (F/u with the PCP within 7 days ) Activity:: Activity as Tolerated Equipment/Supplies:: Oxygen (L/min Below) Diet:: heart healthy DS: Summary Time Spent with Patient providing and/or coordinating discharge services: Greater than 30 minutes Status at Discharge Functional status at discharge: uses cane/walker Overall status at discharge: patient is progressing back to baseline Mental Status: mental status grossly normal Speech and Movement: speech and movement normal Mood: congruent mood Affect: normal affect Quality:SDOH Health Related Social Needs: Health related social needs inadequate housing Health related social needs details lives with son Exam Narrative Exam Narrative: Patient in bed without acute distress, stating that her breathing is back to baselines HENMT: Facial structures with normal appearance Neuro:alert and oriented to self, person, place time and situation. No neurological focal deficit Resp:speaks in full sentences , unlabored breathing,RLL fine crackles, diminished left base Cardio: regular rhythm, S1, S2, no murmur, bilateral radial and dorsalis pedis pulses are positive GI: Abdomen is not distended, soft and non tender, bowel sounds are present Back/spine/Pelvis: normal alignment Extremities: strength 5/5 to bilateral lower and upper extremities Psych: RASS 0, congruent mood and normal affect. Psych Mental Status: mental status grossly normal Speech and Movement: speech and movement normal Mood: congruent mood Affect: normal affect DS: Data Vitals/I&O Vitals and I&O: Vital Signs Temperature 36.5 C 06/22/24 15:15 Temperature Source Skin 06/22/24 15:15 Pulse 82 06/22/24 15:15 Pulse Rhythm Irregular 06/19/24 15:31 Pulse 81 06/22/24 12:01 Respiratory Rate 15 06/22/24 15:15 Respiratory Effort Short of Breath, Labored, Accessory Muscle Use, Nasal Flaring, Pursed Lip 06/19/24 15:31 Respiratory Depth Shallow 06/19/24 15:31 Respiratory Pattern Tachypnea 06/19/24 15:31 Blood Pressure 125/53 L 06/22/24 15:15 Blood Pressure Mean 80 06/22/24 12:01 Blood Pressure Position Supine 06/19/24 06:12 Pulse Oximetry 97 06/22/24 15:15 Oxygen Delivery Method Room Air 06/22/24 15:15 Oxygen Flow Rate 0 06/22/24 15:15 Pain Level 0 06/22/24 15:15 Comment vitals relayed to RN 06/20/24 07:36 Intake & Output 06/21/24 06/22/24 06/22/24 23:59 11:59 23:59 Intake Total 200 / 500 350 / 600 250 / 600 Balance 200 / -250 350 / 600 250 / 600 Weight 64.864 kg Intake: IV 200 / 500 350 / 600 250 / 600 Other: Urine Color Yellow Yellow Yellow Urine Appearance Clear Clear Clear Urine Odor None None Comment unmeasured large amount of urine in commode Stool Occult Blood Positive Stool Size Small Stool Characteristics Soft Formed Bloody Emesis Description None None Voiding Methods Bedside Commode Bedside Commode Bedside Commode Data Completed and Pending Labs on day of discharge: Labs from last 24 hours 06/22/24 06/21/24 10:51 18:35 WBC 7.63 RBC 3.10 L Hgb 7.9 L 8.2 L Hct 27.3 L 28.7 L MCV 88 MCH 25.5 L MCHC 28.9 L RDW 18.0 H Plt Count 313 MPV 9.3 Immature Gran % 0.7 Neutrophils % 80.1 Lymphocytes % 7.2 Monocytes % 8.3 Eosinophils % 2.9 Basophils % 0.8 Nucleated RBC % 0.0 Absolute Neutrophils 6.12 Absolute Lymphocytes 0.55 L Absolute Monocytes 0.63 Absolute Eosinophils 0.22 Absolute Basophils 0.06 Sodium 139 Potassium 4.4 Chloride 101 Carbon Dioxide 31.6 Anion Gap 6.4 BUN 24 H Creatinine 0.9 Est GFR (CKD-EPI 2020) 67.08 Glucose 102 Calcium 8.7 PFSH All Active Problems (Updated 06/22/24 @ 14:39 by Marley Kolb APRN) Anemia (Chronic) GI bleed (Acute) Hypomagnesemia (Acute) Chronic obstructive lung disease (Chronic) h/o tobacco use, quit 2008 Discharge planning issues (Acute) DVT prophylaxis (Acute) Heart failure with preserved ejection fraction (HFpEF, >= 50%) (Acute) Hypoxia (Acute) Acute on chronic respiratory failure with hypoxia and hypercapnia (Acute) Acute and chronic respiratory failure ([id number]-ceeepap) (Acute) CAP (community acquired pneumonia) (Acute) COPD exacerbation (Acute) Cervical arthritis with myelopathy (Acute) Arthritis (Acute 02/10/13) Osteoporosis (Acute 01/14/08) Tachycardia (Chronic) GERD (gastroesophageal reflux disease) (Chronic) Medical History (Updated 06/22/24 @ 14:39 by Marley Kolb APRN) Bilateral lower extremity edema Acute respiratory failure with hypoxia HTN (hypertension) COVID-[address] Tobacco dependence due to cigarettes Quit smoking when she was 59 years old COVID-19 -associated with COPD exacerbation Parotid mass Resolved after 3 months without intervention Acute on chronic respiratory failure with hypoxia and hypercapnia Acute on chronic diastolic CHF (congestive heart failure) CAP (community acquired pneumonia) GERD (gastroesophageal reflux disease) HTN (hypertension) Surgical History Endoscopic Carpal Tunnel release (03/31/13) Left 7.2.13 Family History Mother Essential hypertension Hyperlipidemia Adopted Dementia Father Heart disease Neoplasm LUNG Lung cancer Sister No problems noted. Sister No problems noted. Brother No problems noted. Brother No problems noted. Maternal Grandfather Stroke Paternal Grandfather Heart disease Maternal Grandmother Heart disease Paternal Grandmother Stroke Son Diabetes Essential hypertension Daughter No problems noted. Social History Smoking/Tobacco Use Status: Former Tobacco Use tobacco type: cigarettes Quit Date: 09/30/13 Tobacco: How many years used: 50 Second Hand Exposure: Yes Smoking risk assessment performed?: Yes Alcohol Intake: never Drug use: Never Substance use type: does not use Counseling given: No Counseling provided: none Caregiver/Support person: No Household members: family Housing: house Communication Needs: None Do you need help understanding health information?: Never Pets and animals: Yes Pets and animals: dog(s) Sexually active: No Do you think of yourself as: straight/heterosexual Current gender identity: female What is your relationship status?: How often do you talk on the phone with friends or family?: three or more times per week How often do you get together with friends or relatives?: three or more times per week Do you belong to any clubs or organized social groups?: no Panel score (0-1 are the most socially isolated patients): 1 What type of physical activity do you participate in: none Special juan needs: No Seatbelt use: sometimes Helmet use: No Drive intox or ride w/intox interstate bus driver: No Do you feel safe at home: Yes Do you feel safe in your relationship?: Yes Time Spent with Patient Time Spent with Patient: 70-84 minutes4 Time was spent: preparing to see the patient(eg.review tests), obtaining and/or reviewing separately otained hiistory, ordering medications,tests, procedures, referring, communicating with other health direct care specialist, indepentently interpreting results, counseling the patient and care coordination
--- NOTE | 2024-06-22 18:03 | PDOC.CMDIS ---
Date of service: 06/22/24 Time of Service: 18:04 LACE Index Scoring Tool Questions: Length of Stay (in days): 3 Was the patient admitted via the E.D.?: Yes Comorbidities: Cerebrovascular Disease, Congestive Heart Failure and Chronic Pulmonary Disease E.D. Visits: 1 Answers: Total Score: 12 Risk of Readmission: High Risk Care Management Discharge Plan Reason for Hospitalization: acute on chronic respiratory failure Discharge Plan: Jackie returned home today with a resumption of HH PT, SENIOR QUALITY CONTROL TECHNICIAN, and the addition of RN. Her son drove her home via private vehicle. She will follow up with her PCP and discharge plan of care. She was happy to be going home. Patient/Family Education Needs: Review discharge instructions and limitations, discussion of self care needs including ask me three. Services Needed at Discharge: Home Health Care Services (resume HH PT, SENIOR QUALITY CONTROL TECHNICIAN, add RN) SDOH Health Related Social Needs: Health related social needs inadequate housing Health related social needs details lives with son
== END 2024-06-22 17:29 | disposition home health service (06) | DRG 193 ==
LOC: ER 09:27 → MS 15:24
PROVIDERS: Family Medicine; Nurse Practitioner Acute Care; Student in an Organized Health Care Education/Training Program; Admitting Provider Family Medicine; Emergency Provider Emergency Medicine; PCP Nurse Practitioner Family; Visit Provider Family Medicine
PROC: 0DJ68ZZ Inspection of Stomach, Via Natural or Artificial Opening Endoscopic (ICD-10-PCS; CPT 43235; principal; 2024-06-22 11:00)
DX: J18.9 Pneumonia, unspecified organism (principal); J96.21 Acute and chronic respiratory failure with hypoxia; J96.22 Acute and chronic respiratory failure with hypercapnia; K57.91 Diverticulosis of intestine, part unspecified, without perforation or abscess with bleeding; I50.30 Unspecified diastolic (congestive) heart failure; J43.9 Emphysema, unspecified; E83.42 Hypomagnesemia; Z86.73 Personal history of transient ischemic attack (TIA), and cerebral infarction without residual deficits; M81.0 Age-related osteoporosis without current pathological fracture; K21.9 Gastro-esophageal reflux disease without esophagitis; Z99.81 Dependence on supplemental oxygen; Z66 Do not resuscitate; D64.9 Anemia, unspecified; R91.8 Other nonspecific abnormal finding of lung field; K31.7 Polyp of stomach and duodenum; K29.70 Gastritis, unspecified, without bleeding; K64.8 Other hemorrhoids
CPT/HCPCS: 43239; 00123; 36415; 71275; 80048; 80053; 82805; 84145; 85027; 86850; 86900; 86901; 87493; 87637; 88305; 93005; 93306; 94640; 96365; 97161; 97530; 99222; 99231; 99285; J1650; 74019; 80162; 83735; 84484; 85014; 85018; 85025; 85610; 85730; 88361; 93010; 94664; 94667; 94668; 94760; 99223; 99232; 99239; 99291; J0295; J2405; J2470; J2704; J3475; J3490; J7620

== ENCOUNTER 2024-06-24 07:32 | Inpatient (IN) | payer OTHER, SELFPAY ==
[2024-06-24] VITALS (34 sets, daily range): BP systolic 124–158; BP diastolic 31–91; PULSE 75–92; RESP 18–33; TEMP 36.2–36.8; O2SAT 65–98
--- NOTE | 2024-06-24 07:30 | RT.EKG_ITS ---
APPROVED REPORT Exam: Resting ECG Reason for Exam: Trouble Breathing Patient Location: E HR:86 bpm ECG Measurements Heart Rate 86 AXIS ME 179 P 65 QRSd 79 QRS 93 QT 380 T 28 QTc 439 Conclusion Sinus rhythm...normal P axis, V-rate 60- 99 Right axis deviation...QRS axis ( 91,269) Anteroseptal infarct, old...Q >40mS, V1-V2 Narrow complex sinus rhythm at a rate of 86. Right axis deviation. ME and QTc within normal limits. T wave flattening in V2 and aVL. Appears similar to prior dated earlier this month. No acute inju ry pattern.
--- NOTE | 2024-06-24 07:34 | W.ED.GENAD ---
Discharge Plan Disposition Patient Disposition: Admit to [facility] Discharge Details Clinical Impression: Uvular swelling, Acute on chronic respiratory failure with hypoxia and hypercapnia Admit Date/Time: 06/24/24 11:37 Admit Provider: Otilio Greene Attending Provider: Otilio Greene Primary Care Provider: Deven Collier ED Provider: Otilio Romo Discharge Data Discharge Date/Time-TO BE ENTERED AT DEPARTURE: 06/24/24 13:53 HPI General Date/Time Provider Initiated Documentation: 06/24/24 07:34. HPI Narrative: MDM This is a hypoxic afebrile not tachycardic 73-year-old female 2 days status post endoscopy with globus sensation and dysphagia concerning for upper airway inflammation for which patient will benefit from flexible endoscopy. Patient is maintaining her saturations on 2 L of nasal cannula when she is not coughing. She quickly desaturates when she coughs into the mid 60s. She is on continued outpatient antibiotics but is not septic so I did not draw lactate nor empirically treat with antibiotics nor obtain blood cultures. Will check H&H as patient has recently been anemic secondary to GI bleed so ensure that she is not requiring a blood transfusion. No pain out of proportion to suggest necrotizing soft tissue infection. No brawny edema submentally to suggest Surinder's angina. Good range of motion in neck so I am not suspicious for retropharyngeal abscess. No nuchal rigidity to suggest meningitis. No wheezes to suggest exacerbation of reactive airway disease however will obtain a venous blood gas to assess for hypercarbia and acidemia. Equal breath sounds and no trauma so doubt pneumothorax. Patient does not appear volume overloaded so I did not obtain a proBNP as I was not suspicious for CHF. No crepitance to chest so I am not suspicious for esophageal rupture I did not feel that the patient required a CT angiogram. 8:25 AM CBC shows normocytic anemia slightly worse compared to prior. No leukocytosis. No thrombocytopenia. Given anemia will send type and screen with repeat H&H in 3 hours. No acidemia. Mild hypercarbia. Improved compared to prior. 9:38 AM Therapeutic digoxin level. Basic metabolic panel showing no LEIA. Mild hyperglycemia but no decreased bicarbonate and no anion gap?-not consistent with DKA. 9:41 AM Repeat H&H stable. Picture from scope: 9:52 AM Patient has oxygen saturations of 88% on 3 L. With any movement she quickly desaturates and becomes markedly dyspneic. Given her borderline hemoglobin and her globus sensation we will treat with steroids in the event that there is a component of inflammation. She has no signs of a rash on exam. Given her pneumonia will treat with IV ampicillin-sulbactam and reach out to the hospitalist team with request for overnight hospitalization given acute on chronic respiratory failure with hypoxia. 10:11 AM Chest x-ray read as reassuring. I reviewed the patient's case with Dr. Sapp from the ear nose and throat team. He reviewed the patient's recent CT scan I did not feel that she required a soft tissue neck CT. I was in touch with Dr. Greene from the hospitalist team who will come to assess the patient following rounds upstairs. 4:57 PM Patient hospitalized on the hospitalist service. Chronic conditions affecting the care of the patient: GERD COPD community-acquired pneumonia History obtained from an outside historian: N/A External record review: N/A Diagnostic interpretations performed by me: Per my independent interpretation chest x-ray shows: No acute cardio pulmonary process Per my independent interpretation EKG shows: Narrow complex sinus rhythm at a rate of 86. Right axis deviation. [place] and QTc within normal limits. T wave flattening in V2 and aVL. Appears similar to prior dated earlier this month. No acute injury pattern. ]Medications: N/A Social determinants of health affecting disposition: N/A Management discussed with: Hospitalist ENT Treatment/interventions considered: N/A Response to therapies provided: N/A HPI This is a 73-year-old female with a history of COPD on 2 L home oxygen and recently diagnosed community-acquired pneumonia right emergency department via private vehicle in the setting of foreign body sensation in her throat with hypoxia into the mid 60s at home. Patient is on currently 3 L nasal cannula. She says that she becomes hypoxic whenever she walks. She denies abdominal pain chest pain fevers nausea vomiting. She says that she has been n.p.o. since last night. She denies abdominal pain dysuria and frequency. She says that she has been having soft brown stools and denies any black or bloody stools. Exam General: Well-appearing in no acute distress speaking in complete sentences. Head: Normocephalic, atraumatic. Eye: Extraocular eye movements intact. No conjunctival injection. No scleral icterus. Ear, nose, mouth, throat: At the base of the uvula there is white discoloration. Normal voice, handling secretions normally. No brawny edema submentally. Neck: Trachea midline. Good range of motion in neck. Cardiovascular: Well-perfused distal extremities. Respiratory: Nonlabored respiration. Decreased breath sounds bilateral bases. No wheezes. Gastrointestinal: Nondistended abdomen. Musculoskeletal: No edema. Moving all 4 extremities spontaneously. Skin: Normal for age and race, grossly normal temperature and turgor. No acute rash. Neurologic: Alert and appropriate, no apparent acute deficits. Psychiatric: Mood and manner are appropriate. Grooming and personal hygiene are appropriate. Related Data Home Medications ?Medication ?Instructions ?Recorded ?Confirmed acetaminophen 500 mg tablet 1,000 mg PO PRN PRN 10/23/19 06/24/24 albuterol sulfate 90 mcg/actuation 2 puff inhalation Q6H PRN #8.5 06/07/22 06/24/24 aerosol inhaler grams ipratropium 0.5 mg-albuterol 3 mg 3 ml inhalation QID #180 mL 06/02/24 06/24/24 (2.5 mg base)/3 mL nebulization soln amlodipine 10 mg tablet 10 mg PO BID #180 tabs 06/08/24 06/24/24 benzonatate 100 mg capsule 100 mg PO BID PRN cough #30 caps 06/08/24 06/24/24 digoxin 125 mcg (0.125 mg) tablet 125 mcg PO QAM #90 tabs 06/08/24 06/24/24 esomeprazole magnesium 40 mg 40 mg PO DAILY #90 caps 06/08/24 06/24/24 capsule,delayed release fluticasone 250 mcg-salmeterol 50 1 inh inhalation BID #3 ea 06/08/24 06/24/24 mcg/dose blistr powdr for inhalation (Advair Diskus) furosemide 20 mg tablet See Rx Instructions .Route 06/08/24 06/24/24 .COMPLEX #135 tabs ipratropium 20 mcg-albuterol 100 1 puff inhalation QID #12 grams 06/08/24 06/24/24 mcg/actuation mist for inhalation (Combivent Respimat) montelukast 10 mg tablet 10 mg PO DAILY #90 tab-caps 06/08/24 06/24/24 amoxicillin 875 mg-potassium 1 tab PO Q12H #10 tabs 06/22/24 06/24/24 clavulanate 125 mg tablet docusate sodium 100 mg capsule 100 mg PO DAILY #30 caps 06/22/24 06/24/24 (Colace) doxycycline hyclate 100 mg capsule 100 mg PO BID #10 caps 06/22/24 06/24/24 ferrous sulfate 325 mg (65 mg 325 mg PO DAILY #30 tabs 06/22/24 06/24/24 iron) tablet (iron) guaifenesin 600 mg tablet, 600 mg PO Q12H PRN #10 tabs 06/22/24 06/24/24 extended release 12 hr (Mucinex) pantoprazole 40 mg tablet,delayed 40 mg PO BID #60 tabs 06/22/24 06/24/24 release (Protonix) Previous Rx's ?Medication ?Instructions ?Recorded albuterol sulfate 90 mcg/actuation 2 puff inhalation Q6H PRN #8.5 06/07/22 aerosol inhaler grams ipratropium 0.5 mg-albuterol 3 mg 3 ml inhalation QID #180 mL 06/02/24 (2.5 mg base)/3 mL nebulization soln amlodipine 10 mg tablet 10 mg PO BID #180 tabs 06/08/24 benzonatate 100 mg capsule 100 mg PO BID PRN cough #30 caps 06/08/24 digoxin 125 mcg (0.125 mg) tablet 125 mcg PO QAM #90 tabs 06/08/24 esomeprazole magnesium 40 mg 40 mg PO DAILY #90 caps 06/08/24 capsule,delayed release fluticasone 250 mcg-salmeterol 50 1 inh inhalation BID #3 ea 06/08/24 mcg/dose blistr powdr for inhalation (Advair Diskus) furosemide 20 mg tablet See Rx Instructions .Route 06/08/24 .COMPLEX #135 tabs ipratropium 20 mcg-albuterol 100 1 puff inhalation QID #12 grams 06/08/24 mcg/actuation mist for inhalation (Combivent Respimat) montelukast 10 mg tablet 10 mg PO DAILY #90 tab-caps 06/08/24 amoxicillin 875 mg-potassium 1 tab PO Q12H #10 tabs 06/22/24 clavulanate 125 mg tablet docusate sodium 100 mg capsule 100 mg PO DAILY #30 caps 06/22/24 (Colace) doxycycline hyclate 100 mg capsule 100 mg PO BID #10 caps 06/22/24 ferrous sulfate 325 mg (65 mg 325 mg PO DAILY #30 tabs 06/22/24 iron) tablet (iron) guaifenesin 600 mg tablet, 600 mg PO Q12H PRN #10 tabs 06/22/24 extended release 12 hr (Mucinex) pantoprazole 40 mg tablet,delayed 40 mg PO BID #60 tabs 06/22/24 release (Protonix) Allergies Allergy/AdvReac Type Severity Reaction Status Date / Time lorazepam (From Ativan) Allergy Severe Anaphylaxis Verified 06/24/24 07:48 diltiazem Allergy Intermediate LE and Verified 06/24/24 07:48 Facial Edema hydrochlorothiazide Allergy Mild rash Verified 06/24/24 07:48 Sulfa (Sulfonamide Allergy Unknown Other (See Verified 06/24/24 07:48 Antibiotics) Comment) metoprolol AdvReac Intermediate Fluid Verified 06/24/24 07:48 Retention lisinopril AdvReac Mild did not Verified 06/24/24 07:48 feel well General KAYCE: 3 Procedures Laryngoscopy Sedation/Analgesia: viscous lidocaine and other (HurriCaine spray) Technique: video laryngoscope Findings: normal larynx, normal epiglottis, no soft tissue swelling, normal vocal cords, no foreign body and normal vocal cord function Post-procedure exam: awake, alert, normal BP and normal HR Medical Decision Making Quality:SDOH Health Related Social Needs: Health related social needs inadequate housing Health related social needs details lives with son Critical Care Time Critical Care Time Critical Care Time: Yes Total Critical Care Time: 30 Attestation: Acute on chronic respiratory failure hypoxia PFSH All Active Problems (Updated 06/24/24 @ 12:18 by Otilio Greene) Sacral decubitus ulcer (Acute) Discharge planning issues (Acute) DVT prophylaxis (Acute) Acute on chronic respiratory failure with hypoxia (Acute) Uvular swelling (Acute) Anemia (Chronic) Chronic obstructive lung disease (Chronic) h/o tobacco use, quit 2008 Heart failure with preserved ejection fraction (HFpEF, >= 50%) (Acute) CAP (community acquired pneumonia) (Acute) COPD exacerbation (Acute) Cervical arthritis with myelopathy (Acute) Arthritis (Acute 02/10/13) Osteoporosis (Acute 01/14/08) Tachycardia (Chronic) GERD (gastroesophageal reflux disease) (Chronic) Medical History GI bleed Bilateral lower extremity edema Acute respiratory failure with hypoxia COVID-[address] Tobacco dependence due to cigarettes Quit smoking when she was 59 years old COVID-19 -associated with COPD exacerbation Parotid mass Resolved after 3 months without intervention Acute on chronic respiratory failure with hypoxia and hypercapnia Hypomagnesemia Acute on chronic diastolic CHF (congestive heart failure) CAP (community acquired pneumonia) HTN (hypertension) GERD (gastroesophageal reflux disease) HTN (hypertension) Surgical History Endoscopic Carpal Tunnel release (03/31/13) Left 7.2.13 Family History Mother Essential hypertension Hyperlipidemia Adopted Dementia Father Heart disease Neoplasm LUNG Lung cancer Sister No problems noted. Sister No problems noted. Brother No problems noted. Brother No problems noted. Maternal Grandfather Stroke Paternal Grandfather Heart disease Maternal Grandmother Heart disease Paternal Grandmother Stroke Son Diabetes Essential hypertension Daughter No problems noted. Social History Smoking/Tobacco Use Status: Former Tobacco Use tobacco type: cigarettes Quit Date: 09/30/13 Tobacco: How many years used: 50 Second Hand Exposure: Yes Smoking risk assessment performed?: Yes Alcohol Intake: never Drug use: Never Substance use type: does not use Counseling given: No Counseling provided: none Caregiver/Support person: No Household members: family Housing: house Communication Needs: None Do you need help understanding health information?: Never Pets and animals: Yes Pets and animals: dog(s) Sexually active: No Do you think of yourself as: straight/heterosexual Current gender identity: female What is your relationship status?: How often do you talk on the phone with friends or family?: three or more times per week How often do you get together with friends or relatives?: three or more times per week Do you belong to any clubs or organized social groups?: no Panel score (0-1 are the most socially isolated patients): 1 What type of physical activity do you participate in: none Special juan needs: No Seatbelt use: sometimes Helmet use: No Drive intox 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
--- NOTE | 2024-06-24 07:45 | DI.RAD_ITS ---
Exam(s) XR PORTABLE CHEST AP EXAM: XR PORTABLE CHEST AP CLINICAL HISTORY: Shortness of breath TECHNIQUE: 2D digital imaging was performed of the chest. One image was obtained. An AP view was ob tained. COMPARISON: CT CT CHEST PE CTA from 06/19/2024 FINDINGS: MEDIASTINUM: Normal. HEART: The heart is at the upper limits of normal in size. PULMONARY VASCULATURE: Normal. LUNGS: The previously noted right upper lobe infiltrate has resolved with mild scarring still present . No new infiltrates are seen. PLEURAL SPACE: No pleural effusion or pneumothorax. BONE:Within normal limits for the patient's age. OTHER FINDINGS:Normal. IMPRESSION: No acute pulmonary findings. DATA REPOSITORY: RADIATION DOSE DELIVERED:
[2024-06-24 08:13] LABS: BE (Venous) 7 mmol/L (-2-3); HCO3 (Venous) 33 mmol/L (23-28); O2 Sat (Venous) 78 %; TCO2 (Venous) 32 mmol/L (24-29); pCO2 (Venous) 55 mmHg (41-51); pH (Venous) 7.38 (7.31-7.41); pO2 (Venous) 43 mmHg
[2024-06-24 08:16] LABS: Abs Immature Grans 0.03 10^3/uL (0.0-0.06); Absolute Basophil Count 0.06 10^3/uL (0.0-0.2); Absolute Lymphocyte Count 0.47 10^3/uL (1.2-3.4); Absolute Monocyte Count 0.63 10^3/uL (0.1-0.8); Absolute Neutrophil Count 7.17 10^3/uL (1.2-6.7); Basophils % 0.7 %; Eosinophils % 2.3 %; HGB 7.1 g/dL (11.2-15.7); Immature Grans % 0.4 %; Lymphocytes % 5.5 %; MCH 25.4 pg (27.0-33.0); MCHC 28.4 % (32.0-36.0); MCV 89 fL (80-95); MPV 9.3 fL (8.0-11.0); Monocytes % 7.4 %; Neutrophils % 83.7 %; Platelet Count 273 10^3/uL (130-400); RDW 17.7 % (11.7-14.6); RDW-SD 57.4 fL; WBC 8.56 10^3/uL (4.4-10.8)
[2024-06-24 08:37] LABS: Anion Gap 4.8 mmol/L (3-11); BUN 23 mg/dL (7-18); CO2 32.2 mmol/L (21.0-32.0); CREATININE 0.8 mg/dL (0.55-1.02); Calcium 8.8 mg/dL (8.5-10.1); Chloride 101 mmol/L (98-107); Digoxin 0.94 ng/mL (0.90-2.00); Estimated GFR 77.27 (mL/min/1.73m2); Glucose 119 mg/dL (74-106); Potassium 4.6 mmol/L (3.5-5.1); Sodium 138 mmol/L (136-145); Troponin I 16 ng/L (<or=51)
[2024-06-24 09:29] LABS: COVID-19 PCR Negative (Negative); Influenza A PCR Negative (Negative); Influenza B PCR Negative (Negative); RSV PCR Negative (Negative)
[2024-06-24 09:37] LABS: HCT 25.7 % (36.0-46.0); HGB 7.3 g/dL (11.2-15.7)
[2024-06-24 09:43] LABS: Source Nasopharynx
[2024-06-24] MEDS: Benzocaine 20% 60 ML CAN (10:30)
[2024-06-24] MEDS: AMPICILLIN/SULBACTAM 3 GM in Normal Saline 100 ML IVPB (10:30)
[2024-06-24] MEDS: Dexamethasone 10 MG/ML VIAL IVP (10:31)
[2024-06-24] MEDS: Lidocaine 2% Jelly 11 ML SYR UR (10:31)
--- NOTE | 2024-06-24 10:31 | NUR.NOTE ---
Nursing Note: patient stood 1min while being weighed, spo2 decreased to 78%, patient took 5mins to recover O2 levels to 90% 3l o2 NC
--- NOTE | 2024-06-24 11:00 | DI.CT_ITS ---
Exam(s) CT CHEST PE CTA EXAM: CT CHEST PE CTA CLINICAL HISTORY: hypoxia. TECHNIQUE: Imaging Protocol: Axial CT angiography was performed with multi-slice acquisition and mu lti-planar and/or 3D reconstructions. CONTRAST MATERIAL: Intravenous: Omnipaque 350 contrast volume:100 mL COMPARISON: CT CT CHEST PE CTA from 06/19/[address] NECK W from 06/24/2024 FINDINGS: Tracheobronchial tree: Patent where visualized. No bronchiectasis. Pulmonary parenchyma: There are persistent opacity seen in the right upper lobe and the right lower l obe which all appears stable. There are 3 areas of nodularity seen in the posterior right lower lobe which are unchanged. There is no change in appearance of the left lung. No new pulmonary infiltrat es are seen. Emphysematous changes are seen in the lungs. Pulmonary Arteries: No evidence of filling defect to suggest pulmonary emboli. Mediastinum and Amberly: Stable enlarged mediastinal lymph nodes. The esophagus is unremarkable. Visualized thyroid gland: Unremarkable. Pleura: No effusion or pneumothorax. Heart: Mild cardiomegaly. Coronary artery calcifications are present. No pericardial effusion. Aorta: Thoracic aorta non-dilated. No evidence of dissection. Atherosclerotic calcifications are pres ent. Upper abdomen: Unremarkable. Soft tissues: Unremarkable. Bones: Within normal limits for the patient's age. IMPRESSION: 1. No evidence of pulmonary embolism, thoracic aortic dissection or aneurysm. 2. Stable pulmonary findings since 06/19/2024. No new infiltrates are seen. 3. Stable enlarged mediastinal lymph nodes. RADIATION DOSE DELIVERED: 329.22mGy.cm Total DLP DATA REPOSITORY: All CT scans at this facility are submitted to the National Radiology Data Registry (NRDR) Dose Index Registry (DIR) with the [employer] ([employer]). RADIATION OPTIMIZATION: All CT scans at this facility use at least one of these dose optimization te chniques: automated exposure control; mA and/or kV adjustment per patient size (includes targeted exa ms where dose is matched to clinical indication); or iterative reconstruction.
--- NOTE | 2024-06-24 11:00 | DI.CT_ITS ---
Exam(s) CT NECK W EXAM: CT NECK W CLINICAL HISTORY: globus sensation. TECHNIQUE: Imaging Protocol: Axial computed tomography images with coronal and sagittal reformatted images were created and reviewed. CONTRAST MATERIAL: Intravenous: Omnipaque 350 Contrast volume:50mL COMPARISON: CT CT CHEST PE CTA from 06/19/2024 FINDINGS: The examination is limited due to patient motion artifact. Orbits and orbital soft tissues: Within normal limits. Visualized paranasal sinuses: Within normal limits. Nasopharynx: Within normal limits. Oropharynx: Within normal limits. Hypopharynx: Within normal limits. Larynx: Within normal limits. Retropharyngeal space: Within normal limits. Parotids/submandibular: Within normal limits. Thyroid gland: Within normal limits. Lymphadenopathy: There is scattered lymph nodes seen along the level one to level three all measurin g less than 8 mm in short axis diameter which are physiologic in nature. Trachea: Within normal limits. Lung apices: Please see the CT scan of the chest report for complete details. Bones: Within normal limits for the patient's age. Carotids/Jugular: Within normal limits. Soft tissues: Within normal limits. IMPRESSION: No acute abnormality. RADIATION DOSE DELIVERED: 329.22mGy.cm Total DLP 329.22mGy.cm Total DLP DATA REPOSITORY: All CT scans at this facility are submitted to the National Radiology Data Registry (NRDR) Dose Index Registry (DIR) with the [employer] (ACR). RADIATION OPTIMIZATION: All CT scans at this facility use at least one of these dose optimization te chniques: automated exposure control; mA and/or kV adjustment per patient size (includes targeted exa ms where dose is matched to clinical indication); or iterative reconstruction.
--- NOTE | 2024-06-24 11:49 | W.PM.HP.N ---
Date of service: 06/24/24 Time of Service: 11:49 Assessment and Plan Assessment and plan (1) Acute on chronic respiratory failure with hypoxia: Status: Acute Assessment and plan: Worsening hypoxia with unclear trigger. She doesn't seem to have another acute pnuemonia. She is not clearly wheezy, though I do think prudent to continue trement for COPD exacerbation. She is at risk for PE, CTA ordered after d/w ED clinician. She does not appear to be in active CHF. She has had these nodules/infiltrates that have not been worked up, however reviewing the CTs it doesn't look like these have progressed c/w cancer. Repeat CT will give us more information Anemia may be contributing to symptoms. She does use BiPAP at night, continue supplemental, consider high flow for a time. (2) COPD exacerbation: Status: Acute Assessment and plan: Got dexamethasone in ED, continue prednisone, antibiotics, nebs. (3) Uvular swelling: Status: Acute Assessment and plan: This looks like it may be thrush, she is at risk with inhaled steroid. It started after endoscopy, could also be related to trauma. Case reviewed with Senait from ENT in the ED. Will try nystatin. Pictures and videos of larynx reviewed with Dr. Villar, no signs of obstruction or swelling around the cords. CT neck will give us more information as well. (4) Anemia: Status: Chronic Assessment and plan: Associated with recent GI bleed. Severe but not clearly dropping. Still a little blood mixed in stool yesterday. Will follow and transfuse if <7% On iron, check to see how deficient she is, IV iron may help avoid additional transfusions (5) HTN (hypertension): Assessment and plan: on amlodipine high dose. This is likely causing LE edema, but I assume she ended up on this after poor response to thizide, DOE inh, metoprolol. No change for now. (6) Heart failure with preserved ejection fraction (HFpEF, >= 50%): Status: Acute Assessment and plan: I don't think she is frankly fluid overloaded or in active CHF. (7) DVT prophylaxis: Status: Acute Assessment and plan: SCDs/TEDs, no heparin due to GI bleed. (8) Discharge planning issues: Status: Acute Assessment and plan: I did talk with her about palliative care and even hospice, though the lung masses don't seem to be progressing, her respiratory failure does. She is open to discussion now. (9) Sacral decubitus ulcer: Status: Acute Assessment and plan: Healing per history. Continue wound care. History of Present Illness History of Present Illness Chief Complaint: something in throat, short of breath Narrative: 73 yo F with COPD, HFpEF, h/o CVA, and history of lung infiltrate declining biopsy/evaluation who was admitted 05/29-06/03 for community acquired pneumonia and sent home with home oxygen, and 06/19-06/22 for GI bleed who presented to the emergency room this morning with feeling of something stuck in her throat associated with worsening of her chronic shortness of breath. This started after her endoscopy at last admission with a sore throat. After going home, the sore throat turned into feeling like something was stuck in the back of her throat that she could grab and pull out. She did not have sputum or cough up blood. She did start feeling more short of breath the day before admission. She continued to take the antibiotics given at last admission without interruption. She has not had fevers or chills. No runny nose, congestions, ear pain, or changes in smell. Review of Systems All systems reviewed & are unremarkable except as noted in HPI and below Cardiovascular Cardiovascular: Reports leg edema (chronic) Gastrointestinal Gastrointestinal: Reports hematochezia (small amount mixed in stool, improving from last admission) Integumentary/Breasts Skin/Breast: Reports skin ulcer (on sacrum, healing per home health) PFSH All Active Problems Sacral decubitus ulcer (Acute) Discharge planning issues (Acute) DVT prophylaxis (Acute) Acute on chronic respiratory failure with hypoxia (Acute) Uvular swelling (Acute) Anemia (Chronic) Heart failure with preserved ejection fraction (HFpEF, >= 50%) (Acute) CAP (community acquired pneumonia) (Acute) COPD exacerbation (Acute) Cervical arthritis with myelopathy (Acute) Arthritis (Acute 02/10/13) Chronic obstructive lung disease (Chronic) h/o tobacco use, quit 2008 Osteoporosis (Acute 01/14/08) Tachycardia (Chronic) GERD (gastroesophageal reflux disease) (Chronic) Medical History GI bleed Bilateral lower extremity edema Acute respiratory failure with hypoxia COVID-[address] Tobacco dependence due to cigarettes Quit smoking when she was 59 years old COVID-19 -associated with COPD exacerbation Parotid mass Resolved after 3 months without intervention Acute on chronic respiratory failure with hypoxia and hypercapnia Hypomagnesemia Acute on chronic diastolic CHF (congestive heart failure) CAP (community acquired pneumonia) HTN (hypertension) GERD (gastroesophageal reflux disease) HTN (hypertension) Surgical History Endoscopic Carpal Tunnel release (03/31/13) Left 7.2.13 Family History Mother Essential hypertension Hyperlipidemia Adopted Dementia Father Heart disease Neoplasm LUNG Lung cancer Sister No problems noted. Sister No problems noted. Brother No problems noted. Brother No problems noted. Maternal Grandfather Stroke Paternal Grandfather Heart disease Maternal Grandmother Heart disease Paternal Grandmother Stroke Son Diabetes Essential hypertension Daughter No problems noted. Social History (Updated 06/24/24 @ 19:40 by Otilio Greene) Smoking/Tobacco Use Status: Former Tobacco Use tobacco type: cigarettes Quit Date: 09/30/13 Tobacco: How many years used: 50 Second Hand Exposure: Yes Smoking risk assessment performed?: Yes Alcohol Intake: never Drug use: Never Substance use type: does not use Counseling given: No Counseling provided: none Caregiver/Support person: No Household members: family Housing: house Communication Needs: None Do you need help understanding health information?: Never Pets and animals: Yes Pets and animals: dog(s) Sexually active: No Do you think of yourself as: straight/heterosexual Current gender identity: female What is your relationship status?: How often do you talk on the phone with friends or family?: three or more times per week How often do you get together with friends or relatives?: three or more times per week Do you belong to any clubs or organized social groups?: no Panel score (0-1 are the most socially isolated patients): 1 What type of physical activity do you participate in: none Special juan needs: No Seatbelt use: sometimes Helmet use: No Drive intox or ride w/intox hearse driver: No Do you feel safe at home: Yes Do you feel safe in your relationship?: Yes Additional Social history: Lives with Son on [place] [employer] Meds Allergies and Home Medications Allergies Allergy/AdvReac Type Severity Reaction Status Date / Time lorazepam (From Ativan) Allergy Severe Anaphylaxis Verified 06/24/24 07:48 diltiazem Allergy Intermediate LE and Verified 06/24/24 07:48 Facial Edema hydrochlorothiazide Allergy Mild rash Verified 06/24/24 07:48 Sulfa (Sulfonamide Allergy Unknown Other (See Verified 06/24/24 07:48 Antibiotics) Comment) metoprolol AdvReac Intermediate Fluid Verified 06/24/24 07:48 Retention lisinopril AdvReac Mild did not Verified 06/24/24 07:48 feel well Home Medications ?Medication ?Instructions ?Recorded ?Confirmed ?Type acetaminophen 500 mg tablet 1,000 mg PO PRN PRN 10/23/19 06/24/24 History albuterol sulfate 90 mcg/actuation 2 puff inhalation Q6H PRN #8.5 06/07/22 06/24/24 Rx aerosol inhaler grams ipratropium 0.5 mg-albuterol 3 mg 3 ml inhalation QID #180 mL 06/02/24 06/24/24 Rx (2.5 mg base)/3 mL nebulization soln amlodipine 10 mg tablet 10 mg PO BID #180 tabs 06/08/24 06/24/24 Rx benzonatate 100 mg capsule 100 mg PO BID PRN cough #30 caps 06/08/24 06/24/24 Rx digoxin 125 mcg (0.125 mg) tablet 125 mcg PO QAM #90 tabs 06/08/24 06/24/24 Rx esomeprazole magnesium 40 mg 40 mg PO DAILY #90 caps 06/08/24 06/24/24 Rx capsule,delayed release fluticasone 250 mcg-salmeterol 50 1 inh inhalation BID #3 ea 06/08/24 06/24/24 Rx mcg/dose blistr powdr for inhalation (Advair Diskus) furosemide 20 mg tablet See Rx Instructions .Route 06/08/24 06/24/24 Rx .COMPLEX #135 tabs ipratropium 20 mcg-albuterol 100 1 puff inhalation QID #12 grams 06/08/24 06/24/24 Rx mcg/actuation mist for inhalation (Combivent Respimat) montelukast 10 mg tablet 10 mg PO DAILY #90 tab-caps 06/08/24 06/24/24 Rx amoxicillin 875 mg-potassium 1 tab PO Q12H #10 tabs 06/22/24 06/24/24 Rx clavulanate 125 mg tablet docusate sodium 100 mg capsule 100 mg PO DAILY #30 caps 06/22/24 06/24/24 Rx (Colace) doxycycline hyclate 100 mg capsule 100 mg PO BID #10 caps 06/22/24 06/24/24 Rx ferrous sulfate 325 mg (65 mg 325 mg PO DAILY #30 tabs 06/22/24 06/24/24 Rx iron) tablet (iron) guaifenesin 600 mg tablet, 600 mg PO Q12H PRN #10 tabs 06/22/24 06/24/24 Rx extended release 12 hr (Mucinex) pantoprazole 40 mg tablet,delayed 40 mg PO BID #60 tabs 06/22/24 06/24/24 Rx release (Protonix) Exam Narrative Exam Narrative: GEN: Alert and oriented x 4, pleasant and cooperative, gives linear history. Voice is raspy, speaks in short sentences, NRB on. No acute distress at rest. HEENT: Head atraumatic. Conjunctiva clear, no icterus. PEERL, EOMI. no rhinorrhea. MMM, OP benign except white patch on distal uvula. Neck is supple with no masses or lymphadenopathy, trachea midline LUNGS: Diffusely deminished but moveing air bilaterrally. No rales or wheezes. Mild tachypnea/increased respiratory effort. CV: RRR with no murmurs, gallops, or rubs. No elevation JVP ABD: active bowel sounds, soft, nontender and nondistended. No masses. EXT: no cyanosis, clubbing. Warm. 1+ royer edema to shins MSK: No joint redness or swelling, hand joints with hypertrophy/deformity most notable in DIPs NEURO: CN 2-12 grossly intact. Normal movement of 4 extremities. Normal speech and coordination. No tremor SKIN: No rashes or open wounds. Sacral wound dressed. bruises on back of hands. PSYCH: normal mood and affect, normal thought process. Results Labs 06/24/24 09:26 06/24/24 08:05 Labs: Laboratory Results - last 24 hr 06/24/24 06/24/24 06/24/24 08:05 08:05 08:25 WBC 8.56 RBC 2.80 L Hgb 7.1 L Hct 25.0 L MCV 89 MCH 25.4 L MCHC 28.4 L RDW 17.7 H Plt Count 273 MPV 9.3 Immature Gran % 0.4 Neutrophils % 83.7 Lymphocytes % 5.5 Monocytes % 7.4 Eosinophils % 2.3 Basophils % 0.7 Nucleated RBC % 0.0 Absolute Neutrophils 7.17 H Absolute Lymphocytes 0.47 L Absolute Monocytes 0.63 Absolute Eosinophils 0.20 Absolute Basophils 0.06 VBG pH 7.38 VBG pCO2 55 H VBG pO2 43 VBG HCO3 33 H VBG Total CO2 32 H VBG O2 Saturation 78 VBG Base Excess 7 H Sodium 138 Potassium 4.6 Chloride 101 Carbon Dioxide 32.2 H Anion Gap 4.8 BUN 23 H Creatinine 0.8 Est GFR (CKD-EPI 2020) 77.27 Glucose 119 H Calcium 8.8 Troponin I 16 Cancelled Digoxin 0.94 COVID-19 Source Nasopharynx SARS-CoV-2 (PCR) Negative Influenza Type A (PCR) Negative Influenza Type B (PCR) Negative RSV (PCR) Negative ABO/Rh Antibody Screen 06/24/24 06/24/24 06/24/24 08:50 09:26 10:11 WBC RBC Hgb 7.3 L Hct 25.7 L MCV MCH MCHC RDW Plt Count MPV Immature Gran % Neutrophils % Lymphocytes % Monocytes % Eosinophils % Basophils % Nucleated RBC % Absolute Neutrophils Absolute Lymphocytes Absolute Monocytes Absolute Eosinophils Absolute Basophils VBG pH VBG pCO2 VBG pO2 VBG HCO3 VBG Total CO2 VBG O2 Saturation VBG Base Excess Sodium Potassium Chloride Carbon Dioxide Anion Gap BUN Creatinine Est GFR (CKD-EPI 2020) Glucose Calcium Troponin I Cancelled Digoxin COVID-19 Source SARS-CoV-2 (PCR) Influenza Type A (PCR) Influenza Type B (PCR) RSV (PCR) ABO/Rh A Positive Antibody Screen NEGATIVE 06/24/24 10:50 WBC RBC Hgb Hct MCV MCH MCHC RDW Plt Count MPV Immature Gran % Neutrophils % Lymphocytes % Monocytes % Eosinophils % Basophils % Nucleated RBC % Absolute Neutrophils Absolute Lymphocytes Absolute Monocytes Absolute Eosinophils Absolute Basophils VBG pH VBG pCO2 VBG pO2 VBG HCO3 VBG Total CO2 VBG O2 Saturation VBG Base Excess Sodium Potassium Chloride Carbon Dioxide Anion Gap BUN Creatinine Est GFR (CKD-EPI 2020) Glucose Calcium Troponin I Cancelled Digoxin COVID-19 Source SARS-CoV-2 (PCR) Influenza Type A (PCR) Influenza Type B (PCR) RSV (PCR) ABO/Rh Antibody Screen Last Vital Signs Temp 36.2 C L 06/24/24 07:42 Pulse 81 06/24/24 09:31 Resp 22 06/24/24 09:33 BP 132/50 L 06/24/24 09:31 Pulse Ox 83 L 06/24/24 09:31 Time Spent Time spent with Patient: 55-74 minutes Time was spent: preparing to see the patient(eg.review tests), obtaining and/or reviewing separately otained hiistory, ordering medications,tests, procedures, referring, communicating with other health healthcare administration intern, indepentently interpreting results, counseling the patient and care coordination
[2024-06-24] MEDS: Omnipaque 350 MG/ML 100 ML BTL 150 ML IJ (12:07)
[2024-06-24] MEDS: Albuterol/Ipratropium 3 ML UPD VIAL (12:18)
--- NOTE | 2024-06-24 13:20 | W.PC.ACHO ---
Registration Status: Primary Language: Preferred Language: ED Information & Data Chief Complaint SOB 06/24/24 07:50 Chief Complaint SOB 06/24/24 07:42 Triage Note Increased SOB started 06/24/24 07:42 yesterday 65% on 3l Home O2, Medical / Surgical History (Last Reviewed 06/24/24 @ 12:18 by Otilio Greene) GI bleed Hypomagnesemia Bilateral lower extremity edema Acute respiratory failure with hypoxia HTN (hypertension) COVID-[address] Tobacco dependence due to cigarettes COVID-19 Parotid mass Acute on chronic respiratory failure with hypoxia and hypercapnia Acute on chronic diastolic CHF (congestive heart failure) CAP (community acquired pneumonia) GERD (gastroesophageal reflux disease) HTN (hypertension) (Last Reviewed 06/24/24 @ 12:18 by Otilio Greene) Endoscopic Carpal Tunnel release (03/31/13) Most Recent Vital Signs Temperature 36.2 C L 06/24/24 07:42 Pulse 84 06/24/24 11:31 Pulse 87 06/24/24 13:00 Respiratory Rate 27 H 06/24/24 13:00 Respiratory Effort Short of Breath 06/24/24 09:33 Respiratory Depth Shallow 06/24/24 09:33 Respiratory Pattern Normal 06/24/24 09:33 Blood Pressure 158/49 H 06/24/24 11:31 Blood Pressure Mean 82 06/24/24 11:31 Pulse Oximetry 93 06/24/24 13:00 Oxygen Delivery Method OxyMask 06/24/24 12:18 Oxygen Flow Rate 3 06/24/24 12:18 Allergies lorazepam (From Ativan) Allergy (Severe, Verified 06/24/24 07:48) Anaphylaxis diltiazem Allergy (Intermediate, Verified 06/24/24 07:48) LE and Facial Edema hydrochlorothiazide Allergy (Mild, Verified 06/24/24 07:48) rash Sulfa (Sulfonamide Antibiotics) Allergy (Unknown, Verified 06/24/24 07:48) Other (See Comment) metoprolol Adverse Reaction (Intermediate, Verified 06/24/24 07:48) Fluid Retention lisinopril Adverse Reaction (Mild, Verified 06/24/24 07:48) did not feel well Active Medications Generic Name Dose Route Start Last Admin Trade Name Freq PRN Reason Stop Dose Admin Albuterol/Ipratropium 3 ml 06/24/24 12:00 06/24/24 12:18 Albuterol/Ipratropium 3 Ml Upd Vial IH Not Given QID WALTER Iohexol 150 ml 06/24/24 12:15 06/24/24 12:07 Omnipaque 350 Mg/Ml 100 Ml Btl IJ 07/24/24 23:59 150 ml DIRECTED WALTER Administration IV IV Catheter Type [Right Peripheral IV Forearm] IV Catheter Gauge [Right 18 Forearm] Diet Orders Category Date Time Status Regular/Normal [DIET] Nutrition 06/24/24 Lunch Active Diagnostics 06/24/24 06/24/24 06/24/24 Range/Units 10:50 10:11 09:26 WBC (4.4-10.8) 10^3/uL RBC (3.93-5.22) 10^6/uL Hgb 7.3 L (11.2-15.7) g/dL Hct 25.7 L (36.0-46.0) % MCV (80-95) fL MCH (27.0-33.0) pg MCHC (32.0-36.0) % RDW (11.7-14.6) % Plt Count (130-400) 10^3/uL MPV (8.0-11.0) fL Immature Gran % % Neutrophils % % Lymphocytes % % Monocytes % % Eosinophils % % Basophils % % Nucleated RBC % (0.0-0.3) % Absolute Neutrophils (1.2-6.7) 10^3/uL Absolute Lymphocytes (1.2-3.4) 10^3/uL Absolute Monocytes (0.1-0.8) 10^3/uL Absolute Eosinophils (0.0-0.7) 10^3/uL Absolute Basophils (0.0-0.2) 10^3/uL VBG pH (7.31-7.41) VBG pCO2 (41-51) mmHg VBG pO2 mmHg VBG HCO3 (23-28) mmol/L VBG Total CO2 (24-29) mmol/L VBG O2 Saturation % VBG Base Excess (-2-3) mmol/L Sodium (136-145) mmol/L Potassium (3.5-5.1) mmol/L Chloride (98-107) mmol/L Carbon Dioxide (21.0-32.0) mmol/L Anion Gap (3-11) mmol/L BUN (7-18) mg/dL Creatinine (0.55-1.02) mg/dL Est GFR (CKD-EPI 2020) (mL/min/1.73m2) Glucose (74-106) mg/dL Calcium (8.5-10.1) mg/dL Troponin I Cancelled (<or=51) ng/L Digoxin (0.90-2.00) ng/mL COVID-19 Source SARS-CoV-2 (PCR) (Negative) Influenza Type A (PCR) (Negative) Influenza Type B (PCR) (Negative) RSV (PCR) (Negative) ABO/Rh A Positive Antibody Screen NEGATIVE 06/24/24 06/24/24 06/24/24 Range/Units 08:50 08:25 08:05 WBC (4.4-10.8) 10^3/uL RBC (3.93-5.22) 10^6/uL Hgb (11.2-15.7) g/dL Hct (36.0-46.0) % MCV (80-95) fL MCH (27.0-33.0) pg MCHC (32.0-36.0) % RDW (11.7-14.6) % Plt Count (130-400) 10^3/uL MPV (8.0-11.0) fL Immature Gran % % Neutrophils % % Lymphocytes % % Monocytes % % Eosinophils % % Basophils % % Nucleated RBC % (0.0-0.3) % Absolute Neutrophils (1.2-6.7) 10^3/uL Absolute Lymphocytes (1.2-3.4) 10^3/uL Absolute Monocytes (0.1-0.8) 10^3/uL Absolute Eosinophils (0.0-0.7) 10^3/uL Absolute Basophils (0.0-0.2) 10^3/uL VBG pH (7.31-7.41) VBG pCO2 (41-51) mmHg VBG pO2 mmHg VBG HCO3 (23-28) mmol/L VBG Total CO2 (24-29) mmol/L VBG O2 Saturation % VBG Base Excess (-2-3) mmol/L Sodium (136-145) mmol/L Potassium (3.5-5.1) mmol/L Chloride (98-107) mmol/L Carbon Dioxide (21.0-32.0) mmol/L Anion Gap (3-11) mmol/L BUN (7-18) mg/dL Creatinine (0.55-1.02) mg/dL Est GFR (CKD-EPI 2020) (mL/min/1.73m2) Glucose (74-106) mg/dL Calcium (8.5-10.1) mg/dL Troponin I Cancelled Cancelled (<or=51) ng/L Digoxin 0.94 (0.90-2.00) ng/mL COVID-19 Source Nasopharynx SARS-CoV-2 (PCR) Negative (Negative) Influenza Type A (PCR) Negative (Negative) Influenza Type B (PCR) Negative (Negative) RSV (PCR) Negative (Negative) ABO/Rh Antibody Screen 06/24/24 Range/Units 08:05 WBC 8.56 (4.4-10.8) 10^3/uL RBC 2.80 L (3.93-5.22) 10^6/uL Hgb 7.1 L (11.2-15.7) g/dL Hct 25.0 L (36.0-46.0) % MCV 89 (80-95) fL MCH 25.4 L (27.0-33.0) pg MCHC 28.4 L (32.0-36.0) % RDW 17.7 H (11.7-14.6) % Plt Count 273 (130-400) 10^3/uL MPV 9.3 (8.0-11.0) fL Immature Gran % 0.4 % Neutrophils % 83.7 % Lymphocytes % 5.5 % Monocytes % 7.4 % Eosinophils % 2.3 % Basophils % 0.7 % Nucleated RBC % 0.0 (0.0-0.3) % Absolute Neutrophils 7.17 H (1.2-6.7) 10^3/uL Absolute Lymphocytes 0.47 L (1.2-3.4) 10^3/uL Absolute Monocytes 0.63 (0.1-0.8) 10^3/uL Absolute Eosinophils 0.20 (0.0-0.7) 10^3/uL Absolute Basophils 0.06 (0.0-0.2) 10^3/uL VBG pH 7.38 (7.31-7.41) VBG pCO2 55 H (41-51) mmHg VBG pO2 43 mmHg VBG HCO3 33 H (23-28) mmol/L VBG Total CO2 32 H (24-29) mmol/L VBG O2 Saturation 78 % VBG Base Excess 7 H (-2-3) mmol/L Sodium 138 (136-145) mmol/L Potassium 4.6 (3.5-5.1) mmol/L Chloride 101 (98-107) mmol/L Carbon Dioxide 32.2 H (21.0-32.0) mmol/L Anion Gap 4.8 (3-11) mmol/L BUN 23 H (7-18) mg/dL Creatinine 0.8 (0.55-1.02) mg/dL Est GFR (CKD-EPI 2020) 77.27 (mL/min/1.73m2) Glucose 119 H (74-106) mg/dL Calcium 8.8 (8.5-10.1) mg/dL Troponin I 16 (<or=51) ng/L Digoxin (0.90-2.00) ng/mL COVID-19 Source SARS-CoV-2 (PCR) (Negative) Influenza Type A (PCR) (Negative) Influenza Type B (PCR) (Negative) RSV (PCR) (Negative) ABO/Rh Antibody Screen Intake and Output - 24 Hour Total 06/24/24 07:32 thru 06/24/24 07:42 Weight 146.4 kg Falls Risk Assessment History of Falls Previous History 06/24/24 13:17 Fall Total Score 15 06/24/24 13:17 Level of Risk Standard/Low Risk 06/24/24 13:17 Problems (Last Reviewed 06/24/24 @ 12:18 by Otilio Greene) Sacral decubitus ulcer (Acute) Discharge planning issues (Acute) DVT prophylaxis (Acute) Acute on chronic respiratory failure with hypoxia (Acute) Uvular swelling (Acute) Anemia (Chronic) Heart failure with preserved ejection fraction (HFpEF, >= 50%) (Acute) COPD exacerbation (Acute) Notes 06/24/24 10:31 Nursing Notes by Brit Chaudhary Nursing Note: patient stood 1min while being weighed, spo2 decreased to 78%, patient took 5mins to recover O2 levels to 90% 3l o2 NC Initialized on 06/24/24 10:31 - END OF NOTE v v v v v v v v v Sending and/or Receiving Nurses: Please use comment section below to note any information pertinent to the patient hand-off not included above. Information / Comments: Report received from SANTIAGO Perea from ED at 1:17 pm. Report received from:
[2024-06-24] MEDS: Acetaminophen 500 MG TAB 1000 MG PO (16:33)
[2024-06-24] MEDS: Nystatin 500000 UNITS/5 ML SUSP 5ML CUP PO ×2 (16:54→20:28)
[2024-06-24] MEDS: Furosemide 20 MG TAB 40 MG PO (16:55)
[2024-06-24] MEDS: Montelukast 10 MG TAB PO (16:55)
[2024-06-24] MEDS: Digoxin 0.125 MG TAB PO (16:56)
[2024-06-24] MEDS: guaiFENesin 600 MG TABCR PO (16:59)
[2024-06-24] MEDS: Pantoprazole 40 MG TABCR PO (20:27)
[2024-06-24] MEDS: Amoxicillin 875/Clav. 125 TAB PO (20:27)
[2024-06-24] MEDS: Doxycycline Hyclate 100 MG CAP PO (20:27)
[2024-06-24] MEDS: amLODIPine 10 MG TAB PO (20:28)
[2024-06-24] MEDS: Ipratropium/Albuterol 4 GM 120 PUFF INH IH (22:08)
[2024-06-24] MEDS: Albuterol HFA 8 GM 60 PUFF INH IH (22:25)
[2024-06-25] MEDS: Acetaminophen 500 MG TAB 1000 MG PO ×2 (01:53→13:13)
[2024-06-25 07:14] LABS: HCT 24.5 % (36.0-46.0); MCH 25.4 pg (27.0-33.0); MCHC 28.6 % (32.0-36.0); MCV 89 fL (80-95); MPV 9.9 fL (8.0-11.0); Platelet Count 336 10^3/uL (130-400); RBC 2.76 10^6/uL (3.93-5.22); RDW 17.9 % (11.7-14.6); RDW-SD 57.1 fL; WBC 5.98 10^3/uL (4.4-10.8)
[2024-06-25 07:26] LABS: Iron 11 ug/dL (50-170); Total Iron Binding Capacity 398 ug/dL (250-450); Transferrin Sat 3 % (15-50)
[2024-06-25 07:49] VITALS: BP 116/52; PULSE 89; RESP 17; TEMP 36.7; O2SAT 93
[2024-06-25] MEDS: Nystatin 500000 UNITS/5 ML SUSP 5ML CUP PO ×3 (07:53→21:44)
[2024-06-25] MEDS: predniSONE 20 MG TAB 40 MG PO (07:55)
[2024-06-25] MEDS: Pantoprazole 40 MG TABCR PO ×2 (07:56→21:45)
[2024-06-25] MEDS: Ferrous Sulfate 325 MG TAB PO (07:56)
[2024-06-25] MEDS: Docusate Sodium 100 MG CAP PO (07:56)
[2024-06-25] MEDS: Doxycycline Hyclate 100 MG CAP PO ×2 (07:56→21:45)
[2024-06-25] MEDS: amLODIPine 10 MG TAB PO ×2 (07:56→21:44)
[2024-06-25] MEDS: Montelukast 10 MG TAB PO (08:02)
[2024-06-25] MEDS: Furosemide 20 MG TAB 40 MG PO (08:02)
[2024-06-25] MEDS: Amoxicillin 875/Clav. 125 TAB PO ×2 (08:02→21:45)
[2024-06-25 08:10] VITALS: PULSE 89
[2024-06-25] MEDS: Digoxin 0.125 MG TAB PO (08:10)
[2024-06-25] MEDS: Ipratropium/Albuterol 4 GM 120 PUFF INH IH ×4 (08:21→19:29)
[2024-06-25] MEDS: Tiotropium/Olodaterol 10 PUFF INHALER 2 PUFF IH (08:22)
[2024-06-25] MEDS: IRON SUCROSE COMPLEX 200 MG in Normal Saline 100 ML 400 MG IVPB (08:38)
--- NOTE | 2024-06-25 14:08 | W.PALLCONSUL ---
Date of service: 06/25/24 Time of Service: 14:08 History of Present Illness Narrative: Palliative was consulted to see Jackie due to worsening respiratory failure, COPD and lung nodules (stable). She has been seen by palliative during hospitalizations in the past but she has not been seen for outpatient follow up. She was admitted yesterday with hypoxia. She was recently discharged (06/22) after being admitted for hypoxia in setting of PNA. She was also noted to have GI bleeding during that admission. She remains anemic, her hgb is 7 today. She had an iron infusion. She is OK with getting blood transfusion. She is open to having colonoscopy to determine the cause of bleeding. She does not want to go to [facility] but would if her team felt that it was medically necessary. CODE Status: DNR/DNI- previously established. Has COLST In regard to the lung nodules, she previously felt that if she is found to have cancer- she would never want treatment. Her of small cell lung cancer and her dad had cancer and after 1 round of chemo. Today she states that she would want Bx if there was a question of cancer. She would want the diagnosis and she would consider treatment. She does not think she would want chemo but would consider other options. At baseline, she is SOB with talking and activity. She has to take breaks to rest after walking a short distance. She has a walker and cane but does not always use them, she walks around the house. She has to hold onto something if she is standing for more than 2-3 minutes. She spends a lot of time in her recliner. She has a pressure ulcer on her coccyx. She has lost some weight but states it was on purpose. She is usually around 140#, she got up around 180# and has lost about 35# over the last few years because it is easier for her to breathe when her weight is down. She has tele-monitoring via . She is working with [employer], they are helping her with insurance. Her current insurance, well care will be leaving the state of [place] so she will need new insurance (cannot be done before 06/30/24). She is open to follow up with palliative care but prefers a home visit. She lives with her son, Vinh. Vinh helps her with whatever she needs. He drives her where she needs to go. She does her own personal care, she has a shower chair. Assessment and Plan Assessment and plan (1) Acute on chronic respiratory failure with hypoxia: Status: Resolved Assessment and plan: She was admitted for worsening hypoxia associated with COPD exacerbation. She has had these nodules/infiltrates that have not been worked up, however reviewing the CTs it doesn't look like these have progressed c/w cancer. She has outpatient pulmonology follow up. She was recently admitted with similar presentation. (2) COPD exacerbation: Status: Acute Assessment and plan: As above (3) Uvular swelling: Status: Acute Assessment and plan: Dr. Sapp to f/u outpatient. (4) Anemia: Status: Chronic Assessment and plan: Associated with recent GI bleed. Severe but appears stable. She received IV iron today. Will follow and transfuse if <7% (5) HTN (hypertension): (6) Heart failure with preserved ejection fraction (HFpEF, >= 50%): Status: Acute (7) Sacral decubitus ulcer: Status: Acute (8) Goals of care, counseling/discussion: Status: Acute Assessment and plan: Jackie was seen for Palliative consultation due to worsening respiratory failure. She has been seen during hospitalizations in the past (dating back to 2019) but never had outpatient f/u. Discussed Goals of care: In regard to the lung nodules, she previously felt that if she is found to have cancer- she would never want treatment. Her of small cell lung cancer and her dad had cancer and after 1 round of chemo. Today she states that she would want Bx if there was a question of cancer. She would want the diagnosis and she would consider treatment. She does not think she would want chemo but would consider other options. At baseline, she is SOB with talking and activity. She has to take breaks to rest after walking a short distance. She has a walker and cane but does not always use them, she walks around the house. She has to hold onto something if she is standing for more than 2-3 minutes. She spends a lot of time in her recliner. She has a pressure ulcer on her coccyx. She has lost some weight but states it was on purpose. It is easier to breathe when her weight is lower. She has tele-monitoring via . She is working with [employer], they are helping her with insurance. She has previously established that she is a DNR/DNI. COLST on file. She is open to follow up with palliative care but prefers a home visit. Will have the office f/u with her after discharge to offer HV. Review of Systems Narrative: PER HPI PFSH All Active Problems (Updated 07/03/24 @ 16:01 by Marga Nassar NP) Goals of care, counseling/discussion (Acute) Hypercapnic respiratory failure (Acute) Right ventricular failure (Acute) Pulmonary infiltrates (Acute) Pulmonary hypertension (Acute) Chronic hypoxic respiratory failure (Acute) Sacral decubitus ulcer (Acute) Uvular swelling (Acute) Anemia (Chronic) Chronic obstructive lung disease (Chronic) h/o tobacco use, quit 2008 Heart failure with preserved ejection fraction (HFpEF, >= 50%) (Acute) CAP (community acquired pneumonia) (Acute) COPD exacerbation (Acute) Cervical arthritis with myelopathy (Acute) Arthritis (Acute 02/10/13) Osteoporosis (Acute 01/14/08) Tachycardia (Chronic) GERD (gastroesophageal reflux disease) (Chronic) Medical History GI bleed Hypomagnesemia Bilateral lower extremity edema Acute respiratory failure with hypoxia HTN (hypertension) COVID-[address] Tobacco dependence due to cigarettes Quit smoking when she was 59 years old COVID-19 -associated with COPD exacerbation Parotid mass Resolved after 3 months without intervention Acute on chronic respiratory failure with hypoxia and hypercapnia Acute on chronic diastolic CHF (congestive heart failure) CAP (community acquired pneumonia) GERD (gastroesophageal reflux disease) HTN (hypertension) Surgical History Endoscopic Carpal Tunnel release (03/31/13) Left 7.2.13 Family History Mother Essential hypertension Hyperlipidemia Adopted Dementia Father Heart disease Neoplasm LUNG Lung cancer Sister No problems noted. Sister No problems noted. Brother No problems noted. Brother No problems noted. Maternal Grandfather Stroke Paternal Grandfather Heart disease Maternal Grandmother Heart disease Paternal Grandmother Stroke Son Diabetes Essential hypertension Daughter No problems noted. Social History Smoking/Tobacco Use Status: Former Tobacco Use tobacco type: cigarettes Quit Date: 09/30/13 Tobacco: How many years used: 50 Second Hand Exposure: Yes Smoking risk assessment performed?: Yes Alcohol Intake: never Drug use: Never Substance use type: does not use Counseling given: No Counseling provided: none Caregiver/Support person: No Household members: family Housing: house Communication Needs: None Do you need help understanding health information?: Never Pets and animals: Yes Pets and animals: dog(s) Sexually active: No Do you think of yourself as: straight/heterosexual Current gender identity: female What is your relationship status?: How often do you talk on the phone with friends or family?: three or more times per week How often do you get together with friends or relatives?: three or more times per week Do you belong to any clubs or organized social groups?: no Panel score (0-1 are the most socially isolated patients): 1 What type of physical activity do you participate in: none Special juan needs: No Seatbelt use: sometimes Helmet use: No Drive intox or ride w/intox jeep driver: No Do you feel safe at home: Yes Do you feel safe in your relationship?: Yes Additional Social history: Lives with Son on [facility] Exam Narrative Exam Narrative: General: pleasant, elderly female, sitting up in her hospital bed. She is awake, alert and oriented. Appears mildly SOB with talking. HEENT: normocephalic, atraumatic, EOMI, mmm Neck: supple Respiratory: appears mildly SOB with talking. Ext: edema to BLEs Results Last Vital Signs Temp 36.7 C 06/25/24 07:49 Pulse 89 06/25/24 08:10 Resp 17 06/25/24 07:49 BP 116/52 L 06/25/24 07:49 Pulse Ox 93 06/25/24 07:49 Labs 06/26/24 09:02 06/26/24 09:02 Labs: Laboratory Results - last 24 hr 06/25/24 06:23 WBC 5.98 RBC 2.76 L Hgb 7.0 L* Hct 24.5 L MCV 89 MCH 25.4 L MCHC 28.6 L RDW 17.9 H Plt Count 336 MPV 9.9 Iron 11 L TIBC 398 Transferrin % Sat 3 L Time Spent Time Spent with Patient Time Spent(min): 72
[2024-06-25 15:19] VITALS: BP 115/52; PULSE 111; RESP 16; TEMP 36.6; O2SAT 94
--- NOTE | 2024-06-25 15:19 | PGE_ITS ---
Date of Service Date of service: 06/25/24 Time of Service: 15:19 Assessment and Plan Assessment and plan (1) Acute on chronic respiratory failure with hypoxia: Status: Acute Assessment and plan: Worsening hypoxia associated with COPD exacerbation. CTA reassuring, she doesn't have a PE or another acute pnuemonia. She is not clearly wheezy, though I do think prudent to continue trement for COPD exacerbation. She does not appear to be in active CHF. She has had these nodules/infiltrates that have not been worked up, however reviewing the CTs it doesn't look like these have progressed c/w cancer. She has oupatient pulmonology follow up. Anemia may be contributing to symptoms, see below. She does use BiPAP at night, continue supplemental 02. She is approaching her baseline again, may be ready for discharge tomorrow. (2) COPD exacerbation: Status: Acute Assessment and plan: Got dexamethasone in ED, continue prednisone, antibiotics, nebs. (3) Uvular swelling: Status: Acute Assessment and plan: Per ENT this is a wart, Hepler to remove as outpatient (not available to come now) (4) Anemia: Status: Chronic Assessment and plan: Associated with recent GI bleed. Severe but not dropping. Still a little blood mixed in stool yesterday, clearing Iron is very low, IV iron today. Will follow and transfuse if <7% (5) HTN (hypertension): Assessment and plan: on amlodipine high dose. This is likely causing LE edema, but I assume she ended up on this after poor response to thizide, DOE inh, metoprolol. No change for now. (6) Heart failure with preserved ejection fraction (HFpEF, >= 50%): Status: Acute Assessment and plan: I don't think she is frankly fluid overloaded or in active CHF. (7) Sacral decubitus ulcer: Status: Acute Assessment and plan: Healing per history. Continue wound care. (8) DVT prophylaxis: Status: Acute Assessment and plan: SCDs/TEDs, no heparin due to GI bleed. (9) Discharge planning issues: Status: Acute Assessment and plan: I did talk with her about palliative care. She Subjective Subjective Patient reports: tolerating a regular diet; denies vomiting or fever Interval history since last seen: Her breathing is feeling a little better. Objective Last Vital Signs Temp 36.7 C 06/25/24 07:49 Pulse 89 06/25/24 08:10 Resp 17 06/25/24 07:49 BP 116/52 L 06/25/24 07:49 Pulse Ox 93 06/25/24 07:49 Laboratory Results - last 24 hr 06/25/24 06:23 WBC 5.98 RBC 2.76 L Hgb 7.0 L* Hct 24.5 L MCV 89 MCH 25.4 L MCHC 28.6 L RDW 17.9 H Plt Count 336 MPV 9.9 Iron 11 L TIBC 398 Transferrin % Sat 3 L Time Spent with Patient Time Spent with Patient: >50 minutes Time was spent: preparing to see the patient(eg.review tests), obtaining and/or reviewing separately otained hiistory, ordering medications,tests, procedures, referring, communicating with other health intensive care anaesthetist, indepentently interpreting results, counseling the patient and care coordination
--- NOTE | 2024-06-25 15:37 | INITIAL_ITS ---
Date of service: 06/25/24 Time of Service: 15:37 Care Management Initial Assmt Initial Assessment Reason for Hospitalization: acute on chronic respiratory failure Functional Status/Living Situation Patient Presentation: Jackie was sitting up in bed when CM met with her. She stated that her son was here visiting, and left shortly before CM arrived. She reported that when she was home, she felt something in her throat and it was bothering her to the point that it felt like she couldn't breath well, so she returned to [facility]. She stated that she was worried that she had cancer, but that she was told by the doctor that it is likely not cancer, although her respiratory failure appears to be progressing. She agreed to meet with Palliative care, who saw her this afternoon. CM assisted with canceling her PCP appt as well as her RCT ride there, and set up an RCT ride for her pulmonology appt next week. CM will continue to follow. Town of Residence: [facility] Resides with: Child (Vnih díaz) Significant Other/Family: Local Natural Supports: Vinh díaz lives with Jackie Employment Status: Retired ([employer]) Instrumental Activities of Daily Living (ADLs): Independent Medications Medication Management: No Issues/Barriers identified Physical Functioning/Mobility Assistive Device: home O2, bipap FWW, cane Advance Directives Advance Directives: Do you have an Advance Directive: Y 02/10/13 10:22 AD On File at [facility]: Y 02/10/13 11:03 Date Asked 02/02/19 05/29/24 10:37 AD Date Reviewed 06/24/24 06/24/24 07:38 COLST On File at [facility] Yes 05/29/24 10:37 COLST Date Scanned 02/05/19 05/29/24 10:37 Code Status Resuscitation Status DNR/DNI Insurance Coverage/Financial Issues Insurance: [facility] Care Team Visit Care Team Role Provider Type Deven Roberto NP Primary Care Provider NURSE PRACTITIONER Otilio Romo MD Emergency Provider [facility] STAFF PHYSICIAN Otilio Greene Admit Provider [facility] STAFF PHYSICIAN Attending Provider Discharge Potential Discharge Needs: PCP F/U Appt (had to cancel PCP appt for 06/26 due to hospitalization, will need f/u) Anticipated Barriers to Discharge: None Identified Patient/Family Education Needs: Review discharge instructions, discuss Ask Me Three Transportation: Private vehicle Plan: Anticipate Jackie will return home once medically cleared with a resumption of RN, PT, FIELD MARKETER. Her son will drive her home via private vehicle. She will follow up with pulmonology (06/30/24), her PCP, and her discharge plan of care. CM will continue to follow. PFSH All Active Problems Sacral decubitus ulcer (Acute) Discharge planning issues (Acute) DVT prophylaxis (Acute) Acute on chronic respiratory failure with hypoxia (Acute) Uvular swelling (Acute) Anemia (Chronic) Chronic obstructive lung disease (Chronic) h/o tobacco use, quit 2008 Heart failure with preserved ejection fraction (HFpEF, >= 50%) (Acute) CAP (community acquired pneumonia) (Acute) COPD exacerbation (Acute) Cervical arthritis with myelopathy (Acute) Arthritis (Acute 02/10/13) Osteoporosis (Acute 01/14/08) Tachycardia (Chronic) GERD (gastroesophageal reflux disease) (Chronic) Medical History GI bleed Bilateral lower extremity edema Acute respiratory failure with hypoxia COVID-[address] Tobacco dependence due to cigarettes Quit smoking when she was 59 years old COVID-19 -associated with COPD exacerbation Parotid mass Resolved after 3 months without intervention Acute on chronic respiratory failure with hypoxia and hypercapnia Hypomagnesemia Acute on chronic diastolic CHF (congestive heart failure) CAP (community acquired pneumonia) HTN (hypertension) GERD (gastroesophageal reflux disease) HTN (hypertension) Surgical History Endoscopic Carpal Tunnel release (03/31/13) Left 7.2.13 Family History Mother Essential hypertension Hyperlipidemia Adopted Dementia Father Heart disease Neoplasm LUNG Lung cancer Sister No problems noted. Sister No problems noted. Brother No problems noted. Brother No problems noted. Maternal Grandfather Stroke Paternal Grandfather Heart disease Maternal Grandmother Heart disease Paternal Grandmother Stroke Son Diabetes Essential hypertension Daughter No problems noted. Social History (Updated 06/24/24 @ 19:40 by Otilio Greene) Smoking/Tobacco Use Status: Former Tobacco Use tobacco type: cigarettes Quit Date: 09/30/13 Tobacco: How many years used: 50 Second Hand Exposure: Yes Smoking risk assessment performed?: Yes Alcohol Intake: never Drug use: Never Substance use type: does not use Counseling given: No Counseling provided: none Caregiver/Support person: No Household members: family Housing: house Communication Needs: None Do you need help understanding health information?: Never Pets and animals: Yes Pets and animals: dog(s) Sexually active: No Do you think of yourself as: straight/heterosexual Current gender identity: female What is your relationship status?: How often do you talk on the phone with friends or family?: three or more times per week How often do you get together with friends or relatives?: three or more times per week Do you belong to any clubs or organized social groups?: no Panel score (0-1 are the most socially isolated patients): 1 What type of physical activity do you participate in: none Special juan needs: No Seatbelt use: sometimes Helmet use: No Drive intox or ride w/intox trailer driver: No Do you feel safe at home: Yes Do you feel safe in your relationship?: Yes Additional Social history: Lives with Son on [facility] Readmission Within the Past 30 Days Yes or No: Yes Date of First Admission Date of 1st Admission: 06/19/24 Date of this Admission Date of Admission: 06/24/24 This admission was: Through ED Office Visit Since 1st Admission Have you seen your PCP in the office since discharge?: No Had an appointment Been Scheduled?: Yes Date of Scheduled Appointment: 06/26/24 Speicalist Appointments Have you seen any other specialist since your 1st Admission?: No Date you saw the Specialist: scheduled 06/30/24 Specialist Seen: gold wheel blocker and polisher I. Interview patient and/or Family Difficulty reaching your doctor or getting an office appt?: No Have you had trouble purchasing/ or taking medication?: No Did you feel ready for discharge when you left the last time: Yes Were services received that you thought were set up on disch: Yes What services were received?: AUDREY HENDERSON How do you think you became sick enough to come back?: Jackie stated that after being home, her throat became irritated to the point where she felt that she was having difficulty breathing, so she returned to [facility]. She stated that it is still bothering her today. She plans to return home, once she is cleared by MD, where she feels well supported by her son, Vinh, who lives with her. CM assisted in canceling her PCP appt for tomorrow, as well as the RCT ride there, and CM set up an RCT ride for her pulmonology appt next week. CM will continue to follow. SDOH(Care Management) Screening Will the Patient Participate in the Screening?: Yes Do you worry about having a steady place to live?: no Problems where you live: no known problems In the past 12 months, have you had to go without electric, gas, oil or water in your home?: no Have you or anyone in your house had to go without enough food to eat?: no Has lack of transportation kept you from medical appointments or from doing things needed for daily living?: no Has anyone in your support network made you feel unsafe for any reason?: no
[2024-06-25 21:40] VITALS: BP 118/81; PULSE 115; RESP 18; TEMP 36.5; O2SAT 94
[2024-06-26] VITALS (14 sets, daily range): BP systolic 116–136; BP diastolic 59–69; PULSE 89–115; RESP 18–20; TEMP 36.5–37; O2SAT 91–97
--- NOTE | 2024-06-26 06:25 | NUR.NOTE ---
Nursing Note: Pt HR 115 at rest (Usually 90s), on exertion HR goes to 140's and O2 drops to 70's on 2L NC which it had not been doing this when I had her last night, she is pale, still seeing blood in her stool, she also doesn't usually have an oxygen requirement at home (reports she usually has dyspnea on exertion at home, probably did need oxygen on exertion before this admission, but she does not usually have this much dyspnea on exertion, and was not needing oxygen at rest) fatigued, BP on lower side for her (usually hypertensive) H&H 04/22. Gave 1u RBC, pt responded well. HR back down to 80s, still using 2l NC on exertion but does not get as tachycardic nor does she drop her oxygen saturation. At rest, her oxygen saturation is 88-92 without oxygen. Second unit of RBC transfusing.
[2024-06-26] MEDS: Ipratropium/Albuterol 4 GM 120 PUFF INH IH ×2 (07:51→11:40)
[2024-06-26] MEDS: Tiotropium/Olodaterol 10 PUFF INHALER 2 PUFF IH (07:51)
[2024-06-26] MEDS: Pantoprazole 40 MG TABCR PO (07:57)
[2024-06-26] MEDS: Amoxicillin 875/Clav. 125 TAB PO (07:57)
[2024-06-26] MEDS: Docusate Sodium 100 MG CAP PO (07:57)
[2024-06-26] MEDS: Montelukast 10 MG TAB PO (07:57)
[2024-06-26] MEDS: predniSONE 20 MG TAB 40 MG PO (07:57)
[2024-06-26] MEDS: Furosemide 20 MG TAB 40 MG PO (07:58)
[2024-06-26] MEDS: Digoxin 0.125 MG TAB PO (07:58)
[2024-06-26] MEDS: Nystatin 500000 UNITS/5 ML SUSP 5ML CUP PO ×2 (07:58→13:37)
[2024-06-26] MEDS: Ferrous Sulfate 325 MG TAB PO (07:58)
[2024-06-26] MEDS: Doxycycline Hyclate 100 MG CAP PO (07:58)
[2024-06-26] MEDS: amLODIPine 10 MG TAB PO (07:58)
[2024-06-26 09:09] LABS: Abs Immature Grans 0.12 10^3/uL (0.0-0.06); Absolute Basophil Count 0.05 10^3/uL (0.0-0.2); Absolute Eosinophil Count 0.02 10^3/uL (0.0-0.7); Absolute Lymphocyte Count 0.99 10^3/uL (1.2-3.4); Absolute Monocyte Count 1.25 10^3/uL (0.1-0.8); Absolute Neutrophil Count 7.34 10^3/uL (1.2-6.7); Basophils % 0.5 %; Eosinophils % 0.2 %; HCT 33.5 % (36.0-46.0); HGB 9.9 g/dL (11.2-15.7); Immature Grans % 1.2 %; Lymphocytes % 10.1 %; MCH 26.3 pg (27.0-33.0); MCHC 29.6 % (32.0-36.0); MCV 89 fL (80-95); MPV 9.3 fL (8.0-11.0); Monocytes % 12.8 %; Neutrophils % 75.2 %; Nucleated RBC 0.3 % (0.0-0.3); Platelet Count 380 10^3/uL (130-400); RBC 3.77 10^6/uL (3.93-5.22); RDW-SD 58.3 fL; WBC 9.77 10^3/uL (4.4-10.8)
[2024-06-26 09:37] LABS: ALT 26 U/L (14-59); AST 16 U/L (15-37); Albumin 3.2 g/dL (3.4-5.0); Alkaline Phosphatase 98 U/L (46-116); Anion Gap 2.3 mmol/L (3-11); BUN 18 mg/dL (7-18); Bilirubin, Total 0.41 mg/dL (0.2-1.0); CO2 35.7 mmol/L (21.0-32.0); Calcium 9.1 mg/dL (8.5-10.1); Chloride 97 mmol/L (98-107); Estimated GFR 59.12 (mL/min/1.73m2); Glucose 97 mg/dL (74-106); Potassium 3.9 mmol/L (3.5-5.1); Sodium 135 mmol/L (136-145); Total Protein 6.9 g/dL (6.4-8.2)
--- NOTE | 2024-06-26 12:07 | DSE_ITS ---
Date of service: 06/26/24 Time of Service: 12:08 DS: Diagnosis Discharge Diagnosis (1) Acute on chronic respiratory failure with hypoxia: Status: Acute (2) COPD exacerbation: Status: Acute (3) Uvular swelling: Status: Acute (4) Anemia: Status: Chronic (5) HTN (hypertension): (6) Heart failure with preserved ejection fraction (HFpEF, >= 50%): Status: Acute (7) Sacral decubitus ulcer: Status: Acute (8) DVT prophylaxis: Status: Acute (9) Discharge planning issues: Status: Acute Discharge Plan Disposition Patient Disposition: Home W/Home Health Services Condition: Improving Discharge Details Reason For Visit: Acute on Chronic Respiratory Failure Admit Date/Time: 06/24/24 11:37 Admit Provider: Otilio Greene Attending Provider: Otilio Greene Primary Care Provider: Audie RobertoDeven Hospital Course Hospital Course: 73 yo F with COPD, HFpEF, history of CVA who presented with increasing shortness of breath and feeling like something was stuck in her throat. She had recently been admitted for community acquired pneumonia and then GI bleed. She was found to be hypoxic and was treated for COPD exacerbation with steroids and continuation of the previously prescribed antibiotics. CTA was negative for PE. She was discharged on her chronic home inhalers. Severe anemia also contributed to her hypoxia. She has some small residual blood in her stool, and with her hemoglobin down to 7.0 she was transfused 2 units, which brought her up to hgb 9.9 and improved her symptoms. Her transferrin saturation was only 3% and she was given one 200mg venofer infusion as well. She should continue oral iron daily or every other day. She can use milk of magnesium for hard stools. Case was reviewed with Dr. Hendrickson from surgery who recommended colonoscopy in 4-6 weeks. She should have a repeat CBC within the week. Her PPI was continued. She was not in heart failure. Her digoxin level was therapeutic at 0.94. The indication for ongoing digoxin therapy is not clear to me, but will defer to PCP. Video larygnoscopy in the ED showed a whitish uvular growth that Dr. Sapp thought was a wart. Neck CT was benign. She was initially treated with nystatin and her inhaled cortocosteroid held over concern for thrush, but this was stopped. He was not able to come in but recommended outpatient follow up for removal of the wart. She had a previous lung mass vs infiltrate and had declined referral for evaluation. Her recent CTs including on this admission showed some improvement. She met with palliative care to clarify her goals. She plans to keep her appointment with pulmonology and is open to further diagnostic evaluation. 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 Home Meds and New Rx's Prescriptions: New prednisone 20 mg tablet See Taper PO DAILY 5 Days Qty: 7 0RF Taper: Prednisone 20mg taper 40 mg Daily for 2 Days and 0 Hour 20 mg Daily for 2 Days and 0 Hour 10 mg Daily for 2 Days and 0 Hour Continued Combivent Respimat 20-100 mcg/actuation mist 1 puff IH QID Qty: 12 4RF Rx Instructions: space evenly during waking hours amlodipine 10 mg tablet 10 mg PO BID Qty: 180 3RF digoxin 125 mcg (0.125 mg) tablet 125 mcg PO QAM Qty: 90 4RF esomeprazole magnesium 40 mg capsule,delayed release(DR/EC) 40 mg PO DAILY Qty: 90 3RF fluticasone propion-salmeterol [Advair Diskus] 250-50 mcg/dose blister with device 1 inh Inhalation BID Qty: 3 4RF furosemide 20 mg tablet See Rx Instructions .ROUTE .COMPLEX Qty: 135 4RF Dose Instruction: TAKE 1 TABLET (20MG) BY MOUTH EVERY OTHER DAY ALTERNATING WITH TAKING 2 TABLETS (40MG) BY MOUTH EVERY OTHER DAY Rx Instructions: TAKE 1 TABLET (20MG) BY MOUTH EVERY OTHER DAY ALTERNATING WITH TAKING 2 TABLETS (40MG) BY MOUTH EVERY OTHER DAY montelukast 10 mg tablet 10 mg PO DAILY Qty: 90 3RF benzonatate 100 mg capsule 100 mg PO BID PRN (Reason: cough) Qty: 30 0RF acetaminophen 500 mg Tablet 1,000 mg PO PRN PRN albuterol sulfate 90 mcg/actuation HFA aerosol inhaler 2 puff inhalation Q6H PRNQty: 8.5 0RF ipratropium-albuterol 0.5 mg-3 mg(2.5 mg base)/3 mL solution for nebulization 3 ml inhalation QID Qty: 180 0RF guaifenesin [Mucinex] 600 mg tablet extended release 12hr 600 mg PO Q12H PRNQty: 10 0RF docusate sodium [Colace] 100 mg capsule 100 mg PO DAILY Qty: 30 0RF ferrous sulfate [iron] 325 mg (65 mg iron) tablet 325 mg PO DAILY Qty: 30 0RF Discontinued pantoprazole [Protonix] 40 mg tablet,delayed release (DR/EC) 40 mg PO BID Qty: 60 0RF amoxicillin-pot clavulanate 875-125 mg tablet 1 tab PO Q12H Qty: 10 0RF doxycycline hyclate 100 mg capsule 100 mg PO BID Qty: 10 0RF Discharge Instructions Instructions: Chronic Obstructive Pulmonary Disease (COPD) (DC) Additional Instructions: You have what seems to be a wart on your Uvula. You should have an appointment with Dr. Sapp at the ENT clinic to remove this. You should have a colonoscopy because of the bleeding you have had. This should happen in about a month to allow you to recover first. You should have an appointment at the surgery clinic to plan this in the next few weeks. We sent a taper of prednisone to the pharmacy. You have taken enough antibiotics. Stand Alone Forms: Nursing Discharge Form Referrals: Deven Collier NP [Primary Care Provider] - (Please call your primary care provider to schedule a hospital discharge follow up appointment, to be seen within 1-2 weeks from discharge. ) Activity:: Activity as Tolerated Equipment/Supplies:: Oxygen (L/min Below) Diet:: Low Sodium Discharge Orders Discharge Orders: Discharge Order (Routine); Ordered 06/26/24 Ordered By: Otilio Greene Other Ambulatory Orders: Complete Blood Count w/Diff (Routine) Timeframe: 5 Days Facility: [facility] - Location: Laboratory Outpatient - [facility] Ordered By: Otilio Greene Discharge Data Discharge Date/Time-TO BE ENTERED AT DEPARTURE: 06/26/24 14:10 DS: Summary Time Spent with Patient providing and/or coordinating discharge services: Greater than 30 minutes Status at Discharge Functional status at discharge: independent ambulation Overall status at discharge: patient is back to baseline Mental Status: mental status grossly normal Speech and Movement: speech and movement normal Mood: congruent mood Affect: normal affect Quality:SDOH Health Related Social Needs: Health related social needs inadequate housing Health related social needs details lives with son Exam Narrative Exam Narrative: GEN: Alert and oriented, no acute distress sitting up in chair speaking in full sentences. LUNGS: Mildly diffusely deminished but improved air movement, no wheeze or rales. On 2 L via NC. CV: RRR with no murmurs, gallops, or rubs. No elevation JVP ABD: active bowel sounds, soft, nontender and nondistended. No masses. EXT: no cyanosis, clubbing. Warm. trace royer edema to shins . Psych Mental Status: mental status grossly normal Speech and Movement: speech and movement normal Mood: congruent mood Affect: normal affect DS: Data Vitals/I&O Vitals and I&O: Vital Signs Temperature 36.5 C 06/26/24 10:51 Temperature Source Temporal Artery Scan 06/26/24 10:51 Pulse 108 H 06/26/24 10:51 Pulse Rhythm Regular 06/24/24 13:34 Pulse 87 06/24/24 13:00 Respiratory Rate 18 06/26/24 10:51 Respiratory Effort Labored, Accessory Muscle Use, Incrsd Work of Breathing 06/24/24 13:34 Respiratory Depth Deep 06/24/24 13:34 Respiratory Pattern Normal 06/24/24 13:34 Blood Pressure 125/69 06/26/24 10:51 Blood Pressure Mean 82 06/24/24 11:31 Pulse Oximetry 97 06/26/24 10:51 Oxygen Delivery Method Nasal Cannula 06/26/24 10:51 Oxygen Flow Rate 2 06/26/24 10:51 Fraction of Inspired Oxygen (FIO2) 1 06/25/24 15:45 Pain Level 0 06/25/24 21:00 Comment 4/10 back pain 06/24/24 15:33 Intake & Output 06/25/24 06/26/24 06/26/24 23:59 11:59 23:59 Intake Total 250 / 720 1010 / 1010 Output Total 700 / 1300 850 / 850 Balance -450 / -580 160 / 160 Weight 70 kg Intake: Oral 250 / 610 Blood Product 1010 / 1010 Rbc Leuko Reduced Unit 310 / 310 [id number] Rbc Leuko Reduced Unit 700 / 700 [id number] Output: Urine 700 / 1300 850 / 850 Other: Urine Color Yellow Yellow Urine Appearance Clear Clear Urine Odor None Voiding Methods Bedside Commode Bedside Commode Data Completed and Pending Labs on day of discharge: Labs from last 24 hours 06/26/24 06/24/24 09:02 10:11 WBC 9.77 RBC 3.77 L Hgb 9.9 L D Hct 33.5 L MCV 89 MCH 26.3 L MCHC 29.6 L RDW 18.0 H Plt Count 380 MPV 9.3 Immature Gran % 1.2 Neutrophils % 75.2 Lymphocytes % 10.1 Monocytes % 12.8 Eosinophils % 0.2 Basophils % 0.5 Nucleated RBC % 0.3 Absolute Neutrophils 7.34 H Absolute Lymphocytes 0.99 L Absolute Monocytes 1.25 H Absolute Eosinophils 0.02 Absolute Basophils 0.05 Sodium 135 L Potassium 3.9 Chloride 97 L Carbon Dioxide 35.7 H Anion Gap 2.3 L BUN 18 Creatinine 1.0 Est GFR (CKD-EPI 2020) 59.12 Glucose 97 Calcium 9.1 Total Bilirubin 0.41 AST 16 ALT 26 Alkaline Phosphatase 98 Total Protein 6.9 Albumin 3.2 L ABO/Rh A Positive Antibody Screen NEGATIVE Crossmatch See Detail PFSH All Active Problems Sacral decubitus ulcer (Acute) Discharge planning issues (Acute) DVT prophylaxis (Acute) Acute on chronic respiratory failure with hypoxia (Acute) Uvular swelling (Acute) Anemia (Chronic) Heart failure with preserved ejection fraction (HFpEF, >= 50%) (Acute) CAP (community acquired pneumonia) (Acute) COPD exacerbation (Acute) Cervical arthritis with myelopathy (Acute) Arthritis (Acute 02/10/13) Chronic obstructive lung disease (Chronic) h/o tobacco use, quit 2008 Osteoporosis (Acute 01/14/08) Tachycardia (Chronic) GERD (gastroesophageal reflux disease) (Chronic) Medical History GI bleed Bilateral lower extremity edema Acute respiratory failure with hypoxia COVID-[address] Tobacco dependence due to cigarettes Quit smoking when she was 59 years old COVID-19 -associated with COPD exacerbation Parotid mass Resolved after 3 months without intervention Acute on chronic respiratory failure with hypoxia and hypercapnia Hypomagnesemia Acute on chronic diastolic CHF (congestive heart failure) CAP (community acquired pneumonia) HTN (hypertension) GERD (gastroesophageal reflux disease) HTN (hypertension) Surgical History Endoscopic Carpal Tunnel release (03/31/13) Left 7.2.13 Family History Mother Essential hypertension Hyperlipidemia Adopted Dementia Father Heart disease Neoplasm LUNG Lung cancer Sister No problems noted. Sister No problems noted. Brother No problems noted. Brother No problems noted. Maternal Grandfather Stroke Paternal Grandfather Heart disease Maternal Grandmother Heart disease Paternal Grandmother Stroke Son Diabetes Essential hypertension Daughter No problems noted. Social History (Updated 06/24/24 @ 19:40 by Otilio Greene) Smoking/Tobacco Use Status: Former Tobacco Use tobacco type: cigarettes Quit Date: 09/30/13 Tobacco: How many years used: 50 Second Hand Exposure: Yes Smoking risk assessment performed?: Yes Alcohol Intake: never Drug use: Never Substance use type: does not use Counseling given: No Counseling provided: none Caregiver/Support person: No Household members: family Housing: house Communication Needs: None Do you need help understanding health information?: Never Pets and animals: Yes Pets and animals: dog(s) Sexually active: No Do you think of yourself as: straight/heterosexual Current gender identity: female What is your relationship status?: How often do you talk on the phone with friends or family?: three or more times per week How often do you get together with friends or relatives?: three or more times per week Do you belong to any clubs or organized social groups?: no Panel score (0-1 are the most socially isolated patients): 1 What type of physical activity do you participate in: none Special juan needs: No Seatbelt use: sometimes Helmet use: No Drive intox or ride w/intox funeral driver: No Do you feel safe at home: Yes Do you feel safe in your relationship?: Yes Additional Social history: Lives with Son on [facility] Time Spent with Patient Time Spent with Patient: 45-69 minutes Time was spent: preparing to see the patient(eg.review tests), obtaining and/or reviewing separately otained hiistory, ordering medications,tests, procedures, referring, communicating with other health home health care case manager, indepentently interpreting results, counseling the patient and care coordination
[2024-06-26] MEDS: Milk of Magnesia 30 ML CUP PO (12:11)
--- NOTE | 2024-06-26 13:21 | CMDISCH_ITS ---
Date of service: 06/26/24 Time of Service: 13:21 LACE Index Scoring Tool Questions: Length of Stay (in days): 2 Was the patient admitted via the E.D.?: Yes Comorbidities: Cerebrovascular Disease, Congestive Heart Failure and Chronic Pulmonary Disease E.D. 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 Her son will drive her home via private vehicle. She will follow up with her PCP, pulmonology, and her discharge plan of care. She is happy to be going home. Patient/Family Education Needs: Review discharge instructions and limitations, discussion of self care needs including ask me three. Services Needed at Discharge: Home Health Care Services (resume HH RN, PT, SAFETY SECURITY OFFICER) SDOH Health Related Social Needs: Health related social needs inadequate housing Health related social needs details lives with son
== END 2024-06-26 14:10 | disposition home health service (06) | DRG 190 ==
LOC: ER 09:51 → MS 13:30
PROVIDERS: Family Medicine; Admitting Provider Family Medicine; Emergency Provider Emergency Medicine; PCP Nurse Practitioner Family; Visit Provider Family Medicine
DX: J44.1 Chronic obstructive pulmonary disease with (acute) exacerbation (principal); J96.21 Acute and chronic respiratory failure with hypoxia; I50.30 Unspecified diastolic (congestive) heart failure; M47.12 Other spondylosis with myelopathy, cervical region; D64.9 Anemia, unspecified; I11.0 Hypertensive heart disease with heart failure; L89.159 Pressure ulcer of sacral region, unspecified stage; Z86.73 Personal history of transient ischemic attack (TIA), and cerebral infarction without residual deficits; M81.0 Age-related osteoporosis without current pathological fracture; K21.9 Gastro-esophageal reflux disease without esophagitis; Z87.891 Personal history of nicotine dependence; R91.8 Other nonspecific abnormal finding of lung field; B07.8 Other viral warts
CPT/HCPCS: 00123; 31575; 36415; 70491; 71275; 80048; 80053; 82805; 85027; 86850; 86900; 86901; 86920; 87637; 93005; 94640; 96365; 99291; J3430; 71045; 80162; 83540; 83550; 84484; 85014; 85018; 85025; 93010; 94664; 94760; 99222; 99223; 99232; 99233; 99239; J0295; J1100; J1756; J3490; J7512; J7620; P9016

== ENCOUNTER → 2024-06-30 10:34 | Outpatient (BNVA) | payer OTHER, SELFPAY | PROVIDERS: PCP Nurse Practitioner Family; Referring Provider Nurse Practitioner Family; Visit Provider Physician Assistant Surgical | DX: J43.9 Emphysema, unspecified (principal); J96.11 Chronic respiratory failure with hypoxia; J96.92 Respiratory failure, unspecified with hypercapnia; I27.20 Pulmonary hypertension, unspecified; R91.8 Other nonspecific abnormal finding of lung field; I50.810 Right heart failure, unspecified | CPT/HCPCS: 99215 ==

== ENCOUNTER 2024-07-05 09:12 | Observation (INO) | payer OTHER, SELFPAY ==
[2024-07-05] VITALS (107 sets, daily range): BP systolic 127–163; BP diastolic 45–88; PULSE 59–124; RESP 2–43; TEMP 36.2–36.8; O2SAT 85–98
--- NOTE | 2024-07-05 09:38 | ED.GENADUL_ITS ---
Discharge Plan Disposition Patient Disposition: Admit to [facility] Condition: Stable Discharge Details Chief Complaint: Allergic Clinical Impression: Acute bronchospasm Primary Care Provider: Deven Collier ED Provider: Khadra Long Home Meds and New Rx's Prescriptions: No Action Combivent Respimat 20-100 mcg/actuation mist 1 puff IH QID Qty: 12 4RF Rx Instructions: space evenly during waking hours amlodipine 10 mg tablet 10 mg PO BID Qty: 180 3RF digoxin 125 mcg (0.125 mg) tablet 125 mcg PO QAM Qty: 90 4RF esomeprazole magnesium 40 mg capsule,delayed release(DR/EC) 40 mg PO DAILY Qty: 90 3RF fluticasone propion-salmeterol [Advair Diskus] 250-50 mcg/dose blister with device 1 inh Inhalation BID Qty: 3 4RF furosemide 20 mg tablet See Rx Instructions .ROUTE .COMPLEX Qty: 135 4RF Dose Instruction: TAKE 1 TABLET (20MG) BY MOUTH EVERY OTHER DAY ALTERNATING WITH TAKING 2 TABLETS (40MG) BY MOUTH EVERY OTHER DAY Rx Instructions: TAKE 1 TABLET (20MG) BY MOUTH EVERY OTHER DAY ALTERNATING WITH TAKING 2 TABLETS (40MG) BY MOUTH EVERY OTHER DAY montelukast 10 mg tablet 10 mg PO DAILY Qty: 90 3RF benzonatate 100 mg capsule 100 mg PO BID PRN (Reason: cough) Qty: 30 0RF roflumilast 500 mcg tablet 500 mcg PO DAILY Qty: 90 4RF Incruse Ellipta 62.5 mcg/actuation blister with device 1 inh inhalation DAILY Qty: 90 4RF Rx Instructions: Take in the morning with advair inhaler acetaminophen 500 mg Tablet 1,000 mg PO PRN PRN albuterol sulfate 90 mcg/actuation HFA aerosol inhaler 2 puff inhalation Q6H PRNQty: 8.5 0RF ipratropium-albuterol 0.5 mg-3 mg(2.5 mg base)/3 mL solution for nebulization 3 ml inhalation QID Qty: 180 0RF guaifenesin [Mucinex] 600 mg tablet extended release 12hr 600 mg PO Q12H PRNQty: 10 0RF docusate sodium [Colace] 100 mg capsule 100 mg PO DAILY Qty: 30 0RF ferrous sulfate [iron] 325 mg (65 mg iron) tablet 325 mg PO DAILY Qty: 30 0RF HPI General Date/Time Provider Initiated Documentation: 07/05/24 09:14 . Limitations to Documentation: no limitations . Information obtained by: patient, family, RN notes reviewed and old records reviewed . History of Present Illness 73 year old F presents to the emergency department with the chief complaint of intermittned SOB and severe back pain, described as severe, Quality is described as stabbing, and is localized to the back. Patient reports no radiation. Patient started experiencing this hour(s) and it has been intermittent. No relieving factors improve symptom(s), No exacerbating factors reported . Patient notes loss of appetite, malaise and shortness of breath; denies confusion, chest pain, cough, fever/chills, nausea/vomiting, rash, syncope and weakness. Patient did receive the following treatments prior to arrival, none Related Data Home Medications ?Medication ?Instructions ?Recorded ?Confirmed acetaminophen 500 mg tablet 1,000 mg PO PRN PRN 10/23/19 07/05/24 albuterol sulfate 90 mcg/actuation 2 puff inhalation Q6H PRN #8.5 06/07/22 07/05/24 aerosol inhaler grams ipratropium 0.5 mg-albuterol 3 mg 3 ml inhalation QID #180 mL 06/02/24 07/05/24 (2.5 mg base)/3 mL nebulization soln amlodipine 10 mg tablet 10 mg PO BID #180 tabs 06/08/24 07/05/24 benzonatate 100 mg capsule 100 mg PO BID PRN cough #30 caps 06/08/24 07/05/24 digoxin 125 mcg (0.125 mg) tablet 125 mcg PO QAM #90 tabs 06/08/24 07/05/24 esomeprazole magnesium 40 mg 40 mg PO DAILY #90 caps 06/08/24 07/05/24 capsule,delayed release fluticasone 250 mcg-salmeterol 50 1 inh inhalation BID #3 ea 06/08/24 07/05/24 mcg/dose blistr powdr for inhalation (Advair Diskus) furosemide 20 mg tablet See Rx Instructions .Route 06/08/24 07/05/24 .COMPLEX #135 tabs ipratropium 20 mcg-albuterol 100 1 puff inhalation QID #12 grams 06/08/24 07/05/24 mcg/actuation mist for inhalation (Combivent Respimat) montelukast 10 mg tablet 10 mg PO DAILY #90 tab-caps 06/08/24 07/05/24 docusate sodium 100 mg capsule 100 mg PO DAILY #30 caps 06/22/24 07/05/24 (Colace) ferrous sulfate 325 mg (65 mg 325 mg PO DAILY #30 tabs 06/22/24 07/05/24 iron) tablet (iron) guaifenesin 600 mg tablet, 600 mg PO Q12H PRN #10 tabs 06/22/24 07/05/24 extended release 12 hr (Mucinex) roflumilast 500 mcg tablet 500 mcg PO DAILY #90 tabs 06/30/24 07/05/24 umeclidinium 62.5 mcg/actuation 1 inh inhalation DAILY #90 ea 07/03/24 07/05/24 blister powder for inhalation (Incruse Ellipta) Previous Rx's ?Medication ?Instructions ?Recorded albuterol sulfate 90 mcg/actuation 2 puff inhalation Q6H PRN #8.5 06/07/22 aerosol inhaler grams ipratropium 0.5 mg-albuterol 3 mg 3 ml inhalation QID #180 mL 06/02/24 (2.5 mg base)/3 mL nebulization soln amlodipine 10 mg tablet 10 mg PO BID #180 tabs 06/08/24 benzonatate 100 mg capsule 100 mg PO BID PRN cough #30 caps 06/08/24 digoxin 125 mcg (0.125 mg) tablet 125 mcg PO QAM #90 tabs 06/08/24 esomeprazole magnesium 40 mg 40 mg PO DAILY #90 caps 06/08/24 capsule,delayed release fluticasone 250 mcg-salmeterol 50 1 inh inhalation BID #3 ea 06/08/24 mcg/dose blistr powdr for inhalation (Advair Diskus) furosemide 20 mg tablet See Rx Instructions .Route 06/08/24 .COMPLEX #135 tabs ipratropium 20 mcg-albuterol 100 1 puff inhalation QID #12 grams 06/08/24 mcg/actuation mist for inhalation (Combivent Respimat) montelukast 10 mg tablet 10 mg PO DAILY #90 tab-caps 09/09/24 docusate sodium 100 mg capsule 100 mg PO DAILY #30 caps 06/22/24 (Colace) ferrous sulfate 325 mg (65 mg 325 mg PO DAILY #30 tabs 06/22/24 iron) tablet (iron) guaifenesin 600 mg tablet, 600 mg PO Q12H PRN #10 tabs 06/22/24 extended release 12 hr (Mucinex) roflumilast 500 mcg tablet 500 mcg PO DAILY #90 tabs 06/30/24 umeclidinium 62.5 mcg/actuation 1 inh inhalation DAILY #90 ea 07/03/24 blister powder for inhalation (Incruse Ellipta) Allergies Allergy/AdvReac Type Severity Reaction Status Date / Time lorazepam (From Ativan) Allergy Severe Anaphylaxis Verified 06/30/24 10:57 diltiazem Allergy Intermediate LE and Verified 06/30/24 10:57 Facial Edema hydrochlorothiazide Allergy Mild rash Verified 06/30/24 10:57 Sulfa (Sulfonamide Allergy Unknown Other (See Verified 06/30/24 10:57 Antibiotics) Comment) metoprolol AdvReac Intermediate Fluid Verified 06/30/24 10:57 Retention lisinopril AdvReac Mild did not Verified 06/30/24 10:57 feel well General Stated Complaint: Allergic KAYCE: 3 Review of Systems Constitutional Constitutional: Reports as per HPI, Denies chills, Denies fever(s), Denies headache(s), Denies lethargy and Denies poor appetite Eyes Eyes: Denies change in vision ENT Ears, Nose, Mouth, and Throat: Denies dizziness and Denies headache(s) Cardiovascular Cardiovascular: Reports as per HPI Respiratory Respiratory: Reports as per HPI, Denies chest congestion, Denies cough, Denies pain on inspiration and Denies pain with cough Gastrointestinal Gastrointestinal: Reports as per HPI, Denies abdominal pain, Denies diarrhea, Denies nausea and Denies vomiting Musculoskeletal Musculoskeletal: Reports as per HPI and Denies back pain Integumentary/Breasts Skin/Breast: Reports as per HPI and Denies rash Neurologic Neurologic: Reports as per HPI, Denies dizziness and Denies headache(s) Exam Const General: cooperative, healthy appearing, comfortable, no acute distress and well developed Nutritional Appearance: average body habitus and well nourished Orientation: alert, awake and oriented x3 HENMT Head: normal to inspection Ears: hearing grossly normal bilaterally Mouth: moist mucous membranes Chest Chest: normal inspection of the chest, normal palpation of entire chest wall and no crepitus Resp Effort & Inspection: normal respiratory effort, able to speak in complete sent ences and no respiratory distress Auscultation: crackles, diminished lung sounds, no rales, no rhonchi and no wheezes Cardio Rate: regular rate Rhythm: regular rhythm Heart Sounds: S1 normal and S2 normal Back/Spine/Pelvis Thoracic/Lumbar Spine: thoracic and lumbar spine normal to inspection Skin General skin exam: no rashes or lesions noted Trauma: no lacerations or abrasions Neuro General: patient alert, patient awake and patient oriented x3 Cognition: normal cognition Speech: speech normal Gait: normal gait Extrem General: normal to inspection, capillary refill normal, no pedal edema, no calf tenderness and normal gait Course Vital Signs Vital signs: Vital Signs Temperature 36.2 C L 07/05/24 09:15 Pulse 84 07/05/24 09:15 Respiratory Rate 17 07/05/24 09:15 Blood Pressure 137/64 07/05/24 09:15 Pulse Oximetry 88 L 07/05/24 09:15 Temperature 36.2 C L 07/05/24 09:15 Temperature Source Temporal Artery Scan 07/05/24 09:15 Pulse 84 07/05/24 09:15 Respiratory Rate 17 07/05/24 09:15 Respiratory Effort Non-Labored, Short of Breath 07/05/24 09:19 Blood Pressure 137/64 07/05/24 09:15 Pulse Oximetry 88 L 07/05/24 09:15 Oxygen Delivery Method Nasal Cannula 07/05/24 09:15 Pain Level 10 07/05/24 09:15 Medical Decision Making Patient is a pleasant 73-year-old female, companied by family, presenting today with chief complaint midline back pain that began abruptly this morning around 730. Patient is past medical history significant for GI bleed, acute respiratory failure with hypoxia for which she was admitted few weeks ago, h ypertension, tobacco dependence, parotid mass, CHF, GERD. Patient has chronic oxygen use at home, currently on 2 L typically although increased to 4 L in the ED today. Patient is questioning if some of her pain could be associated with new medications that were added by pulmonology this past week. Patient on roflumilast as well as started on inhalers, Ellipta. She states that the pain began about 1 hour after using the Ellipta. Patient does have findings concerning for malignancy. Patient has not wanted to have further workup or treatment for this, has been referred to palliative care and has not yet been seen by them. Since being discharged 927, patient reports that she has not had any fevers or acute changes in her status until today with a sudden onset of midline back pain. On exam, patient appears to be in no acute distress. She does appear chronically ill. She is on 4 L nasal cannula with an oxygen saturation in the low 90s. She does not appear to be in respiratory distress, no tripoding. She has diminished lung sounds throughout and some crackles also seem to be fairly diffuse. However, I do feel that air is moving, no indication to suggest a at this time. She does have intact pulses in the left lower extremity, difficult to palpate in the right. Will reposition the patient and check with Doppler. However, with the sudden onset of back pain as well as this abnormality, considered possible dissection. I did review her recent CT scans and there was no abnormalities noted at that point in this regard. CT reviewed by radiologist: FINDINGS: VASCULATURE: Pulmonary arteries: Normal. No pulmonary emboli. Aorta: Moderate aortic atherosclerosis. No aortic aneurysm or dissection. Moderate coronary artery calcification. Celiac trunk and mesenteric arteries: There is heavy calcification and severe stenosis at the origin of the celiac axis. SMA origin is widely patent. Renal arteries: There is calcification and least moderate stenosis of the right renal artery origin. The left renal artery is widely patent. MATHEW WELLS Preliminary Radiology Report PATENT COUNSEL (QA) DISCREPANCY? If there is a discrepancy between the preliminary and final interpretation, please notify [facility] via [email or web address]. If you do not have access to our QA portal, call our QA team at [phone] CONFIDENTIALITY STATEMENT This report is intended only for the use of the referring physician, and only in accordance with law, If you received this in error, call [phone] Page 2 of 2 Left iliac arteries: Heavy atherosclerosis of the left iliac artery. There is at least moderate stenosis of the distal common iliac artery just proximal to the bifurcation. CHEST: Lungs: The lungs are severely emphysematous. There is scarring in the right apex which appears unchanged from previous exam. No new focal infiltrate or nodule. Pleural spaces: Unremarkable. No pneumothorax. No pleural effusion. Heart: Unremarkable. No cardiomegaly. No pericardial effusion. ABDOMEN AND PELVIS: Liver: No mass. Gallbladder and biliary ducts: Unremarkable. No calcified stones. No ductal dilation. Pancreas: Unremarkable. No mass. No ductal dilation. Spleen: Unremarkable. No splenomegaly. Adrenal glands: Unremarkable. No mass. Kidneys: Unremarkable kidneys. No solid mass. No hydronephrosis. Stomach and bowel: Unremarkable. No obstruction. No mucosal thickening. Intraperitoneal space: Unremarkable. No free air. No significant fluid collection. Lymph nodes: There are small mediastinal and hilar lymph nodes. The most prominent in the right hilum measures 2.3 cm. It appears similar to the previous CT. Moderate atherosclerosis of the right iliac artery. No severe stenosis or aneurysm. Bones/joints: Unremarkable. No acute fracture. Soft tissues: Unremarkable. IMPRESSION: No evidence of aortic aneurysm or dissection. There is fairly extensive atherosclerosis. There is stenosis at the origin of the celiac axis and of the left common iliac artery. Labs reviewed. Significant for leukocytosis. Stable H&H. Patient is a CO2 67 which does appear to be her baseline. Lactate is 2.0. CMP without significant abnormality. Negative for for COVID and flu. Patient had another episode, she appears to be having bronchospasm. Given duoneb, called RT. Duoneb improved symptoms, lasted about 5 mintues. This can be associated with Ellipta, likely SE. With this, patient will need inpatient monitoring. Patient continues to do well after the DuoNeb. RT has been routinely checking in on the patient. She has not had any recurrent bronchospasm. Consulted with the hospitalist who agrees to admit the patient for continued observation. Patient does have a COLST form on file. She is in agreement this plan, also discussed with family. Will stop Ellipta. Quality:SDOH Health Related Social Needs: Health related social needs inadequate housing Health related social needs details lives with son ASHLEE All Active Problems (Updated 07/05/24 @ 16:34 by MARITA Benz) Acute bronchospasm (Acute) Goals of care, counseling/discussion (Acute) Hypercapnic respiratory failure (Acute) Right ventricular failure (Acute) Pulmonary infiltrates (Acute) Pulmonary hypertension (Acute) Chronic hypoxic respiratory failure (Acute) Sacral decubitus ulcer (Acute) Uvular swelling (Acute) Anemia (Chronic) Chronic obstructive lung disease (Chronic) h/o tobacco use, quit 2008 Heart failure with preserved ejection fraction (HFpEF, >= 50%) (Acute) CAP (community acquired pneumonia) (Acute) COPD exacerbation (Acute) Cervical arthritis with myelopathy (Acute) Arthritis (Acute 02/10/13) Osteoporosis (Acute 01/14/08) Tachycardia (Chronic) GERD (gastroesophageal reflux disease) (Chronic) Medical History GI bleed Hypomagnesemia Bilateral lower extremity edema Acute respiratory failure with hypoxia HTN (hypertension) COVID-[address] Tobacco dependence due to cigarettes Quit smoking when she was 59 years old COVID-19 -associated with COPD exacerbation Parotid mass Resolved after 3 months without intervention Acute on chronic respiratory failure with hypoxia and hypercapnia Acute on chronic diastolic CHF (congestive heart failure) CAP (community acquired pneumonia) GERD (gastroesophageal reflux disease) HTN (hypertension) Surgical History Endoscopic Carpal Tunnel release (03/31/13) Left 7.2.13 Family History Mother Essential hypertension Hyperlipidemia Adopted Dementia Father Heart disease Neoplasm LUNG Lung cancer Sister No problems noted. Sister No problems noted. Brother No problems noted. Brother No problems noted. Maternal Grandfather Stroke Paternal Grandfather Heart disease Maternal Grandmother Heart disease Paternal Grandmother Stroke Son Diabetes Essential hypertension Daughter No problems noted. Social History Smoking/Tobacco Use Status: Former Tobacco Use tobacco type: cigarettes Quit Date: 09/30/13 Tobacco: How many years used: 50 Second Hand Exposure: Yes Smoking risk assessment performed?: Yes Alcohol Intake: never Drug use: Never Substance use type: does not use Counseling given: No Counseling provided: none Caregiver/Support person: No Household members: family Housing: house Communication Needs: None Do you need help understanding health information?: Never Pets and animals: Yes Pets and animals: dog(s) Sexually active: No Do you think of yourself as: straight/heterosexual Current gender identity: female What is your relationship status?: How often do you talk on the phone with friends or family?: three or more times per week How often do you get together with friends or relatives?: three or more times per week Do you belong to any clubs or organized social groups?: no Panel score (0-1 are the most socially isolated patients): 1 What type of physical activity do you participate in: none Special juan needs: No Seatbelt use: sometimes Helmet use: No Drive intox or ride w/intox transit driver: No Do you feel safe at home: Yes Do you feel safe in your relationship?: Yes Additional Social history: Lives with Son on [address] Sign Out Sign Out Data: Sign Out Comment: Patient has intermittent bronchospasm, likely associated with new medication, Ellipta. Has had one while here, responded well to duoneb. No beds upstairs currently, possibly one at 7pm but iwll need to be monitored and treated PRN. PRN order for neb ordered. Patient on 2LNC baseline. Last updated by Khadra Long PA at 07/05/24 14:23
--- NOTE | 2024-07-05 09:45 | DI.CT_ITS ---
Exam(s) CT THORAX ABDOMEN CTA EXAM: CT THORAX ABDOMEN CTA CLINICAL HISTORY: back pain, SOB. TECHNIQUE: Imaging Protocol: Axial CT angiography was performed with multi-slice acquisition and mu lti-planar and/or 3D reconstructions. CONTRAST MATERIAL: Intravenous: Omnipaque 350 Contrast volume:100 ml COMPARISON: CT CT CHEST PE CTA from 05/30/[address] CHEST PE CTA from 06/24/2024 FINDINGS: CHEST: Pulmonary Arteries: No evidence of filling defects to suggest pulmonary emboli. Tracheobronchial tree: No bronchiectasis or mucus plugging. Mediastinum and Amberly: No changes small mediastinal hilar lymph nodes. Pulmonary parenchyma: No consolidation severe emphysematous changes. Stable scarring and adjacent nodule in the right upper lobe. Densities in the superior segment of the right lower lobe appear sta ble from May 2024 but new compared with 29 May 2022. Pleura: No effusion. No pneumothorax. Heart: The heart is notdilated. Moderate coronary artery calcifications are seen. Aorta: Thoracic aorta non-dilated. No dissection. Atherosclerotic changes. Bones: Unremarkable for age. Tubes, Catheters, and Lines: None. Soft tissues: Unremarkable. ABDOMEN and PELVIS: Liver: Normal size. Normal density. No suspicious measurable mass. Portal, Superior Mesenteric, and Splenic Veins: Unremarkable. Gallbladder and Biliary Tract: No radiodense calculus. No biliary dilatation. Pancreas: Normal density, no abnormal calcifications or inflammatory process. Spleen: Normal. Adrenals: No masses seen. Kidneys: Normal size, contour and axis. No radiodense stones. No obstructive uropathy. No masses seen . Vasculature: Abdominal aorta non-dilated. No dissection. Moderate atherosclerotic changes. Katt c axis is heavily calcified and shows severe stenosis at the origin. SMA is patent. Calcification a t the origin of the right renal artery causing moderate stenosis. Left renal arteries patent. Moder ate stenosis secondary to heavy calcification of the distal common iliac arteries. Bowel: No obstruction or bowel wall thickening. Appendix is unremarkable. Diverticulosis. Peritoneal Cavity: No ascites, collection or mesenteric inflammatory response. Lymph Nodes: Within normal limits. Soft Tissues: Unremarkable. Bones: Advanced degenerative changes in the lumbar spine. Mild scoliosis. IMPRESSION: 1. No evidence of aortic dissection. 2. Stable area of scarring in the left upper lobe. Stable scarring and nodule in the superior segmen t of the right lower lobe compared with recent chest CTs but this is new from 2021. Malignancy not e xcluded. Follow-up recommended. 3. No acute abdominal or pelvic process. 4. Atherosclerotic changes throughout. Severe stenosis of the celiac axis. Moderate stenosis of the right renal artery and common iliac arteries. Unexpected findings RADIATION DOSE DELIVERED: Total DLP Total DLP DATA REPOSITORY: All CT scans at this facility are submitted to the National Radiology Data Registry (NRDR) Dose Index Registry (DIR) with the [employer] (A[employer]). RADIATION OPTIMIZATION: All CT scans at this facility use at least one of these dose optimization te chniques: automated exposure control; mA and/or kV adjustment per patient size (includes targeted exa ms where dose is matched to clinical indication); or iterative reconstruction.
--- NOTE | 2024-07-05 09:45 | RT.EKG_ITS ---
APPROVED REPORT Exam: Resting ECG Reason for Exam: back pain Patient Location: E HR:83 bpm ECG Measurements Heart Rate 83 AXIS CA 170 P 81 QRSd 89 QRS 105 QT 393 T [id number] QTc 456 Conclusion Sinus rhythm...normal P axis, V-rate 60- 99 Atrial premature complexes...SV complexes w/ short R-R intvls Right axis deviation...QRS axis ( 91,269) Anteroseptal infarct, age indeterminate...Q >35mS, T neg, V1-V2
[2024-07-05 09:58] LABS: Source Nasal/Nares
[2024-07-05 10:01] LABS: Abs Immature Grans 0.11 10^3/uL (0.0-0.06); Absolute Basophil Count 0.06 10^3/uL (0.0-0.2); Absolute Eosinophil Count 0.35 10^3/uL (0.0-0.7); Absolute Lymphocyte Count 0.35 10^3/uL (1.2-3.4); Basophils % 0.4 %; Eosinophils % 2.3 %; HCT 40.9 % (36.0-46.0); HGB 12.3 g/dL (11.2-15.7); Immature Grans % 0.7 %; Lymphocytes % 2.3 %; MCH 27.3 pg (27.0-33.0); MCHC 30.1 % (32.0-36.0); MCV 91 fL (80-95); MPV 9.2 fL (8.0-11.0); Monocytes % 6.7 %; Neutrophils % 87.6 %; Platelet Count 473 10^3/uL (130-400); RBC 4.51 10^6/uL (3.93-5.22); RDW-SD 59.5 fL; WBC 15.18 10^3/uL (4.4-10.8)
[2024-07-05 10:02] LABS: Absolute Monocyte Count 1.02 10^3/uL (0.1-0.8)
[2024-07-05 10:03] LABS: BE (Venous) 7 mmol/L (-2-3); HCO3 (Venous) 33 mmol/L (23-28); O2 Sat (Venous) 75 %; TCO2 (Venous) 31 mmol/L (24-29); pH (Venous) 7.31 (7.31-7.41); pO2 (Venous) 44 mmHg
[2024-07-05 10:05] LABS: pCO2 (Venous) 67 mmHg (41-51)
[2024-07-05 10:16] LABS: INR 0.9 (0.9-1.1); PTT Activated 23.5 sec (23.6-32.8); Prothrombin Time 9.4 sec (9.1-11.1)
[2024-07-05] MEDS: Omnipaque 350 MG/ML 100 ML BTL IJ (10:18)
[2024-07-05] MEDS: Normal Saline - Diluent 50 ML VIAL IJ (10:18)
[2024-07-05 10:24] LABS: ALT 48 U/L (14-59); AST 69 U/L (15-37); Albumin 3.7 g/dL (3.4-5.0); Alkaline Phosphatase 127 U/L (46-116); Anion Gap 3.9 mmol/L (3-11); BUN 15 mg/dL (7-18); Bilirubin, Total 0.37 mg/dL (0.2-1.0); CO2 33.1 mmol/L (21.0-32.0); Calcium 9.1 mg/dL (8.5-10.1); Chloride 100 mmol/L (98-107); Estimated GFR 59.12 (mL/min/1.73m2); Glucose 179 mg/dL (74-106); Magnesium 2.1 mg/dL (1.8-2.4); Potassium 4.2 mmol/L (3.5-5.1); Sodium 137 mmol/L (136-145); Total Protein 7.6 g/dL (6.4-8.2); Troponin I 15 ng/L (<or=51)
[2024-07-05 10:31] LABS: COVID-19 PCR Negative (Negative)
[2024-07-05] MEDS: Lactated Ringers 500 ML 250 ML IV (10:41)
--- NOTE | 2024-07-05 11:00 | DI.VRAD_ITS ---
PROCEDURE INFORMATION: Exam: CTA Chest With Contrast CTA Abdomen With Contrast Exam date and time: 07/05/2024 10:19 AM Age: 73 years old Clinical indication: Other: Back pain, SOB TECHNIQUE: Imaging protocol: Computed tomographic angiography of the chest with contrast. Exam focused on the arteries. Computed tomographic angiography of the abdomen with contrast. Exam focused on the arteries. 3D rendering (Not supervised by radiologist): MIP and/or 3D reconstructed images were created by the technologist. Radiation optimization: All CT scans at this facility use at least one of these dose optimization techniques: automated exposure control; mA and/or kV adjustment per patient size (includes targeted exams where dose is matched to clinical indication); or iterative reconstruction. Contrast material: OMNI 350; Contrast volume: 100 ml; Contrast route: INTRAVENOUS (IV); COMPARISON: CT CHEST PE CTA 06/24/2024 11:49 AM FINDINGS: VASCULATURE: Pulmonary arteries: Normal. No pulmonary emboli. Aorta: Moderate aortic atherosclerosis. No aortic aneurysm or dissection. Moderate coronary artery calcification. Celiac trunk and mesenteric arteries: There is heavy calcification and severe stenosis at the origin of the celiac axis. SMA origin is widely patent. Renal arteries: There is calcification and least moderate stenosis of the right renal artery origin. The left renal artery is widely patent. Left iliac arteries: Heavy atherosclerosis of the left iliac artery. There is at least moderate stenosis of the distal common iliac artery just proximal to the bifurcation. CHEST: Lungs: The lungs are severely emphysematous. There is scarring in the right apex which appears unchanged from previous exam. No new focal infiltrate or nodule. Pleural spaces: Unremarkable. No pneumothorax. No pleural effusion. Heart: Unremarkable. No cardiomegaly. No pericardial effusion. ABDOMEN AND PELVIS: Liver: No mass. Gallbladder and biliary ducts: Unremarkable. No calcified stones. No ductal dilation. Pancreas: Unremarkable. No mass. No ductal dilation. Spleen: Unremarkable. No splenomegaly. Adrenal glands: Unremarkable. No mass. Kidneys: Unremarkable kidneys. No solid mass. No hydronephrosis. Stomach and bowel: Unremarkable. No obstruction. No mucosal thickening. Intraperitoneal space: Unremarkable. No free air. No significant fluid collection. Lymph nodes: There are small mediastinal and hilar lymph nodes. The most prominent in the right hilum measures 2.3 cm. It appears similar to the previous CT. Moderate atherosclerosis of the right iliac artery. No severe stenosis or aneurysm. Bones/joints: Unremarkable. No acute fracture. Soft tissues: Unremarkable. IMPRESSION: No evidence of aortic aneurysm or dissection. There is fairly extensive atherosclerosis. There is stenosis at the origin of the celiac axis and of the left common iliac artery. Dictated and Authenticated by: Salvatore Aguilar MD. Ordering:YARA Gaviria MD
[2024-07-05 11:50] LABS: Troponin I 13 ng/L (<or=51)
[2024-07-05] MEDS: Albuterol/Ipratropium 3 ML UPD VIAL UPD ×4 (13:08→22:29)
--- NOTE | 2024-07-05 13:12 | RESPIRATORY ---
Addendum entered by Annabel Fragoso 07/05/24 15:46: 1540 Pt states her breathing is feeling slightly tight and lung sounds are tight. Pt given PRN Duoneb. Pt breath sounds increased post tx with wheezing throughout. Original Note: 07/01/2024 1146 Called to ED to assess pt. Pt in respiratory distress taking Duoneb/normal saline mix when this RT arrived. Per report pt's condition had improved from the time I was paged till a few minutes later dionna I arrived. Pt given undiluted Duoneb and had tight breath sounds. Continuous albuterol was prepared by this RT; by the time I returned to the room, pt appeared almost back to baseline and reported she did not feel her breathing was tight; lung sounds had improved and continuous was held. 1321 Pt reports and adverse reaction to taking her new med, Incruse Ellipta, for the first time this morning. Pt reports feeling a freezing sensation in the bases of her lungs, followed by pain that becomes intense to the point where she feels like she is going to pass out, followed by severe SOB. This process has occured 3 times this morning since taking the Ellipta, one time witnessed in the ED. Pt states these events last up to 30 minutes and in between these events pt feels back to baseline. During an event on the way to the hospital pt thought she was going to . Pt has diminished breath sound with scattered wheeze, PRN Duoneb given. Post tx breath sounds improved, fine crackles in the LLL, occasional wheeze in the AMELIA, clear breath sounds in the RUL, insp wheeze in the RLL
[2024-07-05 14:38] LABS: Troponin I 14 ng/L (<or=51)
[2024-07-05] MEDS: methylPREDNISolone SUCC 125 MG VIAL IVP (15:50)
--- NOTE | 2024-07-05 17:17 | HPE_ITS ---
Date of service: 07/05/24 Time of Service: 14:00 Assessment and Plan Assessment and plan (1) Acute bronchospasm: Status: Acute Assessment and plan: secondary to Incruse Ellipta (umeclidinium) treating with IV steroids and diphenhydramine support with duonebs q4h likely can be considered for home in am on po steroid wean and diphenydramine (2) Adverse effect of inhaled corticosteroid: Status: Acute Assessment and plan: secondary to Incruse Ellipta (umeclidinium) treating with IV steroids and diphenhydramine, discussed my plan of treatment with support with duonebs q4h likely can be considered for home in am on po steroid wean and diphenydramine may benefit from new nebulizer device at home, per her description of her device working intermittently (3) Chronic obstructive lung disease: Status: Chronic Assessment and plan: Near end stage COPD No exacerbation at this time Discussed with RT regarding neb therapy. Qualifiers: COPD type: emphysema Emphysema type: unspecified Qualified Code(s): J 43.9 - Emphysema, unspecified (4) Emphysema lung: Status: Acute Assessment and plan: stable at this time. Advanced near end stage COPD History of Present Illness History of Present Illness Chief Complaint: breathlessness following use of new medication Narrative: Clinical course reviewed including notes, orders, labs, vitals, meds, imaging, and cultures. Care is discussed with primary ED provider 73 yo female with near end stage COPD started on several new medications by her doctor of chiropractic. Today she traveled to [facility] with her son shortly after taking the first dosing of incruse ellipta. About a half hour after taking it she began to experience severe and unusual chest pain and had breathlessness. this pain migrated to her back and she came to the ED. She was evaluated and given repeated duonebs, but no steroids nor histamine blockers. She underwent a CT angiogram of the chest to evaluate the back pain with concern for aortic dissection. The study was negative and showed advanced severe emphysema, no pneumonia. 5 hours after presentation Hospitalist service called to admit patient and hospitalist ordered IV Methyprednisolone. She denies chills, fever, chills, nausea, vomiting or diarrhea. She lives at home with 2 dogs. She lives some 40 miles away from this facility. She states her nebulizer at home does not work well. She would like help getting a new one. There are reports that she was to be evaluated for palliative care soon. Review of Systems Narrative: A 14 point review of systems was performed and negative except as noted below and in the HPI. [facility] All Active Problems (Updated 07/05/24 @ 17:48 by Dane Mckee DO) Emphysema lung (Acute) Adverse effect of inhaled corticosteroid (Acute) Acute bronchospasm (Acute) Goals of care, counseling/discussion (Acute) Hypercapnic respiratory failure (Acute) Right ventricular failure (Acute) Pulmonary infiltrates (Acute) Pulmonary hypertension (Acute) Chronic hypoxic respiratory failure (Acute) Sacral decubitus ulcer (Acute) Uvular swelling (Acute) Anemia (Chronic) Chronic obstructive lung disease (Chronic) h/o tobacco use, quit 2008 Heart failure with preserved ejection fraction (HFpEF, >= 50%) (Acute) CAP (community acquired pneumonia) (Acute) COPD exacerbation (Acute) Cervical arthritis with myelopathy (Acute) Arthritis (Acute 02/10/13) Osteoporosis (Acute 01/14/08) Tachycardia (Chronic) GERD (gastroesophageal reflux disease) (Chronic) Medical History GI bleed Hypomagnesemia Bilateral lower extremity edema Acute respiratory failure with hypoxia HTN (hypertension) COVID-[address] Tobacco dependence due to cigarettes Quit smoking when she was 59 years old COVID-19 -associated with COPD exacerbation Parotid mass Resolved after 3 months without intervention Acute on chronic respiratory failure with hypoxia and hypercapnia Acute on chronic diastolic CHF (congestive heart failure) CAP (community acquired pneumonia) GERD (gastroesophageal reflux disease) HTN (hypertension) Surgical History Endoscopic Carpal Tunnel release (03/31/13) Left 7.2.13 Family History Mother Essential hypertension Hyperlipidemia Adopted Dementia Father Heart disease Neoplasm LUNG Lung cancer Sister No problems noted. Sister No problems noted. Brother No problems noted. Brother No problems noted. Maternal Grandfather Stroke Paternal Grandfather Heart disease Maternal Grandmother Heart disease Paternal Grandmother Stroke Son Diabetes Essential hypertension Daughter No problems noted. Social History Smoking/Tobacco Use Status: Former Tobacco Use tobacco type: cigarettes Quit Date: 09/30/13 Tobacco: How many years used: 50 Second Hand Exposure: Yes Smoking risk assessment performed?: Yes Alcohol Intake: never Drug use: Never Substance use type: does not use Counseling given: No Counseling provided: none Caregiver/Support person: No Household members: family Housing: house Communication Needs: None Do you need help understanding health information?: Never Pets and animals: Yes Pets and animals: dog(s) Sexually active: No Do you think of yourself as: straight/heterosexual Current gender identity: female What is your relationship status?: How often do you talk on the phone with friends or family?: three or more times per week How often do you get together with friends or relatives?: three or more times per week Do you belong to any clubs or organized social groups?: no Panel score (0-1 are the most socially isolated patients): 1 What type of physical activity do you participate in: none Special juan needs: No Seatbelt use: sometimes Helmet use: No Drive 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 Do you feel safe at home: Yes Do you feel safe in your relationship?: Yes Additional Social history: Lives with Son on [facility] Female Reproductive History Menstrual Menopause type: natural Meds Allergies and Home Medications Allergies Allergy/AdvReac Type Severity Reaction Status Date / Time lorazepam (From Ativan) Allergy Severe Anaphylaxis Verified 06/30/24 10:57 diltiazem Allergy Intermediate LE and Verified 06/30/24 10:57 Facial Edema hydrochlorothiazide Allergy Mild rash Verified 06/30/24 10:57 Sulfa (Sulfonamide Allergy Unknown Other (See Verified 06/30/24 10:57 Antibiotics) Comment) umeclidinium (From Incruse AdvReac Severe Anaphylaxis Verified 07/05/24 17:13 Ellipta) metoprolol AdvReac Intermediate Fluid Verified 06/30/24 10:57 Retention lisinopril AdvReac Mild did not Verified 06/30/24 10:57 feel well Home Medications ?Medication ?Instructions ?Recorded ?Confirmed ?Type acetaminophen 500 mg tablet 1,000 mg PO PRN PRN 10/23/19 07/05/24 History albuterol sulfate 90 mcg/actuation 2 puff inhalation Q6H PRN #8.5 06/07/22 07/05/24 Rx aerosol inhaler grams ipratropium 0.5 mg-albuterol 3 mg 3 ml inhalation QID #180 mL 06/02/24 07/05/24 Rx (2.5 mg base)/3 mL nebulization soln amlodipine 10 mg tablet 10 mg PO BID #180 tabs 06/08/24 07/05/24 Rx benzonatate 100 mg capsule 100 mg PO BID PRN cough #30 caps 06/08/24 07/05/24 Rx digoxin 125 mcg (0.125 mg) tablet 125 mcg PO QAM #90 tabs 06/08/24 07/05/24 Rx esomeprazole magnesium 40 mg 40 mg PO DAILY #90 caps 06/08/24 07/05/24 Rx capsule,delayed release fluticasone 250 mcg-salmeterol 50 1 inh inhalation BID #3 ea 06/08/24 07/05/24 Rx mcg/dose blistr powdr for inhalation (Advair Diskus) furosemide 20 mg tablet See Rx Instructions .Route 06/08/24 07/05/24 Rx .COMPLEX #135 tabs ipratropium 20 mcg-albuterol 100 1 puff inhalation QID #12 grams 06/08/24 07/05/24 Rx mcg/actuation mist for inhalation (Combivent Respimat) montelukast 10 mg tablet 10 mg PO DAILY #90 tab-caps 06/08/24 07/05/24 Rx docusate sodium 100 mg capsule 100 mg PO DAILY #30 caps 06/22/24 07/05/24 Rx (Colace) ferrous sulfate 325 mg (65 mg 325 mg PO DAILY #30 tabs 06/22/24 07/05/24 Rx iron) tablet (iron) guaifenesin 600 mg tablet, 600 mg PO Q12H PRN #10 tabs 06/22/24 07/05/24 Rx extended release 12 hr (Mucinex) roflumilast 500 mcg tablet 500 mcg PO DAILY #90 tabs 06/30/24 07/05/24 Rx umeclidinium 62.5 mcg/actuation 1 inh inhalation DAILY #90 ea 07/03/24 07/05/24 Rx blister powder for inhalation (Incruse Ellipta) Exam Narrative Exam Narrative: Patient is evaluated in the Emergency Department. Patient is alert and oriented x 3 and in no acute distress HEENT: Neck supple, MM pink and moist, conjunctiva non-injected, sclera non- icteric, + arcus senilius bilaterally. Pupils equal and reactive to light symmetrically, no JVD, no A waves. No thyromegaly. No carotid bruit CHEST: Bilaterally symmetrical with inspiration and expiration. No use of accessory muscles of respiration. No nasal flaring. RESP: Shallow air exchange bilateraly reflective of low tidal volume, Clear to auscultation bilaterally, no rales, rhonchi or wheeze, no pleural friction rub, no post-tussive crackles or apical rales. COR: RRR, normal S1, S2, distant tones, no rub or gallop ABDOMEN: Soft, non tender diffusely, normally active bowel sounds diffusely, No hepatosplenomegaly, No abdominal bruit, no masses, no tenderness on deep abdominal palpation. G/U: deferred Rectal: deferred MUSCULOSKELETAL: Bilaterally symmetrical, no muscle belly tenderness or mass DERMIS: Skin warm and dry, no ulcers or rashes, EXTREMITIES: No cyanosis, clubbing or edema, no gross deformities of the large or small joints of the upper or lower extremities. + bilateral dense palmar eythema (denies ETOH intake) NEUROLOGICAL: Cranial nerves intact II-XII without notable deficit, No peripheral neurosensory or motor deficits noted. LYMPH: No anterior or posterior cervical, no supraclavicular, No axillary, no epitrochlear or femoral lymphadenopathy. Results Labs 07/05/24 09:53 07/05/24 09:53 Labs: Laboratory Results - last 24 hr 07/05/24 07/05/24 07/05/24 09:53 09:54 11:20 WBC 15.18 H RBC 4.51 Hgb 12.3 Hct 40.9 MCV 91 MCH 27.3 MCHC 30.1 L RDW 18.0 H Plt Count 473 H MPV 9.2 Immature Gran % 0.7 Neutrophils % 87.6 Lymphocytes % 2.3 Monocytes % 6.7 Eosinophils % 2.3 Basophils % 0.4 Nucleated RBC % 0.0 Absolute Neutrophils 13.30 H Absolute Lymphocytes 0.35 L Absolute Monocytes 1.02 H Absolute Eosinophils 0.35 Absolute Basophils 0.06 PT 9.4 INR 0.9 APTT 23.5 L VBG pH 7.31 VBG pCO2 67 H* VBG pO2 44 VBG HCO3 33 H VBG Total CO2 31 H VBG O2 Saturation 75 VBG Base Excess 7 H VBG Lactate 2.0 H Sodium 137 Potassium 4.2 Chloride 100 Carbon Dioxide 33.1 H Anion Gap 3.9 BUN 15 Creatinine 1.0 Est GFR (CKD-EPI 2020) 59.12 Glucose 179 H Calcium 9.1 Magnesium 2.1 Total Bilirubin 0.37 AST 69 H ALT 48 Alkaline Phosphatase 127 H Troponin I 15 13 Total Protein 7.6 Albumin 3.7 COVID-19 Source Nasal/Nares SARS-CoV-2 (PCR) Negative 07/05/24 14:16 WBC RBC Hgb Hct MCV MCH MCHC RDW Plt Count MPV Immature Gran % Neutrophils % Lymphocytes % Monocytes % Eosinophils % Basophils % Nucleated RBC % Absolute Neutrophils Absolute Lymphocytes Absolute Monocytes Absolute Eosinophils Absolute Basophils PT INR APTT VBG pH VBG pCO2 VBG pO2 VBG HCO3 VBG Total CO2 VBG O2 Saturation VBG Base Excess VBG Lactate Sodium Potassium Chloride Carbon Dioxide Anion Gap BUN Creatinine Est GFR (CKD-EPI 2020) Glucose Calcium Magnesium Total Bilirubin AST ALT Alkaline Phosphatase Troponin I 14 Total Protein Albumin COVID-19 Source SARS-CoV-2 (PCR) Last Vital Signs Temp 36.2 C L 07/05/24 09:15 Pulse 99 H 07/05/24 15:33 Resp 39 H 07/05/24 15:33 BP 145/61 H 07/05/24 12:46 Pulse Ox 92 07/05/24 15:33 Time Spent Time spent with Patient: 55-74 minutes Time was spent: preparing to see the patient(eg.review tests), obtaining and/or reviewing separately otained hiistory, ordering medications,tests, procedures, referring, communicating with other health patient care technician, indepentently interpreting results, counseling the patient and care coordination
--- NOTE | 2024-07-05 17:37 | NUR.NOTE ---
called DR. Mckee for order clarification on q4 hour benedryl order. explained to this technical document writer that we are treating an allergic reaction and this is part of the course of treatment This technical document writer continued to question the dosing due to the cumulative amount of benedryl the patient would receive. is aware and insisted that in coordination with steroid therapy, benedryl would treat the sensitivity to the medication.
[2024-07-05] MEDS: amLODIPine 10 MG TAB PO (20:56)
--- NOTE | 2024-07-05 21:24 | W.PC.ACHO ---
Registration Status: Primary Language: Preferred Language: ED Information & Data Chief Complaint Allergic 07/05/24 09:43 Triage Note Pt started on a new inhaler 07/05/24 09:15 disc today and another new medication 2 days ago- now feels like cramping in her lungs Medical / Surgical History (Last Reviewed 07/05/24 @ 17:26 by Dane Mckee DO) GI bleed Hypomagnesemia Bilateral lower extremity edema Acute respiratory failure with hypoxia HTN (hypertension) COVID-[address] Tobacco dependence due to cigarettes COVID-19 Parotid mass Acute on chronic respiratory failure with hypoxia and hypercapnia Acute on chronic diastolic CHF (congestive heart failure) CAP (community acquired pneumonia) GERD (gastroesophageal reflux disease) HTN (hypertension) (Last Reviewed 07/05/24 @ 17:26 by Dane Mckee DO) Endoscopic Carpal Tunnel release (03/31/13) Most Recent Vital Signs Temperature 36.2 C L 07/05/24 09:15 Temperature Source Temporal Artery Scan 07/05/24 09:15 Pulse 83 07/05/24 20:16 Pulse 105 H 07/05/24 20:20 Respiratory Rate 28 H 07/05/24 20:20 Respiratory Effort Short of Breath, Labored, Accessory Muscle Use, Incrsd Work of Breathing 07/05/24 10:00 Blood Pressure 143/45 H 07/05/24 20:16 Blood Pressure Mean 80 07/05/24 20:16 Pulse Oximetry 93 07/05/24 20:20 Oxygen Delivery Method Nasal Cannula 07/05/24 18:13 Oxygen Flow Rate 2 07/05/24 18:13 Pain Level 10 07/05/24 09:15 Allergies lorazepam (From Ativan) Allergy (Severe, Verified 06/30/24 10:57) Anaphylaxis diltiazem Allergy (Intermediate, Verified 06/30/24 10:57) LE and Facial Edema hydrochlorothiazide Allergy (Mild, Verified 06/30/24 10:57) rash Sulfa (Sulfonamide Antibiotics) Allergy (Unknown, Verified 06/30/24 10:57) Other (See Comment) umeclidinium (From Incruse Ellipta) Adverse Reaction (Severe, Verified 07/05/24 17:13) Anaphylaxis extreme breathlessness metoprolol Adverse Reaction (Intermediate, Verified 06/30/24 10:57) Fluid Retention lisinopril Adverse Reaction (Mild, Verified 06/30/24 10:57) did not feel well Precautions Isolation Standard precaution 07/05/24 09:19 Active Medications Generic Name Dose Route Start Last Admin Trade Name Freq PRN Reason Stop Dose Admin Albuterol/Ipratropium 3 ml 07/05/24 13:06 07/05/24 15:33 Albuterol/Ipratropium 3 Ml Upd Vial UPD 3 ml Q3H PRN PRN Administration Albuterol/Ipratropium 3 ml 07/05/24 18:00 07/05/24 18:13 Albuterol/Ipratropium 3 Ml Upd Vial UPD 3 ml Q4H WALTER Administration Amlodipine Besylate 10 mg 07/05/24 20:00 07/05/24 20:56 Amlodipine 10 Mg Tab PO 10 mg BID WALTER Administration Diphenhydramine HCl 25 mg 07/05/24 17:15 07/05/24 17:50 Diphenhydramine 25 Mg Cap PO Not Given Q4H WALTER Diphenhydramine HCl 50 mg 07/05/24 17:13 07/05/24 17:50 Diphenhydramine 50 Mg/Ml Vial IVP 07/05/24 17:14 Not Given STAT STA Enoxaparin Sodium 30 mg 07/05/24 18:00 07/05/24 20:23 Enoxaparin 30 Mg/0.3 Ml Syr SC Not Given Q24H WALTER Iohexol 100 ml 07/05/24 10:30 07/05/24 10:18 Omnipaque 350 Mg/Ml 100 Ml Btl IJ 08/04/24 23:59 100 ml DIRECTED WALTER Administration Methylprednisolone Sodium Succinate 125 mg 07/05/24 15:30 07/05/24 15:50 Methylprednisolone Succ 125 Mg Vial IVP 125 mg Q8H WALTER Administration Sodium Chloride 50 ml 07/05/24 10:30 07/05/24 10:18 Normal Saline - Diluent 50 Ml Vial IJ 50 ml .FOR DI USE WALTER Administration IV IV Catheter Type [Left Saline Lock Antecubital] IV Catheter Gauge [Left 18 Antecubital] Diet Orders Category Date Time Status Regular/Normal [DIET] Nutrition 07/05/24 Dinner Active Diagnostics 07/05/24 07/05/24 07/05/24 Range/Units 14:16 11:20 09:54 WBC (4.4-10.8) 10^3/uL RBC (3.93-5.22) 10^6/uL Hgb (11.2-15.7) g/dL Hct (36.0-46.0) % MCV (80-95) fL MCH (27.0-33.0) pg MCHC (32.0-36.0) % RDW (11.7-14.6) % Plt Count (130-400) 10^3/uL MPV (8.0-11.0) fL Immature Gran % % Neutrophils % % Lymphocytes % % Monocytes % % Eosinophils % % Basophils % % Nucleated RBC % (0.0-0.3) % Absolute Neutrophils (1.2-6.7) 10^3/uL Absolute Lymphocytes (1.2-3.4) 10^3/uL Absolute Monocytes (0.1-0.8) 10^3/uL Absolute Eosinophils (0.0-0.7) 10^3/uL Absolute Basophils (0.0-0.2) 10^3/uL PT (9.1-11.1) sec INR (0.9-1.1) APTT (23.6-32.8) sec VBG pH (7.31-7.41) VBG pCO2 (41-51) mmHg VBG pO2 mmHg VBG HCO3 (23-28) mmol/L VBG Total CO2 (24-29) mmol/L VBG O2 Saturation % VBG Base Excess (-2-3) mmol/L VBG Lactate (0.6-1.4) mmol/L Sodium (136-145) mmol/L Potassium (3.5-5.1) mmol/L Chloride (98-107) mmol/L Carbon Dioxide (21.0-32.0) mmol/L Anion Gap (3-11) mmol/L BUN (7-18) mg/dL Creatinine (0.55-1.02) mg/dL Est GFR (CKD-EPI 2020) (mL/min/1.73m2) Glucose (74-106) mg/dL Calcium (8.5-10.1) mg/dL Magnesium (1.8-2.4) mg/dL Total Bilirubin (0.2-1.0) mg/dL AST (15-37) U/L ALT (14-59) U/L Alkaline Phosphatase (46-116) U/L Troponin I 14 13 (<or=51) ng/L Total Protein (6.4-8.2) g/dL Albumin (3.4-5.0) g/dL COVID-19 Source Nasal/Nares SARS-CoV-2 (PCR) Negative (Negative) 07/05/24 Range/Units 09:53 WBC 15.18 H (4.4-10.8) 10^3/uL RBC 4.51 (3.93-5.22) 10^6/uL Hgb 12.3 (11.2-15.7) g/dL Hct 40.9 (36.0-46.0) % MCV 91 (80-95) fL MCH 27.3 (27.0-33.0) pg MCHC 30.1 L (32.0-36.0) % RDW 18.0 H (11.7-14.6) % Plt Count 473 H (130-400) 10^3/uL MPV 9.2 (8.0-11.0) fL Immature Gran % 0.7 % Neutrophils % 87.6 % Lymphocytes % 2.3 % Monocytes % 6.7 % Eosinophils % 2.3 % Basophils % 0.4 % Nucleated RBC % 0.0 (0.0-0.3) % Absolute Neutrophils 13.30 H (1.2-6.7) 10^3/uL Absolute Lymphocytes 0.35 L (1.2-3.4) 10^3/uL Absolute Monocytes 1.02 H (0.1-0.8) 10^3/uL Absolute Eosinophils 0.35 (0.0-0.7) 10^3/uL Absolute Basophils 0.06 (0.0-0.2) 10^3/uL PT 9.4 (9.1-11.1) sec INR 0.9 (0.9-1.1) APTT 23.5 L (23.6-32.8) sec VBG pH 7.31 (7.31-7.41) VBG pCO2 67 H* (41-51) mmHg VBG pO2 44 mmHg VBG HCO3 33 H (23-28) mmol/L VBG Total CO2 31 H (24-29) mmol/L VBG O2 Saturation 75 % VBG Base Excess 7 H (-2-3) mmol/L VBG Lactate 2.0 H (0.6-1.4) mmol/L Sodium 137 (136-145) mmol/L Potassium 4.2 (3.5-5.1) mmol/L Chloride 100 (98-107) mmol/L Carbon Dioxide 33.1 H (21.0-32.0) mmol/L Anion Gap 3.9 (3-11) mmol/L BUN 15 (7-18) mg/dL Creatinine 1.0 (0.55-1.02) mg/dL Est GFR (CKD-EPI 2020) 59.12 (mL/min/1.73m2) Glucose 179 H (74-106) mg/dL Calcium 9.1 (8.5-10.1) mg/dL Magnesium 2.1 (1.8-2.4) mg/dL Total Bilirubin 0.37 (0.2-1.0) mg/dL AST 69 H (15-37) U/L ALT 48 (14-59) U/L Alkaline Phosphatase 127 H (46-116) U/L Troponin I 15 (<or=51) ng/L Total Protein 7.6 (6.4-8.2) g/dL Albumin 3.7 (3.4-5.0) g/dL COVID-19 Source SARS-CoV-2 (PCR) (Negative) Intake and Output - 24 Hour Total 07/05/24 09:11 thru 07/05/24 09:15 Weight 64.41 kg Falls Risk Assessment History of Falls Previous History 07/05/24 10:01 Contributing Factors Impairments,Medications 07/05/24 10:01 Ambulatory Aids Uses ambulatory device + 07/05/24 10:01 Tubes/Lines With any additional score 07/05/24 10:01 Gait Evaluation W/any additional score 07/05/24 10:01 Fall Total Score 91 07/05/24 10:01 Level of Risk Maximum Risk 07/05/24 10:01 Problems (Last Reviewed 07/05/24 @ 17:26 by Dane Mckee DO) Emphysema lung (Acute) Adverse effect of inhaled corticosteroid (Acute) Acute bronchospasm (Acute) Chronic obstructive lung disease (Chronic) Notes 07/05/24 17:37 Nursing Notes by Dahlia Díaz called DR. Mckee for order clarification on q4 hour benedryl order. explained to this investigative writer that we are treating an allergic reaction and this is part of the course of treatment This investigative writer continued to question the dosing due to the cumulative amount of benedryl the patient would receive. is aware and insisted that in coordination with steroid therapy, benedryl would treat the sensitivity to the medication. Initialized on 07/05/24 17:37 - END OF NOTE 07/05/24 13:12 Respiratory by Annabel Fragoso Addendum entered by Annabel Fragoso 07/05/24 15:46: 1540 Pt states her breathing is feeling slightly tight and lung sounds are tight. Pt given PRN Duoneb. Pt breath sounds increased post tx with wheezing throughout. Original Note: 07/01/2024 1146 Called to ED to assess pt. Pt in respiratory distress taking Duoneb/normal saline mix when this RT arrived. Per report pt's condition had improved from the time I was paged till a few minutes later dionna I arrived. Pt given undiluted Duoneb and had tight breath sounds. Continuous albuterol was prepared by this RT; by the time I returned to the room, pt appeared almost back to baseline and reported she did not feel her breathing was tight; lung sounds had improved and continuous was held. 1321 Pt reports and adverse reaction to taking her new med, Incruse Ellipta, for the first time this morning. Pt reports feeling a freezing sensation in the bases of her lungs, followed by pain that becomes intense to the point where she feels like she is going to pass out, followed by severe SOB. This process has occured 3 times this morning since taking the Ellipta, one time witnessed in the ED. Pt states these events last up to 30 minutes and in between these events pt feels back to baseline. During an event on the way to the hospital pt thought she was going to . Pt has diminished breath sound with scattered wheeze, PRN Duoneb given. Post tx breath sounds improved, fine crackles in the LLL, occasional wheeze in the AMELIA, clear breath sounds in the RUL, insp wheeze in the RLL Initialized on 07/05/24 13:12 - END OF NOTE v v v v v v v v v Sending and/or Receiving Nurses: Please use comment section below to note any information pertinent to the patient hand-off not included above. Information / Comments:Patient presented with bronchospam secondary to starting on Ellipta today.Patient had several episodes of bronochospasms while in the ER received numerous nebs. Report received from:
[2024-07-05] MEDS: Normal Saline 1,000 ML 30 ML IV (22:00)
--- NOTE | 2024-07-05 22:30 | RESPIRATORY ---
Pt. reported RT that she did not bring her home NIV machine due to unexpected admission to hospital. Stated she will be okay without it, currently on O2 of her baseline 2l/min. She uses 1LPM during resting and 2LPM during activity at home. DME is [employer].
[2024-07-06] VITALS (23 sets, daily range): BP systolic 129–150; BP diastolic 65–84; PULSE 80–140; RESP 2–30; TEMP 36.3–36.8; O2SAT 2–99
[2024-07-06] MEDS: Albuterol/Ipratropium 3 ML UPD VIAL UPD ×6 (02:03→22:15)
[2024-07-06] MEDS: methylPREDNISolone SUCC 125 MG VIAL 80 MG IVP ×3 (04:08→19:31)
[2024-07-06] MEDS: Normal Saline Flush 10 ML SYR IVP ×3 (04:09→19:31)
[2024-07-06 05:59] LABS: HCT 39.4 % (36.0-46.0); HGB 11.5 g/dL (11.2-15.7); MCH 26.9 pg (27.0-33.0); MCHC 29.2 % (32.0-36.0); MCV 92 fL (80-95); MPV 9.3 fL (8.0-11.0); Platelet Count 428 10^3/uL (130-400); RBC 4.28 10^6/uL (3.93-5.22); RDW 17.9 % (11.7-14.6); RDW-SD 60.1 fL
[2024-07-06 06:06] LABS: BUN 21 mg/dL (7-18); CREATININE 1.1 mg/dL (0.55-1.02); Calcium 9.4 mg/dL (8.5-10.1); Chloride 104 mmol/L (98-107); Estimated GFR 52.73 (mL/min/1.73m2); Glucose 163 mg/dL (74-106); Potassium 5.1 mmol/L (3.5-5.1); Sodium 140 mmol/L (136-145)
[2024-07-06] MEDS: Esomeprazole 40 MG CAPCR PO (08:34)
[2024-07-06] MEDS: amLODIPine 10 MG TAB PO ×2 (08:34→19:31)
[2024-07-06] MEDS: Digoxin 0.125 MG TAB PO (08:34)
[2024-07-06] MEDS: Furosemide 40 MG TAB PO (08:34)
[2024-07-06] MEDS: Budesonide/Formoterol 160/4.5 6 GM 60 PUFF INH IH ×2 (08:40→20:37)
--- NOTE | 2024-07-06 08:51 | W.PM.PROGNOT ---
Date of Service Date of service: 07/06/24 Time of Service: 08:51 Assessment and Plan Assessment and plan (1) Acute bronchospasm: Status: Acute Assessment and plan: secondary to Incruse Ellipta (umeclidinium) treating with IV steroids and diphenhydramine support with duonebs q4h likely can be considered for home in am on po steroid wean and diphenydramine (2) Adverse effect of inhaled corticosteroid: Status: Acute Assessment and plan: -presumed secondary to Incruse Ellipta (umeclidinium) -treating with IV steroids and Q4hr duonebs; patient declined diphenhydramine -may benefit from new nebulizer device at home, per her description of her device working intermittently (3) Chronic obstructive lung disease: Status: Chronic Assessment and plan: -Near end stage COPD -No exacerbation at this time -Discussed with RT regarding neb therapy. Qualifiers: COPD type: emphysema Emphysema type: unspecified Qualified Code(s): J43.9 - Emphysema, unspecified (4) Emphysema lung: Status: Acute Assessment and plan: -stable at this time. -Advanced near end stage COPD (5) Chronic respiratory failure: Status: Acute Assessment and plan: -patient has been on her baseline 2L NC since admission (6) Heart failure with preserved ejection fraction (HFpEF, >= 50%): Status: Acute Assessment and plan: -continue home digoxin, lasix (7) HTN (hypertension): Assessment and plan: -continue home amlodipine Qualifiers: Hypertension type: essential hypertension Qualified Code(s): I10 - Essential (primary) hypertension Subjective Subjective Interval history since last seen: Patient states that she is feeling better now but had a spell around 530 this morning. She believes that either 1 or both of the new inhaler medications that she was started on led to these exacerbations, and has requested she go back to her old regimen. Otherwise at this moment patient states that she is feeling better and has no complaints or concerns at this time. Exam Narrative Exam Narrative: Well-appearing older female sitting up in bed in no acute distress, baseline 2 L nasal cannula in place, heart regular rate rhythm, lungs diminished inspiratory effort but cough heard throughout bilateral upper and lower lung das, abdomen soft, nontender, nondistended Objective Last Vital Signs Temp 97.9 F 07/06/24 08:05 Pulse 92 H 07/06/24 08:34 Resp 22 07/06/24 08:05 BP 142/79 H 07/06/24 08:05 Pulse Ox 89 L 07/06/24 08:44 Laboratory Results - last 24 hr 07/05/24 07/05/24 07/05/24 09:53 09:54 11:20 WBC 15.18 H RBC 4.51 Hgb 12.3 Hct 40.9 MCV 91 MCH 27.3 MCHC 30.1 L RDW 18.0 H Plt Count 473 H MPV 9.2 Immature Gran % 0.7 Neutrophils % 87.6 Lymphocytes % 2.3 Monocytes % 6.7 Eosinophils % 2.3 Basophils % 0.4 Nucleated RBC % 0.0 Absolute Neutrophils 13.30 H Absolute Lymphocytes 0.35 L Absolute Monocytes 1.02 H Absolute Eosinophils 0.35 Absolute Basophils 0.06 PT 9.4 INR 0.9 APTT 23.5 L VBG pH 7.31 VBG pCO2 67 H* VBG pO2 44 VBG HCO3 33 H VBG Total CO2 31 H VBG O2 Saturation 75 VBG Base Excess 7 H VBG Lactate 2.0 H Sodium 137 Potassium 4.2 Chloride 100 Carbon Dioxide 33.1 H Anion Gap 3.9 BUN 15 Creatinine 1.0 Est GFR (CKD-EPI 2020) 59.12 Glucose 179 H Calcium 9.1 Magnesium 2.1 Total Bilirubin 0.37 AST 69 H ALT 48 Alkaline Phosphatase 127 H Troponin I 15 13 Total Protein 7.6 Albumin 3.7 COVID-19 Source Nasal/Nares SARS-CoV-2 (PCR) Negative 07/05/24 07/06/24 14:16 05:50 WBC 7.30 RBC 4.28 Hgb 11.5 Hct 39.4 MCV 92 MCH 26.9 L MCHC 29.2 L RDW 17.9 H Plt Count 428 H MPV 9.3 Immature Gran % Neutrophils % Lymphocytes % Monocytes % Eosinophils % Basophils % Nucleated RBC % Absolute Neutrophils Absolute Lymphocytes Absolute Monocytes Absolute Eosinophils Absolute Basophils PT INR APTT VBG pH VBG pCO2 VBG pO2 VBG HCO3 VBG Total CO2 VBG O2 Saturation VBG Base Excess VBG Lactate Sodium 140 Potassium 5.1 Chloride 104 Carbon Dioxide 31.0 Anion Gap 5.0 BUN 21 H Creatinine 1.1 H Est GFR (CKD-EPI 2020) 52.73 Glucose 163 H Calcium 9.4 Magnesium Total Bilirubin AST ALT Alkaline Phosphatase Troponin I 14 Total Protein Albumin COVID-19 Source SARS-CoV-2 (PCR) Time Spent with Patient Time Spent with Patient: >50 minutes Time was spent: preparing to see the patient(eg.review tests), obtaining and/or reviewing separately otained hiistory, ordering medications,tests, procedures, referring, communicating with other health respiratory care practitioner, indepentently interpreting results, counseling the patient and care coordination
--- NOTE | 2024-07-06 08:57 | RESPIRATORY ---
Selected Entries Pt has her own NIV machine. [email or web address] 150 Mode: iVAPS Target Rate: 15 Target Va: 4.0 L/min Avg Vt: 364 Min PS: 5 Max PS: 20 EPAP: 5 Set to Pt height of 64 MV: 5.5 Ti Min: 0.20 Ti Max: 1.50 Nasal Pillows: Medium No humidity No O2 bleed in at baseline DME: [facility] Oxygen: Baseline at rest: 1L Baseline with ambulation: 2L DME: [employer] - started 06/03/24
--- NOTE | 2024-07-06 09:43 | PDOC.CMIN ---
Date of service: 07/06/24 Time of Service: 13:40 Care Management Initial Assmt Initial Assessment Reason for Hospitalization: adverse reaction w/bronchospasm Functional Status/Living Situation Patient Presentation: Jackie was sitting up on the edge of her bed when CM met with her. She expressed frustration for being back in the hospital so soon, and discussed her follow up since discharge. She stated that she went to her pulmonology f/u, and was started on a new medication, which she had an adverse reaction to. She stated that she has her PCP follow up scheduled for 07/09 at 1:40pm; CM advised her not to cancel it today, as she is observation, so she may be able to return home within 48 hours, in which case she would be able to make it to this appointment. She also stated that COA was scheduled to meet her at home tomorrow at 9am; CM attempted to reach COA, and left a message to cancel that appt for her. Per report, she is being treated with steroids and Q4 duonebs, and she may be ready for discharge as early as tomorrow. CM will continue to follow. Town of Residence: [facility] Resides with: Child Significant Other/Family: Local Caregiver/Guardian: son, Vinh- provides support with most things; Jackie does her own personal care. 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[employer]) Instrumental Activities of Daily Living (ADLs): Requires support with Dishes/food prep, Groceries, Heat/Utilities, Laundry and Transportation Medications Medication Management: No Issues/Barriers identified Advance Directives Advance Directives: Do you have an Advance Directive: Y 02/10/13 10:22 AD On File at [facility]: Y 02/10/13 11:03 Date Asked 07/05/24 07/05/24 11:20 AD Date Reviewed 06/24/24 06/24/24 07:38 COLST On File at [facility] Yes 05/29/24 10:37 COLST Date Scanned 02/05/19 05/29/24 10:37 Code Status Resuscitation Status DNR/DNI Insurance Coverage/Financial Issues Insurance: [employer] Care Team Visit Care Team Role Provider Type Deven Roberto NP Primary Care Provider NURSE PRACTITIONER MARITA Benz Emergency Provider [employer] Dane Mckee, DO Admit Provider [facility] STAFF PHYSICIAN Attending Provider Discharge Potential Discharge Needs: PCP F/U Appt Anticipated Barriers to Discharge: None Identified Patient/Family Education Needs: Review discharge instructions, discuss Ask Me Three Transportation: Private vehicle Plan: Anticipate Jackie will return home once medically cleared. Her son will drive her home via private vehicle when ready. She will follow up with her PCP and discharge plan of care. CM will continue to follow. PFSH All Active Problems (Updated 07/06/24 @ 08:55 by Feng Regan MD) Chronic respiratory failure (Acute) Emphysema lung (Acute) Adverse effect of inhaled corticosteroid (Acute) Acute bronchospasm (Acute) Goals of care, counseling/discussion (Acute) Hypercapnic respiratory failure (Acute) Right ventricular failure (Acute) Pulmonary infiltrates (Acute) Pulmonary hypertension (Acute) Chronic hypoxic respiratory failure (Acute) Sacral decubitus ulcer (Acute) Uvular swelling (Acute) Anemia (Chronic) Chronic obstructive lung disease (Chronic) h/o tobacco use, quit 2008 Heart failure with preserved ejection fraction (HFpEF, >= 50%) (Acute) CAP (community acquired pneumonia) (Acute) COPD exacerbation (Acute) Cervical arthritis with myelopathy (Acute) Arthritis (Acute 02/10/13) Osteoporosis (Acute 01/14/08) Tachycardia (Chronic) GERD (gastroesophageal reflux disease) (Chronic) Medical History GI bleed Hypomagnesemia Bilateral lower extremity edema Acute respiratory failure with hypoxia HTN (hypertension) COVID-[address] Tobacco dependence due to cigarettes Quit smoking when she was 59 years old COVID-19 -associated with COPD exacerbation Parotid mass Resolved after 3 months without intervention Acute on chronic respiratory failure with hypoxia and hypercapnia Acute on chronic diastolic CHF (congestive heart failure) CAP (community acquired pneumonia) GERD (gastroesophageal reflux disease) HTN (hypertension) Surgical History Endoscopic Carpal Tunnel release (03/31/13) Left 7.2.13 Family History Mother Essential hypertension Hyperlipidemia Adopted Dementia Father Heart disease Neoplasm LUNG Lung cancer Sister No problems noted. Sister No problems noted. Brother No problems noted. Brother No problems noted. Maternal Grandfather Stroke Paternal Grandfather Heart disease Maternal Grandmother Heart disease Paternal Grandmother Stroke Son Diabetes Essential hypertension Daughter No problems noted. Social History Smoking/Tobacco Use Status: Former Tobacco Use tobacco type: cigarettes Quit Date: 09/30/13 Tobacco: How many years used: 50 Second Hand Exposure: Yes Smoking risk assessment performed?: Yes Alcohol Intake: never Drug use: Never Substance use type: does not use Counseling given: No Counseling provided: none Caregiver/Support person: No Household members: family Housing: house Communication Needs: None Do you need help understanding health information?: Never Pets and animals: Yes Pets and animals: dog(s) Sexually active: No Do you think of yourself as: straight/heterosexual Current gender identity: female What is your relationship status?: How often do you talk on the phone with friends or family?: three or more times per week How often do you get together with friends or relatives?: three or more times per week Do you belong to any clubs or organized social groups?: no Panel score (0-1 are the most socially isolated patients): 1 What type of physical activity do you participate in: none Special juan needs: No Seatbelt use: sometimes Helmet use: No Drive intox or ride w/intox delivery route driver: No Do you feel safe at home: Yes Do you feel safe in your relationship?: Yes Additional Social history: [facility] with [facility] Female Reproductive History Menstrual Menopause type: natural Readmission Within the Past 30 Days Yes or No: Yes Date of First Admission Date of 1st Admission: 06/24/24 Date of this Admission Date of Admission: 07/05/24 This admission was: Through ED Office Visit Since 1st Admission Have you seen your PCP in the office since discharge?: No Had an appointment Been Scheduled?: Yes Date of Scheduled Appointment: 07/09/24 Speicalist Appointments Have you seen any other specialist since your 1st Admission?: Yes Date you saw the Specialist: 06/30/24 Specialist Seen: Pulmonology I. Interview patient and/or Family Difficulty reaching your doctor or getting an office appt?: No Have you had trouble purchasing/ or taking medication?: No Have you had trouble with getting meals at home?: No Did you feel ready for discharge when you left the last time: Yes Were services received that you thought were set up on disch: Yes What services were received?: HH services; [facility]A How do you think you became sick enough to come back?: adverse reaction to new medication ED visits How many ED visits in the past 12 months: 3 Assessment for Readmission Summary of readmission circumstances, based upon interviews: Jackie returned to [facility] after experiencing a reaction to a new medication. She reported that she felt ready for discharge, and expressed frustration for being hospitalized again. Once she is medically cleared, she will return home with a resumption of HH RN, PT, [employer]. She will follow up with her PCP and her discharge plan of care. CM will continue to follow. SDOH(Care Management) Screening Will the Patient Participate in the Screening?: Declined to provide Do you worry about having a steady place to live?: no Problems where you live: no known problems In the past 12 months, have you had to go without electric, gas, oil or water in your home?: no Have you or anyone in your house had to go without enough food to eat?: no Has lack of transportation kept you from medical appointments or from doing things needed for daily living?: no Has anyone in your support network made you feel unsafe for any reason?: no
[2024-07-06] MEDS: Docusate Sodium 100 MG CAP PO (13:09)
[2024-07-06] MEDS: Acetaminophen 325 MG TAB PO ×2 (13:40→19:40)
[2024-07-06] MEDS: hydrOXYzine HCL 10 MG TAB PO (15:27)
[2024-07-06] MEDS: guaiFENesin 600 MG TABCR PO (19:40)
[2024-07-06] MEDS: Benzonatate 100 MG CAP PO (19:41)
[2024-07-07 03:19] VITALS: PULSE 114; RESP 16; O2SAT 94
[2024-07-07] MEDS: Levalbuterol 1.25 MG/3 ML UPD VIAL UPD (03:19)
[2024-07-07 03:29] VITALS: PULSE 114; RESP 18; O2SAT 100
[2024-07-07] MEDS: Normal Saline 1,000 ML 30 ML IV (04:48)
[2024-07-07] MEDS: methylPREDNISolone SUCC 125 MG VIAL 80 MG IVP ×2 (04:48→11:51)
[2024-07-07] MEDS: Budesonide/Formoterol 160/4.5 6 GM 60 PUFF INH IH (07:51)
[2024-07-07 07:53] VITALS: PULSE 130
[2024-07-07] MEDS: Digoxin 0.125 MG TAB PO (07:53)
[2024-07-07] MEDS: Esomeprazole 40 MG CAPCR PO (07:53)
[2024-07-07] MEDS: amLODIPine 10 MG TAB PO (07:53)
[2024-07-07] MEDS: Furosemide 20 MG TAB PO (07:54)
[2024-07-07] MEDS: Normal Saline Flush 10 ML SYR IVP (07:55)
[2024-07-07 07:57] VITALS: BP 122/56; PULSE 130; RESP 22; TEMP 36.5; O2SAT 96
[2024-07-07 07:58] VITALS: O2SAT 96
[2024-07-07] MEDS: Docusate Sodium 100 MG CAP PO (08:03)
[2024-07-07] MEDS: Acetaminophen 325 MG TAB PO (08:03)
--- NOTE | 2024-07-07 11:27 | PDOC.CMPRO ---
Date of service: 07/07/24 Time of Service: 11:27 Care Management Progress Note Discharge Potential Discharge Needs: PCP F/U Appt and Other (new nebulizer machine) Anticipated Barriers to Discharge: Other (order pending for nebulizer) Patient/Family Education Needs: Review discharge instructions, discuss Ask Me Three Transportation: Private vehicle Plan: Anticipate Jackie will return home once medically cleared, with a resumption of RN, PT, ACCIDENT REPORT CLERK. Her son will drive her home via private vehicle when ready. She will benefit from a new nebulizer machine, which has been ordered by her PCP office, and is pending. She will follow up with her PCP and discharge plan of care. CM will continue to follow. SDOH(Care Management) Screening Will the Patient Participate in the Screening?: Declined to provide Do you worry about having a steady place to live?: no Problems where you live: no known problems In the past 12 months, have you had to go without electric, gas, oil or water in your home?: no Have you or anyone in your house had to go without enough food to eat?: no Has lack of transportation kept you from medical appointments or from doing things needed for daily living?: no Has anyone in your support network made you feel unsafe for any reason?: no
[2024-07-07 12:03] LABS: Abs Immature Grans 0.13 10^3/uL (0.0-0.06); Absolute Basophil Count 0.02 10^3/uL (0.0-0.2); Absolute Lymphocyte Count 0.19 10^3/uL (1.2-3.4); Absolute Monocyte Count 0.31 10^3/uL (0.1-0.8); Absolute Neutrophil Count 16.38 10^3/uL (1.2-6.7); Basophils % 0.1 %; HCT 38.2 % (36.0-46.0); HGB 11.1 g/dL (11.2-15.7); Immature Grans % 0.8 %; Lymphocytes % 1.1 %; MCHC 29.1 % (32.0-36.0); MCV 93 fL (80-95); MPV 9.3 fL (8.0-11.0); Monocytes % 1.8 %; Neutrophils % 96.2 %; Platelet Count 388 10^3/uL (130-400); RBC 4.11 10^6/uL (3.93-5.22); RDW 18.4 % (11.7-14.6); RDW-SD 62.5 fL; WBC 17.03 10^3/uL (4.4-10.8)
[2024-07-07 15:32] VITALS: BP 104/60; PULSE 122; RESP 22; TEMP 36.4; O2SAT 96
--- NOTE | 2024-07-07 15:46 | W.PM.DS.N ---
Date of service: 07/08/24 Time of Service: 07:16 DS: Diagnosis Discharge Diagnosis (1) Acute bronchospasm: Status: Resolved (2) Adverse effect of inhaled corticosteroid: Status: Resolved (3) Chronic obstructive lung disease: Status: Chronic (4) Emphysema lung: Status: Acute (5) Chronic respiratory failure: Status: Acute (6) Heart failure with preserved ejection fraction (HFpEF, >= 50%): Status: Acute (7) HTN (hypertension): Discharge Plan Disposition Patient Disposition: Home Condition: Good Discharge Details Reason For Visit: adverse reaction w/bronchospasm, breathlessness Admit Date/Time: 07/05/24 17:04 Admit Provider: Dane Mckee Attending Provider: Dane Mckee Primary Care Provider: Deven Collier Hospital Course Hospital Course: Patient initially presented with concerns for adverse reaction to newly prescribed Incruse Ellipta which was held during hospitalization patient had significant improvement of her symptoms. Additionally, patient was having difficulty obtaining updated nebulizer unit as hers was over 30 years old. Due to the tremendous efforts of case management, they were able to facilitate appropriate paperwork being filled out and patient had a new nebulizer brought to her in the hospital prior to being discharged home where she will resume her previous inhaler regimen. Home Meds and New Rx's Prescriptions: New prednisone 20 mg tablet 40 mg PO DAILY Qty: 14 0RF Continued amlodipine 10 mg tablet 10 mg PO BID Qty: 180 3RF digoxin 125 mcg (0.125 mg) tablet 125 mcg PO QAM Qty: 90 4RF esomeprazole magnesium 40 mg capsule,delayed release(DR/EC) 40 mg PO DAILY Qty: 90 3RF fluticasone propion-salmeterol [Advair Diskus] 250-50 mcg/dose blister with device 1 inh Inhalation BID Qty: 3 4RF furosemide 20 mg tablet See Rx Instructions .ROUTE .COMPLEX Qty: 135 4RF Dose Instruction: TAKE 1 TABLET (20MG) BY MOUTH EVERY OTHER DAY ALTERNATING WITH TAKING 2 TABLETS (40MG) BY MOUTH EVERY OTHER DAY Rx Instructions: TAKE 1 TABLET (20MG) BY MOUTH EVERY OTHER DAY ALTERNATING WITH TAKING 2 TABLETS (40MG) BY MOUTH EVERY OTHER DAY montelukast 10 mg tablet 10 mg PO DAILY Qty: 90 3RF benzonatate 100 mg capsule 100 mg PO BID PRN (Reason: cough) Qty: 30 0RF roflumilast 500 mcg tablet 500 mcg PO DAILY Qty: 90 4RF acetaminophen 500 mg Tablet 1,000 mg PO PRN PRN albuterol sulfate 90 mcg/actuation HFA aerosol inhaler 2 puff inhalation Q6H PRNQty: 8.5 0RF ipratropium-albuterol 0.5 mg-3 mg(2.5 mg base)/3 mL solution for nebulization 3 ml inhalation QID Qty: 180 0RF guaifenesin [Mucinex] 600 mg tablet extended release 12hr 600 mg PO Q12H PRNQty: 10 0RF docusate sodium [Colace] 100 mg capsule 100 mg PO DAILY Qty: 30 0RF ferrous sulfate [iron] 325 mg (65 mg iron) tablet 325 mg PO DAILY Qty: 30 0RF Discontinued Combivent Respimat 20-100 mcg/actuation mist 1 puff IH QID Qty: 12 4RF Rx Instructions: space evenly during waking hours Incruse Ellipta 62.5 mcg/actuation blister with device 1 inh inhalation DAILY Qty: 90 4RF Rx Instructions: Take in the morning with advair inhaler Discharge Instructions Stand Alone Forms: Nursing Discharge Form Activity:: Activity as Tolerated Equipment/Supplies:: No Equipment Needed Diet:: As Tolerated Discharge Orders Discharge Orders: Discharge Order (Routine); Ordered 07/07/24 Ordered By: Feng Regan Discharge Data Discharge Date/Time-TO BE ENTERED AT DEPARTURE: 07/07/24 17:23 DS: Summary Time Spent with Patient providing and/or coordinating discharge services: Greater than 30 minutes Status at Discharge Functional status at discharge: independent ambulation Overall status at discharge: patient is back to baseline Mental Status: mental status grossly normal Speech and Movement: speech and movement normal Mood: congruent mood Affect: normal affect Quality:SDOH Health Related Social Needs: Health related social needs inadequate housing Health related social needs details lives with son Exam Narrative Exam Narrative: Well-appearing older female sitting up in bed in no acute distress, baseline 2 L nasal cannula in place, heart regular rate rhythm, lungs diminished inspiratory effort but cough heard throughout bilateral upper and lower lung das, abdomen soft, nontender, nondistended Psych Mental Status: mental status grossly normal Speech and Movement: speech and movement normal Mood: congruent mood Affect: normal affect DS: Data Vitals/I&O Vitals and I&O: Vital Signs Temperature 97.5 F L 07/07/24 15:32 Temperature Source Temporal Artery Scan 07/07/24 15:32 Pulse 122 H 07/07/24 15:32 Pulse Rhythm Regular 07/05/24 21:45 Pulse 105 H 07/05/24 20:20 Respiratory Rate 22 07/07/24 15:32 Respiratory Effort Short of Breath, Labored, Pursed Lip 07/05/24 21:45 Respiratory Depth Shallow 07/05/24 21:45 Respiratory Pattern Tachypnea 07/05/24 21:45 Blood Pressure 104/60 07/07/24 15:32 Blood Pressure Mean 80 07/05/24 20:16 Pulse Oximetry 96 07/07/24 15:32 Oxygen Delivery Method Nasal Cannula 07/07/24 15:32 Oxygen Flow Rate 2 07/07/24 15:32 Fraction of Inspired Oxygen (FIO2) 28 07/06/24 06:15 Pain Level 0 07/07/24 15:32 Comment RN notified 07/06/24 11:53 Intake & Output 07/06/24 07/07/24 07/07/24 17:59 05:59 17:59 Intake Total 300 / 300 924 / 1224 480 / 480 Output Total 1000 / 1000 100 / 100 Balance -700 / -700 924 / 224 380 / 380 Weight 146 lb Intake: IV 924 / 924 Oral 300 / 300 480 / 480 Output: Urine 1000 / 1000 100 / 100 Other: Urine Color Yellow Pale Yellow Urine Appearance Clear Clear Clear Urine Odor Normal None None Stool Size Small Moderate Moderate Stool Characteristics Soft Soft Soft Voiding Methods Bedside Commode Bedside Commode Bedside Commode Data Completed and Pending Labs on day of discharge: Labs from last 24 hours 07/07/24 11:50 WBC 17.03 H RBC 4.11 Hgb 11.1 L Hct 38.2 MCV 93 MCH 27.0 MCHC 29.1 L RDW 18.4 H Plt Count 388 MPV 9.3 Immature Gran % 0.8 Neutrophils % 96.2 Lymphocytes % 1.1 Monocytes % 1.8 Eosinophils % 0.0 Basophils % 0.1 Nucleated RBC % 0.0 Absolute Neutrophils 16.38 H Absolute Lymphocytes 0.19 L Absolute Monocytes 0.31 Absolute Eosinophils 0.00 Absolute Basophils 0.02 PFSH All Active Problems (Updated 07/08/24 @ 00:09 by FERNIE HE) Chronic respiratory failure (Acute) Emphysema lung (Acute) Goals of care, counseling/discussion (Acute) Hypercapnic respiratory failure (Acute) Right ventricular failure (Acute) Pulmonary infiltrates (Acute) Pulmonary hypertension (Acute) Chronic hypoxic respiratory failure (Acute) Sacral decubitus ulcer (Acute) Uvular swelling (Acute) Anemia (Chronic) Chronic obstructive lung disease (Chronic) h/o tobacco use, quit 2008 Heart failure with preserved ejection fraction (HFpEF, >= 50%) (Acute) CAP (community acquired pneumonia) (Acute) COPD exacerbation (Acute) Cervical arthritis with myelopathy (Acute) Arthritis (Acute 02/10/13) Osteoporosis (Acute 01/14/08) Tachycardia (Chronic) GERD (gastroesophageal reflux disease) (Chronic) Medical History GI bleed Hypomagnesemia Bilateral lower extremity edema Acute respiratory failure with hypoxia HTN (hypertension) COVID-[address] Tobacco dependence due to cigarettes Quit smoking when she was 59 years old COVID-19 -associated with COPD exacerbation Parotid mass Resolved after 3 months without intervention Acute on chronic respiratory failure with hypoxia and hypercapnia Acute on chronic diastolic CHF (congestive heart failure) CAP (community acquired pneumonia) GERD (gastroesophageal reflux disease) HTN (hypertension) Surgical History Endoscopic Carpal Tunnel release (03/31/13) Left 7.2.13 Family History Mother Essential hypertension Hyperlipidemia Adopted Dementia Father Heart disease Neoplasm LUNG Lung cancer Sister No problems noted. Sister No problems noted. Brother No problems noted. Brother No problems noted. Maternal Grandfather Stroke Paternal Grandfather Heart disease Maternal Grandmother Heart disease Paternal Grandmother Stroke Son Diabetes Essential hypertension Daughter No problems noted. Social History Smoking/Tobacco Use Status: Former Tobacco Use tobacco type: cigarettes Quit Date: 09/30/13 Tobacco: How many years used: 50 Second Hand Exposure: Yes Smoking risk assessment performed?: Yes Alcohol Intake: never Drug use: Never Substance use type: does not use Counseling given: No Counseling provided: none Caregiver/Support person: No Household members: family Housing: house Communication Needs: None Do you need help understanding health information?: Never Pets and animals: Yes Pets and animals: dog(s) Sexually active: No Do you think of yourself as: straight/heterosexual Current gender identity: female What is your relationship status?: How often do you talk on the phone with friends or family?: three or more times per week How often do you get together with friends or relatives?: three or more times per week Do you belong to any clubs or organized social groups?: no Panel score (0-1 are the most socially isolated patients): 1 What type of physical activity do you participate in: none Special juan needs: No Seatbelt use: sometimes Helmet use: No Drive intox or ride w/intox tow truck driver: No Do you feel safe at home: Yes Do you feel safe in your relationship?: Yes Additional Social history: Lives with Son on [facility] Female Reproductive History Menstrual Menopause type: natural Time Spent with Patient Time Spent with Patient: <45 minutes Time was spent: preparing to see the patient(eg.review tests), obtaining and/or reviewing separately otained hiistory, ordering medications,tests, procedures, referring, communicating with other health career development engineer, indepentently interpreting results, counseling the patient and care coordination
--- NOTE | 2024-07-07 15:53 | CMDISCH_ITS ---
Date of service: 07/07/24 Time of Service: 15:54 LACE Index Scoring Tool Questions: Length of Stay (in days): 2 Was the patient admitted via the E.D.?: Yes Comorbidities: Cerebrovascular Disease, Congestive Heart Failure and Chronic Pulmonary Disease E.D. Visits: 3 Answers: Total Score: 13 Risk of Readmission: High Risk Care Management Discharge Plan Reason for Hospitalization: adverse reaction w/bronchospasm Discharge Plan: Jackie will return home today after her new nebulizer machine is delivered by [employer]. She will have a resumption of HH RN, PT, TOW TRUCK OPERATOR. Her son will drive her home via private vehicle. She will follow up with her PCP on , 07/09/24, and her discharge plan of care. She is happy to be going home. Patient/Family Education Needs: Review discharge instructions and limitations, discussion of self care needs including ask me three. Services Needed at Discharge: DME Agency ([facility], nebulizer) and Home Health Care Services (HH RN, PT, TOW TRUCK OPERATOR) SDOH Health Related Social Needs: Health related social needs inadequate housing Health related social needs details lives with son
--- NOTE | 2024-07-07 17:00 | CHAPLAIN ---
Jackie was up in the chair when I visited. She was discouraged being back here so soon after being discharged and hopes she'll be discharged tomorrow. She was not interested in further conversation.
== END 2024-07-07 17:23 | disposition home or self-care (01) ==
LOC: ER 16:34 → EDHOLD 17:19 → MS 21:23
PROVIDERS: Family Medicine; Admitting Provider Internal Medicine; Emergency Provider Physician Assistant; PCP Nurse Practitioner Family; Visit Provider Internal Medicine
DX: J98.01 Acute bronchospasm (principal); T38.0X5A Adverse effect of glucocorticoids and synthetic analogues, initial encounter; J43.9 Emphysema, unspecified; I50.30 Unspecified diastolic (congestive) heart failure; K21.9 Gastro-esophageal reflux disease without esophagitis; M81.0 Age-related osteoporosis without current pathological fracture; Z87.891 Personal history of nicotine dependence; D64.9 Anemia, unspecified; J96.11 Chronic respiratory failure with hypoxia; I27.20 Pulmonary hypertension, unspecified; Z99.81 Dependence on supplemental oxygen; I11.0 Hypertensive heart disease with heart failure
CPT/HCPCS: 00123; 36415; 71275; 74175; 80048; 80053; 82805; 85027; 87635; 93005; 94640; 96361; 96374; 96376; 99285; J1650; 83605; 83735; 84484; 85025; 85610; 85730; 93010; 94660; 94664; 94760; 99222; 99233; 99239; G0378; J2919; J3490; J7614; J7620

== ENCOUNTER 2024-07-22 13:26 | Outpatient (REF) | payer OTHER, SELFPAY ==
[2024-07-22 20:54] LABS: Absolute Basophil Count 0.05 10^3/uL (0.0-0.2); Absolute Eosinophil Count 0.36 10^3/uL (0.0-0.7); Absolute Monocyte Count 0.76 10^3/uL (0.1-0.8); Absolute Neutrophil Count 7.11 10^3/uL (1.2-6.7); Basophils % 0.6 %; HCT 40.3 % (36.0-46.0); HGB 12.1 g/dL (11.2-15.7); Immature Grans % 1.1 %; Lymphocytes % 7.7 %; MCH 27.6 pg (27.0-33.0); MCV 92 fL (80-95); MPV 9.6 fL (8.0-11.0); Monocytes % 8.4 %; Neutrophils % 78.2 %; Platelet Count 296 10^3/uL (130-400); RBC 4.39 10^6/uL (3.93-5.22); RDW 17.9 % (11.7-14.6); RDW-SD 60.6 fL; WBC 9.08 10^3/uL (4.4-10.8)
[2024-07-22 21:00] LABS: Iron 18 ug/dL (50-170)
== END 2024-07-22 13:27 | disposition home or self-care (01) ==
LOC: LBN 13:26
PROVIDERS: PCP Nurse Practitioner Family; Visit Provider Nurse Practitioner Family
DX: D64.9 Anemia, unspecified (principal); Z00.00 Encounter for general adult medical examination without abnormal findings
CPT/HCPCS: 83540; 85025

== ENCOUNTER 2024-07-28 13:34 | Inpatient (IN) | payer OTHER, SELFPAY ==
[2024-07-28] VITALS (21 sets, daily range): BP systolic 125–169; BP diastolic 65–121; PULSE 94–145; RESP 3–36; TEMP 35.6–37.3; O2SAT 81–99
--- NOTE | 2024-07-28 13:30 | RT.EKG_ITS ---
APPROVED REPORT Exam: Resting ECG Reason for Exam: A-FIB Patient Location: E HR:116 bpm ECG Measurements Heart Rate 116 AXIS MI 204 P 0 QRSd 79 QRS 97 QT 298 T -71 QTc 415 Conclusion Atrial fibrillation with RVR, rate 116 Multiple PVCs Digoxin effect most notable inferior leads No STEMI
--- NOTE | 2024-07-28 13:38 | ED.GENADUL_ITS ---
Discharge Plan Disposition Patient Disposition: Admit to [facility] Discharge Details Clinical Impression: New onset a-fib, Heart failure with preserved ejection fraction (HFpEF, >= 50%) Primary Care Provider: Deven Collier ED Provider: Radha Wells Home Meds and New Rx's Prescriptions: No Action amlodipine 10 mg tablet 10 mg PO BID Qty: 180 3RF digoxin 125 mcg (0.125 mg) tablet 125 mcg PO QAM Qty: 90 4RF esomeprazole magnesium 40 mg capsule,delayed release(DR/EC) 40 mg PO DAILY Qty: 90 3RF fluticasone propion-salmeterol [Advair Diskus] 250-50 mcg/dose blister with device 1 inh Inhalation BID Qty: 3 4RF furosemide 20 mg tablet See Rx Instructions .ROUTE .COMPLEX Qty: 135 4RF Dose Instruction: TAKE 1 TABLET (20MG) BY MOUTH EVERY OTHER DAY ALTERNATING WITH TAKING 2 TABLETS (40MG) BY MOUTH EVERY OTHER DAY Rx Instructions: TAKE 1 TABLET (20MG) BY MOUTH EVERY OTHER DAY ALTERNATING WITH TAKING 2 TABLETS (40MG) BY MOUTH EVERY OTHER DAY montelukast 10 mg tablet 10 mg PO DAILY Qty: 90 3RF roflumilast 500 mcg tablet 500 mcg PO DAILY Qty: 90 4RF docusate sodium [Colace] 100 mg capsule 100 mg PO DAILY Qty: 90 4RF ferrous sulfate [iron] 325 mg (65 mg iron) tablet 325 mg PO DAILY Qty: 90 4RF albuterol sulfate 90 mcg/actuation HFA aerosol inhaler 2 puff inhalation Q6H PRN (Reason: shortness of breath or wheezing) Qty: 8.5 12RF ipratropium-albuterol 0.5 mg-3 mg(2.5 mg base)/3 mL solution for nebulization 3 ml inhalation QID Qty: 180 0RF levalbuterol HCl 1.25 mg/3 mL solution for nebulization 1.25 mg inhalation Q4H PRN (Reason: shortness of breath or wheezing) Qty: 90 0RF acetaminophen 500 mg Tablet 1,000 mg PO PRN PRN guaifenesin [Mucinex] 600 mg tablet extended release 12hr 600 mg PO Q12H PRNQty: 10 0RF HPI General Date/Time Provider Initiated Documentation: 07/28/24 13:37 . HPI Narrative: Jackie is a 73-year-old female with history of HFpEF, COPD, CVA, and CHF who presents to the emergency department for evaluation of tachycardia and shortness of breath. She reports that since she was discharged from the hospital she has had a heart rate in the 100s, this is elevated from her usual in the 80s. 2 da ys ago she started noticing increased swelling to her feet and ankles. Today started with increased shortness of breath, with saturation down to the 80s with any movement. She is on 2 L oxygen during the day and 1 L BiPAP at night; maintains O2 sat mid 90s at rest per baseline. She denies recent fever/chills, dizziness/episodes of passing out, congestion, sore throat, cough, chest pain, nausea/vomiting, change in p.o. intake, change in bowel or bladder function, abdominal pain, black/tarry stools. She does not have a history of blood clots, cancer, hormone use, recent immobility. Physical exam reassuring. Easy work of breathing, lungs with faint end expiratory wheezes. Normal heart sounds, irregular rate and rhythm, tachycardia noted with heart rate in the 110s to 120s. Abdomen soft, nondistended, nontender palpation. Pitting edema noted to bilateral ankles and feet. Moving all extremities equally. D/dx includes but is not limited to: afib with RVR, pulmonary edema, COPD ex acerbation, PNA, electrolyte imbalance, severe anemia, PE I independently interpreted the following tests: EKG notable for afib with rate 116, no changes c/w ischemia, unchanged from previous on 07/05/24. CBC, CMP, TSH, and digoxin level reassuring. BNP very elevated at 3142. Initial troponin 9. VBG notable for mild hypercarbia, improved from previous. CTA reassuring, no obvious pulmonary embolism or pneumonia. While in the emergency department Jackie received a DuoNeb and 40 mg IV Lasix for diuresis. She has urinated a few times since diuretic given. I did perform a review of records: She was recently seen by PCP Deven Roberto NP on 07/22/2024; digoxin level was therapeutic at that time. She was recently prescribed prednisone x 1 week and advised to continue with amlodipine, digoxin, Nexium, Advair Diskus, furosemide, montelukast, benzonatate, Roflumilast, acetaminophen, albuterol, nebulizers, Mucinex, docusate, and iron. She has an appointment with pulmonology on 08/04/2024. Recent hospitalization for acute on chronic respiratory failure with hypoxia, COPD exacerbation, and anemia. Discussed case with Dr. Law, hospitalist. Patient to be admitted for new onset A-fib with CHF. Related Data Home Medications ?Medication ?Instructions ?Recorded ?Confirmed acetaminophen 500 mg tablet 1,000 mg PO PRN PRN 10/23/19 07/28/24 amlodipine 10 mg tablet 10 mg PO BID #180 tabs 06/08/24 07/28/24 digoxin 125 mcg (0.125 mg) tablet 125 mcg PO QAM #90 tabs 06/08/24 07/28/24 esomeprazole magnesium 40 mg 40 mg PO DAILY #90 caps 06/08/24 07/28/24 capsule,delayed release fluticasone 250 mcg-salmeterol 50 1 inh inhalation BID #3 ea 06/08/24 07/28/24 mcg/dose blistr powdr for inhalation (Advair Diskus) furosemide 20 mg tablet See Rx Instructions .Route 06/08/24 07/28/24 .COMPLEX #135 tabs montelukast 10 mg tablet 10 mg PO DAILY #90 tab-caps 06/08/24 07/28/24 guaifenesin 600 mg tablet, 600 mg PO Q12H PRN #10 tabs 06/22/24 07/28/24 extended release 12 hr (Mucinex) roflumilast 500 mcg tablet 500 mcg PO DAILY #90 tabs 06/30/24 07/28/24 albuterol sulfate 90 mcg/actuation 2 puff inhalation Q6H PRN 07/22/24 07/28/24 aerosol inhaler shortness of breath or wheezing #8.5 grams docusate sodium 100 mg capsule 100 mg PO DAILY #90 caps 07/22/24 07/28/24 (Colace) ferrous sulfate 325 mg (65 mg 325 mg PO DAILY #90 tabs 07/22/24 07/28/24 iron) tablet (iron) ipratropium 0.5 mg-albuterol 3 mg 3 ml inhalation QID #180 mL 07/23/24 07/28/24 (2.5 mg base)/3 mL nebulization soln levalbuterol HCl 1.25 mg/3 mL 1.25 mg (3 mL) inhalation Q4H PRN 07/28/24 07/28/24 solution for nebulization shortness of breath or wheezing #90 mL Previous Rx's ?Medication ?Instructions ?Recorded amlodipine 10 mg tablet 10 mg PO BID #180 tabs 06/08/24 digoxin 125 mcg (0.125 mg) tablet 125 mcg PO QAM #90 tabs 06/08/24 esomeprazole magnesium 40 mg 40 mg PO DAILY #90 caps 06/08/24 capsule,delayed release fluticasone 250 mcg-salmeterol 50 1 inh inhalation BID #3 ea 06/08/24 mcg/dose blistr powdr for inhalation (Advair Diskus) furosemide 20 mg tablet See Rx Instructions .Route 06/08/24 .COMPLEX #135 tabs montelukast 10 mg tablet 10 mg PO DAILY #90 tab-caps 06/08/24 guaifenesin 600 mg tablet, 600 mg PO Q12H PRN #10 tabs 06/22/24 extended release 12 hr (Mucinex) roflumilast 500 mcg tablet 500 mcg PO DAILY #90 tabs 06/30/24 albuterol sulfate 90 mcg/actuation 2 puff inhalation Q6H PRN 07/22/24 aerosol inhaler shortness of breath or wheezing #8.5 grams docusate sodium 100 mg capsule 100 mg PO DAILY #90 caps 07/22/24 (Colace) ferrous sulfate 325 mg (65 mg 325 mg PO DAILY #90 tabs 07/22/24 iron) tablet (iron) ipratropium 0.5 mg-albuterol 3 mg 3 ml inhalation QID #180 mL 07/23/24 (2.5 mg base)/3 mL nebulization soln levalbuterol HCl 1.25 mg/3 mL 1.25 mg (3 mL) inhalation Q4H PRN 07/28/24 solution for nebulization shortness of breath or wheezing #90 mL Allergies Allergy/AdvReac Type Severity Reaction Status Date / Time lorazepam (From Ativan) Allergy Severe Anaphylaxis Verified 07/28/24 13:52 diltiazem Allergy Intermediate LE and Verified 07/28/24 13:52 Facial Edema hydrochlorothiazide Allergy Mild rash Verified 07/28/24 13:52 Sulfa (Sulfonamide Allergy Unknown Other (See Verified 07/28/24 13:52 Antibiotics) Comment) umeclidinium (From Incruse AdvReac Severe Anaphylaxis Verified 07/28/24 13:52 Ellipta) metoprolol AdvReac Intermediate Fluid Verified 07/28/24 13:52 Retention lisinopril AdvReac Mild did not Verified 07/28/24 13:52 feel well General KAYCE: 3 Review of Systems Narrative: see HPI Exam Const General: cooperative, healthy appearing, comfortable, no acute distress, well developed and well groomed Nutritional Appearance: thin Orientation: alert and oriented x3 Resp Effort & Inspection: normal respiratory effort and able to speak in complete sentences Auscultation: wheezes (end-exp wheeze) Cardio Rate: tachycardic Rhythm: abnormal rhythm irregularly irregular Pulses: radial pulses present GI Inspection: normal to inspection and non-distended Palpation: soft and nontender Skin General skin exam: no rashes or lesions noted Extrem General: pedal edema (moderate pitting edema to bilateral ankles/feet) bilaterally Right lower extremity: lower leg Details: normal to inspection Left lower extremity: lower leg Details: normal to inspection Medical Decision Making Imaging Data Radiologic Study: Radiologist's impression: CLINICAL HISTORY: SOB with new afib w/ RVR. TECHNIQUE: Imaging Protocol: Axial CT angiography was performed with multi- slice acquisition and multi-planar reconstructions as well as axial, coronal and sagittal MIP reconstructions. Computer aided detection (CAD) was utilized. CONTRAST MATERIAL: Intravenous: Omnipaque 350 Contrast volume:75 ml COMPARISON: CT CT THORAX ABDOMEN CTA from 07/05/2024 FINDINGS: Pulmonary Arteries: No evidence of filling defect to suggest pulmonary emboli. Mediastinum and Amberly: No dominant adenopathy or fluid collection. Pulmonary parenchyma: Emphysematous changes again noted. Stable area scarring in the right upper lobe. Stable nodular densities in scarring in the superior segment of right lower lobe. No acute infiltrates. Pleura: No effusion or pneumothorax. Heart: The heart is mildly dilated. Mild coronary artery calcifications are seen. Aorta: Thoracic aorta non-dilated. No dissection. Atherosclerotic changes. Upper abdomen: No acute findings. Bones: Mild scoliosis and degenerative changes Tubes, Catheters, and Lines: None Soft tissues: Unremarkable. IMPRESSION: No evidence of pulmonary embolism or other acute abnormality. Stable pulmonary findings.. Quality:SDOH Health Related Social Needs: Health related social needs inadequate housing(Z59.1) Health related social needs details lives with son PFSH All Active Problems (Updated 07/28/24 @ 15:37 by Radha Melchor) New onset a-fib (Acute) Chronic respiratory failure (Acute) Emphysema lung (Acute) Goals of care, counseling/discussion (Acute) Hypercapnic respiratory failure (Acute) Right ventricular failure (Acute) Pulmonary infiltrates (Acute) Pulmonary hypertension (Acute) Chronic hypoxic respiratory failure (Acute) Sacral decubitus ulcer (Acute) Uvular swelling (Acute) Anemia (Chronic) Chronic obstructive lung disease (Chronic) h/o tobacco use, quit 2008 Heart failure with preserved ejection fraction (HFpEF, >= 50%) (Acute) CAP (community acquired pneumonia) (Acute) COPD exacerbation (Acute) Cervical arthritis with myelopathy (Acute) Arthritis (Acute 02/10/13) Osteoporosis (Acute 01/14/08) Tachycardia (Chronic) GERD (gastroesophageal reflux disease) (Chronic) Medical History GI bleed Hypomagnesemia Bilateral lower extremity edema Acute respiratory failure with hypoxia HTN (hypertension) COVID-[address] Tobacco dependence due to cigarettes Quit smoking when she was 59 years old COVID-19 -associated with COPD exacerbation Parotid mass Resolved after 3 months without intervention Acute on chronic respiratory failure with hypoxia and hypercapnia Acute on chronic diastolic CHF (congestive heart failure) CAP (community acquired pneumonia) GERD (gastroesophageal reflux disease) HTN (hypertension) Surgical History Endoscopic Carpal Tunnel release (03/31/13) Left 7.2.13 Family History Mother Essential hypertension Hyperlipidemia Adopted Dementia Father Heart disease Neoplasm LUNG Lung cancer Sister No problems noted. Sister No problems noted. Brother No problems noted. Brother No problems noted. Maternal Grandfather Stroke Paternal Grandfather Heart disease Maternal Grandmother Heart disease Paternal Grandmother Stroke Son Diabetes Essential hypertension Daughter No problems noted. Social History (Updated 07/23/24 @ 15:41 by Dina Burr) Smoking/Tobacco Use Status: Former Tobacco Use tobacco type: cigarettes Quit Date: 09/30/13 Tobacco: How many years used: 56 Quit status: quit date established Second Hand Exposure: Yes Smoking risk assessment performed?: Yes Alcohol Intake: never Drug use: Never Substance use type: does not use Counseling given: No Counseling provided: none Caregiver/Support person: No Household members: family Housing: house Communication Needs: None Do you need help understanding health information?: Never Pets and animals: Yes Pets and animals: dog(s) Sexually active: No Do you think of yourself as: straight/heterosexual Current gender identity: female What is your relationship status?: How often do you talk on the phone with friends or family?: three or more times per week How often do you get together with friends or relatives?: three or more times per week Do you belong to any clubs or organized social groups?: no Panel score (0-1 are the most socially isolated patients): 1 What type of physical activity do you participate in: none Special juan needs: No Seatbelt use: sometimes Helmet use: No 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
--- NOTE | 2024-07-28 14:00 | DI.CT_ITS ---
Exam(s) CT CHEST PE CTA EXAM: CT CHEST PE CTA CLINICAL HISTORY: SOB with new afib w/ RVR. TECHNIQUE: Imaging Protocol: Axial CT angiography was performed with multi-slice acquisition and mu lti-planar reconstructions as well as axial, coronal and sagittal MIP reconstructions. Computer aided detection (CAD) was utilized. CONTRAST MATERIAL: Intravenous: Omnipaque 350 Contrast volume:75 ml COMPARISON: CT CT THORAX ABDOMEN CTA from 07/05/2024 FINDINGS: Pulmonary Arteries: No evidence of filling defect to suggest pulmonary emboli. Mediastinum and Amberly: No dominant adenopathy or fluid collection. Pulmonary parenchyma: Emphysematous changes again noted. Stable area scarring in the right upper lob e. Stable nodular densities in scarring in the superior segment of right lower lobe. No acute infil trates. Pleura: No effusion or pneumothorax. Heart: The heart is mildly dilated. Mild coronary artery calcifications are seen. Aorta: Thoracic aorta non-dilated. No dissection. Atherosclerotic changes. Upper abdomen: No acute findings. Bones: Mild scoliosis and degenerative changes Tubes, Catheters, and Lines: None Soft tissues: Unremarkable. IMPRESSION: No evidence of pulmonary embolism or other acute abnormality. Stable pulmonary findings.. RADIATION DOSE DELIVERED: Total DLP DATA REPOSITORY: All CT scans at this facility are submitted to the National Radiology Data Registry (NRDR) Dose Index Registry (DIR) with the [employer] (ACR). RADIATION OPTIMIZATION: All CT scans at this facility use at least one of these dose optimization te chniques: automated exposure control; mA and/or kV adjustment per patient size (includes targeted exa ms where dose is matched to clinical indication); or iterative reconstruction.
[2024-07-28] MEDS: Furosemide 40 MG/4 ML VIAL IVP (14:40)
[2024-07-28] MEDS: Albuterol/Ipratropium 3 ML UPD VIAL UPD (14:40)
[2024-07-28 14:49] LABS: ALT 27 U/L (14-59); AST 12 U/L (15-37); Alkaline Phosphatase 140 U/L (46-116); Anion Gap 7.7 mmol/L (3-11); BUN 17 mg/dL (7-18); Bilirubin, Total 0.32 mg/dL (0.2-1.0); CO2 33.3 mmol/L (21.0-32.0); Chloride 100 mmol/L (98-107); Digoxin 1.01 ng/mL (0.90-2.00); Estimated GFR 59.12 (mL/min/1.73m2); Glucose 106 mg/dL (74-106); Sodium 141 mmol/L (136-145); Total Protein 7.4 g/dL (6.4-8.2); Troponin I 9 ng/L (<or=51)
[2024-07-28 15:09] LABS: NT-proBNP 3142 pg/mL (<300)
[2024-07-28] MEDS: Omnipaque 350 MG/ML 100 ML BTL IJ (15:10)
[2024-07-28] MEDS: Normal Saline - Diluent 50 ML VIAL IJ (15:12)
[2024-07-28 15:21] LABS: HCT 34.3 % (36.0-46.0); HGB 10.4 g/dL (11.2-15.7); MCH 27.3 pg (27.0-33.0); MCHC 30.3 % (32.0-36.0); MCV 90 fL (80-95); RBC 3.81 10^6/uL (3.93-5.22); WBC 8.53 10^3/uL (4.4-10.8)
[2024-07-28 15:22] LABS: Absolute Basophil Count 0.04 10^3/uL (0.0-0.2); Absolute Eosinophil Count 0.55 10^3/uL (0.0-0.7); Absolute Lymphocyte Count 0.52 10^3/uL (1.2-3.4); Absolute Monocyte Count 0.79 10^3/uL (0.1-0.8); Absolute Neutrophil Count 6.56 10^3/uL (1.2-6.7); Atypical Lymphocytes % 0 %; Basophils % 0.5 %; Eosinophils % 6.4 %; Lymphocytes % 6.1 %; MPV 9.4 fL (8.0-11.0); Monocytes % 9.3 %; Neutrophils % 76.9 %; Platelet Count 439 10^3/uL (130-400); RDW 17.2 % (11.7-14.6); RDW-SD 56.6 fL
[2024-07-28 15:23] LABS: RBC Morphology Normal
[2024-07-28 15:25] LABS: BE (Venous) 4 mmol/L (-2-3); HCO3 (Venous) 30 mmol/L (23-28); O2 Sat (Venous) 64 %; TCO2 (Venous) 32 mmol/L (24-29); pCO2 (Venous) 58 mmHg (41-51); pH (Venous) 7.32 (7.31-7.41); pO2 (Venous) 36 mmHg
[2024-07-28 15:42] LABS: Troponin I 10 ng/L (<or=51)
--- NOTE | 2024-07-28 15:58 | HPE_ITS ---
Date of service: 07/28/24 Time of Service: 15:58 Assessment and Plan Assessment and plan (1) PAF (paroxysmal atrial fibrillation): Start date: 07/28/24 Status: Acute Assessment and plan: This is a 73-year-old lady with history of recurrent tachycardia which she states has always been called atrial fibrillation now presenting with shortness of breath, peripheral edema and hypoxemia on 2 L/min nasal cannula oxygen therapy. She does have significant chronic lung disease with eczema and COPD and does take inhalers. She does not smoke presently quit more than a decade ago. She is on chronic Lasix at lower dose. She feels that she is having worsening heart failure which is mostly right-sided and is agreeable to stay in the hospital for IV Lasix for diuresis. She refuses to take calcium channel gisell for beta-blockers or heart rate control and is on digoxin but may be open to rediscussion if cardiology is able to see patient while inpatient. She does not see cardiology chronically have a lung mass for which she does not want to pursue evaluation and treatment. She does refuse aggressive care and is a DNR/DNI. (2) Heart failure with preserved ejection fraction (HFpEF, >= 50%): Start date: 07/28/24 Status: Acute Assessment and plan: Acute worsening of right-sided CHF with tachycardia respond to IV Lasix which will be continued. BNP is elevated but stable. Trend labs. Qualifiers: Heart failure chronicity: acute on chronic Qualified Code(s): I50.33 - Acute on chronic diastolic (congestive) heart failure (3) Emphysema lung: Status: Chronic Assessment and plan: Continue outpatient respiratory care. Qualifiers: Emphysema type: other Qualified Code(s): J43.8 - Other emphysema (4) Hypercapnic respiratory failure: Status: Chronic Assessment and plan: Patient's CO2 retention is chronic and stable and will be trended as needed. She will follow-up with pulmonology with scarring in right upper lobe and nodularity within the scarring which is stable. Qualifiers: Chronicity: chronic Qualified Code(s): J96.12 - Chronic respiratory failure with hypercapnia (5) Pulmonary hypertension: Status: Chronic Assessment and plan: This is not treatable more aggressively than Lasix as needed with significant lung disease. Follow-up clinically. (6) Chronic obstructive lung disease: Status: Chronic Assessment and plan: Continue O2 supplementation as needed and chronic inhaler therapy with nebulizers while hospitalized. Qualifiers: COPD type: emphysema Emphysema type: unspecified Qualified Code(s): J 43.9 - Emphysema, unspecified (7) Anemia: Status: Chronic Assessment and plan: Stable will be trended the patient had no evidence of active blood loss. Qualifiers: Anemia type: iron deficiency Iron deficiency anemia type: chronic blood loss Qualified Code(s): D50.0 - Iron deficiency anemia secondary to blood loss (chronic) (8) GERD (gastroesophageal reflux disease): Status: Chronic Assessment and plan: Continue PPI. Qualifiers: Esophagitis presence: without esophagitis Qualified Code(s): K21.9 - Gastro-esophageal reflux disease without esophagitis (9) History of GI diverticular bleed: Status: Chronic Assessment and plan: Avoid anticoagulation patient had significant bleeding in the past. History of Present Illness History of Present Illness Chief Complaint: Racing heart with dyspnea on leg edema Narrative: This is a 73-year-old female patient who has a known history of recurrent atrial fibrillation having been on diltiazem and metoprolol in the past, both causing swelling around her mouth. She refuses to take these medications or these drugs classes. She presents with leg edema, racing heart and shortness of breath which is worsening and thinks that she has moderate heart failure. She is on Lasix at home chronically and was given IV Lasix with some relief of her shortness of breath but continued with rapid ventricular response which is asymptomatic. She is not on anticoagulation secondary to previous GI bleed with upper endoscopy showing gastric polyps and lower endoscopy showing diverticulosis. She does have chronic anemia which appears stable. She is on digoxin for heart rate control and states she is not willing to retrial calcium channel blockers or beta-blockers at this time. She does not see cardiology. She does have significant COPD and emphysema with right-sided heart failure on chronic Lasix and is followed by pulmonology locally. She did have an IV Lasix which helped her shortness of breath but her tachycardia persist. This is asymptomatic. She also states her leg edema has slightly improved. Troponins were negative and her BNP was elevated but stable. She does have chronic anemia which appears stable with an intermittently elevated platelet count most likely reactive. She has not had any recent GI bleeding. As stated she is not on anticoagulation for paroxysmal atrial fibrillation because of her anemia and significant GI bleed. She is going to be hospitalized for IV Lasix and trending labs and we may rediscuss treatment options with cardiology locally if available. She did have an updated echocardiogram follow-up 2023 which appears stable. She is a DNR/DNI Review of Systems Narrative: 13 point review of systems otherwise unrevealing or stable. Patient denies any hemoptysis. She has not had significant weight loss or gain. She has no focal neurological complaints. PFSH All Active Problems (Updated 07/28/24 @ 18:34 by Allan Law) PAF (paroxysmal atrial fibrillation) (Acute) History of GI diverticular bleed (Chronic) Chronic respiratory failure (Acute) Emphysema lung (Chronic) Goals of care, counseling/discussion (Acute) Hypercapnic respiratory failure (Chronic) Right ventricular failure (Acute) Pulmonary infiltrates (Acute) Pulmonary hypertension (Chronic) Chronic hypoxic respiratory failure (Acute) Sacral decubitus ulcer (Acute) Uvular swelling (Acute) Anemia (Chronic) Chronic obstructive lung disease (Chronic) h/o tobacco use, quit 2008 Heart failure with preserved ejection fraction (HFpEF, >= 50%) (Acute) CAP (community acquired pneumonia) (Acute) COPD exacerbation (Acute) Cervical arthritis with myelopathy (Acute) Arthritis (Acute 02/10/13) Osteoporosis (Acute 01/14/08) Tachycardia (Chronic) GERD (gastroesophageal reflux disease) (Chronic) Medical History (Updated 07/28/24 @ 18:34 by Allan Law) GI bleed Hypomagnesemia Bilateral lower extremity edema Acute respiratory failure with hypoxia HTN (hypertension) COVID-[address] Tobacco dependence due to cigarettes Quit smoking when she was 59 years old COVID-19 -associated with COPD exacerbation Parotid mass Resolved after 3 months without intervention Acute on chronic respiratory failure with hypoxia and hypercapnia Acute on chronic diastolic CHF (congestive heart failure) CAP (community acquired pneumonia) GERD (gastroesophageal reflux disease) HTN (hypertension) Surgical History Endoscopic Carpal Tunnel release (03/31/13) Left 7.2.13 Family History Mother Essential hypertension Hyperlipidemia Adopted Dementia Father Heart disease Neoplasm LUNG Lung cancer Sister No problems noted. Sister No problems noted. Brother No problems noted. Brother No problems noted. Maternal Grandfather Stroke Paternal Grandfather Heart disease Maternal Grandmother Heart disease Paternal Grandmother Stroke Son Diabetes Essential hypertension Daughter No problems noted. Social History Smoking/Tobacco Use Status: Former Tobacco Use tobacco type: cigarettes Quit Date: 09/30/13 Tobacco: How many years used: 56 Quit status: quit date established Second Hand Exposure: Yes Smoking risk assessment performed?: Yes Alcohol Intake: never Drug use: Never Substance use type: does not use Counseling given: No Counseling provided: none Caregiver/Support person: No Household members: family Housing: house Communication Needs: None Do you need help understanding health information?: Never Pets and animals: Yes Pets and animals: dog(s) Sexually active: No Do you think of yourself as: straight/heterosexual Current gender identity: female What is your relationship status?: How often do you talk on the phone with friends or family?: three or more times per week How often do you get together with friends or relatives?: three or more times per week Do you belong to any clubs or organized social groups?: no Panel score (0-1 are the most socially isolated patients): 1 What type of physical activity do you participate in: none Special juan needs: No Seatbelt use: sometimes Helmet use: No Drive intox or ride w/intox route driver: No Do you feel safe at home: Yes Do you feel safe in your relationship?: Yes Additional Social history: Lives with Son on [facility] Female Reproductive History Menstrual Menopause type: natural Meds Allergies and Home Medications Allergies Allergy/AdvReac Type Severity Reaction Status Date / Time lorazepam (From Ativan) Allergy Severe Anaphylaxis Verified 07/28/24 13:52 diltiazem Allergy Intermediate LE and Verified 07/28/24 13:52 Facial Edema hydrochlorothiazide Allergy Mild rash Verified 07/28/24 13:52 Sulfa (Sulfonamide Allergy Unknown Other (See Verified 07/28/24 13:52 Antibiotics) Comment) umeclidinium (From Incruse AdvReac Severe Anaphylaxis Verified 07/28/24 13:52 Ellipta) metoprolol AdvReac Intermediate Fluid Verified 07/28/24 13:52 Retention lisinopril AdvReac Mild did not Verified 07/28/24 13:52 feel well Home Medications ?Medication ?Instructions ?Recorded ?Confirmed ?Type acetaminophen 500 mg tablet 1,000 mg PO PRN PRN 10/23/19 07/28/24 History amlodipine 10 mg tablet 10 mg PO BID #180 tabs 06/08/24 07/28/24 Rx digoxin 125 mcg (0.125 mg) tablet 125 mcg PO QAM #90 tabs 06/08/24 07/28/24 Rx esomeprazole magnesium 40 mg 40 mg PO DAILY #90 caps 06/08/24 07/28/24 Rx capsule,delayed release fluticasone 250 mcg-salmeterol 50 1 inh inhalation BID #3 ea 06/08/24 07/28/24 Rx mcg/dose blistr powdr for inhalation (Advair Diskus) furosemide 20 mg tablet See Rx Instructions .Route 06/08/24 07/28/24 Rx .COMPLEX #135 tabs montelukast 10 mg tablet 10 mg PO DAILY #90 tab-caps 06/08/24 07/28/24 Rx guaifenesin 600 mg tablet, 600 mg PO Q12H PRN #10 tabs 06/22/24 07/28/24 Rx extended release 12 hr (Mucinex) roflumilast 500 mcg tablet 500 mcg PO DAILY #90 tabs 06/30/24 07/28/24 Rx albuterol sulfate 90 mcg/actuation 2 puff inhalation Q6H PRN 07/22/24 07/28/24 Rx aerosol inhaler shortness of breath or wheezing #8.5 grams docusate sodium 100 mg capsule 100 mg PO DAILY #90 caps 07/22/24 07/28/24 Rx (Colace) ferrous sulfate 325 mg (65 mg 325 mg PO DAILY #90 tabs 07/22/24 07/28/24 Rx iron) tablet (iron) ipratropium 0.5 mg-albuterol 3 mg 3 ml inhalation QID #180 mL 07/23/24 07/28/24 Rx (2.5 mg base)/3 mL nebulization soln levalbuterol HCl 1.25 mg/3 mL 1.25 mg (3 mL) inhalation Q4H PRN 07/28/24 07/28/24 Rx solution for nebulization shortness of breath or wheezing #90 mL Exam Narrative Exam Narrative: General: Patient appears warm for age, sitting at bedside leaning slightly forward speaking clearly and in full sentences. He is alert and oriented to person place. She is in no acute distress. HEENT: Normocephalic, eyes with pupils equal and reactive light symmetrically, extraocular movement intact and sclera anicteric. Oropharynx with dry mucosa. Neck: Supple without JVD. Lungs: Bronchovesicular breath sounds diffusely with no focalizing rales or rhonchi but decreased aeration diffusely with increased expiratory phase and expiratory wheeze without focalizing. Heart: Tachycardic rate with irregularly irregular rhythm cardiac specialist reveals atrial fibrillation with variable rate. Breast: Exam deferred. Abdomen: Slightly protuberant, soft nontender to palpation without palpable hepatosplenomegaly. Bowel sounds positive all quadrants. Genitalia/rectal: Exam deferred. Extremities: 2+ nonpitting edema in lower extremities with fair capillary refill, chronic skin changes with loss of hair but no ulcerations or hyperpigmentation. No atrophic skin. Joints have fair range of motion. Skin: Pale, warm and dry. Neuro: Cranial nerves II through XII grossly intact, no focal motor deficits. Psych: Normal affect and mood. No abnormal thought processes. Remote and recent memory intact. Results Imaging Imaging Studies: EXAM: CT CHEST PE CTA CLINICAL HISTORY: SOB with new afib w/ RVR. TECHNIQUE: Imaging Protocol: Axial CT angiography was performed with multi- slice acquisition and multi-planar reconstructions as well as axial, coronal and sagittal MIP reconstructions. Computer aided detection (CAD) was utilized. CONTRAST MATERIAL: Intravenous: Omnipaque 350 Contrast volume:75 ml COMPARISON: CT CT THORAX ABDOMEN CTA from 07/05/2024 FINDINGS: Pulmonary Arteries: No evidence of filling defect to suggest pulmonary emboli. Mediastinum and Amberly: No dominant adenopathy or fluid collection. Pulmonary parenchyma: Emphysematous changes again noted. Stable area scarring in the right upper lobe. Stable nodular densities in scarring in the superior segment of right lower lobe. No acute infiltrates. Pleura: No effusion or pneumothorax. Heart: The heart is mildly dilated. Mild coronary artery calcifications are seen. Aorta: Thoracic aorta non-dilated. No dissection. Atherosclerotic changes. Upper abdomen: No acute findings. Bones: Mild scoliosis and degenerative changes Tubes, Catheters, and Lines: None Soft tissues: Unremarkable. IMPRESSION: No evidence of pulmonary embolism or other acute abnormality. Stable pulmonary findings.. Date of Exam: 06/19/24 EXAM: Comprehensive 2D, Doppler, and color-flow Echocardiogram Patient Location: ER Room/Bed: 1 [facility]: Darion Badillo RDCS (AE) Indications: Hypoxia Other Information Technically limited study due to body habitus, inability to position patient. Conclusion Normal left ventricular wall thickness and chamber size. Ejection fraction is 65%. Wall motion is normal Right ventricle is mildly enlarged and hypocontractile Both atria are normal in size There are no structural valvular abnormalities Estimated right ventricular systolic pressure is 52 mmHg Labs 07/28/24 14:17 07/28/24 14:17 Labs: Laboratory Results - last 24 hr 07/28/24 07/28/24 14:17 15:13 WBC 8.53 RBC 3.81 L Hgb 10.4 L Hct 34.3 L MCV 90 MCH 27.3 MCHC 30.3 L RDW 17.2 H Plt Count 439 H MPV 9.4 Immature Gran % 0.0 Neutrophils % 76.9 Lymphocytes % 6.1 Atypical Lymphs % 0 Monocytes % 9.3 Eosinophils % 6.4 Basophils % 0.5 Nucleated RBC % 0.0 Absolute Neutrophils 6.56 Absolute Lymphocytes 0.52 L Absolute Monocytes 0.79 Absolute Eosinophils 0.55 Absolute Basophils 0.04 RBC Morphology Normal VBG pH 7.32 VBG pCO2 58 H VBG pO2 36 VBG HCO3 30 H VBG Total CO2 32 H VBG O2 Saturation 64 VBG Base Excess 4 H Sodium 141 Potassium 4.0 Chloride 100 Carbon Dioxide 33.3 H Anion Gap 7.7 BUN 17 Creatinine 1.0 Est GFR (CKD-EPI 2020) 59.12 Glucose 106 Calcium 9.0 Total Bilirubin 0.32 AST 12 L ALT 27 Alkaline Phosphatase 140 H Troponin I 9 10 NT-Pro-B Natriuret Pep 3142 H Total Protein 7.4 Albumin 3.0 L TSH 0.90 Digoxin 1.01 Last Vital Signs Temp 35.6 C L 07/28/24 13:51 Pulse 129 H 07/28/24 14:23 Resp 27 H 10/29/24 14:30 BP 125/70 07/28/24 14:23 Pulse Ox 96 07/28/24 14:30 Time Spent Time spent with Patient: >75 minutes Time was spent: preparing to see the patient(eg.review tests), obtaining and/or reviewing separately otained hiistory, ordering medications,tests, procedures, indepentently interpreting results, counseling the patient and care coordination
[2024-07-28 17:07] LABS: Source Nasal/Nares
[2024-07-28 17:19] LABS: Magnesium 1.5 mg/dL (1.8-2.4)
[2024-07-28 17:22] LABS: PTT Activated 31.1 sec (23.6-32.8)
[2024-07-28 17:40] LABS: COVID-19 PCR Negative (Negative)
--- NOTE | 2024-07-28 18:02 | W.PC.ACHO ---
Registration Status: Primary Language: Preferred Language: ED Information & Data Chief Complaint SOB 07/28/24 13:51 Chief Complaint SOB 07/28/24 13:47 Triage Note Increased difficulty 07/28/24 13:47 breathing, weight gain, increased edema in both feet /ankles. PT reports she was called by her PCP who was concerned about these symptoms. Medical / Surgical History (Last Updated 07/28/24 @ 17:55 by Allan Law) GI bleed Hypomagnesemia Bilateral lower extremity edema Acute respiratory failure with hypoxia HTN (hypertension) COVID-[address] Tobacco dependence due to cigarettes COVID-19 Parotid mass Acute on chronic respiratory failure with hypoxia and hypercapnia Acute on chronic diastolic CHF (congestive heart failure) CAP (community acquired pneumonia) GERD (gastroesophageal reflux disease) HTN (hypertension) (Last Reviewed 07/28/24 @ 17:47 by Allan Law) Endoscopic Carpal Tunnel release (03/31/13) Most Recent Vital Signs Temperature 36.3 C L 07/28/24 17:24 Pulse 119 H 07/28/24 17:24 Pulse Rhythm Irregular 07/28/24 17:24 Pulse 118 H 07/28/24 16:50 Respiratory Rate 22 07/28/24 17:24 Respiratory Effort Short of Breath, Labored, Pursed Lip 07/28/24 17:24 Respiratory Depth Shallow 07/28/24 17:24 Respiratory Pattern Tachypnea 07/28/24 17:24 Blood Pressure 137/93 H 07/28/24 17:24 Blood Pressure Mean 88 07/28/24 17:02 Blood Pressure Position Sitting 07/28/24 13:51 Pulse Oximetry 93 07/28/24 17:24 Oxygen Delivery Method Nasal Cannula 07/28/24 17:24 Oxygen Flow Rate 2 07/28/24 17:24 Pain Level 5 07/28/24 17:24 Allergies lorazepam (From Ativan) Allergy (Severe, Verified 07/28/24 13:52) Anaphylaxis diltiazem Allergy (Intermediate, Verified 07/28/24 13:52) LE and Facial Edema hydrochlorothiazide Allergy (Mild, Verified 07/28/24 13:52) rash Sulfa (Sulfonamide Antibiotics) Allergy (Unknown, Verified 07/28/24 13:52) Other (See Comment) umeclidinium (From Incruse Ellipta) Adverse Reaction (Severe, Verified 07/28/24 13:52) Anaphylaxis extreme breathlessness metoprolol Adverse Reaction (Intermediate, Verified 07/28/24 13:52) Fluid Retention lisinopril Adverse Reaction (Mild, Verified 07/28/24 13:52) did not feel well IV IV Catheter Type [Left Upper Saline Lock arm] IV Catheter Gauge [Left Upper 18 arm] Diet Orders Category Date Time Status Heart Healthy Eating [DIET] Nutrition 07/28/24 Dinner Active Diagnostics 07/28/24 07/28/24 07/28/24 Range/Units 17:21 17:03 16:57 WBC (4.4-10.8) 10^3/uL RBC (3.93-5.22) 10^6/uL Hgb (11.2-15.7) g/dL Hct (36.0-46.0) % MCV (80-95) fL MCH (27.0-33.0) pg MCHC (32.0-36.0) % RDW (11.7-14.6) % Plt Count (130-400) 10^3/uL MPV (8.0-11.0) fL Immature Gran % % Neutrophils % % Lymphocytes % % Atypical Lymphs % % Monocytes % % Eosinophils % % Basophils % % Nucleated RBC % (0.0-0.3) % Absolute Neutrophils (1.2-6.7) 10^3/uL Absolute Lymphocytes (1.2-3.4) 10^3/uL Absolute Monocytes (0.1-0.8) 10^3/uL Absolute Eosinophils (0.0-0.7) 10^3/uL Absolute Basophils (0.0-0.2) 10^3/uL RBC Morphology PT Pending INR Pending APTT 31.1 (23.6-32.8) sec VBG pH (7.31-7.41) VBG pCO2 (41-51) mmHg VBG pO2 mmHg VBG HCO3 (23-28) mmol/L VBG Total CO2 (24-29) mmol/L VBG O2 Saturation % VBG Base Excess (-2-3) mmol/L Sodium (136-145) mmol/L Potassium (3.5-5.1) mmol/L Chloride (98-107) mmol/L Carbon Dioxide (21.0-32.0) mmol/L Anion Gap (3-11) mmol/L BUN (7-18) mg/dL Creatinine (0.55-1.02) mg/dL Est GFR (CKD-EPI 2020) (mL/min/1.73m2) Glucose (74-106) mg/dL Calcium (8.5-10.1) mg/dL Magnesium 1.5 L (1.8-2.4) mg/dL Total Bilirubin (0.2-1.0) mg/dL AST (15-37) U/L ALT (14-59) U/L Alkaline Phosphatase (46-116) U/L Troponin I Pending (<or=51) ng/L NT-Pro-B Natriuret Pep (<300) pg/mL Total Protein (6.4-8.2) g/dL Albumin (3.4-5.0) g/dL TSH (0.36-3.74) uIU/mL Digoxin (0.90-2.00) ng/mL COVID-19 Source Nasal/Nares SARS-CoV-2 (PCR) Negative (Negative) 07/28/24 07/28/24 Range/Units 15:13 14:17 WBC 8.53 (4.4-10.8) 10^3/uL RBC 3.81 L (3.93-5.22) 10^6/uL Hgb 10.4 L (11.2-15.7) g/dL Hct 34.3 L (36.0-46.0) % MCV 90 (80-95) fL MCH 27.3 (27.0-33.0) pg MCHC 30.3 L (32.0-36.0) % RDW 17.2 H (11.7-14.6) % Plt Count 439 H (130-400) 10^3/uL MPV 9.4 (8.0-11.0) fL Immature Gran % 0.0 % Neutrophils % 76.9 % Lymphocytes % 6.1 % Atypical Lymphs % 0 % Monocytes % 9.3 % Eosinophils % 6.4 % Basophils % 0.5 % Nucleated RBC % 0.0 (0.0-0.3) % Absolute Neutrophils 6.56 (1.2-6.7) 10^3/uL Absolute Lymphocytes 0.52 L (1.2-3.4) 10^3/uL Absolute Monocytes 0.79 (0.1-0.8) 10^3/uL Absolute Eosinophils 0.55 (0.0-0.7) 10^3/uL Absolute Basophils 0.04 (0.0-0.2) 10^3/uL RBC Morphology Normal PT INR APTT (23.6-32.8) sec VBG pH 7.32 (7.31-7.41) VBG pCO2 58 H (41-51) mmHg VBG pO2 36 mmHg VBG HCO3 30 H (23-28) mmol/L VBG Total CO2 32 H (24-29) mmol/L VBG O2 Saturation 64 % VBG Base Excess 4 H (-2-3) mmol/L Sodium 141 (136-145) mmol/L Potassium 4.0 (3.5-5.1) mmol/L Chloride 100 (98-107) mmol/L Carbon Dioxide 33.3 H (21.0-32.0) mmol/L Anion Gap 7.7 (3-11) mmol/L BUN 17 (7-18) mg/dL Creatinine 1.0 (0.55-1.02) mg/dL Est GFR (CKD-EPI 2020) 59.12 (mL/min/1.73m2) Glucose 106 (74-106) mg/dL Calcium 9.0 (8.5-10.1) mg/dL Magnesium (1.8-2.4) mg/dL Total Bilirubin 0.32 (0.2-1.0) mg/dL AST 12 L (15-37) U/L ALT 27 (14-59) U/L Alkaline Phosphatase 140 H (46-116) U/L Troponin I 10 9 (<or=51) ng/L NT-Pro-B Natriuret Pep 3142 H (<300) pg/mL Total Protein 7.4 (6.4-8.2) g/dL Albumin 3.0 L (3.4-5.0) g/dL TSH 0.90 (0.36-3.74) uIU/mL Digoxin 1.01 (0.90-2.00) ng/mL COVID-19 Source SARS-CoV-2 (PCR) (Negative) Intake and Output - 24 Hour Total 07/28/24 13:34 thru 07/28/24 17:24 Output Total 1090 Balance -1090 Weight 64.229 kg Output: Urine 1090 Other: # Voids 1 Falls Risk Assessment History of Falls Previous History 07/28/24 17:24 Contributing Factors Unstable 07/28/24 17:24 Ambulatory Aids Independent 07/28/24 13:51 Tubes/Lines None 07/28/24 13:51 Gait Evaluation No gait disturbance 07/28/24 13:51 Cognition No cognitive impairment 07/28/24 13:51 Fall Total Score 18 07/28/24 17:24 Level of Risk Standard/Low Risk 07/28/24 17:24 Problems (Last Updated 07/28/24 @ 17:55 by Allan Law) Emphysema lung (Chronic) Hypercapnic respiratory failure (Chronic) Pulmonary hypertension (Acute) Chronic obstructive lung disease (Chronic) Heart failure with preserved ejection fraction (HFpEF, >= 50%) (Acute) v v v v v v v v v Sending and/or Receiving Nurses: Please use comment section below to note any information pertinent to the patient hand-off not included above. Information / Comments: Pt presented to ED with SOB, fluid retention, tachycardia. Admitted to fl0or afib/fluid retention. Report received from: Brit Chaudhary RN.
[2024-07-28] MEDS: Normal Saline Flush 10 ML SYR IVP ×2 (18:14→20:46)
--- NOTE | 2024-07-28 18:28 | NUR.NOTE ---
Nursing Note: Returned call to ED at 16:50 for report, on hold for several minutes, nursing stated that they would have to call back. They did call back to give report in approx 10 minutes.
[2024-07-28] MEDS: Heparin 5,000 UNITS/ML VIAL 5000 UNITS SC (18:36)
[2024-07-28 19:03] LABS: Troponin I 11 ng/L (<or=51)
[2024-07-28] MEDS: Albuterol/Ipratropium 3 ML UPD VIAL IH (20:15)
[2024-07-28] MEDS: Budesonide/Formoterol 160/4.5 6 GM 60 PUFF INH IH (20:17)
[2024-07-28] MEDS: amLODIPine 10 MG TAB PO (20:46)
[2024-07-28] MEDS: guaiFENesin 600 MG TABCR PO (20:49)
[2024-07-28] MEDS: Acetaminophen 325 MG TAB PO (20:49)
[2024-07-28 21:20] LABS: Prothrombin Time 10.3 sec (9.1-11.1)
[2024-07-29] VITALS (16 sets, daily range): BP systolic 113–128; BP diastolic 50–96; PULSE 74–124; RESP 5–22; TEMP 36.1–36.6; O2SAT 88–100
[2024-07-29] MEDS: Heparin 5,000 UNITS/ML VIAL 5000 UNITS SC ×3 (02:40→16:17)
[2024-07-29] MEDS: Acetaminophen 325 MG TAB PO ×2 (06:22→16:33)
[2024-07-29] MEDS: Levalbuterol 1.25 MG/3 ML UPD VIAL IH (06:35)
[2024-07-29 07:03] LABS: HCT 32.9 % (36.0-46.0); MCH 27.3 pg (27.0-33.0); MCHC 30.4 % (32.0-36.0); MCV 90 fL (80-95); MPV 9.4 fL (8.0-11.0); Platelet Count 484 10^3/uL (130-400); RBC 3.66 10^6/uL (3.93-5.22); RDW 17.2 % (11.7-14.6); RDW-SD 56.5 fL
[2024-07-29 07:28] LABS: ALT 18 U/L (14-59); AST 11 U/L (15-37); Albumin 2.7 g/dL (3.4-5.0); Alkaline Phosphatase 131 U/L (46-116); Anion Gap 4.3 mmol/L (3-11); BUN 16 mg/dL (7-18); Bilirubin, Total 0.25 mg/dL (0.2-1.0); CREATININE 1.1 mg/dL (0.55-1.02); Calcium 9.2 mg/dL (8.5-10.1); Chloride 101 mmol/L (98-107); Estimated GFR 52.73 (mL/min/1.73m2); Glucose 130 mg/dL (74-106); Potassium 4.3 mmol/L (3.5-5.1); Sodium 141 mmol/L (136-145); Total Protein 6.9 g/dL (6.4-8.2)
[2024-07-29 07:37] LABS: Magnesium 1.6 mg/dL (1.8-2.4)
[2024-07-29] MEDS: amLODIPine 10 MG TAB PO ×2 (07:40→21:04)
[2024-07-29] MEDS: Furosemide 40 MG/4 ML VIAL IVP ×2 (07:40→16:17)
[2024-07-29] MEDS: Esomeprazole 40 MG CAPCR PO (07:40)
[2024-07-29 07:42] LABS: CO2 33.6 mmol/L (21.0-32.0)
[2024-07-29] MEDS: Digoxin 0.125 MG TAB PO (07:43)
[2024-07-29] MEDS: Docusate Sodium 100 MG CAP PO ×2 (07:43→21:04)
[2024-07-29] MEDS: Normal Saline Flush 10 ML SYR IVP ×2 (07:43→21:05)
[2024-07-29] MEDS: Roflumilast 500 MCG TAB PO (07:43)
[2024-07-29] MEDS: Budesonide/Formoterol 160/4.5 6 GM 60 PUFF INH IH ×2 (08:23→20:30)
[2024-07-29] MEDS: Albuterol/Ipratropium 3 ML UPD VIAL IH (08:23)
[2024-07-29] MEDS: Montelukast 10 MG TAB PO (09:11)
--- NOTE | 2024-07-29 10:01 | PDOC.CMIN ---
Date of service: 07/29/24 Time of Service: 10:02 Care Management Initial Assmt Initial Assessment Reason for Hospitalization: PAF (paroxysmal atrial fibrillation) Functional Status/Living Situation Patient Presentation: Jackie was lying in bed when CM met with her. She was icing her feet and states that she feels better since getting the fluid off with IV lasix. Jackie is closely followed by [facility] in the community and is set up with their home monitoring equipment. Per pt, the monitoring system picked up on her afib, and [facility] notified her PCP who called her and asked her to go to the ER. Jackie identifies that shes been to the hospital several times and is expresses frustration over her medication allergies. Per pt, she's already completed an Advanced Directives and COLST and does not feel she needs to meet with Palliative. Town of Residence: [facility] Resides with: Child (Son, Vinh) Significant Other/Family: Local Natural Supports: sonVinh lives with Jackie Employment Status: Retired ([employer]) Instrumental Activities of Daily Living (ADLs): Independent Medications Medication Management: No Issues/Barriers identified Physical Functioning/Mobility Assistive Device: home O2, bipap, nebulizer FWW, cane Advance Directives Advance Directives: Do you have an Advance Directive: Y 02/10/13 10:22 AD On File at [facility]: Y 02/10/13 11:03 Date Asked 07/05/24 07/05/24 11:20 AD Date Reviewed 06/24/24 06/24/24 07:38 COLST On File at [facility] Yes 05/29/24 10:37 COLST Date Scanned 02/05/19 05/29/24 10:37 Code Status Resuscitation Status DNR/DNI Portal Pt does not currently have a portal and education provided: Yes Insurance Coverage/Financial Issues Insurance: [employer] Financial Issues: None identified Care Team Visit Care Team Role Provider Type Deven Roberto NP Primary Care Provider NURSE PRACTITIONER Radha Melchor Emergency Provider NURSE PRACTITIONER Allan Law Admit Provider NON-[facility] STAFF PHYSICIAN Attending Provider Discharge Potential Discharge Needs: PCP F/U Appt Anticipated Barriers to Discharge: Medical Status Patient/Family Education Needs: Review discharge instructions, discuss Ask Me Three Transportation: Private vehicle Plan: Anticipate Jackie will return home once medically cleared with a resumption of RN, PT, MAIL CARRIERS SUPERVISOR services. Her son will drive her home via private vehicle. Follow up with PCP and community providers. Jackie has an upcoming appointment with her silica spray mixer on 08/04/24. [facility] All Active Problems (Updated 07/28/24 @ 18:34 by Allan Law) PAF (paroxysmal atrial fibrillation) (Acute) History of GI diverticular bleed (Chronic) Chronic respiratory failure (Acute) Emphysema lung (Chronic) Goals of care, counseling/discussion (Acute) Hypercapnic respiratory failure (Chronic) Right ventricular failure (Acute) Pulmonary infiltrates (Acute) Pulmonary hypertension (Chronic) Chronic hypoxic respiratory failure (Acute) Sacral decubitus ulcer (Acute) Uvular swelling (Acute) Anemia (Chronic) Chronic obstructive lung disease (Chronic) h/o tobacco use, quit 2008 Heart failure with preserved ejection fraction (HFpEF, >= 50%) (Acute) CAP (community acquired pneumonia) (Acute) COPD exacerbation (Acute) Cervical arthritis with myelopathy (Acute) Arthritis (Acute 02/10/13) Osteoporosis (Acute 01/14/08) Tachycardia (Chronic) GERD (gastroesophageal reflux disease) (Chronic) Medical History (Updated 07/28/24 @ 18:34 by Allan Law) GI bleed Hypomagnesemia Bilateral lower extremity edema Acute respiratory failure with hypoxia HTN (hypertension) COVID-[address] Tobacco dependence due to cigarettes Quit smoking when she was 59 years old COVID-19 -associated with COPD exacerbation Parotid mass Resolved after 3 months without intervention Acute on chronic respiratory failure with hypoxia and hypercapnia Acute on chronic diastolic CHF (congestive heart failure) CAP (community acquired pneumonia) GERD (gastroesophageal reflux disease) HTN (hypertension) Surgical History Endoscopic Carpal Tunnel release (03/31/13) Left 7.2.13 Family History Mother Essential hypertension Hyperlipidemia Adopted Dementia Father Heart disease Neoplasm LUNG Lung cancer Sister No problems noted. Sister No problems noted. Brother No problems noted. Brother No problems noted. Maternal Grandfather Stroke Paternal Grandfather Heart disease Maternal Grandmother Heart disease Paternal Grandmother Stroke Son Diabetes Essential hypertension Daughter No problems noted. Social History Smoking/Tobacco Use Status: Former Tobacco Use tobacco type: cigarettes Quit Date: 09/30/13 Tobacco: How many years used: 56 Quit status: quit date established Second Hand Exposure: Yes Smoking risk assessment performed?: Yes Alcohol Intake: never Drug use: Never Substance use type: does not use Counseling given: No Counseling provided: none Caregiver/Support person: No Household members: family Housing: house Communication Needs: None Do you need help understanding health information?: Never Pets and animals: Yes Pets and animals: dog(s) Sexually active: No Do you think of yourself as: straight/heterosexual Current gender identity: female What is your relationship status?: How often do you talk on the phone with friends or family?: three or more times per week How often do you get together with friends or relatives?: three or more times per week Do you belong to any clubs or organized social groups?: no Panel score (0-1 are the most socially isolated patients): 1 What type of physical activity do you participate in: none Special juan needs: No Seatbelt use: sometimes Helmet use: No Drive intox or ride w/intox meals on wheels driver: No Do you feel safe at home: Yes Do you feel safe in your relationship?: Yes Additional Social history: Lives with Son on [facility] Female Reproductive History Menstrual Menopause type: natural Readmission Within the Past 30 Days Yes or No: Yes Date of First Admission Date of 1st Admission: 07/05/24 Date of this Admission Date of Admission: 07/28/24 This admission was: Through ED Office Visit Since 1st Admission Have you seen your PCP in the office since discharge?: Yes Date of PCP Appointment: 07/22/24 Had an appointment Been Scheduled?: Yes Speicalist Appointments Have you seen any other specialist since your 1st Admission?: No If the patient had a VNA ordered Did the patient have a VNA order?: Yes ED visits How many ED visits in the past 12 months: 5 Assessment for Readmission Summary of readmission circumstances, based upon interviews: Per H&P This is a 73-year-old female patient who has a known history of recurrent atrial fibrillation having been on diltiazem and metoprolol in the past, both causing swelling around her mouth. She refuses to take these medications or these drugs classes. She presents with leg edema, racing heart and shortness of breath which is worsening and thinks that she has moderate heart failure. She is on Lasix at home chronically and was given IV Lasix with some relief of her shortness of breath but continued with rapid ventricular response which is asymptomatic. She is not on anticoagulation secondary to previous GI bleed with upper endoscopy showing gastric polyps and lower endoscopy showing diverticulosis. She does have chronic anemia which appears stable. She is on digoxin for heart rate control and states she is not willing to retrial calcium channel blockers or beta-blockers at this time. She does not see cardiology. She does have significant COPD and emphysema with right-sided heart failure on chronic Lasix and is followed by pulmonology locally. SDOH(Care Management) Screening Will the Patient Participate in the Screening?: Declined to provide Anticipated HH Services Anticipated HH Services at Discharge [facility] Resumption, MAIL CARRIERS SUPERVISOR, PT and RN Anticipated Date of Discharge: 07/31/24. Following Provider: Deven Roberto.
--- NOTE | 2024-07-29 11:38 | PHA.REVIEW2 ---
Pharmacy Admission Review Admission Clinical Review Admission Pharmacy Review: PAF (paroxysmal atrial fibrillation) (Acute) Heart failure with preserved ejection fraction (HFpEF, >= 50%) (Acute) lorazepam (From Ativan) Allergy (Severe, Verified 07/28/24 13:52) Anaphylaxis diltiazem Allergy (Intermediate, Verified 07/28/24 13:52) LE and Facial Edema hydrochlorothiazide Allergy (Mild, Verified 07/28/24 13:52) rash Sulfa (Sulfonamide Antibiotics) Allergy (Unknown, Verified 07/28/24 13:52) Other (See Comment) umeclidinium (From Incruse Ellipta) Adverse Reaction (Severe, Verified 07/28/24 13:52) Anaphylaxis metoprolol Adverse Reaction (Intermediate, Verified 07/28/24 13:52) Fluid Retention lisinopril Adverse Reaction (Mild, Verified 07/28/24 13:52) did not feel well Resuscitation Status DNR/DNI Height 5 ft Weight 64.3 kg Comments Comments/Follow Ups: Watch for addition/changes in CHF meds pending cardio consult Pharmacy Admission Review Renal Dosing Renal Dosing: BUN 16 mg/dL (7-18) 07/29/24 06:35 Creatinine 1.1 mg/dL (0.55-1.02) H 07/29/24 06:35 Medications needing adjustments: Reviewed (CrCl 37.49 mL/min, SCr increased from 1) List of meds needing interventions: Current medications are okay Anticoagulation Anticoagulation: Hgb 10.0 g/dL (11.2-15.7) L 07/29/24 06:35 Hct 32.9 % (36.0-46.0) L 07/29/24 06:35 Plt Count 484 10^3/uL (130-400) H 07/29/24 06:35 INR 1.0 (0.9-1.1) 07/28/24 20:55 Creatinine 1.1 mg/dL (0.55-1.02) H 07/29/24 06:35 DVT Prophylaxis: Intervened (H+P stated to avoid anticoagulation due to severe bleed risk. Reached out to provider as patient has order for heparin. Per provider - using heparin as it is short acting, avoiding any long acting or Lovenox) Medications: Heparin (q8h) Relevant Labs Relevant Labs: Sodium 141 mmol/L (136-145) 07/29/24 06:35 Potassium 4.3 mmol/L (3.5-5.1) 07/29/24 06:35 Chloride 101 mmol/L (98-107) 07/29/24 06:35 Magnesium 1.6 mg/dL (1.8-2.4) L 07/29/24 06:35 Electrolytes, C-Reactive P, ESR: Reviewed (Mg increased from 1.5) Cardiac Review Cardiac Review: Troponin I 11 ng/L (<or=51) 07/28/24 18:20 NT-Pro-B Natriuret Pep 3142 pg/mL (<300) H 07/28/24 14:17 Blood Pressure 121/50 1140 Heart Rate 115 1140 Blood Pressure 117/60 0733 Heart Rate 101 0839 Blood Pressure 119/96 0236 Heart Rate 74 0823 Heart Rate 118 0743 Heart Rate 118 0733 Heart Rate 114 0645 Heart Rate 124 0635 List meds needing interventions: Has order for amlodipine 10mg BID, digoxin 0.125mg daily and furosemide IVP 40mg BID. Discussed in morning meeting potential addition of antiarrhythmic (amiodarone potentially). Provider putting in cardio consult. QTc Review QTc: Reviewed (415 from 07/28/24) IV to PO Switch IV Medications: Reviewed (furosemide for edema with CHF) Home Meds Home Med List reviewed: Intervened Relevent Home Meds Not ordered & why?: Advair (substituted with Symbicort per pharmacy protocol) Current Meds Current Medication Order Review: Intervened Comments: Added 2nd PRN to guaifenesin and Xopenex orders per pharmacy protocol Changed timing of esomeprazole from 0830 to 0730 per pharmacy protocol Comments Comments/Follow Ups: Watch for addition/changes in CHF meds pending cardio consult
--- NOTE | 2024-07-29 15:16 | PGE_ITS ---
Date of Service Date of service: 07/29/24 Time of Service: 11:30 Assessment and Plan Assessment and plan (1) PAF (paroxysmal atrial fibrillation): Start date: 07/28/24 Status: Acute Assessment and plan: Patient has a history of atrial fibrillation and tachycardia on digoxin home meds for heart rate control in the setting of previous reaction to Cardizem and beta-gisell; patient reported mild swelling when using CCB and beta-blockers and has refused to take this class of medicine. ? On chronic home oxygen now at baseline 2 L ? Patient on BiPAP at home -will continue BiPAP inpatient ? Digoxin level 1.01?will continue home dose digoxin ? In the setting of heart failure with preserved ejection fraction as listed in point 2.0, -As seen, improvement in heart rate with IV diuresis. As the patient is diuresed were expecting improved heart rate control -Considering cardiology consult on 07/30/2024 if heart rate has not stabil ized (2) Heart failure with preserved ejection fraction (HFpEF, >= 50%): Start date: 07/28/24 Status: Acute Assessment and plan: last echo On 06/19/2024 with an LVEF of 65% with an hypocontractile right ventricle that was mildly enlarged; RVSP was 52 mmHg. Now presenting with acute worsening of right-sided CHF with tachycardia VS atrial fibrillation and responding to IV Lasix. BNP at 3142 on 07/28/2024 and was 3751 on 05/29/2024. Continue IV Lasix twice daily BMP in the morning Qualifiers: Heart failure chronicity: acute on chronic Qualified Code(s): I50.33 - Acute on chronic diastolic (congestive) heart failure (3) Emphysema lung: Status: Chronic Assessment and plan: Continue outpatient respiratory care. Qualifiers: Emphysema type: other Qualified Code(s): J43.8 - Other emphysema (4) Hypercapnic respiratory failure: Status: Chronic Assessment and plan: Patient is known from outpatient pulmonology service and chronic CO2 retention is chronic and is stable at this time- will be trended as needed. She also followed for scarring in right upper lobe and nodularity within the scarring which is stable; had refused workup in the past. Qualifiers: Chronicity: chronic Qualified Code(s): J96.12 - Chronic respiratory failure with hypercapnia (5) Pulmonary hypertension: Status: Chronic Assessment and plan: Patient has past medical history of abnormal CT for which she refused the further workup. RVSP as per echo was 52 mmHg in May 2024. Seen in outpatient pulmonology with last visit on 06/30/2024 Continue follow-up outpatient (6) Chronic obstructive lung disease: Status: Chronic Assessment and plan: No criteria met for acute COPD exacerbation. Continue O2 supplementation and titrate PRN Continue home chronic inhaler therapy Scheduled nebulizers: changed to levalbuterol and ipratropium d/t tachycardia VS albuterol and ipratropium Qualifiers: COPD type: emphysema Emphysema type: unspecified Qualified Code(s): J43.9 - Emphysema, unspecified (7) Anemia: Status: Chronic Assessment and plan: Stablewi H&H 10& 32.9- Continue to follow -no evidence of active blood loss. Qualifiers: Anemia type: iron deficiency Iron deficiency anemia type: chronic blood loss Qualified Code(s): D50.0 - Iron deficiency anemia secondary to blood loss (chronic) (8) GERD (gastroesophageal reflux disease): Status: Chronic Assessment and plan: On PPI. Qualifiers: Esophagitis presence: without esophagitis Qualified Code(s): K21.9 - G lourdes-esophageal reflux disease without esophagitis (9) History of GI diverticular bleed: Status: Chronic Assessment and plan: Avoid anticoagulation patient had significant bleeding in the past. Was on heparin subcu for DVT prophylaxis, this was stopped and SCDs were ordered for DVT prophylaxis Discussed with Dr. Law Subjective Subjective Patient reports: no new complaints, feels better, tolerating liquids well, tolerating a regular diet, voiding w/o difficulty, no bowel movement, shortness of breath (On ambulation now/Recovers once sitting ) and other (Dry nasal mucosa- with epistaxis at home d/t no humidifier in compressor); denies still having pain, nausea, vomiting or fever Exam Narrative Exam Narrative: HENMT: Facial structures with normal appearance Neuro:alert and orientedX 4. No neurological focal deficit Resp:speaks 2-3 word in a row , labored breathing,RLL crackles, diminished left base Cardio: Tele -A-fib HR 150 max this AM/ now 110's sustained irregular rhythm, S1, S2, no murmur, positive bilateral radial and pedal pulses GI: Abdomen is not distended, soft and non tender, bowel sounds are present Back/spine/Pelvis: normal alignment Integumentary: No skin lesions or rash Extremities: strength 5/5 to bilateral lower and upper extremities Psych: RASS 0, congruent mood and normal affect. Objective Last Vital Signs Temp 36.1 C L 07/29/24 15:05 Pulse 105 H 07/29/24 15:05 Resp 18 07/29/24 15:05 BP 128/74 07/29/24 15:05 Pulse Ox 92 07/29/24 15:05 Laboratory Results - last 24 hr 07/28/24 07/28/24 07/28/24 14:17 15:13 16:57 WBC 8.53 RBC 3.81 L Hgb 10.4 L Hct 34.3 L MCV 90 MCH 27.3 MCHC 30.3 L RDW 17.2 H Plt Count 439 H MPV 9.4 Immature Gran % 0.0 Neutrophils % 76.9 Lymphocytes % 6.1 Atypical Lymphs % 0 Monocytes % 9.3 Eosinophils % 6.4 Basophils % 0.5 Nucleated RBC % 0.0 Absolute Neutrophils 6.56 Absolute Lymphocytes 0.52 L Absolute Monocytes 0.79 Absolute Eosinophils 0.55 Absolute Basophils 0.04 RBC Morphology Normal PT INR APTT 31.1 VBG pH 7.32 VBG pCO2 58 H VBG pO2 36 VBG HCO3 30 H VBG Total CO2 32 H VBG O2 Saturation 64 VBG Base Excess 4 H Sodium Potassium Chloride Carbon Dioxide Anion Gap BUN Creatinine Est GFR (CKD-EPI 2020) Glucose Calcium Magnesium 1.5 L Total Bilirubin AST ALT Alkaline Phosphatase Troponin I 10 Total Protein Albumin COVID-19 Source Nasal/Nares SARS-CoV-2 (PCR) Negative 07/28/24 07/28/24 07/29/24 18:20 20:55 06:35 WBC 8.50 RBC 3.66 L Hgb 10.0 L Hct 32.9 L MCV 90 MCH 27.3 MCHC 30.4 L RDW 17.2 H Plt Count 484 H MPV 9.4 Immature Gran % Neutrophils % Lymphocytes % Atypical Lymphs % Monocytes % Eosinophils % Basophils % Nucleated RBC % Absolute Neutrophils Absolute Lymphocytes Absolute Monocytes Absolute Eosinophils Absolute Basophils RBC Morphology PT 10.3 INR 1.0 APTT VBG pH VBG pCO2 VBG pO2 VBG HCO3 VBG Total CO2 VBG O2 Saturation VBG Base Excess Sodium 141 Potassium 4.3 Chloride 101 Carbon Dioxide 33.6 H Anion Gap 4.3 BUN 16 Creatinine 1.1 H Est GFR (CKD-EPI 2020) 52.73 Glucose 130 H Calcium 9.2 Magnesium 1.6 L Total Bilirubin 0.25 AST 11 L ALT 18 Alkaline Phosphatase 131 H Troponin I 11 Total Protein 6.9 Albumin 2.7 L COVID-19 Source SARS-CoV-2 (PCR) Time Spent with Patient Time Spent with Patient: >50 minutes Time was spent: preparing to see the patient(eg.review tests), obtaining and/or reviewing separately otained hiistory, ordering medications,tests, procedures, referring, communicating with other health child care teacher, indepentently interpreting results, counseling the patient and care coordination
[2024-07-29] MEDS: MAGNESIUM SULFATE 4 GM/100 ML BAG IV_INF (16:16)
--- NOTE | 2024-07-29 16:16 | CHAPLAIN ---
Jackie was sitting up in the chair when I stopped in. She acknowledged that we'd met before during previous admissions and told me is fine and did not seem interested in further conversation.
[2024-07-29] MEDS: Ipratropium 0.5 MG/2.5 ML UPD VIAL UPD ×2 (16:41→20:25)
[2024-07-29] MEDS: Levalbuterol 1.25 MG/3 ML UPD VIAL UPD ×2 (16:42→20:25)
[2024-07-30] VITALS (17 sets, daily range): BP systolic 110–136; BP diastolic 63–92; PULSE 83–130; RESP 3–22; TEMP 36.3–36.8; O2SAT 90–99
[2024-07-30] MEDS: Heparin 5,000 UNITS/ML VIAL 5000 UNITS SC ×2 (02:32→10:27)
[2024-07-30 06:51] LABS: Abs Immature Grans 0.09 10^3/uL (0.0-0.06); Absolute Basophil Count 0.04 10^3/uL (0.0-0.2); Absolute Eosinophil Count 0.76 10^3/uL (0.0-0.7); Absolute Lymphocyte Count 0.58 10^3/uL (1.2-3.4); Absolute Monocyte Count 0.79 10^3/uL (0.1-0.8); Absolute Neutrophil Count 5.82 10^3/uL (1.2-6.7); Basophils % 0.5 %; Eosinophils % 9.4 %; HCT 32.2 % (36.0-46.0); Immature Grans % 1.1 %; Lymphocytes % 7.2 %; MCH 27.8 pg (27.0-33.0); MCHC 31.1 % (32.0-36.0); MCV 89 fL (80-95); MPV 9.5 fL (8.0-11.0); Monocytes % 9.8 %; Platelet Count 470 10^3/uL (130-400); RDW-SD 55.9 fL; WBC 8.08 10^3/uL (4.4-10.8)
[2024-07-30 07:14] LABS: Anion Gap 6.2 mmol/L (3-11); BUN 15 mg/dL (7-18); CO2 33.8 mmol/L (21.0-32.0); CREATININE 0.9 mg/dL (0.55-1.02); Calcium 9.1 mg/dL (8.5-10.1); Chloride 99 mmol/L (98-107); Estimated GFR 67.08 (mL/min/1.73m2); Glucose 131 mg/dL (74-106); Magnesium 2.6 mg/dL (1.8-2.4); Potassium 4.3 mmol/L (3.5-5.1); Sodium 139 mmol/L (136-145)
[2024-07-30] MEDS: Budesonide/Formoterol 160/4.5 6 GM 60 PUFF INH IH ×2 (08:00→20:12)
[2024-07-30] MEDS: Ipratropium 0.5 MG/2.5 ML UPD VIAL UPD ×4 (08:01→20:12)
[2024-07-30] MEDS: Levalbuterol 1.25 MG/3 ML UPD VIAL UPD ×4 (08:03→20:15)
[2024-07-30] MEDS: Furosemide 40 MG/4 ML VIAL IVP ×2 (08:09→16:29)
[2024-07-30] MEDS: Acetaminophen 325 MG TAB PO ×3 (08:10→22:44)
[2024-07-30] MEDS: Roflumilast 500 MCG TAB PO (08:10)
[2024-07-30] MEDS: Esomeprazole 40 MG CAPCR PO (08:10)
[2024-07-30] MEDS: Digoxin 0.125 MG TAB PO (08:10)
[2024-07-30] MEDS: Docusate Sodium 100 MG CAP PO ×3 (08:11→21:23)
[2024-07-30] MEDS: amLODIPine 10 MG TAB PO ×2 (08:11→21:23)
[2024-07-30] MEDS: Montelukast 10 MG TAB PO (08:12)
[2024-07-30] MEDS: Normal Saline Flush 10 ML SYR IVP ×3 (08:44→21:24)
[2024-07-30] MEDS: Milk of Magnesia 30 ML CUP PO (10:32)
--- NOTE | 2024-07-30 15:25 | PDOC.CMPRO ---
Date of service: 07/30/24 Time of Service: 15:25 Care Management Progress Note Progress Note Text Progress Note Text: Jackie was sitting in a chair watching TV when CM met with her. She is polite and easy to engage in conversation. She is not planning on discharging until she is off IV Lasix and her afib is controlled. Jackie is getting bored watching TV and accepted a word search book. Of note, Jackie is closely followed by [facility] in the community and is set up with their home monitoring equipment. No changes to discharge plan are made today. Discharge Potential Discharge Needs: PCP F/U Appt and Other (Pulmonology) Anticipated Barriers to Discharge: None Identified Patient/Family Education Needs: Review discharge instructions, discuss Ask Me Three Transportation: Private vehicle Plan: Anticipate Jackie will return home once medically cleared with a resumption of RN, PT, CERTIFIED DENTAL ASSISTANT services. Her son will drive her home via private vehicle. Follow up with PCP and community providers. Jackie has an upcoming appointment with her tassel maker on 08/04/24. CM will follow SDOH(Care Management) Screening Will the Patient Participate in the Screening?: Declined to provide
--- NOTE | 2024-07-30 17:20 | W.PM.PROGNOT ---
Date of Service Date of service: 07/30/24 Time of Service: 12:30 Assessment and Plan Assessment and plan (1) PAF (paroxysmal atrial fibrillation): Start date: 07/28/24 Status: Acute Assessment and plan: As previously discussed, patient has a history of atrial fibrillation and tachycardia on digoxin home meds for heart rate control in the setting of previous reaction to Cardizem and beta-gisell; patient reported mild swelling when using CCB and beta-blockers and has refused to take this class of medicine. ? On chronic home oxygen at 2 L: now at baseline ? Patient on BiPAP at home -will continue BiPAP inpatient ? Digoxin level 1.01?will continue home dose digoxin ? In the setting of heart failure with preserved ejection fraction as listed in point 2.0, -Continued improvement in heart rate with IV diuresis. Might be able to transition to oral furosemide in 24 to 48 hours a -Considering cardiology consult if heart rate has not stabilized with in mind option for dofetilide or amiodarone in the setting of known pulmonary disease (2) Heart failure with preserved ejection fraction (HFpEF, >= 50%): Start date: 07/28/24 Status: Acute Assessment and plan: On 06/19/2024 was LVEF o 65% with an hypocontractile right ventricle that was mildly enlarged; RVSP was 52 mmHg. Presented w acute worsening of right-sided CHF with tachycardia VS atrial fibrillation and still responding well to IV Lasix. BNP at 3142 on 07/28/2024 and was 3751 on 05/29/2024. Continue furosemide 40 mg IV push twice daily BMP in the morning Qualifiers: Heart failure chronicity: acute on chronic Qualified Code(s): I50.33 - Acute on chronic diastolic (congestive) heart failure (3) Emphysema lung: Status: Chronic Assessment and plan: The patient is seen by outpatient pulmonology service -will continue on discharge Qualifiers: Emphysema type: other Qualified Code(s): J43.8 - Other emphysema (4) Hypercapnic respiratory failure: Status: Chronic Assessment and plan: As above She also followed for scarring in right upper lobe and nodularity within the scarring which is stable; had refused workup in the past. Qualifiers: Chronicity: chronic Qualified Code(s): J96.12 - Chronic respiratory failure with hypercapnia (5) Pulmonary hypertension: Status: Chronic Assessment and plan: As previously stated, patient has past medical history of abnormal CT for which she refused the further workup. RVSP as per echo was 52 mmHg in May 2024. Will continue outpatient management (6) Chronic obstructive lung disease: Status: Chronic Assessment and plan: This time, no criteria met for acute COPD exacerbation. Continue O2 supplementation and titrate PRN, now at baseline oxygen requirement Ongoing home chronic inhaler therapy Scheduled nebulizers: Continue levalbuterol and ipratropium Qualifiers: COPD type: emphysema Emphysema type: unspecified Qualified Code(s): J43.9 - Emphysema, unspecified (7) Anemia: Status: Chronic Assessment and plan: Stable H&H, continue to follow -no evidence of active blood loss. Qualifiers: Anemia type: iron deficiency Iron deficiency anemia type: chronic blood loss Qualified Code(s): D50.0 - Iron deficiency anemia secondary to blood loss (chronic) (8) GERD (gastroesophageal reflux disease): Status: Chronic Assessment and plan: Continue with omeprazole Qualifiers: Esophagitis presence: without esophagitis Qualified Code(s): K21.9 - Gastro-esophageal reflux disease without esophagitis (9) History of GI diverticular bleed: Status: Chronic Assessment and plan: Avoid anticoagulation patient had significant bleeding in the past. Heparin for DVT prophylaxis discontinued now SCDs for DVT prophylaxis; patient is on teds from home, Discussed with Dr. Law Subjective Subjective Patient reports: feels better, tolerating liquids well, tolerating a regular diet, voiding w/o difficulty, flatus, no bowel movement and shortness of breath (improving); denies still having pain, nausea, vomiting or fever Exam Narrative Exam Narrative: HENMT: Facial structures with normal appearance Neuro:alert and oriented X 4. No neurological focal deficit Resp:speaks 5-6 word in a row ,RLL fine crackles, diminished left base Cardio: Tele -A-fib HR 130's max this AM/ now mid 80's to110's , S1, S2, no murmur, LE's edema improving -positive bilateral radial and pedal pulses GI: Abdomen is not distended, soft and non tender, bowel sounds are present : No CVA tenderness Back/spine/Pelvis: normal alignment Integumentary: No skin lesions or rash Extremities: strength 5/5 to bilateral lower and upper extremities Psych: RASS 0, congruent mood and normal affect. Objective Last Vital Signs Temp 36.6 C 07/30/24 14:51 Pulse 93 H 07/30/24 16:46 Resp 20 07/30/24 16:46 BP 110/66 07/30/24 14:51 Pulse Ox 98 07/30/24 16:46 Laboratory Results - last 24 hr 07/30/24 06:23 WBC 8.08 RBC 3.60 L Hgb 10.0 L Hct 32.2 L MCV 89 MCH 27.8 MCHC 31.1 L RDW 17.0 H Plt Count 470 H MPV 9.5 Immature Gran % 1.1 Neutrophils % 72.0 Lymphocytes % 7.2 Monocytes % 9.8 Eosinophils % 9.4 Basophils % 0.5 Nucleated RBC % 0.0 Absolute Neutrophils 5.82 Absolute Lymphocytes 0.58 L Absolute Monocytes 0.79 Absolute Eosinophils 0.76 H Absolute Basophils 0.04 Sodium 139 Potassium 4.3 Chloride 99 Carbon Dioxide 33.8 H Anion Gap 6.2 BUN 15 Creatinine 0.9 Est GFR (CKD-EPI 2020) 67.08 Glucose 131 H Calcium 9.1 Magnesium 2.6 H Time Spent with Patient Time Spent with Patient: >50 minutes Time was spent: preparing to see the patient(eg.review tests), obtaining and/or reviewing separately otained hiistory, ordering medications,tests, procedures, referring, communicating with other health child care attendant school, indepentently interpreting results, counseling the patient and care coordination
[2024-07-31] VITALS (8 sets, daily range): BP systolic 101–126; BP diastolic 60–72; PULSE 63–120; RESP 2–20; TEMP 35.9–36.6; O2SAT 91–100
[2024-07-31 07:31] LABS: Abs Immature Grans 0.09 10^3/uL (0.0-0.06); Absolute Basophil Count 0.05 10^3/uL (0.0-0.2); Absolute Eosinophil Count 0.68 10^3/uL (0.0-0.7); Absolute Lymphocyte Count 0.61 10^3/uL (1.2-3.4); Absolute Monocyte Count 0.88 10^3/uL (0.1-0.8); Basophils % 0.7 %; Eosinophils % 8.9 %; HCT 33.4 % (36.0-46.0); HGB 10.2 g/dL (11.2-15.7); Immature Grans % 1.2 %; MCH 27.6 pg (27.0-33.0); MCHC 30.5 % (32.0-36.0); MCV 90 fL (80-95); MPV 9.5 fL (8.0-11.0); Monocytes % 11.6 %; Neutrophils % 69.6 %; Platelet Count 565 10^3/uL (130-400); RDW 17.1 % (11.7-14.6); RDW-SD 56.8 fL; WBC 7.61 10^3/uL (4.4-10.8)
[2024-07-31] MEDS: Acetaminophen 325 MG TAB PO ×3 (07:31→19:53)
[2024-07-31] MEDS: Esomeprazole 40 MG CAPCR PO (07:31)
[2024-07-31 07:49] LABS: Anion Gap 5.4 mmol/L (3-11); BUN 15 mg/dL (7-18); CO2 36.6 mmol/L (21.0-32.0); Calcium 9.6 mg/dL (8.5-10.1); Chloride 98 mmol/L (98-107); Estimated GFR 59.12 (mL/min/1.73m2); Glucose 105 mg/dL (74-106); Potassium 4.7 mmol/L (3.5-5.1); Sodium 140 mmol/L (136-145)
[2024-07-31] MEDS: Ipratropium 0.5 MG/2.5 ML UPD VIAL UPD ×4 (08:00→19:54)
[2024-07-31] MEDS: Budesonide/Formoterol 160/4.5 6 GM 60 PUFF INH IH ×2 (08:03→19:54)
[2024-07-31] MEDS: Levalbuterol 1.25 MG/3 ML UPD VIAL UPD ×4 (08:03→19:54)
[2024-07-31] MEDS: amLODIPine 10 MG TAB PO ×2 (08:52→19:53)
[2024-07-31] MEDS: Docusate Sodium 100 MG CAP PO ×2 (08:52→19:54)
[2024-07-31] MEDS: Montelukast 10 MG TAB PO (08:53)
[2024-07-31] MEDS: Digoxin 0.125 MG TAB PO (08:53)
[2024-07-31] MEDS: Normal Saline Flush 10 ML SYR IVP ×2 (08:54→19:54)
[2024-07-31] MEDS: Polyethylene Glycol 3350 17 GM PACKET PO (08:55)
[2024-07-31] MEDS: Furosemide 40 MG/4 ML VIAL IVP ×2 (08:56→17:55)
--- NOTE | 2024-07-31 12:26 | PGE_ITS ---
Date of Service Date of service: 07/31/24 Time of Service: 12:26 Assessment and Plan Assessment and plan (1) PAF (paroxysmal atrial fibrillation): Status: Acute Assessment and plan: history of atrial fibrillation and tachycardia on digoxin home meds for heart rate control in the setting of previous reaction to Cardizem and beta-gisell; patient reported mild swelling when using CCB and beta-blockers and has refused to take this class of medicine. ? On chronic home oxygen at 2 L: now at baseline ? Patient on BiPAP at home -will continue BiPAP inpatient ? Digoxin level 1.01?will continue home dose digoxin ? In the setting of heart failure with preserved ejection fraction -Continued improvement in heart rate with IV diuresis. Might be able to transition to oral furosemide tomorrow if continues to respond -Considering cardiology consult if heart rate has not stabilized with in mind option for dofetilide or amiodarone in the setting of known pulmonary disease (2) Heart failure with preserved ejection fraction (HFpEF, >= 50%): Status: Acute Assessment and plan: On 06/19/2024 was LVEF 65% with an hypocontractile right ventricle that was mildly enlarged; RVSP was 52 mmHg. Presented w acute worsening of right-sided CHF with tachycardia VS atrial f ibrillation and still responding well to IV Lasix. BNP at 3142 on 07/28/2024 and was 3751 on 05/29/2024. Continue furosemide 40 mg IV push twice daily BMP in the morning Qualifiers: Heart failure chronicity: acute on chronic Qualified Code(s): I50.33 - Acute on chronic diastolic (congestive) heart failure (3) Emphysema lung: Status: Chronic Assessment and plan: The patient is seen by outpatient pulmonology service -will continue on discharge Continue home medications Qualifiers: Emphysema type: other Qualified Code(s): J43.8 - Other emphysema (4) Hypercapnic respiratory failure: Status: Chronic Assessment and plan: As above She also followed for scarring in right upper lobe and nodularity within the scarring which is stable; had refused workup in the past. Qualifiers: Chronicity: chronic Qualified Code(s): J96.12 - Chronic respiratory failure with hypercapnia (5) Pulmonary hypertension: Status: Chronic Assessment and plan: As previously stated, patient has past medical history of abnormal CT for which she refused the further workup. RVSP as per echo was 52 mmHg in May 2024. Will continue outpatient management (6) Chronic obstructive lung disease: Status: Chronic Assessment and plan: This time, no criteria met for acute COPD exacerbation. Continue O2 supplementation and titrate PRN, now at baseline oxygen requirement Ongoing home chronic inhaler therapy Scheduled nebulizers: Continue levalbuterol and ipratropium Qualifiers: COPD type: emphysema Emphysema type: unspecified Qualified Code(s): J43.9 - Emphysema, unspecified (7) Anemia: Status: Chronic Assessment and plan: Stable H&H, continue to follow -no evidence of active blood loss. Qualifiers: Anemia type: iron deficiency Iron deficiency anemia type: chronic blood loss Qualified Code(s): D50.0 - Iron deficiency anemia secondary to blood loss (chronic) (8) GERD (gastroesophageal reflux disease): Status: Chronic Assessment and plan: Continue with omeprazole Qualifiers: Esophagitis presence: without esophagitis Qualified Code(s): K21.9 - Gastro-esophageal reflux disease without esophagitis (9) History of GI diverticular bleed: Status: Chronic Assessment and plan: Avoid anticoagulation patient had significant bleeding in the past. Heparin for DVT prophylaxis discontinued now SCDs for DVT prophylaxis; patient is on teds from home, Discussed with Dr. Gonzáles Subjective Subjective Patient reports: bowel movement, shortness of breath and afebrile Objective Last Vital Signs Temp 35.9 C L 07/31/24 11:13 Pulse 63 07/31/24 11:16 Resp 16 07/31/24 11:16 BP 101/70 07/31/24 11:13 Pulse Ox 93 07/31/24 11:16 Laboratory Results - last 24 hr 07/31/24 06:50 WBC 7.61 RBC 3.70 L Hgb 10.2 L Hct 33.4 L MCV 90 MCH 27.6 MCHC 30.5 L RDW 17.1 H Plt Count 565 H MPV 9.5 Immature Gran % 1.2 Neutrophils % 69.6 Lymphocytes % 8.0 Monocytes % 11.6 Eosinophils % 8.9 Basophils % 0.7 Nucleated RBC % 0.0 Absolute Neutrophils 5.30 Absolute Lymphocytes 0.61 L Absolute Monocytes 0.88 H Absolute Eosinophils 0.68 Absolute Basophils 0.05 Sodium 140 Potassium 4.7 Chloride 98 Carbon Dioxide 36.6 H Anion Gap 5.4 BUN 15 Creatinine 1.0 Est GFR (CKD-EPI 2020) 59.12 Glucose 105 Calcium 9.6 Time Spent with Patient Time Spent with Patient: 35-49 minutes Time was spent: preparing to see the patient(eg.review tests), obtaining and/or reviewing separately otained hiistory, ordering medications,tests, procedures, indepentently interpreting results and counseling the patient
--- NOTE | 2024-07-31 12:35 | NUR.NOTE ---
Reviewed documentation with Savanah Sánchez, student [employer]. Radha Ruelas, MSN, RNC-OB, clinical instructor
--- NOTE | 2024-07-31 17:29 | PDOC.CMPRO ---
Date of service: 07/31/24 Time of Service: 17:29 Care Management Progress Note Progress Note Text Progress Note Text: Jackie was sitting up in her chair when CM met with her. She stated that she is doing ok, but is frustrated with having to be hospitalized. She reported that the provider is managing her medication for afib, which is proving to be difficult due to multiple allergies she has to medications. She stated that when ready, her son will pick her up. CM will continue to follow. Discharge Potential Discharge Needs: PCP F/U Appt Anticipated Barriers to Discharge: None Identified Patient/Family Education Needs: Review discharge instructions, discuss Ask Me Three Transportation: Private vehicle Plan: Anticipate Jackie will return home once medically cleared with a resumption of RN, PT, WELDER MACHINE OPERATOR services. Her son will drive her home via private vehicle. Follow up with PCP and community providers. Jackie has an upcoming appointment with her button station worker on 08/04/24. CM will follow. SDOH(Care Management) Screening Will the Patient Participate in the Screening?: Declined to provide
[2024-08-01] VITALS (12 sets, daily range): BP systolic 110–114; BP diastolic 70–74; PULSE 71–127; RESP 5–36; TEMP 36.4–36.6; O2SAT 90–98
[2024-08-01] MEDS: Esomeprazole 40 MG CAPCR PO (07:28)
[2024-08-01] MEDS: Ipratropium 0.5 MG/2.5 ML UPD VIAL UPD ×4 (07:50→20:10)
[2024-08-01] MEDS: Levalbuterol 1.25 MG/3 ML UPD VIAL UPD ×4 (07:51→20:10)
[2024-08-01] MEDS: Budesonide/Formoterol 160/4.5 6 GM 60 PUFF INH IH ×2 (07:54→20:10)
[2024-08-01] MEDS: Polyethylene Glycol 3350 17 GM PACKET PO (08:05)
[2024-08-01] MEDS: Furosemide 40 MG/4 ML VIAL IVP (08:06)
[2024-08-01] MEDS: Normal Saline Flush 10 ML SYR IVP ×2 (08:06→22:04)
[2024-08-01] MEDS: Digoxin 0.125 MG TAB PO (08:07)
[2024-08-01] MEDS: Montelukast 10 MG TAB PO (08:07)
[2024-08-01] MEDS: amLODIPine 10 MG TAB PO ×2 (08:07→20:06)
[2024-08-01] MEDS: Docusate Sodium 100 MG CAP PO ×3 (08:08→20:06)
[2024-08-01] MEDS: Acetaminophen 325 MG TAB PO ×2 (11:32→20:06)
--- NOTE | 2024-08-01 17:48 | PGE_ITS ---
Date of Service Date of service: 08/01/24 Time of Service: 17:48 Assessment and Plan Assessment and plan (1) PAF (paroxysmal atrial fibrillation): Status: Acute Assessment and plan: history of atrial fibrillation and tachycardia on digoxin home meds for heart rate control in the setting of previous reaction to Cardizem and beta-gisell; patient reported mild swelling when using CCB and beta-blockers and has refused to take this class of medicine. ? On chronic home oxygen at 2 L: now at baseline ? Patient on BiPAP at home -will continue BiPAP inpatient ? Digoxin level 1.01?will continue home dose digoxin ? In the setting of heart failure with preserved ejection fraction -Continued improvement in heart rate with IV diuresis. Might be able to transition to oral furosemide tomorrow if continues to respond -Considering cardiology consult if heart rate has not stabilized with in mind option for dofetilide or amiodarone in the setting of known pulmonary disease (2) Heart failure with preserved ejection fraction (HFpEF, >= 50%): Status: Acute Assessment and plan: On 06/19/2024 was LVEF 65% with an hypocontractile right ventricle that was mildly enlarged; RVSP was 52 mmHg. Presented w acute worsening of right-sided CHF with tachycardia VS atrial f ibrillation and still responding well to IV Lasix. BNP at 3142 on 07/28/2024 and was 3751 on 05/29/2024. Continue furosemide 40 mg IV push twice daily BMP in the morning Qualifiers: Heart failure chronicity: acute on chronic Qualified Code(s): I50.33 - Acute on chronic diastolic (congestive) heart failure (3) Emphysema lung: Status: Chronic Assessment and plan: The patient is seen by outpatient pulmonology service -will continue on discharge Continue home medications Qualifiers: Emphysema type: other Qualified Code(s): J43.8 - Other emphysema (4) Hypercapnic respiratory failure: Status: Chronic Assessment and plan: As above She also followed for scarring in right upper lobe and nodularity within the scarring which is stable; had refused workup in the past. Qualifiers: Chronicity: chronic Qualified Code(s): J96.12 - Chronic respiratory failure with hypercapnia (5) Pulmonary hypertension: Status: Chronic Assessment and plan: As previously stated, patient has past medical history of abnormal CT for which she refused the further workup. RVSP as per echo was 52 mmHg in May 2024. Will continue outpatient management (6) Chronic obstructive lung disease: Status: Chronic Assessment and plan: This time, no criteria met for acute COPD exacerbation. Continue O2 supplementation and titrate PRN, now at baseline oxygen requirement Ongoing home chronic inhaler therapy Scheduled nebulizers: Continue levalbuterol and ipratropium Qualifiers: COPD type: emphysema Emphysema type: unspecified Qualified Code(s): J43.9 - Emphysema, unspecified (7) Anemia: Status: Chronic Assessment and plan: Stable H&H, continue to follow -no evidence of active blood loss. Qualifiers: Anemia type: iron deficiency Iron deficiency anemia type: chronic blood loss Qualified Code(s): D50.0 - Iron deficiency anemia secondary to blood loss (chronic) (8) GERD (gastroesophageal reflux disease): Status: Chronic Assessment and plan: Continue with omeprazole Qualifiers: Esophagitis presence: without esophagitis Qualified Code(s): K21.9 - Gastro-esophageal reflux disease without esophagitis (9) History of GI diverticular bleed: Status: Chronic Assessment and plan: Avoid anticoagulation patient had significant bleeding in the past. Heparin for DVT prophylaxis discontinued now SCDs for DVT prophylaxis; patient is on teds from home, Discussed with Dr. Gonzáles Subjective Subjective Patient reports: no new complaints, feels better, tolerating liquids well, tolerating a regular diet, shortness of breath (with activity but improving) and afebrile Interval history since last seen: Feels like she is getting over diuresed Exam Const General: cooperative, comfortable and no acute distress Nutritional Appearance: average body habitus Orientation: alert, awake and oriented x3 HENMD Head: normal to inspection Ears: external ears normal General nose exam: external nose normal Face and sinus: dry mucous membranes Mouth: moist mucous membranes Eyes General: appearance normal, both eyes and all related structures Neck Neck: normal visual inspection Resp Effort & Inspection: normal respiratory effort Auscultation: diminished lung sounds Cardio Jugular venous pressure: no JVD Rate: regular rate Skin General skin exam: no rashes or lesions noted Neuro General: patient alert and patient oriented x3 Extrem General: normal to inspection Psych Mental Status: mental status grossly normal Objective Last Vital Signs Temp 36.4 C L 08/01/24 15:22 Pulse 106 H 08/01/24 17:06 Resp 16 08/01/24 15:22 BP 110/70 08/01/24 15:22 Pulse Ox 96 08/01/24 16:54 Time Spent with Patient Time Spent with Patient: 35-49 minutes Time was spent: preparing to see the patient(eg.review tests), obtaining and/or reviewing separately otained hiistory, ordering medications,tests, procedures, indepentently interpreting results and counseling the patient
[2024-08-02] VITALS (13 sets, daily range): BP systolic 113–131; BP diastolic 58–71; PULSE 79–127; RESP 5–32; TEMP 36.3–37; O2SAT 90–98
[2024-08-02] MEDS: Acetaminophen 325 MG TAB PO ×3 (01:43→21:44)
[2024-08-02 06:24] LABS: Abs Immature Grans 0.09 10^3/uL (0.0-0.06); Absolute Basophil Count 0.05 10^3/uL (0.0-0.2); Absolute Lymphocyte Count 0.58 10^3/uL (1.2-3.4); Absolute Monocyte Count 0.78 10^3/uL (0.1-0.8); Absolute Neutrophil Count 5.09 10^3/uL (1.2-6.7); Basophils % 0.7 %; Eosinophils % 7.1 %; HCT 32.9 % (36.0-46.0); Immature Grans % 1.3 %; Lymphocytes % 8.2 %; MCH 27.4 pg (27.0-33.0); MCHC 30.4 % (32.0-36.0); MCV 90 fL (80-95); MPV 9.4 fL (8.0-11.0); Neutrophils % 71.7 %; Platelet Count 598 10^3/uL (130-400); RBC 3.65 10^6/uL (3.93-5.22); RDW 16.8 % (11.7-14.6); RDW-SD 55.9 fL; WBC 7.09 10^3/uL (4.4-10.8)
[2024-08-02 06:42] LABS: Anion Gap 1.9 mmol/L (3-11); BUN 14 mg/dL (7-18); CO2 37.1 mmol/L (21.0-32.0); CREATININE 0.9 mg/dL (0.55-1.02); Chloride 98 mmol/L (98-107); Estimated GFR 67.08 (mL/min/1.73m2); Glucose 127 mg/dL (74-106); Potassium 4.6 mmol/L (3.5-5.1); Sodium 137 mmol/L (136-145)
[2024-08-02] MEDS: Levalbuterol 1.25 MG/3 ML UPD VIAL UPD ×4 (07:43→21:16)
[2024-08-02] MEDS: Ipratropium 0.5 MG/2.5 ML UPD VIAL UPD ×4 (07:43→21:17)
[2024-08-02] MEDS: Budesonide/Formoterol 160/4.5 6 GM 60 PUFF INH IH ×2 (07:49→21:22)
[2024-08-02] MEDS: Digoxin 0.125 MG TAB PO (08:46)
[2024-08-02] MEDS: Esomeprazole 40 MG CAPCR PO (08:46)
[2024-08-02] MEDS: Montelukast 10 MG TAB PO (08:46)
[2024-08-02] MEDS: amLODIPine 10 MG TAB PO ×2 (08:47→21:18)
[2024-08-02] MEDS: Docusate Sodium 100 MG CAP PO ×3 (08:47→21:18)
[2024-08-02] MEDS: Furosemide 40 MG TAB PO (08:47)
[2024-08-02] MEDS: Polyethylene Glycol 3350 17 GM PACKET PO (08:48)
[2024-08-02] MEDS: Normal Saline Flush 10 ML SYR IVP ×2 (08:48→21:18)
[2024-08-03] VITALS (8 sets, daily range): BP systolic 110–126; BP diastolic 51–59; PULSE 78–91; RESP 5–32; TEMP 36.4–36.7; O2SAT 93–100
[2024-08-03] MEDS: Ipratropium 0.5 MG/2.5 ML UPD VIAL UPD ×2 (08:18→11:03)
[2024-08-03] MEDS: Levalbuterol 1.25 MG/3 ML UPD VIAL UPD ×2 (08:18→11:03)
[2024-08-03] MEDS: Budesonide/Formoterol 160/4.5 6 GM 60 PUFF INH IH (08:18)
[2024-08-03] MEDS: Polyethylene Glycol 3350 17 GM PACKET PO (08:39)
--- NOTE | 2024-08-03 08:40 | PDOC.CMPRO ---
Date of service: 08/03/24 Time of Service: 08:40 Care Management Progress Note Progress Note Text Progress Note Text: Jackie is sitting in her chair watching TV when CM met with her. Per pt, she needs to see a property coordinator before she leaves. CM will seek clarification. CM will follow. Discharge Anticipated Barriers to Discharge: None Identified Patient/Family Education Needs: Review discharge instructions, discuss Ask Me Three Transportation: Private vehicle Plan: Anticipate Jackie will return home once medically cleared with a resumption of RN, PT, FIELD PROPERTY LOSS SPECIALIST services. Her son will drive her home via private vehicle. Follow up with PCP and community providers. Jackie has an upcoming appointment with her alteration specialist on 08/04/24. CM will follow SDOH(Care Management) Screening Will the Patient Participate in the Screening?: Declined to provide
[2024-08-03] MEDS: amLODIPine 10 MG TAB PO (08:41)
[2024-08-03] MEDS: Esomeprazole 40 MG CAPCR PO (08:41)
[2024-08-03] MEDS: Docusate Sodium 100 MG CAP PO ×2 (08:41→14:51)
[2024-08-03] MEDS: Montelukast 10 MG TAB PO (08:42)
[2024-08-03] MEDS: Acetaminophen 325 MG TAB PO ×2 (08:42→14:51)
[2024-08-03] MEDS: Digoxin 0.125 MG TAB PO (08:43)
[2024-08-03] MEDS: Furosemide 20 MG TAB PO (08:44)
[2024-08-03] MEDS: Normal Saline Flush 10 ML SYR IVP (08:47)
--- NOTE | 2024-08-03 11:51 | CMDISCH_ITS ---
Date of service: 08/03/24 Time of Service: 15:31 LACE Index Scoring Tool Questions: Length of Stay (in days): 4 - 6 Was the patient admitted via the E.D.?: Yes Comorbidities: Cerebrovascular Disease, Congestive Heart Failure and Chronic Pulmonary Disease E.D. Visits: 4 Answers: Total Score: 16 Risk of Readmission: High Risk Care Management Discharge Plan Reason for Hospitalization: New onset afib, CHF Discharge Plan: Discharge home with resumption of [facility] services. Follow up with community providers and discharge plan of care as instructed. Son to provide transportation home. Patient/Family Education Needs: Review discharge instructions and limitations, discussion of self care needs including ask me three. Services Needed at Discharge: Home Health Care Services (Resumption of [facility] RN, PT, PHARMACIST HELPER) SDOH Health Related Social Needs: Health related social needs inadequate housing(Z59.1) Health related social needs details lives with son
--- NOTE | 2024-08-03 15:40 | DSE_ITS ---
Date of service: 08/03/24 Time of Service: 15:41 DS: Diagnosis Discharge Diagnosis (1) PAF (paroxysmal atrial fibrillation): Status: Acute (2) Heart failure with preserved ejection fraction (HFpEF, >= 50%): Status: Acute (3) Emphysema lung: Status: Chronic (4) Hypercapnic respiratory failure: Status: Chronic (5) Pulmonary hypertension: Status: Chronic (6) Chronic obstructive lung disease: Status: Chronic (7) Anemia: Status: Chronic (8) GERD (gastroesophageal reflux disease): Status: Chronic (9) History of GI diverticular bleed: Status: Chronic Discharge Plan Disposition Patient Disposition: Home W/Home Health Services Condition: Improving Discharge Details Reason For Visit: New onset A-Fib, CHF Admit Date/Time: 07/28/24 16:25 Admit Provider: Allan Law Attending Provider: Allan Law Primary Care Provider: Deven Collier Hospital Course Hospital Course: Reason for Admission: This 73-year-old female with a history of recurrent atrial fibrillation, COPD, emphysema, and right-sided heart failure, who presented to the [facility] ED with worsening leg edema, shortness of breath, and a racing heart. She was concerned about moderate heart failure. She had been on chronic Lasix at home, and was admitted for further management, including IV Lasix for symptom control and lab monitoring. Hospital Course: * Atrial Fibrillation (AF): The patient has a long history of paroxysmal atrial fibrillation and has previously used diltiazem and metoprolol, both of which caused significant swelling around her mouth. Due to this, she refuses to take calcium channel blockers or beta-blockers. On admission, the patient was noted to have a rapid ventricular response, which was asymptomatic, and she co ntinued on digoxin for rate control. Although the IV Lasix improved her shortness of breath and slightly reduced leg edema, her tachycardia persisted. Troponins were negative, and proBNP was elevated but stable. * Heart Failure (Right-sided, likely exacerbated by COPD and emphysema): The patient has chronic right-sided heart failure, managed with chronic Lasix. She had IV Lasix upon admission, which improved her shortness of breath but did not resolve the tachycardia. Leg edema slightly improved during hospitalization. She was not started on any additional heart failure therapies due to her refusal to trial calcium channel blockers or beta-blockers again. * Gastrointestinal Issues: The patient has a significant history of GI bleed, and she is not on anticoagulation due to this concern. Upper endoscopy in the past revealed gastric polyps, and lower endoscopy showed diverticulosis. There was no recent GI bleeding during this hospitalization, and her chronic anemia remained stable, with an intermittently elevated platelet count most likely reactive. * Chronic Anemia: The patient's chronic anemia remains stable and did not req uire intervention during her hospitalization. * Pulmonary: She has significant COPD and emphysema, with right-sided heart failure. She is followed by pulmonology, and no acute pulmonary issues arose during this admission. Discharge Diagnosis: * Paroxysmal Atrial Fibrillation (not anticoagulated due to previous GI bleed) * Right-Sided Heart Failure, likely secondary to COPD/emphysema * Chronic Anemia (stable) * Edema (improved with diuresis) * Tachycardia (asymptomatic) Medications at Discharge: * Lasix: Continue as previously prescribed for edema management * Digoxin: Continue as previously prescribed for heart rate control * Iron Supplements: Continue (for chronic anemia) * Other Medications: Continue current home medications as appropriate (e.g., inhalers for COPD) Follow-Up Care: * Pulmonology: Continue follow-up with local supervisor asbestos removal for COPD and emphysema management. * Cardiology: A follow-up appointment with cardiology is recommended to reassess her atrial fibrillation management and heart failure status. She will be referred for review of treatment options for heart rate control, given her refusal to trial calcium channel blockers or beta-blockers. * Primary Care: Follow up with primary care provider for ongoing care of anemia, GI issues, and general health. Patient Education: * Heart Failure: The patient was educated on the signs and symptoms of heart failure exacerbation, including increased shortness of breath, leg swelling, and weight gain. She was instructed to monitor her weight daily and report any sudden changes. * Atrial Fibrillation: The patient was informed about her condition, including the importance of managing her atrial fibrillation despite her refusal to take calcium channel blockers or beta-blockers. She was advised to follow up with cardiology to explore other treatment options. * Diet and Activity: The patient was advised to maintain a low-sodium diet and avoid excessive fluid retention. She was also instructed on appropriate physical activity and to avoid overexertion. Discharge Instructions: * Continue Lasix as prescribed for edema management. * Take digoxin as prescribed for rate control. * Monitor for worsening edema, shortness of breath, or weight gain. * Follow-up appointments as outlined above. * DNR/DNI status: The patient?s wishes regarding resuscitation were reviewed, and she remains a DNR/DNI. Home Meds and New Rx's Prescriptions: Continued amlodipine 10 mg tablet 10 mg PO BID Qty: 180 3RF digoxin 125 mcg (0.125 mg) tablet 125 mcg PO QAM Qty: 90 4RF esomeprazole magnesium 40 mg capsule,delayed release(DR/EC) 40 mg PO DAILY Qty: 90 3RF fluticasone propion-salmeterol [Advair Diskus] 250-50 mcg/dose blister with device 1 inh Inhalation BID Qty: 3 4RF furosemide 20 mg tablet See Rx Instructions .ROUTE .COMPLEX Qty: 135 4RF Dose Instruction: TAKE 1 TABLET (20MG) BY MOUTH EVERY OTHER DAY ALTERNATING WITH TAKING 2 TABLETS (40MG) BY MOUTH EVERY OTHER DAY Rx Instructions: TAKE 1 TABLET (20MG) BY MOUTH EVERY OTHER DAY ALTERNATING WITH TAKING 2 TABLETS (40MG) BY MOUTH EVERY OTHER DAY montelukast 10 mg tablet 10 mg PO DAILY Qty: 90 3RF docusate sodium [Colace] 100 mg capsule 100 mg PO DAILY Qty: 90 4RF albuterol sulfate 90 mcg/actuation HFA aerosol inhaler 2 puff inhalation Q6H PRN (Reason: shortness of breath or wheezing) Qty: 8.5 12RF ipratropium-albuterol 0.5 mg-3 mg(2.5 mg base)/3 mL solution for nebulization 3 ml inhalation QID Qty: 180 0RF levalbuterol HCl 1.25 mg/3 mL solution for nebulization 1.25 mg inhalation Q4H PRN (Reason: shortness of breath or wheezing) Qty: 90 0RF acetaminophen 500 mg Tablet 1,000 mg PO PRN PRN guaifenesin [Mucinex] 600 mg tablet extended release 12hr 600 mg PO Q12H PRNQty: 10 0RF Discharge Instructions Additional Instructions: Resumption of home health nursing, PT, [facility]. Stand Alone Forms: Nursing Discharge Form Referrals: Deven Collier NP [Primary Care Provider] - 08/11/24 10:00 am (1-2 weeks post hospitalization.) Activity:: Activity as Tolerated Equipment/Supplies:: No Equipment Needed Diet:: As Tolerated Discharge Orders Discharge Orders: Discharge Order (Routine); Ordered 08/03/24 Ordered By: Gladys Leo Discharge Data Discharge Date/Time-TO BE ENTERED AT DEPARTURE: 08/03/24 17:19 DS: Summary Time Spent with Patient providing and/or coordinating discharge services: Greater than 30 minutes Status at Discharge Functional status at discharge: independent ambulation Overall status at discharge: patient is back to baseline Mental Status: mental status grossly normal Speech and Movement: speech and movement normal Mood: congruent mood Affect: normal affect Quality:SDOH Health Related Social Needs: Health related social needs inadequate housing(Z59.1) Health related social needs details lives with son Exam Const General: cooperative, comfortable and no acute distress Nutritional Appearance: average body habitus Orientation: alert, awake and oriented x3 HENMT Head: normal to inspection Ears: external ears normal General nose exam: external nose normal Face and sinus: dry mucous membranes Mouth: moist mucous membranes Eyes General: appearance normal, both eyes and all related structures Neck Neck: normal visual inspection Resp Effort & Inspection: normal respiratory effort Auscultation: diminished lung sounds Cardio Jugular venous pressure: no JVD Rate: regular rate Skin General skin exam: no rashes or lesions noted Neuro General: patient alert and patient oriented x3 Extrem General: normal to inspection Psych Mental Status: mental status grossly normal Speech and Movement: speech and movement normal Mood: congruent mood Affect: normal affect DS: Data Vitals/I&O Vitals and I&O: Vital Signs Temperature 36.7 C 08/03/24 15:15 Temperature Source Tympanic 08/03/24 15:15 Pulse 86 08/03/24 15:15 Pulse Rhythm Irregular 07/28/24 17:24 Pulse 118 H 07/28/24 16:50 Respiratory Rate 17 08/03/24 15:15 Respiratory Effort Short of Breath, Labored, Pursed Lip 07/28/24 17:24 Respiratory Depth Shallow 07/28/24 17:24 Respiratory Pattern Tachypnea 07/28/24 17:24 Blood Pressure 123/59 L 08/03/24 15:15 Blood Pressure Mean 88 07/28/24 17:02 Blood Pressure Position Sitting 07/28/24 13:51 Pulse Oximetry 96 08/03/24 15:15 Oxygen Delivery Method Nasal Cannula 08/03/24 15:15 Oxygen Flow Rate 2 08/03/24 15:15 Pain Level 4 08/03/24 11:20 Comment Patient stated that she told nurse already about headache 5/10. 08/03/24 07:32 Intake & Output 08/02/24 08/03/24 08/03/24 23:59 11:59 23:59 Intake Total 110 / 520 980 / 980 Output Total 600 / 1100 300 / 300 Balance -490 / -580 -300 / 680 980 / 680 Weight 65.8 kg Intake: IV Oral 100 / 500 980 / 980 Output: Urine 600 / 1100 300 / 300 Other: Urine Color Yellow Yellow Yellow Urine Appearance Clear Clear Clear Urine Odor Normal Normal Stool Size Moderate Small Small Stool Characteristics Soft Soft Soft Formed Brown Brown PFSH All Active Problems (Updated 07/28/24 @ 18:34 by Allan Law) PAF (paroxysmal atrial fibrillation) (Acute) History of GI diverticular bleed (Chronic) Chronic respiratory failure (Acute) Emphysema lung (Chronic) Goals of care, counseling/discussion (Acute) Hypercapnic respiratory failure (Chronic) Right ventricular failure (Acute) Pulmonary infiltrates (Acute) Pulmonary hypertension (Chronic) Chronic hypoxic respiratory failure (Acute) Sacral decubitus ulcer (Acute) Uvular swelling (Acute) Anemia (Chronic) Chronic obstructive lung disease (Chronic) h/o tobacco use, quit 2008 Heart failure with preserved ejection fraction (HFpEF, >= 50%) (Acute) CAP (community acquired pneumonia) (Acute) COPD exacerbation (Acute) Cervical arthritis with myelopathy (Acute) Arthritis (Acute 02/10/13) Osteoporosis (Acute 01/14/08) Tachycardia (Chronic) GERD (gastroesophageal reflux disease) (Chronic) Medical History (Updated 07/28/24 @ 18:34 by Allan Law) GI bleed Hypomagnesemia Bilateral lower extremity edema Acute respiratory failure with hypoxia HTN (hypertension) COVID-[address] Tobacco dependence due to cigarettes Quit smoking when she was 59 years old COVID-19 -associated with COPD exacerbation Parotid mass Resolved after 3 months without intervention Acute on chronic respiratory failure with hypoxia and hypercapnia Acute on chronic diastolic CHF (congestive heart failure) CAP (community acquired pneumonia) GERD (gastroesophageal reflux disease) HTN (hypertension) Surgical History Endoscopic Carpal Tunnel release (03/31/13) Left 7.2.13 Family History Mother Essential hypertension Hyperlipidemia Adopted Dementia Father Heart disease Neoplasm LUNG Lung cancer Sister No problems noted. Sister No problems noted. Brother No problems noted. Brother No problems noted. Maternal Grandfather Stroke Paternal Grandfather Heart disease Maternal Grandmother Heart disease Paternal Grandmother Stroke Son Diabetes Essential hypertension Daughter No problems noted. Social History Smoking/Tobacco Use Status: Former Tobacco Use tobacco type: cigarettes Quit Date: 09/30/13 Tobacco: How many years used: 56 Quit status: quit date established Second Hand Exposure: Yes Smoking risk assessment performed?: Yes Alcohol Intake: never Drug use: Never Substance use type: does not use Counseling given: No Counseling provided: none Caregiver/Support person: No Household members: family Housing: house Communication Needs: None Do you need help understanding health information?: Never Pets and animals: Yes Pets and animals: dog(s) Sexually active: No Do you think of yourself as: straight/heterosexual Current gender identity: female What is your relationship status?: How often do you talk on the phone with friends or family?: three or more times per week How often do you get together with friends or relatives?: three or more times per week Do you belong to any clubs or organized social groups?: no Panel score (0-1 are the most socially isolated patients): 1 What type of physical activity do you participate in: none Special juan needs: No Seatbelt use: sometimes Helmet use: No Drive intox or ride w/intox cdl driver: No Do you feel safe at home: Yes Do you feel safe in your relationship?: Yes Additional Social history: Lives with Son on [facility] Female Reproductive History Menstrual Menopause type: natural Time Spent with Patient Time Spent with Patient: 45-69 minutes Time was spent: preparing to see the patient(eg.review tests), ordering medicat ions,tests, procedures, referring, communicating with other health youth care worker, indepentently interpreting results, counseling the patient and care coordination
--- NOTE | 2024-08-04 12:36 | PDOC.HHF2F_ITS ---
Home Health Referral Home Health Orders Clinical synopsis of why skilled professionals are needed: This 73-year-old female with a history of recurrent atrial fibrillation, COPD, emphysema, and right-sided heart failure, who presented to the [facility] ED with worsening leg edema, shortness of breath, and a racing heart. She was concerned about moderate heart failure. She had been on chronic Lasix at home, and was admitted for further management, including IV Lasix for symptom control and lab monitoring. Hospital Course: * Atrial Fibrillation (AF): The patient has a long history of paroxysmal atrial fibrillation and has previously used diltiazem and metoprolol, both of which caused significant swelling around her mouth. Due to this, she refuses to take calcium channel blockers or beta-blockers. On admission, the patient was noted to have a rapid ventricular response, which was asymptomatic, and she continued on digoxin for rate control. Although the IV Lasix improved her shortness of breath and slightly reduced leg edema, her tachycardia persisted. Troponins were negative, and proBNP was elevated but stable. * Heart Failure (Right-sided, likely exacerbated by COPD and emphysema): The patient has chronic right-sided heart failure, managed with chronic Lasix. She had IV Lasix upon admission, which improved her shortness of breath but did not resolve the tachycardia. Leg edema slightly improved during hospitalization. She was not started on any additional heart failure therapies due to her refusal to trial calcium channel blockers or beta-blockers again. * Gastrointestinal Issues: The patient has a significant history of GI bleed, and she is not on anticoagulation due to this concern. Upper endoscopy in the past revealed gastric polyps, and lower endoscopy showed diverticulosis. There was no recent GI bleeding during this hospitalization, and her chronic anemia remained stable, with an intermittently elevated platelet count most likely reactive. * Chronic Anemia: The patient's chronic anemia remains stable and did not require intervention during her hospitalization. * Pulmonary: She has significant COPD and emphysema, with right-sided heart failure. She is followed by pulmonology, and no acute pulmonary issues arose during this admission. Discharge Diagnosis: * Paroxysmal Atrial Fibrillation (not anticoagulated due to previous GI bleed) * Right-Sided Heart Failure, likely secondary to COPD/emphysema * Chronic Anemia (stable) * Edema (improved with diuresis) * Tachycardia (asymptomatic) Medications at Discharge: * Lasix: Continue as previously prescribed for edema management * Digoxin: Continue as previously prescribed for heart rate control * Iron Supplements: Continue (for chronic anemia) * Other Medications: Continue current home medications as appropriate (e.g., inhalers for COPD) Follow-Up Care: * Pulmonology: Continue follow-up with local team foreman for COPD and emphysema management. * Cardiology: A follow-up appointment with cardiology is recommended to reassess her atrial fibrillation management and heart failure status. She will be referred for review of treatment options for heart rate control, given her refusal to trial calcium channel blockers or beta-blockers. * Primary Care: Follow up with primary care provider for ongoing care of anemia, GI issues, and general health. Patient Education: * Heart Failure: The patient was educated on the signs and symptoms of heart failure exacerbation, including increased shortness of breath, leg swelling, and weight gain. She was instructed to monitor her weight daily and report any sudden changes. * Atrial Fibrillation: The patient was informed about her condition, including the importance of managing her atrial fibrillation despite her refusal to take calcium channel blockers or beta-blockers. She was advised to follow up with cardiology to explore other treatment options. * Diet and Activity: The patient was advised to maintain a low-sodium diet and avoid excessive fluid retention. She was also instructed on appropriate physical activity and to avoid overexertion. Discharge Instructions: * Continue Lasix as prescribed for edema management. * Take digoxin as prescribed for rate control. * Monitor for worsening edema, shortness of breath, or weight gain. * Follow-up appointments as outlined above. * DNR/DNI status: The patient?s wishes regarding resuscitation were reviewed, and she remains a DNR/DNI. Medical diagnosis necessitation home health referral: Atrial fibrillation, congestive heart failure Registered Nurse: Check all that apply Instruct on new or changed medication(s)/assess compliance: Ordered Assess for exacerbation of medical condition, instruct patient/caregivers on signs and symptoms to report for early detection: Ordered Other: hematochezia, pneumonia Physical Therapist: Check all that apply Increase strength & endurance for safe mobility at home: Ordered To design/establish home maintenance program: Ordered Fall reduction therapy program for patient with history of frequent falls: Ordered Home safety evaluation and teaching/gait training including stair management (if applicable): Ordered Better Breathing Program: Ordered Other: PT note: Activity tolerance improving. Patient now more able to appreciate being able to feel her symptoms in relation to desaturation so she is more keen about activity pacing/cessation to minimize SOB and fatigue. Plan: Regain PLOF of modified independent with use of FWW for indoor ambulation. Hotel Maintenance Worker: Assist with community resources: Ordered Assist with skilled nursing care planning: Ordered Home Bound Status Requires the aid of supportive device (check all that apply): Walker Patient has a condition such that leaving home is medically contraindicated (Describe): Patient requires oxygen Describe why leaving home would require a considerable and taxing effort: Requires frequent rest periods, Oxygen and Safety Concerns: describe Encounter Date and Reason: I certify that a FTF encounter for this patient was performed on August 04, 2024 and that such encounter was related to the primary reason the patient requires home health services. The encounter was conducted in the following manner: * By me as the certifying physician, MACHINE TOOL DESIGNER, PA or * By an inpatient physician, MACHINE TOOL DESIGNER or PA during an inpatient stay who communicated findings to me, Certification And Authentication I certify that I composed the above information based on my clinical judgment relating to this patient's medical condition and, if applicable, clinical findings communicated to me by the NPP or inpatient physician who performed the FTF encounter. Name of Provider that will be monitoring home health services: Deven Roberto
--- NOTE | 2024-09-06 11:40 | W.PM.PROGNOT ---
Date of Service Date of service: 08/02/24 Time of Service: 11:00 Assessment and Plan Assessment and plan (1) PAF (paroxysmal atrial fibrillation): Assessment and plan: history of atrial fibrillation and tachycardia on digoxin home meds for heart rate control in the setting of previous reaction to Cardizem and beta-gisell; patient reported mild swelling when using CCB and beta-blockers and has refused to take this class of medicine. ? On chronic home oxygen at 2 L: now at baseline ? Patient on BiPAP at home -will continue BiPAP inpatient ? Digoxin level 1.01?will continue home dose digoxin ? In the setting of heart failure with preserved ejection fraction -Continued improvement in heart rate with IV diuresis. Might be able to transition to oral furosemide tomorrow if continues to respond -Considering cardiology consult if heart rate has not stabilized with in mind option for dofetilide or amiodarone in the setting of known pulmonary disease (2) Heart failure with preserved ejection fraction (HFpEF, >= 50%): Assessment and plan: On 06/19/2024 was LVEF 65% with an hypocontractile right ventricle that was mildly enlarged; RVSP was 52 mmHg. Presented w acute worsening of right-sided CHF with tachycardia VS atrial fibrillation and still responding well to IV Lasix. BNP at 3142 on 07/28/2024 and was 3751 on 05/29/2024. Continue furosemide 40 mg IV push twice daily BMP in the morning (3) Emphysema lung: Assessment and plan: The patient is seen by outpatient pulmonology service -will continue on discharge Continue home medications (4) Hypercapnic respiratory failure: Assessment and plan: As above She also followed for scarring in right upper lobe and nodularity within the scarring which is stable; had refused workup in the past. (5) Pulmonary hypertension: Assessment and plan: As previously stated, patient has past medical history of abnormal CT for which she refused the further workup. RVSP as per echo was 52 mmHg in May 2024. Will continue outpatient management (6) Chronic obstructive lung disease: Status: Chronic Assessment and plan: This time, no criteria met for acute COPD exacerbation. Continue O2 supplementation and titrate PRN, now at baseline oxygen requirement Ongoing home chronic inhaler therapy Scheduled nebulizers: Continue levalbuterol and ipratropium (7) Anemia: Assessment and plan: Stable H&H, continue to follow -no evidence of active blood loss. (8) GERD (gastroesophageal reflux disease): Assessment and plan: Continue with omeprazole (9) History of GI diverticular bleed: Assessment and plan: Avoid anticoagulation patient had significant bleeding in the past. Heparin for DVT prophylaxis discontinued now SCDs for DVT prophylaxis; patient is on teds from home, Discussed with Dr. Gonzáles Subjective Subjective Patient reports: no new complaints, tolerating liquids well, tolerating a regular diet and afebrile; denies shortness of breath Exam Const General: cooperative, comfortable and no acute distress Nutritional Appearance: average body habitus Orientation: alert, awake and oriented x3 HENMT Head: normal to inspection Ears: external ears normal General nose exam: external nose normal Face and sinus: dry mucous membranes Mouth: moist mucous membranes Eyes General: appearance normal, both eyes and all related structures Neck Neck: normal visual inspection Resp Effort & Inspection: normal respiratory effort Auscultation: diminished lung sounds Cardio Jugular venous pressure: no JVD Rate: regular rate Skin General skin exam: no rashes or lesions noted Neuro General: patient alert and patient oriented x3 Extrem General: normal to inspection Psych Mental Status: mental status grossly normal Objective Last Vital Signs Temp 36.7 C 08/03/24 15:15 Pulse 86 08/03/24 15:15 Resp 17 08/03/24 15:15 BP 123/59 L 08/03/24 15:15 Pulse Ox 96 08/03/24 15:15 Time Spent with Patient Time Spent with Patient: 35-49 minutes Time was spent: preparing to see the patient(eg.review tests), obtaining and/or reviewing separately otained hiistory, ordering medications,tests, procedures, indepentently interpreting results and counseling the patient
== END 2024-08-03 17:19 | disposition home health service (06) | DRG 291 ==
LOC: ER 15:37 → MS 17:22
PROVIDERS: Nurse Practitioner Acute Care; Admitting Provider Family Medicine; Emergency Provider Nurse Practitioner Family; PCP Nurse Practitioner Family; Visit Provider Family Medicine
DX: I11.0 Hypertensive heart disease with heart failure (principal); I50.33 Acute on chronic diastolic (congestive) heart failure; J96.12 Chronic respiratory failure with hypercapnia; J96.11 Chronic respiratory failure with hypoxia; M47.12 Other spondylosis with myelopathy, cervical region; I27.20 Pulmonary hypertension, unspecified; I48.0 Paroxysmal atrial fibrillation; D50.0 Iron deficiency anemia secondary to blood loss (chronic); J43.8 Other emphysema; K21.9 Gastro-esophageal reflux disease without esophagitis; Z86.73 Personal history of transient ischemic attack (TIA), and cerebral infarction without residual deficits; Z79.899 Other long term (current) drug therapy; M81.0 Age-related osteoporosis without current pathological fracture; Z87.891 Personal history of nicotine dependence; D64.9 Anemia, unspecified; R91.8 Other nonspecific abnormal finding of lung field; Z66 Do not resuscitate; Z99.81 Dependence on supplemental oxygen; K31.7 Polyp of stomach and duodenum; K57.30 Diverticulosis of large intestine without perforation or abscess without bleeding
CPT/HCPCS: 00123; 36415; 71275; 80048; 80053; 82805; 85027; 87635; 93005; 94640; 94761; 96374; 99285; 80162; 83735; 83880; 84443; 84484; 85025; 85610; 85730; 93010; 94664; 94760; 99223; 99232; 99233; 99239; J1644; J1940; J3475; J3490; J7614; J7620; J7644

== ENCOUNTER 2024-08-08 10:48 | Observation (INO) | payer OTHER, SELFPAY ==
[2024-08-08] VITALS (26 sets, daily range): BP systolic 113–141; BP diastolic 40–60; PULSE 60–102; RESP 2–31; TEMP 36.3–36.8; O2SAT 75–97
--- NOTE | 2024-08-08 10:30 | RT.EKG_ITS ---
APPROVED REPORT Exam: Resting ECG Reason for Exam: chest pain Patient Location: E HR:92 bpm ECG Measurements Heart Rate [address] 199 P 71 QRSd 82 QRS 84 QT 347 T -42 QTc 411 Conclusion Sinus rhythm...normal P axis, V-rate 60- 99 Multiform ventricular premature complexes...short R-R, variable morphology Nonspecific T abnormalities, inferior leads...T <-0.10mV, II III aVF Narrow complex normal sinus rhythm at a rate of 92. CT and QTc within normal limits. Borderline rig ht axis. No left lateral chest wall ST segments appear slightly more pronounced compared to prior. No significant ST segment elevations. Significant artifact will repeat ECG.
--- NOTE | 2024-08-08 10:45 | DI.RAD_ITS ---
Exam(s) XR PORTABLE CHEST AP EXAM: XR PORTABLE CHEST AP CLINICAL HISTORY: Shortness of breath TECHNIQUE: 2D digital imaging was performed of the chest. One image was obtained. An AP view was ob tained. COMPARISON: CR XR PORTABLE CHEST AP from 06/24/2024 FINDINGS: MEDIASTINUM: Normal. HEART: Normal. PULMONARY VASCULATURE: Normal. LUNGS: No focal consolidation. There are stable chronic changes in the lungs. PLEURAL SPACE: No pleural effusion or pneumothorax. BONE:Within normal limits for the patient's age. OTHER FINDINGS:Normal. IMPRESSION: No acute pulmonary findings. DATA REPOSITORY: RADIATION DOSE DELIVERED:
--- NOTE | 2024-08-08 11:08 | ED.GENADUL_ITS ---
Discharge Plan Disposition Patient Disposition: Admit to [facility] Discharge Details Clinical Impression: Acute respiratory failure with hypoxia and hypercapnia, Elevated LFTs, Cholelithiasis, Abdominal right upper quadrant tenderness Admit Date/Time: 08/08/24 15:05 Admit Provider: Vinh Rojo Attending Provider: Vinh Rojo Primary Care Provider: Deven Collier ED Provider: Otilio Romo General Date/Time Provider Initiated Documentation: 08/08/24 10:53 . HPI Narrative: MDM This is an elderly normothermic and not tachycardic 73-year-old female with chest pain concerning for the possibility of ACS for which she received 324 mg of aspirin and will obtain serial troponins. Patient not altered so my suspicion for CVA is low so I do not feel that she requires a CT scanning of her head. No tearing quality to chest pain to suggest aortic dissection. No fevers nor significant cough so my suspicion for pneumonia is low however will obtain a chest x-ray. No pain out of proportion to suggest necrotizing soft tissue infection. Not a dialysis patient and no signs of pericardial effusion on bedside ultrasound so my suspicion is low for tamponade. Equal breath sounds and no trauma so doubt pneumothorax. No history of recent emesis to suggest increased risk for esophageal rupture. No rash to chest to suggest zoster. Patient is not significantly wheezy not hypoxic so my suspicion for acute exacerbation of COPD is low. No significant lower extremity edema nor B-lines to suggest acute heart failure. I considered PE however the patient is not tachycardic nor hypotensive so I did not feel that she required a CT angiogram. She does have a lung mass so we will obtain chest x-ray to ensure that this is not involved leading to chest pain. 11:35 AM Venous blood gas with mild acidemia and worsened hypercarbia with a pCO2 of 70 mmHg. Will reassess patient to discuss possible trial of rescue BiPAP. 11:45 AM I met with patient's son and grandson. They reported that the patient began feeling anxious when the power went out this morning and she was concerned that she was not able to get her oxygen and she started breathing rapidly. Her decreased level of consciousness certainly could have been secondary to increased CO2 retention. Will call respiratory for rescue BiPAP. Patient continues to be alert and oriented. CBC with persistent thrombocytosis. No anemia. No leukocytosis. 12 PM Comprehensive metabolic panel showing no LEIA. Markedly elevated LFTs new compared to prior. Given nausea with chest pain will obtain CT abdomen pelvis given no availability of RUQ ultrasound on weekend. Reassuring normal lipase. Reassuring normal magnesium. Reassuring initial troponin. proBNP improved compared to prior. Therapeutic digoxin level. 12:30 PM Patient resting comfortably on CPAP with 1 L oxygen thanks to RT. Will order repeat blood gas for a 1:30 PM. 12:45 PM Reassuring urinalysis nitrite negative?test not consistent with UTI. It is certainly possible that the patient has a component of anxiety as reported by her son so we will trial a dose of hydroxyzine in the emergency department. Repeat venous blood gas showing improved hypercarbia and resolved acidosis. 1:[address] scan showing: IMPRESSION: 1. Asymmetric gallbladder wall thickening in the fundus of the gallbladder measures 5.4 mm (series 8, image 32. ) . Recommend gallbladder ultrasound if clinically indicated.. 2. Mildly dilated loops of jejunum with air-fluid levels. The jejunum tapers more distally. This may represent ileus or developing obstruction 3. 2.2 cm cyst in the right adnexal region may represent right ovarian cyst.. I completed a bedside right upper quadrant ultrasound which showed cholelithiasis and sonographic Lucas's with gallbladder wall thickening but no pericholecystic fluid. Will reach out to Dr. Rojo from general surgery. Reassuring 1 hour troponin with no delta. Will cancel third troponin. Repeat venous blood gas off BiPAP showing slightly worse hypercarbia and acidemia. 1:56 PM I spoke with Dr. Rojo regarding the patient's case. He will place hospitalization orders. I updated the patient and her family. Patient's pain continues to be well-controlled on 4 mg of morphine. Chronic conditions affecting the care of the patient: COPD History obtained from an outside historian: Paramedics External record review: [facility] [place] Diagnostic interpretations performed by me: Per my independent interpretation chest x-ray shows: Per my independent interpretation EKG shows: Narrow complex normal sinus rhythm at a rate of 92. IL and QTc within normal limits. Borderline right axis. No left lateral chest wall ST segments appear slightly more pronounced compared to prior. No significant ST segment elevations. Significant artifact will repeat ECG. 11:30 AM Repeat ECG showing narrow complex normal sinus rhythm rate of 92. Intervals within normal limits. Right axis deviation. Slightly improved ST segment depressions V4 through V6. No ST segment elevations. No acute injury pattern. 12:55 PM Patient had recurrent chest pain for which repeat ECG was obtained. Narrow complex normal rhythm at a rate of 89. There is significant artifact. Rhythm interpretation is difficult. There are no acute ST segment abnormalities. ]Medications: Aspirin Social determinants of health affecting disposition: N/A Management discussed with: General Surgery Treatment/interventions considered: N/A Response to therapies provided: Improved symptoms with morphine HPI This is a DNI DNR 73-year-old female with a history of advanced COPD and chronic hypoxic respiratory failure on 2 L home oxygen arrived to the emergency department via EMS in setting of chest pain. Patient reportedly has been increasingly tired and decreasing weight responsive this morning according to her son. She had an episode of difficulty breathing this morning and used her inhaler. This improves her shortness of breath but resulted in central chest pain that she describes as pressure. It occasionally radiates down her left arm. It has now resolved. She has not taken any falls recently. She has not been vomiting. No rash to her chest. She was nauseous when her chest pain occurred. No prior history of MIs nor stents. She denies any unintentional weight gain. She denies any increased phlegm production and any increased purulence to her phlegm. Exam General: Elderly-appearing in no acute distress speaking in complete sentences. Head: Normocephalic, atraumatic. Eye: Extraocular eye movements intact. No conjunctival injection. No scleral icterus. Ear, nose, mouth, throat: Grossly normal inspection. Normal voice, handling secretions normally. Neck: Trachea midline. Cardiovascular: Well-perfused distal extremities. Regular rate and rhythm. Respiratory: Nonlabored respiration. Decreased breath sounds bilateral bases. No significant wheezes. No significant prolonged expiratory phase. Gastrointestinal: Nondistended abdomen. Soft. Minimal right upper quadrant tenderness. Back: With patient's nurse Annabel I assessed patient's back. She had signs of a healed sacral decubitus ulcer. Musculoskeletal: No significant lower extremity pitting edema. Moving all 4 extremities spontaneously. Skin: Normal for age and race, grossly normal temperature and turgor. No acute rash. Neurologic: Alert and appropriate, no apparent acute deficits. GCS 15. Psychiatric: Mood and manner are appropriate. Grooming and personal hygiene are appropriate. Related Data Home Medications ?Medication ?Instructions ?Recorded ?Confirmed acetaminophen 500 mg tablet 1,000 mg PO PRN PRN 10/23/19 08/08/24 amlodipine 10 mg tablet 10 mg PO BID #180 tabs 06/08/24 08/08/24 digoxin 125 mcg (0.125 mg) tablet 125 mcg PO QAM #90 tabs 06/08/24 08/08/24 esomeprazole magnesium 40 mg 40 mg PO DAILY #90 caps 06/08/24 08/08/24 capsule,delayed release fluticasone 250 mcg-salmeterol 50 1 inh inhalation BID #3 ea 06/08/24 08/08/24 mcg/dose blistr powdr for inhalation (Advair Diskus) furosemide 20 mg tablet See Rx Instructions .Route 06/08/24 08/08/24 .COMPLEX #135 tabs montelukast 10 mg tablet 10 mg PO DAILY #90 tab-caps 06/08/24 08/08/24 guaifenesin 600 mg tablet, 600 mg PO Q12H PRN #10 tabs 06/22/24 08/08/24 extended release 12 hr (Mucinex) albuterol sulfate 90 mcg/actuation 2 puff inhalation Q6H PRN 07/22/24 08/08/24 aerosol inhaler shortness of breath or wheezing #8.5 grams docusate sodium 100 mg capsule 100 mg PO DAILY #90 caps 07/22/24 08/08/24 (Colace) ipratropium 0.5 mg-albuterol 3 mg 3 ml inhalation QID #180 mL 07/23/24 08/08/24 (2.5 mg base)/3 mL nebulization soln levalbuterol HCl 1.25 mg/3 mL 1.25 mg (3 mL) inhalation Q4H PRN 07/28/24 08/08/24 solution for nebulization shortness of breath or wheezing #90 mL ferrous sulfate 325 mg (65 mg 325 mg PO DAILY 08/08/24 08/08/24 iron) tablet,delayed release Previous Rx's ?Medication ?Instructions ?Recorded amlodipine 10 mg tablet 10 mg PO BID #180 tabs 06/08/24 digoxin 125 mcg (0.125 mg) tablet 125 mcg PO QAM #90 tabs 06/08/24 esomeprazole magnesium 40 mg 40 mg PO DAILY #90 caps 06/08/24 capsule,delayed release fluticasone 250 mcg-salmeterol 50 1 inh inhalation BID #3 ea 06/08/24 mcg/dose blistr powdr for inhalation (Advair Diskus) furosemide 20 mg tablet See Rx Instructions .Route 06/08/24 .COMPLEX #135 tabs montelukast 10 mg tablet 10 mg PO DAILY #90 tab-caps 06/08/24 guaifenesin 600 mg tablet, 600 mg PO Q12H PRN #10 tabs 06/22/24 extended release 12 hr (Mucinex) albuterol sulfate 90 mcg/actuation 2 puff inhalation Q6H PRN 07/22/24 aerosol inhaler shortness of breath or wheezing #8.5 grams docusate sodium 100 mg capsule 100 mg PO DAILY #90 caps 07/22/24 (Colace) ipratropium 0.5 mg-albuterol 3 mg 3 ml inhalation QID #180 mL 07/23/24 (2.5 mg base)/3 mL nebulization soln levalbuterol HCl 1.25 mg/3 mL 1.25 mg (3 mL) inhalation Q4H PRN 07/28/24 solution for nebulization shortness of breath or wheezing #90 mL Allergies Allergy/AdvReac Type Severity Reaction Status Date / Time lorazepam (From Ativan) Allergy Severe Anaphylaxis Verified 08/08/24 10:53 diltiazem Allergy Intermediate LE and Verified 08/08/24 10:53 Facial Edema hydrochlorothiazide Allergy Mild rash Verified 08/08/24 10:53 Sulfa (Sulfonamide Allergy Unknown Other (See Verified 08/08/24 10:53 Antibiotics) Comment) umeclidinium (From Incruse AdvReac Severe Anaphylaxis Verified 08/08/24 10:53 Ellipta) metoprolol AdvReac Intermediate Fluid Verified 08/08/24 10:53 Retention lisinopril AdvReac Mild did not Verified 08/08/24 10:53 feel well General Stated Complaint: Chest Pain KAYCE: 2 Course Vital Signs Vital signs: Vital Signs Temperature 36.5 C 08/08/24 10:48 Pulse 88 08/08/24 10:48 Respiratory Rate 29 H 08/08/24 10:48 Blood Pressure 141/55 H 08/08/24 10:48 Pulse Oximetry 94 08/08/24 10:48 Temperature 36.5 C 08/08/24 10:48 Pulse 88 08/08/24 10:48 Respiratory Rate 29 H 08/08/24 10:56 Respiratory Effort Short of Breath, Labored 08/08/24 10:56 Respiratory Depth Normal 08/08/24 10:56 Respiratory Pattern Normal 08/08/24 10:56 Blood Pressure 141/55 H 08/08/24 10:48 Pulse Oximetry 94 08/08/24 10:48 Oxygen Delivery Method Nasal Cannula 08/08/24 10:48 Oxygen Flow Rate 2 08/08/24 10:48 Medical Decision Making Quality:SDOH Health Related Social Needs: Health related social needs housing instability, house d, with risk of homelessness(Z59.811) Health related social needs details lives with son ASHLEE All Active Problems (Updated 08/08/24 @ 13:58 by Otilio Romo MD) Abdominal right upper quadrant tenderness (Acute) Cholelithiasis (Acute) Elevated LFTs (Acute) Acute respiratory failure with hypoxia and hypercapnia (Acute) Chronic respiratory failure (Acute) Goals of care, counseling/discussion (Acute) Right ventricular failure (Acute) Pulmonary infiltrates (Acute) Chronic hypoxic respiratory failure (Acute) Sacral decubitus ulcer (Acute) Uvular swelling (Acute) Chronic obstructive lung disease (Chronic) h/o tobacco use, quit 2008 CAP (community acquired pneumonia) (Acute) COPD exacerbation (Acute) Cervical arthritis with myelopathy (Acute) Arthritis (Acute 02/10/13) Osteoporosis (Acute 01/14/08) Tachycardia (Chronic) Medical History (Updated 08/08/24 @ 13:58 by Otilio Romo MD) PAF (paroxysmal atrial fibrillation) History of GI diverticular bleed Emphysema lung Hypercapnic respiratory failure Pulmonary hypertension Anemia Heart failure with preserved ejection fraction (HFpEF, >= 50%) GERD (gastroesophageal reflux disease) GI bleed Hypomagnesemia Bilateral lower extremity edema Acute respiratory failure with hypoxia HTN (hypertension) COVID-[address] Tobacco dependence due to cigarettes Quit smoking when she was 59 years old COVID-19 -associated with COPD exacerbation Parotid mass Resolved after 3 months without intervention Acute on chronic respiratory failure with hypoxia and hypercapnia Acute on chronic diastolic CHF (congestive heart failure) CAP (community acquired pneumonia) GERD (gastroesophageal reflux disease) HTN (hypertension) Surgical History Endoscopic Carpal Tunnel release (03/31/13) Left 7.2.13 Family History Mother Essential hypertension Hyperlipidemia Adopted Dementia Father Heart disease Neoplasm LUNG Lung cancer Sister No problems noted. Sister No problems noted. Brother No problems noted. Brother No problems noted. Maternal Grandfather Stroke Paternal Grandfather Heart disease Maternal Grandmother Heart disease Paternal Grandmother Stroke Son Diabetes Essential hypertension Daughter No problems noted. Social History Smoking/Tobacco Use Status: Former Tobacco Use tobacco type: cigarettes Quit Date: 09/30/13 Tobacco: How many years used: 56 Quit status: quit date established Second Hand Exposure: Yes Smoking risk assessment performed?: Yes Alcohol Intake: never Drug use: Never Substance use type: does not use Counseling given: No Counseling provided: none Caregiver/Support person: No Household members: family Housing: house Communication Needs: None Do you need help understanding health information?: Never Pets and animals: Yes Pets and animals: dog(s) Sexually active: No Do you think of yourself as: straight/heterosexual Current gender identity: female What is your relationship status?: How often do you talk on the phone with friends or family?: three or more times per week How often do you get together with friends or relatives?: three or more times per week Do you belong to any clubs or organized social groups?: no Panel score (0-1 are the most socially isolated patients): 1 What type of physical activity do you participate in: none Special juan needs: No Seatbelt use: sometimes Helmet use: No Drive intox or ride w/intox 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: No Do you feel safe at home: Yes Do you feel safe in your relationship?: Yes Additional Social history: Lives with Son on [address] Female Reproductive History Menstrual Menopause type: natural POCUS Exam (ED) Limited Cardiac Exam DATE OF EXAM: 08/08/24 TIME OF EXAM: 11:21 PROVIDER THAT PERFORMED THE STUDY: Otilio Romo IS THIS A REPEAT EXAM DURING THIS ENCOUNTER: no REASON FOR EXAM: Chest pain VISUALIZED STRUCTURES: Four Chambers, Left ventricle, LVOT and Other structure: Lungs VIEW OBTAINED: Apical 4-Chamber, Parasternal long-axis and Subxiphoid PERTINENT FINDINGS/IMPRESSION: No pericardial effusion and No RV dilation DIFFERENTIAL DIAGNOSES: Aortic outflow track less than 4 cm, good squeeze, RV less than LV, no significant pericardial effusion. No significant B-lines. Exam complete Limited Gallbladder Exam DATE OF EXAM: 08/08/24 TIME OF EXAM: 13:46 PROVIDER THAT PERFORMED THE STUDY: Otilio Romo REASON FOR VISIT: Nausea/vomiting VISUALIZED STRUCTURES: Common bile duct, Gallbladder and Gallbladder wall PERTINENT FINDINGS/IMPRESSION: Cholelithiasis and Thickened gallbladder wall INCIDENTAL FINDINGS: Sonographic Lucas's, cholelithiasis gallbladder wall thickening. No pericholecystic fluid Exam complete
[2024-08-08] MEDS: Aspirin 81 MG CHEW (11:09)
--- NOTE | 2024-08-08 11:15 | RT.EKG_ITS ---
APPROVED REPORT Exam: Resting ECG Reason for Exam: Chest pain Patient Location: E HR:92 bpm ECG Measurements Heart Rate 92 AXIS DC 182 P 71 QRSd 81 QRS 91 QT 371 T -58 QTc 437 Conclusion Sinus rhythm...normal P axis, V-rate 60- 99 Right axis deviation...QRS axis ( 91,269) Anteroseptal infarct, old...Q >40mS, V1-V2 Repeat ECG showing narrow complex normal sinus rhythm rate of 92. Intervals within normal limits. R ight axis deviation. Slightly improved ST segment depressions V4 through V6. No ST segment elevatio ns. No acute injury pattern.
[2024-08-08 11:31] LABS: BE (Venous) 7 mmol/L (-2-3); HCO3 (Venous) 34 mmol/L (23-28); O2 Sat (Venous) 83 %; TCO2 (Venous) 32 mmol/L (24-29); pH (Venous) 7.29 (7.31-7.41); pO2 (Venous) 52 mmHg
[2024-08-08 11:33] LABS: Abs Immature Grans 0.05 10^3/uL (0.0-0.06); Absolute Basophil Count 0.07 10^3/uL (0.0-0.2); Absolute Eosinophil Count 0.14 10^3/uL (0.0-0.7); Absolute Lymphocyte Count 0.54 10^3/uL (1.2-3.4); Absolute Monocyte Count 1.17 10^3/uL (0.1-0.8); Basophils % 0.7 %; Eosinophils % 1.4 %; HCT 37.5 % (36.0-46.0); HGB 11.2 g/dL (11.2-15.7); Immature Grans % 0.5 %; Lymphocytes % 5.3 %; MCH 27.4 pg (27.0-33.0); MCHC 29.9 % (32.0-36.0); MCV 92 fL (80-95); MPV 9.3 fL (8.0-11.0); Monocytes % 11.4 %; Neutrophils % 80.7 %; Platelet Count 590 10^3/uL (130-400); RBC 4.09 10^6/uL (3.93-5.22); RDW 16.7 % (11.7-14.6); RDW-SD 56.6 fL; WBC 10.27 10^3/uL (4.4-10.8); pCO2 (Venous) 70 mmHg (41-51)
[2024-08-08 11:56] LABS: ALT 139 U/L (14-59); AST 382 U/L (15-37); Albumin 3.4 g/dL (3.4-5.0); Alkaline Phosphatase 234 U/L (46-116); Anion Gap 5.5 mmol/L (3-11); BUN 18 mg/dL (7-18); Bilirubin, Total 0.42 mg/dL (0.2-1.0); CO2 34.5 mmol/L (21.0-32.0); Calcium 9.2 mg/dL (8.5-10.1); Chloride 103 mmol/L (98-107); Estimated GFR 59.12 (mL/min/1.73m2); Glucose 143 mg/dL (74-106); Lipase 39 U/L (16-77); Magnesium 2.1 mg/dL (1.8-2.4); NT-proBNP 1413 pg/mL (<300); Sodium 143 mmol/L (136-145); Total Protein 7.8 g/dL (6.4-8.2); Troponin I 10 ng/L (<or=51)
--- NOTE | 2024-08-08 11:56 | DI.VRAD_ITS ---
PROCEDURE INFORMATION: Exam: XR Chest Exam date and time: 08/08/2024 11:40 AM Age: 73 years old Clinical indication: Shortness of breath TECHNIQUE: Imaging protocol: Radiologic exam of the chest. Views: 1 view. COMPARISON: CT CHEST PE CTA 07/28/2024 3:13 PM FINDINGS: Lungs: Chronic lung changes in the right apex. No consolidation. Pleural spaces: Unremarkable. No pleural effusion. No pneumothorax. Heart/Mediastinum: Unremarkable. No cardiomegaly. Bones/joints: Unremarkable. IMPRESSION: No acute findings. Dictated and Authenticated by: Donovan Watt MD. Ordering:AARON Yañez MD
[2024-08-08 11:57] LABS: Digoxin 1.28 ng/mL (0.90-2.00)
--- NOTE | 2024-08-08 12:00 | DI.CT_ITS ---
Exam(s) CT ABDOMEN PELVIS W EXAM: CT ABDOMEN PELVIS W CLINICAL HISTORY: Elevated LFTs TECHNIQUE: Imaging Protocol: Axial computed tomography images with coronal and sagittal reformatted images were created and reviewed. CONTRAST MATERIAL: Intravenous: Omnipaque 350 Contrast volume:80 mL Oral: No COMPARISON: CT CT ABDOMEN PELVIS WO from 12/31/[address] CHEST PE CTA from 06/24/[address] THORAX ABDOMEN CTA from 07/05/2024 FINDINGS: ABDOMEN: Lung Bases: Mild centrilobular emphysematous changes are present. No focal consolidating infiltrates are seen in the lung bases. Liver: There is slight decreased attenuation of the liver suggesting fatty infiltration. No measurab le mass. There is a tiny hypodensity in the left lobe of the liver. It is too small for further latisha acterization. Portal, Superior Mesenteric, and Splenic Veins: Unremarkable. Gallbladder and Biliary Tract: There does appear to be mild asymmetric thickening of the wall of the gallbladder fundus. No significant biliary ductal dilatation is present. Pancreas: Normal density, no abnormal calcifications or inflammatory process. Spleen: Normal. Adrenals: There is stable mild nodularity of the left adrenal gland. This likely reflects an adrenal adenoma. No follow-up is recommended. The right adrenal gland is unremarkable. Kidneys: Normal size, contour and axis. No radiodense stones or obstructive uropathy. There are tiny hypodensities in the kidneys. They are too small for further characterization but likely reflect sma ll cysts. Abdominal Aorta: Abdominal portion non-dilated. Atherosclerotic calcification is present. Bowel: There is diverticulosis of the colon. No evidence of acute diverticulitis is present. There is no evidence of bowel obstruction or bowel wall thickening. Appendix is unremarkable. Probable ile us. Peritoneal Cavity: No ascites, collection or mesenteric inflammatory response. No free air. Lymph Nodes: Within normal limits. Bones: Within normal limits for the patient's age. There is a left convex lumbar scoliosis. Soft Tissues: Unremarkable. PELVIS: Bladder: Symmetric distention, no gross wall thickening. Reproductive Organs: 1.7 cm right ovarian cyst. Lymph Nodes: Within normal limits. Bones: Within normal limits for the patient's age. IMPRESSION: 1. Asymmetric thickening of the wall of the gallbladder fundus. Further evaluation with gallbladder ultrasound and or MRI of the abdomen is recommended to exclude gallbladder mass. No cholelithiasis o r biliary ductal dilatation. 2. Possible ileus in the small bowel. 3. No evidence of bowel obstruction. RADIATION DOSE DELIVERED: 440.99mGy.cm Total DLP DATA REPOSITORY: All CT scans at this facility are submitted to the National Radiology Data Registry (NRDR) Dose Index Registry (DIR) with the [employer] (A[employer]). RADIATION OPTIMIZATION: All CT scans at this facility use at least one of these dose optimization te chniques: automated exposure control; mA and/or kV adjustment per patient size (includes targeted exa ms where dose is matched to clinical indication); or iterative reconstruction.
[2024-08-08] MEDS: hydrOXYzine HCL 25 MG TAB PO (12:04)
--- NOTE | 2024-08-08 12:30 | RT.EKG_ITS ---
APPROVED REPORT Exam: Resting ECG Reason for Exam: increased chest pain Patient Location: E HR:89 bpm ECG Measurements Heart Rate 89 AXIS CA [id number] P [id number] QRSd 80 QRS 109 QT 384 T [id number] QTc 469 Conclusion Atrial fibrillation...V-rate 73-126, irreg A-activity Anteroseptal infarct, age indeterminate...Q >35mS, T neg, V1-V2 Abnormal T, consider ischemia, inferior leads...T <-0.20mV, II III aVF Narrow complex normal rhythm at a rate of 89. There is significant artifact. Rhythm interpretation is difficult. There are no acute ST segment abnormalities.
[2024-08-08 12:41] LABS: BE (Venous) 9 mmol/L (-2-3); HCO3 (Venous) 35 mmol/L (23-28); O2 Sat (Venous) 87 %; TCO2 (Venous) 33 mmol/L (24-29); pH (Venous) 7.34 (7.31-7.41); pO2 (Venous) 54 mmHg
[2024-08-08 12:44] LABS: Bilirubin Negative (Negative); Blood Negative (Negative); Clarity Clear (Clear); Glucose Negative (Negative); Ketones Negative (Negative); Leukocyte Esterase Negative (Negative); Nitrite Negative (Negative); Specific Gravity 1.015 (1.005-1.025); Urobilinogen 0.2 mg/dL (Up to 0.2); pH 5.5 (5-8)
[2024-08-08 12:44] LABS: pCO2 (Venous) 64 mmHg (41-51)
[2024-08-08 12:52] LABS: Troponin I 10 ng/L (<or=51)
[2024-08-08] MEDS: Normal Saline - Diluent 50 ML VIAL IJ (13:00)
[2024-08-08] MEDS: Omnipaque 350 MG/ML 100 ML BTL 80 ML IJ (13:01)
[2024-08-08] MEDS: MORPHine 4 MG/ML SYR IVP (13:02)
--- NOTE | 2024-08-08 13:28 | DI.VRAD_ITS ---
PROCEDURE INFORMATION: Exam: CT Abdomen And Pelvis With Contrast Exam date and time: 08/08/2024 1:05 PM Age: 73 years old Clinical indication: Other: Elevated efts TECHNIQUE: Imaging protocol: Computed tomography of the abdomen and pelvis with contrast. Contrast material: OMNIPAQUE 350; Contrast volume: 80 ml; Contrast route: INTRAVENOUS (IV); COMPARISON: CT THORAX ABDOMEN CTA 07/05/2024 10:19 AM FINDINGS: Liver: Normal. No mass. Gallbladder and biliary ducts: Asymmetric gallbladder wall thickening in the fundus of the gallbladder measures 5.4 mm (series 8, image 32. ) . Recommend gallbladder ultrasound if clinically indicated.. The common duct is prominent. It measures 11 millimeters. This may be due to elderly status. However, if biliary obstruction is suspected clinically, recommend further evaluation Pancreas: Normal. No ductal dilation. Spleen: Normal. No splenomegaly. Adrenal glands: Normal. No mass. Kidneys and ureters: Subcentimeter low attenuation area in the right kidney is too small for characterization. Stomach and bowel: Mildly dilated loops of jejunum with air-fluid levels. The jejunum tapers more distally. This may represent ileus or developing obstruction. Diverticulosis of the rectosigmoid. No diverticulitis Appendix: No evidence of appendicitis. Intraperitoneal space: Unremarkable. No free air. No significant fluid collection. Vasculature: Unremarkable. No abdominal aortic aneurysm. Lymph nodes: Unremarkable. No enlarged lymph nodes. Urinary bladder: Unremarkable as visualized. Reproductive: 2.2 cm cyst in the right adnexal region may represent right ovarian cyst.. Bones/joints: Unremarkable. No acute fracture. Soft tissues: Unremarkable. IMPRESSION: 1. Asymmetric gallbladder wall thickening in the fundus of the gallbladder measures 5.4 mm (series 8, image 32. ) . Recommend gallbladder ultrasound if clinically indicated.. 2. Mildly dilated loops of jejunum with air-fluid levels. The jejunum tapers more distally. This may represent ileus or developing obstruction 3 2.2 cm cyst in the right adnexal region may represent right ovarian cyst.. Dictated and Authenticated by: Donovan Watt MD. Ordering:AARON Yañez MD
[2024-08-08 13:41] LABS: BE (Venous) 7 mmol/L (-2-3); HCO3 (Venous) 34 mmol/L (23-28); O2 Sat (Venous) 85 %; TCO2 (Venous) 32 mmol/L (24-29); pH (Venous) 7.28 (7.31-7.41); pO2 (Venous) 54 mmHg
[2024-08-08 13:43] LABS: pCO2 (Venous) 71 mmHg (41-51)
--- NOTE | 2024-08-08 15:09 | W.PM.HP.N ---
Date of service: 08/08/24 Time of Service: 15:23 Assessment and Plan Assessment and plan (1) Abdominal right upper quadrant tenderness: Status: Acute Assessment and plan: There is certainly a little bit of irregularity about the gallbladder wall, but radiographically, and ultrasonographically, features do not appear consistent with acute cholecystitis. Furthermore, she is not really tender at this point. I suppose biliary colic would be consistent with some of the symptoms, although the bilateral nature of the symptoms is a bit atypical as well. The elevated alk phos would support this, but it is interesting that she has a bit of a transaminitis with a normal bilirubin. In that regards, cholestatic picture secondary to her right-sided heart failure may be causing those abnormal labs. Given her GI history, some element of constipation and diverticulitis may be coming into play here as well. Without an indication to move to the operating room urgently, I think reassessing over the next 24 hours or so is probably the safest plan. I will repeat her labs tomorrow morning, and we can see how she tolerates some clear liquids. At this point, hold off on any antibiotics as she seems to be afebrile with a normal white blood cell count, and I have a very low suspicion of actual acute cholecystitis. History of Present Illness History of Present Illness Chief Complaint: Upper abdominal pain Narrative: Jackie is 73 years old. She came to the hospital today with worsening abdominal pain. She reports multiple episodes of this over the past 2 weeks or so. She tells me that they come on fairly quickly, and feel like stabbing pains in the lower part of her lungs. It happened today, sometime late in the morning. She tells me that she was eating some type of chicken and biscuit cracker, but otherwise going about her daily routine. The pain had a sudden onset, and felt like it radiated slightly from the upper abdomen into the chest. She thought she was having a heart attack. Her son drove her approximately 40 minutes to the emergency department. While en route, the pain spontaneously stopped. Since then, she has been feeling fine. In the emergency department, she was found to have slightly elevated liver function tests with a normal bilirubin and a high alk phos. She underwent a CT scan of the abdomen and pelvis today that showed some asymmetry of the gallbladder wall. This was followed up with a [id number] ultrasound that suggested cholelithiasis, and perhaps some areas of gallbladder wall thickening. There is no pericholecystic fluid. Her past medical history significant for severe COPD. She wears 2 L of nasal cannula at all times, and sleeps with 2 L and the assistance of a BiPAP machine. She also has right-sided heart failure, with her most recent echo demonstrating a right ventricular systolic pressure in excess of 50. She appears to be in atrial fibrillation, with a rate in the 80s to 90s. She does not use therapeutic anticoagulation. Past surgical history significant for tubal ligation. Review of Systems Constitutional Constitutional: Denies body ache(s), Denies headache(s), Reports lethargy and Reports poor appetite Eyes Eyes: Reports system reviewed and no additional complaints, except as documented ENT Ears, Nose, Mouth, and Throat: Denies headache(s) and Denies nasal congestion Cardiovascular Cardiovascular: Reports chest pain, Denies palpitations and Reports dyspnea Respiratory Respiratory: Denies chest congestion, Reports cough and Reports dyspnea Gastrointestinal Gastrointestinal: Reports constipation, Denies dyspepsia, Reports nausea and Denies vomiting Genitourinary Genitourinary: Reports system reviewed and no additional complaints, except as documented Musculoskeletal Musculoskeletal: Reports back pain Neurologic Neurologic: Denies headache(s) Endocrine Endocrine: Denies palpitations Hematologic/Lymphatic Hematologic/Lymphatic: Denies easy bleeding and Denies easy bruising PFSH All Active Problems (Updated 08/08/24 @ 13:58 by Otilio Romo MD) Abdominal right upper quadrant tenderness (Acute) Cholelithiasis (Acute) Elevated LFTs (Acute) Acute respiratory failure with hypoxia and hypercapnia (Acute) Chronic respiratory failure (Acute) Goals of care, counseling/discussion (Acute) Right ventricular failure (Acute) Pulmonary infiltrates (Acute) Chronic hypoxic respiratory failure (Acute) Sacral decubitus ulcer (Acute) Uvular swelling (Acute) Chronic obstructive lung disease (Chronic) h/o tobacco use, quit 2008 CAP (community acquired pneumonia) (Acute) COPD exacerbation (Acute) Cervical arthritis with myelopathy (Acute) Arthritis (Acute 02/10/13) Osteoporosis (Acute 01/14/08) Tachycardia (Chronic) Medical History (Updated 08/08/24 @ 13:58 by Otilio Romo MD) PAF (paroxysmal atrial fibrillation) History of GI diverticular bleed Emphysema lung Hypercapnic respiratory failure Pulmonary hypertension Anemia Heart failure with preserved ejection fraction (HFpEF, >= 50%) GERD (gastroesophageal reflux disease) GI bleed Hypomagnesemia Bilateral lower extremity edema Acute respiratory failure with hypoxia HTN (hypertension) COVID-[address] Tobacco dependence due to cigarettes Quit smoking when she was 59 years old COVID-19 -associated with COPD exacerbation Parotid mass Resolved after 3 months without intervention Acute on chronic respiratory failure with hypoxia and hypercapnia Acute on chronic diastolic CHF (congestive heart failure) CAP (community acquired pneumonia) GERD (gastroesophageal reflux disease) HTN (hypertension) Surgical History Endoscopic Carpal Tunnel release (03/31/13) Left 7.2.13 Family History Mother Essential hypertension Hyperlipidemia Adopted Dementia Father Heart disease Neoplasm LUNG Lung cancer Sister No problems noted. Sister No problems noted. Brother No problems noted. Brother No problems noted. Maternal Grandfather Stroke Paternal Grandfather Heart disease Maternal Grandmother Heart disease Paternal Grandmother Stroke Son Diabetes Essential hypertension Daughter No problems noted. Social History Smoking/Tobacco Use Status: Former Tobacco Use tobacco type: cigarettes Quit Date: 09/30/13 Tobacco: How many years used: 56 Quit status: quit date established Second Hand Exposure: Yes Smoking risk assessment performed?: Yes Alcohol Intake: never Drug use: Never Substance use type: does not use Counseling given: No Counseling provided: none Caregiver/Support person: No Household members: family Housing: house Communication Needs: None Do you need help understanding health information?: Never Pets and animals: Yes Pets and animals: dog(s) Sexually active: No Do you think of yourself as: straight/heterosexual Current gender identity: female What is your relationship status?: How often do you talk on the phone with friends or family?: three or more times per week How often do you get together with friends or relatives?: three or more times per week Do you belong to any clubs or organized social groups?: no Panel score (0-1 are the most socially isolated patients): 1 What type of physical activity do you participate in: none Special juan needs: No Seatbelt use: sometimes Helmet use: No Drive intox or ride w/intox skidder driver: No Do you feel safe at home: Yes Do you feel safe in your relationship?: Yes Additional Social history: Lives with Son on [address] Female Reproductive History Menstrual Menopause type: natural Meds Allergies and Home Medications Allergies Allergy/AdvReac Type Severity Reaction Status Date / Time lorazepam (From Ativan) Allergy Severe Anaphylaxis Verified 08/08/24 10:53 diltiazem Allergy Intermediate LE and Verified 08/08/24 10:53 Facial Edema hydrochlorothiazide Allergy Mild rash Verified 08/08/24 10:53 Sulfa (Sulfonamide Allergy Unknown Other (See Verified 08/08/24 10:53 Antibiotics) Comment) umeclidinium (From Incruse AdvReac Severe Anaphylaxis Verified 08/08/24 10:53 Ellipta) metoprolol AdvReac Intermediate Fluid Verified 08/08/24 10:53 Retention lisinopril AdvReac Mild did not Verified 08/08/24 10:53 feel well Home Medications ?Medication ?Instructions ?Recorded ?Confirmed ?Type acetaminophen 500 mg tablet 1,000 mg PO PRN PRN 10/23/19 08/08/24 History amlodipine 10 mg tablet 10 mg PO BID #180 tabs 06/08/24 08/08/24 Rx digoxin 125 mcg (0.125 mg) tablet 125 mcg PO QAM #90 tabs 06/08/24 08/08/24 Rx esomeprazole magnesium 40 mg 40 mg PO DAILY #90 caps 06/08/24 08/08/24 Rx capsule,delayed release fluticasone 250 mcg-salmeterol 50 1 inh inhalation BID #3 ea 06/08/24 08/08/24 Rx mcg/dose blistr powdr for inhalation (Advair Diskus) furosemide 20 mg tablet See Rx Instructions .Route 06/08/24 08/08/24 Rx .COMPLEX #135 tabs montelukast 10 mg tablet 10 mg PO DAILY #90 tab-caps 06/08/24 08/08/24 Rx guaifenesin 600 mg tablet, 600 mg PO Q12H PRN #10 tabs 06/22/24 08/08/24 Rx extended release 12 hr (Mucinex) albuterol sulfate 90 mcg/actuation 2 puff inhalation Q6H PRN 07/22/24 08/08/24 Rx aerosol inhaler shortness of breath or wheezing #8.5 grams docusate sodium 100 mg capsule 100 mg PO DAILY #90 caps 07/22/24 08/08/24 Rx (Colace) ipratropium 0.5 mg-albuterol 3 mg 3 ml inhalation QID #180 mL 07/23/24 08/08/24 Rx (2.5 mg base)/3 mL nebulization soln levalbuterol HCl 1.25 mg/3 mL 1.25 mg (3 mL) inhalation Q4H PRN 07/28/24 08/08/24 Rx solution for nebulization shortness of breath or wheezing #90 mL ferrous sulfate 325 mg (65 mg 325 mg PO DAILY 08/08/24 08/08/24 History iron) tablet,delayed release Exam Const General: cooperative, comfortable and no acute distress Orientation: alert, awake and oriented x3 HENMT Head: normal to inspection Eyes General: appearance normal, both eyes and all related structures Resp Effort & Inspection: audible wheezes Cardio Rate: regular rate Rhythm: abnormal rhythm (Appears to be A-fib) Heart Sounds: S1 normal and S2 normal GI Palpation: soft, no guarding and tender (Mild tenderness with deep palpation bilaterally) Percussion: normal to percussion Auscultation: normal bowel sounds Results Imaging Abdomen CT scan report/results: report reviewed and image reviewed CT scan - pelvis: report reviewed and image reviewed Labs 08/08/24 11:22 08/08/24 11:22 Labs: Laboratory Results - last 24 hr 08/08/24 08/08/24 08/08/24 11:22 11:55 12:26 WBC 10.27 RBC 4.09 Hgb 11.2 Hct 37.5 MCV 92 MCH 27.4 MCHC 29.9 L RDW 16.7 H Plt Count 590 H MPV 9.3 Immature Gran % 0.5 Neutrophils % 80.7 Lymphocytes % 5.3 Monocytes % 11.4 Eosinophils % 1.4 Basophils % 0.7 Nucleated RBC % 0.0 Absolute Neutrophils 8.30 H Absolute Lymphocytes 0.54 L Absolute Monocytes 1.17 H Absolute Eosinophils 0.14 Absolute Basophils 0.07 VBG pH 7.29 L VBG pCO2 70 H* VBG pO2 52 VBG HCO3 34 H VBG Total CO2 32 H VBG O2 Saturation 83 VBG Base Excess 7 H Sodium 143 Potassium 4.0 Chloride 103 Carbon Dioxide 34.5 H Anion Gap 5.5 BUN 18 Creatinine 1.0 Est GFR (CKD-EPI 2020) 59.12 Glucose 143 H Calcium 9.2 Magnesium 2.1 Total Bilirubin 0.42 AST 382 H ALT 139 H Alkaline Phosphatase 234 H Troponin I 10 10 NT-Pro-B Natriuret Pep 1413 H Total Protein 7.8 Albumin 3.4 Lipase 39 Urine Color Yellow Urine Clarity Clear Urine pH 5.5 Ur Specific [place] 1.015 Urine Protein Negative Urine Ketones Negative Urine Blood Negative Urine Nitrite Negative Urine Bilirubin Negative Urine Urobilinogen 0.2 Ur Leukocyte Esterase Negative Urine Glucose Negative Digoxin 1.28 08/08/24 08/08/24 08/08/24 12:38 13:35 13:53 WBC RBC Hgb Hct MCV MCH MCHC RDW Plt Count MPV Immature Gran % Neutrophils % Lymphocytes % Monocytes % Eosinophils % Basophils % Nucleated RBC % Absolute Neutrophils Absolute Lymphocytes Absolute Monocytes Absolute Eosinophils Absolute Basophils VBG pH 7.34 7.28 L VBG pCO2 64 H* 71 H* VBG pO2 54 54 VBG HCO3 35 H 34 H VBG Total CO2 33 H 32 H VBG O2 Saturation 87 85 VBG Base Excess 9 H 7 H Sodium Potassium Chloride Carbon Dioxide Anion Gap BUN Creatinine Est GFR (CKD-EPI 2020) Glucose Calcium Magnesium Total Bilirubin AST ALT Alkaline Phosphatase Troponin I Cancelled NT-Pro-B Natriuret Pep Total Protein Albumin Lipase Urine Color Urine Clarity Urine pH Ur Specific [place] Urine Protein Urine Ketones Urine Blood Urine Nitrite Urine Bilirubin Urine Urobilinogen Ur Leukocyte Esterase Urine Glucose Digoxin Last Vital Signs Temp 98.2 F 08/08/24 13:29 Pulse 94 H 08/08/24 13:29 Resp 28 H 08/08/24 13:29 BP 137/47 L 08/08/24 13:29 Pulse Ox 96 08/08/24 13:29 Time Spent Time spent with Patient: 55-74 minutes Time was spent: preparing to see the patient(eg.review tests), ordering medications,tests, procedures, referring, communicating with other health associate director career services, indepentently interpreting results, counseling the patient and care coordination
--- NOTE | 2024-08-08 16:14 | W.PC.ACHO ---
Registration Status: Primary Language: Preferred Language: ED Information & Data Chief Complaint Chest Pain 08/08/24 11:15 Triage Note BIBA chest pain, decreasing 08/08/24 10:48 LOC from baseline, 2lnc at home Medical / Surgical History (Last Updated 07/28/24 @ 17:55 by Allan Law) PAF (paroxysmal atrial fibrillation) History of GI diverticular bleed Emphysema lung Hypercapnic respiratory failure Pulmonary hypertension Anemia Heart failure with preserved ejection fraction (HFpEF, >= 50%) GERD (gastroesophageal reflux disease) GI bleed Hypomagnesemia Bilateral lower extremity edema Acute respiratory failure with hypoxia HTN (hypertension) COVID-[address] Tobacco dependence due to cigarettes COVID-19 Parotid mass Acute on chronic respiratory failure with hypoxia and hypercapnia Acute on chronic diastolic CHF (congestive heart failure) CAP (community acquired pneumonia) GERD (gastroesophageal reflux disease) HTN (hypertension) (Last Reviewed 07/28/24 @ 17:47 by Allan Law) Endoscopic Carpal Tunnel release (03/31/13) Most Recent Vital Signs Temperature 36.8 C 08/08/24 13:29 Temperature Source Tympanic 08/08/24 13:29 Pulse 94 H 08/08/24 13:29 Pulse Rhythm Regular 08/08/24 13:29 Pulse Strength Normal 08/08/24 13:29 Pulse 87 08/08/24 12:01 Respiratory Rate 28 H 08/08/24 13:29 Respiratory Effort Short of Breath 08/08/24 13:29 Respiratory Depth Normal 08/08/24 13:29 Respiratory Pattern Normal 08/08/24 13:29 Blood Pressure 137/47 L 08/08/24 13:29 Blood Pressure Mean 77 08/08/24 13:29 Pulse Oximetry 96 08/08/24 13:29 Oxygen Delivery Method Nasal Cannula 08/08/24 13:29 Oxygen Flow Rate 1 08/08/24 12:26 Pain Level 0 08/08/24 13:29 Allergies lorazepam (From Ativan) Allergy (Severe, Verified 08/08/24 10:53) Anaphylaxis diltiazem Allergy (Intermediate, Verified 08/08/24 10:53) LE and Facial Edema hydrochlorothiazide Allergy (Mild, Verified 08/08/24 10:53) rash Sulfa (Sulfonamide Antibiotics) Allergy (Unknown, Verified 08/08/24 10:53) Other (See Comment) umeclidinium (From Incruse Ellipta) Adverse Reaction (Severe, Verified 08/08/24 10:53) Anaphylaxis extreme breathlessness metoprolol Adverse Reaction (Intermediate, Verified 08/08/24 10:53) Fluid Retention lisinopril Adverse Reaction (Mild, Verified 08/08/24 10:53) did not feel well Precautions Isolation Standard precaution 08/08/24 10:56 Active Medications Generic Name Dose Route Start Last Admin Trade Name Fredeuce PRN Reason Stop Dose Admin Iohexol 80 ml 08/08/24 13:15 08/08/24 13:01 Omnipaque 350 Mg/Ml 100 Ml Btl IJ 09/07/24 23:59 80 ml DIRECTED WALTER Administration Sodium Chloride 50 ml 08/08/24 13:00 08/08/24 13:00 Normal Saline - Diluent 50 Ml Vial IJ 50 ml .FOR DI USE WALTER Administration IV IV Catheter Type [Right Upper Saline Lock arm] IV Catheter Gauge [Right Upper 18 arm] Diagnostics 08/08/24 08/08/24 08/08/24 Range/Units 13:53 13:35 12:38 WBC (4.4-10.8) 10^3/uL RBC (3.93-5.22) 10^6/uL Hgb (11.2-15.7) g/dL Hct (36.0-46.0) % MCV (80-95) fL MCH (27.0-33.0) pg MCHC (32.0-36.0) % RDW (11.7-14.6) % Plt Count (130-400) 10^3/uL MPV (8.0-11.0) fL Immature Gran % % Neutrophils % % Lymphocytes % % Monocytes % % Eosinophils % % Basophils % % Nucleated RBC % (0.0-0.3) % Absolute Neutrophils (1.2-6.7) 10^3/uL Absolute Lymphocytes (1.2-3.4) 10^3/uL Absolute Monocytes (0.1-0.8) 10^3/uL Absolute Eosinophils (0.0-0.7) 10^3/uL Absolute Basophils (0.0-0.2) 10^3/uL VBG pH 7.28 L 7.34 (7.31-7.41) VBG pCO2 71 H* 64 H* (41-51) mmHg VBG pO2 54 54 mmHg VBG HCO3 34 H 35 H (23-28) mmol/L VBG Total CO2 32 H 33 H (24-29) mmol/L VBG O2 Saturation 85 87 % VBG Base Excess 7 H 9 H (-2-3) mmol/L Sodium (136-145) mmol/L Potassium (3.5-5.1) mmol/L Chloride (98-107) mmol/L Carbon Dioxide (21.0-32.0) mmol/L Anion Gap (3-11) mmol/L BUN (7-18) mg/dL Creatinine (0.55-1.02) mg/dL Est GFR (CKD-EPI 2020) (mL/min/1.73m2) Glucose (74-106) mg/dL Calcium (8.5-10.1) mg/dL Magnesium (1.8-2.4) mg/dL Total Bilirubin (0.2-1.0) mg/dL AST (15-37) U/L ALT (14-59) U/L Alkaline Phosphatase (46-116) U/L Troponin I Cancelled (<or=51) ng/L NT-Pro-B Natriuret Pep (<300) pg/mL Total Protein (6.4-8.2) g/dL Albumin (3.4-5.0) g/dL Lipase (16-77) U/L Urine Color (Yellow) Urine Clarity (Clear) Urine pH (5-8) Ur Specific [place] (1.005-1.025) Urine Protein (Neg-Trace) mg/dL Urine Ketones (Negative) mg/dL Urine Blood (Negative) Urine Nitrite (Negative) Urine Bilirubin (Negative) Urine Urobilinogen (Up to 0.2) mg/dL Ur Leukocyte Esterase (Negative) Urine Glucose (Negative) mg/dL Digoxin (0.90-2.00) ng/mL 08/08/24 08/08/24 08/08/24 Range/Units 12:26 11:55 11:22 WBC 10.27 (4.4-10.8) 10^3/uL RBC 4.09 (3.93-5.22) 10^6/uL Hgb 11.2 (11.2-15.7) g/dL Hct 37.5 (36.0-46.0) % MCV 92 (80-95) fL MCH 27.4 (27.0-33.0) pg MCHC 29.9 L (32.0-36.0) % RDW 16.7 H (11.7-14.6) % Plt Count 590 H (130-400) 10^3/uL MPV 9.3 (8.0-11.0) fL Immature Gran % 0.5 % Neutrophils % 80.7 % Lymphocytes % 5.3 % Monocytes % 11.4 % Eosinophils % 1.4 % Basophils % 0.7 % Nucleated RBC % 0.0 (0.0-0.3) % Absolute Neutrophils 8.30 H (1.2-6.7) 10^3/uL Absolute Lymphocytes 0.54 L (1.2-3.4) 10^3/uL Absolute Monocytes 1.17 H (0.1-0.8) 10^3/uL Absolute Eosinophils 0.14 (0.0-0.7) 10^3/uL Absolute Basophils 0.07 (0.0-0.2) 10^3/uL VBG pH 7.29 L (7.31-7.41) VBG pCO2 70 H* (41-51) mmHg VBG pO2 52 mmHg VBG HCO3 34 H (23-28) mmol/L VBG Total CO2 32 H (24-29) mmol/L VBG O2 Saturation 83 % VBG Base Excess 7 H (-2-3) mmol/L Sodium 143 (136-145) mmol/L Potassium 4.0 (3.5-5.1) mmol/L Chloride 103 (98-107) mmol/L Carbon Dioxide 34.5 H (21.0-32.0) mmol/L Anion Gap 5.5 (3-11) mmol/L BUN 18 (7-18) mg/dL Creatinine 1.0 (0.55-1.02) mg/dL Est GFR (CKD-EPI 2020) 59.12 (mL/min/1.73m2) Glucose 143 H (74-106) mg/dL Calcium 9.2 (8.5-10.1) mg/dL Magnesium 2.1 (1.8-2.4) mg/dL Total Bilirubin 0.42 (0.2-1.0) mg/dL AST 382 H (15-37) U/L ALT 139 H (14-59) U/L Alkaline Phosphatase 234 H (46-116) U/L Troponin I 10 10 (<or=51) ng/L NT-Pro-B Natriuret Pep 1413 H (<300) pg/mL Total Protein 7.8 (6.4-8.2) g/dL Albumin 3.4 (3.4-5.0) g/dL Lipase 39 (16-77) U/L Urine Color Yellow (Yellow) Urine Clarity Clear (Clear) Urine pH 5.5 (5-8) Ur Specific [place] 1.015 (1.005-1.025) Urine Protein Negative (Neg-Trace) mg/dL Urine Ketones Negative (Negative) mg/dL Urine Blood Negative (Negative) Urine Nitrite Negative (Negative) Urine Bilirubin Negative (Negative) Urine Urobilinogen 0.2 (Up to 0.2) mg/dL Ur Leukocyte Esterase Negative (Negative) Urine Glucose Negative (Negative) mg/dL Digoxin 1.28 (0.90-2.00) ng/mL Intake and Output - 24 Hour Total 08/08/24 10:35 thru 08/08/24 10:48 Weight 65.8 kg Falls Risk Assessment History of Falls Previous History 08/08/24 11:08 Contributing Factors Medications 08/08/24 11:08 Ambulatory Aids Uses ambulatory device + 08/08/24 11:08 Tubes/Lines With any additional score 08/08/24 11:08 Cognition No cognitive impairment 08/08/24 11:08 Fall Total Score 68 08/08/24 11:08 Level of Risk High Risk 08/08/24 11:08 Problems (Last Updated 07/28/24 @ 17:55 by Allan Law) Abdominal right upper quadrant tenderness (Acute) Cholelithiasis (Acute) Elevated LFTs (Acute) Acute respiratory failure with hypoxia and hypercapnia (Acute) v v v v v v v v v Sending and/or Receiving Nurses: Please use comment section below to note any information pertinent to the patient hand-off not included above. Information / Comments: Report received from: SANTIAGO Jin from ED.
[2024-08-08] MEDS: Albuterol/Ipratropium 3 ML UPD VIAL IH ×2 (17:03→20:17)
[2024-08-08] MEDS: amLODIPine 10 MG TAB PO (19:50)
[2024-08-08] MEDS: Heparin 5,000 UNITS/ML VIAL 5000 UNITS SC (19:51)
[2024-08-08] MEDS: Normal Saline Flush 10 ML SYR IVP (19:52)
[2024-08-08] MEDS: Acetaminophen 500 MG TAB 1000 MG PO (23:12)
[2024-08-09] VITALS (12 sets, daily range): BP systolic 101–129; BP diastolic 51–62; PULSE 59–86; RESP 9–18; TEMP 36.2–36.8; O2SAT 89–96
[2024-08-09 06:13] LABS: Abs Immature Grans 0.06 10^3/uL (0.0-0.06); Absolute Basophil Count 0.06 10^3/uL (0.0-0.2); Absolute Eosinophil Count 0.52 10^3/uL (0.0-0.7); Absolute Lymphocyte Count 0.25 10^3/uL (1.2-3.4); Absolute Monocyte Count 1.04 10^3/uL (0.1-0.8); Absolute Neutrophil Count 8.15 10^3/uL (1.2-6.7); Basophils % 0.6 %; Eosinophils % 5.2 %; HGB 10.6 g/dL (11.2-15.7); Immature Grans % 0.6 %; Lymphocytes % 2.5 %; MCH 27.3 pg (27.0-33.0); MCHC 29.4 % (32.0-36.0); MCV 93 fL (80-95); MPV 9.3 fL (8.0-11.0); Monocytes % 10.3 %; Neutrophils % 80.8 %; Platelet Count 500 10^3/uL (130-400); RBC 3.88 10^6/uL (3.93-5.22); RDW 16.8 % (11.7-14.6); RDW-SD 57.7 fL; WBC 10.08 10^3/uL (4.4-10.8)
[2024-08-09 06:30] LABS: Anion Gap 5.5 mmol/L (3-11); BUN 11 mg/dL (7-18); CO2 34.5 mmol/L (21.0-32.0); CREATININE 0.9 mg/dL (0.55-1.02); Chloride 101 mmol/L (98-107); Estimated GFR 67.08 (mL/min/1.73m2); Glucose 104 mg/dL (74-106); Potassium 4.3 mmol/L (3.5-5.1); Sodium 141 mmol/L (136-145)
[2024-08-09 07:21] LABS: Lab Add On Test DONE
[2024-08-09 07:41] LABS: ALT 346 U/L (14-59); AST 301 U/L (15-37); Albumin 3.1 g/dL (3.4-5.0); Alkaline Phosphatase 277 U/L (46-116); Bilirubin, Direct 0.1 mg/dL (0.0-0.2); Bilirubin, Total 0.43 mg/dL (0.2-1.0); Total Protein 7.2 g/dL (6.4-8.2)
[2024-08-09] MEDS: Albuterol/Ipratropium 3 ML UPD VIAL IH (07:46)
[2024-08-09] MEDS: Budesonide/Formoterol 160/4.5 6 GM 60 PUFF INH IH ×2 (08:17→19:49)
[2024-08-09] MEDS: Docusate Sodium 100 MG CAP PO (08:28)
[2024-08-09] MEDS: amLODIPine 10 MG TAB PO ×2 (08:29→19:28)
[2024-08-09] MEDS: Heparin 5,000 UNITS/ML VIAL 5000 UNITS SC ×2 (08:29→19:28)
[2024-08-09] MEDS: Digoxin 0.125 MG TAB PO (08:29)
[2024-08-09] MEDS: Normal Saline Flush 10 ML SYR IVP ×2 (08:30→21:09)
[2024-08-09] MEDS: Esomeprazole 40 MG CAPCR PO (08:30)
[2024-08-09] MEDS: Montelukast 10 MG TAB PO (08:30)
[2024-08-09] MEDS: Furosemide 40 MG TAB PO (08:30)
--- NOTE | 2024-08-09 08:33 | PDOC.CMIN ---
Date of service: 08/09/24 Time of Service: 08:33 Care Management Initial Assmt Initial Assessment Reason for Hospitalization: Abdominal right upper quadrant tenderness Functional Status/Living Situation Patient Presentation: Jackie was sitting up in her chair when CM met with her. She stated that per MD, she will remain overnight in order to have an ultrasound tomorrow, and possibly an MRI, to determine her next steps. Jackie stated that she hopes she is able to have answers tomorrow about her abdominal pain. She stated that on this admission, so far, her breathing has been ok. She reported that her pain has resolved, and she was given food today, but expects that she will be NPO tomorrow for testing. CM will continue to follow. 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) Instrumental Activities of Daily Living (ADLs): Requires support with Dishes/food prep, Groceries, Heat/Utilities and Transportation Medications Medication Management: No Issues/Barriers identified Physical Functioning/Mobility Assistive Device: home O2, 2L baseline bipap, nebulizer FWW, cane Advance Directives Advance Directives: Do you have an Advance Directive: Y 02/10/13 10:22 AD On File at [facility]: Y 02/10/13 11:03 Date Asked 07/05/24 07/05/24 11:20 AD Date Reviewed 08/08/24 08/08/24 10:55 COLST On File at [facility] Yes 05/29/24 10:37 COLST Date Scanned 02/05/19 05/29/24 10:37 Code Status Resuscitation Status DNR/DNI Insurance Coverage/Financial Issues Insurance: [facility] Care Team Visit Care Team Role Provider Type Deven Roberto NP Primary Care Provider NURSE PRACTITIONER Otilio Romo MD Emergency Provider [facility] STAFF PHYSICIAN Vinh Rojo MD Admit Provider [facility] STAFF PHYSICIAN Attending Provider Discharge Potential Discharge Needs: Surgical F/U Appt Anticipated Barriers to Discharge: None Identified Patient/Family Education Needs: Review discharge instructions, discuss Ask Me Three Transportation: Private vehicle Plan: Anticipate Jackei will return home with a resumption of RN, PT, [facility] Her son will drive her home via private vehicle when ready. She will follow up with her PCP and discharge plan of care. CM will continue to follow. [facility] All Active Problems Abdominal right upper quadrant tenderness (Acute) Cholelithiasis (Acute) Elevated LFTs (Acute) Acute respiratory failure with hypoxia and hypercapnia (Acute) Chronic respiratory failure (Acute) Goals of care, counseling/discussion (Acute) Right ventricular failure (Acute) Pulmonary infiltrates (Acute) Chronic hypoxic respiratory failure (Acute) Sacral decubitus ulcer (Acute) Uvular swelling (Acute) Chronic obstructive lung disease (Chronic) h/o tobacco use, quit 2008 CAP (community acquired pneumonia) (Acute) COPD exacerbation (Acute) Cervical arthritis with myelopathy (Acute) Arthritis (Acute 02/10/13) Osteoporosis (Acute 01/14/08) Tachycardia (Chronic) Medical History PAF (paroxysmal atrial fibrillation) History of GI diverticular bleed Emphysema lung Hypercapnic respiratory failure Pulmonary hypertension Anemia Heart failure with preserved ejection fraction (HFpEF, >= 50%) GERD (gastroesophageal reflux disease) GI bleed Bilateral lower extremity edema Acute respiratory failure with hypoxia COVID-[address] Tobacco dependence due to cigarettes Quit smoking when she was 59 years old COVID-19 -associated with COPD exacerbation Parotid mass Resolved after 3 months without intervention Acute on chronic respiratory failure with hypoxia and hypercapnia Hypomagnesemia Acute on chronic diastolic CHF (congestive heart failure) CAP (community acquired pneumonia) HTN (hypertension) GERD (gastroesophageal reflux disease) HTN (hypertension) Surgical History Endoscopic Carpal Tunnel release (03/31/13) Left 7.2.13 Family History Mother Essential hypertension Hyperlipidemia Adopted Dementia Father Heart disease Neoplasm LUNG Lung cancer Sister No problems noted. Sister No problems noted. Brother No problems noted. Brother No problems noted. Maternal Grandfather Stroke Paternal Grandfather Heart disease Maternal Grandmother Heart disease Paternal Grandmother Stroke Son Diabetes Essential hypertension Daughter No problems noted. Social History Smoking/Tobacco Use Status: Former Tobacco Use tobacco type: cigarettes Quit Date: 09/30/13 Tobacco: How many years used: 56 Quit status: quit date established Second Hand Exposure: Yes Smoking risk assessment performed?: Yes Alcohol Intake: never Drug use: Never Substance use type: does not use Counseling given: No Counseling provided: none Caregiver/Support person: No Household members: family Housing: house Communication Needs: None Do you need help understanding health information?: Never Pets and animals: Yes Pets and animals: dog(s) Sexually active: No Do you think of yourself as: straight/heterosexual Current gender identity: female What is your relationship status?: How often do you talk on the phone with friends or family?: three or more times per week How often do you get together with friends or relatives?: three or more times per week Do you belong to any clubs or organized social groups?: no Panel score (0-1 are the most socially isolated patients): 1 What type of physical activity do you participate in: none Special juan needs: No Seatbelt use: sometimes Helmet use: No Drive intox or ride w/intox pile driver operator: No Do you feel safe at home: Yes Do you feel safe in your relationship?: Yes Additional Social history: [facility] Female Reproductive History Menstrual Menopause type: natural Readmission Within the Past 30 Days Yes or No: Yes Date of First Admission Date of 1st Admission: 08/28/24 Date of this Admission Date of Admission: 08/08/24 This admission was: Through ED Office Visit Since 1st Admission Have you seen your PCP in the office since discharge?: No Had an appointment Been Scheduled?: Yes Date of Scheduled Appointment: 08/11/24 I. Interview patient and/or Family Difficulty reaching your doctor or getting an office appt?: No How do you take your medications and set up your pills?: independently Have you had trouble with getting meals at home?: No Did you feel ready for discharge when you left the last time: Yes What services were received?: HH RN, PT, [facility] ED visits How many ED visits in the past 12 months: 5 Assessment for Readmission Summary of readmission circumstances, based upon interviews: Jackie has had six admissions in the previous three months, many related to hypoxic respiratory failure/COPD. This admission she presented with abdominal pain, and was admitted under surgical services. Jackie prefers to be home, and will return home with a resumption of HH services once she is medically cleared. Her son will drive her home when ready. She will follow up with her PCP and discharge plan of care. CM will continue to follow. SDOH(Care Management) Screening Will the Patient Participate in the Screening?: Yes Do you worry about having a steady place to live?: no Problems where you live: no known problems In the past 12 months, have you had to go without electric, gas, oil or water in your home?: no Have you or anyone in your house had to go without enough food to eat?: no Has lack of transportation kept you from medical appointments or from doing things needed for daily living?: no Has anyone in your support network made you feel unsafe for any reason?: no
[2024-08-09] MEDS: Acetaminophen 500 MG TAB 1000 MG PO ×2 (08:39→19:28)
--- NOTE | 2024-08-09 10:13 | W.PM.PROGNOT ---
Date of Service Date of service: 08/09/24 Time of Service: 10:13 Assessment and Plan Assessment and plan (1) Abdominal right upper quadrant tenderness: Status: Acute Assessment and plan: At this point, the symptoms have resolved. Interestingly, however, her LFTs and alk phos continue to rise, without any significant change in the bilirubin or white blood cell count. Upon further review of her chart, I see that there is evidence of a right-sided pulmonary nodule with some features concerning for malignancy. Jackie and I talked about this for a little while, and she is made a conscientious decision to forego any type of diagnostics at this point given that she would not have any interest in any therapeutic content for treatment were cure if that was cancer. Although I think it is unlikely that she has metastatic lung cancer at least based on some of her gross imaging, this does complicate interpretation of the liver function tests a little bit more. If cholecystitis was the true cause, I think her symptoms would be at the very least consistent if not worsening. For now, I will advance her diet a little bit today, and see if that impacts her symptoms at all. Will also plan for a formal ultrasound tomorrow to better characterize some of the features of the gallbladder. If those help refine the diagnosis, then we can move forward with the plan at that point. Alternatively, if those results are equivocal, I suppose MRI of the gallbladder would be the next best step. Subjective Subjective Interval history since last seen: Jackie did very well since her admission yesterday. She has had no further episodes of any type of abdominal or chest pain. She does have a headache, which she tells me frequently happens when she gets nervous or anxious. She is not particularly bothered by it. She has been tolerating clear liquids without any nausea. She does not have much appetite yet, but overall feels back to baseline. Exam GI Other: Her abdomen is soft and nondistended. She is not tender. She has bowel sounds. Objective Last Vital Signs Temp 98.2 F 08/09/24 07:53 Pulse 63 08/09/24 08:29 Resp 18 08/09/24 08:15 BP 110/56 L 08/09/24 07:53 Pulse Ox 93 08/09/24 08:15 Laboratory Results - last 24 hr 08/08/24 08/08/24 08/08/24 11:22 11:55 12:26 WBC 10.27 RBC 4.09 Hgb 11.2 Hct 37.5 MCV 92 MCH 27.4 MCHC 29.9 L RDW 16.7 H Plt Count 590 H MPV 9.3 Immature Gran % 0.5 Neutrophils % 80.7 Lymphocytes % 5.3 Monocytes % 11.4 Eosinophils % 1.4 Basophils % 0.7 Nucleated RBC % 0.0 Absolute Neutrophils 8.30 H Absolute Lymphocytes 0.54 L Absolute Monocytes 1.17 H Absolute Eosinophils 0.14 Absolute Basophils 0.07 VBG pH 7.29 L VBG pCO2 70 H* VBG pO2 52 VBG HCO3 34 H VBG Total CO2 32 H VBG O2 Saturation 83 VBG Base Excess 7 H Sodium 143 Potassium 4.0 Chloride 103 Carbon Dioxide 34.5 H Anion Gap 5.5 BUN 18 Creatinine 1.0 Est GFR (CKD-EPI 2020) 59.12 Glucose 143 H Calcium 9.2 Magnesium 2.1 Total Bilirubin 0.42 Conjugated Bilirubin AST 382 H ALT 139 H Alkaline Phosphatase 234 H Troponin I 10 10 NT-Pro-B Natriuret Pep 1413 H Total Protein 7.8 Albumin 3.4 Lipase 39 Urine Color Yellow Urine Clarity Clear Urine pH 5.5 Ur Specific [place] 1.015 Urine Protein Negative Urine Ketones Negative Urine Blood Negative Urine Nitrite Negative Urine Bilirubin Negative Urine Urobilinogen 0.2 Ur Leukocyte Esterase Negative Urine Glucose Negative Digoxin 1.28 Add-On Test Request 08/08/24 08/08/24 08/08/24 12:38 13:35 13:53 WBC RBC Hgb Hct MCV MCH MCHC RDW Plt Count MPV Immature Gran % Neutrophils % Lymphocytes % Monocytes % Eosinophils % Basophils % Nucleated RBC % Absolute Neutrophils Absolute Lymphocytes Absolute Monocytes Absolute Eosinophils Absolute Basophils VBG pH 7.34 7.28 L VBG pCO2 64 H* 71 H* VBG pO2 54 54 VBG HCO3 35 H 34 H VBG Total CO2 33 H 32 H VBG O2 Saturation 87 85 VBG Base Excess 9 H 7 H Sodium Potassium Chloride Carbon Dioxide Anion Gap BUN Creatinine Est GFR (CKD-EPI 2020) Glucose Calcium Magnesium Total Bilirubin Conjugated Bilirubin AST ALT Alkaline Phosphatase Troponin I Cancelled NT-Pro-B Natriuret Pep Total Protein Albumin Lipase Urine Color Urine Clarity Urine pH Ur Specific [place] Urine Protein Urine Ketones Urine Blood Urine Nitrite Urine Bilirubin Urine Urobilinogen Ur Leukocyte Esterase Urine Glucose Digoxin Add-On Test Request 08/09/24 05:50 WBC 10.08 RBC 3.88 L Hgb 10.6 L Hct 36.0 MCV 93 MCH 27.3 MCHC 29.4 L RDW 16.8 H Plt Count 500 H MPV 9.3 Immature Gran % 0.6 Neutrophils % 80.8 Lymphocytes % 2.5 Monocytes % 10.3 Eosinophils % 5.2 Basophils % 0.6 Nucleated RBC % 0.0 Absolute Neutrophils 8.15 H Absolute Lymphocytes 0.25 L Absolute Monocytes 1.04 H Absolute Eosinophils 0.52 Absolute Basophils 0.06 VBG pH VBG pCO2 VBG pO2 VBG HCO3 VBG Total CO2 VBG O2 Saturation VBG Base Excess Sodium 141 Potassium 4.3 Chloride 101 Carbon Dioxide 34.5 H Anion Gap 5.5 BUN 11 Creatinine 0.9 Est GFR (CKD-EPI 2020) 67.08 Glucose 104 Calcium 9.0 Magnesium Total Bilirubin 0.43 Conjugated Bilirubin 0.1 AST 301 H ALT 346 H Alkaline Phosphatase 277 H Troponin I NT-Pro-B Natriuret Pep Total Protein 7.2 Albumin 3.1 L Lipase Urine Color Urine Clarity Urine pH Ur Specific [place] Urine Protein Urine Ketones Urine Blood Urine Nitrite Urine Bilirubin Urine Urobilinogen Ur Leukocyte Esterase Urine Glucose Digoxin Add-On Test Request DONE Time Spent with Patient Time Spent with Patient: 35-49 minutes Time was spent: preparing to see the patient(eg.review tests), ordering medications,tests, procedures, indepentently interpreting results, counseling the patient and care coordination
--- NOTE | 2024-08-09 12:53 | MCONE_ITS ---
Date of service: 08/09/24 Time of Service: 12:53 Assessment and Plan Assessment and plan (1) Abdominal right upper quadrant tenderness: Status: Acute Assessment and plan: RUQ pain a/w acutely elevated transaminases and alk phos, normal bili, suggesting hepatocellular injury, though gallbladder abnormality on CT. Clinically improved with resolution of abdominal pain and tenderness. I'm not sure of the etiology. Pattern less c/w biliary given lab pattern, though clinically the pain was initially c/w bilary colic. JORY is consideration, but she was not given new medications last admission that could cause this. Digoxin relatively new but does not commonly cause this. u/s pending. Get acute hepatitis panel. Monitor INR. If AST/ALT continue trending up we should get further work up, consider autoimmune labs. Qualifiers: Presence of rebound: absent Qualified Code(s): R10.811 - Right upper quadrant abdominal tenderness (2) Heart failure with preserved ejection fraction (HFpEF, >= 50%): Assessment and plan: Not in CHF clinically. BNaP elevated but lower than prevoius admissions. I don't think hepatic congestion is cause of liver inflammation. Continue current furosemide, monitor Qualifiers: Heart failure chronicity: acute on chronic Qualified Code(s): I50.33 - Acute on chronic diastolic (congestive) heart failure (3) PAF (paroxysmal atrial fibrillation): Assessment and plan: Rate controlled on digoxin currently. Digoxin level okay, though on high end of goal for female. Will cut dose slightly (4) Chronic obstructive lung disease: Status: Chronic Assessment and plan: At baseline currently, though some hypercarbia on admission, has normalized clinically. Repeat VBG to confirm wiht next blood draw. continue outpatient inhalers. Qualifiers: COPD type: emphysema Emphysema type: unspecified Qualified Code(s): J 43.9 - Emphysema, unspecified History of Present Illness History of Present Illness Chief Complaint: abdominal pain Narrative: 73 yo F with recent admissions for COPD, atrial fibrillation, and HFpEF on 2 liters home O2 who presented 08/08 with abdominal pain and admitted by surgery with 2 weeks of epigastric abdominal pain concerning for biliary colic. Her pain has improved since admission. No pain currently. She at lunch and did not have pain or nausea/vomiting. She had a BM this morning without pain. Her breathing is at her baseline. No chest pain or palpitaitons. Edema is also at her baseline, wearing stockings. Review of Systems All systems reviewed & are unremarkable except as noted in HPI and below Constitutional Constitutional: Denies chills and Denies fever(s) Respiratory Respiratory: Denies cough, Denies excessive phlegm production and Denies wheezing Gastrointestinal Gastrointestinal: Reports as per HPI, Denies melena, Denies hematochezia and Denies diarrhea Genitourinary Genitourinary: Denies hematuria and Denies difficulty voiding Neurologic Neurologic: Denies confusion Psychiatric Psychiatric: Denies confusion Allergic/Immunologic Allergic/Immunologic: Denies wheezing PFSH All Active Problems Abdominal right upper quadrant tenderness (Acute) Cholelithiasis (Acute) Elevated LFTs (Acute) Acute respiratory failure with hypoxia and hypercapnia (Acute) Chronic respiratory failure (Acute) Goals of care, counseling/discussion (Acute) Right ventricular failure (Acute) Pulmonary infiltrates (Acute) Chronic hypoxic respiratory failure (Acute) Sacral decubitus ulcer (Acute) Uvular swelling (Acute) CAP (community acquired pneumonia) (Acute) COPD exacerbation (Acute) Cervical arthritis with myelopathy (Acute) Arthritis (Acute 02/10/13) Chronic obstructive lung disease (Chronic) h/o tobacco use, quit 2008 Osteoporosis (Acute 01/14/08) Tachycardia (Chronic) Medical History PAF (paroxysmal atrial fibrillation) History of GI diverticular bleed Emphysema lung Hypercapnic respiratory failure Pulmonary hypertension Anemia Heart failure with preserved ejection fraction (HFpEF, >= 50%) GERD (gastroesophageal reflux disease) GI bleed Bilateral lower extremity edema Acute respiratory failure with hypoxia COVID-[address] Tobacco dependence due to cigarettes Quit smoking when she was 59 years old COVID-19 -associated with COPD exacerbation Parotid mass Resolved after 3 months without intervention Acute on chronic respiratory failure with hypoxia and hypercapnia Hypomagnesemia Acute on chronic diastolic CHF (congestive heart failure) CAP (community acquired pneumonia) HTN (hypertension) GERD (gastroesophageal reflux disease) HTN (hypertension) Surgical History Endoscopic Carpal Tunnel release (03/31/13) Left 7.2.13 Family History Mother Essential hypertension Hyperlipidemia Adopted Dementia Father Heart disease Neoplasm LUNG Lung cancer Sister No problems noted. Sister No problems noted. Brother No problems noted. Brother No problems noted. Maternal Grandfather Stroke Paternal Grandfather Heart disease Maternal Grandmother Heart disease Paternal Grandmother Stroke Son Diabetes Essential hypertension Daughter No problems noted. Social History Smoking/Tobacco Use Status: Former Tobacco Use tobacco type: cigarettes Quit Date: 09/30/13 Tobacco: How many years used: 56 Quit status: quit date established Second Hand Exposure: Yes Smoking risk assessment performed?: Yes Alcohol Intake: never Drug use: Never Substance use type: does not use Counseling given: No Counseling provided: none Caregiver/Support person: No Household members: family Housing: house Communication Needs: None Do you need help understanding health information?: Never Pets and animals: Yes Pets and animals: dog(s) Sexually active: No Do you think of yourself as: straight/heterosexual Current gender identity: female What is your relationship status?: How often do you talk on the phone with friends or family?: three or more times per week How often do you get together with friends or relatives?: three or more times per week Do you belong to any clubs or organized social groups?: no Panel score (0-1 are the most socially isolated patients): 1 What type of physical activity do you participate in: none Special juan needs: No Seatbelt use: sometimes Helmet use: No Drive intox or ride w/intox bung driver: No Do you feel safe at home: Yes Do you feel safe in your relationship?: Yes Additional Social history: Lives with Son [facility] Female Reproductive History Menstrual Menopause type: natural Exam Narrative Exam Narrative: GEN: A&O x 4, NAD HEENT: NC/AT, MMM, no icterus Neck: supple, trachea midline, no clear elevations JVP Resp: speaks in full sentences, lungs CTAB with normal effort, no ,RLL fine crackles, diminished left base Cardio: irregularly irregular around 80bpm, no murmur, GI: Abdomen is not distended, soft and non tender, bowel sounds are present Extremities: LE's edema 1+ royer, not tender. Psych: normal thought process, nl mood and affect NEURO: CN 2-12 grossly intact. Normal movement 4 ext. Normal speech and coordination. no tremor Results Last Vital Signs Temp 36.7 C 08/09/24 10:59 Pulse 82 08/09/24 10:59 Resp 15 08/09/24 10:59 BP 101/54 L 08/09/24 10:59 Pulse Ox 96 08/09/24 10:59 Labs 08/09/24 05:50 08/09/24 05:50 Labs: Laboratory Results - last 24 hr 08/08/24 08/08/24 08/08/24 12:26 13:35 13:53 WBC RBC Hgb Hct MCV MCH MCHC RDW Plt Count MPV Immature Gran % Neutrophils % Lymphocytes % Monocytes % Eosinophils % Basophils % Nucleated RBC % Absolute Neutrophils Absolute Lymphocytes Absolute Monocytes Absolute Eosinophils Absolute Basophils VBG pH 7.28 L VBG pCO2 71 H* VBG pO2 54 VBG HCO3 34 H VBG Total CO2 32 H VBG O2 Saturation 85 VBG Base Excess 7 H Sodium Potassium Chloride Carbon Dioxide Anion Gap BUN Creatinine Est GFR (CKD-EPI 2020) Glucose Calcium Total Bilirubin Conjugated Bilirubin AST ALT Alkaline Phosphatase Troponin I 10 Cancelled Total Protein Albumin Add-On Test Request 08/09/24 05:50 WBC 10.08 RBC 3.88 L Hgb 10.6 L Hct 36.0 MCV 93 MCH 27.3 MCHC 29.4 L RDW 16.8 H Plt Count 500 H MPV 9.3 Immature Gran % 0.6 Neutrophils % 80.8 Lymphocytes % 2.5 Monocytes % 10.3 Eosinophils % 5.2 Basophils % 0.6 Nucleated RBC % 0.0 Absolute Neutrophils 8.15 H Absolute Lymphocytes 0.25 L Absolute Monocytes 1.04 H Absolute Eosinophils 0.52 Absolute Basophils 0.06 VBG pH VBG pCO2 VBG pO2 VBG HCO3 VBG Total CO2 VBG O2 Saturation VBG Base Excess Sodium 141 Potassium 4.3 Chloride 101 Carbon Dioxide 34.5 H Anion Gap 5.5 BUN 11 Creatinine 0.9 Est GFR (CKD-EPI 2020) 67.08 Glucose 104 Calcium 9.0 Total Bilirubin 0.43 Conjugated Bilirubin 0.1 AST 301 H ALT 346 H Alkaline Phosphatase 277 H Troponin I Total Protein 7.2 Albumin 3.1 L Add-On Test Request DONE Imaging Chest x-ray: report reviewed (no acute findings) and image reviewed Abdomen CT scan report/results: report reviewed CT scan - pelvis: report reviewed EKG: report reviewed and image reviewed (atrial fibrillation, no ischemic changes) Imaging Studies: CT abd/pelvis: 1. Asymmetric thickening of the wall of the gallbladder fundus. Further evaluation with gallbladder ultrasound and or MRI of the abdomen is recommended to exclude gallbladder mass. No cholelithiasis or biliary ductal dilatation. 2. Possible ileus in the small bowel. 3. No evidence of bowel obstruction.
--- NOTE | 2024-08-10 | DI.US_ITS ---
Exam(s) US ABDOMEN EXAM: US ABDOMEN CLINICAL HISTORY: Rule out cholecystitis TECHNIQUE: Ultrasound abdomen performed using standard protocol. COMPARISON: US POCUS EXAM from 08/08/[address] ABDOMEN PELVIS W from 08/08/2024 FINDINGS: LIVER: Normal size and echogenicity. No focal liver lesions are seen. GALLBLADDER: Few mobile stones are noted. Mild wall thickening near the fundus.. No pericholecystic fluid identified. HEWITT'S SIGN: Negative. BILIARY SYSTEM: No intrahepatic or extrahepatic biliary ductal dilation. KIDNEYS: Kidneys are symmetric in size. No evidence of renal calculi. No evidence of hydronephrosis. Small right renal cyst. No suspicious renal mass identified. PANCREAS: Normal where visualized. SPLEEN: Not enlarged. ABDOMINAL AORTA AND IVC: Visualized portions normal caliber. ASCITES: None seen. IMPRESSION: Mobile cholelithiasis. Wall thickening near fundus. No evidence of acute cholecystitis. DATA REPOSITORY:
[2024-08-10 01:00] VITALS: PULSE 74; RESP 23; O2SAT 89
[2024-08-10 01:01] VITALS: O2SAT 89
[2024-08-10 03:47] VITALS: BP 129/73; PULSE 82; RESP 16; TEMP 36.4; O2SAT 95
[2024-08-10 06:08] LABS: BE (Venous) 9 mmol/L (-2-3); HCO3 (Venous) 35 mmol/L (23-28); O2 Sat (Venous) 86 %; TCO2 (Venous) 33 mmol/L (24-29); pH (Venous) 7.35 (7.31-7.41); pO2 (Venous) 51 mmHg
[2024-08-10 06:12] LABS: HCT 36.2 % (36.0-46.0); HGB 10.7 g/dL (11.2-15.7); MCH 27.3 pg (27.0-33.0); MCHC 29.6 % (32.0-36.0); MCV 92 fL (80-95); MPV 9.3 fL (8.0-11.0); Platelet Count 454 10^3/uL (130-400); RBC 3.92 10^6/uL (3.93-5.22); RDW 16.7 % (11.7-14.6); RDW-SD 56.5 fL; WBC 6.95 10^3/uL (4.4-10.8)
[2024-08-10 06:16] LABS: pCO2 (Venous) 63 mmHg (41-51)
[2024-08-10 06:27] LABS: Anion Gap 5.1 mmol/L (3-11); BUN 11 mg/dL (7-18); CO2 33.9 mmol/L (21.0-32.0); CREATININE 0.8 mg/dL (0.55-1.02); Calcium 9.2 mg/dL (8.5-10.1); Chloride 99 mmol/L (98-107); Estimated GFR 77.27 (mL/min/1.73m2); Glucose 106 mg/dL (74-106); Potassium 4.7 mmol/L (3.5-5.1); Sodium 138 mmol/L (136-145)
[2024-08-10 06:28] LABS: Prothrombin Time 9.8 sec (9.1-11.1)
[2024-08-10 06:32] LABS: ALT 221 U/L (14-59); AST 91 U/L (15-37); Alkaline Phosphatase 249 U/L (46-116); Bilirubin, Direct 0.1 mg/dL (0.0-0.2); Bilirubin, Total 0.25 mg/dL (0.2-1.0); Total Protein 7.2 g/dL (6.4-8.2)
[2024-08-10 07:16] VITALS: BP 126/58; PULSE 96; RESP 18; TEMP 36.4; O2SAT 89
[2024-08-10] MEDS: Budesonide/Formoterol 160/4.5 6 GM 60 PUFF INH IH (07:41)
[2024-08-10] MEDS: Esomeprazole 40 MG CAPCR PO (08:11)
[2024-08-10] MEDS: Digoxin 0.125 MG TAB 0.0625 MG PO (08:11)
[2024-08-10] MEDS: amLODIPine 10 MG TAB PO (08:12)
[2024-08-10] MEDS: Furosemide 20 MG TAB PO (08:12)
[2024-08-10] MEDS: Docusate Sodium 100 MG CAP PO (08:12)
[2024-08-10] MEDS: Montelukast 10 MG TAB PO (08:12)
[2024-08-10] MEDS: Normal Saline Flush 10 ML SYR IVP (08:13)
[2024-08-10] MEDS: Heparin 5,000 UNITS/ML VIAL 5000 UNITS SC (09:54)
--- NOTE | 2024-08-10 12:37 | PHA.REVIEW2 ---
Pharmacy Admission Review Admission Clinical Review Admission Pharmacy Review: Abdominal right upper quadrant tenderness (Acute) Cholelithiasis (Acute) Elevated LFTs (Acute) Acute respiratory failure with hypoxia and hypercapnia (Acute) lorazepam (From Ativan) Allergy (Severe, Verified 08/08/24 10:53) Anaphylaxis diltiazem Allergy (Intermediate, Verified 08/08/24 10:53) LE and Facial Edema hydrochlorothiazide Allergy (Mild, Verified 08/08/24 10:53) rash Sulfa (Sulfonamide Antibiotics) Allergy (Unknown, Verified 08/08/24 10:53) Other (See Comment) umeclidinium (From Incruse Ellipta) Adverse Reaction (Severe, Verified 08/08/24 10:53) Anaphylaxis metoprolol Adverse Reaction (Intermediate, Verified 08/08/24 10:53) Fluid Retention lisinopril Adverse Reaction (Mild, Verified 08/08/24 10:53) did not feel well Resuscitation Status DNR/DNI Height 5 ft Weight 64.864 kg Pharmacy Admission Review Renal Dosing Renal Dosing: BUN 11 mg/dL (7-18) 08/10/24 06:00 Creatinine 0.8 mg/dL (0.55-1.02) 08/10/24 06:00 Medications needing adjustments: Reviewed (crcl = 41) List of meds needing interventions: current meds ok. digoxin adjusted based on level drawn 08/08 Anticoagulation Anticoagulation: Hgb 10.7 g/dL (11.2-15.7) L 08/10/24 06:00 Hct 36.2 % (36.0-46.0) 08/10/24 06:00 Plt Count 454 10^3/uL (130-400) H 08/10/24 06:00 INR 1.0 (0.9-1.1) 08/10/24 06:00 Creatinine 0.8 mg/dL (0.55-1.02) 08/10/24 06:00 DVT Prophylaxis: Reviewed Medications: Heparin (5000 units subq q12h) Therapeutic Anticoagulation: N/A Opiate Usage Evaluate Pain Scale/Pains Meds: Reviewed (dilaudid 0.5 mg IV q6h prn ordered, has not had any. morphine 4 mg IV x 1 in ED 08/08) Scheduled Bowel Reg ordered if on Opiates?: Yes (michael colace + prn miralax) Relevant Labs Relevant Labs: Sodium 138 mmol/L (136-145) 08/10/24 06:00 Potassium 4.7 mmol/L (3.5-5.1) 08/10/24 06:00 Chloride 99 mmol/L (98-107) 08/10/24 06:00 Magnesium 2.1 mg/dL (1.8-2.4) 08/08/24 11:22 Electrolytes, C-Reactive P, ESR: Reviewed (AST/ALT elevated but trending down) DM Control DM Control: Reviewed (no diabetes diagnosis, no a1c in chart) Cardiac Review Cardiac Review: Troponin I Cancelled 08/08/24 13:53 NT-Pro-B Natriuret Pep 1413 pg/mL (<300) H 08/08/24 11:22 BP, HR, EF%: Reviewed List meds needing interventions: digoxin dose adjustment based on level on 08/08 = 1.28 (not technically elevated but high normal for female) currently ordered: 0.125 mg q48h alternating with 0.0625 mg q48h, confirmed w/Dr. Greene) QTc Review QTc: Reviewed (QTc = 469 08/08/24) List meds needing interventions: n/a IV to PO Switch IV Medications: Reviewed (only zofran ordered IV (hasn't received any), all other meds PO) Home Meds Home Med List reviewed: Reviewed Current Meds Current Medication Order Review: Reviewed
--- NOTE | 2024-08-10 12:46 | W.PM.PROGNOT ---
Date of Service Date of service: 08/10/24 Time of Service: 12:47 Assessment and Plan Assessment and plan (1) Abdominal right upper quadrant tenderness: Status: Acute Assessment and plan: RUQ pain a/w acutely elevated transaminases and alk phos, normal bili, suggesting hepatocellular injury. Gallbladder neck thickened on CT and u/s, but no cholecystitis. Clinically improved with resolution of abdominal pain, only mild tenderness. I'm not sure of the etiology. Symptoms/history c/w biliary colic given episodic nature and onset after eating. Lab pattern less so. JORY is consideration, but she was not given new medications last admission that could cause this. Digoxin relatively new but does not commonly cause this. AST/ALT now improving. INR reassuring. Whatever caused the hepatocellular injury is now improving. At this point, I will defer to surgery regarding indication for cholecystectomy or additional evaluation. Follow AST/ALT Qualifiers: Presence of rebound: absent Qualified Code(s): R10.811 - Right upper quadrant abdominal tenderness (2) Heart failure with preserved ejection fraction (HFpEF, >= 50%): Assessment and plan: Not in CHF clinically. BNaP elevated on admission but lower than prevoius admissions. I don't think hepatic congestion is cause of liver inflammation. Continue current furosemide, monitor Qualifiers: Heart failure chronicity: acute on chronic Qualified Code(s): I50.33 - Acute on chronic diastolic (congestive) heart failure (3) PAF (paroxysmal atrial fibrillation): Assessment and plan: Rate controlled on digoxin currently. Digoxin level on high end of goal for female. Will cut dose slightly, monitor pulse. (4) Chronic obstructive lung disease: Status: Chronic Assessment and plan: At baseline clinically currently, though some hypercarbia on admission, has normalized clinically. Repeat VBG to shows she is roughly at baseline C02. Continue outpatient inhalers. Qualifiers: COPD type: emphysema Emphysema type: unspecified Qualified Code(s): J43.9 - Emphysema, unspecified Subjective Subjective Patient reports: no new complaints and voiding w/o difficulty; denies blood in stool, vomiting or fever Interval history since last seen: No new episodes of pain. She ate after her u/s this morning, no increased pain there either. Breathing remains at baseline. no chest pain. Exam Narrative Exam Narrative: GEN: A&O x 4, NAD HEENT: MMM, no icterus Resp: speaks in full sentences, lungs CTAB with normal effort, no , diffusely diminished but no wheeze/rales Cardio: irregularly irregular around 80s-90s bpm, no murmur GI: Abdomen is not distended, soft. Mild RUQ tenderness, neg murphies, bowel sounds are present Extremities: trace LE's edema 1+ royer, not tender. Psych: normal thought process, nl mood and affect Objective Last Vital Signs Temp 36.4 C L 08/10/24 07:16 Pulse 96 H 08/10/24 07:16 Resp 18 08/10/24 07:16 BP 126/58 L 08/10/24 07:16 Pulse Ox 89 L 08/10/24 07:16 Laboratory Results - last 24 hr 08/10/24 08/10/24 05:35 06:00 WBC 6.95 RBC 3.92 L Hgb 10.7 L Hct 36.2 MCV 92 MCH 27.3 MCHC 29.6 L RDW 16.7 H Plt Count 454 H MPV 9.3 PT Cancelled 9.8 INR Cancelled 1.0 VBG pH 7.35 VBG pCO2 63 H* VBG pO2 51 VBG HCO3 35 H VBG Total CO2 33 H VBG O2 Saturation 86 VBG Base Excess 9 H Sodium 138 Potassium 4.7 Chloride 99 Carbon Dioxide 33.9 H Anion Gap 5.1 BUN 11 Creatinine 0.8 Est GFR (CKD-EPI 2020) 77.27 Glucose 106 Calcium 9.2 Total Bilirubin 0.25 Conjugated Bilirubin 0.1 AST 91 H ALT 221 H Alkaline Phosphatase 249 H Total Protein 7.2 Albumin 3.0 L Time Spent with Patient Time Spent with Patient: 35-49 minutes Time was spent: preparing to see the patient(eg.review tests), obtaining and/or reviewing separately otained hiistory, ordering medications,tests, procedures, referring, communicating with other health emergency care attendant, indepentently interpreting results, counseling the patient and care coordination
--- NOTE | 2024-08-10 13:19 | PDOC.CMPRO ---
Date of service: 08/10/24 Time of Service: 13:19 Care Management Progress Note Discharge Potential Discharge Needs: PCP F/U Appt Anticipated Barriers to Discharge: None Identified Patient/Family Education Needs: Review discharge instructions, discuss Ask Me Three Transportation: Private vehicle Plan: Anticipate Jackie will return home with a resumption of RN, PT, NEWSPAPER CLIPPER. Her son will drive her home via private vehicle when ready. She will follow up with her PCP and discharge plan of care. CM will continue to follow. SDOH(Care Management) Screening Will the Patient Participate in the Screening?: Yes Do you worry about having a steady place to live?: no Problems where you live: no known problems In the past 12 months, have you had to go without electric, gas, oil or water in your home?: no Have you or anyone in your house had to go without enough food to eat?: no Has lack of transportation kept you from medical appointments or from doing things needed for daily living?: no Has anyone in your support network made you feel unsafe for any reason?: no Health Related Social Needs Health related social needs: housing instability, housed, with risk of homelessness(Z59.811)
[2024-08-10 15:04] VITALS: BP 112/56; PULSE 90; RESP 18; TEMP 36.7; O2SAT 93
--- NOTE | 2024-08-10 15:53 | DSE_ITS ---
Date of service: 08/10/24 Time of Service: 15:53 DS: Diagnosis Discharge Diagnosis (1) Abdominal right upper quadrant tenderness: Status: Acute (2) Heart failure with preserved ejection fraction (HFpEF, >= 50%): (3) PAF (paroxysmal atrial fibrillation): (4) Chronic obstructive lung disease: Status: Chronic (5) Elevated LFTs: Status: Acute (6) Cholelithiasis: Status: Acute (7) CVA (cerebral vascular accident): Status: Resolved (8) Chronic hypoxic respiratory failure: Status: Acute (9) GERD (gastroesophageal reflux disease): (10) Pulmonary hypertension: (11) Anemia: Discharge Plan Disposition Patient Disposition: Home Condition: Good Discharge Details Reason For Visit: [place]/Chest Pain Admit Date/Time: 08/08/24 15:05 Admit Provider: Vinh Rojo Attending Provider: Vinh Rojo Primary Care Provider: Deven Collier Hospital Course Hospital Course: see addendum Home Meds and New Rx's Prescriptions: Continued amlodipine 10 mg tablet 10 mg PO BID Qty: 180 3RF digoxin 125 mcg (0.125 mg) tablet 125 mcg PO QAM Qty: 90 4RF esomeprazole magnesium 40 mg capsule,delayed release(DR/EC) 40 mg PO DAILY Qty: 90 3RF fluticasone propion-salmeterol [Advair Diskus] 250-50 mcg/dose blister with device 1 inh Inhalation BID Qty: 3 4RF furosemide 20 mg tablet See Rx Instructions .ROUTE .COMPLEX Qty: 135 4RF Dose Instruction: TAKE 1 TABLET (20MG) BY MOUTH EVERY OTHER DAY ALTERNATING WITH TAKING 2 T ABLETS (40MG) BY MOUTH EVERY OTHER DAY Rx Instructions: TAKE 1 TABLET (20MG) BY MOUTH EVERY OTHER DAY ALTERNATING WITH TAKING 2 TABLETS (40MG) BY MOUTH EVERY OTHER DAY montelukast 10 mg tablet 10 mg PO DAILY Qty: 90 3RF docusate sodium [Colace] 100 mg capsule 100 mg PO DAILY Qty: 90 4RF albuterol sulfate 90 mcg/actuation HFA aerosol inhaler 2 puff inhalation Q6H PRN (Reason: shortness of breath or wheezing) Qty: 8.5 12RF ipratropium-albuterol 0.5 mg-3 mg(2.5 mg base)/3 mL solution for nebulization 3 ml inhalation QID Qty: 180 0RF levalbuterol HCl 1.25 mg/3 mL solution for nebulization 1.25 mg inhalation Q4H PRN (Reason: shortness of breath or wheezing) Qty: 90 0RF acetaminophen 500 mg Tablet 1,000 mg PO PRN PRN ferrous sulfate 325 mg (65 mg iron) tablet,delayed release (DR/EC) 325 mg PO DAILY Patient Comments: TAKE 1 TABLET BY MOUTH ONCE DAILY guaifenesin [Mucinex] 600 mg tablet extended release 12hr 600 mg PO Q12H PRNQty: 10 0RF Discharge Instructions Additional Instructions: diet: The amount of fat eaten at one time also factors into the equation. Smaller amounts of fat are easier to digest. On the other hand, large amounts can remain undigested and cause gas, bloating and diarrhea. ? Eat smaller, more frequent meals. This may ensure a better mix with available bile. Include small amounts of lean protein, such as poultry, fish and nonfat dairy, at every meal, along with vegetables, fruit and whole grains. ? Go easy on fat. Avoid high-fat foods, fried and greasy foods, and fatty sauces and gravies. Instead, choose nonfat or low-fat foods. Read labels and look for foods with 3 grams of fat or less a serving. ?Foods to Avoid High-fat foods include: ? Foods that are fried, like Armenian fries and potato chips ? High-fat meats, such as pereyra, bologna, sausage, ground beef, and ribs, pork products ? High-fat dairy products, such as cheese, ice cream, cream, whole milk, and sour cream ? Pizza ? Foods made with lard or butter ? Creamy soups or sauces ? Meat gravies ? Chocolate ? Oils, such as palm and coconut oil ? Skin of chicken or turkey ?? Nuts and nut butters ?? Avocadoes -For for referral will be sent to surgery at [facility]. It has been taking at least 6 months to get into surgery clinic at [facility]. They should give you a call within the next 2 weeks. If you do not hear from them please let our offi ce know. [facility] [phone] Activity:: Activity as Tolerated Equipment/Supplies:: No Equipment Needed Diet:: see above DS: Summary Time Spent with Patient providing and/or coordinating discharge services: Less than 30 minutes Status at Discharge Functional status at discharge: independent ambulation Overall status at discharge: patient is back to baseline Mental Status: mental status grossly normal Speech and Movement: speech and movement normal Mood: congruent mood Affect: normal affect Quality:SDOH Health Related Social Needs: Health related social needs housing instability, house d, with risk of homelessness(Z59.811) Health related social needs details lives with son Exam Psych Mental Status: mental status grossly normal Speech and Movement: speech and movement normal Mood: congruent mood Affect: normal affect DS: Data Vitals/I&O Vitals and I&O: Vital Signs Temperature 36.7 C 08/10/24 15:04 Temperature Source Skin 08/10/24 15:04 Pulse 90 08/10/24 15:04 Pulse Rhythm Irregular 08/08/24 16:38 Pulse Strength Normal 08/08/24 13:29 Pulse 87 08/08/24 12:01 Respiratory Rate 18 08/10/24 15:04 Respiratory Effort Normal, Non-Labored 08/08/24 16:38 Respiratory Depth Normal 08/08/24 16:38 Respiratory Pattern Normal 08/08/24 16:38 Blood Pressure 112/56 L 08/10/24 15:04 Blood Pressure Mean 77 08/08/24 13:29 Pulse Oximetry 93 08/10/24 15:04 Oxygen Delivery Method Nasal Cannula 08/10/24 15:04 Oxygen Flow Rate 2 08/10/24 15:04 Pain Level 0 08/10/24 15:04 Comment RN Notified 08/09/24 19:17 Intake & Output 08/09/24 08/10/24 08/10/24 23:59 11:59 23:59 Intake Total 1220 / 1840 Output Total 250 / 600 200 / 200 Balance 970 / 1240 -190 / -190 Intake: IV Oral 1200 / 1800 Output: Urine 250 / 600 200 / 200 Other: Urine Color Yellow Yellow Pale Yellow Urine Appearance Cloudy Cloudy Clear Urine Odor Normal Normal None Comment small amount of urine mixed with liquid stool emptied from pt commode Stool Size Small Stool Characteristics Soft Formed Brown Data Completed and Pending Labs on day of discharge: Labs from last 24 hours 08/10/24 08/10/24 06:00 05:35 WBC 6.95 RBC 3.92 L Hgb 10.7 L Hct 36.2 MCV 92 MCH 27.3 MCHC 29.6 L RDW 16.7 H Plt Count 454 H MPV 9.3 PT 9.8 Cancelled INR 1.0 Cancelled VBG pH 7.35 VBG pCO2 63 H* VBG pO2 51 VBG HCO3 35 H VBG Total CO2 33 H VBG O2 Saturation 86 VBG Base Excess 9 H Sodium 138 Potassium 4.7 Chloride 99 Carbon Dioxide 33.9 H Anion Gap 5.1 BUN 11 Creatinine 0.8 Est GFR (CKD-EPI 2020) 77.27 Glucose 106 Calcium 9.2 Total Bilirubin 0.25 Conjugated Bilirubin 0.1 AST 91 H ALT 221 H Alkaline Phosphatase 249 H Total Protein 7.2 Albumin 3.0 L Hepatitis A IgM Ab Pending Hep Bs Antigen Pending Hep B Core Total Ab Pending Hepatitis C Antibody Pending PFSH All Active Problems Abdominal right upper quadrant tenderness (Acute) Cholelithiasis (Acute) Elevated LFTs (Acute) Acute respiratory failure with hypoxia and hypercapnia (Acute) Chronic respiratory failure (Acute) Goals of care, counseling/discussion (Acute) Right ventricular failure (Acute) Pulmonary infiltrates (Acute) Chronic hypoxic respiratory failure (Acute) Sacral decubitus ulcer (Acute) Uvular swelling (Acute) Chronic obstructive lung disease (Chronic) h/o tobacco use, quit 2008 CAP (community acquired pneumonia) (Acute) COPD exacerbation (Acute) Cervical arthritis with myelopathy (Acute) Arthritis (Acute 02/10/13) Osteoporosis (Acute 01/14/08) Tachycardia (Chronic) Medical History PAF (paroxysmal atrial fibrillation) History of GI diverticular bleed Emphysema lung Hypercapnic respiratory failure Pulmonary hypertension Anemia Heart failure with preserved ejection fraction (HFpEF, >= 50%) GERD (gastroesophageal reflux disease) GI bleed Bilateral lower extremity edema Acute respiratory failure with hypoxia COVID-[address] Tobacco dependence due to cigarettes Quit smoking when she was 59 years old COVID-19 -associated with COPD exacerbation Parotid mass Resolved after 3 months without intervention Acute on chronic respiratory failure with hypoxia and hypercapnia Hypomagnesemia Acute on chronic diastolic CHF (congestive heart failure) CAP (community acquired pneumonia) HTN (hypertension) GERD (gastroesophageal reflux disease) HTN (hypertension) Surgical History Endoscopic Carpal Tunnel release (03/31/13) Left 7.2.13 Family History Mother Essential hypertension Hyperlipidemia Adopted Dementia Father Heart disease Neoplasm LUNG Lung cancer Sister No problems noted. Sister No problems noted. Brother No problems noted. Brother No problems noted. Maternal Grandfather Stroke Paternal Grandfather Heart disease Maternal Grandmother Heart disease Paternal Grandmother Stroke Son Diabetes Essential hypertension Daughter No problems noted. Social History Smoking/Tobacco Use Status: Former Tobacco Use tobacco type: cigarettes Quit Date: 09/30/13 Tobacco: How many years used: 56 Quit status: quit date established Second Hand Exposure: Yes Smoking risk assessment performed?: Yes Alcohol Intake: never Drug use: Never Substance use type: does not use Counseling given: No Counseling provided: none Caregiver/Support person: No Household members: family Housing: house Communication Needs: None Do you need help understanding health information?: Never Pets and animals: Yes Pets and animals: dog(s) Sexually active: No Do you think of yourself as: straight/heterosexual Current gender identity: female What is your relationship status?: How often do you talk on the phone with friends or family?: three or more times per week How often do you get together with friends or relatives?: three or more times per week Do you belong to any clubs or organized social groups?: no Panel score (0-1 are the most socially isolated patients): 1 What type of physical activity do you participate in: none Special juan needs: No Seatbelt use: sometimes Helmet use: No Drive intox or ride w/intox catering driver: No Do you feel safe at home: Yes Do you feel safe in your relationship?: Yes Additional Social history: Lives with Son on [facility] Female Reproductive History Menstrual Menopause type: natural Time Spent with Patient Time Spent with Patient: <45 minutes Time was spent: preparing to see the patient(eg.review tests), obtaining and/or reviewing separately otained hiistory, ordering medications,tests, procedures, referring, communicating with other health child care supervisor, indepentently interpreting results, counseling the patient, care coordination and other
--- NOTE | 2024-08-10 16:01 | CMDISCH_ITS ---
Date of service: 08/10/24 Time of Service: 16:01 LACE Index Scoring Tool Questions: Length of Stay (in days): 2 Was the patient admitted via the E.D.?: Yes Comorbidities: Cerebrovascular Disease and Chronic Pulmonary Disease E.D. Visits: 5 Answers: Total Score: 12 Risk of Readmission: High Risk Care Management Discharge Plan Reason for Hospitalization: Abdominal RUQ tenderness Discharge Plan: Jackie returned home today with a resumption of HH RN, PT, MAINTENANCE TECHNICIAN. Her son will drive her home via private vehicle. She will follow up with her PCP and discharge plan of care. She is happy to be going home. Patient/Family Education Needs: Review discharge instructions and limitations, discussion of self care needs including ask me three. Services Needed at Discharge: Home Health Care Services (resume HH RN, PT, OT) SDOH Health Related Social Needs: Health related social needs inadequate housing(Z59.1) Health related social needs details lives with son Health related social needs: housing instability, housed, with risk of homelessness(Z59.811)
--- NOTE | 2024-08-10 16:07 | PDOC.HHF2F_ITS ---
Home Health Referral Home Health Orders Clinical synopsis of why skilled professionals are needed: Oxygen dependent COPD To set up meds and assess condition Make sure aHngman in working order Registered Nurse: Check all that apply Instruct on new or changed medication(s)/assess compliance: Ordered Assess for exacerbation of medical condition, instruct patient/caregivers on signs and symptoms to report for early detection: Ordered Other: hematochezia, pneumonia Physical Therapist: Check all that apply Increase strength & endurance for safe mobility at home: Ordered To design/establish home maintenance program: Ordered Fall reduction therapy program for patient with history of frequent falls: Ordered Home safety evaluation and teaching/gait training including stair management (if applicable): Ordered Better Breathing Program: Ordered Other: PT note: Activity tolerance improving. Patient now more able to appreciate being able to feel her symptoms in relation to desaturation so she is more keen about activity pacing/cessation to minimize SOB and fatigue. Plan: Regain PLOF of modified independent with use of FWW for indoor ambulation. Music Writer: Assist with community resources: Ordered Assist with remote computer terminal operator care planning: Ordered Home Bound Status Requires the aid of supportive device (check all that apply): Walker Patient has a condition such that leaving home is medically contraindicated (Describe): Patient requires oxygen Describe why leaving home would require a considerable and taxing effort: Requires frequent rest periods, Oxygen, Safety Concerns: describe and Requires alternative accommodations: Encounter Date and Reason: I certify that a FTF encounter for this patient was performed on August 10, 2024 and that such encounter was related to the primary reason the patient requires home health services. The encounter was conducted in the following manner: * By me as the certifying physician, COMPUTER PROGRAMMER ANALYST, PA or * By an inpatient physician, COMPUTER PROGRAMMER ANALYST or PA during an inpatient stay who communicated findings to me, Certification And Authentication I certify that I composed the above information based on my clinical judgment relating to this patient's medical condition and, if applicable, clinical findings communicated to me by the NPP or inpatient physician who performed the FTF encounter. Name of Provider that will be monitoring home health services: Deven Roberto
--- NOTE | 2024-08-10 16:10 | DSE_ITS ---
Date of service: 08/10/24 Time of Service: 16:11 DS: Diagnosis Discharge Diagnosis (1) Abdominal right upper quadrant tenderness: Status: Acute (2) Heart failure with preserved ejection fraction (HFpEF, >= 50%): (3) PAF (paroxysmal atrial fibrillation): (4) Chronic obstructive lung disease: Status: Chronic (5) Elevated LFTs: Status: Acute (6) Cholelithiasis: Status: Acute (7) CVA (cerebral vascular accident): Status: Resolved (8) Chronic hypoxic respiratory failure: Status: Acute (9) GERD (gastroesophageal reflux disease): (10) Pulmonary hypertension: (11) Anemia: Discharge Plan Disposition Patient Disposition: Home Condition: Good Discharge Details Reason For Visit: [place]/Chest Pain Admit Date/Time: 08/08/24 15:05 Admit Provider: Vinh Rojo Attending Provider: Vinh Rojo Primary Care Provider: Deven Collier Hospital Course Hospital Course: see addendum Home Meds and New Rx's Prescriptions: Continued amlodipine 10 mg tablet 10 mg PO BID Qty: 180 3RF digoxin 125 mcg (0.125 mg) tablet 125 mcg PO QAM Qty: 90 4RF esomeprazole magnesium 40 mg capsule,delayed release(DR/EC) 40 mg PO DAILY Qty: 90 3RF fluticasone propion-salmeterol [Advair Diskus] 250-50 mcg/dose blister with device 1 inh Inhalation BID Qty: 3 4RF furosemide 20 mg tablet See Rx Instructions .ROUTE .COMPLEX Qty: 135 4RF Dose Instruction: TAKE 1 TABLET (20MG) BY MOUTH EVERY OTHER DAY ALTERNATING WITH TAKING 2 T ABLETS (40MG) BY MOUTH EVERY OTHER DAY Rx Instructions: TAKE 1 TABLET (20MG) BY MOUTH EVERY OTHER DAY ALTERNATING WITH TAKING 2 TABLETS (40MG) BY MOUTH EVERY OTHER DAY montelukast 10 mg tablet 10 mg PO DAILY Qty: 90 3RF docusate sodium [Colace] 100 mg capsule 100 mg PO DAILY Qty: 90 4RF albuterol sulfate 90 mcg/actuation HFA aerosol inhaler 2 puff inhalation Q6H PRN (Reason: shortness of breath or wheezing) Qty: 8.5 12RF ipratropium-albuterol 0.5 mg-3 mg(2.5 mg base)/3 mL solution for nebulization 3 ml inhalation QID Qty: 180 0RF levalbuterol HCl 1.25 mg/3 mL solution for nebulization 1.25 mg inhalation Q4H PRN (Reason: shortness of breath or wheezing) Qty: 90 0RF acetaminophen 500 mg Tablet 1,000 mg PO PRN PRN ferrous sulfate 325 mg (65 mg iron) tablet,delayed release (DR/EC) 325 mg PO DAILY Patient Comments: TAKE 1 TABLET BY MOUTH ONCE DAILY guaifenesin [Mucinex] 600 mg tablet extended release 12hr 600 mg PO Q12H PRNQty: 10 0RF Discharge Instructions Additional Instructions: -Resume home health RN, PT, TALENT ACQUISITION CONSULTANT diet: The amount of fat eaten at one time also factors into the equation. Smaller amounts of fat are easier to digest. On the other hand, large amounts can remain undigested and cause gas, bloating and diarrhea. ? Eat smaller, more frequent meals. This may ensure a better mix with available bile. Include small amounts of lean protein, such as poultry, fish and nonfat dairy, at every meal, along with vegetables, fruit and whole grains. ? Go easy on fat. Avoid high-fat foods, fried and greasy foods, and fatty sauces and gravies. Instead, choose nonfat or low-fat foods. Read labels and look for foods with 3 grams of fat or less a serving. ?Foods to Avoid High-fat foods include: ? Foods that are fried, like Colombian fries and potato chips ? High-fat meats, such as pereyra, bologna, sausage, ground beef, and ribs, pork products ? High-fat dairy products, such as cheese, ice cream, cream, whole milk, and sour cream ? Pizza ? Foods made with lard or butter ? Creamy soups or sauces ? Meat gravies ? Chocolate ? Oils, such as palm and coconut oil ? Skin of chicken or turkey ?? Nuts and nut butters ?? Avocadoes -For for referral will be sent to surgery at [facility]. It has been taking at least 6 months to get into surgery clinic at [facility]. They should give you a call within the next 2 weeks. If you do not hear from them please let our office know. [facility] [phone] Activity:: Activity as Tolerated Equipment/Supplies:: No Equipment Needed Diet:: see above DS: Summary Time Spent with Patient providing and/or coordinating discharge services: Less than 30 minutes Status at Discharge Functional status at discharge: uses cane/walker Overall status at discharge: patient is back to baseline Mental Status: mental status grossly normal Speech and Movement: speech and movement normal Mood: congruent mood Affect: normal affect Quality:SDOH Health Related Social Needs: Health related social needs housing instability, house d, with risk of homelessness(Z59.811) Health related social needs details lives with son Exam Psych Mental Status: mental status grossly normal Speech and Movement: speech and movement normal Mood: congruent mood Affect: normal affect DS: Data Vitals/I&O Vitals and I&O: Vital Signs Temperature 36.7 C 08/10/24 15:04 Temperature Source Skin 08/10/24 15:04 Pulse 90 08/10/24 15:04 Pulse Rhythm Irregular 08/08/24 16:38 Pulse Strength Normal 08/08/24 13:29 Pulse 87 08/08/24 12:01 Respiratory Rate 18 08/10/24 15:04 Respiratory Effort Normal, Non-Labored 08/08/24 16:38 Respiratory Depth Normal 08/08/24 16:38 Respiratory Pattern Normal 08/08/24 16:38 Blood Pressure 112/56 L 08/10/24 15:04 Blood Pressure Mean 77 08/08/24 13:29 Pulse Oximetry 93 08/10/24 15:04 Oxygen Delivery Method Nasal Cannula 08/10/24 15:04 Oxygen Flow Rate 2 08/10/24 15:04 Pain Level 0 08/10/24 15:04 Comment RN Notified 08/09/24 19:17 Intake & Output 08/09/24 08/10/24 08/10/24 23:59 11:59 23:59 Intake Total 1220 / 1840 Output Total 250 / 600 200 / 200 Balance 970 / 1240 -190 / -190 Intake: IV Oral 1200 / 1800 Output: Urine 250 / 600 200 / 200 Other: Urine Color Yellow Yellow Pale Yellow Urine Appearance Cloudy Cloudy Clear Urine Odor Normal Normal None Comment small amount of urine mixed with liquid stool emptied from pt commode Stool Size Small Stool Characteristics Soft Formed Brown Data Completed and Pending Labs on day of discharge: Labs from last 24 hours 08/10/24 08/10/24 06:00 05:35 WBC 6.95 RBC 3.92 L Hgb 10.7 L Hct 36.2 MCV 92 MCH 27.3 MCHC 29.6 L RDW 16.7 H Plt Count 454 H MPV 9.3 PT 9.8 Cancelled INR 1.0 Cancelled VBG pH 7.35 VBG pCO2 63 H* VBG pO2 51 VBG HCO3 35 H VBG Total CO2 33 H VBG O2 Saturation 86 VBG Base Excess 9 H Sodium 138 Potassium 4.7 Chloride 99 Carbon Dioxide 33.9 H Anion Gap 5.1 BUN 11 Creatinine 0.8 Est GFR (CKD-EPI 2020) 77.27 Glucose 106 Calcium 9.2 Total Bilirubin 0.25 Conjugated Bilirubin 0.1 AST 91 H ALT 221 H Alkaline Phosphatase 249 H Total Protein 7.2 Albumin 3.0 L Hepatitis A IgM Ab Pending Hep Bs Antigen Pending Hep B Core Total Ab Pending Hepatitis C Antibody Pending PFSH All Active Problems Abdominal right upper quadrant tenderness (Acute) Cholelithiasis (Acute) Elevated LFTs (Acute) Acute respiratory failure with hypoxia and hypercapnia (Acute) Chronic respiratory failure (Acute) Goals of care, counseling/discussion (Acute) Right ventricular failure (Acute) Pulmonary infiltrates (Acute) Chronic hypoxic respiratory failure (Acute) Sacral decubitus ulcer (Acute) Uvular swelling (Acute) Chronic obstructive lung disease (Chronic) h/o tobacco use, quit 2008 CAP (community acquired pneumonia) (Acute) COPD exacerbation (Acute) Cervical arthritis with myelopathy (Acute) Arthritis (Acute 02/10/13) Osteoporosis (Acute 01/14/08) Tachycardia (Chronic) Medical History PAF (paroxysmal atrial fibrillation) History of GI diverticular bleed Emphysema lung Hypercapnic respiratory failure Pulmonary hypertension Anemia Heart failure with preserved ejection fraction (HFpEF, >= 50%) GERD (gastroesophageal reflux disease) GI bleed Bilateral lower extremity edema Acute respiratory failure with hypoxia COVID-[address] Tobacco dependence due to cigarettes Quit smoking when she was 59 years old COVID-19 -associated with COPD exacerbation Parotid mass Resolved after 3 months without intervention Acute on chronic respiratory failure with hypoxia and hypercapnia Hypomagnesemia Acute on chronic diastolic CHF (congestive heart failure) CAP (community acquired pneumonia) HTN (hypertension) GERD (gastroesophageal reflux disease) HTN (hypertension) Surgical History Endoscopic Carpal Tunnel release (03/31/13) Left 7.2.13 Family History Mother Essential hypertension Hyperlipidemia Adopted Dementia Father Heart disease Neoplasm LUNG Lung cancer Sister No problems noted. Sister No problems noted. Brother No problems noted. Brother No problems noted. Maternal Grandfather Stroke Paternal Grandfather Heart disease Maternal Grandmother Heart disease Paternal Grandmother Stroke Son Diabetes Essential hypertension Daughter No problems noted. Social History Smoking/Tobacco Use Status: Former Tobacco Use tobacco type: cigarettes Quit Date: 09/30/13 Tobacco: How many years used: 56 Quit status: quit date established Second Hand Exposure: Yes Smoking risk assessment performed?: Yes Alcohol Intake: never Drug use: Never Substance use type: does not use Counseling given: No Counseling provided: none Caregiver/Support person: No Household members: family Housing: house Communication Needs: None Do you need help understanding health information?: Never Pets and animals: Yes Pets and animals: dog(s) Sexually active: No Do you think of yourself as: straight/heterosexual Current gender identity: female What is your relationship status?: How often do you talk on the phone with friends or family?: three or more times per week How often do you get together with friends or relatives?: three or more times per week Do you belong to any clubs or organized social groups?: no Panel score (0-1 are the most socially isolated patients): 1 What type of physical activity do you participate in: none Special juan needs: No Seatbelt use: sometimes Helmet use: No Drive intox or ride w/intox funeral car driver: No Do you feel safe at home: Yes Do you feel safe in your relationship?: Yes Additional Social history: Lives with Son on [facility] Female Reproductive History Menstrual Menopause type: natural Time Spent with Patient Time Spent with Patient: <45 minutes Time was spent: preparing to see the patient(eg.review tests), obtaining and/or reviewing separately otained hiistory, ordering medications,tests, procedures, referring, communicating with other health mall plant caretaker, indepentently interpreting results, counseling the patient, care coordination and other
[2024-08-10 20:14] LABS: Hepatitis A Antibody IgM Negative (Negative); Hepatitis B Core Antibody Negative (Negative); Hepatitis B surface Ag Negative (Negative); Hepatitis C Ab w Rflx HCV PCR Negative (Negative)
--- NOTE | 2024-08-13 12:24 | NUR.NOTE ---
Patient called inquiring about her advanced directive that was brought in by [facility]. I checked her chart to be sure that it was scanned in to the chart and it is. I do remember it being here that day but do not remember if it went up on admission. Call sent to Nursing Note:
== END 2024-08-10 17:35 | disposition home or self-care (01) ==
LOC: ER 15:35 → MS 16:17
PROVIDERS: Family Medicine; Admitting Provider Surgery; Emergency Provider Emergency Medicine; PCP Nurse Practitioner Family; Visit Provider Surgery
DX: K80.20 Calculus of gallbladder without cholecystitis without obstruction (principal); R10.11 Right upper quadrant pain; I48.0 Paroxysmal atrial fibrillation; J43.9 Emphysema, unspecified; R74.01 Elevation of levels of liver transaminase levels; J96.11 Chronic respiratory failure with hypoxia; K21.9 Gastro-esophageal reflux disease without esophagitis; I27.20 Pulmonary hypertension, unspecified; D50.0 Iron deficiency anemia secondary to blood loss (chronic); Z99.81 Dependence on supplemental oxygen; I11.0 Hypertensive heart disease with heart failure; R91.1 Solitary pulmonary nodule; I50.32 Chronic diastolic (congestive) heart failure; Z86.73 Personal history of transient ischemic attack (TIA), and cerebral infarction without residual deficits
CPT/HCPCS: 00123; 36415; 76705; 80048; 80053; 80076; 82805; 83690; 85027; 86704; 86709; 86803; 87340; 93005; 93308; 94640; 96372; 99223; 99233; 99239; 71045; 74177; 76700; 80162; 81003; 83735; 83880; 84484; 85025; 85610; 93010; 94664; 94760; 99222; 99232; G0378; J1644; J2270; J3490; J7620

== ENCOUNTER 2024-10-06 03:19 | Outpatient (CLI) | payer MEDICARE, SELFPAY ==
[2024-10-06 13:04] LABS: ALT 20 U/L (14-59); AST 20 U/L (15-37); Albumin 3.9 g/dL (3.4-5.0); Alkaline Phosphatase 118 U/L (46-116); Anion Gap 4.8 mmol/L (3-11); BUN 16 mg/dL (7-18); Bilirubin, Total 0.22 mg/dL (0.2-1.0); CO2 33.2 mmol/L (21.0-32.0); CREATININE 0.9 mg/dL (0.55-1.02); Calcium 9.8 mg/dL (8.5-10.1); Chloride 98 mmol/L (98-107); Estimated GFR 67.08 (mL/min/1.73m2); Glucose 103 mg/dL (74-106); Potassium 4.8 mmol/L (3.5-5.1); Sodium 136 mmol/L (136-145); Total Protein 8.2 g/dL (6.4-8.2)
== END 2024-10-06 03:20 | disposition home or self-care (01) ==
LOC: LOS 03:19
PROVIDERS: PCP Nurse Practitioner Family; Visit Provider Nurse Practitioner Family
DX: R79.89 Other specified abnormal findings of blood chemistry (principal)
CPT/HCPCS: 36415; 80053

== ENCOUNTER 2024-11-16 12:39 | Emergency (ER) | payer MEDICARE, SELFPAY ==
[2024-11-16] VITALS (27 sets, daily range): BP systolic 114–159; BP diastolic 46–90; PULSE 79–128; RESP 17–31; TEMP 36.5; O2SAT 85–99
--- NOTE | 2024-11-16 12:30 | RT.EKG_ITS ---
APPROVED REPORT Exam: Resting ECG Reason for Exam: afib Patient Location: E HR:123 bpm ECG Measurements Heart Rate 123 AXIS CO [id number] P [id number] QRSd 76 QRS 98 QT 298 T -87 QTc 426 Conclusion Atrial fibrillation 123 no stemi
--- NOTE | 2024-11-16 13:30 | DI.RAD_ITS ---
Exam(s) XR PORTABLE CHEST AP EXAM: XR PORTABLE CHEST AP CLINICAL HISTORY: sob. TECHNIQUE: 2D digital imaging was performed. COMPARISON: CR,XR XR PORTABLE CHEST AP from 08/08/2024 FINDINGS: Single AP portable view. Heart size is upper normal. The mediastinum is not widened. Some right upper lobe scarring is again noted, unchanged. No new infiltrates nor pleural effusions. No pulmonary edema. IMPRESSION: No acute pulmonary findings on this single AP portable view of the chest. Right upper lobe scarring again noted. DATA REPOSITORY: RADIATION DOSE DELIVERED:
[2024-11-16 13:42] LABS: BE (Venous) 4 mmol/L (-2-3); HCO3 (Venous) 30 mmol/L (23-28); O2 Sat (Venous) 61 %; TCO2 (Venous) 28 mmol/L (24-29); pO2 (Venous) 36 mmHg
[2024-11-16 13:43] LABS: Abs Immature Grans 0.06 10^3/uL (0.0-0.06); Absolute Eosinophil Count 0.18 10^3/uL (0.0-0.7); Absolute Monocyte Count 1.04 10^3/uL (0.1-0.8); Absolute Neutrophil Count 9.02 10^3/uL (1.2-6.7); Basophils % 0.5 %; Eosinophils % 1.6 %; HGB 12.5 g/dL (11.2-15.7); Immature Grans % 0.5 %; Lymphocytes % 6.3 %; MCH 29.1 pg (27.0-33.0); MCHC 31.3 % (32.0-36.0); MCV 93 fL (80-95); MPV 9.8 fL (8.0-11.0); Monocytes % 9.4 %; Neutrophils % 81.7 %; Platelet Count 352 10^3/uL (130-400); RBC 4.29 10^6/uL (3.93-5.22); RDW-SD 47.6 fL; WBC 11.04 10^3/uL (4.4-10.8)
[2024-11-16 13:46] LABS: Absolute Basophil Count 0.06 10^3/uL (0.0-0.2); pCO2 (Venous) 62 mmHg (41-51)
[2024-11-16] MEDS: Albuterol/Ipratropium 3 ML UPD VIAL UPD (13:57)
[2024-11-16 14:03] LABS: ALT 27 U/L (14-59); AST 16 U/L (15-37); Albumin 3.7 g/dL (3.4-5.0); Alkaline Phosphatase 159 U/L (46-116); Anion Gap 6.8 mmol/L (3-11); BUN 12 mg/dL (7-18); Bilirubin, Total 0.32 mg/dL (0.2-1.0); CO2 32.2 mmol/L (21.0-32.0); Calcium 9.5 mg/dL (8.5-10.1); Chloride 98 mmol/L (98-107); Digoxin 0.96 ng/mL (0.90-2.00); Estimated GFR 58.75 (mL/min/1.73m2); Glucose 114 mg/dL (74-106); Magnesium 1.7 mg/dL (1.8-2.4); Potassium 4.3 mmol/L (3.5-5.1); Sodium 137 mmol/L (136-145); Total Protein 8.6 g/dL (6.4-8.2); Troponin I 10 ng/L (<or=51)
[2024-11-16 14:06] LABS: COVID-19 PCR Negative (Negative); Influenza A PCR Negative (Negative); Influenza B PCR Negative (Negative); RSV PCR Negative (Negative)
[2024-11-16 14:08] LABS: Source Nasopharynx
[2024-11-16] MEDS: MAGNESIUM SULFATE 2 GM/50 ML BAG IVINF (14:52)
[2024-11-16 15:15] LABS: Troponin I 11 ng/L (<or=51)
[2024-11-16] MEDS: methylPREDNISolone SUCC 125 MG VIAL IVP (15:30)
[2024-11-16] MEDS: Amoxicillin 875/Clav. 125 TAB PO (15:30)
[2024-11-16] MEDS: Amox. 875/Clav. 125, 2 TABS/BTL 2 TAB PO (15:40)
--- NOTE | 2024-11-16 16:40 | ED.GENADUL_ITS ---
Discharge Plan Disposition Patient Disposition: Home Condition: Stable Discharge Details Clinical Impression: COPD with acute exacerbation Primary Care Provider: Deven Collier ED Provider: Tanika Jacob Home Meds and New Rx's Prescriptions: New amoxicillin-pot clavulanate 875-125 mg tablet 1 tab PO BID 7 Days Qty: 14 0RF benzonatate 100 mg capsule 100 mg PO TID PRN (Reason: cough) Qty: 30 0RF prednisone 20 mg tablet 40 mg PO DAILY 4 Days Qty: 8 0RF No Action amlodipine 10 mg tablet 10 mg PO BID Qty: 180 3RF digoxin 125 mcg (0.125 mg) tablet 125 mcg PO QAM Qty: 90 4RF esomeprazole magnesium 40 mg capsule,delayed release(DR/EC) 40 mg PO DAILY Qty: 90 3RF fluticasone propion-salmeterol [Advair Diskus] 250-50 mcg/dose blister with device 1 inh Inhalation BID Qty: 3 4RF furosemide 20 mg tablet See Rx Instructions .ROUTE .COMPLEX Qty: 135 4RF Dose Instruction: TAKE 1 TABLET (20MG) BY MOUTH EVERY OTHER DAY ALTERNATING WITH TAKING 2 TABLETS (40MG) BY MOUTH EVERY OTHER DAY Rx Instructions: TAKE 1 TABLET (20MG) BY MOUTH EVERY OTHER DAY ALTERNATING WITH TAKING 2 TABLETS (40MG) BY MOUTH EVERY OTHER DAY montelukast 10 mg tablet 10 mg PO DAILY Qty: 90 3RF docusate sodium [Colace] 100 mg capsule 100 mg PO DAILY Qty: 90 4RF albuterol sulfate 90 mcg/actuation HFA aerosol inhaler 2 puff inhalation Q6H PRN (Reason: shortness of breath or wheezing) Qty: 8.5 12RF ipratropium-albuterol 0.5 mg-3 mg(2.5 mg base)/3 mL solution for nebulization 3 ml inhalation QID Qty: 180 0RF levalbuterol HCl 1.25 mg/3 mL solution for nebulization 1.25 mg inhalation Q4H PRN (Reason: shortness of breath or wheezing) Qty: 90 0RF doxycycline hyclate 100 mg capsule 100 mg PO BID Qty: 10 0RF ferrous sulfate 325 mg (65 mg iron) tablet,delayed release (DR/EC) 325 mg PO DAILY Patient Comments: TAKE 1 TABLET BY MOUTH ONCE DAILY guaifenesin [Mucinex] 600 mg tablet extended release 12hr 600 mg PO Q12H PRNQty: 10 0RF Discharge Instructions Instructions: COPD Exacerbation, Adult ED Additional Instructions: Viral viral testing today is negative Chest x-ray does not show a large pneumonia Will treat this as a COPD exacerbation with steroids and antibiotic coverage for atypical infections. Since she just completed a dose of doxycycline, will switch to Augmentin. First dose given in the emergency department and the remainder of the doses were sent to the pharmacy in addition to your steroids. Discharge Data Discharge Date/Time-TO BE ENTERED AT DEPARTURE: 11/16/24 15:42 HPI General Date/Time Provider Initiated Documentation: 11/16/24 13:16 . Limitations to Documentation: no limitations . Information obtained by: patient . HPI Narrative: 74-year-old female with past medical history of COPD, tobacco abuse, oxygen dependence presents for evaluation of cough. She reports cough has been productive of thick mucus. Denies any fever or chills. She normally wears 3 L nasal cannula, but has been increasing it to 4 L. She has had symptoms now for over a week and did take a course of 5 days of doxycycline at home without significant improvement. She did not take any steroids at home. She has been using her albuterol with improvement. She reports that today her doctor contacted her because her heart rate was elevated on telemetry monitoring. The patient denies any chest pain or knowledge of palpitations. She has been compliant with all of her medications today. Related Data Home Medications ?Medication ?Instructions ?Recorded ?Confirmed amlodipine 10 mg tablet 10 mg PO BID #180 tabs 06/08/24 11/16/24 digoxin 125 mcg (0.125 mg) tablet 125 mcg PO QAM #90 tabs 06/08/24 11/16/24 esomeprazole magnesium 40 mg 40 mg PO DAILY #90 caps 06/08/24 11/16/24 capsule,delayed release fluticasone 250 mcg-salmeterol 50 1 inh inhalation BID #3 ea 06/08/24 11/16/24 mcg/dose blistr powdr for inhalation (Advair Diskus) furosemide 20 mg tablet See Rx Instructions .Route 06/08/24 11/16/24 .COMPLEX #135 tabs montelukast 10 mg tablet 10 mg PO DAILY #90 tab-caps 06/08/24 11/16/24 guaifenesin 600 mg tablet, 600 mg PO Q12H PRN #10 tabs 06/22/24 11/16/24 extended release 12 hr (Mucinex) albuterol sulfate 90 mcg/actuation 2 puff inhalation Q6H PRN 07/22/24 11/16/24 aerosol inhaler shortness of breath or wheezing #8.5 grams docusate sodium 100 mg capsule 100 mg PO DAILY #90 caps 07/22/24 11/16/24 (Colace) ipratropium 0.5 mg-albuterol 3 mg 3 ml inhalation QID #180 mL 07/23/24 11/16/24 (2.5 mg base)/3 mL nebulization soln levalbuterol HCl 1.25 mg/3 mL 1.25 mg (3 mL) inhalation Q4H PRN 07/28/24 11/16/24 solution for nebulization shortness of breath or wheezing #90 mL ferrous sulfate 325 mg (65 mg 325 mg PO DAILY 08/08/24 11/16/24 iron) tablet,delayed release doxycycline hyclate 100 mg capsule 100 mg PO BID #10 caps 11/09/24 11/16/24 amoxicillin 875 mg-potassium 1 tab PO BID 7 days #14 tabs 11/16/24 clavulanate 125 mg tablet benzonatate 100 mg capsule 100 mg PO TID PRN cough #30 caps 11/16/24 prednisone 20 mg tablet 40 mg (2 x 20 mg) PO DAILY 4 days 11/16/24 #8 tabs Previous Rx's ?Medication ?Instructions ?Recorded amlodipine 10 mg tablet 10 mg PO BID #180 tabs 06/08/24 digoxin 125 mcg (0.125 mg) tablet 125 mcg PO QAM #90 tabs 06/08/24 esomeprazole magnesium 40 mg 40 mg PO DAILY #90 caps 06/08/24 capsule,delayed release fluticasone 250 mcg-salmeterol 50 1 inh inhalation BID #3 ea 06/08/24 mcg/dose blistr powdr for inhalation (Advair Diskus) furosemide 20 mg tablet See Rx Instructions .Route 06/08/24 .COMPLEX #135 tabs montelukast 10 mg tablet 10 mg PO DAILY #90 tab-caps 06/08/24 guaifenesin 600 mg tablet, 600 mg PO Q12H PRN #10 tabs 06/22/24 extended release 12 hr (Mucinex) albuterol sulfate 90 mcg/actuation 2 puff inhalation Q6H PRN 07/22/24 aerosol inhaler shortness of breath or wheezing #8.5 grams docusate sodium 100 mg capsule 100 mg PO DAILY #90 caps 07/22/24 (Colace) ipratropium 0.5 mg-albuterol 3 mg 3 ml inhalation QID #180 mL 07/23/24 (2.5 mg base)/3 mL nebulization soln levalbuterol HCl 1.25 mg/3 mL 1.25 mg (3 mL) inhalation Q4H PRN 07/28/24 solution for nebulization shortness of breath or wheezing #90 mL doxycycline hyclate 100 mg capsule 100 mg PO BID #10 caps 11/09/24 amoxicillin 875 mg-potassium 1 tab PO BID 7 days #14 tabs 11/16/24 clavulanate 125 mg tablet benzonatate 100 mg capsule 100 mg PO TID PRN cough #30 caps 11/16/24 prednisone 20 mg tablet 40 mg (2 x 20 mg) PO DAILY 4 days 11/16/24 #8 tabs Allergies Allergy/AdvReac Type Severity Reaction Status Date / Time lorazepam (From Ativan) Allergy Severe Anaphylaxis Verified 11/16/24 13:01 diltiazem Allergy Intermediate LE and Verified 11/16/24 13:01 Facial Edema hydrochlorothiazide Allergy Mild rash Verified 11/16/24 13:01 Sulfa (Sulfonamide Allergy Unknown Other (See Verified 11/16/24 13:01 Antibiotics) Comment) umeclidinium (From Incruse AdvReac Severe Anaphylaxis Verified 11/16/24 13:01 Ellipta) metoprolol AdvReac Intermediate Fluid Verified 11/16/24 13:01 Retention lisinopril AdvReac Mild did not Verified 11/16/24 13:01 feel well General Stated Complaint: Arrhythmia KAYCE: 3 Exam Narrative Exam Narrative: Review of Systems: All systems reviewed & are unremarkable except as noted in HPI and below Well-developed, no acute distress NCAT PERRL, normal conjunctiva Mild tachycardia Mild increased respiratory effort with diminished breath sounds, wheezing bilaterally oxygen saturation normal on home O2 settings Nondistended abdomen Extremities w/o edema Course Vital Signs Vital signs: Vital Signs Temperature 36.5 C 11/16/24 12:58 Pulse 104 H 11/16/24 12:58 Respiratory Rate 22 11/16/24 12:58 Blood Pressure 148/71 H 11/16/24 12:58 Pulse Oximetry 85 L 11/16/24 12:58 Temperature 36.5 C 11/16/24 12:58 Temperature Source Oral 11/16/24 12:58 Pulse 117 H 11/16/24 15:30 Pulse 110 H 11/16/24 15:31 Respiratory Rate 17 11/16/24 15:31 Respiratory Effort Short of Breath 11/16/24 14:07 Respiratory Depth Normal 11/16/24 14:07 Respiratory Pattern Tachypnea 11/16/24 14:07 Blood Pressure 124/58 L 11/16/24 15:30 Blood Pressure Mean 73 11/16/24 15:30 Blood Pressure Position Sitting 11/16/24 12:58 Pulse Oximetry 92 11/16/24 15:30 Oxygen Delivery Method Nasal Cannula 11/16/24 14:07 Pain Level 0 11/16/24 12:58 Lab/Test Results Lab/Test Results: Laboratory Tests Range/Units 11/16/24 11/16/24 11/16/24 13:20 13:29 13:36 WBC (4.4-10.8) 10^3/uL 11.04 H RBC (3.93-5.22) 10^6/uL 4.29 Hgb (11.2-15.7) g/dL 12.5 Hct (36.0-46.0) % 40.0 MCV (80-95) fL 93 MCH (27.0-33.0) pg 29.1 MCHC (32.0-36.0) % 31.3 L RDW (11.7-14.6) % 14.0 Plt Count (130-400) 10^3/uL 352 MPV (8.0-11.0) fL 9.8 Immature Gran % % 0.5 Neutrophils % % 81.7 Lymphocytes % % 6.3 Monocytes % % 9.4 Eosinophils % % 1.6 Basophils % % 0.5 Nucleated RBC % (0.0-0.3) % 0.0 Absolute Neutrophils (1.2-6.7) 10^3/uL 9.02 H Absolute Lymphocytes (1.2-3.4) 10^3/uL 0.70 L Absolute Monocytes (0.1-0.8) 10^3/uL 1.04 H Absolute Eosinophils (0.0-0.7) 10^3/uL 0.18 Absolute Basophils (0.0-0.2) 10^3/uL 0.06 VBG pH (7.31-7.41) 7.30 L VBG pCO2 (41-51) mmHg 62 H* VBG pO2 mmHg 36 VBG HCO3 (23-28) mmol/L 30 H VBG Total CO2 (24-29) mmol/L 28 VBG O2 Saturation % 61 VBG Base Excess (-2-3) mmol/L 4 H Sodium (136-145) mmol/L 137 Potassium (3.5-5.1) mmol/L 4.3 Chloride (98-107) mmol/L 98 Carbon Dioxide (21.0-32.0) mmol/L 32.2 H Anion Gap (3-11) mmol/L 6.8 BUN (7-18) mg/dL 12 Creatinine (0.55-1.02) mg/dL 1.0 Est GFR (CKD-EPI 2020) (mL/min/1.73m2) 58.75 Glucose (74-106) mg/dL 114 H Calcium (8.5-10.1) mg/dL 9.5 Magnesium (1.8-2.4) mg/dL 1.7 L Total Bilirubin (0.2-1.0) mg/dL 0.32 AST (15-37) U/L 16 ALT (14-59) U/L 27 Alkaline Phosphatase (46-116) U/L 159 H Troponin I (<or=51) ng/L 10 Total Protein (6.4-8.2) g/dL 8.6 H Albumin (3.4-5.0) g/dL 3.7 Digoxin (0.90-2.00) ng/mL 0.96 COVID-19 Source Nasopharynx Cancelled SARS-CoV-2 (PCR) (Negative) Negative Cancelled Influenza Type A (PCR) (Negative) Negative Cancelled Influenza Type B (PCR) (Negative) Negative Cancelled RSV (PCR) (Negative) Negative Cancelled Range/Units 11/16/24 11/16/24 14:30 16:36 WBC (4.4-10.8) 10^3/uL RBC (3.93-5.22) 10^6/uL Hgb (11.2-15.7) g/dL Hct (36.0-46.0) % MCV (80-95) fL MCH (27.0-33.0) pg MCHC (32.0-36.0) % RDW (11.7-14.6) % Plt Count (130-400) 10^3/uL MPV (8.0-11.0) fL Immature Gran % % Neutrophils % % Lymphocytes % % Monocytes % % Eosinophils % % Basophils % % Nucleated RBC % (0.0-0.3) % Absolute Neutrophils (1.2-6.7) 10^3/uL Absolute Lymphocytes (1.2-3.4) 10^3/uL Absolute Monocytes (0.1-0.8) 10^3/uL Absolute Eosinophils (0.0-0.7) 10^3/uL Absolute Basophils (0.0-0.2) 10^3/uL VBG pH (7.31-7.41) VBG pCO2 (41-51) mmHg VBG pO2 mmHg VBG HCO3 (23-28) mmol/L VBG Total CO2 (24-29) mmol/L VBG O2 Saturation % VBG Base Excess (-2-3) mmol/L Sodium (136-145) mmol/L Potassium (3.5-5.1) mmol/L Chloride (98-107) mmol/L Carbon Dioxide (21.0-32.0) mmol/L Anion Gap (3-11) mmol/L BUN (7-18) mg/dL Creatinine (0.55-1.02) mg/dL Est GFR (CKD-EPI 2020) (mL/min/1.73m2) Glucose (74-106) mg/dL Calcium (8.5-10.1) mg/dL Magnesium (1.8-2.4) mg/dL Total Bilirubin (0.2-1.0) mg/dL AST (15-37) U/L ALT (14-59) U/L Alkaline Phosphatase (46-116) U/L Troponin I (<or=51) ng/L 11 Cancelled Total Protein (6.4-8.2) g/dL Albumin (3.4-5.0) g/dL Digoxin (0.90-2.00) ng/mL COVID-19 Source SARS-CoV-2 (PCR) (Negative) Influenza Type A (PCR) (Negative) Influenza Type B (PCR) (Negative) RSV (PCR) (Negative) Medical Decision Making Emergent evaluation of shortness of breath. Patient has known COPD and oxygen dependence. She is still smoking. She arrives with a slightly low O2 sat, but normalized when she was in the room on her 3 L nasal cannula. Her mild tachycardia secondary to A-fib with some RVR improved without intervention. Likely worsened by her respiratory dysfunction for the last few days. Bronchodilator and steroid were given. After breathing treatment her air movement improved significantly. Her VBG indicated CO2 retention at 62, which is about the patient's baseline, no significant concern for respiratory failure. Magnesium level was slightly low and given the setting of her respiratory distress, IV magnesium was given. Her viral testing was negative today. Her chest x-ray did not reveal any acute abnormality or focal consolidation. However given her medical comorbidities will discharge with antibiotics. Given that she recently did a course of doxycycline, will use Augmentin. Steroids sent to the pharmacy as well. Patient is stable on her home settings I do not feel hospitalization is indicated at this time. Return precautions advised. Follow-up closely with PCP Quality:SDOH Health Related Social Needs: Health related social needs details lives with son ASHLEE All Active Problems (Updated 11/16/24 @ 15:22 by Tanika Jacob MD) COPD with acute exacerbation (Acute) Cholelithiasis (Acute) Elevated LFTs (Acute) Chronic respiratory failure (Acute) Goals of care, counseling/discussion (Acute) Right ventricular failure (Acute) Pulmonary infiltrates (Acute) Chronic hypoxic respiratory failure (Acute) Sacral decubitus ulcer (Acute) Uvular swelling (Acute) Chronic obstructive lung disease (Chronic) h/o tobacco use, quit 2008 CAP (community acquired pneumonia) (Acute) COPD exacerbation (Acute) Cervical arthritis with myelopathy (Acute) Arthritis (Acute 02/10/13) Osteoporosis (Acute 01/14/08) Tachycardia (Chronic) Medical History PAF (paroxysmal atrial fibrillation) History of GI diverticular bleed Emphysema lung Hypercapnic respiratory failure Pulmonary hypertension Anemia Heart failure with preserved ejection fraction (HFpEF, >= 50%) GERD (gastroesophageal reflux disease) GI bleed Bilateral lower extremity edema Acute respiratory failure with hypoxia COVID-[address] Tobacco dependence due to cigarettes Quit smoking when she was 59 years old COVID-19 -associated with COPD exacerbation Parotid mass Resolved after 3 months without intervention Acute on chronic respiratory failure with hypoxia and hypercapnia Hypomagnesemia Acute on chronic diastolic CHF (congestive heart failure) CAP (community acquired pneumonia) HTN (hypertension) GERD (gastroesophageal reflux disease) HTN (hypertension) Surgical History Endoscopic Carpal Tunnel release (03/31/13) Left 7.2.13 Family History Mother Essential hypertension Hyperlipidemia Adopted Dementia Father Heart disease Neoplasm LUNG Lung cancer Sister No problems noted. Sister No problems noted. Brother No problems noted. Brother No problems noted. Maternal Grandfather Stroke Paternal Grandfather Heart disease Maternal Grandmother Heart disease Paternal Grandmother Stroke Son Diabetes Essential hypertension Daughter No problems noted. Social History Smoking/Tobacco Use Status: Former Tobacco Use tobacco type: cigarettes Quit Date: 09/30/13 Tobacco: How many years used: 56 Quit status: quit date established Second Hand Exposure: Yes Smoking risk assessment performed?: Yes Alcohol Intake: never Drug use: Never Substance use type: does not use Counseling given: No Counseling provided: none Caregiver/Support person: No Household members: family Housing: house Communication Needs: None Do you need help understanding health information?: Never Pets and animals: Yes Pets and animals: dog(s) Sexually active: No Do you think of yourself as: straight/heterosexual Current gender identity: female What is your relationship status?: How often do you talk on the phone with friends or family?: three or more times per week How often do you get together with friends or relatives?: three or more times per week Do you belong to any clubs or organized social groups?: no Panel score (0-1 are the most socially isolated patients): 1 What type of physical activity do you participate in: none Special juan needs: No Seatbelt use: sometimes Helmet use: No 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
== END 2024-11-16 15:42 | disposition home or self-care (01) ==
PROVIDERS: Emergency Provider Emergency Medicine; PCP Nurse Practitioner Family
DX: J44.1 Chronic obstructive pulmonary disease with (acute) exacerbation (principal); I10 Essential (primary) hypertension; F17.210 Nicotine dependence, cigarettes, uncomplicated
CPT/HCPCS: 80053; 82805; 87637; 93005; 94640; 96365; 96375; 99284; 71045; 80162; 83735; 84484; 85025; 93010; J2919; J3475; J7620

== ENCOUNTER 2025-02-22 13:04 | Emergency (ER) | payer MEDICARE, SELFPAY ==
[2025-02-22] VITALS (22 sets, daily range): BP systolic 134–146; BP diastolic 60–93; PULSE 77–125; RESP 14; TEMP 37; O2SAT 91–97
--- NOTE | 2025-02-22 14:00 | DI.CT_ITS ---
Exam(s) CT ABDOMEN PELVIS W EXAM: CT ABDOMEN PELVIS W CLINICAL HISTORY: abdominal pain, inability to tolerate food. TECHNIQUE: Imaging Protocol: Axial computed tomography images with coronal and sagittal reformatted images were created and reviewed CONTRAST MATERIAL: Intravenous: Omnipaque 350 Contrast volume:75 ml Oral: no COMPARISON: CT CT ABDOMEN PELVIS WO from 12/31/[address] ABDOMEN PELVIS W from 08/08/2024 FINDINGS: ABDOMEN and PELVIS: Lung Bases: No acute findings. Mild emphysematous changes. Liver: Normal density. No suspicious mass. Gallbladder and biliary tract: Cholecystectomy. Stable mild biliary dilation. Pancreas: Normal density. No abnormal calcifications or inflammatory process. No evidence of mass. Spleen: Normal. Kidneys: Normal size, contour and axis. No radiodense stones. No obstructive uropathy. No suspicious masses seen. Adrenal glands: No masses seen. Vasculature: Abdominal aorta non-dilated. Atherosclerotic changes. Soft tissues: Unremarkable. Bladder: Nearly empty. No gross wall thickening. No calculi.No focal mass. Bowel: No obstruction. No bowel wall thickening. Appendix normal. Diverticulosis. No evidence of diverticulitis. Peritoneal cavity: No ascites. No focal collection. No mesenteric inflammatory response. No free air . Bones: Degenerative changes in the spine and right hip. Levoscoliosis. Reproductive organs: Right ovarian cyst, similar to prior exams. Lymph nodes: No pathologically enlarged lymph nodes. IMPRESSION:: No acute abnormality in the abdomen or pelvis. The preliminary [facility] report was reviewed. RADIATION DOSE DELIVERED: Total DLP DATA REPOSITORY: All CT scans at this facility are submitted to the National Radiology Data Registry (NRDR) Dose Index Registry (DIR) with the [employer] (A[employer]). RADIATION OPTIMIZATION: All CT scans at this facility use at least one of these dose optimization te chniques: automated exposure control; mA and/or kV adjustment per patient size (includes targeted exa ms where dose is matched to clinical indication); or iterative reconstruction.
[2025-02-22 14:13] LABS: Abs Immature Grans 0.05 10^3/uL (0.0-0.06); Absolute Basophil Count 0.06 10^3/uL (0.0-0.2); Absolute Eosinophil Count 0.35 10^3/uL (0.0-0.7); Absolute Lymphocyte Count 0.87 10^3/uL (1.2-3.4); Absolute Monocyte Count 1.24 10^3/uL (0.1-0.8); Basophils % 0.5 %; Eosinophils % 3.1 %; HCT 39.8 % (36.0-46.0); HGB 12.8 g/dL (11.2-15.7); Immature Grans % 0.4 %; Lymphocytes % 7.8 %; MCH 30.1 pg (27.0-33.0); MCHC 32.2 % (32.0-36.0); MCV 94 fL (80-95); MPV 9.7 fL (8.0-11.0); Monocytes % 11.1 %; Neutrophils % 77.1 %; Platelet Count 388 10^3/uL (130-400); RBC 4.25 10^6/uL (3.93-5.22); RDW 13.1 % (11.7-14.6); RDW-SD 45.3 fL; WBC 11.19 10^3/uL (4.4-10.8)
--- NOTE | 2025-02-22 14:13 | W.ED.GENAD ---
Discharge Plan Disposition Patient Disposition: Home Condition: Stable Discharge Details Clinical Impression: Abdominal pain, Transaminitis Primary Care Provider: Deven Collier ED Provider: Octaviano Shipley Home Meds and New Rx's Prescriptions: Continued amlodipine 10 mg tablet 10 mg PO BID Qty: 180 3RF digoxin 125 mcg (0.125 mg) tablet 125 mcg PO QAM Qty: 90 4RF esomeprazole magnesium 40 mg capsule,delayed release(DR/EC) 40 mg PO DAILY Qty: 90 3RF fluticasone propion-salmeterol [Advair Diskus] 250-50 mcg/dose blister with device 1 inh Inhalation BID Qty: 3 4RF furosemide 20 mg tablet See Rx Instructions .ROUTE .COMPLEX Qty: 135 4RF Dose Instruction: TAKE 1 TABLET (20MG) BY MOUTH EVERY OTHER DAY ALTERNATING WITH TAKING 2 TABLETS (40MG) BY MOUTH EVERY OTHER DAY Rx Instructions: TAKE 1 TABLET (20MG) BY MOUTH EVERY OTHER DAY ALTERNATING WITH TAKING 2 TABLETS (40MG) BY MOUTH EVERY OTHER DAY montelukast 10 mg tablet 10 mg PO DAILY Qty: 90 3RF docusate sodium [Colace] 100 mg capsule 100 mg PO DAILY Qty: 90 4RF albuterol sulfate 90 mcg/actuation HFA aerosol inhaler 2 puff inhalation Q6H PRN (Reason: shortness of breath or wheezing) Qty: 8.5 12RF ipratropium-albuterol 0.5 mg-3 mg(2.5 mg base)/3 mL solution for nebulization 3 ml inhalation QID Qty: 180 0RF levalbuterol HCl 1.25 mg/3 mL solution for nebulization 1.25 mg inhalation Q4H PRN (Reason: shortness of breath or wheezing) Qty: 90 0RF guaifenesin [Mucinex] 600 mg tablet extended release 12hr 600 mg PO Q12H PRNQty: 10 0RF Discontinued doxycycline hyclate 100 mg capsule 100 mg PO BID Qty: 10 0RF ferrous sulfate 325 mg (65 mg iron) tablet,delayed release (DR/EC) 325 mg PO DAILY Patient Comments: TAKE 1 TABLET BY MOUTH ONCE DAILY benzonatate 100 mg capsule 100 mg PO TID PRN (Reason: cough) Qty: 30 0RF Discharge Instructions Instructions: Abdominal Pain, Adult ED Additional Instructions: Please follow-up with general surgery. Dr. Rojo will be happy to see you in follow-up in clinic this week. Additional outpatient diagnostic testing and treatment may be necessary. Please avoid Tylenol. Do not take any products containing acetaminophen. Please follow-up with your primary care physician. Return to the emergency department immediately for any worsening or new concerning symptoms. Referrals: [facility] [Provider Group] Deven Collier NP [Primary Care Provider] - HPI General Mode of arrival: ambulatory. Date/Time Provider Initiated Documentation: 02/22/25 13:30. Limitations to Documentation: no limitations. Information obtained by: patient. HPI Narrative: HISTORY OF PRESENT ILLNESS 74-year-old female with severe abdominal discomfort and dry heaves, particularly intense over the past week. Patient had cholecystectomy 12/29/2024 at [facility], postoperative course was unremarkable for couple weeks. Symptoms began after consuming a hamburger about 2 weeks ago. Unable to eat since, resulting in dry heaving and 7-pound weight loss over two weeks. History of COPD, hospitalized for pneumonia in Jun-Jul 2024, experienced GI bleed, endoscopy revealed precancerous gastric polyps. Diagnosed with gallbladder disease, cholecystectomy revealed precancerous gallbladder polyps. History of atrial fibrillation. Related Data Home Medications ?Medication ?Instructions ?Recorded ?Confirmed amlodipine 10 mg tablet 10 mg PO BID #180 tabs 06/08/24 02/22/25 digoxin 125 mcg (0.125 mg) tablet 125 mcg PO QAM #90 tabs 06/08/24 02/22/25 esomeprazole magnesium 40 mg 40 mg PO DAILY #90 caps 06/08/24 02/22/25 capsule,delayed release fluticasone 250 mcg-salmeterol 50 1 inh inhalation BID #3 ea 06/08/24 02/22/25 mcg/dose blistr powdr for inhalation (Advair Diskus) furosemide 20 mg tablet See Rx Instructions .Route 06/08/24 02/22/25 .COMPLEX #135 tabs montelukast 10 mg tablet 10 mg PO DAILY #90 tab-caps 06/08/24 02/22/25 guaifenesin 600 mg tablet, 600 mg PO Q12H PRN #10 tabs 06/22/24 02/22/25 extended release 12 hr (Mucinex) albuterol sulfate 90 mcg/actuation 2 puff inhalation Q6H PRN 07/22/24 02/22/25 aerosol inhaler shortness of breath or wheezing #8.5 grams docusate sodium 100 mg capsule 100 mg PO DAILY #90 caps 07/22/24 02/22/25 (Colace) ipratropium 0.5 mg-albuterol 3 mg 3 ml inhalation QID #180 mL 07/23/24 02/22/25 (2.5 mg base)/3 mL nebulization soln levalbuterol HCl 1.25 mg/3 mL 1.25 mg (3 mL) inhalation Q4H PRN 07/28/24 02/22/25 solution for nebulization shortness of breath or wheezing #90 mL Previous Rx's ?Medication ?Instructions ?Recorded amlodipine 10 mg tablet 10 mg PO BID #180 tabs 06/08/24 digoxin 125 mcg (0.125 mg) tablet 125 mcg PO QAM #90 tabs 06/08/24 esomeprazole magnesium 40 mg 40 mg PO DAILY #90 caps 06/08/24 capsule,delayed release fluticasone 250 mcg-salmeterol 50 1 inh inhalation BID #3 ea 06/08/24 mcg/dose blistr powdr for inhalation (Advair Diskus) furosemide 20 mg tablet See Rx Instructions .Route 06/08/24 .COMPLEX #135 tabs montelukast 10 mg tablet 10 mg PO DAILY #90 tab-caps 06/08/24 guaifenesin 600 mg tablet, 600 mg PO Q12H PRN #10 tabs 06/22/24 extended release 12 hr (Mucinex) albuterol sulfate 90 mcg/actuation 2 puff inhalation Q6H PRN 07/22/24 aerosol inhaler shortness of breath or wheezing #8.5 grams docusate sodium 100 mg capsule 100 mg PO DAILY #90 caps 07/22/24 (Colace) ipratropium 0.5 mg-albuterol 3 mg 3 ml inhalation QID #180 mL 07/23/24 (2.5 mg base)/3 mL nebulization soln levalbuterol HCl 1.25 mg/3 mL 1.25 mg (3 mL) inhalation Q4H PRN 07/28/24 solution for nebulization shortness of breath or wheezing #90 mL Allergies Allergy/AdvReac Type Severity Reaction Status Date / Time lorazepam (From Ativan) Allergy Severe Anaphylaxis Verified 02/22/25 13:18 diltiazem Allergy Intermediate LE and Verified 02/22/25 13:18 Facial Edema hydrochlorothiazide Allergy Mild rash Verified 02/22/25 13:18 Sulfa (Sulfonamide Allergy Unknown Other (See Verified 02/22/25 13:18 Antibiotics) Comment) umeclidinium (From Incruse AdvReac Severe Anaphylaxis Verified 02/22/25 13:18 Ellipta) metoprolol AdvReac Intermediate Fluid Verified 02/22/25 13:18 Retention lisinopril AdvReac Mild did not Verified 02/22/25 13:18 feel well General Stated Complaint: Abd Prob KAYCE: 3 Review of Systems All systems reviewed & are unremarkable except as noted in HPI and below Constitutional Constitutional: Denies fever(s) Gastrointestinal Gastrointestinal: Reports as per HPI Exam Const General: cooperative, uncomfortable and no acute distress HENMT Mouth: mucous membranes dry Eyes Conjunctivae: normal conjunctivae Sclera: normal sclerae Neck Neck: trachea midline and supple Resp Auscultation: clear to auscultation bilaterally, no rales, no rhonchi and no wheezes Cardio Jugular venous pressure: no JVD Rate: regular rate and not tachycardic Rhythm: regular rhythm GI Palpation: soft, not firm, no guarding, no masses, not rigid and tender (diffuse mild) Skin General skin exam: decreased turgor Neuro General: patient alert, patient awake and tone normal Extrem General: no edema Course Vital Signs Vital signs: Vital Signs Temperature 37.0 C 02/22/25 13:09 Pulse 97 H 02/22/25 13:09 Respiratory Rate 14 02/22/25 13:09 Blood Pressure 135/80 02/22/25 13:09 Pulse Oximetry 91 L 02/22/25 13:09 Temperature 37.0 C 02/22/25 13:49 Temperature Source Oral 02/22/25 13:49 Pulse 105 H 02/22/25 14:03 Respiratory Rate 14 02/22/25 13:49 Blood Pressure 146/93 H 02/22/25 14:03 Blood Pressure Mean 110 02/22/25 14:03 Blood Pressure Position Sitting 02/22/25 13:49 Pulse Oximetry 94 02/22/25 14:03 Oxygen Delivery Method Room Air 02/22/25 13:49 Oxygen Flow Rate 0 02/22/25 13:49 Pain Level 6 02/22/25 13:49 Medical Decision Making ASSESSMENT AND PLAN Initial Assessment: 74-year-old female with multiple medical problems including atrial fibrillation COPD, history of cholecystectomy on 12/29/2024, here with severe dry heaves and inability to over the past couple weeks, worsened over the past week. 7-pound weight loss, poor skin turgor, dry lips indicating dehydration. Normal blood pressure. Patient is tachycardic around 100 bpm. ED Course: - CT of the abdomen pelvis ordered to assess for acute intra-abdominal surgical pathology. - Administer IV fluids for dehydration - CT of the abdomen pelvis was interpreted by radiology: No acute abnormality seen to account for symptoms. Moderate fecal retention pattern. No abnormal bowel distention or wall thickening noted. Right adnexal low-density lesion 2.3 cm probable small ovarian cyst, slightly bilobed. - Labs reviewed and significant transaminitis noted (AST 282, ALT 777, alk phos 986, total bilirubin 0.9), normal lipase. Mild leukocytosis noted. Mild hyponatremia. - I spoke with the patient, she has chronically used acetaminophen for pain control but has not taken more than recommended by label. - I spoke with Dr. Rojo, on-call general surgeon, discussed ED presentation course, he will be happy to consult or see the patient in follow-up. He recommends follow-up this week in clinic. Patient will likely need outpatient MRCP. Hepatitis panel sent and pending at time of discharge. Final Assessment: Patient presents with severe dry heaves and inability to eat post-cholecystectomy, worsened over the past week. Notable weight loss and signs of dehydration. Imaging and IV fluids administered. Clinical Impression: - Transaminitis - Postprandial abdominal pain MDM Components Evaluation: - Number of Differential Diagnoses or Management Options: Gastrointestinal issues - Amount and Complexity of Data Reviewed: Imaging study - Risk of Complication and Morbidity or Mortality: Dehydration, weight loss This document was written with the assistance of [employer]. The patient consented to its use. Quality:SDOH Health Related Social Needs: Health related social needs details lives with son ASHLEE All Active Problems (Updated 02/22/25 @ 16:16 by Octaviano Shipley MD) Transaminitis (Acute) Abdominal pain (Acute) Cholelithiasis (Acute) Elevated LFTs (Acute) Chronic respiratory failure (Acute) Goals of care, counseling/discussion (Acute) Right ventricular failure (Acute) Pulmonary infiltrates (Acute) Chronic hypoxic respiratory failure (Acute) Sacral decubitus ulcer (Acute) Uvular swelling (Acute) Chronic obstructive lung disease (Chronic) h/o tobacco use, quit 2008 CAP (community acquired pneumonia) (Acute) COPD exacerbation (Acute) Cervical arthritis with myelopathy (Acute) Arthritis (Acute 02/10/13) Osteoporosis (Acute 01/14/08) Tachycardia (Chronic) Medical History PAF (paroxysmal atrial fibrillation) History of GI diverticular bleed Emphysema lung Hypercapnic respiratory failure Pulmonary hypertension Anemia Heart failure with preserved ejection fraction (HFpEF, >= 50%) GERD (gastroesophageal reflux disease) GI bleed Hypomagnesemia Bilateral lower extremity edema Acute respiratory failure with hypoxia HTN (hypertension) COVID-[address] Tobacco dependence due to cigarettes Quit smoking when she was 59 years old COVID-19 -associated with COPD exacerbation Parotid mass Resolved after 3 months without intervention Acute on chronic respiratory failure with hypoxia and hypercapnia Acute on chronic diastolic CHF (congestive heart failure) CAP (community acquired pneumonia) GERD (gastroesophageal reflux disease) HTN (hypertension) Surgical History Endoscopic Carpal Tunnel release (03/31/13) Left 7.2.13 Family History Mother Essential hypertension Hyperlipidemia Adopted Dementia Father Heart disease Neoplasm LUNG Lung cancer Sister No problems noted. Sister No problems noted. Brother No problems noted. Brother No problems noted. Maternal Grandfather Stroke Paternal Grandfather Heart disease Maternal Grandmother Heart disease Paternal Grandmother Stroke Son Diabetes Essential hypertension Daughter No problems noted. Social History Smoking/Tobacco Use Status: Former Tobacco Use tobacco type: cigarettes Quit Date: 09/30/13 Tobacco: How many years used: 56 Quit status: quit date established Second Hand Exposure: Yes Smoking risk assessment performed?: Yes Alcohol Intake: never Drug use: Never Substance use type: does not use Counseling given: No Counseling provided: none Caregiver/Support person: No Household members: family Housing: house Communication Needs: None Do you need help understanding health information?: Never Pets and animals: Yes Pets and animals: dog(s) Sexually active: No Do you think of yourself as: straight/heterosexual Current gender identity: female What is your relationship status?: How often do you talk on the phone with friends or family?: three or more times per week How often do you get together with friends or relatives?: three or more times per week Do you belong to any clubs or organized social groups?: no Panel score (0-1 are the most socially isolated patients): 1 What type of physical activity do you participate in: none Special juan needs: No Seatbelt use: sometimes Helmet use: No Drive intox or ride w/intox lokie driver: No Do you feel safe at home: Yes Do you feel safe in your relationship?: Yes Additional Social history: Lives with Son on [facility] Female Reproductive History Menstrual Menopause type: natural
[2025-02-22 14:15] LABS: Absolute Neutrophil Count 8.63 10^3/uL (1.2-6.7)
[2025-02-22 14:30] LABS: ALT 777 U/L (14-59); AST 282 U/L (15-37); Albumin 3.9 g/dL (3.4-5.0); Alkaline Phosphatase 986 U/L (46-116); Anion Gap 4.5 mmol/L (3-11); BUN 20 mg/dL (7-18); Bilirubin, Total 0.9 mg/dL (0.2-1.0); CO2 32.5 mmol/L (21.0-32.0); CREATININE 1.1 mg/dL (0.55-1.02); Calcium 9.8 mg/dL (8.5-10.1); Chloride 96 mmol/L (98-107); Glucose 122 mg/dL (74-106); Lipase 21 U/L (<78); Magnesium 1.8 mg/dL (1.8-2.4); Sodium 133 mmol/L (136-145); Total Protein 8.5 g/dL (6.4-8.2)
[2025-02-22] MEDS: Lactated Ringers 500 ML 250 ML IV (14:30)
[2025-02-22 14:32] LABS: Bilirubin Small (Negative); Blood Negative (Negative); Clarity Clear (Clear); Glucose Negative (Negative); Ketones Trace mg/dL (Negative); Leukocyte Esterase Small (Negative); Nitrite Negative (Negative); Specific Gravity 1.015 (1.005-1.025); Urobilinogen 0.2 mg/dL (Up to 0.2); pH 5.5 (5-8)
[2025-02-22 14:44] LABS: Bacteria Rare HPF (Negative); C & S Indicated? No; Casts 0-2 Hyaline LPF (Negative); Crystals Negative HPF (Negative); Epithelial Cells Few HPF (Negative); Mucus Negative (Negative); Other Cells Rare Transitional (Negative); RBC 0-2 HPF (0-2)
[2025-02-22] MEDS: Normal Saline - Diluent 50 ML VIAL IJ (14:57)
[2025-02-22] MEDS: Omnipaque 350 MG/ML 100 ML BTL 75 ML IJ (14:58)
--- NOTE | 2025-02-22 15:46 | DI.[facility]AD_ITS ---
PROCEDURE INFORMATION: Exam: CT Abdomen And Pelvis With Contrast Exam date and time: 02/22/2025 2:52 PM Age: 74 years old Clinical indication: Abdominal pain; Generalized TECHNIQUE: Imaging protocol: Computed tomography of the abdomen and pelvis with contrast. Contrast material: OMNIPAQUE 350; Contrast volume: 75 ml; Contrast route: INTRAVENOUS (IV); COMPARISON: CT ABDOMEN PELVIS W 08/08/2024 1:05 PM FINDINGS: Liver: Normal. No mass. Gallbladder and biliary ducts: Gallbladder surgically absent. Pancreas: Normal. No ductal dilation. Spleen: Normal. No splenomegaly. Adrenal glands: Normal. No mass. Kidneys and ureters: Normal. No hydronephrosis. Stomach and bowel: Moderate fecal retention pattern. No abnormal bowel distension or wall thickening noted. Diverticulosis without acute diverticulitis. Appendix: No evidence of appendicitis. Intraperitoneal space: Unremarkable. No free air. No significant fluid collection. Vasculature: Moderate atherosclerotic change noted in the vasculature. Lymph nodes: Unremarkable. No enlarged lymph nodes. Urinary bladder: Unremarkable as visualized. Reproductive: Right adnexal low-density lesion 2.3 cm, probable small ovarian cyst, slightly bilobed. Bones/joints: Mild levoscoliosis with spondylosis. Soft tissues: Unremarkable. IMPRESSION: No acute abnormality seen to account for symptoms. Dictated and Authenticated by: Joanna Atkinson MD. Orderin Quinten Brumfield MD
--- NOTE | 2025-02-22 16:06 | SCONE_ITS ---
Date of service: 02/23/25 History of Present Illness History of Present Illness Chief Complaint: abdominal pain PFSH All Active Problems Cholelithiasis (Acute) Elevated LFTs (Acute) Chronic respiratory failure (Acute) Goals of care, counseling/discussion (Acute) Right ventricular failure (Acute) Pulmonary infiltrates (Acute) Chronic hypoxic respiratory failure (Acute) Sacral decubitus ulcer (Acute) Uvular swelling (Acute) Chronic obstructive lung disease (Chronic) h/o tobacco use, quit 2008 CAP (community acquired pneumonia) (Acute) COPD exacerbation (Acute) Cervical arthritis with myelopathy (Acute) Arthritis (Acute 02/10/13) Osteoporosis (Acute 01/14/08) Tachycardia (Chronic) Medical History PAF (paroxysmal atrial fibrillation) History of GI diverticular bleed Emphysema lung Hypercapnic respiratory failure Pulmonary hypertension Anemia Heart failure with preserved ejection fraction (HFpEF, >= 50%) GERD (gastroesophageal reflux disease) GI bleed Hypomagnesemia Bilateral lower extremity edema Acute respiratory failure with hypoxia HTN (hypertension) COVID-[address] Tobacco dependence due to cigarettes Quit smoking when she was 59 years old COVID-19 -associated with COPD exacerbation Parotid mass Resolved after 3 months without intervention Acute on chronic respiratory failure with hypoxia and hypercapnia Acute on chronic diastolic CHF (congestive heart failure) CAP (community acquired pneumonia) GERD (gastroesophageal reflux disease) HTN (hypertension) Surgical History Endoscopic Carpal Tunnel release (03/31/13) Left 7.2.13 Family History Mother Essential hypertension Hyperlipidemia Adopted Dementia Father Heart disease Neoplasm LUNG Lung cancer Sister No problems noted. Sister No problems noted. Brother No problems noted. Brother No problems noted. Maternal Grandfather Stroke Paternal Grandfather Heart disease Maternal Grandmother Heart disease Paternal Grandmother Stroke Son Diabetes Essential hypertension Daughter No problems noted. Social History Smoking/Tobacco Use Status: Former Tobacco Use tobacco type: cigarettes Quit Date: 09/30/13 Tobacco: How many years used: 56 Quit status: quit date established Second Hand Exposure: Yes Smoking risk assessment performed?: Yes Alcohol Intake: never Drug use: Never Substance use type: does not use Counseling given: No Counseling provided: none Caregiver/Support person: No Household members: family Housing: house Communication Needs: None Do you need help understanding health information?: Never Pets and animals: Yes Pets and animals: dog(s) Sexually active: No Do you think of yourself as: straight/heterosexual Current gender identity: female What is your relationship status?: How often do you talk on the phone with friends or family?: three or more times per week How often do you get together with friends or relatives?: three or more times per week Do you belong to any clubs or organized social groups?: no Panel score (0-1 are the most socially isolated patients): 1 What type of physical activity do you participate in: none Special juan needs: No Seatbelt use: sometimes Helmet use: No Drive intox or ride w/intox hazardous materials driver: No Do you feel safe at home: Yes Do you feel safe in your relationship?: Yes Additional Social history: [place] Son [address] [facility] Female Reproductive History Menstrual Menopause type: natural Results Last Vital Signs Temp 98.6 F 02/22/25 13:49 Pulse 84 02/22/25 14:31 Resp 14 02/22/25 13:49 BP 144/65 H 02/22/25 14:31 Pulse Ox 96 02/22/25 14:32 Labs 02/22/25 14:02 02/22/25 14:02 Labs: Laboratory Results - last 24 hr 02/22/25 02/22/25 14:02 14:25 WBC 11.19 H RBC 4.25 Hgb 12.8 Hct 39.8 MCV 94 MCH 30.1 MCHC 32.2 RDW 13.1 Plt Count 388 MPV 9.7 Immature Gran % 0.4 Neutrophils % 77.1 Lymphocytes % 7.8 Monocytes % 11.1 Eosinophils % 3.1 Basophils % 0.5 Nucleated RBC % 0.0 Absolute Neutrophils 8.63 H Absolute Lymphocytes 0.87 L Absolute Monocytes 1.24 H Absolute Eosinophils 0.35 Absolute Basophils 0.06 Sodium 133 L Potassium 4.0 Chloride 96 L Carbon Dioxide 32.5 H Anion Gap 4.5 BUN 20 H Creatinine 1.1 H Est GFR (CKD-EPI 2020) 52.40 Glucose 122 H Calcium 9.8 Magnesium 1.8 Total Bilirubin 0.9 AST 282 H ALT 777 H Alkaline Phosphatase 986 H Total Protein 8.5 H Albumin 3.9 Lipase 21 Urine Color Yellow Urine Clarity Clear Urine pH 5.5 Ur Specific Arena 1.015 Urine Protein 30 H Urine Ketones Trace H Urine Blood Negative Urine Nitrite Negative Urine Bilirubin Small H Urine Urobilinogen 0.2 Ur Leukocyte Esterase Small H Urine RBC 0-2 Urine WBC 3-5 Ur Epithelial Cells Few Urine Crystals Negative Urine Bacteria Rare Urine Casts 0-2 Hyaline Urine Mucus Negative Urine Other Rare Transitional Ur Culture Indicated? No Urine Glucose Negative
[2025-02-24 12:14] LABS: Hepatitis A Antibody IgM Negative (Negative); Hepatitis B Core Antibody Negative (Negative); Hepatitis B surface Ag Negative (Negative); Hepatitis C Ab w Rflx HCV PCR Negative (Negative)
== END 2025-02-22 16:32 | disposition home or self-care (01) ==
PROVIDERS: Emergency Provider Student in an Organized Health Care Education/Training Program; PCP Nurse Practitioner Family
DX: R10.30 Lower abdominal pain, unspecified (principal); R74.01 Elevation of levels of liver transaminase levels; Z90.49 Acquired absence of other specified parts of digestive tract
CPT/HCPCS: 99284; 99285; 36415; 80053; 83690; 86704; 86709; 86803; 87340; 96360; 96361; 74177; 81003; 81015; 83735; 85025; J3490

== ENCOUNTER 2025-03-30 03:07 | Outpatient (CLI) | payer MEDICARE, SELFPAY ==
--- NOTE | 2025-03-30 06:00 | DI.MRI_ITS ---
Exam(s) MR ABDOMEN WO EXAM: MR ABDOMEN WO CLINICAL HISTORY: Abnormal LFT after cholecystectomy,transaminitis,r74.01 TECHNIQUE: Multiplanar multisequence MRI of the Abdomen was performed. MRCP sequences also performed. COMPARISON: CT CT ABDOMEN PELVIS W from 08/08/2024 US US ABDOMEN from 08/10/[address] ABDOMEN PELVIS W from 02/22/2025 FINDINGS: Lung bases: Unremarkable. Liver: Unremarkable. Gallbladder: Unremarkable cholecystectomy. Bile Ducts: Common bile duct is mildly dilated to 8 millimeters. No common duct stones are visible. Mild intrahepatic biliary dilatation. Pancreas: Unremarkable. Pancreatic duct is not dilated. Adrenals: Unremarkable. Kidneys: Multiple tiny renal cysts. Spleen: Unremarkable. Aorta: Unremarkable. Soft Tissues: Unremarkable. Bone: Degenerative changes in the lumbar spine and mild degenerative lumbar scoliosis. Lymph Nodes: Unremarkable. Mesentery: No ascites. No focal fluid collection. Bowel: No abnormal dilatation or wall thickening. IMPRESSION: Stable mild biliary dilatation status post cholecystectomy. No evidence of common bile duct stone. DATA REPOSITORY:
--- NOTE | 2025-05-15 12:30 | DI.RAD_ITS ---
Exam(s) XR CHEST 2V PA LATERAL EXAM: XR CHEST 2V PA LATERAL CLINICAL HISTORY: eval pathology TECHNIQUE: 2D digital imaging was performed. Two views. COMPARISON: CR XR PORTABLE CHEST AP from 11/16/2024 FINDINGS: HEART: Mildly enlarged. Aorta: Not dilated. PULMONARY VASCULATURE: Normal. MEDIASTINUM: Unremarkable. LUNGS: Hyperinflation. Mildly increased chronic interstitial changes. Linear scarring in the right upper lobe. The lungs are otherwise clear. Clear. PLEURAL SPACE: No pleural effusion or pneumothorax. BONE:Mild dextroscoliosis. No compression fractures. SOFT TISSUES: Unremarkable. IMPRESSION: No acute abnormality. The preliminary [facility] report was reviewed. DATA REPOSITORY: RADIATION DOSE DELIVERED:
--- NOTE | 2025-05-15 14:57 | DI.[facility]_ITS ---
PROCEDURE INFORMATION: Exam: XR Chest Exam date and time: 05/15/2025 12:40 PM Age: 74 years old Clinical indication: Shortness of breath; R/O pneumonia TECHNIQUE: Imaging protocol: Radiologic exam of the chest. Views: 2 views. COMPARISON: CR XR PORTABLE CHEST AP 11/16/2024 2:39 PM FINDINGS: Lungs: Bilateral apical fibrotic changes. The lungs are hyperinflated, consistent with underlying small airways disease. Moderate centrilobular emphysematous changes are present. There is no evidence of focal pulmonary consolidation. Pleural spaces: Unremarkable. No pleural effusion. No pneumothorax. Heart/Mediastinum: The heart is enlarged. Vasculature: There are aortic arch calcifications. Bones/joints: Mild degenerative disease of bilateral acromioclavicular joints. Curvature of the thoracic spine convex to the right. IMPRESSION: No acute cardiopulmonary process. Dictated and Authenticated by: Antoni Adan MD. Orderin Crissy Smith MD
== END 2025-03-30 03:27 ==
PROVIDERS: PCP Nurse Practitioner Family; Visit Provider Surgery
DX: R74.01 Elevation of levels of liver transaminase levels (principal); Z98.890 Other specified postprocedural states
CPT/HCPCS: 74181

== ENCOUNTER 2025-05-15 11:05 | Outpatient (REF) | payer MEDICARE, SELFPAY ==
[2025-05-15 17:09] LABS: Abs Immature Grans 0.04 10^3/uL (0.0-0.06); HCT 38.9 % (36.0-46.0); HGB 12.6 g/dL (11.2-15.7); Immature Grans % 0.5 %; MCH 29.6 pg (27.0-33.0); MCHC 32.4 % (32.0-36.0); MCV 92 fL (80-95); MPV 10.0 fL (8.0-11.0); Platelet Count 368 10^3/uL (130-400); RBC 4.25 10^6/uL (3.93-5.22); RDW 12.3 % (11.7-14.6); RDW-SD 41.1 fL; WBC 8.60 10^3/uL (4.4-10.8)
[2025-05-15 17:19] LABS: ALT 29 U/L (14-59); AST 20 U/L (15-37); Albumin 4.3 g/dL (3.4-5.0); Alkaline Phosphatase 116 U/L (46-116); Anion Gap 4.6 mmol/L (3-11); BUN 16 mg/dL (7-18); Bilirubin, Total 0.4 mg/dL (0.2-1.0); CO2 32.4 mmol/L (21.0-32.0); Calcium 9.4 mg/dL (8.5-10.1); Chloride 96 mmol/L (98-107); Estimated GFR 76.79 (mL/min/1.73m2); Glucose 106 mg/dL (74-106); Potassium 5.2 mmol/L (3.5-5.1); Sodium 133 mmol/L (136-145); Total Protein 7.7 g/dL (6.4-8.2)
== END 2025-05-15 11:06 | disposition home or self-care (01) ==
LOC: LBN 11:05
PROVIDERS: PCP Nurse Practitioner Family; Visit Provider Nurse Practitioner Family
DX: R79.89 Other specified abnormal findings of blood chemistry (principal); D64.0 Hereditary sideroblastic anemia
CPT/HCPCS: 80053; 85025

== ENCOUNTER 2025-05-15 17:27 | Outpatient (REF) | payer MEDICARE, SELFPAY | END 2025-05-15 17:47 | LOC: DI 17:27 | PROVIDERS: PCP Nurse Practitioner Family; Visit Provider Nurse Practitioner Family | DX: R07.9 Chest pain, unspecified (principal) | CPT/HCPCS: 71046 ==

== ENCOUNTER 2025-06-22 12:38 | Outpatient (REF) | payer MEDICARE, SELFPAY ==
[2025-06-22 18:05] LABS: Abs Immature Grans 0.02 10^3/uL (0.0-0.06); HCT 38.8 % (36.0-46.0); HGB 12.1 g/dL (11.2-15.7); Immature Grans % 0.2 %; MCH 28.9 pg (27.0-33.0); MCHC 31.2 % (32.0-36.0); MCV 93 fL (80-95); MPV 10.2 fL (8.0-11.0); Platelet Count 323 10^3/uL (130-400); RBC 4.18 10^6/uL (3.93-5.22); RDW 13.9 % (11.7-14.6); RDW-SD 47.8 fL; WBC 8.11 10^3/uL (4.4-10.8)
[2025-06-22 18:28] LABS: ALT 23 U/L (14-59); AST 17 U/L (15-37); Albumin 4.2 g/dL (3.4-5.0); Alkaline Phosphatase 100 U/L (46-116); Anion Gap 8.0 mmol/L (3-11); BUN 18 mg/dL (7-18); Bilirubin, Total 0.3 mg/dL (0.2-1.0); CO2 31.0 mmol/L (21.0-32.0); Calcium 9.6 mg/dL (8.5-10.1); Chloride 100 mmol/L (98-107); Estimated GFR 76.79 (mL/min/1.73m2); Glucose 100 mg/dL (74-106); Potassium 4.8 mmol/L (3.5-5.1); Sodium 139 mmol/L (136-145); Total Protein 7.9 g/dL (6.4-8.2)
== END 2025-06-22 12:39 | disposition home or self-care (01) ==
LOC: LOS 12:38
PROVIDERS: PCP Nurse Practitioner Family; Visit Provider Nurse Practitioner Family
DX: D64.9 Anemia, unspecified (principal); R79.89 Other specified abnormal findings of blood chemistry
CPT/HCPCS: 36415; 80053; 85025